=== PATIENT | male | born 1955 | race Caucasian/White ===

== ENCOUNTER 2024-06-20 20:24 | Inpatient (IN) | payer OTHER, SELFPAY ==
[2024-06-20 18:08] VITALS: BP 117/65
[2024-06-20 18:25] LABS: % Basophils 0.6 % (0-2); % Eosinophils 2.5 % (0-6); % Immature Granulocytes 0.1 % (0-0.5); % Lymphocytes 12.6 % (20.5-51.1); % Monocytes 8.1 % (1.7-9.3); % Neutrophils 76.1 % (42.2-75.2); Absolute Eosinophils 0.2 10^3/uL (0-0.7); Absolute Lymphocytes 0.9 10^3/uL (1.2-3.4); Absolute Monocytes 0.6 10^3/uL (0.1-0.6); Absolute Neutrophils 5.2 10^3/uL (1.4-6.5); Hematocrit 23.1 % (39.0-52.0); Hemoglobin 7.7 g/dL (13.0-18.0); Mean Corp Hgb Conc. 33.3 g/dL (33.0-37.0); Mean Corpuscular Hgb 30.9 pg (27.0-31.0); Mean Corpuscular Volume 92.8 fL (80.0-94.0); Mean Platelet Volume 9.5 fL (7.4-10.4); Nucleated Red Blood Cells % 0 % (-); Platelet Count 179 10^3/uL (130-400); Red Blood Cell Count 2.49 10^6/uL (4.70-6.10); Red Cell Dist. Width 15.6 % (11.5-14.5); White Blood Cell Count 6.9 10^3/uL (4.8-10.8)
[2024-06-20 18:33] LABS: ALT (SGPT) 28 U/L (0-50); AST (SGOT) 37 U/L (17-59); Albumin 3.3 g/dl (3.5-5.0); Alkaline Phosphatase 168 U/L (38-126); Blood Urea Nitrogen 41 mg/dl (9-20); Calcium 12.7 mg/dl (8.4-10.2); Carbon Dioxide 28 mmol/L (22-30); Chloride 93 mmol/L (98-107); Glucose 116 mg/dl (70-99); Potassium 3.9 mmol/L (3.5-5.1); Sodium 131 mmol/L (135-145); Total Bilirubin 0.6 mg/dl (0.2-1.3); Total Protein 6.1 g/dl (6.3-8.2); eGFR 24.89
[2024-06-20 18:47] LABS: NT-proBNP > 27000 pg/ml
--- NOTE | 2024-06-20 19:06 | ED.GENMED ---
History of Present Illness
<Mitra Spencer MD - Last Filed: 06/20/24 19:20>
General
Chief Complaint: Breathing Problem
Time Seen by Provider: 06/20/24 18:09
<Josemanuel Abel Jr., PA-C - Last Filed: 06/20/24 20:54>
General
Source: patient and ambulance crew
Exam Limitations: none
Nursing documentation reviewed up to this point in time: agreed with
History of Present Illness
History of Present Illness:
68-year-old male coming from nursing facility with concerns of worsening shortness of breath and cough over the past few days. Apparently does wear nasal cannula according to the nursing staff but he claims he does not typically use this on a daily
basis. Here he is requiring 4 L for pulse ox in the mid 90s. He claims has been coughing up green sputum denies any chest pain denies any specific symptoms other than shortness of breath and cough.
Review of Systems
<Josemanuel Abel Jr., PA-C - Last Filed: 06/20/24 20:54>
Review of Systems
Allergies reviewed?: Yes
All Other Systems: ROS reviewed and negative except as documented in HPI and ROS
Phy Exam
<Josemanuel Abel Jr., PA-C - Last Filed: 06/20/24 20:54>
Physical Exam
Physical Exam:
GENERAL: Alert
EYE: pupils equal and reactive
NECK: Supple, no significant adenopathy.
ENT: o/p clr, mmm.
CARDIAC: Regular rate and rhythm .
LUNGS: Diminished lung sounds to the left side. Scattered rales to the right side slightly to But able to use in full sentences.
ABDOMEN: Soft, without focal tenderness, no r/g, no cvat
NEUROLOGICAL: Alert and oriented, no focal neuro deficits
SKIN: Warm and dry, skin intact.
MUSCULOSKELETAL: No edema, well perfused.
PSYCH: Normal and appropriate interaction.
Scores
<Josemanuel Abel Jr., PA-C - Last Filed: 06/20/24 20:54>
Heart Failure Risk
Heart Failure Risk Score: Not Applicable
Course
<Mitra Spencer MD - Last Filed: 06/20/24 19:20>
Orders/Labs/Results
Orders:
Orders
06/20/24 18:11
Electrocardiogram (*1) Urgent
Reason for Study: Shortness of Breath
Cr Chest Portable [CR Chest Portable - 1 View] Urgent
Comment:
Reason For Exam: SOB
Reason Study Needs to be Portable: Patient Unstable
06/20/24 18:12
EKG- Treatment ONCE
06/20/24 18:13
Complete Blood Count/With Diff Urgent
Comprehensive Metabolic Panel Urgent
NT-proBNP Urgent
Troponin I Urgent
06/20/24 19:23
Cefepime HCl [Maxipime] 2,000 mg IV NOW STA
Vancomycin [Vancocin] 1,500 mg 0.9% Sodium Chloride 500 ml [Nss] 500 ml IV PRE PROCEDURE
06/20/24 19:[address] [CT Chest W/o Iv Contrast] Urgent
Comment:
Reason For Exam: left sided effusion
06/20/24 19:36
COVID-19 Antigen Urgent
Source: Nasal Swab
Influenza A+B Rapid Molecular Urgent
APRIL Source: Nasal Swab
Specimen Description:
06/20/24 19:44
Vancomycin [Vancocin] 2,000 mg 0.9% Sodium Chloride 500 ml [Nss] 500 ml IV NOW
06/20/24 20:02
Aspirin 325 mg PO NOW STA
Heparin 4,000 units IV NOW STA
Heparin Protocol- PTT Orders As Directed
PTT per Heparin protocol: -Obtain CBC and baseline PTT - if not already collected.
-Obtain PTT 6 hours from start of infusion. Then, every 6 hours until 2 consecutive
PTT's are therapeutic. Then, PTT Daily.
-With each rate change, obtain PTT every 6 hours until 2 consecutive PTT's are
therapeutic. Then, PTT Daily.
Nursing to Place Non Medication Order As Directed
Physician Order: PTT 6 hours after initial start of Heparin infusion
Above order entered?: Yes
06/20/24 20:14
Admit/Transfer Patient As Directed
Co-Sign Provider:
Level of Care: Inpatient admission
Assign to:: Telemetry
Physician / Group: htay
Diagnosis: Symptomatic Lt pleural effusion, NSTEMI, Acute CHF flare, Bradycardia, ESRD
Reason for Telemetry: Subacute Heart Failure
Date to Stop Telemetry: 06/22/24
Time to Stop Telemetry: 11:00
Reason for Hospitalization: Symptomatic Lt pleural effusion, NSTEMI, Acute CHF flare, Bradycardia, ESRD on HD
Expected length of stay greater than two midnights?: Yes
ELOS- Estimated Length of Stay in days: 5
I certify the patient meets the requirements for IP care: Yes
06/20/24 20:15
Heparin 79236 Units/250 ml 25,000 units in 250 ml IV PER PROTOCOL
Weight to be used for heparin protocol in kilograms (kg):: 78.8
Protocol:: Cardiac Tx/Acute Coronary
PTT Goal Range to be used:: PTT 73 to 111 seconds
Order type:: Initial
INITIAL Infusion Dose (UNITS/KG/hr) & then follow protocol:: 12 units/kg/hr
Infusion Dose in UNITS/hr & then follow protocol (UNITS/hr):: 950
INFUSION RATE in mL/hr & then follow protocol (mL/hr):: 9.5
PTT less than or equal to 64 seconds:: Increase rate by 200 units/hr (+ 2 mL/hr)
PTT 64.1 to 72.9 seconds:: Increase rate by 100 units/hr (+ 1 mL/hr)
PTT 73 to 111 seconds:: Target Range. No change in rate.
PTT 111.1 to 130.9 seconds:: Decrease rate by 100 units/hr (- 1 mL/hr)
PTT 131 to 199.9 seconds:: HOLD for 1 hr. Then decrease rate by 200 units/hr (- 2 mL/hr)
PTT greater than or equal to 200 seconds:: HOLD for 2 hrs & Notify Provider. Then decrease by 200 units/hr (-
2 mL/hr)
Lab follow-up:: Each change, PTT q6h until 2 consecutive are therapeutic. Then PTT
daily.
06/20/24 20:17
Lactic Acid Urgent
PTT Urgent
Comment: Obtain baseline before beginning heparin infusion if not already collected
Blood Culture Q30M
APRIL Source: Blood/Venous
Specimen Description:
Blood Culture Q30M
APRIL Source: Blood/Venous
Specimen Description:
06/22/24 06:00
Complete Blood Count/No Diff Q2D
Comment: notify provider: Platelet count < 130,000 or decrease by 50% from baseline
06/22/24 11:00
DC Protocol for Telemetry ONCE
06/24/24 06:00
Complete Blood Count/No Diff Q2D
Comment: notify provider: Platelet count < 130,000 or decrease by 50% from baseline
06/26/24 06:00
Complete Blood Count/No Diff Q2D
Comment: notify provider: Platelet count < 130,000 or decrease by 50% from baseline
06/28/24 06:00
Complete Blood Count/No Diff Q2D
Comment: notify provider: Platelet count < 130,000 or decrease by 50% from baseline
06/30/24 06:00
Complete Blood Count/No Diff Q2D
Comment: notify provider: Platelet count < 130,000 or decrease by 50% from baseline
07/02/24 06:00
Complete Blood Count/No Diff Q2D
Comment: notify provider: Platelet count < 130,000 or decrease by 50% from baseline
07/04/24 06:00
Complete Blood Count/No Diff Q2D
Comment: notify provider: Platelet count < 130,000 or decrease by 50% from baseline
07/06/24 06:00
Complete Blood Count/No Diff Q2D
Comment: notify provider: Platelet count < 130,000 or decrease by 50% from baseline
Abnormal Lab Results
06/20/24 06/20/24
18:13 20:17
RBC 2.49 L 10^6/uL
(4.70-6.10)
Hgb 7.7 L g/dL
(13.0-18.0)
Hct 23.1 L %
(39.0-52.0)
RDW 15.6 H %
(11.5-14.5)
Absolute Lymphs (auto) 0.9 L 10^3/uL
(1.2-3.4)
Neutrophils % 76.1 H %
(42.2-75.2)
Lymphocytes % 12.6 L %
(20.5-51.1)
APTT 36.5 H Sec
(23.4-35.0)
Sodium 131 L mmol/L
(135-145)
Chloride 93 L mmol/L
(98-107)
BUN 41 H mg/dl
(9-20)
Creatinine 2.7 H mg/dL
(0.7-1.3)
Glucose 116 H mg/dl
(70-99)
Calcium 12.7 H mg/dl
(8.4-10.2)
Alkaline Phosphatase 168 H U/L
(38-126)
Troponin I 9.830 H* ng/ml
Total Protein 6.1 L g/dl
(6.3-8.2)
Albumin 3.3 L g/dl
(3.5-5.0)
06/20/24 18:13
06/20/24 18:13
Vital Signs
Initial and Last Documented VS:
Initial Vital Signs
Temp Pulse Resp BP Pulse Ox
97.4 F 41 25 117/65 97
06/20/24 18:08 06/20/24 18:08 06/20/24 18:08 06/20/24 18:08 06/20/24 18:08
Last Documented Vital Signs
Temp Pulse Resp BP Pulse Ox
97.4 F 40 26 117/64 97
06/20/24 18:08 06/20/24 19:25 06/20/24 19:25 06/20/24 19:25 06/20/24 19:25
<Josemanuel Abel Jr., PA-C - Last Filed: 06/20/24 20:54>
Orders/Labs/Results
Orders:
Orders
06/20/24 18:11
Electrocardiogram (*1) Urgent
Reason for Study: Shortness of Breath
Cr Chest Portable [CR Chest Portable - 1 View] Urgent
Comment:
Reason For Exam: SOB
Reason Study Needs to be Portable: Patient Unstable
06/20/24 18:12
EKG- Treatment ONCE
06/20/24 18:13
Complete Blood Count/With Diff Urgent
Comprehensive Metabolic Panel Urgent
NT-proBNP Urgent
Troponin I Urgent
06/20/24 19:23
Cefepime HCl [Maxipime] 2,000 mg IV NOW STA
Vancomycin [Vancocin] 1,500 mg 0.9% Sodium Chloride 500 ml [Nss] 500 ml IV PRE PROCEDURE
06/20/24 19:[address] [CT Chest W/o Iv Contrast] Urgent
Comment:
Reason For Exam: left sided effusion
06/20/24 19:36
COVID-19 Antigen Urgent
Source: Nasal Swab
Influenza A+B Rapid Molecular Urgent
APRIL Source: Nasal Swab
Specimen Description:
06/20/24 19:44
Vancomycin [Vancocin] 2,000 mg 0.9% Sodium Chloride 500 ml [Nss] 500 ml IV NOW
06/20/24 20:02
Aspirin 325 mg PO NOW STA
Heparin 4,000 units IV NOW STA
Heparin Protocol- PTT Orders As Directed
PTT per Heparin protocol: -Obtain CBC and baseline PTT - if not already collected.
-Obtain PTT 6 hours from start of infusion. Then, every 6 hours until 2 consecutive
PTT's are therapeutic. Then, PTT Daily.
-With each rate change, obtain PTT every 6 hours until 2 consecutive PTT's are
therapeutic. Then, PTT Daily.
Nursing to Place Non Medication Order As Directed
Physician Order: PTT 6 hours after initial start of Heparin infusion
Above order entered?: Yes
06/20/24 20:14
Admit/Transfer Patient As Directed
Co-Sign Provider:
Level of Care: Inpatient admission
Assign to:: Telemetry
Physician / Group: htay
Diagnosis: Symptomatic Lt pleural effusion, NSTEMI, Acute CHF flare, Bradycardia, ESRD
Reason for Telemetry: Subacute Heart Failure
Date to Stop Telemetry: 06/22/24
Time to Stop Telemetry: 11:00
Reason for Hospitalization: Symptomatic Lt pleural effusion, NSTEMI, Acute CHF flare, Bradycardia, ESRD on HD
Expected length of stay greater than two midnights?: Yes
ELOS- Estimated Length of Stay in days: 5
I certify the patient meets the requirements for IP care: Yes
06/20/24 20:15
Heparin 95696 Units/250 ml 25,000 units in 250 ml IV PER PROTOCOL
Weight to be used for heparin protocol in kilograms (kg):: 78.8
Protocol:: Cardiac Tx/Acute Coronary
PTT Goal Range to be used:: PTT 73 to 111 seconds
Order type:: Initial
INITIAL Infusion Dose (UNITS/KG/hr) & then follow protocol:: 12 units/kg/hr
Infusion Dose in UNITS/hr & then follow protocol (UNITS/hr):: 950
INFUSION RATE in mL/hr & then follow protocol (mL/hr):: 9.5
PTT less than or equal to 64 seconds:: Increase rate by 200 units/hr (+ 2 mL/hr)
PTT 64.1 to 72.9 seconds:: Increase rate by 100 units/hr (+ 1 mL/hr)
PTT 73 to 111 seconds:: Target Range. No change in rate.
PTT 111.1 to 130.9 seconds:: Decrease rate by 100 units/hr (- 1 mL/hr)
PTT 131 to 199.9 seconds:: HOLD for 1 hr. Then decrease rate by 200 units/hr (- 2 mL/hr)
PTT greater than or equal to 200 seconds:: HOLD for 2 hrs & Notify Provider. Then decrease by 200 units/hr (-
2 mL/hr)
Lab follow-up:: Each change, PTT q6h until 2 consecutive are therapeutic. Then PTT
daily.
06/20/24 20:17
Lactic Acid Urgent
PTT Urgent
Comment: Obtain baseline before beginning heparin infusion if not already collected
Blood Culture Q30M
APRIL Source: Blood/Venous
Specimen Description:
Blood Culture Q30M
APRIL Source: Blood/Venous
Specimen Description:
06/22/24 06:00
Complete Blood Count/No Diff Q2D
Comment: notify provider: Platelet count < 130,000 or decrease by 50% from baseline
06/22/24 11:00
DC Protocol for Telemetry ONCE
06/24/24 06:00
Complete Blood Count/No Diff Q2D
Comment: notify provider: Platelet count < 130,000 or decrease by 50% from baseline
06/26/24 06:00
Complete Blood Count/No Diff Q2D
Comment: notify provider: Platelet count < 130,000 or decrease by 50% from baseline
06/28/24 06:00
Complete Blood Count/No Diff Q2D
Comment: notify provider: Platelet count < 130,000 or decrease by 50% from baseline
06/30/24 06:00
Complete Blood Count/No Diff Q2D
Comment: notify provider: Platelet count < 130,000 or decrease by 50% from baseline
07/02/24 06:00
Complete Blood Count/No Diff Q2D
Comment: notify provider: Platelet count < 130,000 or decrease by 50% from baseline
07/04/24 06:00
Complete Blood Count/No Diff Q2D
Comment: notify provider: Platelet count < 130,000 or decrease by 50% from baseline
07/06/24 06:00
Complete Blood Count/No Diff Q2D
Comment: notify provider: Platelet count < 130,000 or decrease by 50% from baseline
Abnormal Lab Results
06/20/24 06/20/24
18:13 20:17
RBC 2.49 L 10^6/uL
(4.70-6.10)
Hgb 7.7 L g/dL
(13.0-18.0)
Hct 23.1 L %
(39.0-52.0)
RDW 15.6 H %
(11.5-14.5)
Absolute Lymphs (auto) 0.9 L 10^3/uL
(1.2-3.4)
Neutrophils % 76.1 H %
(42.2-75.2)
Lymphocytes % 12.6 L %
(20.5-51.1)
APTT 36.5 H Sec
(23.4-35.0)
Sodium 131 L mmol/L
(135-145)
Chloride 93 L mmol/L
(98-107)
BUN 41 H mg/dl
(9-20)
Creatinine 2.7 H mg/dL
(0.7-1.3)
Glucose 116 H mg/dl
(70-99)
Calcium 12.7 H mg/dl
(8.4-10.2)
Alkaline Phosphatase 168 H U/L
(38-126)
Troponin I 9.830 H* ng/ml
Total Protein 6.1 L g/dl
(6.3-8.2)
Albumin 3.3 L g/dl
(3.5-5.0)
06/20/24 18:13
06/20/24 18:13
Vital Signs
Initial and Last Documented VS:
Initial Vital Signs
Temp Pulse Resp BP Pulse Ox
97.4 F 41 25 117/65 97
06/20/24 18:08 06/20/24 18:08 06/20/24 18:08 06/20/24 18:08 06/20/24 18:08
Last Documented Vital Signs
Temp Pulse Resp BP Pulse Ox
97.4 F 40 26 117/64 97
06/20/24 18:08 06/20/24 19:25 06/20/24 19:25 06/20/24 19:25 06/20/24 19:25
<Josemanuel Abel Jr., PA-C - Last Filed: 06/20/24 20:54>
MDM/Problems Addressed
MDM/Problems Addressed:
60-year-old male presenting to the emergency department from nursing facility with concerns of worsening shortness of breath and cough. Requiring 4 L nasal cannula to maintain pulse ox 90s. Tachypneic on arrival. Pulse ox in the low 40s sinus
bradycardia first-degree AV block. No known history of this. Does of a history of end-stage renal disease last dialysis was a full session which was yesterday, does not history of CHF hypertension hyperlipidemia and GERD. Labs showing hemoglobin
of 7.7. No old records of the patient's previous CBCs were with the patient. He claims that the history of anemia when questioned. He is unsure how low his typical. Initial Trope of 9.8. BNP greater than 27,000. Chest x-ray was performed
showing the left lung with a complete pleural effusion. Unclear the chronicity of this we have no old imaging of him. He is unsure if he has had this in the past. He started on antibiotics IR was contacted about this for drainage. Cardiology was
also contacted but the patient's elevated troponin level and BNP. He denies any recent chest pain. Cardiology saw the patient at bedside did bedside ultrasound seems less likely be specific cardiac in origin plan to trend troponins and monitor.
Patient was given dose of aspirin and started on heparin. Chest CT ordered for further assessment with complete lung consolidation as well as pleural effusion. Case discussed with pulmonary admitted to the ICU.
<Josemanuel Abel Jr., PA-C - Last Filed: 06/20/24 20:54>
*Critical Care Note
Total Time (30-74mins, 75-104mins- exclusive of procedures): Not Applicable (Critical care statement: A total of 40 minutes of critical care time was provided for this patient. This includes management of unstable vital signs, evaluation of the
patient at bedside, reviewing the patient's pertinent medical records, discussion with consultants, review of old EKGs and review of)
ED Attending Note
<Mitra Spencer MD - Last Filed: 06/20/24 19:20>
ED Attending Note
Patient seen and examined by attending physician: Yes
I performed the substantive portion of visit, reviewed & personally made and approve the management plan that is documented in note by myself or JIMMY.: Yes
ED Attending Note:
Patient appears tachypneic but able to speak in full sentences. He appears tired and pale. He appears chronically ill. Patient is actively coughing and has diminished breath sounds bilaterally, left greater than right. Patient's heart rate is in
the 30s to 40s. Patient reports he does have a history of a slow heart rate. Patient has no sign of ascites or abdominal tenderness. He has no lower extremity edema. Patient reports that he had a full dialysis treatment yesterday. Patient
admits to increase shortness of breath and cough productive of mucus.
-
Portions of this chart may have been created with voice recognition software.� Occasional wrong word or��sound alike� substitutions may have occurred due to the inherent limitations of voice recognition software.
Discharge Plan
Departure
Patient Disposition: Admit
Date of Disposition: 06/20/24
Time of Disposition: 20:52
Admit to: ICU
Admit to doctor: Sofia
Presentation/result/management discussed w/ accepting MD/DO: Hospitalist
Patient with high blood pressure during this ER visit?: No
Condition: Fair
Covid-19: Not Applicable
Discharge Problem:
Pleural effusion on left, Consolidation lung, Elevated troponin, Hypoxia, Acute pneumonia
Interventions
Interventions:
*General Assessment Last Done: 06/20/24 18:04
*ED- Fall Risk Assessment Last Done: 06/20/24 19:23
ED- Cardiac Assessment Last Done: 06/20/24 19:23
ED- Pulmonary Assessment Last Done: 06/20/24 19:23
[2024-06-20 19:25] VITALS: BP 117/64
[2024-06-20] MEDS: MAXIPIME 2000 MG IV (19:37)
--- NOTE | 2024-06-20 20:01 | HPS.HSE ---
Family Physician
-
Family Physician: NOT KNOW UNKNOWN - PT DOES
Chief Complaint
-
SoB, cough, green sputum
History of Present Illness
HPI
68M No prior DH admission , Res NH , PEG TF depedent, PRN Home O2 depedent , HX ESRD on HD on MWF, completed Full HD yesterday seen at ER:
- concerns of worsening shortness of breath and cough over the past few days.
- wear NC O2 PRN ay NH
- report SoB
- Upon arriva; requiring 4 L POx in mid 90s.
- coughing up green sputum
ROS:
denies any chest pain denies any specific symptoms other than shortness of breath and cough.
Tx @ ER
- Pending CTC wo contrast
- Empiric IV vanco and Cefepibne
- Pending Covid and Flu A & B
Medical History
Past Medical History
Past Medical History: Reports CHF, GERD, HTN, Hypercholesterolemia, Hypothyroidism and Renal Failure (ESRD on HD ( MWF) )
Additional Past Medical History:
PEG tube dependent nutrition and for medication
Past Surgical History: Reports Other (PEG placement )
Social History
Tobacco: Non-smoker
Alcohol: None
Living: Long Term
Family History
Family History: Not pertinent
Allergies / Home Medications
Allergies reflects when Allergies were last updated in [facility].
Home Medications with original date entered in [facility]
Allergy/Medication List:
Allergies
Allergy/AdvReac Type Severity Reaction Status Date / Time
No Known Allergies Allergy Unverified 06/20/24 18:04
Home Medications
Pantoprazole Oral Packet 2mg/1ml 10 mg feeding tube DAILY 06/20/24
acetaminophen 325 mg tablet (Tylenol) 650 mg feeding tube Q6HPRN PRN MILD PAIN 06/20/24
albuterol sulfate 2.5 mg/3 mL (0.083 %) solution for nebulization 2.5 mg inhalation R Q4HPRN PRN SOB 06/20/24
amlodipine 10 mg tablet (Norvasc) 10 mg feeding tube DAILY 06/20/24
aspirin 81 mg tablet,delayed release 81 mg feeding tube DAILY 06/20/24
bisacodyl 10 mg rectal suppository (Dulcolax (bisacodyl)) 10 mg VT DAILYPRN PRN IF NO BM AFTR SUROLOSE 06/20/24
bumetanide 1 mg tablet 1 mg feeding tube MOWEFR 06/20/24
bumetanide 1 mg tablet 4 mg feeding tube LORENZO@0800 06/20/24
bupropion HCl 100 mg tablet 150 mg PO BID VIA PEG-TUBE 06/20/24
carboxymethylcellulose 0.5 %-glycerin 0.9 % eye drops (Refresh Optive) 1 drp BOTH EYES Q2HPRN PRN DRYNESS 06/20/24
carvedilol 6.25 mg tablet (Coreg) 6.25 mg feeding tube BID 06/20/24
cinacalcet 60 mg tablet 120 mg PO MOWE@1300 VIA PEG-TUBE 06/20/24
folic acid 1 mg tablet 2 mg feeding tube HS 06/20/24
hydralazine 25 mg tablet 25 mg feeding tube QID 06/20/24
losartan 25 mg tablet 25 mg feeding tube SuTuThSa@1900 06/20/24
melatonin 5 mg tablet 5 mg feeding tube HS 06/20/24
oseltamivir 30 mg capsule (Tamiflu) 30 mg feeding tube MOWEFR AFTER HD 06/20/24
rosuvastatin 5 mg tablet (Crestor) 5 mg feeding tube HS 06/20/24
sevelamer carbonate 0.8 gram oral powder packet (Renvela) 0.8 g feeding tube AC 06/20/24
tamsulosin 0.4 mg capsule (Flomax) 0.4 mg PO MOWEFR VIA PEG-TUBE 06/20/24
Review of Systems
-
Constitutional: Reports No Symptoms
EENT: Reports No Symptoms
Respiratory: Reports See HPI
Cardiac: Reports No Symptoms
Abdomen/GI: Reports No Symptoms
: Reports No Symptoms
Musculoskeletal: Reports No Symptoms
Skin: Reports No Symptoms
Neurological: Reports No Symptoms
Endocrine: Reports No Symptoms
Hematologic/Lymphatic: Reports No Symptoms
Psych: Reports No Symptoms
Physical Exam
Vital Signs
Vital Signs
Temp Pulse Resp BP Pulse Ox
97.4 F 40 26 117/64 97
06/20/24 18:08 06/20/24 19:25 06/20/24 19:25 06/20/24 19:25 06/20/24 19:25
Physical Exam
General: Well Developed, Well Nourished, No Apparent Distress and Other (Lt chest HD cath )
HEENT: NormoCephalic, Moist mucous membranes, Atraumatic and Other (slurred speech - chronic )
Respiratory: Clear
Cardiac: S1/S2 and Regular Rhythm; No Murmur or Rub
GI: Soft, Non Tender, Non Distended, Normal Bowel Sounds and Other (PEG in epigastrium ); No Organomegaly
Rectal: Deferred by Provider
Musculoskeletal: No Clubbing, No Cyanosis and No Edema
Skin: No Rash
Neuro: AO x 3 and Nonfocal/grossly intact
Psych: Calm and Intact Judgment/Insight
Laboratory Results
-
06/20/24 18:13
06/20/24 18:13
Laboratory Results
Total Bilirubin 0.6 mg/dl (0.2-1.3) 06/20/24 18:13
AST 37 U/L (17-59) 06/20/24 18:13
ALT 28 U/L (0-50) 06/20/24 18:13
Alkaline Phosphatase 168 U/L (38-126) H 06/20/24 18:13
Troponin I 9.830 ng/ml H* 06/20/24 18:13
Data Reviewed
-
CT Scan: Other (pending )
Medical Tests (Nuc Med, Echo, EKG etc): Other (pending EKG )
Lab Data: Labs Reviewed by me
Impression/Plan
-
Vital Signs
Temp Pulse Resp BP Pulse Ox
97.4 F 40 26 117/64 97
06/20/24 18:08 06/20/24 19:25 06/20/24 19:25 06/20/24 19:25 06/20/24 19:25
Lab
06/20/24
18:13
WBC 6.9
Hgb 7.7 L
MCV 92.8
Plt Count 179
Sodium 131 L
Potassium 3.9
Chloride 93 L
Carbon Dioxide 28
BUN 41 H
Creatinine 2.7 H
Alkaline Phosphatase 168 H
Troponin I 9.830 H*
Qxo-K-Pojmaofjzhe Pept > 58770
Albumin 3.3 L
EKG pending
CXR : report pending, noted complete white out of Lt Lung
CT Chest W/o Iv Contrast
1. Complete endobronchial obstruction of the left mainstem bronchus containing layering secretions. SEVERE NEAR COMPLETE AIRSPACE CONSOLIDATION of the LEFT UPPER and LOWER LOBES (either atelectasis or pneumonia).
2. LARGE LEFT PLEURAL EFFUSION.
3. Moderate to large right pleural effusion.
4. Moderate to severe cardiomegaly.
5. Severe calcific atherosclerotic plaque in the coronary arteries.
6. Right IJ hemodialysis catheter in place.
7. Chronic impacted fracture of the right proximal humerus.
No prior hospitalist admission:
ASSESSMENT & PLAN
Acute on chronic hypoxic RF
- multifactorial origin ( Lt sided pleural efusion, CHF flare , PNA etc)
- Management as below
- O2 supplement to keep POx > 93%
Severe near complete airspace consolidation of BRAD and LLL - Atx vs PNA per CTC
Complete endobronchial obstruction of the left mainstem bronchus containing layering secretions.
Productive Cough with greenish colored sputum
Afebrile and Nl WCC
- agree with CTC to eval tumor, PNA etc
- IV Vanco and Zosyn
- Pul consulted
Symptomatic Lt sided complete pleural effusion
DDX: para pneumonic vs CHF vs Malignant
- IR consulted for Rxtic and Dxtic Lt sided thoracentesis including cytology
Significant POS TPNI - NSTEMI vs NIMI
- agree with Heparin gtt
- CBC Card consulted
Significant elevated proBNP > 27K
Acute HF vs subacute CHF
HX CHF but unknown type
- ECHO
- volume management by HD
- c/w PNEUMATIC SYSTEMS OPERATOR PO Bumex
- Hold Carvedilol due to severe bradycardia
- daily Wt
- CBC card evaluation
Chr bradycardia 40s
- Hold Carvedilol
- Observe HR on TLM
- check TSH
HX ESRD on HD ( MWF )
Anemia of chr dz
- had full HD on yesterday
- c/w Cinacalcet, Renvela
- Obtain prior report of Hgb
- Renal consult
Recent Flu
On Tamiflu 30mg MWF after HD
Benign HTN
- c/w Amlodipine, Losartan, Hydralazine
- Hold carvedilol
HLD
- c/w Rosuvastatin
BPH
- c/w Flomax
Depression
- on PNEUMATIC SYSTEMS OPERATOR Bupropion
PEG TF dependent
- Solderer Assembler consult for for TF
DVT Px: SCD
DNR per patient in the presence of FEED MILL OPERATOR
IMU
[2024-06-20 20:05] LABS: COVID-19 Antigen Negative (Negative)
--- NOTE | 2024-06-20 20:12 | CON.CAR ---
Consultation
Consultation Request
Date/Time Consultation Requested: June 20, 2024 7:00
Date/Time Consultation Performed: June 20, 2024 8:15 pm
Requesting Provider: ER
Performing Provider: Harish Wolf
Reason for Consultation: Elevated trop
Medical History
-
Chief Complaint: SOB
History of Present Illness:
68-year-old male with past medical history of carotid artery disease status post right CEA at [facility], end-stage renal disease, hypertension, dyslipidemia, heart failure reduced ejection fraction EF reportedly 40 to 45%,
and CVA who is here for shortness of breath. He is a poor historian and is unable to give much detail. However, he tells me that he started feeling short of breath about a week ago. This has progressed till he has darted to have conversational
dyspnea. Thus, he is at a rehab center but they brought him in because of this.
In the emergency room he is bradycardic with heart rate around 40 and lab work has revealed an elevated troponin to [address] CT showing significant findings outlined below.
CT Chest: IMPRESSION:
1. Complete endobronchial obstruction of the left mainstem bronchus containing layering secretions. SEVERE NEAR COMPLETE AIRSPACE CONSOLIDATION of the LEFT UPPER and LOWER LOBES (either atelectasis or pneumonia).
2. LARGE LEFT PLEURAL EFFUSION.
3. Moderate to large right pleural effusion.
4. Moderate to severe cardiomegaly.
5. Severe calcific atherosclerotic plaque in the coronary arteries.
6. Right IJ hemodialysis catheter in place.
7. Chronic impacted fracture of the right proximal humerus.
Past Medical History
Past Medical History: Other (ESRD, CVA, PAD s/p R CEA Dr Miller [facility], HTN Dyslipidemia )
Past Surgical History: Other (CEA R DR Miller [facility] )
Social History
Tobacco: Non-Smoker
Alcohol: None
Drug: None
Employment: Not Employed
Family History
Family History: Unable to Obtain
Allergies / Home Medications
Allergy/AdvReac Type Severity Reaction Status Date / Time
No Known Allergies Allergy Unverified 06/20/24 18:04
�Medication �Instructions �Recorded �Confirmed �Type
Pantoprazole Oral Packet 2mg/1ml 10 mg feeding tube DAILY 06/20/24 06/20/24 History
acetaminophen 325 mg tablet 650 mg feeding tube Q6HPRN PRN 06/20/24 06/20/24 History
(Tylenol) MILD PAIN
albuterol sulfate 2.5 mg/3 mL 2.5 mg inhalation R Q4HPRN PRN SOB 06/20/24 06/20/24 History
(0.083 %) solution for nebulization
amlodipine 10 mg tablet (Norvasc) 10 mg feeding tube DAILY 06/20/24 06/20/24 History
aspirin 81 mg tablet,delayed 81 mg feeding tube DAILY 06/20/24 06/20/24 History
release
bisacodyl 10 mg rectal suppository 10 mg PA DAILYPRN PRN IF NO BM 06/20/24 06/20/24 History
(Dulcolax (bisacodyl)) AFTR SUROLOSE
bumetanide 1 mg tablet 1 mg feeding tube MOWEFR 06/20/24 06/20/24 History
bumetanide 1 mg tablet 4 mg feeding tube LORENZO@0800 06/20/24 06/20/24 History
bupropion HCl 100 mg tablet 150 mg PO BID VIA PEG-TUBE 06/20/24 06/20/24 History
carboxymethylcellulose 0.5 1 drp BOTH EYES Q2HPRN PRN DRYNESS 06/20/24 06/20/24 History
%-glycerin 0.9 % eye drops
(Refresh Optive)
carvedilol 6.25 mg tablet (Coreg) 6.25 mg feeding tube BID 06/20/24 06/20/24 History
cinacalcet 60 mg tablet 120 mg PO MOWE@1300 VIA PEG-TUBE 06/20/24 06/20/24 History
folic acid 1 mg tablet 2 mg feeding tube HS 06/20/24 06/20/24 History
hydralazine 25 mg tablet 25 mg feeding tube QID 06/20/24 06/20/24 History
losartan 25 mg tablet 25 mg feeding tube Ricardo@1900 06/20/24 06/20/24 History
melatonin 5 mg tablet 5 mg feeding tube HS 06/20/24 06/20/24 History
oseltamivir 30 mg capsule (Tamiflu) 30 mg feeding tube MOWEFR AFTER HD 06/20/24 06/20/24 History
rosuvastatin 5 mg tablet (Crestor) 5 mg feeding tube HS 06/20/24 06/20/24 History
sevelamer carbonate 0.8 gram oral 0.8 g feeding tube AC 06/20/24 06/20/24 History
powder packet (Renvela)
tamsulosin 0.4 mg capsule (Flomax) 0.4 mg PO MOWEFR VIA PEG-TUBE 06/20/24 06/20/24 History
Review of Systems
-
All other systems: Negative unless noted
Physical Exam
Vital Signs
Temp Pulse Resp BP Pulse Ox
97.4 F 40 26 117/64 97
06/20/24 18:08 06/20/24 19:25 06/20/24 19:25 06/20/24 19:25 06/20/24 19:25
Lab Results
06/20/24 18:13
06/20/24 18:13
Troponin I 9.830 ng/ml H* 06/20/24 18:13
Wem-N-Ahljvrcgdve Pept > 34861 pg/ml 06/20/24 18:13
Physical Exam
General: Respiratory Distress and Other (chronically ill appearing )
HEENT: Normocephalic and Anicteric
Respiratory: Other (crackles and coarse b/s; absent breath sounds over right side )
Cardiac: Regular Rhythm and Other (bradycardic distant lung sounds)
GI: Soft and Other (PEG tube )
Musculoskeletal: No Edema
Skin: Warm and Dry
Neuro: AO x 3
Psych: Calm
Impression / Plan
-
A/P: 68-year-old male with past medical history of carotid artery disease status post right CEA at [facility], end-stage renal disease, hypertension, dyslipidemia, heart failure reduced ejection fraction EF reportedly 40 to
45%, and CVA who is here for shortness of breath. He has a significantly elevated troponin however, he has no symptoms of ischemia at the moment. He does have significant shortness of breath, however, he has a large left pleural effusion as well
as significant airway secretions that are almost compromising his airway likely contributing to this feeling. Additionally, I obtained a [id number]-bt-akxi ultrasound that showed no obvious wall motion abnormality with an ejection fraction approximately
35%.
Shortness of breath large pleural effusion lung consolidation
- Will need likely therapeutic and diagnostic thoracocentesis
- Blood cultures antibiotics per primary
Secretions in the left mainstem bronchus
- Would consider pulmonary consult
Elevated troponin
- trend trop
- NSTEMI versus nonischemic myocardial injury although this would be elevated for this.
- Presumed NSTEMI with treatment of aspirin and heparin for 48 hours
- Echocardiogram on Saturday with likely coronary angiography pending clinical status
- EKG tomorrow morning
- Aspirin daily low-dose
Heart failure reduced ejection fraction EF approximately 35% on my exam
- Obtain full echo on Saturday
Carotid artery disease s/p R CEA
- cont statin and aspirin will make this high dose
ESRD
- nephro consult
HTN
- would hold anti-HTN for now
Anemia
- likely of chronic disease per primary
Hyponatremia
Given significant lung findings on CT of Chest condition is extremely guarded
Data Reviewed
-
EKG: Tracing Personally Visualized and interpreted (sinus jay )
Radiology: Image Personally Visualized and interpreted and Report Reviewed by me
Labs: Labs Reviewed by me
[2024-06-20] MEDS: ASPIRIN 325 MG PO (20:30)
[2024-06-20] MEDS: VANCOCIN 540 MG IV (20:30)
[2024-06-20] MEDS: HEPARIN 25000 UNITS/250 ML IV (20:31)
[2024-06-20] MEDS: HEPARIN 4000 UNITS IV (20:31)
[2024-06-20 20:39] LABS: APTT 36.5 Sec (23.4-35.0)
[2024-06-20 20:43] LABS: Lactic Acid 0.8 mmol/L (0.7-2.0)
--- NOTE | 2024-06-20 23:30 | EDRN ---
Report received, checked on patient, rolled him to get him off of linen and sheets, placed pillow under his left hand side for comfort, rechecked vital signs and released orders, call pérez in reach at this time as well
[2024-06-20 23:31] VITALS: BP 116/83
[2024-06-21] VITALS (31 sets, daily range): BP systolic 36–149; BP diastolic 54–76; BMI 23.0
[2024-06-21] MEDS: FOLVITE 2 MG TUBE ×2 (00:01→19:59)
[2024-06-21] MEDS: MELATONIN 5 MG TUBE ×2 (00:01→19:59)
[2024-06-21] MEDS: APRESOLINE 25 MG TUBE ×2 (00:02→09:42)
[2024-06-21] MEDS: VENTOLIN NEBULES 2.5 MG INH ×3 (03:01→19:22)
[2024-06-21 03:03] LABS: APTT 82.8 Sec (23.4-35.0)
--- NOTE | 2024-06-21 03:11 | EDRN ---
Patient rolled and pillow placed under right side, patient coughing up a lot of phlegm, gave breathing treatment as ordered, patients repeat PTT is in the target range, drip will remain the same, repeat PTT in 6 hours.
[2024-06-21 03:41] LABS: TSH 4.03 uIU/ml (0.47-4.68)
--- NOTE | 2024-06-21 03:43 | EDRN ---
Patients repeat troponin level back, informed AXEL Johnson who is covering IMU, no new orders at this time, patient reports the breathing treatment helped him.
--- NOTE | 2024-06-21 03:48 | W.PN.UPDATE ---
Update Note
Progress Note Update
Discussed code status with the patient as requested by the nursing staff.
Reviewed the code status with the patient. Patient request to be limited DNR, ok for CPR, pressors and defibrillation and (No intubation/vent).
[2024-06-21] MEDS: MAXIPIME 1000 MG IV (04:01)
[2024-06-21] MEDS: STERILE WATER FOR INJECTION 10 ML IV (04:01)
--- NOTE | 2024-06-21 07:14 | PHA.VAN.IN ---
Assessment
- Assessment
Renal Function: Patient has ESRD, on chronic Hemodialysis
Hemodialysis Schedule: MWF (Last HD 06/19)
Maximum Temperature: 98.2
Minimum Temperature: 97.4
Concomitant Antimicrobials: Cefepime, Oseltamivir
Plan
- Plan
Initial / Loading Dose: Vanc 2000mg given 06/20 at 2030
Maintenance Regimen: Dose by level post HD
Monitoring: Random levels. R ordered for 06/22 AM
Pharmacokinetics Vancomycin I
- -
Patient Age: 68
Patient Sex: Male
Vancomycin Day #: 1
Indication: Pulmonary/Respiratory
Requesting Provider: Sofia
Height / Weight:
Height 6 ft
Actual Weight 78.8 kg
IBW in k.6
Adjusted BW in k.1
Pertinent Past Medical History: ESRD, HD MWF
- Vital Signs / Lab Results
Temp Pulse Resp BP Pulse Ox
98.2 F 39 16 124/65 99
06/21/24 03:00 06/21/24 06:00 06/21/24 06:00 06/21/24 06:00 06/21/24 05:45
Lab Results - Hematology
06/20/24
18:13
WBC 6.9
Lab Results - Chemistry
06/20/24
18:13
BUN 41 H
Creatinine 2.7 H
Albumin 3.3 L
06/20/24
20:17
Lactic Acid 0.8
Microbiology Results
06/20/24 19:36 Influenza Types A & B (JOVON) - Final
Nasal Swab Negative for Influenza A & B, NAAT
Negative results must be combined with clinical observations
and patient history.
Nucleic Acid Amplification test (NAAT)performed on the
[employer] platform.
--- NOTE | 2024-06-21 08:04 | W.PN.HOSP.TC ---
Today's Communication/Plan
-
Continue IV Diuresis with Bumex
Right-Sided Thoracentesis tomorrow (Left-Sided took place today)
Pulmonary Toilet
No antibiotics or antiviral needed at this time
Holding antihypertensives and AV-Manfred blocking agents
Dialysis tomorrow
Continue to monitor in IMU
Assessment / Plan
Assessment / Plan
Physical Exam
General: Not in acute distress
HEENT: Normocephalic, Moist mucous membranes, Atraumatic and Other (Slurred speech - chronic )
Respiratory: Rhonchi
Cardiac: S1/S2 and Regular Rhythm
GI: Soft, Non Tender, Non Distended, Normal Bowel Sounds and Other (PEG tube in epigastrium)
Musculoskeletal: No Cyanosis and No Edema
Skin: Warm. Dry.
Neuro: AAO x 3 and Nonfocal/grossly intact
Psych: Calm and Intact Judgment/Insight
Assessment/Plan
68 y/o M No prior DH admission, Res NH, PEG TF dependent, PRN Home O2 dependent, HX ESRD on HD on MWF, completed Full HD 06/19/24 presented with worsening shortness of breath and hypoxia needing nasal cannula oxygen round the clock (use PRN oxygen
supplementation outpatient). Productive cough.
Complete endobronchial obstruction of the left mainstem bronchus containing layering secretions -- suspected aspiration (history of stroke)
Severe Near Complete Airspace Consolidation of the Left Upper AND Lower Lobes/Near Complete Collapse of Left Lung
Left Lung Compressive Atelectasis with associated Large Left Pleural Effusion
Acute Hypoxic Respiratory Failure Secondary to the Above and Bilateral Pleural Effusions
- Strict n.p.o., head end to be raised, aspiration precautions
- Hold tube feeding for now
- Albuterol and hypertonic saline 3 times daily for airway clearance
- Pulmonary consulted appreciated
- No antibiotics or Tamiflu needed right now -- afebrile with normal WBC count -- follow pleural studies
- Thoracentesis and hypertonic saline should help, but if not, patient will bronchoscopy
- Monitor in IMU
Large Left Pleural Effusion
Moderate to Large Right Pleural Effusion
-LT Thoracentesis on 06/21/24: 1450 cc straw-colored pleural fluid
-RT Thoracentesis is expected to be done on 06/22/24
-Follow fluid studies
Possible NSTEMI versus Non-Ischemic Myocardial Injury
-Continue Heparin Drip
-Daily Aspirin
-Possible cardiac cath this week
-CBC Card consulted
Acute on chronic heart failure with reduced ejection fraction
- proBNP>[id number]
- Echo for 06/22/24
- volume management by HD
- IV Bumex
- Hold Carvedilol due to severe bradycardia
- daily Wt
- I's and O's
- CBC card evaluation
History of CVA with left hemiparesis, dysarthria and dysphagia
PEG TF dependent
History of Stroke
- NPO at baseline
- Furnace Attendant consult for for TF recommendations -- but hold tube feeding for now given concern for aspiration even from tube feeding
Severe calcific atherosclerotic plaque in the coronary arteries on CT Chest
Sinus bradycardia with first degree heart block.
- Hold Carvedilol
- Cardiology will discuss with EP for possible PPM
- Continue cardiac monitoring in IMU
ESRD on HD ( MWF )
Right IJ Hemodialysis Catheter
Anemia of Chronic Disease
- had full HD on 06/19/24
- c/w Cinacalcet for secondary hyperparathyroidism
- Continue Renvela for hyperphosphatemia
- Nephrology consulted, dialysis tomorrow
- PAPITO to be provided for anemia
Hyponatremia
-Suspected hypervolemic
-Continue IV Bumex
-Dialysis tomorrow
Recent Flu
Benign Hypertension
- Hold antihypertensives for now
Hyperlipidemia
- c/w Rosuvastatin
Carotid artery disease s/p R CEA
- cont statin and aspirin will make this high dose
Chronic impacted fracture of the right proximal humerus on CT Chest
BPH
- c/w Flomax
Depression
- on CYBER OPERATOR Bupropion
DVT Prophylaxis: SCD. Heparin Drip.
Code Status: Limited DNR (See Update Note from Filiberto Stanford on 06/21/24)
QUARTER DOPER: Daughter, Tawnya Kauffman [phone]
Anticipated Discharge: > 48 hours
Subjective/Interval History
-
Date of Service: June 21, 2024
Patient was seen and examined. No new complaints.
Objective Data
-
Labs:
Laboratory Results
06/20/24 06/21/24 06/21/24
20:17 02:39 08:30
Hct
APTT 36.5 H 82.8 H Pending
Glucose
06/21/24
11:00
Hct Pending
APTT
Glucose Pending
Vital Signs:
Vital Signs
Temp Pulse Resp BP Pulse Ox
98.2 F 39 18 134/63 99
06/21/24 03:00 06/21/24 07:59 06/21/24 07:59 06/21/24 07:59 06/21/24 07:59
[2024-06-21] MEDS: ASPIR LOW (ENTERIC COATED) 81 MG PO (09:41)
[2024-06-21] MEDS: WELLBUTRIN REGULAR RELEASE 150 MG PO ×2 (09:41→19:59)
[2024-06-21] MEDS: NORVASC 10 MG TUBE (09:42)
[2024-06-21 10:24] LABS: APTT 69.3 Sec (23.4-35.0)
--- NOTE | 2024-06-21 10:28 | CON.INTV ---
Consultation
Consultation Request
Date/Time Consultation Requested: 06/20/2024
Date/Time Consultation Performed: 06/21/2024
Requesting Provider: Eric Black
Performing Provider: Rubina Garcia
Reason for Consultation: Shortness of breath
Medical History
-
Chief Complaint: Shortness of breath
History of Present Illness:
Patient is a 60-year-old gentleman with known history of carotid artery disease status post right CEA in the past, end-stage renal disease on hemodialysis, hypertension, hyperlipidemia, congestive heart failure with reduced ejection fraction of 40
to 45% as well as history of stroke in the past, who was brought from the shelter facility for worsening shortness of breath. Patient reportedly has been feeling short of breath over the last couple of weeks which has been progressively
getting worse. Reported diagnosis of low enzymes patient has been on Tamiflu. In view of worsening respiratory status he was transferred to the emergency room for further workup. Imaging in the emergency room showing showed near complete collapse
of the left lung with large pleural effusion as well as moderate pleural effusion on the right side. Patient also was noted to have significantly elevated troponin along with sinus bradycardia. Patient was started on broad-spectrum antibiotics,
aspirin as well as heparin drip for suspected NSTEMI and was admitted to hospitalist service.
In view of large effusion, interventional radiology and pulmonary service were requested for further input.
Past Medical History: Reports CHF, GERD, HTN, Hypercholesterolemia, Hypothyroidism and Renal Failure (ESRD on HD ( MWF) )
Additional Past Medical History:
PEG tube dependent nutrition and for medication
Past Surgical History: Reports Other (PEG placement )
Social History
Tobacco: Patient reports that he is smoking very rarely and minimally over his lifetime. No known history of COPD, asthma or emphysema.
Alcohol: None
Living: Jail
Family History
Family History: Not pertinent
Allergies / Home Medications
Allergies / Home Medications
Allergies
Allergy/AdvReac Type Severity Reaction Status Date / Time
No Known Allergies Allergy Unverified 06/20/24 18:04
Home Medications
�Medication �Instructions �Recorded �Confirmed �Last Taken �Type
Pantoprazole Oral Packet 2mg/1ml 10 mg feeding tube DAILY 06/20/24 06/20/24 06/20/24 History
acetaminophen 325 mg tablet 650 mg feeding tube Q6HPRN PRN 06/20/24 06/20/24 06/05/24 History
(Tylenol) MILD PAIN
albuterol sulfate 2.5 mg/3 mL 2.5 mg inhalation R Q4HPRN PRN SOB 06/20/24 06/20/24 06/20/24 History
(0.083 %) solution for nebulization
amlodipine 10 mg tablet (Norvasc) 10 mg feeding tube DAILY 06/20/24 06/20/24 06/20/24 History
aspirin 81 mg tablet,delayed 81 mg feeding tube DAILY 06/20/24 06/20/24 06/20/24 History
release
bisacodyl 10 mg rectal suppository 10 mg DE DAILYPRN PRN IF NO BM 06/20/24 06/20/24 06/19/24 History
(Dulcolax (bisacodyl)) AFTR SUROLOSE
bumetanide 1 mg tablet 1 mg feeding tube MOWEFR 06/20/24 06/20/24 06/14/24 History
bumetanide 1 mg tablet 4 mg feeding tube LORENZO@0800 06/20/24 06/20/24 06/19/24 History
bupropion HCl 100 mg tablet 150 mg PO BID VIA PEG-TUBE 06/20/24 06/20/24 06/20/24 History
carboxymethylcellulose 0.5 1 drp BOTH EYES Q2HPRN PRN DRYNESS 06/20/24 06/20/24 Unknown History
%-glycerin 0.9 % eye drops
(Refresh Optive)
carvedilol 6.25 mg tablet (Coreg) 6.25 mg feeding tube BID 06/20/24 06/20/24 06/20/24 History
cinacalcet 60 mg tablet 120 mg PO MOWE@1300 VIA PEG-TUBE 06/20/24 06/20/2406/19/25 History
folic acid 1 mg tablet 2 mg feeding tube HS 06/20/24 06/20/24 06/19/24 History
hydralazine 25 mg tablet 25 mg feeding tube QID 06/20/24 06/20/24 06/20/24 History
losartan 25 mg tablet 25 mg feeding tube SuTuThSa@1900 06/20/24 06/20/24 06/18/24 History
melatonin 5 mg tablet 5 mg feeding tube HS 06/20/24 06/20/24 06/19/24 History
oseltamivir 30 mg capsule (Tamiflu) 30 mg feeding tube MOWEFR AFTER HD 06/20/24 06/20/24 06/19/24 History
rosuvastatin 5 mg tablet (Crestor) 5 mg feeding tube HS 06/20/24 06/20/24 06/19/24 History
sevelamer carbonate 0.8 gram oral 0.8 g feeding tube AC 06/20/24 06/20/24 06/20/24 History
powder packet (Renvela)
tamsulosin 0.4 mg capsule (Flomax) 0.4 mg PO MOWEFR VIA PEG-TUBE 06/20/24 06/20/24 06/19/24 History
Review of Systems
-
Hematologic/Lymphatic: Other (All 14 systems reviewed and negative except as stated above in the history of present illness.)
Vitals / Labs / Diagnostic Testing
Vital Signs
Temp Pulse Resp BP Pulse Ox
97.5 F 39 19 147/74 97
06/21/24 08:41 06/21/24 10:15 06/21/24 10:15 06/21/24 09:42 06/21/24 10:15
Laboratory Results
06/20/24 06/21/24 06/21/24
20:17 02:39 09:56
APTT 36.5 H 82.8 H 69.3 H
Microbiology
06/20/24 19:36 Nasal Swab Influenza Types A & B (JOVON) - Final
Negative for Influenza A & B, NAAT
Negative results must be combined with clinical observations
and patient history.
Nucleic Acid Amplification test (NAAT)performed on the
[employer] platform.
Diagnostic Testing:
Physical Exam
-
HEENT: Normocephalic
Cardiovascular: S1/S2 and Other (Left arm edema, previously affected by stroke)
Respiratory: Rhonchi and Other (Decreased air entry on the left side.)
GI: Soft and Non Distended
Neurology: Awake and Alert
Skin: Warm
General: Other (Mildly increased work of breathing)
Assessment
-
#1. Shortness of breath, suspect primarily related to bilateral pleural effusions with near complete collapse of left lung.
-? Etiology of effusion, suspect related to volume overload with history of congestive heart failure as well as end-stage renal disease, BNP significantly elevated at 27,000
- Patient needs thoracentesis starting with the left side considering symptomatic large pleural effusion. Send fluid for cell count, LDH, protein, cytology, Gram stain and cultures, triglycerides.
- Hold antibiotics for now, further recommendations after review of pleural fluid studies
- Patient reports prior history of thoracentesis at [facility], currently currently details are not available
- Reported recent influenza, and repeat testing here has been negative, discontinue Tamiflu
#2. Left lung atelectasis versus pneumonia. Patient has large pleural effusion with suspected compressive atelectasis. I do not appreciate any air bronchogram on the CT scan. Patient is afebrile, has normal WBC count. He does have cough but has
fairly clear expectoration.
- Clinically more suggestive of compressive atelectasis due to large effusions rather than pneumonia. Influenza AB screen is negative. MRSA screen pending, blood cultures pending. COVID-19 screen negative. DC Tamiflu
- Hold antibiotics, (was started on vancomycin and cefepime), and follow-up on pleural fluid studies
- Will review follow-up imaging after thoracentesis
- Minimal smoking history, no history of COPD, asthma or emphysema.
#3. Left mainstem layering secretions, suspect aspiration. Patient has history of stroke and is n.p.o. at baseline and is currently on tube feeding.
- Strict n.p.o., head end to be raised, aspiration precautions
- Hold tube feeding for now
- Start albuterol and hypertonic saline 3 times daily for airway clearance
- Monitor response to hypertonic saline as well as thoracentesis, if persistent might need bronchoscopy for airway clearance
#4. Acute on chronic heart failure with reduced ejection fraction. Reported history of systolic dysfunction in the past. LVEF, 40-45%.
- Continue HD for volume removal
- Patient still makes some urine, will switch Bumex to IV and BID
Other medical issues:
- NSTEMI. No chest pain. on ASA/Heparin. Cardiology service on case
- History of CVA with left hemiparesis, dysarthria and dysphagia. Patient is not n.p.o. at baseline and is on PEG tube feeding
- Sinus bradycardia with first degree heart block. Cardiology service in place. Coreg on hold.
- End-stage renal disease, on hemodialysis. Patient has a right upper chest permacath in place.
Total time spent on this consultation/encounter __81__ minutes which includes review of history, physical exam, medications, laboratory data, personal review of imaging, extensive review of outpatient records, discussion with care team and
respiratory therapy.
Discussed with primary team, [employer] [facility] consultant. Updated patient's daughter.
Data:
CXR 05/2024: 1. Near complete opacification of the left hemithorax which is likely secondary to a large left pleural effusion and airspace consolidation (compressive atelectasis or pneumonia).
2. Moderate ground-glass opacity in the infrahilar right lower lung which could be subsegmental atelectasis or pneumonia.
3. Right IJ hemodialysis catheter in place.
4. Chronic impacted fracture of the right humeral neck.
CT Chest 05/2024: 1. Complete endobronchial obstruction of the left mainstem bronchus containing layering secretions. SEVERE NEAR COMPLETE AIRSPACE CONSOLIDATION of the LEFT UPPER and LOWER LOBES (either atelectasis or pneumonia).
2. LARGE LEFT PLEURAL EFFUSION.
3. Moderate to large right pleural effusion.
4. Moderate to severe cardiomegaly.
5. Severe calcific atherosclerotic plaque in the coronary arteries.
6. Right IJ hemodialysis catheter in place.
7. Chronic impacted fracture of the right proximal humerus.
[2024-06-21] MEDS: PREVACID 15 MG TUBE (10:59)
--- NOTE | 2024-06-21 11:40 | W.CON.NEPH ---
Consultation
-
Date/Time Consultation Requested: 06/21/2024 11:00 AM
Date/Time Consultation Performed: 06/21/2024 1148
Requesting Provider: Dr. Yin
Performing Provider: Dr. Sen
Reason for Consultation: End-stage renal disease
Medical History
-
Chief Complaint: End-stage renal disease
History of Present Illness:
68-year-old male with past medical history of carotid artery disease status post right CEA at [facility], end-stage renal disease (MWF dialysis), hypertension (maintained on losartan amlodipine and hydralazine), secondary
hyperparathyroidism maintained on Cinacalcet, dyslipidemia, heart failure reduced ejection fraction EF reportedly 40 to 45%, and CVA who presented for shortness of breath over the past week. This has progressed till he has darted to have
conversational dyspnea. Thus, he is at a rehab center but they brought him in because of this.
In the emergency room he is bradycardic with heart rate around 40 and lab work has revealed an elevated troponin to [address] CT showing bilateral effusion with near complete collapse of left lung field. Patient has suspected non-ST
elevation OK as evidenced by a troponin elevation of 10.7. Nephrology was consulted for end-stage renal disease manage.
Past Medical History
Congestive heart failure GERD hypertension dyslipidemia hypothyroidism end-stage renal disease on Saturday PEG tube
Social History
Tobacco: Smoker
Alcohol: None
Living: Shelter
Family History
no ckd
Allergies / Home Medications
Allergy/AdvReac Type Severity Reaction Status Date / Time
No Known Allergies Allergy Unverified 06/20/24 18:04
�Medication �Instructions �Recorded �Confirmed �Type
Pantoprazole Oral Packet 2mg/1ml 10 mg feeding tube DAILY 06/20/24 06/20/24 History
acetaminophen 325 mg tablet 650 mg feeding tube Q6HPRN PRN 06/20/24 06/20/24 History
(Tylenol) MILD PAIN
albuterol sulfate 2.5 mg/3 mL 2.5 mg inhalation R Q4HPRN PRN SOB 06/20/24 06/20/24 History
(0.083 %) solution for nebulization
amlodipine 10 mg tablet (Norvasc) 10 mg feeding tube DAILY 06/20/24 06/20/24 History
aspirin 81 mg tablet,delayed 81 mg feeding tube DAILY 06/20/24 06/20/24 History
release
bisacodyl 10 mg rectal suppository 10 mg [place] DAILYPRN PRN IF NO BM 06/20/24 06/20/24 History
(Dulcolax (bisacodyl)) AFTR SUROLOSE
bumetanide 1 mg tablet 1 mg feeding tube MOWEFR 06/20/24 06/20/24 History
bumetanide 1 mg tablet 4 mg feeding tube LORENZO@0800 06/20/24 06/20/24 History
bupropion HCl 100 mg tablet 150 mg PO BID VIA PEG-TUBE 06/20/24 06/20/24 History
carboxymethylcellulose 0.5 1 drp BOTH EYES Q2HPRN PRN DRYNESS 06/20/24 06/20/24 History
%-glycerin 0.9 % eye drops
(Refresh Optive)
carvedilol 6.25 mg tablet (Coreg) 6.25 mg feeding tube BID 06/20/24 06/20/24 History
cinacalcet 60 mg tablet 120 mg PO MOWE@1300 VIA PEG-TUBE 06/20/24 06/20/24 History
folic acid 1 mg tablet 2 mg feeding tube HS 06/20/24 06/20/24 History
hydralazine 25 mg tablet 25 mg feeding tube QID 06/20/24 06/20/24 History
losartan 25 mg tablet 25 mg feeding tube SuTuThSa@1900 06/20/24 06/20/24 History
melatonin 5 mg tablet 5 mg feeding tube HS 06/20/24 06/20/24 History
oseltamivir 30 mg capsule (Tamiflu) 30 mg feeding tube MOWEFR AFTER HD 06/20/24 06/20/24 History
rosuvastatin 5 mg tablet (Crestor) 5 mg feeding tube HS 06/20/24 06/20/24 History
sevelamer carbonate 0.8 gram oral 0.8 g feeding tube AC 06/20/24 06/20/24 History
powder packet (Renvela)
tamsulosin 0.4 mg capsule (Flomax) 0.4 mg PO MOWEFR VIA PEG-TUBE 06/20/24 06/20/24 History
Review of Systems
-
History Source: Patient
All other systems: Negative unless noted
Respiratory: Cough and Trouble Breathing
Abdomen/GI: Other (PEG)
: Other (Some urine production)
Musculoskeletal: Other (Left hemiparesis)
Neurological: Other (Chronic left hemiparesis)
Physical Exam
Vital Signs
Vital Signs
Temp Pulse Resp BP Pulse Ox
97.5 F 39 19 147/74 98
06/21/24 11:00 06/21/24 10:15 06/21/24 10:15 06/21/24 09:42 06/21/24 11:13
Lab Results
WBC 6.9 10^3/uL (4.8-10.8) 06/20/24 18:13
RBC 2.49 10^6/uL (4.70-6.10) L 06/20/24 18:13
Hgb 7.7 g/dL (13.0-18.0) L 06/20/24 18:13
Plt Count 179 10^3/uL (130-400) 06/20/24 18:13
Sodium 131 mmol/L (135-145) L 06/20/24 18:13
Potassium 3.9 mmol/L (3.5-5.1) 06/20/24 18:13
Chloride 93 mmol/L (98-107) L 06/20/24 18:13
Carbon Dioxide 28 mmol/L (22-30) 06/20/24 18:13
BUN 41 mg/dl (9-20) H 06/20/24 18:13
Creatinine 2.7 mg/dL (0.7-1.3) H 06/20/24 18:13
eGFR 24.89 06/20/24 18:13
Calcium 12.7 mg/dl (8.4-10.2) H 06/20/24 18:13
Mnm-R-Lipjcxzubfj Pept > 97096 pg/ml 06/20/24 18:13
Albumin 3.3 g/dl (3.5-5.0) L 06/20/24 18:13
Physical Exam
General: AOx3, Nontoxic , NAD, chronically ill-appearing cachectic
HEENT: PERRL, EOMI, Anicteric, Conjunctivae pale, Ear/Nose Intact, Hearing Normal, Oropharynx Clear/Moist, Dentition Intact, Facial Symmetry, Neck Supple, Neck: Trachea Midline, No JVD and No Thyromegaly, no Bruits
Respiratory: Coarse to auscultation , no breath sounds along left side lung field
Cardiac: S1/S2 and Regular Rate/Rhythm : jay
Breast: Deferred by me
Abdomen: Soft, Nontender, Nondistended, Normal Bowel Sounds and No Hepatosplenomegaly, PEG
Rectal: Deferred by Provider
Genito-urinary: No Costovertebral Tenderness
Extremities: No Clubbing, No Cyanosis and No Edema
Skin: No Rash or open lesions
Neuro: Left-sided hemiparesis
Hematologic/Lymphatic: No Cervical Lymphadenopathy, No Submandibular Lymphadenopathy and No Supraclavicular Lymphadenopathy
Psych: Mood/afflect pleasant, Insight/judgement good and Appropriate
Vascular: plus 1 pedal and radial pulses
Vascular Access: CVC (Right upper chest)
Data Reviewed
-
Radiology: Image Personally Visualized and interpreted (Chest x-ray personally reviewed shows complete left-sided lung whiteout, right tunneled IJ dialysis catheter)
CT Scan: Image Personally Visualized and interpreted (Chest CT report reviewed endobronchial obstruction of left mainstem bronchus, large left pleural effusion. Moderate right pleural effusion)
Medical Tests (Nuc Med, Echo etc): Other (EKG report reviewed sinus bradycardia with first-degree AV block at 41 bpm nonspecific intraventricular conduction delay nonspecific T wave abnormality)
Labs: Labs Reviewed by me (BMP CBC)
Assessment/Plan
-
Impression:
ESRD MWF
Hypoxia/left lung atelectasis versus pneumonia
Large left pleural effusion
Acute on chronic congestive heart
Anemia
Hypertension hx
Hyponatremia
Secondary hyperparathyroidism
Hyperphosphatemia
PEG
Non-ST elevation OK
History of stroke with subsequent left hemiparesis dysarthria and dysphagia
Tunneled right HD IJ catheter
Chronic impacted right proximal humerus fracture
Plan:
HD will be provided for tomorrow,orders given
PAPITO to be provided for anemia
Maintain Cinacalcet for secondary hyperparathyroidism
Maintain sevelamer for hyperphosphatemia
Patient for left-sided thoracentesis today
--- NOTE | 2024-06-21 12:27 | PTCARENOTE ---
Rec'd pt from the ED, Sinus Ismael with a 1st degree HB on tele, aware. HR 30s, asymptomatic. BP stable. heparin drip infusing for elevated trops. Pt currently at [facility] for thoracentesis.
--- NOTE | 2024-06-21 12:35 | W.PN.CD ---
Today's Communication / Plan
-
ABx
Thoracentesis?
cont tele
echo tomorrow
Impression / Plan
-
A/P: 68-year-old male with past medical history of carotid artery disease status post right CEA at [facility], end-stage renal disease, hypertension, dyslipidemia, heart failure reduced ejection fraction EF reportedly 40 to
45%, and CVA who is here for shortness of breath. He has a significantly elevated troponin however, he has no symptoms of ischemia at the moment. He does have significant shortness of breath, however, he has a large left pleural effusion as well
as significant airway secretions that are almost compromising his airway likely contributing to this feeling. Additionally, I obtained a ylduu-jv-fvkc ultrasound that showed no obvious wall motion abnormality with an ejection fraction approximately
35%.
Shortness of breath large pleural effusion lung consolidation
- Will need likely therapeutic and diagnostic thoracocentesis
- Blood cultures antibiotics per primary
Secretions in the left mainstem bronchus
- Pulmonary aware
Elevated troponin
- trend trop
- NSTEMI versus nonischemic myocardial injury although this would be elevated for this.
- Presumed NSTEMI with treatment of aspirin and heparin for 48 hours
- Echocardiogram on Saturday with likely coronary angiography pending clinical status
- EKG tomorrow morning
- Aspirin daily low-dose
Heart failure reduced ejection fraction EF approximately 35% on my exam
- Obtain full echo on Saturday
- ESRD
- GDMT when able
Significant bradycardia likley sinus node dysfunction
- will discuss with EP for possible PPM although would need to be clear of infection risk
Carotid artery disease s/p R CEA
- cont statin and aspirin will make this high dose
ESRD
- nephro consult
HTN
- would hold anti-HTN for now
Anemia
- likely of chronic disease per primary
Hyponatremia
Subjective: Feeling slightly better today
Physical Exam
Vital Signs/Labs
Vital Signs
Temp Pulse Resp BP Pulse Ox
97.5 F 36 21 125/67 98
06/21/24 11:00 06/21/24 12:20 06/21/24 12:20 06/21/24 12:20 06/21/24 12:20
06/20/24 06/21/24 06/22/24
06:59 06:59 06:59
Actual Weight 173 lb 11.588 oz 164 lb 14.492 oz
APTT 69.3 Sec (23.4-35.0) H 06/21/24 09:56
TSH 4.03 uIU/ml (0.47-4.68) 06/21/24 02:39
06/20/24
18:13
Qxu-S-Mjzburypejd Pept > 64848
LAB Results
06/20/24 06/21/24 06/21/24
18:13 02:39 09:56
Troponin I 9.830 H* 10.400 H* 10.700 H*
Physical Exam
Constitutional: No acute distress
EENT: Anicteric
Cardiovascular: Rhythm & rate is regular
Respiratory: Other (coarse b/s with no appreciation on left side )
GI: Soft
Neuro/Psych: AO x 3
Data Reviewed
-
Date of Service: June 21, 2024
Medical Decision Making: Reviewed Test Results
EKG: Tracing Personally Visualized and interpreted (jay)
Labs: Labs Reviewed by me
[2024-06-21] MEDS: APRESOLINE TUBE (13:16)
[2024-06-21] MEDS: BUMEX IV ×3 (13:17→14:25)
[2024-06-21 13:23] LABS: Body Fluid Mononuclear 63.2 %; Body Fluid Polymorphonuclear 36.8 %; Body Fluid WBC 277 /CUMM
[2024-06-21 13:25] LABS: Body Fluid Second Tech HB
[2024-06-21 13:28] LABS: Body Fluid pH 7.43
[2024-06-21 13:43] LABS: Body Fluid Amylase < 30 U/L; Body Fluid Glucose 73 mg/dl; Body Fluid LDH 95 U/L; Body Fluid Protein 2.5 g/dl; Body Fluid Triglycerides < 30 mg/dl
[2024-06-21] MEDS: SODIUM CHLORIDE 3% FOR INHALATION 1 VIAL INH ×2 (14:30→19:22)
--- NOTE | 2024-06-21 18:10 | PTCARENOTE ---
Pt returned from [facility] after 1450 removed during thoracentesis. respiratory status improved. Reports feeling better. resting comfortably.remains bradycardic HR 36-41
[2024-06-21 18:12] LABS: APTT 64.8 Sec (23.4-35.0)
--- NOTE | 2024-06-21 18:18 | PTCARENOTE ---
Pt reports he is oliguric. No urine output this shift. bladder scan for 32ml. HD tomorrow.
[2024-06-21 18:24] LABS: LDH 184 U/L (120-246)
[2024-06-21] MEDS: HEPARIN 25000 UNITS/250 ML IV (20:24)
[2024-06-22] VITALS (16 sets, daily range): BP systolic 46–164; BP diastolic 45–93; PULSE 47–51; BMI 22.5
[2024-06-22 01:07] LABS: APTT 81.3 Sec (23.4-35.0)
--- NOTE | 2024-06-22 03:52 | PTCARENOTE ---
Received pt at change of shift. AAOx3; slurred speech from previous CVA. Left side flaccid but still has sensation. No c/o pain. Lungs are coarse with productive cough; using suction PRN. Trops peaked. Heparin gtt running at 1150 units/hr
right right upper arm. HD scheduled for 699. Pt on 4L NC through most of shift. Became increasingly dyspneic; increased O2 to 6L; more comfortable now. Resting in bed with call pérez in reach.
[2024-06-22] MEDS: DEXTROSE 50% SYRINGE 25 GRAMS IV ×3 (04:40→12:55)
[2024-06-22] MEDS: VENTOLIN NEBULES 2.5 MG INH ×4 (04:40→20:07)
[2024-06-22 04:45] LABS: Hemoglobin 7.9 g/dL (13.0-18.0); Mean Corp Hgb Conc. 34.3 g/dL (33.0-37.0); Mean Corpuscular Volume 90.2 fL (80.0-94.0); Mean Platelet Volume 8.9 fL (7.4-10.4); Platelet Count 165 10^3/uL (130-400); Red Blood Cell Count 2.55 10^6/uL (4.70-6.10); Red Cell Dist. Width 15.6 % (11.5-14.5); White Blood Cell Count 5.4 10^3/uL (4.8-10.8)
[2024-06-22 05:03] LABS: B.E. 0 mmol/L; HCO3 24.8 mmol/L (21-28); O2 Saturation % 94.3 % (94-98); PCO2 40 mmHg (35-48); PO2 64 mmHg (83-108)
[2024-06-22 05:05] LABS: Glucose - Point of Care 26 mg/dl (70-99)
--- NOTE | 2024-06-22 05:12 | W.PN.UPDATE ---
Update Note
Progress Note Update
~ 4:30 am Patient c/o chest pain, EKG showed sinus bradycardia w/1st degree AV block, non specific intra-ventricular conduction block, nonspecific T wave abnormality. Troponin slightly elevated 9.130, previous 9.060. Repeat troponin pending.
Patient with increased work of breathing, increased secretions, required increase of supplemental O2 from 4L to 6L NC. Sat 93%. ABG: pH 7.4, pCO2 40, pO2 64, HCO3 24.8, ABG 02 sat 94.3. Portable CXR - report pending.
Breathing treatment given by respiratory. No improvement. Attempted to clear secretions w/cough, unable. Attempted to suction secretions, obtained small amount, still sounds coarse throughout.
Patient noted by RN to be more lethargic, unable to answer questions. Accucheck 29, gave full amp D50, at 15 minute check glucose level 124. Mentation improved, appears to be back to baseline.
VS: BP 147/60, HR 36, Resp 26, temp 94.1. Ordered dov benavides.
Critical lab received: Calcium 13.1. TT Nephrology. HD scheduled for today.
Patient's breathing improved w/correction of hypoglycemia.
[2024-06-22 05:13] LABS: Glucose - Point of Care 124 mg/dl (70-99)
[2024-06-22 05:26] LABS: Blood Urea Nitrogen 57 mg/dl (9-20); Calcium 13.1 mg/dl (8.4-10.2); Carbon Dioxide 23 mmol/L (22-30); Chloride 96 mmol/L (98-107); Estimated Creatinine Clearance 19 ml/min; Glucose < 30 mg/dl (70-99); Potassium 3.7 mmol/L (3.5-5.1); Sodium 132 mmol/L (135-145); eGFR 16.01
--- NOTE | 2024-06-22 05:31 | RR ---
A Rapid Response was called on this patient, please see Rapid Response form.
Pt c/o increased SOB and chest pain on left side of chest. Increased dyspnea during conversation. Notified INSIDE SALES ACCOUNT MANAGER; at bedside to assess. EKG performed. Pt disoriented; oriented at start of shift. RR called. Breathing tx administered by RT. BG
26. Dextrose IV administered. Recheck BG was 124 after 15 mins. Pt more oriented after dextrose dose. Pt temp 94.5 rectally. Lonny benavides ordered and placed on pt with rectal probe for monitoring.
[2024-06-22 07:14] LABS: Glucose - Point of Care 68 mg/dl (70-99)
[2024-06-22] MEDS: SODIUM CHLORIDE 3% FOR INHALATION 1 VIAL INH ×3 (07:32→20:11)
--- NOTE | 2024-06-22 07:32 | W.PN.INTV ---
Today's Communication / Plan
Recommendations
Continue dopamine-attempt to wean
Hemodialysis
Improved after thoracentesis-monitor for fluid reaccumulation
Right thoracentesis
Echocardiogram pending
Begin tube feeds for hypoglycemia
Assessment
-
Patient is a 60-year-old gentleman with known history of carotid artery disease status post right CEA in the past, end-stage renal disease on hemodialysis, hypertension, hyperlipidemia, congestive heart failure with reduced ejection fraction of 40
to 45% as well as history of stroke in the past, who was [facility] for worsening shortness of breath. Patient reportedly has been feeling short of breath over the last couple of weeks which has been progressively
getting worse. Reported diagnosis of low enzymes patient has been on Tamiflu. In view of worsening respiratory status he was transferred to the emergency room for further workup. Imaging in the emergency room showing showed near complete collapse
of the left lung with large pleural effusion as well as moderate pleural effusion on the right side. Patient also was noted to have significantly elevated troponin along with sinus bradycardia. Patient was started on broad-spectrum antibiotics,
aspirin as well as heparin drip for suspected NSTEMI and was admitted to hospitalist service.
In view of large effusion, interventional radiology and pulmonary service were requested for further input.
Past Medical History: Reports CHF, GERD, HTN, Hypercholesterolemia, Hypothyroidism and Renal Failure (ESRD on HD ( MWF) )
Additional Past Medical History:
PEG tube dependent nutrition and for medication
Past Surgical History: Reports Other (PEG placement )
#1. Shortness of breath, suspect primarily related to bilateral pleural effusions with near complete collapse of left lung.
-? Etiology of effusion, suspect related to volume overload with history of congestive heart failure as well as end-stage renal disease, BNP significantly elevated at 27,000
- Patient needs thoracentesis starting with the left side considering symptomatic large pleural effusion. Send fluid for cell count, LDH, protein, cytology, Gram stain and cultures, triglycerides.
- Hold antibiotics for now, further recommendations after review of pleural fluid studies
- Patient reports prior history of thoracentesis at [facility], currently currently details are not available
- Reported recent influenza, and repeat testing here has been negative, discontinue Tamiflu
#2. Left lung atelectasis versus pneumonia. Patient has large pleural effusion with suspected compressive atelectasis. I do not appreciate any air bronchogram on the CT scan. Patient is afebrile, has normal WBC count. He does have cough but has
fairly clear expectoration.
Thoracentesis left side 06/21/24--1450 mL straw-colored fluid-transudate
Thoracentesis on the right side if enough fluid 06/22/24
- Clinically more suggestive of compressive atelectasis due to large effusions rather than pneumonia. Influenza AB screen is negative. MRSA screen pending, blood cultures pending. COVID-19 screen negative. DC Tamiflu
- Hold antibiotics, (was started on vancomycin and cefepime), and follow-up on pleural fluid studies
- Minimal smoking history, no history of COPD, asthma or emphysema.
#3. Left mainstem layering secretions, suspect aspiration. Patient has history of stroke and is n.p.o. at baseline and is currently on tube feeding.
- Strict n.p.o., head end to be raised, aspiration precautionsInitially
- Begin tube feeding especially in light of significant hypoglycemia
-Monitor for aspiration
-Continue with albuterol and hypertonic saline 3 times daily for airway clearance-
#4. Acute on chronic heart failure with reduced ejection fraction. Reported history of systolic dysfunction in the past. LVEF, 40-45%.
- Continue HD for volume removal- Scheduled 06/22/2024
- Patient still makes some urine, Switched to Bumex to IV and BID
#5 Bradycardia
- dopamine as needed
Other medical issues:
- NSTEMI. No chest pain. on ASA/Heparin. Cardiology service on case
- History of CVA with left hemiparesis, dysarthria and dysphagia. Patient is not n.p.o. at baseline and is on PEG tube feeding
- Sinus bradycardia with first degree heart block. Cardiology service in place. Coreg on hold.
- End-stage renal disease, on hemodialysis. Patient has a right upper chest permacath in place.
Critical care statement: A total of 45 minutes of critical care time was provided for this patient today. This includes management of unstable vital signs, evaluation of the patient at bedside, reviewing the patient's pertinent medical records
including radiographs, microbiology, laboratory evaluations, and discussion with primary team, consultants, pharmacy, nutrition, physical therapy, case management, charge nurse, critical care nursing, and respiratory therapy.
Data:
CXR 05/2024: 1. Near complete opacification of the left hemithorax which is likely secondary to a large left pleural effusion and airspace consolidation (compressive atelectasis or pneumonia).
2. Moderate ground-glass opacity in the infrahilar right lower lung which could be subsegmental atelectasis or pneumonia.
3. Right IJ hemodialysis catheter in place.
4. Chronic impacted fracture of the right humeral neck.
CT Chest 05/2024: 1. Complete endobronchial obstruction of the left mainstem bronchus containing layering secretions. SEVERE NEAR COMPLETE AIRSPACE CONSOLIDATION of the LEFT UPPER and LOWER LOBES (either atelectasis or pneumonia).
2. LARGE LEFT PLEURAL EFFUSION.
3. Moderate to large right pleural effusion.
4. Moderate to severe cardiomegaly.
5. Severe calcific atherosclerotic plaque in the coronary arteries.
6. Right IJ hemodialysis catheter in place.
7. Chronic impacted fracture of the right proximal humerus.
Subjective Dataa
Subjective Data
Date of Service:
Date of Service: June 22, 2024
Chief Complaint: Detective Chief Follow Up and Pulmonary Follow Up
Subjective:
Somewhat lethargic, review of systems not obtainable, no respiratory distress, bradycardic, hypoglycemic
Review of Systems
General: Other (Per HPI)
Objective Data
Data Reviewed
Vital Signs / I&O / Oxygen:
Vital Signs
Temp Pulse Resp BP Pulse Ox
94.8 F L 34 9 147/60 99
06/22/24 07:00 06/22/24 06:17 06/22/24 06:17 06/22/24 06:00 06/22/24 06:17
SaO2 99
Nasal Cannula flow liters per 5
minute
Physical Exam
General: Respiratory Distress (n) and Comfortable
HEENT: Normocephalic and Anicteric
Cardiovascular: Regular Rhythm
Respiratory: Crackles, Rhonchi (n), Non-Labored Respirations, Accessory Resp Muscle Use (n) and Stridor
GI: Soft, Non Distended and Non Tender
Neurology: Lethargic
Skin: Warm, Good Color and Cyanosis (n)
Labs/Micro/Reports
Lab Data
06/22/24 04:37
06/22/24 04:37
Laboratory Results
06/21/24 06/21/24 06/22/24
09:56 17:45 00:35
APTT 69.3 H 64.8 H 81.3 H
pH
pCO2
pO2
HCO3
O2 Delivery Level
06/22/24
04:57
APTT
pH 7.40
pCO2 40
pO2 64 L
HCO3 24.8
O2 Delivery Level
Microbiology
06/20/24 20:17 Blood/Venous Blood Culture - Preliminary
No Growth in 24 hours- Final report to follow
06/20/24 20:17 Blood/Venous Blood Culture - Preliminary
No Growth in 24 hours- Final report to follow
06/21/24 12:51 Pleural Fluid Gram Stain - Preliminary
06/20/24 19:36 Nasal Swab Influenza Types A & B (JOVON) - Final
Negative for Influenza A & B, NAAT
Negative results must be combined with clinical observations
and patient history.
Nucleic Acid Amplification test (NAAT)performed on the
[employer] platform.
[2024-06-22 07:44] LABS: Glucose - Point of Care 161 mg/dl (70-99)
--- NOTE | 2024-06-22 07:53 | PTCARENOTE ---
Addendum entered by Concepción Monique RN 06/22/24 08:22:
Dopamine gtt started. HD nurse at bedside initiating dialysis.
Original Note:
Pt received from IMU. Pt drowsy and confused. Sinus jay 30s. BP stable. Temp 95.7 rectally with dov hugger on. 85% on 100% NRB. Currently DNI status. PTT sent for Heparin gtt protocol.
[2024-06-22 08:08] LABS: APTT 111.4 Sec (23.4-35.0)
--- NOTE | 2024-06-22 08:15 | W.PN.HOSP.TC ---
Today's Communication/Plan
-
for right thora today
maintain on dopamine to support HR
pending TTE
re-imitate abx if concern of new infection
trickle TF to help hypoglycemia if pulm status
Assessment / Plan
Assessment / Plan
CT chest
1. Complete endobronchial obstruction of the left mainstem bronchus containing layering secretions. SEVERE NEAR COMPLETE AIRSPACE CONSOLIDATION of the LEFT UPPER and LOWER LOBES (either atelectasis or pneumonia).
2. LARGE LEFT PLEURAL EFFUSION.
3. Moderate to large right pleural effusion.
4. Moderate to severe cardiomegaly.
5. Severe calcific atherosclerotic plaque in the coronary arteries.
6. Right IJ hemodialysis catheter in place.
7. Chronic impacted fracture of the right proximal humerus.

1. Left mainstem bronchus obstruction from secretions
Bilateral pleural effusion
Compression atelectasis
- Patient with history of CVA/PEG tube and on tube feeding
- Maintain n.p.o. and currently tube feedings and held due to concern of aspiration
- Patient was on cefepime, has been discontinued on pulmonology recommendation as there is no supporting evidence of ongoing pneumonia
- Patient underwent left-sided thoracentesis of 1.45 L of transudative fluid. Fluid analysis reports reviewed. Fluid culture has been negative for any growth
- Patient hypoxic again in the morning today and needed to be placed on nonrebreather, transferred to ICU
- Repeat chest x-ray in the morning showed relatively clear lung with known right-sided effusion which is planned to be tapped today by IRAD as well
2. Acute hypoxic respiratory failure
- Secondary to above reason
- Getting right-sided thoracentesis and should help with oxygenation as well
3. Elevated troponin
Rule out NSTEMI
- Cardiology is following
-Troponin max of 10.7
- On asa/heparin drip
-Routine echocardiogram pending
4. Acute on chronic heart failure with reduced ejection fraction
- proBNP>[id number]
- Echo for 06/22/24
- volume management by HD
- Patient makes some urine and currently on IV Bumex as well
- Hold Carvedilol due to severe bradycardia
5. Sinus bradycardia with first-degree block
- Patient heart rate was in 30s and patient was encephalopathic today in morning
- Although Hypoglycemia might be causing encephalopathy, patient started on IV dopamine infusion as well to support heart rate
- Cardiology considering PPM
6. Hypercalcemia
- Difficult to explain, currently 13.7 today, suspecting tertiary hyperparathyroidism
- Patient on Cinacalcet 120mg MOWE
- Discussed with nephro
7. History of CVA with left hemiparesis, dysarthria and dysphagia
PEG TF dependent
- NPO at baseline
- TF on hold due to aspiration risk
8. ESRD on HD ( [facility] )
Right IJ Hemodialysis Catheter
Anemia of Chronic Disease
- had full HD on 06/19/24
- Continue Renvela for hyperphosphatemia
- PAPITO to be provided for anemia
Severe calcific atherosclerotic plaque in the coronary arteries on CT Chest
Right chronically impacted humeral neck fracture -imaging finding on CT chest, needs to be verified with previous records
Hyponatremia
Recent Flu
Benign Hypertension
Hyperlipidemia
Carotid artery disease s/p R CEA
BPH
Depression
DVT Prophylaxis: Heparin Drip.
Code Status: Limited DNR (See Update Note from Filiberto Stanford on 06/21/24)
PROFESSOR OF COMMUNICATION ARTS: Daughter, Tawnya Kauffman [phone]
Total critical care time 43 mins . Total critical care time documented does not include time spent on separately billed procedures or the services of residents, students, nurses or physician assistants. I personally saw and examined the patient. I
have reviewed all diagnostic interpretations and treatment plans as written. I was present for the paulino portions of any procedures performed and the inclusive time noted in any critical care statement. Critical care time includes patient management
by me, time spent at the patients bedside, time to review lab and imaging results, discussing patient care, documentation in the medical record, and time spent with the family or caregiver.
Anticipated Discharge: > 48 hours
Subjective/Interval History
-
Date of Service: June 22, 2024
Patient lethargic and not communicating
Currently on nonrebreather with oxygen saturation 88-90%
Patient was also hypoglycemic and required D5 injection, started on D5 NS at this point
Getting hemodialysis
Patient is persistently bradycardic for last few days and felt to be lower in 30s
Objective Data
-
Labs:
Laboratory Results
06/22/24 06/22/24 06/22/24
00:35 04:37 04:57
WBC 5.4
Hgb 7.9 L
Hct 23.0 L
Plt Count 165
APTT 81.3 H
HCO3 24.8
Sodium 132 L
Potassium 3.7
Chloride 96 L
Carbon Dioxide 23
BUN 57 H
Creatinine 3.9 H
Glucose < 30 L*
Calcium 13.1 H*
06/22/24
07:43
WBC
Hgb
Hct
Plt Count
APTT 111.4 H
HCO3
Sodium
Potassium
Chloride
Carbon Dioxide
BUN
Creatinine
Glucose
Calcium
Vital Signs:
Vital Signs
Temp Pulse Resp BP Pulse Ox
95.8 F L 36 23 147/60 85
06/22/24 08:00 06/22/24 07:32 06/22/24 07:32 06/22/24 06:00 06/22/24 07:32
Review of Systems
-
Unable to obtain full review of systems at this time due to: Acuity
Physical Exam
-
General: No Apparent Distress and Comfortable
HEENT: Oxygen (NRB 88%)
Respiratory: Rhonchi
Cardiac: Regular Rhythm and S1/S2; Negative Murmur or Rub
Musculoskeletal: No Edema
Neuro: Negative Awake or Alert
Psych: Calm
--- NOTE | 2024-06-22 08:41 | W.PN.NEPH.HD ---
Assessment
-
Seen on HD. HR 40s. BP high. Access ok
unresponsive
limit IVF, will try to UF more
Progress Note - Hemodialysis
-
Date of Service: June 22, 2024
Duration: 30 minutes and 3 hours
Potassium Bath: 3
Calcium Bath: 2.5
Opti-Dialyzer: 160
Ultrafiltration: Other (2.5kg)
Blood Flow: 400
Dialysate Flow: 600
Heparin: 0
EPO: 92175 units
--- NOTE | 2024-06-22 08:42 | W.PN.NEPH.PH ---
Today's Communication / Plan
-
HD
Assessment/Plan
-
Impression:
ESRD MWF
Hypoxia/left lung atelectasis versus pneumonia
Large left pleural effusion s/p thoracentesis 06/21
CHF
Anemia
Hypertension hx
Hyponatremia
Secondary hyperparathyroidism
Hyperphosphatemia
PEG
Non-ST elevation IA
History of stroke with subsequent left hemiparesis dysarthria and dysphagia
Tunneled right HD IJ catheter
Chronic impacted right proximal humerus fracture
hypercalcemia
Plan:
HD today
change sensipar to 90mg MWF, unsure why it's only given 2x/week at dialysis
check hypercalcemic workup given severity of hypercalcemia
dopamine gtt
cardiology eval in progress
challenge weight
critical care time 40 minutes
-
-
Date of Service: June 22, 2024
CC / HPI / ROS
-
Chief Complaint:
ESRD
History of Present Illness:
BP high
transferred to ICU with extreme bradycardia in the 30s
Calcium rising, 13.1
BS low, requiring D50 amps
troponin remains stable but elevated ~9
hgb low stable 7.9
critically ill in ICU
Review of Systems:
unresponsive
Labs
-
Labs:
WBC 5.4 10^3/uL (4.8-10.8) 06/22/24 04:37
RBC 2.55 10^6/uL (4.70-6.10) L 06/22/24 04:37
Hgb 7.9 g/dL (13.0-18.0) L 06/22/24 04:37
Hct 23.0 % (39.0-52.0) L 06/22/24 04:37
Plt Count 165 10^3/uL (130-400) 06/22/24 04:37
Sodium 132 mmol/L (135-145) L 06/22/24 04:37
Potassium 3.7 mmol/L (3.5-5.1) 06/22/24 04:37
Chloride 96 mmol/L (98-107) L 06/22/24 04:37
Carbon Dioxide 23 mmol/L (22-30) 06/22/24 04:37
BUN 57 mg/dl (9-20) H 06/22/24 04:37
Creatinine 3.9 mg/dL (0.7-1.3) H 06/22/24 04:37
eGFR 16.01 06/22/24 04:37
Glucose < 30 mg/dl (70-99) L* 06/22/24 04:37
Calcium 13.1 mg/dl (8.4-10.2) H* 06/22/24 04:37
Siy-W-Ezeplewuaxh Pept > 17202 pg/ml 06/20/24 18:13
Albumin 3.3 g/dl (3.5-5.0) L 06/20/24 18:13
Physical Exam
-
Vital Signs:
Vital Signs
Temp Pulse Resp BP Pulse Ox
95.8 F L 36 23 147/60 85
06/22/24 08:00 06/22/24 07:32 06/22/24 07:32 06/22/24 06:00 06/22/24 07:32
Cardiovascular:: Regular rate and rhythm (rady)
Respiratory:: Bilateral: Coarse
Lung Excursion:: Normal
Abdomen:: Nontender and Soft
Bowel Sounds:: Normal
Extremity Edema:: None: Bilateral:
[2024-06-22 09:43] LABS: Glucose - Point of Care 85 mg/dl (70-99)
[2024-06-22] MEDS: RETACRIT 10000 UNITS IV (10:14)
--- NOTE | 2024-06-22 10:17 | CM ---
Addendum entered by Elba Blankenship 06/22/24 16:27:
Patient was at [facility] as a Short term care patient, per nursing at , [facility] it sales representative here to assess concern of patient from SNF. Patient daughter indicated in VM that they did not want go back to SNF. Patient daughter indicated that
plan was to get stable and have therapies at SNF level. CM provided information about SNF options. Patient family indicated they wanted quality care. CM will continue to follow for discharge planning needs.
Plan; SNF
Original Note:
Patient seen at bedside, on HD. Patient from [facility] per address in chart, no transfer form. CM called to liaison at [facility] and await call back with information. CM will continue to follow for discharge planning needs.
Plan; pending confirmation of prior information; return to [facility]
[2024-06-22] MEDS: HEPARIN 3600 UNITS INTRACATH (11:41)
[2024-06-22] MEDS: PREVACID 15 MG TUBE (12:07)
[2024-06-22] MEDS: ASPIR LOW (ENTERIC COATED) 81 MG PO (12:08)
[2024-06-22] MEDS: BUMEX 1 MG IV ×2 (12:08→17:00)
[2024-06-22] MEDS: WELLBUTRIN REGULAR RELEASE 150 MG PO ×2 (12:08→22:11)
[2024-06-22 12:21] LABS: Glucose - Point of Care 60 mg/dl (70-99)
--- NOTE | 2024-06-22 12:37 | PTCARENOTE ---
Pt more alert but remain s confused. Lonny hugger off. Temp 98.8F. Dopamine off. HR 51. BG 60. 4oz apple juice given via tube. Spoke with RD and requested tube feeds recs. SpO2 92% on 6L NC. All other assessments unchanged. Daughter updated.
Unable to send some of labs ordered d/t lab does not have appropriate tube needed for send out.
[2024-06-22 12:38] LABS: Glucose - Point of Care 60 mg/dl (70-99)
[2024-06-22 12:45] LABS: Calcium 10.6 mg/dl (8.4-10.2); Phosphorus 2.5 mg/dl (2.5-4.5)
[2024-06-22 13:07] LABS: Glucose - Point of Care 122 mg/dl (70-99)
[2024-06-22] MEDS: SENSIPAR 90 MG PO (14:18)
[2024-06-22 14:24] LABS: Body Fluid Mononuclear 65.9 %; Body Fluid Polymorphonuclear 34.1 %; Body Fluid WBC 423 /CUMM
[2024-06-22 14:26] LABS: Body Fluid Glucose 78 mg/dl; Body Fluid LDH 79 U/L; Body Fluid Protein 2.3 g/dl
[2024-06-22 14:32] LABS: Body Fluid Second Tech HB
[2024-06-22 15:36] LABS: APTT 71.3 Sec (23.4-35.0)
[2024-06-22 16:36] LABS: Glucose - Point of Care 60 mg/dl (70-99)
--- NOTE | 2024-06-22 17:00 | PTCARENOTE ---
O2 weaned to 2L NC s/p thoracentesis.
BS 60 at 1630. 4oz apple juice given via PEG. Recheck 77. Pt on tube feeds but not yet at goal.
All other assessments unchanged.
[2024-06-22 17:10] LABS: Glucose - Point of Care 77 mg/dl (70-99)
[2024-06-22] MEDS: HEPARIN 25000 UNITS/250 ML IV (17:54)
[2024-06-22 18:51] LABS: Glucose - Point of Care 81 mg/dl (70-99)
--- NOTE | 2024-06-22 22:00 | PTCARENOTE ---
Resumed care of pt this evening. Received pt on heparin gtt infusing at 1150 units/hr per protocol via right peripheral IV site. Pt is A&Ox3, has left sided paralysis, and can make needs known.
[2024-06-22] MEDS: FOLVITE 2 MG TUBE (22:11)
[2024-06-22] MEDS: MELATONIN 5 MG TUBE (22:11)
[2024-06-22 23:54] LABS: Glucose - Point of Care 75 mg/dl (70-99)
[2024-06-23] VITALS (42 sets, daily range): BP systolic 131–232; BP diastolic 46–82; BMI 21.4
--- NOTE | 2024-06-23 | PTCARENOTE ---
Upon reassessment pt is resting comfortablly. PTT at 0000 is therapeutic.
[2024-06-23 00:11] LABS: APTT 77.6 Sec (23.4-35.0)
--- NOTE | 2024-06-23 04:30 | PTCARENOTE ---
Pt appears to be more lucid from what lucia WALLACE described. Pt is able to voice concerns and make needs known.
--- NOTE | 2024-06-23 06:00 | PTCARENOTE ---
2nd therapeutic PTT achieved.
[2024-06-23 06:06] LABS: APTT 97.1 Sec (23.4-35.0)
[2024-06-23 06:44] LABS: ALT (SGPT) 30 U/L (0-50); AST (SGOT) 29 U/L (17-59); Albumin 2.9 g/dl (3.5-5.0); Alkaline Phosphatase 145 U/L (38-126); Blood Urea Nitrogen 31 mg/dl (9-20); Carbon Dioxide 28 mmol/L (22-30); Chloride 98 mmol/L (98-107); Estimated Creatinine Clearance 26 ml/min; Glucose 97 mg/dl (70-99); Potassium 3.7 mmol/L (3.5-5.1); Sodium 136 mmol/L (135-145); Total Bilirubin 0.5 mg/dl (0.2-1.3); Total Protein 5.5 g/dl (6.3-8.2); eGFR 24.89
[2024-06-23 06:58] LABS: Hematocrit 20.6 % (39.0-52.0); Hemoglobin 6.9 g/dL (13.0-18.0); Mean Corp Hgb Conc. 33.5 g/dL (33.0-37.0); Mean Corpuscular Hgb 30.9 pg (27.0-31.0); Mean Corpuscular Volume 92.4 fL (80.0-94.0); Mean Platelet Volume 8.7 fL (7.4-10.4); Platelet Count 156 10^3/uL (130-400); Red Blood Cell Count 2.23 10^6/uL (4.70-6.10); Red Cell Dist. Width 15.3 % (11.5-14.5); White Blood Cell Count 5.9 10^3/uL (4.8-10.8)
--- NOTE | 2024-06-23 07:15 | W.PN.INTV ---
Today's Communication / Plan
Recommendations
follow hemoglobin
Transfuse as needed
Hemodialysis tomorrow
Mucus clearing devices
Aspiration precautions
Advance tube feeds
Antibiotics
Transfer to IMU-pulmonary will continue to follow briefly
Assessment
-
Patient is a 60-year-old gentleman with known history of carotid artery disease status post right CEA in the past, end-stage renal disease on hemodialysis, hypertension, hyperlipidemia, congestive heart failure with reduced ejection fraction of 40
to 45% as well as history of stroke in the past, who was brought from the long-term facility for worsening shortness of breath. Patient reportedly has been feeling short of breath over the last couple of weeks which has been progressively
getting worse. Reported diagnosis of low enzymes patient has been on Tamiflu. In view of worsening respiratory status he was transferred to the emergency room for further workup. Imaging in the emergency room showing showed near complete collapse
of the left lung with large pleural effusion as well as moderate pleural effusion on the right side. Patient also was noted to have significantly elevated troponin along with sinus bradycardia. Patient was started on broad-spectrum antibiotics,
aspirin as well as heparin drip for suspected NSTEMI and was admitted to hospitalist service.
In view of large effusion, interventional radiology and pulmonary service were requested for further input.
Mucous plug obstructing left bronchus
Acute on top of chronic heart failure with reduced EF
Bilateral pleural effusions
Elevated troponin
Sinus bradycardia
Hypotension
Hypercalcemia
End-stage renal disease on hemodialysis Saturday
Past Medical History: Reports CHF, GERD, HTN, Hypercholesterolemia, Hypothyroidism and Renal Failure (ESRD on HD ( MWF) )
Additional Past Medical History:
PEG tube dependent nutrition and for medication
Past Surgical History: Reports Other (PEG placement )
Other medical issues:
- NSTEMI. No chest pain. on ASA/Heparin. Cardiology service on case
- History of CVA with left hemiparesis, dysarthria and dysphagia. Patient is not n.p.o. at baseline and is on PEG tube feeding
- Sinus bradycardia with first degree heart block. Cardiology service in place. Coreg on hold.
- End-stage renal disease, on hemodialysis. Patient has a right upper chest permacath in place.
Plan
Respiratory status improved after bilateral thoracenteses
Supplemental oxygen as needed
Aspiration precautions
Mucus clearing devices if able
Nebulizers at as needed
Improved after bilateral thoracenteses-left - 06/21/2024-1450 mL, right 1100 mL-transudate
Monitor for fluid reaccumulation
Nephrology following-correspondence reviewed
Hemodialysis
Follow hemoglobin
Transfuse as needed
Monitor for acute blood loss-no obvious source for blood loss
Begin tube feeds
Aspiration precautions
Head of bed elevation
Monitor bradycardia arrhythmia
Dopamine discontinued
Pressors as needed
DVT prophylaxis
Nutrition-tube feeds with aspiration precautions
Bedside range of motion
If remains he medically stable without obvious bleeding then could be transferred out of ICU to telemetry-pulmonary will follow briefly
Critical care statement: A total of 40 minutes of critical care time was provided for this patient today. This includes management of unstable vital signs, evaluation of the patient at bedside, reviewing the patient's pertinent medical records
including radiographs, microbiology, laboratory evaluations, and discussion with primary team, consultants, pharmacy, nutrition, physical therapy, case management, charge nurse, critical care nursing, and respiratory therapy.
Data:
CXR 05/2024: 1. Near complete opacification of the left hemithorax which is likely secondary to a large left pleural effusion and airspace consolidation (compressive atelectasis or pneumonia).
2. Moderate ground-glass opacity in the infrahilar right lower lung which could be subsegmental atelectasis or pneumonia.
3. Right IJ hemodialysis catheter in place.
4. Chronic impacted fracture of the right humeral neck.
CT Chest 05/2024: 1. Complete endobronchial obstruction of the left mainstem bronchus containing layering secretions. SEVERE NEAR COMPLETE AIRSPACE CONSOLIDATION of the LEFT UPPER and LOWER LOBES (either atelectasis or pneumonia).
2. LARGE LEFT PLEURAL EFFUSION.
3. Moderate to large right pleural effusion.
4. Moderate to severe cardiomegaly.
5. Severe calcific atherosclerotic plaque in the coronary arteries.
6. Right IJ hemodialysis catheter in place.
7. Chronic impacted fracture of the right proximal humerus.
Subjective Dataa
Subjective Data
Date of Service:
Date of Service: June 23, 2024
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
Subjective:
much improved, alert, no complaints of shortness of breath, pain
Review of Systems
General: Other ( per HPI)
Objective Data
Data Reviewed
Vital Signs / I&O / Oxygen:
Vital Signs
Temp Pulse Resp BP Pulse Ox
99.9 F 48 23 149/58 98
06/23/24 03:36 06/23/24 06:11 06/23/24 06:11 06/23/24 06:00 06/23/24 06:11
Intake and Output
06/22/24 06/23/24 06/24/24
06:59 06:59 06:59
Intake Total 1127.7 / 1127.7
Output Total 0 / 0
Balance 1127.7 / 1127.7
SaO2 98
Nasal Cannula flow liters per 4
minute
Physical Exam
General: Respiratory Distress (n) and Comfortable
HEENT: Normocephalic and Anicteric
Cardiovascular: Regular Rhythm
Respiratory: Crackles, Rhonchi (n), Non-Labored Respirations, Accessory Resp Muscle Use (n) and Stridor
GI: Soft, Non Distended and Non Tender
Neurology: Alert and Lethargic
Skin: Warm, Good Color and Cyanosis (n)
Labs/Micro/Reports
Lab Data
06/23/24 05:35
06/23/24 05:35
Laboratory Results
06/22/24 06/22/24 06/22/24
07:43 14:58 23:45
APTT 111.4 H 71.3 H 77.6 H
06/23/24
05:35
APTT 97.1 H
Microbiology
06/20/24 20:17 Blood/Venous Blood Culture - Preliminary
No Growth in 48 hours- Final report to follow
06/20/24 20:17 Blood/Venous Blood Culture - Preliminary
No Growth in 48 hours- Final report to follow
06/22/24 13:54 Pleural Fluid Gram Stain - Preliminary
06/21/24 09:56 Nose MRSA Screen - Final
No Methicillin Resistant Staphylococcus aureus isolated.
06/21/24 12:51 Pleural Fluid Body Fluid Culture - Preliminary
No Growth After 18-24 Hours
06/21/24 12:51 Pleural Fluid Gram Stain - Preliminary
06/20/24 19:36 Nasal Swab Influenza Types A & B (JOVON) - Final
Negative for Influenza A & B, NAAT
Negative results must be combined with clinical observations
and patient history.
Nucleic Acid Amplification test (NAAT)performed on the
[employer] platform.
[2024-06-23] MEDS: SODIUM CHLORIDE 3% FOR INHALATION 1 VIAL INH ×3 (07:41→21:17)
[2024-06-23] MEDS: VENTOLIN NEBULES 2.5 MG INH ×3 (07:41→21:17)
[2024-06-23 07:58] LABS: Glucose - Point of Care 95 mg/dl (70-99)
--- NOTE | 2024-06-23 08:13 | PTCARENOTE ---
Received pt with eyes open.Oriented x 3.Speech slow but appropriate.Left hemiparesis noted.Pt does assist with repositioning with right upper and lower extremity.SB with 1st degree AVB noted.Right HD cath intact.Heparin infusing as ordered.O2 4l
NC.POX 96%+ tachypnea,orthopnea and LUCAS noted.Frequent wet cough.Occasionally expectorating white thick secretions.Peg tube intact with tube feeds at goal rate.Incontinent of brown stool,heme -.Anuric.Skin integrity as documented.Plan of care
discussed with pt.Pt fro transfer to IMU as per MD order.
--- NOTE | 2024-06-23 08:13 | W.PN.CD ---
Today's Communication / Plan
-
Continue medical management of NSTEMI with heparin, aspirin, and statin.
Beta-dany held due to bradycardia. No PPM for now.
If he has ongoing transfusion requirements, we will stop heparin and medically manage NSTEMI
Plan for LHC once respiratory status has improved.
Volume management with HD and IV Bumex.
Impression / Plan
-
A/P: 68-year-old male with past medical history of carotid artery disease status post right CEA at [facility], end-stage renal disease, hypertension, dyslipidemia, heart failure reduced ejection fraction EF reportedly 40 to
45%, and CVA who is here for shortness of breath. Cardiology is consulted for significantly elevated troponin.
NSTEMI
- Diagnosis is a threat to life.
- Troponin peaked at 10.7 and is now downtrending. He has no chest pain. TTE 06/22 with normal EF and no RWMAs
- Continue medical management with IV heparin, ASA and statin. BB on hold due to bradycardia.
- If he has ongoing anemia requiring transfusion, we can stop heparin (it has been >48h) and just do medical management
- For now, we will plan for LHC this admission once his respiratory status has improved
Acute hypoxic respiratory failure
- Likely multifactorial in the setting of pleural effusion, left mainstem bronchial secretions, aspiration, and acute on chronic HF. Status post thoracentesis.
- Pulmonary following. Currently holding antibiotics and following up thoracentesis studies
- Volume management with HD and IV Bumex
- NPO with tube feeds and aspiration precuations
Sinus bradycardia
- Previously was requiring IV dopamine. Suspect due to electrolyte derangements and hypoglycemia.
- Continue to monitor on telemetry
- No indication for PPM at this time
Heart failure with recovered ejection fraction
- TTE 06/22/2024: LVEF 50-55%, normal RWM, reduced RV function, aortic sclerosis, trace TR
- Volume management with HD and Bumex
- GDMT limited by ESRD
Anemia, acute on chronic
- Likely due to chronic illness with ESRD and now on heparin
- As above, continue heparin for now. If he continues to require transfusions, we will stop heparin and medically manage his NSTEMI
Carotid artery disease s/p R CEA
- cont statin and aspirin
ESRD
- nephro following
HTN
- would hold anti-HTN for now
Hyponatremia
Subjective: Says breathing feels 'dry.' He denies chest pain. Telemetry with sinus bradycardia.
Physical Exam
Vital Signs/Labs
Vital Signs
Temp Pulse Resp BP Pulse Ox
99.9 F 49 20 141/64 92
06/23/24 03:36 06/23/24 07:43 06/23/24 07:43 06/23/24 07:00 06/23/24 07:43
06/22/24 06/23/24 06/24/24
06:59 06:59 06:59
Actual Weight 161 lb 6.054 oz 153 lb 3.54 oz
06/23/24 05:35
06/23/24 05:35
APTT 97.1 Sec (23.4-35.0) H 06/23/24 05:35
TSH 4.03 uIU/ml (0.47-4.68) 06/21/24 02:39
06/20/24
18:13
Bjt-K-Gwookodiudv Pept > 10342
LAB Results
06/20/24 06/21/24 06/21/24
18:13 02:39 09:56
Troponin I 9.830 H* 10.400 H* 10.700 H*
06/21/24 06/22/24 06/22/24
17:45 00:35 04:37
Troponin I 9.480 H* 9.060 H* 9.130 H*
06/22/24
12:03
Troponin I 8.010 H*
Physical Exam
Constitutional: No acute distress and Comfortable
Cardiovascular: Rhythm & rate is regular, Pedal edema present (Mild, L>R), S1S2 is normal and Murmur/rub/gallop absent
Respiratory: Other (Lots of coughing, crackles and rhonchi bilaterally)
Neuro/Psych: AO x 3
Data Reviewed
-
Date of Service: June 23, 2024
Medical Decision Making: Reviewed Test Results, Independent Historian Assessment, Test Interpretation and Review of Case with other Provider
EKG: Tracing Personally Visualized and interpreted
Echo: Report Reviewed by me
X-Ray/CT/US/MRI/NUC/PET: Report Reviewed by me
Labs: Labs Reviewed by me
[2024-06-23] MEDS: ASPIR LOW (ENTERIC COATED) 81 MG PO (08:41)
[2024-06-23] MEDS: PREVACID 15 MG TUBE (08:41)
[2024-06-23] MEDS: WELLBUTRIN REGULAR RELEASE 150 MG PO (08:41)
[2024-06-23] MEDS: BUMEX 1 MG IV (08:42)
--- NOTE | 2024-06-23 09:49 | W.PN.HOSP.TC ---
Addendum entered and electronically signed by Benedict Villarreal MD 06/24/24 07:58:
Add to diagnosis list:
Stage 1 pressure injury sacrum, POA
Original Note:
Today's Communication/Plan
-
see note
Assessment / Plan
Assessment / Plan
CT chest
1. Complete endobronchial obstruction of the left mainstem bronchus containing layering secretions. SEVERE NEAR COMPLETE AIRSPACE CONSOLIDATION of the LEFT UPPER and LOWER LOBES (either atelectasis or pneumonia).
2. LARGE LEFT PLEURAL EFFUSION.
3. Moderate to large right pleural effusion.
4. Moderate to severe cardiomegaly.
5. Severe calcific atherosclerotic plaque in the coronary arteries.
6. Right IJ hemodialysis catheter in place.
7. Chronic impacted fracture of the right proximal humerus.

1. Left mainstem bronchus obstruction from secretions
Bilateral pleural effusion
Compression atelectasis
- Patient with history of CVA/PEG tube and on tube feeding
- Patient was on cefepime, has been discontinued on pulmonology recommendation as there is no supporting evidence of ongoing pneumonia
- Patient underwent left-sided thoracentesis of 1.45 L of transudative fluid. Fluid analysis reports reviewed. Fluid culture has been negative for any growth
- Patient underwent right-sided thoracentesis of 1.1 L of transudative fluid.
- Patient was transferred to ICU yesterday for increased oxygen requirement/encephalopathy which is better now.
- Repeat repeat chest x-ray showing nicely expanded lung parenchyma.
- Continues to have significant secretion, on 3% saline nebulizer therapy. CPT being avoided with potential problem with PEG tube.
2. Acute hypoxic respiratory failure - Improved
- Secondary to above reason
- improved at this point, continue oxygen weaning as tolerated .
3. Elevated troponin
Rule out NSTEMI
- Cardiology is following
-Troponin max of 10.7
- On asa/heparin drip
-TTE showing EF 50-55%
4. Acute on chronic heart failure with reduced ejection fraction
- proBNP>[id number]
- Echo for 06/22/24
- volume management by HD
- Patient makes some urine and currently on IV Bumex as well
- Hold Carvedilol due to severe bradycardia
5. Sinus bradycardia with first-degree block
- Patient heart rate was in 30s and patient was encephalopathic on morning of 06/22. started dopamine empirically despite hypoxia/hypoglycemia was likely reason for encephalopathy.
- HR in 40-50 range today, can discontinue dopamine drip.
- Cardiology considering PPM
6. Hypercalcemia
- Difficult to explain, max of 13.7, suspecting tertiary hyperparathyroidism
- Patient on Cinacalcet 120mg MOWE before admission, adjusted to 90mg MWF by nephro
- Further test vitd/pth/spep sent by nephro - f/u results
7. History of CVA with left hemiparesis, dysarthria and dysphagia
PEG TF dependent
- NPO at baseline
- TF resumed back yesterday
8. ESRD on HD ( MWF )
Right IJ Hemodialysis Catheter
Anemia of Chronic Disease
- had full HD on 06/19/24
- Continue Renvela for hyperphosphatemia
- PAPITO to be provided for anemia
- Hemoglobin had a quick decline to 6.9 today from 7.5 yesterday. As patient evaluated troponin/questionable NSTEMI will provide 1 unit of blood transfusion. Blood consent obtained from daughter over the phone
- No reported luminal blood loss. Check stool for occult blood
- Discussed with cardiology and continue to plan heparin drip for now
- Repeat CBC check ordered
Severe calcific atherosclerotic plaque in the coronary arteries on CT Chest
Right chronically impacted humeral neck fracture -imaging finding on CT chest, needs to be verified with previous records
Hyponatremia
Recent Flu
Benign Hypertension
Hyperlipidemia
Carotid artery disease s/p R CEA
BPH
Depression
DVT Prophylaxis: Heparin Drip.
Code Status: Limited DNR (See Update Note from Filiberto Stanford on 06/21/24)
GREETING CARD WRITER: Daughter, Tawnya Kauffman [phone]
Daughter Tawnya updated on 06/22 and 06/23
Total time spent : 55 mins
Case discussed with senior designer/art director
Downgrade to IMU level
Anticipated Discharge: > 48 hours
Subjective/Interval History
-
Date of Service: June 23, 2024
Patient subjectively feeling better
Continues to have significant phlegm production
Oxygen requirement is came down
No reported melena/blood in stool
Remains afebrile
Objective Data
-
Labs:
Laboratory Results
06/22/24 06/23/24 06/23/24
23:45 05:35 16:00
WBC 5.9 Pending
Hgb 6.9 L* Pending
Hct 20.6 L* Pending
Plt Count 156 Pending
APTT 77.6 H 97.1 H
Sodium 136
Potassium 3.7
Chloride 98
Carbon Dioxide 28
BUN 31 H
Creatinine 2.7 H
Glucose 97
Calcium 12.0 H
Total Bilirubin 0.5
AST 29
ALT 30
Alkaline Phosphatase 145 H
06/23/24
18:00
WBC
Hgb Pending
Hct
Plt Count
APTT
Sodium
Potassium
Chloride
Carbon Dioxide
BUN
Creatinine
Glucose
Calcium
Total Bilirubin
AST
ALT
Alkaline Phosphatase
Vital Signs:
Vital Signs
Temp Pulse Resp BP Pulse Ox
97.2 F 49 20 141/64 92
06/23/24 08:19 06/23/24 07:43 06/23/24 07:43 06/23/24 07:00 06/23/24 07:43
I&O
06/22/24 06/23/24 06/24/24
06:59 06:59 06:59
Intake Total 1127.7 / 1127.7
Output Total 0 / 0
Balance 1127.7 / 1127.7
Review of Systems
-
Respiratory: Reports Cough; Denies Trouble Breathing
Cardiac: Reports No Symptoms
Abdomen/GI: Reports No Symptoms
Physical Exam
-
General: No Apparent Distress and Comfortable
HEENT: Oxygen (NRB 88%)
Respiratory: Rhonchi
Cardiac: Regular Rhythm and S1/S2; Negative Murmur or Rub
Musculoskeletal: No Edema
Neuro: Negative Awake or Alert
Psych: Calm
--- NOTE | 2024-06-23 10:59 | W.PN.NEPH.PH ---
Today's Communication / Plan
-
HD tomorrow
Assessment/Plan
-
Impression:
ESRD MWF
Hypoxia/left lung atelectasis versus pneumonia
Large left pleural effusion s/p thoracentesis 06/21
CHF
Anemia
Hypertension hx
Hyponatremia
Secondary hyperparathyroidism
Hyperphosphatemia
PEG
Non-ST elevation WI
History of stroke with subsequent left hemiparesis dysarthria and dysphagia
Tunneled right HD IJ catheter
Chronic impacted right proximal humerus fracture
hypercalcemia
Plan:
HD tomorrow
sensipar to 90mg MWF, unsure why it was only given 2x/week at dialysis
Discontinue Bumex, outpatient dosing was also atypical with dosing on dialysis days and a higher dose on Sundays
Await hypercalcemic workup. Will give pamidronate today
Transfuse packed red blood cells
critical care time 40 minutes
-
-
Date of Service: June 23, 2024
CC / HPI / ROS
-
Chief Complaint:
ESRD
History of Present Illness:
BP stable
remains bradycardic in the 40s
critically ill in ICU
Calcium remains elevated 12.0
BS low, requiring D50 amps
troponin slowly decreasing 8.0
hgb low 6.9
Review of Systems:
Awake
No chest pain, no fever
Hard of hearing
Labs
-
Labs:
Sodium 136 mmol/L (135-145) 06/23/24 05:35
Potassium 3.7 mmol/L (3.5-5.1) 06/23/24 05:35
Chloride 98 mmol/L (98-107) 06/23/24 05:35
Carbon Dioxide 28 mmol/L (22-30) 06/23/24 05:35
BUN 31 mg/dl (9-20) H 06/23/24 05:35
Creatinine 2.7 mg/dL (0.7-1.3) H 06/23/24 05:35
eGFR 24.89 06/23/24 05:35
Glucose 97 mg/dl (70-99) 06/23/24 05:35
Calcium 12.0 mg/dl (8.4-10.2) H 06/23/24 05:35
Phosphorus 2.5 mg/dl (2.5-4.5) 06/22/24 12:03
Fqa-T-Hulptblnabb Pept > 26273 pg/ml 06/20/24 18:13
Albumin 2.9 g/dl (3.5-5.0) L 06/23/24 05:35
Physical Exam
-
Vital Signs:
Vital Signs
Temp Pulse Resp BP Pulse Ox
97.2 F 49 20 141/64 92
06/23/24 08:19 06/23/24 07:43 06/23/24 07:43 06/23/24 07:00 06/23/24 07:43
Cardiovascular:: Regular rate and rhythm (Bradycardic)
Respiratory:: Bilateral: Coarse
Lung Excursion:: Normal
Abdomen:: Nontender and Soft
Bowel Sounds:: Normal
Extremity Edema:: None: Bilateral:
--- NOTE | 2024-06-23 12:00 | PTCARENOTE ---
Pt assessed.No change in assessment noted.Right Midline IV placed by VAT RN for additional IV access.
[2024-06-23 12:17] LABS: Glucose - Point of Care 114 mg/dl (70-99)
--- NOTE | 2024-06-23 13:49 | CM ---
Patient seen at bedside in ICU. Patient daughter indicated that she would call CM back around 4 to discuss options for rehab/hd. Christina does not have contract with [facility] at this time. CM will continue to follow for discharge Planning needs.
Plan; SNF
[2024-06-23] MEDS: AREDIA 260 MG IV (13:53)
--- NOTE | 2024-06-23 14:15 | WOUNDNOTE ---
PEG TUBE SITE
--- NOTE | 2024-06-23 14:15 | WOUNDNOTE ---
[facility] RN NOTE: Reviewed chart and met with patient. Patient noted on HAP report with stage 1 PI. At time of assessment sacrum was covered with 5 layer silicone sacral foam and patient was positioned off of sacrum. Bony prominence noted on
sacral/coccyx region but all skin was blanchable and intact. Consult received for PEG tube issue. Per Physician, family was concerned that there was a rash around PEG. RODRIGO Briseno recently cleaned around PEG and removed some dried drainage. No drainage,
rash or other irritation noted at time of assessment. TT with Dr. Villarreal and plan is to add Peg tube care to discharge instructions. Will sign off.
--- NOTE | 2024-06-23 14:36 | CM ---
Addendum entered by Elba Blankenship 06/23/24 15:10:
referral sent to [facility]- connected to [facility] [place], [facility], and [place] [facility], [facility]. Call placed to [facility] about [facility] facility.
Original Note:
Patient ex and patient daughter on phone with CM. Patient was at [facility] then admitted to [facility]. At some point he was again in the hospital and transferred to [facility] in an effort to come closer to
the daughter's home in [place], there patient had HD. Patient daughter indicated that patient community center previously was in a [facility] but that he was unable to be transferred from a SNF to a HD center and that is why they chose
[facility]. Patient daughter requested the following referrals; [facility] for rehab in [place], the [facility] [place] [facility] in [place]. and [facility], Radha at [facility] in [place] and
[facility] in [place]. CM will place referrals in all script. Per Aaron Villanueva the local centers do have contracts with / [employer]. Family also is looking into changing to traditional medicare. CM will continue to follow for
discharge planning needs.
Plan; SNF; with HD.
--- NOTE | 2024-06-23 15:03 | PN.CDI ---
CDI
- -
CDI:
Physician Documentation Request
Admit Date: 06/20/24 20:24
Dear Doctor Phil,
Please review the following and provide your response in the progress notes.
Clinical Indicators:
Selected Entries
06/22/24
10:24
Pressure injury stage [Sacrum] Stage 1
06/23/24 14:15 - Wound Note
#...Patient noted on HAP report with stage 1 PI.
#...At time of assessment sacrum was covered with 5 layer silicone sacral foam
#...and patient was positioned off of sacrum.
#...Bony prominence noted on sacral/coccyx region but all skin was blanchable and intact.
Physician documentation of the type and location of wounds is required for compliant documentation. Based on the above clinical findings and your assessment, please provide the following in your progress note:
Stage 1 pressure injury sacrum, POA
Stage 1 pressure injury sacrum evolved during admission(admitted 06/20)
Other (please specify)
Location of the ulcer/wound, including laterality.
Type (etiology) of ulcer/wound:
- Pressure (decubitus) ulcer
- Other
- Unable to determine
For a pressure ulcer, please also include the stage* of the ulcer:
- Stage 1 - Skin intact, non-blanchable redness
- Stage 2 - Partial thickness loss of dermis, includes intact or open blister
- Stage 3 - Full thickness tissue not including bone, tendon or muscle
- Stage 4 - Full thickness tissue loss, including exposed bone, tendon or muscle
- Unstageable - Full thickness loss in which the base of the ulcer is covered by slough (yellow, norris, quesada, green or brown) and/or eschar (norris, brown or black) in the wound bed.
Use of terms such as suspected, likely, concern for, or probable (associated with a specific diagnosis that is being evaluated, monitored, or treated as if it exists) are acceptable and can be coded in the inpatient setting, when documented at the
time of discharge.
Thank you,
Isabella Cochran RN BSN CCDS
CDI Specialist
Please contact via tiger text
Please use your independent medical judgment in providing your response.
*Source: National Pressure Ulcer Advisory Panel (NPUAP)
--- NOTE | 2024-06-23 16:06 | PTCARENOTE ---
Pt assessed.No change in assessment noted.PRBC transfusing as ordered.
[2024-06-23] MEDS: HEPARIN 25000 UNITS/250 ML IV (17:13)
[2024-06-23] MEDS: CRESTOR 20 MG TUBE (17:15)
--- NOTE | 2024-06-23 17:31 | W.PN.UPDATE ---
Update Note
Progress Note Update
Evaluate the patient as he was short of breath after receiving blood
Patient has a coarse breath sounds bilaterally
Chest x-ray reviewed by me shows bilateral pulmonary edema
Patient does not make any urine
Continue oxygen
1 mg Morphine
decrease tube feeds to 20 ml and flush to 10 ml
Nephrology alerted for earlier slot for HD tomorrow
[2024-06-23 17:47] LABS: Glucose - Point of Care 118 mg/dl (70-99)
[2024-06-23] MEDS: MORPHINE SULFATE 1 MG IV (18:16)
[2024-06-23] MEDS: D10W 1000 IV (19:00)
[2024-06-23] MEDS: D10W 500 IV (19:10)
--- NOTE | 2024-06-23 19:14 | PTCARENOTE ---
1700-Desaturation to 82% noted.Increased tachypnea.Increase in crackles throughout noted.Frequent wet cough noted.Pt continues to expectorate moderate amount thick white secretions.Xi Villarreal and Autumn made aware.Orders followed.Dr Galvan made
aware.Orders followed.
[2024-06-23 19:54] LABS: Hemoglobin 8.4 g/dL (13.0-18.0); Mean Corp Hgb Conc. 33.6 g/dL (33.0-37.0); Mean Corpuscular Hgb 31.5 pg (27.0-31.0); Mean Corpuscular Volume 93.6 fL (80.0-94.0); Mean Platelet Volume 8.6 fL (7.4-10.4); Platelet Count 160 10^3/uL (130-400); Red Blood Cell Count 2.67 10^6/uL (4.70-6.10); Red Cell Dist. Width 15.6 % (11.5-14.5); White Blood Cell Count 7.4 10^3/uL (4.8-10.8)
--- NOTE | 2024-06-23 20:08 | W.PN.UPDATE ---
Update Note
Progress Note Update
RTSP. became more hypoxic and tachypneic following PRBC transfusion. repeat CXR with slight increase in pulmonary edema pattern. No fever, no leukocytosis. Remains on heparin gtt.
no LE edema, but lung exam reveals rales diffusely and patient is clearly in respiratory distress with tachypnea 42 bpm. Pt is DNI. Overall I/O do not appear to be excessive.
stop TF
use D10 at 20ml/hr for hypoglycemia to limit volume. if hypoglycemia, use Dextrose amps
will UF tonight for 2L
HD tomorrow morning for more volume if needed.
CXR in am
will try bumex 4mg IV to check response
critical care time 40 minutes
--- NOTE | 2024-06-23 20:12 | PTCARENOTE ---
pt receiving HD tx, continues to have wet voice quality, desat to mid-high 60s on 15LMF NC, NRB added. RT and STrivinoNP paged to bedside.
--- NOTE | 2024-06-23 20:13 | W.PN.NEPH.HD ---
Assessment
-
Seen on HD. UF treatment. hypertense, likely from respiratory distress. 15L NC with 91%SO2. HR 53. access ok
Progress Note - Hemodialysis
-
Date of Service: June 23, 2024
Duration: 2 hours
Opti-Dialyzer: 160
Ultrafiltration: Other (2kg)
Blood Flow: 250
Heparin: no
EPO: no
--- NOTE | 2024-06-23 20:30 | PTCARENOTE ---
pt continued to desat, not recovering, briefly switched to HFNC by RT, no improvement, pt decreased responsiveness then briefly lost pulse- see code 9 sheet for event.
--- NOTE | 2024-06-23 20:44 | W.PN.ANESINT ---
Anesthesia Intubation Note
- Intubation Note
Intubation Note:
Diagnosis: Cardiac arrest
Blade: videoscope 4
Tube Size: 8
Depth: 22 cm
Side Taped: right
Drugs Used: None
Grade View: 1
EtCO2 Present: yes
Atraumatic: yes
Attempts: 1
Insertion Start and Stop Time: start: 8:40
stop: 8:42
SaO2 Pre: N/A
SaO2 Post: N/A
Glidescope Used: yes
Other Airway Adjustments: none
Pre-Oxygenated: no
Portable Chest X-Ray:
RSI: N/A
Suctioned: no
Bilateral Breath Sounds Confirmed: yes
Vent Settings:
Settings per ___Attending Physician
--- NOTE | 2024-06-23 20:51 | W.PN.UPDATE ---
Update Note
Progress Note Update
I had tried calling daughter from my office, but went to voicemail and it was full. At the same time pt had become more hypoxic and more bradycardic and went into asystole. Code was called. SEATING CAPTAIN in ICU was talking to patient's daughter at that time.
They were reportedly aware of the patient's own decided code status DNR, but reversed the decision to make the patient full code. Pt received 1mg epinephrine and 3 minutes of CPR with return of rhythm and pulse. He was intubated with improvement of
saturations. Dialysis was discontinued due to the code.
Currently patient is still hypertense. BP may improve with sedation. If he becomes bradycardic again may need dopamine but will need to watch BP. No further dialysis tonight given overall instability.
prognosis is poor.
critical care time 30 minutes
[2024-06-23] MEDS: SUBLIMAZE 50 MCG IV ×4 (21:00→22:48)
[2024-06-23] MEDS: SUBLIMAZE 100 IV (21:01)
[2024-06-23 21:12] LABS: Glucose - Point of Care 136 mg/dl (70-99)
[2024-06-23] MEDS: COZAAR TUBE (21:47)
[2024-06-23] MEDS: MELATONIN TUBE (21:47)
[2024-06-23] MEDS: WELLBUTRIN REGULAR RELEASE PO (21:47)
[2024-06-23] MEDS: FOLVITE TUBE (21:47)
--- NOTE | 2024-06-23 21:55 | W.PN.UPDATE ---
Update Note
Progress Note Update
~ 20:10 TT received from RN that patient was severely hypoxic, O2 sat 60's% on 15L Mid flow w/NRB added. Patient receiving HD.
Respiratory notified, attempted to change to hi flow, patient unable to maintain sat's, down to 40's. Called patient's daughter, Tawnya Kauffman, to speak with her about severity of patient's current condition.
While speaking with patient's daughter, at approx 20:30, patient went asystole for approx 3 minutes, CRP was initiated and ACLS protocols were followed. Bag/mast ventilation provided. ICU FUSION ANALYST also talked with patient's daughter.
Decision was made by patient's daughter to change code status from limited DNR (Patient requested to get CRP, Pressors, Defibrillation, No intubation/Vent) to Full code. Patient was intubated, Oxygen sats improved. Patient transferred to ICU.
--- NOTE | 2024-06-23 22:03 | W.PN.UPDATE ---
Update Note
Progress Note Update
2029 Call to bedside for patient being in respiratory distress while receiving HD treatment. Respiratory therapist trialing high flow nasal cannula, (O2 sats in the 60s). Patient agonal breathing, not ventilating appropriated. Instructed respiratory
therapist to bag patient. Patient currently is a do not intubate. Family called to discuss tamara arrest situation. Instructed family that patient needs to be intubated or let him pass. �Daughter Tawnya struggling with not�intubating him despite his
wish of not to be intubated. �During phone call, patient went into asystole. Daughter decided to change code status to full code. � 2033 ACLS provided, patient received one round of CPR and one dose of epi provided. Regain ROSC within 3 minutes.
�Family updated and all question answered.�
[2024-06-23 23:46] LABS: B.E. 2.9 mmol/L; HCO3 28.4 mmol/L (21-28); O2 Saturation % 98.3 % (94-98); PCO2 48 mmHg (35-48); PO2 82 mmHg (83-108); Potassium 3.9 mMOL/L (3.5-5.1); Sodium 131 mMOL/L (136-145); pH 7.38 (7.35-7.45)
[2024-06-23 23:50] LABS: Glucose - Point of Care 88 mg/dl (70-99)
[2024-06-23 23:51] LABS: Ionized Calcium 1.91 mMOL/L (1.15-1.33)
[2024-06-24] VITALS (11 sets, daily range): BP systolic 125–165; BP diastolic 5–58; BMI 21.4
--- NOTE | 2024-06-24 00:13 | W.PN.UPDATE ---
Update Note
Progress Note Update
Procedure Note: Arterial Line�
� Left Wrist Arrow 20 (04/28)�
Diagnosis:��Acute respiratory failure
IV Line Comments: Uneventful Procedure�
Randell's test completed pre-procedure: Yes�
A-Line Comments: Sterile technique as per standard protocol, Ultrasound guided insertion�
Functioning A-line in situ: Yes�
A-line Insertion Start Time:��2245
A-line in at:��2300
[2024-06-24] MEDS: SUBLIMAZE 50 MCG IV (03:48)
--- NOTE | 2024-06-24 04:00 | PTCARENOTE ---
pt opens eyes and makes eye contact, agitated with care, no commands at this time. tolerating ventilator. turned, repositioned. no further changes.
[2024-06-24 04:10] LABS: Hematocrit 22.5 % (39.0-52.0); Hemoglobin 7.5 g/dL (13.0-18.0); Mean Corp Hgb Conc. 33.3 g/dL (33.0-37.0); Mean Corpuscular Hgb 30.6 pg (27.0-31.0); Mean Corpuscular Volume 91.8 fL (80.0-94.0); Mean Platelet Volume 8.8 fL (7.4-10.4); Platelet Count 152 10^3/uL (130-400); Red Blood Cell Count 2.45 10^6/uL (4.70-6.10); Red Cell Dist. Width 15.2 % (11.5-14.5)
[2024-06-24 04:58] LABS: ALT (SGPT) 53 U/L (0-50); AST (SGOT) 62 U/L (17-59); Albumin 2.8 g/dl (3.5-5.0); Alkaline Phosphatase 154 U/L (38-126); Blood Urea Nitrogen 45 mg/dl (9-20); Calcium 13.1 mg/dl (8.4-10.2); Carbon Dioxide 26 mmol/L (22-30); Chloride 97 mmol/L (98-107); Estimated Creatinine Clearance 20 ml/min; Glucose 87 mg/dl (70-99); Sodium 135 mmol/L (135-145); Total Bilirubin 0.6 mg/dl (0.2-1.3); Total Protein 5.4 g/dl (6.3-8.2); eGFR 18.23
[2024-06-24] MEDS: SUBLIMAZE 100 IV ×2 (06:36→17:48)
--- NOTE | 2024-06-24 07:19 | W.PN.INTV ---
Today's Communication / Plan
Recommendations
ventilator settings reviewed
Ventilator adjusted
Follow chest x-ray
Empiric antibiotics
Check cultures
Hemodialysis
Pressors as needed
CT chest and abdomen
Assessment
-
Patient is a 60-year-old gentleman with known history of carotid artery disease status post right CEA in the past, end-stage renal disease on hemodialysis, hypertension, hyperlipidemia, congestive heart failure with reduced ejection fraction of 40
to 45% as well as history of stroke in the past, who was brought from the longterm facility for worsening shortness of breath. Patient reportedly has been feeling short of breath over the last couple of weeks which has been progressively
getting worse. Reported diagnosis of low enzymes patient has been on Tamiflu. In view of worsening respiratory status he was transferred to the emergency room for further workup. Imaging in the emergency room showing showed near complete collapse
of the left lung with large pleural effusion as well as moderate pleural effusion on the right side. Patient also was noted to have significantly elevated troponin along with sinus bradycardia. Patient was started on broad-spectrum antibiotics,
aspirin as well as heparin drip for suspected NSTEMI and was admitted to hospitalist service.
In view of large effusion, interventional radiology and pulmonary service were requested for further input.
Mucous plug obstructing left bronchus
Acute on top of chronic heart failure with reduced EF
Cardiopulmonary arrest-asystole requiring CPR/epinephrine 06/23/24-family reversed DNR status
Intubated 06/23/24
extubated
Bilateral pleural effusions
Elevated troponin
Sinus bradycardia
Hypotension
Hypercalcemia
End-stage renal disease on hemodialysis Saturday
Past Medical History: Reports CHF, GERD, HTN, Hypercholesterolemia, Hypothyroidism and Renal Failure (ESRD on HD ( MWF) )
Additional Past Medical History:
PEG tube dependent nutrition and for medication
Past Surgical History: Reports Other (PEG placement )
Other medical issues:
- NSTEMI. No chest pain. on ASA/Heparin. Cardiology service on case
- History of CVA with left hemiparesis, dysarthria and dysphagia. Patient is not n.p.o. at baseline and is on PEG tube feeding
- Sinus bradycardia with first degree heart block. Cardiology service in place. Coreg on hold.
- End-stage renal disease, on hemodialysis. Patient has a right upper chest permacath in place.
Plan
Events noted-primarily respiratory-suspect mucous plug-asystole requiring intubation-significant secretions status post epinephrine/CPR
Ventilator settings reviewed
Reviewed ABG--7.38
Ventilator adjusted
Spontaneous breathing trial once stabilized
Bronchoscopy if additional mucous plugs
Chest x-ray/-ET tube 5 cm above serina, nasogastric tube in place, slight improved aeration mid lung zones bilaterally, left lower lobe opacification persistent infiltrate right infrahilar region
Aspiration precautions
Mucus clearing devices if able
Nebulizers at as needed
Improved after bilateral thoracenteses-left - 06/21/2024-1450 mL, right 1100 mL-transudate
Monitor for fluid reaccumulation
Nephrology following-correspondence reviewed
Hemodialysis per nephrology
CT chest and abdomen-rule out underlying malignancy
If endobronchial obstruction then will consider bedside bronchoscopy
Follow hemoglobin-now 7.5
Transfuse as needed
Monitor for acute blood loss-no obvious source for blood loss
Check sputum culture
Leukocytosis-WBCs now 19
Empiric antibiotics
Tube feeds on hold-slowly resume-consider trickle feeding
Aspiration precautions
Head of bed elevation
Monitor bradycardia arrhythmia
Dopamine discontinued
Pressors as needed
DVT prophylaxis-on heparin
GI prophylaxis-on Prevacid
Nutrition-tube feeds with aspiration precautions
Bedside range of motion
Critical care statement: A total of 45 minutes of critical care time was provided for this patient today. This includes management of unstable vital signs, evaluation of the patient at bedside, reviewing the patient's pertinent medical records
including radiographs, management of ventilator, pressor management, microbiology, laboratory evaluations, and discussion with primary team, consultants, pharmacy, nutrition, physical therapy, case management, charge nurse, critical care nursing,
and respiratory therapy.
Data:
CXR 05/2024: 1. Near complete opacification of the left hemithorax which is likely secondary to a large left pleural effusion and airspace consolidation (compressive atelectasis or pneumonia).
2. Moderate ground-glass opacity in the infrahilar right lower lung which could be subsegmental atelectasis or pneumonia.
3. Right IJ hemodialysis catheter in place.
4. Chronic impacted fracture of the right humeral neck.
CT Chest 05/2024: 1. Complete endobronchial obstruction of the left mainstem bronchus containing layering secretions. SEVERE NEAR COMPLETE AIRSPACE CONSOLIDATION of the LEFT UPPER and LOWER LOBES (either atelectasis or pneumonia).
2. LARGE LEFT PLEURAL EFFUSION.
3. Moderate to large right pleural effusion.
4. Moderate to severe cardiomegaly.
5. Severe calcific atherosclerotic plaque in the coronary arteries.
6. Right IJ hemodialysis catheter in place.
7. Chronic impacted fracture of the right proximal humerus.
Subjective Dataa
Subjective Data
Date of Service:
Date of Service: June 24, 2024
Chief Complaint: Environmental Health And Safety Leader Follow Up and Pulmonary Follow Up
Subjective:
events noted, now intubated, sedated, review of systems unobtainable
Review of Systems
General: Other ( per HPI)
Objective Data
Data Reviewed
Vital Signs / I&O / Oxygen:
Vital Signs
Temp Pulse Resp BP Pulse Ox
97.8 F 46 13 156/54 100
06/24/24 03:56 06/24/24 06:30 06/24/24 06:30 06/23/24 22:30 06/24/24 06:30
Intake and Output
06/23/24 06/24/24 06/25/24
06:59 06:59 06:59
Intake Total 1127.7 / 1204.2 1933.0 / 1932.0
Output Total 0 / 0
Balance 1127.7 / 1204.2 1932.0 / 1932.0
SaO2 [A/C] 98
SaO2 100
Nasal Cannula flow liters per 15
minute
Physical Exam
General: Respiratory Distress (n) and Comfortable
HEENT: Normocephalic, Anicteric and Moist Mucous Membranes
Cardiovascular: Regular Rhythm ( bradycardia)
Respiratory: Crackles, Rhonchi (n), Non-Labored Respirations, Accessory Resp Muscle Use (n), Stridor and ET Tube
GI: Soft, Non Distended and Non Tender
Neurology: Lethargic ( sedated on the ventilator)
Skin: Warm, Good Color, Cyanosis (n) and Jaundice (n)
Labs/Micro/Reports
Lab Data
06/24/24 03:32
06/24/24 03:32
Laboratory Results
06/23/24 06/24/24
23:38 03:32
APTT 74.0 H
pH 7.38
pCO2 48
pO2 82 L
HCO3 28.4 H
O2 Delivery Level
Microbiology
06/20/24 20:17 Blood/Venous Blood Culture - Preliminary
No Growth in 72 hours- Final report to follow
06/20/24 20:17 Blood/Venous Blood Culture - Preliminary
No Growth in 72 hours- Final report to follow
06/21/24 12:51 Pleural Fluid Body Fluid Culture - Preliminary
No Growth After 48 Hours
06/21/24 12:51 Pleural Fluid Gram Stain - Preliminary
06/22/24 13:54 Pleural Fluid Body Fluid Culture - Preliminary
No Growth After 18-24 Hours
06/22/24 13:54 Pleural Fluid Gram Stain - Preliminary
06/21/24 09:56 Nose MRSA Screen - Final
No Methicillin Resistant Staphylococcus aureus isolated.
[2024-06-24] MEDS: VENTOLIN NEBULES 2.5 MG INH ×3 (07:46→20:09)
[2024-06-24] MEDS: SODIUM CHLORIDE 3% FOR INHALATION 1 VIAL INH ×3 (07:46→20:09)
--- NOTE | 2024-06-24 08:00 | PTCARENOTE ---
pt sedated on vent , fentanyl gtt for pain effective for pain , he opens eyes to vocal stimulation and responds to commands, sinus jay on quality assurance monitor chassis , pt receiving HD currently , suctioning for thick yellow secretions , labs noted
--- NOTE | 2024-06-24 08:05 | W.PN.NEPH.PH ---
Today's Communication / Plan
-
Dialysis today
2 calcium bath provided
Hypercalcemia workup in process
Assessment/Plan
-
Impression:
ESRD MWF
Hypoxia/left lung atelectasis versus pneumonia
Large left pleural effusion s/p thoracentesis 06/21
CHF
Anemia
Hypertension hx
Hyponatremia
Secondary hyperparathyroidism
Hyperphosphatemia
PEG
Non-ST elevation PR
History of stroke with subsequent left hemiparesis dysarthria and dysphagia
Tunneled right HD IJ catheter
Chronic impacted right proximal humerus fracture
hypercalcemia
Plan:
HD today
sensipar to 90mg MWF, unsure why it was only given 2x/week at dialysis
Calcium remains elevated at 13, pamidronate provided yesterday and will perform dialysis on 2 calcium bath today
Hypercalcemia workup in process, including PTH RP
now off Bumex, outpatient dosing was also atypical with dosing on dialysis days and a higher dose on Sundays
Transfused packed red blood cells yesterday but hgb continues to fall
Patient transferred to intensive care unit last evening with agonal breathing and now intubated (This was noted with isolated U/F treatment yesterday)
Was transiently on pressor support
Chest x-ray reviewed this morning and appears clear
We will limit ultrafiltration to 2 kg as hemodynamically tolerated
Patient critically ill and now intubated and sedated
critical care time 35 minutes
-
-
Date of Service: June 24, 2024
CC / HPI / ROS
-
Chief Complaint:
ESRD
History of Present Illness:
BP stable after transient pressor support last evening
remains bradycardic in the 50s
critically ill in ICU
Calcium remains elevated 13.0
BS low, requiring D50 amps
troponin slowly decreasing 8.0
hgb low 7.5 despite blood transfusion provided yesterday
Review of Systems:
Intubated and sedated
No fever
Hard of hearing
Labs
-
Labs:
WBC 19.0 10^3/uL (4.8-10.8) H 06/24/24 03:32
RBC 2.45 10^6/uL (4.70-6.10) L 06/24/24 03:32
Hgb 7.5 g/dL (13.0-18.0) L 06/24/24 03:32
Hct 22.5 % (39.0-52.0) L 06/24/24 03:32
Plt Count 152 10^3/uL (130-400) 06/24/24 03:32
Sodium 135 mmol/L (135-145) 06/24/24 03:32
Potassium 4.0 mmol/L (3.5-5.1) 06/24/24 03:32
Chloride 97 mmol/L (98-107) L 06/24/24 03:32
Carbon Dioxide 26 mmol/L (22-30) 06/24/24 03:32
BUN 45 mg/dl (9-20) H 06/24/24 03:32
Creatinine 3.5 mg/dL (0.7-1.3) H 06/24/24 03:32
eGFR 18.23 06/24/24 03:32
Glucose 87 mg/dl (70-99) 06/24/24 03:32
Calcium 13.1 mg/dl (8.4-10.2) H* 06/24/24 03:32
Phosphorus 2.5 mg/dl (2.5-4.5) 06/22/24 12:03
Apj-T-Vfsvleapzdk Pept > 09609 pg/ml 06/20/24 18:13
Albumin 2.8 g/dl (3.5-5.0) L 06/24/24 03:32
Physical Exam
-
Vital Signs:
Vital Signs
Temp Pulse Resp BP Pulse Ox
97.6 F 50 16 156/54 97
06/24/24 07:34 06/24/24 07:46 06/24/24 07:46 06/23/24 22:30 06/24/24 07:47
Cardiovascular:: Regular rate and rhythm (Bradycardia)
Respiratory:: Bilateral: Coarse
Lung Excursion:: Normal
Abdomen:: Nontender and Soft
Bowel Sounds:: Decreased
Extremity Edema:: None: Bilateral:
Bender Catheter: No
--- NOTE | 2024-06-24 08:12 | W.PN.NEPH.HD ---
Assessment
-
Patient seen on dialysis
Systolic blood pressure stable in the 130s
Patient remains intubated and sedated
Progress Note - Hemodialysis
-
Date of Service: June 24, 2024
Duration: 30 minutes and 3 hours
Potassium Bath: 2
Calcium Bath: 2
Opti-Dialyzer: 160
Ultrafiltration: Other (2 kg as hemodynamically tolerated)
Blood Flow: 400
Dialysate Flow: 600
Heparin: On heparin drip
EPO: 10,000
--- NOTE | 2024-06-24 08:29 | W.PN.HOSP.TC ---
Today's Communication/Plan
-
see note
Assessment / Plan
Assessment / Plan
CT chest
1. Complete endobronchial obstruction of the left mainstem bronchus containing layering secretions. SEVERE NEAR COMPLETE AIRSPACE CONSOLIDATION of the LEFT UPPER and LOWER LOBES (either atelectasis or pneumonia).
2. LARGE LEFT PLEURAL EFFUSION.
3. Moderate to large right pleural effusion.
4. Moderate to severe cardiomegaly.
5. Severe calcific atherosclerotic plaque in the coronary arteries.
6. Right IJ hemodialysis catheter in place.
7. Chronic impacted fracture of the right proximal humerus.

1. Left mainstem bronchus obstruction from secretions
Bilateral pleural effusion
Compression atelectasis
- Patient with history of CVA/PEG tube and on tube feeding
- Patient was on cefepime, has been discontinued on pulmonology recommendation as there is no supporting evidence of ongoing pneumonia
- Patient underwent left-sided thoracentesis of 1.45 L of transudative fluid. Fluid analysis reports reviewed. Fluid culture has been negative for any growth
- Patient underwent right-sided thoracentesis of 1.1 L of transudative fluid.
2. Cardiac arrest - Asystole
Vent dependent respiratory failure
- possible multifactorial with hypoxia from pulm congestion with bradycardia/hypercalcemia
- required 1 epi and 1 round CPR with ROSC achieved in 3min
- Intubated during the code
- Post intubation CXR reviewed persistent homogeneous retrocardiac left lower lobe opacity.
3. Elevated troponin
Rule out NSTEMI
- Cardiology is following
-Troponin max of 10.7
- On asa/heparin drip
-TTE showing EF 50-55%
4. Acute on chronic heart failure with reduced ejection fraction
- proBNP>92097
- Echo for 06/22/24
- volume management by HD
- Patient makes some urine and currently on IV Bumex as well
- Hold Carvedilol due to severe bradycardia
5. Sinus bradycardia with first-degree block
- Patient heart rate was in 30s and patient was encephalopathic on morning of 06/22. started dopamine empirically despite hypoxia/hypoglycemia was likely reason for encephalopathy.
- Hypercalcemia possibly playing role
- Cardiology considering PPM
6. Hypercalcemia
- Difficult to explain, max of 13.7, suspecting tertiary hyperparathyroidism
- Patient on Cinacalcet 120mg MOWE before admission, adjusted to 90mg MWF by nephro
- Further test vitd/pth/spep sent by nephro - f/u results
- will need CT a/p with contrast to r/o malignancy. CT chest at admission did not show any overt malignancy
7. History of CVA with left hemiparesis, dysarthria and dysphagia
PEG TF dependent
- TF resumption per vascular nurse
8. ESRD on HD ( MWF )
Right IJ Hemodialysis Catheter
Anemia of Chronic Disease
- had full HD on 06/19/24
- Continue Renvela for hyperphosphatemia
- PAPITO to be provided for anemia
- Got 1 unit PRBC for hemoglobin of 6.9. Patient developed pulmonary congestion after finishing three fourths of blood transfusion yesterday.
- No reported luminal blood loss. Occult stool test neg
- Heparin drip remains on for now
- will need to get CT a/p
Severe calcific atherosclerotic plaque in the coronary arteries on CT Chest
Right chronically impacted humeral neck fracture -imaging finding on CT chest, needs to be verified with previous records
Hyponatremia
Recent Flu
Benign Hypertension
Hyperlipidemia
Carotid artery disease s/p R CEA
BPH
Depression
DVT Prophylaxis: Heparin Drip.
Code Status: Limited DNR (See Update Note from Filiberto Stanford on 06/21/24)
REPULPING SUPERVISOR: Daughter, Tawnya Kauffman [phone]
Daughter Tawnya updated on 06/22 and 06/23
Total critical care time 43 mins . Total critical care time documented does not include time spent on separately billed procedures or the services of residents, students, nurses or physician assistants. I personally saw and examined the patient. I
have reviewed all diagnostic interpretations and treatment plans as written. I was present for the paulino portions of any procedures performed and the inclusive time noted in any critical care statement. Critical care time includes patient management
by me, time spent at the patients bedside, time to review lab and imaging results, discussing patient care, documentation in the medical record, and time spent with the family or caregiver.
Anticipated Discharge: > 48 hours
Subjective/Interval History
-
Date of Service: June 24, 2024
patient had brief asystole cardiac arrest in night required brief ACLS support
Patient was intubated during the cardiac arrest
Patient getting hemodialysis today
Remains afebrile overnight, vitally stable except remains bradycardic close to low 50s
Objective Data
-
Labs:
Laboratory Results
06/23/24 06/24/24
23:38 03:32
WBC 19.0 H
Hgb 7.5 L
Hct 22.5 L
Plt Count 152
APTT 74.0 H
HCO3 28.4 H
Sodium 135
Potassium 4.0
Chloride 97 L
Carbon Dioxide 26
BUN 45 H
Creatinine 3.5 H
Glucose 87
Calcium 13.1 H*
Total Bilirubin 0.6
AST 62 H
ALT 53 H
Alkaline Phosphatase 154 H
Vital Signs:
Vital Signs
Temp Pulse Resp BP Pulse Ox
97.6 F 50 16 156/54 97
06/24/24 07:34 06/24/24 07:46 06/24/24 07:46 06/23/24 22:30 06/24/24 07:47
I&O
06/23/24 06/24/24 06/25/24
06:59 06:59 06:59
Intake Total 1127.7 / 1204.2 1933.0 / 1933.0
Output Total 0 / 0
Balance 1127.7 / 1204.2 1933.0 / 1933.0
Review of Systems
-
Unable to obtain full review of systems at this time due to: Acuity and Patient Intubation
Physical Exam
-
General: Comfortable
HEENT: Other (Intubated)
Respiratory: Rhonchi
Cardiac: Regular Rhythm and S1/S2; Negative Murmur or Rub
Musculoskeletal: No Edema
Neuro: Sedated
Psych: Calm
[2024-06-24] MEDS: RETACRIT 10000 UNITS IV (08:43)
--- NOTE | 2024-06-24 09:11 | W.PN.CD ---
Today's Communication / Plan
-
Stop heparin (has received at least 48 hours for medical management of NSTEMI)
Continue aspirin and statin
Hold beta-dany for ongoing bradycardia
Hypercalcemia workup
Impression / Plan
-
A/P: 68-year-old male with past medical history of carotid artery disease status post right CEA at [facility], end-stage renal disease, hypertension, dyslipidemia, heart failure reduced ejection fraction EF reportedly 40 to
45%, and CVA who is here for shortness of breath. Cardiology is consulted for NSTEMI and bradycardia.
Acute hypoxic respiratory failure
- Likely multifactorial in the setting of pleural effusion, left mainstem bronchial secretions, aspiration, and acute on chronic HF. Status post thoracentesis.
- Pulmonary following. Currently on antibiotics and following up thoracentesis studies
- Volume management with HD and IV Bumex
- NPO with tube feeds and aspiration precautions
- Possible bronch today
Sinus bradycardia
- Previously was requiring IV dopamine. Suspect due to electrolyte derangements with hypercalcemia.
- Continue to monitor on telemetry
- No indication for PPM at this time
- Panscan today to look for malignancy as cause of hyperCa
NSTEMI
- Diagnosis is a threat to life.
- Troponin peaked at 10.7 and downtrended. He never had chest pain. TTE 06/22 with normal EF and no RWMAs
- He is s/p IV heparin for ~72h. Stopped due to anemia requiring pRBCs
- Initial plan was for [facility] this admission but given his critically ill status and normal TTE, we will plan for medical mgmt of NSTEMI
- Continue medical management with ASA and statin. BB on hold due to bradycardia.
Heart failure with recovered ejection fraction
- TTE 06/22/2024: LVEF 50-55%, normal RWM, reduced RV function, aortic sclerosis, trace TR
- Volume management with HD and Bumex
- GDMT limited by ESRD
Anemia, acute on chronic
- Likely due to chronic illness with ESRD and heparin in the setting of NSTEMI
Carotid artery disease s/p R CEA
- cont statin and aspirin
ESRD
- nephro following
HTN
- would hold anti-HTN for now
Hypercalcemia
- Panscan
CCT: 37 minutes
Subjective: Last night around 8 PM he had a bradycardic arrest, likely in the setting of respiratory distress and possible mucous plugging. Telemetry shows slowing sinus bradycardia with eventual heart rate 10 bpm. This morning he is intubated but
arousable to voice. On dialysis.
Physical Exam
Vital Signs/Labs
Vital Signs
Temp Pulse Resp BP Pulse Ox
97.6 F 50 16 156/54 97
06/24/24 07:34 06/24/24 07:46 06/24/24 07:46 06/23/24 22:30 06/24/24 07:47
06/23/24 06/24/24 06/25/24
06:59 06:59 06:59
Actual Weight 153 lb 3.54 oz 153 lb 3.54 oz
06/24/24 03:32
06/24/24 03:32
APTT 74.0 Sec (23.4-35.0) H 06/24/24 03:32
TSH 4.03 uIU/ml (0.47-4.68) 06/21/24 02:39
06/20/24
18:13
Ivy-D-Ytrnsqhsxzm Pept > 78015
LAB Results
06/21/24 06/21/24 06/22/24
09:56 17:45 00:35
Troponin I 10.700 H* 9.480 H* 9.060 H*
06/22/24 06/22/24
04:37 12:03
Troponin I 9.130 H* 8.010 H*
Physical Exam
Constitutional: No acute distress and Comfortable
Cardiovascular: Rhythm & rate is regular, Pedal edema is absent, S1S2 is normal and Murmur/rub/gallop absent
Respiratory: Other (Breathing comfortably on the vent, bilateral crackles and rhonchi anteriorly)
Data Reviewed
-
Date of Service: June 24, 2024
Medical Decision Making: Reviewed Test Results, Independent Historian Assessment, Test Interpretation and Review of Case with other Provider
EKG: Tracing Personally Visualized and interpreted
Echo: Report Reviewed by me
X-Ray/CT/US/MRI/NUC/PET: Image Personally Visualized and interpreted
Labs: Labs Reviewed by me
--- NOTE | 2024-06-24 11:02 | CM ---
Patient seen at bedside in ICU. Patient daughter and also present. Patient now intubated. Per chart review patient now Full code. CM will continue to follow for discharge planning needs. CM will continue to follow for discharge planning
needs.
Plan; SNF
[2024-06-24 12:29] LABS: Intact PTH 1022 pg/ml (13.6-85.8)
[2024-06-24 12:36] LABS: Glucose - Point of Care 72 mg/dl (70-99)
[2024-06-24] MEDS: MIRALAX 17 GRAMS TUBE (12:46)
[2024-06-24] MEDS: WELLBUTRIN REGULAR RELEASE PO ×3 (12:46→19:45)
[2024-06-24] MEDS: PREVACID 15 MG TUBE (12:46)
[2024-06-24] MEDS: ASPIR LOW (ENTERIC COATED) 81 MG PO (12:46)
[2024-06-24] MEDS: ZOSYN 50 IV ×2 (12:49→17:27)
[2024-06-24] MEDS: OMNIPAQUE 50 ML PO (12:49)
[2024-06-24] MEDS: SENSIPAR 90 MG PO (13:38)
[2024-06-24 13:40] LABS: Angiotensin-1-converting Enzym 26 U/L (16-85)
--- NOTE | 2024-06-24 14:06 | PTCARENOTE ---
pt daughter here updates given by Dr Villarreal , he is now off of IV heparin gtt , plans for CT scan of abdomen , chest and pelvis , currently receiving Oral CT dye , plan to restart tube feeds , pt oral gastric tube DC
[2024-06-24] MEDS: HEPARIN 4100 UNITS INTRACATH (14:53)
[2024-06-24 15:33] LABS: Vitamin D 1,25 Dihydroxy 20.3 pg/mL (19.9-79.3)
[2024-06-24] MEDS: CRESTOR 20 MG TUBE (17:27)
--- NOTE | 2024-06-24 18:41 | PTCARENOTE ---
CT scan completed Dr Villarreal aware of results , tube feedings started as ordered
[2024-06-24] MEDS: DEXTROSE 50% SYRINGE 12.5 GRAMS IV (19:37)
[2024-06-24 19:44] LABS: Glucose - Point of Care 66 mg/dl (70-99)
--- NOTE | 2024-06-24 20:00 | PTCARENOTE ---
software engineer web services, pt intub/sedated, SB HR 40s. RAC/R midline WNL- D10/Fent infusing per work list. Sat 99% on MV Fi02 40%, tolerating. TF infusing per order through PEG. repositioned, mouth care. will monitor.
[2024-06-24 20:04] LABS: Glucose - Point of Care 98 mg/dl (70-99)
[2024-06-24] MEDS: MELATONIN TUBE (21:01)
[2024-06-24] MEDS: FOLVITE 2 MG TUBE (21:04)
[2024-06-24] MEDS: HEPARIN 5000 UNITS SC (21:04)
[2024-06-24] MEDS: D10W 1000 IV (21:06)
[2024-06-24 23:48] LABS: Glucose - Point of Care 85 mg/dl (70-99)
--- NOTE | 2024-06-25 00:15 | PTCARENOTE ---
Reassessed- no changes in assessment. turned, skin care, CHG cloths, repositioned. pt with eyes open with care, nods appropriately. mouth care done. restful with eyes closed between care. will monitor.
[2024-06-25] MEDS: ZOSYN 50 IV ×3 (03:00→18:05)
[2024-06-25 03:09] VITALS: BMI 21.7
--- NOTE | 2024-06-25 04:00 | PTCARENOTE ---
no change in pt assessment.
[2024-06-25] MEDS: SUBLIMAZE 100 IV (04:01)
[2024-06-25 04:28] LABS: Hematocrit 21.5 % (39.0-52.0); Hemoglobin 7.2 g/dL (13.0-18.0); Mean Corp Hgb Conc. 33.5 g/dL (33.0-37.0); Mean Corpuscular Hgb 30.8 pg (27.0-31.0); Mean Corpuscular Volume 91.9 fL (80.0-94.0); Mean Platelet Volume 8.6 fL (7.4-10.4); Platelet Count 135 10^3/uL (130-400); Red Blood Cell Count 2.34 10^6/uL (4.70-6.10); Red Cell Dist. Width 15.3 % (11.5-14.5)
[2024-06-25 04:52] LABS: ALT (SGPT) 43 U/L (0-50); AST (SGOT) 38 U/L (17-59); Albumin 2.3 g/dl (3.5-5.0); Alkaline Phosphatase 126 U/L (38-126); Blood Urea Nitrogen 28 mg/dl (9-20); Calcium 12.4 mg/dl (8.4-10.2); Carbon Dioxide 30 mmol/L (22-30); Chloride 97 mmol/L (98-107); Estimated Creatinine Clearance 29 ml/min; Glucose 104 mg/dl (70-99); Potassium 3.6 mmol/L (3.5-5.1); Sodium 134 mmol/L (135-145); Total Bilirubin 0.5 mg/dl (0.2-1.3); Total Protein 4.8 g/dl (6.3-8.2); eGFR 28.67
[2024-06-25 05:31] LABS: Glucose - Point of Care 103 mg/dl (70-99)
[2024-06-25] MEDS: SUBLIMAZE 50 MCG IV (05:47)
[2024-06-25] MEDS: VENTOLIN NEBULES 2.5 MG INH ×3 (07:35→20:20)
[2024-06-25] MEDS: SODIUM CHLORIDE 3% FOR INHALATION 1 VIAL INH ×3 (07:35→20:24)
[2024-06-25] MEDS: HEPARIN 5000 UNITS SC ×2 (07:46→21:04)
[2024-06-25] MEDS: ASPIR LOW (ENTERIC COATED) 81 MG PO (07:46)
[2024-06-25] MEDS: WELLBUTRIN REGULAR RELEASE 150 MG PO (07:47)
[2024-06-25] MEDS: MIRALAX 17 GRAMS TUBE (07:47)
[2024-06-25] MEDS: PREVACID 15 MG TUBE (07:47)
--- NOTE | 2024-06-25 07:49 | W.PN.INTV ---
Today's Communication / Plan
Recommendations
Spontaneous breathing trial
If does well consider extubation now that secretions better handled-need clear directive in regards to reintubation/no reintubation if further respiratory compromise
Antibiotics
Hemodialysis
Hyperparathyroidism noted
Consideration towards eventual cardiac catheterization/pacemaker
Assessment
-
Patient is a 60-year-old gentleman with known history of carotid artery disease status post right CEA in the past, end-stage renal disease on hemodialysis, hypertension, hyperlipidemia, congestive heart failure with reduced ejection fraction of 40
to 45% as well as history of stroke in the past, who was brought from the [facility] for worsening shortness of breath. Patient reportedly has been feeling short of breath over the last couple of weeks which has been progressively
getting worse. Reported diagnosis of low enzymes patient has been on Tamiflu. In view of worsening respiratory status he was transferred to the emergency room for further workup. Imaging in the emergency room showing showed near complete collapse
of the left lung with large pleural effusion as well as moderate pleural effusion on the right side. Patient also was noted to have significantly elevated troponin along with sinus bradycardia. Patient was started on broad-spectrum antibiotics,
aspirin as well as heparin drip for suspected NSTEMI and was admitted to hospitalist service.
In view of large effusion, interventional radiology and pulmonary service were requested for further input.
Mucous plug obstructing left bronchus
Acute on top of chronic heart failure with reduced EF
Cardiopulmonary arrest-asystole requiring CPR/epinephrine 06/23/24-family reversed DNR status
Intubated 06/23/24
extubated
Bilateral pleural effusions
Elevated troponin
Sinus bradycardia
Hypotension
Hypercalcemia
End-stage renal disease on hemodialysis Saturday
Past Medical History: Reports CHF, GERD, HTN, Hypercholesterolemia, Hypothyroidism and Renal Failure (ESRD on HD ( MWF) )
Additional Past Medical History:
PEG tube dependent nutrition and for medication
Past Surgical History: Reports Other (PEG placement )
Other medical issues:
- NSTEMI. No chest pain. on ASA/Heparin. Cardiology service on case
- History of CVA with left hemiparesis, dysarthria and dysphagia. Patient is not n.p.o. at baseline and is on PEG tube feeding
- Sinus bradycardia with first degree heart block. Cardiology service in place. Coreg on hold.
- End-stage renal disease, on hemodialysis. Patient has a right upper chest permacath in place.
Plan
Events noted-primarily respiratory-suspect mucous plug-asystole requiring intubation-significant secretions status post epinephrine/CPR on 06/24/24
Ventilator settings reviewed
Attempt spontaneous breathing trial
Check ABG
Consider extubation with definitive plan/orders towards do not reintubate or reintubate
Bronchoscopy if additional mucous plugs
Chest x-ray 06/23/24-ET tube 5 cm above serina, nasogastric tube in place, slight improved aeration mid lung zones bilaterally, left lower lobe opacification persistent infiltrate right infrahilar region
Aspiration precautions
Mucus clearing devices if able
Nebulizers at as needed
CT chest abdomen and pelvis 06/24/24-2.8 cm soft tissue mass left lower neck, moderate bilateral pleural effusions right greater than left, no abnormal pleural-parenchymal pulmonary masses, mild right lower lobe consolidation as well as left lower
lobe consolidation concerning for pneumonia, bilateral adrenal hyperplasia, mild prostate hypertrophy, T7 and T11 compression fractures
No indication for bronchoscopy-respiratory therapy not reporting any plugs and CT chest without endobronchial mucus/lesions
Improved after bilateral thoracenteses-left - 06/21/2024-1450 mL, right 1100 mL-transudate
Monitor for fluid reaccumulation
CT chest with moderate right pleural effusion-consider repeat thoracentesis if does not improve with hemodialysis
Nephrology following-correspondence reviewed
Hemodialysis per nephrology
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
CT chest and abdomen-rule out underlying malignancy
If endobronchial obstruction then will consider bedside bronchoscopy
Follow hemoglobin-now 7.5
Transfuse as needed
Monitor for acute blood loss-no obvious source for blood loss
Cardiology following-correspondence reviewed-reviewed with Dr. Jensen
Monitor bradycardia
NSTEMI noted
Consideration towards cardiac catheterization and pacer
Echocardiogram reviewed
Sputum culture/87-ihpp-rymdsybe bacilli
Leukocytosis-WBCs now 19
Empiric antibiotics-Zosyn initiated-finish finite course-5-7 days
Tube feeds on hold-slowly resume-consider trickle feeding
Aspiration precautions
Head of bed elevation
Monitor bradycardia arrhythmia
Dopamine discontinued
Pressors as needed
DVT prophylaxis-on heparin
GI prophylaxis-on Prevacid
Nutrition-tube feeds with aspiration precautions
Bedside range of motion
Critical care statement: A total of 43 minutes of critical care time was provided for this patient today. This includes management of unstable vital signs, evaluation of the patient at bedside, reviewing the patient's pertinent medical records
including radiographs, management of ventilator, pressor management, microbiology, laboratory evaluations, and discussion with primary team, consultants, pharmacy, nutrition, physical therapy, case management, charge nurse, critical care nursing,
and respiratory therapy.
Data:
CXR 05/2024: 1. Near complete opacification of the left hemithorax which is likely secondary to a large left pleural effusion and airspace consolidation (compressive atelectasis or pneumonia).
2. Moderate ground-glass opacity in the infrahilar right lower lung which could be subsegmental atelectasis or pneumonia.
3. Right IJ hemodialysis catheter in place.
4. Chronic impacted fracture of the right humeral neck.
CT Chest 05/2024: 1. Complete endobronchial obstruction of the left mainstem bronchus containing layering secretions. SEVERE NEAR COMPLETE AIRSPACE CONSOLIDATION of the LEFT UPPER and LOWER LOBES (either atelectasis or pneumonia).
2. LARGE LEFT PLEURAL EFFUSION.
3. Moderate to large right pleural effusion.
4. Moderate to severe cardiomegaly.
5. Severe calcific atherosclerotic plaque in the coronary arteries.
6. Right IJ hemodialysis catheter in place.
7. Chronic impacted fracture of the right proximal humerus.
Subjective Dataa
Subjective Data
Date of Service:
Date of Service: June 25, 2024
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
Subjective:
sedated on the ventilator, opens eyes, secretions much improved, review of systems unobtainable
Review of Systems
General: Unobtainable - Sedation
Objective Data
Data Reviewed
Vital Signs / I&O / Oxygen:
Vital Signs
Temp Pulse Resp BP Pulse Ox
97.9 F 46 16 146/58 100
06/25/24 07:46 06/25/24 07:38 06/25/24 07:38 06/24/24 13:00 06/25/24 07:38
Intake and Output
06/24/24 06/25/24 06/26/24
06:59 06:59 06:59
Intake Total 3.0 / 1973.5 1525.5 / 1525.5
Balance 1933.0 / 1974.5 1525.5 / 1525.5
SaO2 [A/C] 99
SaO2 100
Nasal Cannula flow liters per 15
minute
Physical Exam
General: Respiratory Distress (n) and Comfortable
HEENT: Normocephalic, Anicteric and Moist Mucous Membranes
Cardiovascular: Regular Rhythm ( bradycardia)
Respiratory: Crackles, Rhonchi (n), Non-Labored Respirations, Accessory Resp Muscle Use (n), Stridor and ET Tube
GI: Soft, Non Distended and Non Tender
Neurology: Lethargic ( sedated on the ventilator)
Skin: Warm, Good Color, Cyanosis (n) and Jaundice (n)
Labs/Micro/Reports
Lab Data
06/25/24 04:13
06/25/24 04:13
Microbiology
06/20/24 20:17 Blood/Venous Blood Culture - Preliminary
No Growth in 4 days- Final report to follow
06/20/24 20:17 Blood/Venous Blood Culture - Preliminary
No Growth in 4 days- Final report to follow
06/22/24 13:54 Pleural Fluid Body Fluid Culture - Preliminary
No Growth After 48 Hours
06/22/24 13:54 Pleural Fluid Gram Stain - Preliminary
06/21/24 12:51 Pleural Fluid Body Fluid Culture - Final
No Growth After 72 Hours
06/21/24 12:51 Pleural Fluid Gram Stain - Final
06/23/24 21:53 Sputum Gram Stain - Preliminary
06/21/24 09:56 Nose MRSA Screen - Final
No Methicillin Resistant Staphylococcus aureus isolated.
[2024-06-25 08:05] VITALS: BP 99/52
--- NOTE | 2024-06-25 08:15 | PTCARENOTE ---
pawn broker as noted, pt intub/sedated, SB HR 40s. RAC/R midline WNL- D10/Fent infusing per work list. Sat 99% on AC16/450/5/40%, tolerating. TF infusing per order through PEG. repositioned, mouth care. SAT began at 0800, following commands, nods,
L sided weakness. will monitor.
--- NOTE | 2024-06-25 08:28 | W.PN.CD ---
Today's Communication / Plan
-
Cont medical management of NSTEMI
Monitoring bradycardia
Treatment of underlying conditions
Impression / Plan
-
A/P: 68-year-old male with past medical history of carotid artery disease status post right CEA at [facility], end-stage renal disease, hypertension, dyslipidemia, heart failure reduced ejection fraction EF reportedly 40 to
45%, and CVA who is here for shortness of breath. Cardiology is consulted for NSTEMI and bradycardia.
Acute hypoxic respiratory failure now ventilated
- Likely multifactorial in the setting of pleural effusion, left mainstem bronchial secretions, aspiration, and acute on chronic HF. Status post thoracentesis.
- Pulmonary following. Currently on antibiotics and following up thoracentesis studies
- Volume management with HD and IV Bumex --> although nearly anuric over last day or two
- NPO with tube feeds and aspiration precautions
Sinus bradycardia
- remains sinus jay inappropriate?
- consideration for PPM once clinical status improved
- no need for TVP at this time
NSTEMI
- Diagnosis is a threat to life.
- Troponin peaked at 10.7 and downtrended. He never had chest pain. TTE 06/22 with normal EF and no RWMAs
- Stopped heparin
- Medical managment of NSTEMI ischemic eval at some point? likely outpatient unless CP
- Continue medical management with ASA and statin. BB on hold due to bradycardia.
- echo below
Heart failure with recovered ejection fraction
- TTE 06/22/2024: LVEF 50-55%, normal RWM, reduced RV function, aortic sclerosis, trace TR
- Volume management with HD and Bumex
- GDMT limited by ESRD
Anemia, acute on chronic
- Likely due to chronic illness with ESRD and heparin in the setting of NSTEMI
Carotid artery disease s/p R CEA
- cont statin and aspirin
ESRD
- nephro following
HTN
- would hold anti-HTN for now
Hypercalcemia
- Enhancing mass posterior to the left thyroid gland. Differential includes exophytic thyroid nodule, parathyroid mass and lymphadenopathy. Thyroid ultrasound recommended.
CCT: 37 minutes
Subjective: Remains intubated possible SBT today
Physical Exam
Vital Signs/Labs
Vital Signs
Temp Pulse Resp BP Pulse Ox
97.9 F 46 16 146/58 100
06/25/24 07:46 06/25/24 07:38 06/25/24 07:38 06/24/24 13:00 06/25/24 07:38
06/24/24 06/25/24 06/26/24
06:59 06:59 06:59
Actual Weight 153 lb 3.54 oz 155 lb 13.869 oz
06/25/24 04:13
06/25/24 04:13
APTT 74.0 Sec (23.4-35.0) H 06/24/24 03:32
TSH 4.03 uIU/ml (0.47-4.68) 06/21/24 02:39
06/20/24
18:13
Mqj-T-Wpttynnogrq Pept > 92678
LAB Results
06/22/24
12:03
Troponin I 8.010 H*
Physical Exam
Constitutional: No acute distress
EENT: Anicteric
Cardiovascular: Rhythm & rate is regular
Respiratory: Other (coarse b/s )
GI: Soft
Neuro/Psych: Other (intubated )
Data Reviewed
-
Date of Service: June 25, 2024
Medical Decision Making: Reviewed Test Results
EKG: Tracing Personally Visualized and interpreted (sinus jay )
Echo: Report Reviewed by me
Labs: Labs Reviewed by me
--- NOTE | 2024-06-25 09:47 | W.PN.NEPH.PH ---
Today's Communication / Plan
-
Hypercalcemia likely due to primary hyperparathyroidism as PTH level is greater than 1000 even on high-dose Cinacalcet
Bradycardia persist
Patient remains intubated
Dialysis will be planned for tomorrow
Hemodynamically stable
Assessment/Plan
-
Impression:
ESRD MWF
Hypoxia/left lung atelectasis versus pneumonia
Large left pleural effusion s/p thoracentesis 06/21
CHF
Anemia
Hypertension hx
Hyponatremia
Secondary hyperparathyroidism
Hyperphosphatemia
PEG
Non-ST elevation [place]
History of stroke with subsequent left hemiparesis dysarthria and dysphagia
Tunneled right HD IJ catheter
Chronic impacted right proximal humerus fracture
hypercalcemia
Plan:
HD tomorrow, orders provided
sensipar to 90mg MWF, unsure why it was only given 2x/week at dialysis
Calcium remains elevated at 12.4, pamidronate provided 06/23 and using dialysis on 2 calcium bath
Hypercalcemia workup in process, including PTH RP: pth 1022: likely some component of primary hyperparathyroidism in play (soft tissue mass posterior to upper left thyroid gland noted on CT)
CT reviewed;: Large left pleural effusion moderate to right pleural effusion severe cardiomyopathy
now off Bumex, outpatient dosing was also atypical with dosing on dialysis days and a higher dose on Sundays
Transfused packed red blood cells 06/23 but hgb continues to fall
Patient transferred to intensive care unit with agonal breathing and now intubated (This was noted with isolated U/F treatment yesterday)
Was transiently on pressor support
Patient critically ill and now intubated and sedated
critical care time 31 minutes
Total Time Spent with Patient (in minutes): 31
-
-
Date of Service: June 25, 2024
CC / HPI / ROS
-
Chief Complaint:
ESRD
History of Present Illness:
hemodynamically stable
remains bradycardic in the 40s
critically ill in ICU
Calcium remains elevated 12.4
now on tubed feeds
troponin slowly decreasing 8.0
hgb low 7.2 despite blood transfusion provided
Review of Systems:
Intubated and sedated
tube feeds
No fever
Labs
-
Labs:
WBC 9.0 10^3/uL (4.8-10.8) 06/25/24 04:13
RBC 2.34 10^6/uL (4.70-6.10) L 06/25/24 04:13
Hgb 7.2 g/dL (13.0-18.0) L 06/25/24 04:13
Hct 21.5 % (39.0-52.0) L 06/25/24 04:13
Plt Count 135 10^3/uL (130-400) 06/25/24 04:13
Sodium 134 mmol/L (135-145) L 06/25/24 04:13
Potassium 3.6 mmol/L (3.5-5.1) 06/25/24 04:13
Chloride 97 mmol/L (98-107) L 06/25/24 04:13
Carbon Dioxide 30 mmol/L (22-30) 06/25/24 04:13
BUN 28 mg/dl (9-20) H 06/25/24 04:13
Creatinine 2.4 mg/dL (0.7-1.3) H 06/25/24 04:13
eGFR 28.67 06/25/24 04:13
Glucose 104 mg/dl (70-99) H 06/25/24 04:13
Calcium 12.4 mg/dl (8.4-10.2) H 06/25/24 04:13
Phosphorus 2.5 mg/dl (2.5-4.5) 06/22/24 12:03
Rxt-C-Rhjsczjptgd Pept > 41124 pg/ml 06/20/24 18:13
Albumin 2.3 g/dl (3.5-5.0) L 06/25/24 04:13
Physical Exam
-
Vital Signs:
Vital Signs
Temp Pulse Resp BP Pulse Ox
97.9 F 46 16 146/58 97
06/25/24 07:46 06/25/24 07:38 06/25/24 07:38 06/24/24 13:00 06/25/24 08:51
Cardiovascular:: Regular rate and rhythm (Bradycardia)
Respiratory:: Bilateral: Coarse
Lung Excursion:: Normal
Abdomen:: Nontender and Soft
Bowel Sounds:: Decreased
Extremity Edema:: None: Bilateral:
Bender Catheter: No
Other Findings::
intubated and sedated
--- NOTE | 2024-06-25 10:25 | PTCARENOTE ---
Attempting SBT but RR decreasing to 5-8 and Vt 200s. See RT note. Fentanyl remains off.
--- NOTE | 2024-06-25 11:24 | W.PN.HOSP.TC ---
Today's Communication/Plan
-
see note
Assessment / Plan
Assessment / Plan
CT chest
1. Complete endobronchial obstruction of the left mainstem bronchus containing layering secretions. SEVERE NEAR COMPLETE AIRSPACE CONSOLIDATION of the LEFT UPPER and LOWER LOBES (either atelectasis or pneumonia).
2. LARGE LEFT PLEURAL EFFUSION.
3. Moderate to large right pleural effusion.
4. Moderate to severe cardiomegaly.
5. Severe calcific atherosclerotic plaque in the coronary arteries.
6. Right IJ hemodialysis catheter in place.
7. Chronic impacted fracture of the right proximal humerus.
CT c/a/p
Moderate bilateral pleural effusions, right larger than left. Both improved.
Mild right lower lobe consolidation. Stable. Moderate left lower lobe consolidation. Improved. Both concerning for pneumonia.
Mild cardiomegaly. Improved.
Enhancing mass posterior to the left thyroid gland. Differential includes exophytic thyroid nodule, parathyroid mass and lymphadenopathy. Thyroid ultrasound recommended.
Bilateral adrenal hyperplasia. Stable
Mild bilateral renal atrophy.
Mild abdominopelvic ascites.
Moderate diffuse bladder wall thickening. This can be seen with cystitis or bladder outlet obstruction.
Mild prostate hypertrophy.
Findings suggestion moderate volume overload or third spacing.
T7 and T11 compression fractures. Stable. L1 area not imaged previously for comparison

1. Left mainstem bronchus obstruction from secretions
Bilateral pleural effusion
Compression atelectasis
- Patient with history of CVA/PEG tube and on tube feeding
- Patient was on cefepime, has been discontinued on pulmonology recommendation as there is no supporting evidence of ongoing pneumonia
- Patient underwent left-sided thoracentesis of 1.45 L of transudative fluid. Fluid analysis reports reviewed. Fluid culture has been negative for any growth
- Patient underwent right-sided thoracentesis of 1.1 L of transudative fluid.
- Repat CXR did not show any reaccumulation today
2. Cardiac arrest - Asystole
Vent dependent respiratory failure
- possible multifactorial with hypoxia from pulm congestion with bradycardia/hypercalcemia
- required 1 epi and 1 round CPR with ROSC achieved in 3min
- Intubated during the code
- Post intubation CXR reviewed persistent homogeneous retrocardiac left lower lobe opacity.
3. Elevated troponin
Rule out NSTEMI
- Cardiology is following
-Troponin max of 10.7
- On asa/heparin drip
-TTE showing EF 50-55%
4. Acute on chronic heart failure with reduced ejection fraction
- proBNP>45977
- Echo for 06/22/24
- volume management by HD
- Patient makes some urine and currently on IV Bumex as well
- Hold Carvedilol due to severe bradycardia
5. Sinus bradycardia with first-degree block
- Patient heart rate was in 30s and patient was encephalopathic on morning of 06/22. started dopamine empirically despite hypoxia/hypoglycemia was likely reason for encephalopathy.
- Hypercalcemia possibly playing role
- Cardiology considering PPM
6. Hypercalcemia
suspected Parathyroid adenoma
- Difficult to explain, max of 13.7, suspecting tertiary hyperparathyroidism
- Patient on Cinacalcet 120mg MOWE before admission, adjusted to 90mg MWF by nephro
- PTH significantly elevated - 1022, Ca 12.4 today
- CT c/a/p showing enlarged parathryoid gland
- F/u Thyroid US ordered.
7. History of CVA with left hemiparesis, dysarthria and dysphagia
PEG TF dependent
- TF resumption per welfare eligibility interviewer
8. ESRD on HD ( MWF )
Right IJ Hemodialysis Catheter
Anemia of Chronic Disease
- had full HD on 06/19/24
- Continue Renvela for hyperphosphatemia
- PAPITO to be provided for anemia
- Got 1 unit PRBC for hemoglobin of 6.9. Patient developed pulmonary congestion after finishing three fourths of blood transfusion yesterday.
- No reported luminal blood loss. Occult stool test neg
- Heparin drip has stopped at this point
- Discussed hbg 7.2 today with nephro and 1 U prbc tomorrow with HD will be provided.
Severe calcific atherosclerotic plaque in the coronary arteries on CT Chest
Right chronically impacted humeral neck fracture -imaging finding on CT chest, needs to be verified with previous records
Hyponatremia
Recent Flu
Benign Hypertension
Hyperlipidemia
Carotid artery disease s/p R CEA
BPH
Depression
DVT Prophylaxis: Heparin Drip.
Code Status: Limited DNR (See Update Note from Filiberto Stanford on 06/21/24)
STATION ATTENDANT: Daughter, Tawnya Kauffman [phone]
Daughter Tawnya updated on 06/22 and 06/23
06/24 extensive discussion with daughter at bedside. All questions answered regarding event leading up to cardiac arrest and further prognosis moving forward. After lengthy discussion family agreed for patient to be switched to DNI once extubated.
I have clarified to patient family that patient have permanent risk of repeated aspiration/mucous plugging in light of history of stroke/altered physiology at this point. If patient continues to have recurrent issues with pulmonary
aspiration/hypoxia patient would be appropriate for hospice eventually.
Total critical care time 38 mins . Total critical care time documented does not include time spent on separately billed procedures or the services of residents, students, nurses or physician assistants. I personally saw and examined the patient. I
have reviewed all diagnostic interpretations and treatment plans as written. I was present for the paulino portions of any procedures performed and the inclusive time noted in any critical care statement. Critical care time includes patient management
by me, time spent at the patients bedside, time to review lab and imaging results, discussing patient care, documentation in the medical record, and time spent with the family or caregiver.
Anticipated Discharge: > 48 hours
Subjective/Interval History
-
Date of Service: June 25, 2024
Remains intubated
Vitally stable not on vasopressors
Remains afebrile overnight
no acute events reported
Objective Data
-
Labs:
Laboratory Results
06/25/24
04:13
WBC 9.0
Hgb 7.2 L
Hct 21.5 L
Plt Count 135
Sodium 134 L
Potassium 3.6
Chloride 97 L
Carbon Dioxide 30
BUN 28 H
Creatinine 2.4 H
Glucose 104 H
Calcium 12.4 H
Total Bilirubin 0.5
AST 38
ALT 43
Alkaline Phosphatase 126
Vital Signs:
Vital Signs
Temp Pulse Resp BP Pulse Ox
97.9 F 47 17 99/52 100
06/25/24 07:46 06/25/24 10:00 06/25/24 10:00 06/25/24 08:05 06/25/24 10:00
I&O
06/24/24 06/25/24 06/26/24
06:59 06:59 06:59
Intake Total 1932.0 / 1973.5 1525.5 / 1615.5 455 / 455
Balance 3.0 / 1973.5 1525.5 / 1615.5 455 / 455
Review of Systems
-
Unable to obtain full review of systems at this time due to: Acuity
Physical Exam
-
General: Comfortable
HEENT: Other (Intubated)
Respiratory: Clear to Auscultation
Cardiac: Regular Rhythm and S1/S2; Negative Murmur or Rub
Musculoskeletal: No Edema
Neuro: Sedated
Psych: Calm
[2024-06-25 12:03] LABS: Glucose - Point of Care 132 mg/dl (70-99)
--- NOTE | 2024-06-25 12:31 | PTCARENOTE ---
Assessment unchanged. Currently on SAT/SBT
[2024-06-25 12:35] VITALS: BP_SYST 124; BP_SYST 128
[2024-06-25 13:18] LABS: B.E. 7.4 mmol/L; HCO3 32.5 mmol/L (21-28); O2 Saturation % 99.4 % (94-98); PCO2 49 mmHg (35-48); PO2 141 mmHg (83-108); pH 7.43 (7.35-7.45)
--- NOTE | 2024-06-25 14:21 | W.PN.UPDATE ---
Update Note
Progress Note Update
Updated Tawnya -GORAN and the patient's fx-hajc-cdrkac of Tawnya-at length-reevaluated the patient at the bedside, tolerating spontaneous breathing trial
Arterial blood gas reviewed-patient normally ready for extubation-secretions manageable, sedation weaned, hemodynamically stable with good ABG
Clear plan in regards to reintubation/CPR if the patient deteriorates after extubation which I told them was a distinct possibility with his mucus
Multiple questions were answered including long-term prognosis, etc.
Tawnya as well as patient's ex- are all in firm agreement-extubate, do not reintubate, no CPR, shocking or advanced cardiac life support processes
We will respect their wishes
I will communicate this with primary team, respiratory therapy and critical care nursing
--- NOTE | 2024-06-25 14:37 | CM ---
Patient seen at bedside in ICU. Patient now DNR per chart review. CM anticipates daughter Tawnya to send FMLA paperwork but have not yet received to email. CM will continue to follow for discharge planning needs.
Plan; SNF pending acceptance and will need auth.
--- NOTE | 2024-06-25 15:11 | PTCARENOTE ---
After discussion by Waiver Analyst with daughter about plan of care and code status, pt extubated to nasal canula. SpO2 98% but rhonchi audible. Encouraged cough and able to expectorate small amount of sputum. Does not appear SOB, RR 18. DNR bracelet
applied.
[2024-06-25 17:42] LABS: Glucose - Point of Care 102 mg/dl (70-99)
[2024-06-25] MEDS: COZAAR 25 MG TUBE (18:04)
[2024-06-25] MEDS: CRESTOR 20 MG TUBE (18:04)
[2024-06-25 19:09] LABS: Hepatitis B Surface Antigen Negative (Negative)
--- NOTE | 2024-06-25 20:00 | PTCARENOTE ---
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 SB HR 40s. RUE IV/RUE midline WNL- D10 infusing per order. Sat 100% on 2LNC- pt has wet voice quality, encouraged to cough/clear secretions- able to clear small amt, spoke with
BDoughertyNP for prn NT suction order- RT to admin neb. will monitor.
[2024-06-25 20:07] LABS: Albumin 2.65 g/dL (3.75-5.01); Alpha 1 Globulin 0.49 g/dL (0.19-0.46); Alpha 2 Globulin 0.86 g/dL (0.48-1.05); SPEP IFE Reflex Not Done; Total Protein-Electrophoresis 5.5 g/dL (6.3-8.2)
[2024-06-25] MEDS: ROBITUSSIN DM 10 ML PO (21:04)
[2024-06-25] MEDS: D10W 1000 IV (21:04)
[2024-06-25] MEDS: WELLBUTRIN REGULAR RELEASE 150 MG TUBE (21:05)
[2024-06-25] MEDS: FOLVITE 2 MG TUBE (21:05)
[2024-06-25] MEDS: MELATONIN 5 MG TUBE (21:05)
[2024-06-26] VITALS (28 sets, daily range): BP systolic 99–129; BP diastolic 52–82; BMI 22.0
--- NOTE | 2024-06-26 | PTCARENOTE ---
Reassessed, pt more alert/responsive to convo. CHG cloths, inc +lg amt formed and liquid BM, skin care, turned/repositioned. pt required NT suction to assist in clearing lg amt secretions. mouth care done. no further changes in assessment.
[2024-06-26 00:19] LABS: Glucose - Point of Care 127 mg/dl (70-99)
[2024-06-26] MEDS: ZOSYN 50 IV ×3 (03:00→18:20)
[2024-06-26 03:20] LABS: Hematocrit 21.3 % (39.0-52.0); Hemoglobin 7.1 g/dL (13.0-18.0); Mean Corp Hgb Conc. 33.3 g/dL (33.0-37.0); Mean Corpuscular Hgb 30.7 pg (27.0-31.0); Mean Corpuscular Volume 92.2 fL (80.0-94.0); Mean Platelet Volume 8.7 fL (7.4-10.4); Platelet Count 140 10^3/uL (130-400); Red Blood Cell Count 2.31 10^6/uL (4.70-6.10); Red Cell Dist. Width 15.3 % (11.5-14.5); White Blood Cell Count 7.4 10^3/uL (4.8-10.8)
[2024-06-26 03:40] LABS: Blood Urea Nitrogen 43 mg/dl (9-20); Calcium 12.1 mg/dl (8.4-10.2); Carbon Dioxide 29 mmol/L (22-30); Chloride 96 mmol/L (98-107); Estimated Creatinine Clearance 22 ml/min; Glucose 119 mg/dl (70-99); Potassium 3.6 mmol/L (3.5-5.1); Sodium 134 mmol/L (135-145); eGFR 19.57
--- NOTE | 2024-06-26 06:00 | PTCARENOTE ---
pt w/copious amt secretions- NT suctioned for thick yellow, also coughing up some on own. +inc BM- appears like pt was impacted-large amt formed hard stool out surrounded by large amt liquid. skin care. repositioned. no further changes.
[2024-06-26 06:44] LABS: Glucose - Point of Care 124 mg/dl (70-99)
[2024-06-26] MEDS: VENTOLIN NEBULES 2.5 MG INH ×3 (07:24→20:05)
[2024-06-26] MEDS: SODIUM CHLORIDE 3% FOR INHALATION 1 VIAL INH ×3 (07:24→20:05)
--- NOTE | 2024-06-26 07:30 | PTCARENOTE ---
Pt w/ coarse rhonchi throughout. Sating 99% on 2L NC, trialed on RA desated to 84%, placed back on RA, recovered quickly.
[2024-06-26] MEDS: HEPARIN 5000 UNITS SC ×2 (07:47→20:34)
[2024-06-26] MEDS: LOW STRENGTH ASPIRIN 81 MG TUBE (07:47)
[2024-06-26] MEDS: WELLBUTRIN REGULAR RELEASE 150 MG TUBE ×2 (07:47→20:34)
[2024-06-26] MEDS: PREVACID 15 MG TUBE (07:47)
[2024-06-26] MEDS: MIRALAX 17 GRAMS TUBE (07:48)
--- NOTE | 2024-06-26 08:14 | W.PN.CD ---
Today's Communication / Plan
-
Medical management of NSTEMI
monitor bradycardia
treat underlying causes
Impression / Plan
-
A/P: 68-year-old male with past medical history of carotid artery disease status post right CEA at [facility], end-stage renal disease, hypertension, dyslipidemia, heart failure reduced ejection fraction EF reportedly 40 to
45%, and CVA who is here for shortness of breath. Cardiology is consulted for NSTEMI and bradycardia.
Acute hypoxic respiratory failure now ventilated
- Likely multifactorial in the setting of pleural effusion, left mainstem bronchial secretions, aspiration, and acute on chronic HF. Status post thoracentesis.
- Pulmonary following. Currently on antibiotics and following up thoracentesis studies
- Volume management with HD and IV Bumex --> although nearly anuric over last day or two
- NPO with tube feeds and aspiration precautions
Sinus bradycardia
- remains sinus jay inappropriate --> possibly 2/2 hypercalcemia and parathyroid tumor causing this
- consideration for PPM once clinical status improved
- no need for TVP at this time
NSTEMI
- Diagnosis is a threat to life.
- Troponin peaked at 10.7 and downtrended. He never had chest pain. TTE 06/22 with normal EF and no RWMAs
- Stopped heparin
- Medical managment of NSTEMI ischemic eval at some point? likely outpatient unless CP
- Continue medical management with ASA and statin. BB on hold due to bradycardia.
- echo below
Heart failure with recovered ejection fraction
- TTE 06/22/2024: LVEF 50-55%, normal RWM, reduced RV function, aortic sclerosis, trace TR
- Volume management with HD and Bumex
- GDMT limited by ESRD
Anemia, acute on chronic
- Likely due to chronic illness with ESRD and heparin in the setting of NSTEMI
Carotid artery disease s/p R CEA
- cont statin and aspirin
ESRD
- nephro following
HTN
- would hold anti-HTN for now
Hypercalcemia
- Enhancing mass posterior to the left thyroid gland. Differential includes exophytic thyroid nodule, parathyroid mass and lymphadenopathy. Thyroid ultrasound recommended.
Subjective: extubated on oxygen confused
echo CONCLUSIONS
-Left ventricular ejection fraction is approximately 50-55%. Normal regional
wall motion.
-Borderline enlarged right ventricular size. Likely low normal right
ventricular systolic function.
-Severely dilated left atrium. Moderately dilated right atrium.
-Aortic sclerosis without stenosis.
-Trace tricuspid regurgitation. Right heart pressures could not be determined.
-Ascending aorta diameter 4.0 cm.
-The IVC is is dilated and does not collapse.
-Large pleural effusion present.
No prior study available for comparison.
Physical Exam
Vital Signs/Labs
Vital Signs
Temp Pulse Resp BP Pulse Ox
98 F 51 22 124/61 94
06/26/24 07:30 06/26/24 07:30 06/26/24 07:30 06/26/24 07:30 06/26/24 07:58
06/25/24 06/26/24 06/27/24
06:59 06:59 06:59
Actual Weight 155 lb 13.869 oz 157 lb 13.616 oz
06/26/24 03:06
06/26/24 03:06
APTT 74.0 Sec (23.4-35.0) H 06/24/24 03:32
TSH 4.03 uIU/ml (0.47-4.68) 06/21/24 02:39
06/20/24
18:13
Sxv-T-Rwbrtcxflhi Pept > 06523
Physical Exam
Constitutional: No acute distress and Confusion
EENT: Anicteric
Cardiovascular: Rhythm & rate is regular and Pedal edema is absent
Respiratory: Respiratory effort normal, Wheeze Present, Crackles Present and Rhonchi Present
GI: Soft
Neuro/Psych: Other (oriented to person and place (hospital) otherwise details are hazy )
Data Reviewed
-
Date of Service: June 26, 2024
EKG: Tracing Personally Visualized and interpreted (sinus jay )
Echo: Report Reviewed by me
Labs: Labs Reviewed by me
--- NOTE | 2024-06-26 08:48 | PTCARENOTE ---
Received pt sleeping, easily arousable. Oriented to self and 'hospital', appears very BLACKFEET. Denies pain. Q2hr turns, appears to be in pain w/ repositioning. SB 40's on monitor. BP wnl. A line dc'd at this time, pressure held, dressing intact. Plan to
downgrade pt per discussion w/ Dr Portillo, awaiting rounds. Anuric. Incontinent of loose brown stool. PEG in place, feedings at goal. Full assessment as documented.
--- NOTE | 2024-06-26 08:54 | W.PN.INTV ---
Today's Communication / Plan
Recommendations
Wean oxygen
Aspiration precautions
Antibiotics
Mucus clearing maneuvers
Consider palliative care/hospice
Assessment
-
Patient is a 60-year-old gentleman with known history of carotid artery disease status post right CEA in the past, end-stage renal disease on hemodialysis, hypertension, hyperlipidemia, congestive heart failure with reduced ejection fraction of 40
to 45% as well as history of stroke in the past, who was brought from the [facility] facility for worsening shortness of breath. Patient reportedly has been feeling short of breath over the last couple of weeks which has been progressively
getting worse. Reported diagnosis of low enzymes patient has been on Tamiflu. In view of worsening respiratory status he was transferred to the emergency room for further workup. Imaging in the emergency room showing showed near complete collapse
of the left lung with large pleural effusion as well as moderate pleural effusion on the right side. Patient also was noted to have significantly elevated troponin along with sinus bradycardia. Patient was started on broad-spectrum antibiotics,
aspirin as well as heparin drip for suspected NSTEMI and was admitted to hospitalist service.
In view of large effusion, interventional radiology and pulmonary service were requested for further input.
Mucous plug obstructing left bronchus
Acute on top of chronic heart failure with reduced EF
Cardiopulmonary arrest-asystole requiring CPR/epinephrine 06/23/24-family reversed DNR status
Intubated 06/23/24
Extubated 06/25/2024
Bilateral pleural effusions
Elevated troponin
Sinus bradycardia
Hypotension
Hypercalcemia
End-stage renal disease on hemodialysis Saturday
Past Medical History: Reports CHF, GERD, HTN, Hypercholesterolemia, Hypothyroidism and Renal Failure (ESRD on HD ( MWF) )
Additional Past Medical History:
PEG tube dependent nutrition and for medication
Past Surgical History: Reports Other (PEG placement )
Other medical issues:
- NSTEMI. No chest pain. on ASA/Heparin. Cardiology service on case
- History of CVA with left hemiparesis, dysarthria and dysphagia. Patient is not n.p.o. at baseline and is on PEG tube feeding
- Sinus bradycardia with first degree heart block. Cardiology service in place. Coreg on hold.
- End-stage renal disease, on hemodialysis. Patient has a right upper chest permacath in place.
Plan
Tolerated extubation 06/25/2024
Supplemental oxygen as needed-currently on 2 L
Difficulties mobilizing secretions-try vest therapy, nasal trumpet, deep suctioning, mucolytic's
Aspiration precautions
Nebulizers at as needed
CT chest abdomen and pelvis 06/24/24-2.8 cm soft tissue mass left lower neck, moderate bilateral pleural effusions right greater than left, no abnormal pleural-parenchymal pulmonary masses, mild right lower lobe consolidation as well as left lower
lobe consolidation concerning for pneumonia, bilateral adrenal hyperplasia, mild prostate hypertrophy, T7 and T11 compression fractures
No indication for bronchoscopy-respiratory therapy not reporting any plugs and CT chest without endobronchial mucus/lesions
Improved after bilateral thoracenteses-left - 06/21/2024-1450 mL, right 1100 mL-transudate
Monitor for fluid reaccumulation
CT chest with moderate right pleural effusion-consider repeat thoracentesis if does not improve with hemodialysis
Nephrology following-correspondence reviewed
Hemodialysis per nephrology
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
CT chest and abdomen-rule out underlying malignancy
If endobronchial obstruction then will consider bedside bronchoscopy
Follow hemoglobin-now 7.1
Transfuse as needed-on dialysis
Monitor for acute blood loss-no obvious source for blood loss
Cardiology following-correspondence reviewed-reviewed with Dr. Jensen
Monitor bradycardia
NSTEMI noted
Consideration towards cardiac catheterization and pacer
Echocardiogram reviewed
Sputum culture/47-ponv-ylpjqvie bacilli
Leukocytosis-WBCs now 19
Empiric antibiotics-Zosyn initiated-finish finite course--will time out after 7 days
Tube feeds as tolerated
Aspiration precautions
Head of bed elevation
Monitor bradycardia arrhythmia
Dopamine discontinued
Pressors as needed
DVT prophylaxis-on heparin
GI prophylaxis-on Prevacid
Nutrition-tube feeds with aspiration precautions
Bedside range of motion,
Reviewed with Dr. Villarreal
Consider palliative care/hospice
Critical care statement: A total of 45 minutes of critical care time was provided for this patient today. This includes management of unstable vital signs, evaluation of the patient at bedside, reviewing the patient's pertinent medical records
including radiographs, management of respiratory failuremicrobiology, laboratory evaluations, and discussion with primary team, consultants, pharmacy, nutrition, physical therapy, case management, charge nurse, critical care nursing, and
respiratory therapy.
Family meeting
Dr. Joseph 06/25/2024-Updated Tawnya CURRAN and the patient's rv-rmeh-jfmmod of Tawnya-at length-reevaluated the patient at the bedside, tolerating spontaneous breathing trial
Arterial blood gas reviewed-patient normally ready for extubation-secretions manageable, sedation weaned, hemodynamically stable with good ABG
Clear plan in regards to reintubation/CPR if the patient deteriorates after extubation which I told them was a distinct possibility with his mucus
Multiple questions were answered including long-term prognosis, etc.
Tawnya as well as patient's ex- are all in firm agreement-extubate, do not reintubate, no CPR, shocking or advanced cardiac life support processes
We will respect their wishes
I will communicate this with primary team, respiratory therapy and critical care nursing
Data:
CXR 05/2024: 1. Near complete opacification of the left hemithorax which is likely secondary to a large left pleural effusion and airspace consolidation (compressive atelectasis or pneumonia).
2. Moderate ground-glass opacity in the infrahilar right lower lung which could be subsegmental atelectasis or pneumonia.
3. Right IJ hemodialysis catheter in place.
4. Chronic impacted fracture of the right humeral neck.
CT Chest 05/2024: 1. Complete endobronchial obstruction of the left mainstem bronchus containing layering secretions. SEVERE NEAR COMPLETE AIRSPACE CONSOLIDATION of the LEFT UPPER and LOWER LOBES (either atelectasis or pneumonia).
2. LARGE LEFT PLEURAL EFFUSION.
3. Moderate to large right pleural effusion.
4. Moderate to severe cardiomegaly.
5. Severe calcific atherosclerotic plaque in the coronary arteries.
6. Right IJ hemodialysis catheter in place.
7. Chronic impacted fracture of the right proximal humerus.
Subjective Dataa
Subjective Data
Date of Service:
Date of Service: June 26, 2024
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
Subjective:
tolerated extubation, still requires oxygen, has difficulties mobilizing secretions, no distress
Review of Systems
General: Other ( per HPI)
Objective Data
Data Reviewed
Vital Signs / I&O / Oxygen:
Vital Signs
Temp Pulse Resp BP Pulse Ox
98 F 51 22 124/61 94
06/26/24 07:30 06/26/24 07:30 06/26/24 07:30 06/26/24 07:30 06/26/24 07:58
Intake and Output
06/25/24 06/26/24 06/27/24
06:59 06:59 06:59
Intake Total 1525.5 / 1615.5 2054 220 / 220
Balance 1525.5 / 1615.5 2054 220 / 220
SaO2 [CPAP] 99
SaO2 [A/C] 99
SaO2 94
Nasal Cannula flow liters per 2
minute
Physical Exam
General: Respiratory Distress (n) and Comfortable
HEENT: Normocephalic, Anicteric and Moist Mucous Membranes
Cardiovascular: Regular Rhythm ( bradycardia)
Respiratory: Crackles, Rhonchi (n), Non-Labored Respirations, Accessory Resp Muscle Use (n) and Stridor
GI: Soft, Non Distended and Non Tender
Neurology: Awake, Alert and Lethargic ( sedated on the ventilator)
Skin: Warm, Good Color, Cyanosis (n) and Jaundice (n)
Labs/Micro/Reports
Lab Data
06/26/24 03:06
06/26/24 03:06
Laboratory Results
06/25/24
13:10
pH 7.43
pCO2 49 H
pO2 141 H
HCO3 32.5 H
O2 Delivery Level
Microbiology
06/23/24 21:53 Sputum Respiratory Culture - Preliminary
Gram negative bacilli
06/23/24 21:53 Sputum Gram Stain - Preliminary
06/20/24 20:17 Blood/Venous Blood Culture - Final
No Growth - Final Report
06/20/24 20:17 Blood/Venous Blood Culture - Final
No Growth - Final Report
06/22/24 13:54 Pleural Fluid Body Fluid Culture - Final
No Growth After 72 Hours
06/22/24 13:54 Pleural Fluid Gram Stain - Final
06/21/24 12:51 Pleural Fluid Body Fluid Culture - Final
No Growth After 72 Hours
06/21/24 12:51 Pleural Fluid Gram Stain - Final
--- NOTE | 2024-06-26 10:40 | W.PN.NEPH.PH ---
Today's Communication / Plan
-
Dialysis
Assessment/Plan
-
Impression:
ESRD MWF
Hypoxia/left lung atelectasis versus pneumonia
Large left pleural effusion s/p thoracentesis 06/21
CHF
Anemia
Hypertension hx
Hyponatremia
Secondary hyperparathyroidism
Hyperphosphatemia
PEG
Non-ST elevation MS
History of stroke with subsequent left hemiparesis dysarthria and dysphagia
Tunneled right HD IJ catheter
Chronic impacted right proximal humerus fracture
hypercalcemia
Plan:
HD tomorrow, orders provided
sensipar to 90mg MWF, unsure why it was only given 2x/week at dialysis
Calcium remains elevated at 12.4, pamidronate provided 06/23 and using dialysis on 2 calcium bath
Hypercalcemia workup in process, including PTH RP: pth 1022: likely some component of primary hyperparathyroidism in play (soft tissue mass posterior to upper left thyroid gland noted on CT)
CT reviewed;: Large left pleural effusion moderate to right pleural effusion severe cardiomyopathy
now off Bumex,
Transfused packed red blood cells 06/23
Extubated
Pending dialysis/see orders
critical care time 31 minutes
-
-
Date of Service: June 26, 2024
CC / HPI / ROS
-
Chief Complaint:
ESRD
History of Present Illness:
hemodynamically stable
pulse remains bradycardic
critically ill in ICU
Calcium remains elevated 12.4
hgb stable
Review of Systems:
Extubated
No chest pain or shortness of breath
No fever
Labs
-
Labs:
WBC 7.4 10^3/uL (4.8-10.8) 06/26/24 03:06
RBC 2.31 10^6/uL (4.70-6.10) L 05/02/25 03:06
Hgb 7.1 g/dL (13.0-18.0) L 06/26/24 03:06
Hct 21.3 % (39.0-52.0) L 06/26/24 03:06
Plt Count 140 10^3/uL (130-400) 06/26/24 03:06
Sodium 134 mmol/L (135-145) L 06/26/24 03:06
Potassium 3.6 mmol/L (3.5-5.1) 06/26/24 03:06
Chloride 96 mmol/L (98-107) L 06/26/24 03:06
Carbon Dioxide 29 mmol/L (22-30) 06/26/24 03:06
BUN 43 mg/dl (9-20) H 06/26/24 03:06
Creatinine 3.3 mg/dL (0.7-1.3) H 06/26/24 03:06
eGFR 19.57 06/26/24 03:06
Glucose 119 mg/dl (70-99) H 06/26/24 03:06
Calcium 12.1 mg/dl (8.4-10.2) H 06/26/24 03:06
Phosphorus 2.5 mg/dl (2.5-4.5) 06/22/24 12:03
Roh-P-Nboanpzmnvr Pept > 48695 pg/ml 06/20/24 18:13
Albumin 2.3 g/dl (3.5-5.0) L 06/25/24 04:13
Physical Exam
-
Vital Signs:
Vital Signs
Temp Pulse Resp BP Pulse Ox
98 F 49 19 124/60 93
06/26/24 07:30 06/26/24 09:00 06/26/24 09:00 06/26/24 08:39 06/26/24 09:00
Cardiovascular:: Regular rate and rhythm (Bradycardia)
Respiratory:: Bilateral: Coarse
Lung Excursion:: Normal
Abdomen:: Nontender and Soft
Bowel Sounds:: Decreased
Extremity Edema:: None: Bilateral:
Bender Catheter: No
--- NOTE | 2024-06-26 11:00 | PTCARENOTE ---
Received pt in bed position. He has his eyes open and gurgling with expirations. Pulse ox 90% on 2 liters nasal cannula. He is not clearing or protecting his airway. He is not aware that he even has secretion or coughs with them. He was
oropharyngeally suctioned for a large amount of norris secretions. He then coughed while removing 14fr suction catheter. Was again suctioned for a large amount of thin norris secretions. He was informed of my concern that with him unaware of the
secretions he is gurgling on that he will decline and PNA will worsen, that this may not ever improve. He allowed me to suction orally as he attempted to cough on demand. Cough is extremely weak and ineffective. Right ACW IJ tunnelled HD catheter
capped w/dressing CDI. Right midline w/D10@20ml/hr. Right upper arm #20g protective catheter flushed and patent. Weak peripheral pulses. + L/E edema with L>R. Left upper extremity. Left hemiparesis. Fingers to his left hand contracted slightly.
Lungs dim on left throughout posteriorly, right with late expiratory wheeze. Anteriorly coarse rhonchi throughout. Hyperactive BSX4. Incontinent loose brown stool MASD on sacrum with dry sloughed area. Skin barrier applied along with moisture
barrier cream. C/O pain in his backside. No stool appreciated in anal vault. He was placed in a side lying position. Carlos pérez within reach. Aspiration precautions maintained. Will continue to monitor.
[2024-06-26 12:03] LABS: Glucose - Point of Care 136 mg/dl (70-99)
--- NOTE | 2024-06-26 14:27 | W.PN.HOSP.TC ---
Today's Communication/Plan
-
Transfer to IMU
see note
remains at high risk for pulm complication
Assessment / Plan
Assessment / Plan
CT chest
1. Complete endobronchial obstruction of the left mainstem bronchus containing layering secretions. SEVERE NEAR COMPLETE AIRSPACE CONSOLIDATION of the LEFT UPPER and LOWER LOBES (either atelectasis or pneumonia).
2. LARGE LEFT PLEURAL EFFUSION.
3. Moderate to large right pleural effusion.
4. Moderate to severe cardiomegaly.
5. Severe calcific atherosclerotic plaque in the coronary arteries.
6. Right IJ hemodialysis catheter in place.
7. Chronic impacted fracture of the right proximal humerus.
CT c/a/p
Moderate bilateral pleural effusions, right larger than left. Both improved.
Mild right lower lobe consolidation. Stable. Moderate left lower lobe consolidation. Improved. Both concerning for pneumonia.
Mild cardiomegaly. Improved.
Enhancing mass posterior to the left thyroid gland. Differential includes exophytic thyroid nodule, parathyroid mass and lymphadenopathy. Thyroid ultrasound recommended.
Bilateral adrenal hyperplasia. Stable
Mild bilateral renal atrophy.
Mild abdominopelvic ascites.
Moderate diffuse bladder wall thickening. This can be seen with cystitis or bladder outlet obstruction.
Mild prostate hypertrophy.
Findings suggestion moderate volume overload or third spacing.
T7 and T11 compression fractures. Stable. L1 area not imaged previously for comparison

1. Left mainstem bronchus obstruction from secretions
Bilateral pleural effusion
Compression atelectasis
- Patient with history of CVA/PEG tube and on tube feeding
- Patient was on cefepime, has been discontinued on pulmonology recommendation as there is no supporting evidence of ongoing pneumonia
- Patient underwent left-sided thoracentesis of 1.45 L of transudative fluid. Fluid analysis reports reviewed. Fluid culture has been negative for any growth
- Patient underwent right-sided thoracentesis of 1.1 L of transudative fluid.
- Repeat chest x-ray showing left-sided pleural effusion reaccumulating with concern effusion loculated
- May required repeat evaluation for one or both sided thoracentesis
- Continues to have poor cough reflex and excessive secretion. Deep suction been done periodically overnight with significant secretion
- CPT added to treatment regimen to help pulm toileting
2. Cardiac arrest - Asystole
Vent dependent respiratory failure - resolved
Acute hypoxic resp failure
- possible multifactorial with hypoxia from pulmonary congestion with bradycardia/hypercalcemia
- required 1 epi and 1 round CPR with ROSC achieved in 3min
- Intubated during the code
- Post intubation CXR reviewed persistent homogeneous retrocardiac left lower lobe opacity.
3. Elevated troponin
Rule out NSTEMI
- Cardiology is following
-Troponin max of 10.7
- On asa/heparin drip
-TTE showing EF 50-55%
4. Acute on chronic heart failure with reduced ejection fraction
- proBNP>[id number]
- Echo for 06/22/24
- volume management by HD
- Patient makes some urine and currently on IV Bumex as well
- Hold Carvedilol due to severe bradycardia
5. Sinus bradycardia with first-degree block
- Patient heart rate was in 30s and patient was encephalopathic on morning of 06/22. started dopamine empirically despite hypoxia/hypoglycemia was likely reason for encephalopathy.
- Hypercalcemia possibly playing role
- Cardiology considering PPM
6. Hypercalcemia
Parathyroid adenoma
Vit D deficiency
- Difficult to explain, max of 13.7, suspecting tertiary hyperparathyroidism
- Patient on Cinacalcet 120mg MOWE before admission, adjusted to 90mg MWF by nephro
- PTH significantly elevated - 1022, Ca 12.4 today
- CT c/a/p showing enlarged parathryoid gland
- Got pamidronate 30mg x1 inj/ f/u response
- Thyroid US showing parathyroid adenoma -will benefit with eventual parathyroidectomy if family preferred and clinically appropriate
- Vit d 25 OH - 20 , discussed with site coordinator replacement would be beneficial
7. History of CVA with left hemiparesis, dysarthria and dysphagia
PEG TF dependent
- TF resumption per assortment planner
8. ESRD on HD ( MWF )
Right IJ Hemodialysis Catheter
Anemia of Chronic Disease
- had full HD on 06/19/24
- Continue Renvela for hyperphosphatemia
- PAPITO to be provided for anemia
- Got 1 unit PRBC for hemoglobin of 6.9. Patient developed pulmonary congestion after finishing three fourths of blood transfusion yesterday.
- No reported luminal blood loss. Occult stool test neg
- Heparin drip has stopped at this point
-Patient to get second unit of PRBC today with dialysis for hemoglobin of 7.1 in the
9. Pseudomonal pneumonia
- Respiratory culture growing Pseudomonas aeruginosa, pansensitive to abx
- Pulmonology recommended 7-day course of Zosyn
Severe calcific atherosclerotic plaque in the coronary arteries on CT Chest
Right chronically impacted humeral neck fracture -imaging finding on CT chest, needs to be verified with previous records
Hyponatremia
Recent Flu
Benign Hypertension
Hyperlipidemia
Carotid artery disease s/p R CEA
BPH
Depression
DVT Prophylaxis: Heparin Drip.
Code Status: DNR/DNI -assortment planner discussed with family on 06/25
Daughter Tawnya updated on 06/22 and 06/23
06/24 extensive discussion with daughter at bedside. All questions answered regarding event leading up to cardiac arrest and further prognosis moving forward. After lengthy discussion family agreed for patient to be switched to DNI once extubated.
I have clarified to patient family that patient have permanent risk of repeated aspiration/mucous plugging in light of history of stroke/altered physiology at this point. If patient continues to have recurrent issues with pulmonary
aspiration/hypoxia patient would be appropriate for hospice eventually.
Anticipated Discharge: > 48 hours
Subjective/Interval History
-
Date of Service: June 26, 2024
Patient has been extubated yesterday
Remains on oxygen through nasal cannula
remains afebrile
remains bradycardic
poor cough reflex with increased secretion
Objective Data
-
Labs:
Laboratory Results
06/26/24
03:06
WBC 7.4
Hgb 7.1 L
Hct 21.3 L
Plt Count 140
Sodium 134 L
Potassium 3.6
Chloride 96 L
Carbon Dioxide 29
BUN 43 H
Creatinine 3.3 H
Glucose 119 H
Calcium 12.1 H
Vital Signs:
Vital Signs
Temp Pulse Resp BP Pulse Ox
97.6 F 49 18 124/60 95
06/26/24 11:45 06/26/24 12:51 06/26/24 12:51 06/26/24 08:39 06/26/24 12:51
I&O
06/25/24 06/26/24 06/27/24
06:59 06:59 06:59
Intake Total 1525.5 / 1615.5 2054 670 / 670
Balance 1525.5 / 1615.5 2054 670 / 670
Review of Systems
-
Respiratory: Reports Cough and Trouble Breathing
Cardiac: Reports No Symptoms
Abdomen/GI: Reports No Symptoms
Physical Exam
-
General: Comfortable
HEENT: Other (o2 through NC)
Respiratory: Rhonchi (increased secretion)
Cardiac: Regular Rhythm and S1/S2; Negative Murmur or Rub
GI: Soft, Nontender and Peg Tube
Musculoskeletal: No Edema
Neuro: Awake, Alert and No Motor Deficits
Psych: Calm
--- NOTE | 2024-06-26 14:53 | PTCARENOTE ---
Tawnya Kauffman [phone], the pt's daughter & her mother, the pt's ex- Nadya, were updated on the phone. Her father has not been able to manage his secretions or know that they are in his airway. He does not have a protective cough, he
coughs when I ask him to cough and it is weak if he coughs at all. He was suctioned for copious amounts of thin norris secretions while suction catheter was in his oropharynx. I verbalized that information on hospice would be helpful in guiding their
decision and provide them time to think about it over the weekend. Should he decline over the weekend it was advised to transition to comfort at that time and not escalate oxygen modalities until they come to see him Saturday. It was explained that
hospice and/or comfort measure pivots the focus of care to treating symptoms of discomfort rather than focusing on a cure and recovery from disease condition. Supportive care provided. I do not feel that he is not fully aware of the events of his
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 He did not know that his daughter was aware he has PNA, he did not remember her visiting. Safe environment maintained. Will continue to monitor.
[2024-06-26] MEDS: SENSIPAR 90 MG TUBE (15:00)
[2024-06-26] MEDS: RETACRIT 10000 UNITS IV (15:22)
--- NOTE | 2024-06-26 15:45 | PTCARENOTE ---
Spoke with Dr. Villarreal on the phone regarding my conversation with Tawnya, the pt's daughter regarding Hospice and transition to comfort should he decline and require additional oxygen modalities over the weekend. They plan of visiting on Saturday and
speaking with him regarding stopping HD, & transition to hospice. I informed him that pt is not really aware of the entirety of his hospitalization and just how sick he really is, and unaware of secretions in his pharynx that should elicit a cough
to clear. He is not coughing when he should be and when he does it is ineffective. Hospice consult to provide them/family information regarding if he would remain in the hospital or be able to go back to [facility] and what it entails. Will D/C
D10 as ordered.
[2024-06-26] MEDS: SENSIPAR PO (17:26)
[2024-06-26] MEDS: HEPARIN 3600 UNITS INTRACATH (18:14)
[2024-06-26] MEDS: CRESTOR 20 MG TUBE (18:20)
--- NOTE | 2024-06-26 18:25 | W.PN.NEPH.HD ---
Progress Note - Hemodialysis
-
Date of Service: June 26, 2024
Duration: 30 minutes and 3 hours
Potassium Bath: 2
Calcium Bath: 2
Opti-Dialyzer: 160
Ultrafiltration: Other (2 kg as hemodynamically tolerated)
Blood Flow: 400
Dialysate Flow: 600
Heparin: On heparin drip
EPO: 10,000
--- NOTE | 2024-06-26 18:32 | PTCARENOTE ---
Repositioned. Placed on his left side. Absent breath sounds on the left, diminished on the right. Orthopneic.
[2024-06-26 20:27] LABS: Glucose - Point of Care 68 mg/dl (70-99)
[2024-06-26] MEDS: MELATONIN 5 MG TUBE (20:34)
[2024-06-26] MEDS: FOLVITE 2 MG TUBE (20:34)
[2024-06-26 20:59] LABS: Glucose - Point of Care 87 mg/dl (70-99)
[2024-06-26 23:20] LABS: Glucose - Point of Care 117 mg/dl (70-99)
[2024-06-27] VITALS (22 sets, daily range): BP systolic 119–165; BP diastolic 53–80; BMI 21.3
[2024-06-27 01:10] LABS: Glucose - Point of Care 115 mg/dl (70-99)
[2024-06-27] MEDS: ZOSYN 50 IV ×3 (02:27→17:16)
[2024-06-27 03:03] LABS: Glucose - Point of Care 121 mg/dl (70-99)
[2024-06-27 04:01] LABS: Hematocrit 28.2 % (39.0-52.0); Hemoglobin 9.3 g/dL (13.0-18.0); Mean Corpuscular Hgb 30.2 pg (27.0-31.0); Mean Corpuscular Volume 91.6 fL (80.0-94.0); Mean Platelet Volume 8.5 fL (7.4-10.4); Platelet Count 164 10^3/uL (130-400); Red Blood Cell Count 3.08 10^6/uL (4.70-6.10); Red Cell Dist. Width 15.5 % (11.5-14.5); White Blood Cell Count 8.3 10^3/uL (4.8-10.8)
[2024-06-27 04:15] LABS: Blood Urea Nitrogen 30 mg/dl (9-20); Calcium 11.2 mg/dl (8.4-10.2); Carbon Dioxide 27 mmol/L (22-30); Chloride 97 mmol/L (98-107); Estimated Creatinine Clearance 30 ml/min; Glucose 101 mg/dl (70-99); Potassium 3.5 mmol/L (3.5-5.1); Sodium 136 mmol/L (135-145); eGFR 30.17
--- NOTE | 2024-06-27 07:30 | PTCARENOTE ---
report received. aaox2. nsr on monitor. 2lnc. pulse ox >93%. rhonchus and coarse rajani. deep suction provided. +1 generalized anasarca. nephro tf @ 55cc/hr. daughter updated on plan of care. will monitor.
[2024-06-27] MEDS: VENTOLIN NEBULES 2.5 MG INH ×3 (07:38→20:28)
[2024-06-27] MEDS: SODIUM CHLORIDE 3% FOR INHALATION 1 VIAL INH ×3 (07:38→20:28)
--- NOTE | 2024-06-27 08:20 | W.PN.INTV ---
Today's Communication / Plan
Recommendations
Wean oxygen as tolerated
Aspiration precautions
Antibiotics
Mucus clearing maneuvers
Check left-sided chest ultrasound and if adequate fluid then consult IR for thoracentesis
Strict I/O
Consider palliative care/hospice
Assessment
-
Patient is a 60-year-old gentleman with known history of carotid artery disease status post right CEA in the past, end-stage renal disease on hemodialysis, hypertension, hyperlipidemia, congestive heart failure with reduced ejection fraction of 40
to 45% as well as history of stroke in the past, who [facility] for worsening shortness of breath. Patient reportedly has been feeling short of breath over the last couple of weeks which has been progressively
getting worse. Reported diagnosis of low enzymes patient has been on Tamiflu. In view of worsening respiratory status he was transferred to the emergency room for further workup. Imaging in the emergency room showing showed near complete collapse
of the left lung with large pleural effusion as well as moderate pleural effusion on the right side. Patient also was noted to have significantly elevated troponin along with sinus bradycardia. Patient was started on broad-spectrum antibiotics,
aspirin as well as heparin drip for suspected NSTEMI and was admitted to hospitalist service.
In view of large effusion, interventional radiology and pulmonary service were requested for further input.
Mucous plug obstructing left bronchus
Acute on chronic HFpEF
Cardiopulmonary arrest-asystole requiring CPR/epinephrine 06/23/24-family reversed DNR status
Intubated 06/23/24
Extubated 06/25/2024
Bilateral pleural effusions due to acute decompensated heart failure
Elevated troponin
Sinus bradycardia
Hypotension
Hypercalcemia
End-stage renal disease on hemodialysis Saturday
Past Medical History: Reports CHF, GERD, HTN, Hypercholesterolemia, Hypothyroidism and Renal Failure (ESRD on HD ( MWF) )
Additional Past Medical History:
PEG tube dependent nutrition and for medication
Past Surgical History: Reports Other (PEG placement )
Other medical issues:
- NSTEMI. No chest pain. on ASA/Heparin. Cardiology service on case
- History of CVA with left hemiparesis, dysarthria and dysphagia. Patient is not n.p.o. at baseline and is on PEG tube feeding
- Sinus bradycardia with first degree heart block. Cardiology service in place. Coreg on hold.
- End-stage renal disease, on hemodialysis. Patient has a right upper chest permacath in place.
Plan
Tolerated extubation 06/25/2024
His CXR checked today (06/27) shows improvement in terms of aeration of left lung
Continue with supplemental oxygen to maintain SpO2 >90-94%
Continue aspiration precaution
Difficulties mobilizing secretions- continue vest therapy, nasal trumpet, deep suctioning, mucolytics with nebulized 3% TID
Nebulizers at as needed
CT chest abdomen and pelvis 06/24/24-2.8 cm soft tissue mass left lower neck, moderate bilateral pleural effusions right greater than left, no abnormal pleural-parenchymal pulmonary masses, mild right lower lobe consolidation as well as left lower
lobe consolidation concerning for pneumonia, bilateral adrenal hyperplasia, mild prostate hypertrophy, T7 and T11 compression fractures
No indication for bronchoscopy-respiratory therapy not reporting any plugs and CT chest without endobronchial mucus/lesions
Improved after bilateral thoracenteses-left - 06/21/2024-1450 mL, right 1100 mL-transudative on both thoracenteses procedures
Monitor for fluid reaccumulation
CT chest with moderate right pleural effusion-consider repeat thoracentesis if does not improve with hemodialysis
Check left-sided chest ultrasound as CXR today shows that the right-sided effusion has not recurred -if enough fluid is available for thoracentesis, then we will consult IR
Nephrology following-correspondence reviewed
Hemodialysis per nephrology
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
Trend Hb
Transfuse as needed to keep Hb>7g/dL-on dialysis
Monitor for acute blood loss-no obvious source for blood loss
He was transfused 2 units packed red blood cells thus far: 1 unit on 06/23/2024 and last unit on 06/26/2024
Cardiology following-correspondence reviewed-reviewed with Dr. Wolf
Monitor HR - keep >50
NSTEMI noted
Consideration towards cardiac catheterization and pacer - defer to cardiology depending on GOC
Echocardiogram reviewed
Sputum culture 06/23/24-grew Pseudomonas aeruginosa which was pansensitive
Trend WBC and monitor for fevers
Empiric antibiotics-Zosyn initiated on 06/24-finish finite course--will time out after 7 days
Tube feeds as tolerated
Aspiration precautions
Head of bed elevation
Monitor bradyarrhythmia
Dopamine discontinued
Pressors as needed
DVT prophylaxis-on heparin
GI prophylaxis-on Prevacid
Nutrition-tube feeds with aspiration precautions
Bedside range of motion
Reviewed with Dr. Villarreal
Consider palliative care/hospice
Pulmonary service will continue to follow him. Continue IMU level care.
Family meeting
Dr. Joseph 06/25/2024-Updated Tawnya MIRNAEula and the patient's [id number] of Tawnya-at length-reevaluated the patient at the bedside, tolerating spontaneous breathing trial
Arterial blood gas reviewed-patient normally ready for extubation-secretions manageable, sedation weaned, hemodynamically stable with good ABG
Clear plan in regards to reintubation/CPR if the patient deteriorates after extubation which I told them was a distinct possibility with his mucus
Multiple questions were answered including long-term prognosis, etc.
Tawnya as well as patient's ex- are all in firm agreement-extubate, do not reintubate, no CPR, shocking or advanced cardiac life support processes
We will respect their wishes
I will communicate this with primary team, respiratory therapy and critical care nursing
Data:
CXR 05/2024: 1. Near complete opacification of the left hemithorax which is likely secondary to a large left pleural effusion and airspace consolidation (compressive atelectasis or pneumonia).
2. Moderate ground-glass opacity in the infrahilar right lower lung which could be subsegmental atelectasis or pneumonia.
3. Right IJ hemodialysis catheter in place.
4. Chronic impacted fracture of the right humeral neck.
CT Chest 05/2024: 1. Complete endobronchial obstruction of the left mainstem bronchus containing layering secretions. SEVERE NEAR COMPLETE AIRSPACE CONSOLIDATION of the LEFT UPPER and LOWER LOBES (either atelectasis or pneumonia).
2. LARGE LEFT PLEURAL EFFUSION.
3. Moderate to large right pleural effusion.
4. Moderate to severe cardiomegaly.
5. Severe calcific atherosclerotic plaque in the coronary arteries.
6. Right IJ hemodialysis catheter in place.
7. Chronic impacted fracture of the right proximal humerus.
Total time spent today was 76 minutes for this encounter. Time includes reviewing laboratory test/imaging results, reviewing pertinent medical records, obtaining and reviewing medical history, performing an appropriate exam, ordering medications,
tests and procedures. Time also includes documentation of this encounter, coordinating patient care and communicating with other healthcare professionals. Total time does not include separately billed tests performed on this date of service.
Subjective Dataa
Subjective Data
Date of Service:
Date of Service: June 27, 2024
Chief Complaint: Gold Stamper Follow Up and Pulmonary Follow Up
Subjective:
Patient was seen and evaluated today at bedside. Currently on tube feeds at 50 cc an hour. He is being NT suction this morning but not much output. Heart rate 59, saturating 94% on 2 L/min nasal cannula, and BP 134/65. He is awake, following
commands and in no acute distress.
Review of Systems
General: Other (Unable to obtain given patient's acute clinical status)
Objective Data
Data Reviewed
Vital Signs / I&O / Oxygen:
Vital Signs
Temp Pulse Resp BP Pulse Ox
97.9 F 59 16 125/62 93
06/27/24 07:19 06/27/24 07:41 06/27/24 07:41 06/27/24 04:23 06/27/24 07:41
Intake and Output
06/26/24 06/27/2425
06:59 06:59 06:59
Intake Total 2054
Balance 2054
SaO2 [CPAP] 99
SaO2 [A/C] 99
SaO2 93
Nasal Cannula flow liters per 2
minute
Physical Exam
General: Respiratory Distress (n), Comfortable, Chills (negative) and Sweats (negative)
HEENT: Normocephalic and Anicteric
Cardiovascular: S1-S2 and Peripheral Edema (negative)
Respiratory: Wheeze (negative), Crackles (Bilateral), Rhonchi (Bilateral), Non-Labored Respirations, Accessory Resp Muscle Use (n) and Stridor (negative)
GI: Soft, Non Distended, Non Tender and Normal Bowel Sounds
Neurology: Awake, Alert, Tremors (negative) and Lethargic
Skin: Warm, Dry, Cyanosis (n) and Jaundice (n)
Labs/Micro/Reports
Lab Data
06/27/24 03:30
06/27/24 03:30
Microbiology
06/23/24 21:53 Sputum Respiratory Culture - Final
Pseudomonas aeruginosa
06/23/24 21:53 Sputum Gram Stain - Final
06/20/24 20:17 Blood/Venous Blood Culture - Final
No Growth - Final Report
06/20/24 20:17 Blood/Venous Blood Culture - Final
No Growth - Final Report
06/22/24 13:54 Pleural Fluid Body Fluid Culture - Final
No Growth After 72 Hours
06/22/24 13:54 Pleural Fluid Gram Stain - Final
06/21/24 12:51 Pleural Fluid Body Fluid Culture - Final
No Growth After 72 Hours
06/21/24 12:51 Pleural Fluid Gram Stain - Final
[2024-06-27] MEDS: MIRALAX TUBE (08:58)
[2024-06-27] MEDS: HEPARIN 5000 UNITS SC ×2 (08:58→20:34)
[2024-06-27] MEDS: PREVACID 15 MG TUBE (08:58)
[2024-06-27] MEDS: LOW STRENGTH ASPIRIN 81 MG TUBE (08:58)
[2024-06-27] MEDS: SENSIPAR 90 MG TUBE (09:01)
[2024-06-27] MEDS: WELLBUTRIN REGULAR RELEASE 150 MG TUBE ×2 (09:02→20:34)
[2024-06-27] MEDS: TYLENOL 650 MG TUBE ×2 (09:28→17:22)
--- NOTE | 2024-06-27 09:37 | W.PN.CD ---
Today's Communication / Plan
-
Cardiology will sign off
Impression / Plan
-
A/P: 68-year-old male with past medical history of carotid artery disease status post right CEA at [facility], end-stage renal disease, hypertension, dyslipidemia, heart failure reduced ejection fraction EF reportedly 40 to
45%, and CVA who is here for shortness of breath. Cardiology is consulted for NSTEMI and bradycardia.
Acute hypoxic respiratory failure now ventilated, multifactorial in the setting of pleural effusion, left mainstem bronchial secretions, aspiration, and acute on chronic HF. Status post thoracentesis.
Sinus bradycardia
- remains sinus jay inappropriate --> possibly 2/2 hypercalcemia and parathyroid tumor causing this
- No indication for pacemaker at this time
NSTEMI, peak troponin peaked at 10.7, echo 06/22 with normal EF and no RWMAs
- Med rx with ASA/statin. No BB b/c bradycardia
Heart failure with recovered ejection fraction
- TTE 06/22/2024: LVEF 50-55%, normal RWM, reduced RV function, aortic sclerosis, trace TR
- Volume management with HD and Bumex
- GDMT limited by ESRD
Anemia, acute on chronic
- Likely due to chronic illness with ESRD and heparin in the setting of NSTEMI
Carotid artery disease s/p R CEA
ESRD => dialysis
Hx HTN
Hypercalcemia
- Enhancing mass posterior to the left thyroid gland. Differential includes exophytic thyroid nodule, parathyroid mass and lymphadenopathy. Thyroid ultrasound recommended.
Subjective: No CP.
Echo 06/22/2024: LVEF 50-55%. Borderline enlarged right ventricular size. Likely low normal RV systolic function. Severely left and moderate right atrial enlargement, Moderately dilated right atrium. Right heart pressures could not be determined,
Asc Ao 4.0 cm. IVC is is dilated and does not collapse. Large pleural effusion present. No prior study available for comparison.
Physical Exam
Vital Signs/Labs
Vital Signs
Temp Pulse Resp BP Pulse Ox
97.9 F 59 16 125/62 93
06/27/24 07:19 06/27/24 07:41 06/27/24 07:41 06/27/24 04:23 06/27/24 07:41
06/26/24 06/27/24 06/28/24
06:59 06:59 06:59
Actual Weight 71.6 kg 69.2 kg
06/27/24 03:30
06/27/24 03:30
APTT 74.0 Sec (23.4-35.0) H 06/24/24 03:32
TSH 4.03 uIU/ml (0.47-4.68) 06/21/24 02:39
06/20/24
18:13
[id number] Pept > 40253
Physical Exam
Constitutional: No acute distress
EENT: Anicteric
Cardiovascular: Rhythm & rate is regular and Pedal edema is absent
Respiratory: Rhonchi Present
GI: Soft and Distention absent
Data Reviewed
-
Date of Service: June 27, 2024
[2024-06-27 10:53] LABS: Glucose - Point of Care 139 mg/dl (70-99)
--- NOTE | 2024-06-27 14:35 | W.PN.HOSP.TC ---
Today's Communication/Plan
-
see note
Assessment / Plan
Assessment / Plan
CT chest
1. Complete endobronchial obstruction of the left mainstem bronchus containing layering secretions. SEVERE NEAR COMPLETE AIRSPACE CONSOLIDATION of the LEFT UPPER and LOWER LOBES (either atelectasis or pneumonia).
2. LARGE LEFT PLEURAL EFFUSION.
3. Moderate to large right pleural effusion.
4. Moderate to severe cardiomegaly.
5. Severe calcific atherosclerotic plaque in the coronary arteries.
6. Right IJ hemodialysis catheter in place.
7. Chronic impacted fracture of the right proximal humerus.
CT c/a/p
Moderate bilateral pleural effusions, right larger than left. Both improved.
Mild right lower lobe consolidation. Stable. Moderate left lower lobe consolidation. Improved. Both concerning for pneumonia.
Mild cardiomegaly. Improved.
Enhancing mass posterior to the left thyroid gland. Differential includes exophytic thyroid nodule, parathyroid mass and lymphadenopathy. Thyroid ultrasound recommended.
Bilateral adrenal hyperplasia. Stable
Mild bilateral renal atrophy.
Mild abdominopelvic ascites.
Moderate diffuse bladder wall thickening. This can be seen with cystitis or bladder outlet obstruction.
Mild prostate hypertrophy.
Findings suggestion moderate volume overload or third spacing.
T7 and T11 compression fractures. Stable. L1 area not imaged previously for comparison

1. Left mainstem bronchus obstruction from secretions
Bilateral pleural effusion
Compression atelectasis
Pseudomonal aspiration pneumonia
- Patient with history of CVA/PEG tube and on tube feeding
- Patient was on cefepime, has been discontinued on pulmonology recommendation as there is no supporting evidence of ongoing pneumonia
- Patient underwent left-sided thoracentesis of 1.45 L of transudative fluid. Fluid analysis reports reviewed. Fluid culture has been negative for any growth
- Patient underwent right-sided thoracentesis of 1.1 L of transudative fluid.
- Repeat chest x-ray showing left-sided pleural effusion reaccumulating with concern effusion loculated
- May required repeat evaluation for one or both sided thoracentesis
- Continues to have poor cough reflex and excessive secretion. Deep suction been done periodically overnight with significant secretion
- CPT added to treatment regimen to help pulm toileting
- Respiratory culture growing pansensitive Pseudomonas, maintain on Zosyn
- Chest x-ray continue to show residual left-sided effusion with some loculation will discuss with pulmonology
2. Cardiac arrest - Asystole
Vent dependent respiratory failure - resolved
Acute hypoxic resp failure
- possible multifactorial with hypoxia from pulmonary congestion with bradycardia/hypercalcemia
- required 1 epi and 1 round CPR with ROSC achieved in 3min
- Intubated during the code
- Post intubation CXR reviewed persistent homogeneous retrocardiac left lower lobe opacity.
3. Elevated troponin
Rule out NSTEMI
- Cardiology is following
-Troponin max of 10.7
- On asa/heparin drip
-TTE showing EF 50-55%
4. Acute on chronic heart failure with reduced ejection fraction
- proBNP>[id number]
- Echo for 06/22/24
- volume management by HD
- Patient makes some urine and currently on IV Bumex as well
- Continue hold Carvedilol due to severe bradycardia
5. Sinus bradycardia with first-degree block
- Patient heart rate was in 30s and patient was encephalopathic on morning of 06/22. started dopamine empirically despite hypoxia/hypoglycemia was likely reason for encephalopathy.
- Hypercalcemia possibly playing role
- Heart rate improved with improvement of hypercalcemia, pacemaker may not be warranted at this stage, continue monitoring
6. Hypercalcemia - Improving
Parathyroid adenoma
Vit D deficiency
- Difficult to explain, max of 13.7, suspecting tertiary hyperparathyroidism
- Patient on Cinacalcet 120mg MOWE before admission, dose increased to Cinacalcet 90 mg daily yesterday - good response with Ca down trended today
- PTH significantly elevated - 1022, Ca 12.4 today
- CT c/a/p showing enlarged parathryoid gland
- Got pamidronate 30mg x1 inj/ f/u response
- Thyroid US showing parathyroid adenoma -will benefit with eventual parathyroidectomy if family preferred and clinically appropriate
- Vit d 25 OH - 20 , discussed with oncology rep specialist replacement would be beneficial
7. History of CVA with left hemiparesis, dysarthria and dysphagia
PEG TF dependent
- TF resumption per hat conditioner
8. ESRD on HD ( MWF )
Right IJ Hemodialysis Catheter
Anemia of Chronic Disease
- had full HD on 06/19/24
- Continue Renvela for hyperphosphatemia
- PAPITO to be provided for anemia
- Got 1 unit PRBC for hemoglobin of 6.9. Patient developed pulmonary congestion after finishing three fourths of blood transfusion yesterday.
- No reported luminal blood loss. Occult stool test neg
- Heparin drip has stopped at this point
- S/p 2 units of PRBC this admission. Continue providing PRBC as needed for hemoglobin less than 7
Severe calcific atherosclerotic plaque in the coronary arteries on CT Chest
Right chronically impacted humeral neck fracture -imaging finding on CT chest, needs to be verified with previous records
Hyponatremia
Recent Flu
Benign Hypertension
Hyperlipidemia
Carotid artery disease s/p R CEA
BPH
Depression
DVT Prophylaxis: Heparin Drip.
Code Status: DNR/DNI -hat conditioner discussed with family on 06/25
Daughter Tawnya updated on 06/22 and 06/23 06/27
06/24 extensive discussion with daughter at bedside. All questions answered regarding event leading up to cardiac arrest and further prognosis moving forward. After lengthy discussion family agreed for patient to be switched to DNI once extubated.
I have clarified to patient family that patient have permanent risk of repeated aspiration/mucous plugging in light of history of stroke/altered physiology at this point. If patient continues to have recurrent issues with pulmonary
aspiration/hypoxia patient would be appropriate for hospice eventually.
Patient continues to remain high risk of aspiration as have significant secretions which patient not able to clear.
With improvement Hyperglycemia patient bradycardia is improved.
Will continue monitoring 24-48 hrs of IMU monitoring before downgrading further.
Anticipated Discharge: > 48 hours
Subjective/Interval History
-
Date of Service: June 27, 2024
Patient mentation better
Continues to have significant heavy secretions
Remains on oxygen through nasal cannula
Afebrile overnight
Heart rate slowly improving
Objective Data
-
Labs:
Laboratory Results
06/27/24
03:30
WBC 8.3
Hgb 9.3 L D
Hct 28.2 L
Plt Count 164
Sodium 136
Potassium 3.5
Chloride 97 L
Carbon Dioxide 27
BUN 30 H
Creatinine 2.3 H
Glucose 101 H
Calcium 11.2 H
Vital Signs:
Vital Signs
Temp Pulse Resp BP Pulse Ox
97.5 F 59 20 140/61 92
06/27/24 11:14 06/27/24 11:00 06/27/24 11:00 06/27/24 11:00 06/27/24 11:00
I&O
06/26/24 06/27/24 06/28/24
06:59 06:59 06:59
Intake Total 2054 [id number]
Balance [id number]
Review of Systems
-
Respiratory: Reports Cough
Cardiac: Reports No Symptoms
Abdomen/GI: Reports No Symptoms
Physical Exam
-
General: Comfortable
HEENT: Other (o2 through NC)
Respiratory: Rhonchi (increased secretion)
Cardiac: Regular Rhythm and S1/S2; Negative Murmur or Rub
GI: Soft, Nontender and Peg Tube
Musculoskeletal: No Edema
Neuro: Awake, Alert and No Motor Deficits
Psych: Calm
--- NOTE | 2024-06-27 15:14 | CM ---
Received consult to discuss hospice with family. Placed a call to patient's daughter and provided overview of hospice philosophy however advised that once an agency is chosen, there will be greater detail of information. Patient's daughter stated
that patient was at [facility] and receiving dialysis. Family was not happy with his care there and does not want him to return. Patient's daughter stated that she can not have him return home as no one would be able to stay with him and no
family can accommodate him at their homes. As this is the case, they would like for a facility where he could go specifically for hospice care. Explanation provided that room and board would be a private pay expense. Patient's daughter expressed
appreciation for call and stated that she will talk to patient and the rest of family to determine next steps. She stated that she will f/u with CM on Saturday after determination has been made regarding whether they would like for patient to receive
hospice services and where.
Plan: Case management will continue to follow and assist with discharge planning. If stable to transfer, Hospice in a SNF. Family will provide their choices.
[2024-06-27] MEDS: CRESTOR 20 MG TUBE (17:16)
[2024-06-27] MEDS: COZAAR 25 MG TUBE (18:36)
[2024-06-27 19:01] LABS: Glucose - Point of Care 105 mg/dl (70-99)
--- NOTE | 2024-06-27 20:05 | PTCARENOTE ---
Assessed patient. Noted that he vomited. Tube feeding turned off. Oropharyngeal suctioned for large amount of thick norris white secretions, oral care. Complete cares given, CHG cloth bath, complete linen change. Right lung coarse with crackles and
rhonchi t/o, left lung with coarse crackles, difficult to auscultate heart sounds due to breath sounds. Abdomen soft, PEG site cleansed, clamped after TF held. Rectal trumpet in place for loose liquid brown stools. Anuric. Patient with mild
generalized anasarca, left arm 2+ edema, Bilateral ankle edema trace, right arm edema 1+. Sacral dressing CDI. Noted that sats dropped to 79% on 2L/nc. Increased oxygen to 6L/nc. Respiratory therapist notified. Respiratory treatment given and CPT
via bed. Sats improved to 97%. Fani Aguiar APN notified of concern for aspiration. On IV ABx. No new orders but agrees with interventions provided. Turned every 2 hours. Bed in low and locked position, call pérez within reach.
[2024-06-27] MEDS: MELATONIN 5 MG TUBE (21:24)
[2024-06-27] MEDS: FOLVITE 2 MG TUBE (21:24)
[2024-06-28] VITALS (21 sets, daily range): BP systolic 104–146; BP diastolic 67–87; BMI 21.8
[2024-06-28] MEDS: ZOSYN 50 IV ×3 (01:50→17:13)
[2024-06-28 03:00] LABS: Glucose - Point of Care 102 mg/dl (70-99)
[2024-06-28] MEDS: VENTOLIN NEBULES 2.5 MG INH ×4 (03:09→19:47)
[2024-06-28] MEDS: ROBITUSSIN DM 10 ML PO (03:37)
[2024-06-28 04:19] LABS: Hematocrit 25.5 % (39.0-52.0); Hemoglobin 8.5 g/dL (13.0-18.0); Mean Corp Hgb Conc. 33.3 g/dL (33.0-37.0); Mean Corpuscular Hgb 30.5 pg (27.0-31.0); Mean Corpuscular Volume 91.4 fL (80.0-94.0); Mean Platelet Volume 8.6 fL (7.4-10.4); Platelet Count 173 10^3/uL (130-400); Red Blood Cell Count 2.79 10^6/uL (4.70-6.10); Red Cell Dist. Width 15.1 % (11.5-14.5); White Blood Cell Count 12.6 10^3/uL (4.8-10.8)
[2024-06-28 04:41] LABS: Blood Urea Nitrogen 42 mg/dl (9-20); Carbon Dioxide 28 mmol/L (22-30); Chloride 97 mmol/L (98-107); Estimated Creatinine Clearance 21 ml/min; Glucose 84 mg/dl (70-99); Potassium 3.6 mmol/L (3.5-5.1); Sodium 136 mmol/L (135-145); eGFR 19.57
--- NOTE | 2024-06-28 07:08 | PTCARENOTE ---
Report given to Deepak pena RN. Questions answered.
[2024-06-28] MEDS: SODIUM CHLORIDE 3% FOR INHALATION 1 VIAL INH ×3 (07:26→19:47)
--- NOTE | 2024-06-28 07:30 | PTCARENOTE ---
report received. aaox2. nsr w/bb. pulse ox 96% 4lnc. lungs coarse and crackles rajani L side. rectal trumpet functioning properly. pt turned and assessed. call pérez in reach. daughter updated via phone. will monitor.
[2024-06-28] MEDS: PREVACID 15 MG TUBE (07:50)
[2024-06-28] MEDS: SENSIPAR 90 MG TUBE (07:50)
[2024-06-28] MEDS: WELLBUTRIN REGULAR RELEASE 150 MG TUBE ×2 (07:50→21:00)
[2024-06-28] MEDS: LOW STRENGTH ASPIRIN 81 MG TUBE (07:51)
[2024-06-28] MEDS: HEPARIN 5000 UNITS SC ×2 (07:52→21:00)
[2024-06-28] MEDS: MIRALAX TUBE (07:52)
[2024-06-28 09:39] LABS: PTH Related Peptide LC-MS/MS 5.4 pmol/L (0.0-2.3)
--- NOTE | 2024-06-28 10:10 | W.PN.PUL3 ---
Today's Communication / Plan
-
Wean oxygen as tolerated
Aspiration precautions
Antibiotics
Mucus clearing maneuvers
Large L-sided pleural effusion --> IR consulted for repeat thoracentesis (first on 11/21/2024)
Strict I/O
Consider palliative care/hospice
Pulmonary services will continue to follow
Assessment
-
Patient is a 60-year-old gentleman with known history of carotid artery disease status post right CEA in the past, end-stage renal disease on hemodialysis, hypertension, hyperlipidemia, congestive heart failure with reduced ejection fraction of 40
to 45% as well as history of stroke in the past, who was [facility] for worsening shortness of breath. Patient reportedly has been feeling short of breath over the last couple of weeks which has been progressively
getting worse. Reported diagnosis of low enzymes patient has been on Tamiflu. In view of worsening respiratory status he was transferred to the emergency room for further workup. Imaging in the emergency room showing showed near complete collapse
of the left lung with large pleural effusion as well as moderate pleural effusion on the right side. Patient also was noted to have significantly elevated troponin along with sinus bradycardia. Patient was started on broad-spectrum antibiotics,
aspirin as well as heparin drip for suspected NSTEMI and was admitted to hospitalist service.
In view of large effusion, interventional radiology and pulmonary service were requested for further input.
Mucous plug obstructing left bronchus
Acute on chronic HFpEF
Cardiopulmonary arrest-asystole requiring CPR/epinephrine 06/23/24-family reversed DNR status
Intubated 06/23/24
Extubated 06/25/2024
Bilateral pleural effusions due to acute decompensated heart failure
Elevated troponin
Sinus bradycardia
Hypotension
Hypercalcemia
End-stage renal disease on hemodialysis Saturday
Past Medical History: Reports CHF, GERD, HTN, Hypercholesterolemia, Hypothyroidism and Renal Failure (ESRD on HD ( MWF) )
Additional Past Medical History:
PEG tube dependent nutrition and for medication
Past Surgical History: Reports Other (PEG placement )
Other medical issues:
- NSTEMI. No chest pain. on ASA/Heparin. Cardiology service on case
- History of CVA with left hemiparesis, dysarthria and dysphagia. Patient is not n.p.o. at baseline and is on PEG tube feeding
- Sinus bradycardia with first degree heart block. Cardiology service in place. Coreg on hold.
- End-stage renal disease, on hemodialysis. Patient has a right upper chest permacath in place.
Plan
Tolerated extubation 06/25/2024
His CXR checked on 06/27 shows improvement in terms of aeration of left lung, however he has an enlarging left-sided pleural effusion seen on chest ultrasound from today (06/28)
IR consulted for left-sided thoracentesis
Continue with supplemental oxygen to maintain SpO2 >90-94%, and wean down as tolerated
Continue aspiration precautions
Difficulties mobilizing secretions- continue vest therapy, nasal trumpet, deep suctioning, mucolytics with nebulized 3% TID
Nebulizers at as needed
CT chest abdomen and pelvis 06/24/24-2.8 cm soft tissue mass left lower neck, moderate bilateral pleural effusions right greater than left, no abnormal pleural-parenchymal pulmonary masses, mild right lower lobe consolidation as well as left lower
lobe consolidation concerning for pneumonia, bilateral adrenal hyperplasia, mild prostate hypertrophy, T7 and T11 compression fractures
No indication for bronchoscopy-respiratory therapy not reporting any plugs and recent CT chest on 06/24 without endobronchial mucus/lesions
Improved after bilateral thoracenteses-left - 06/21/2024-1450 mL, right 1100 mL-transudative on both thoracenteses procedures
Monitor for fluid reaccumulation
CT chest with moderate right pleural effusion-consider repeat thoracentesis if does not improve with hemodialysis
Left-sided chest ultrasound today (06/28) shows a large left-sided pleural effusion to IR consulted as stated above
Nephrology following-correspondence reviewed
Hemodialysis per nephrology
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
Check ionized calcium tomorrow
Trend Hb
Transfuse as needed to keep Hb>7g/dL-on dialysis
Monitor for acute blood loss-no obvious source for blood loss
He was transfused 2 units packed red blood cells thus far: 1 unit on 06/23/2024 and last unit on 06/26/2024
Cardiology correspondence reviewed-signed off on 06/27
Monitor HR - keep >50
NSTEMI noted
Per cardiology, no indication for pacemaker at this time.
Echocardiogram reviewed
Sputum culture 06/23/24-grew Pseudomonas aeruginosa which was pansensitive
Trend WBC and monitor for fevers
Empiric antibiotics-Zosyn initiated on 06/24-finish finite course--will time out after 7 days
Tube feeds as tolerated
Aspiration precautions
Head of bed elevation
Monitor bradyarrhythmia
Dopamine discontinued
Pressors as needed
DVT prophylaxis-on heparin SQ
GI prophylaxis-on Prevacid
Nutrition-tube feeds with aspiration precautions
Bedside range of motion
Reviewed with Dr. Benedict Villarreal
Consider palliative care/hospice
Pulmonary service will continue to follow along. Continue IMU level care.
Family meeting
Dr. Joseph 06/25/2024-Updated Tawnya MIRNAEula and the patient's [id number] of Tawnya-at length-reevaluated the patient at the bedside, tolerating spontaneous breathing trial
Arterial blood gas reviewed-patient normally ready for extubation-secretions manageable, sedation weaned, hemodynamically stable with good ABG
Clear plan in regards to reintubation/CPR if the patient deteriorates after extubation which I told them was a distinct possibility with his mucus
Multiple questions were answered including long-term prognosis, etc.
Tawnya as well as patient's ex- are all in firm agreement-extubate, do not reintubate, no CPR, shocking or advanced cardiac life support processes
We will respect their wishes
I will communicate this with primary team, respiratory therapy and critical care nursing
Data:
CXR 05/2024: 1. Near complete opacification of the left hemithorax which is likely secondary to a large left pleural effusion and airspace consolidation (compressive atelectasis or pneumonia).
2. Moderate ground-glass opacity in the infrahilar right lower lung which could be subsegmental atelectasis or pneumonia.
3. Right IJ hemodialysis catheter in place.
4. Chronic impacted fracture of the right humeral neck.
CT Chest 05/2024: 1. Complete endobronchial obstruction of the left mainstem bronchus containing layering secretions. SEVERE NEAR COMPLETE AIRSPACE CONSOLIDATION of the LEFT UPPER and LOWER LOBES (either atelectasis or pneumonia).
2. LARGE LEFT PLEURAL EFFUSION.
3. Moderate to large right pleural effusion.
4. Moderate to severe cardiomegaly.
5. Severe calcific atherosclerotic plaque in the coronary arteries.
6. Right IJ hemodialysis catheter in place.
7. Chronic impacted fracture of the right proximal humerus.
Total time spent today was 37 minutes for this encounter. Time includes reviewing laboratory test/imaging results, reviewing pertinent medical records, obtaining and reviewing medical history, performing an appropriate exam, ordering medications,
tests and procedures. Time also includes documentation of this encounter, coordinating patient care and communicating with other healthcare professionals. Total time does not include separately billed tests performed on this date of service.
Subjective Data
-
Date of Service:
Date of Service: June 28, 2024
Chief Complaint: Pulmonary Follow Up
Subjective:
Patient seen this morning. Easily awakened, but still appears fatigued. Heart rate 48, saturating 100% on 4 L/min, and BP 131/70. He is in no acute distress.
Review of Systems
General: Other (Unable to obtain given patient's acute clinical status)
Objective Data
Data Reviewed
Vital Signs / I&O / Oxygen:
Vital Signs
Temp Pulse Resp BP Pulse Ox
98.0 F 58 26 142/77 97
06/28/24 07:18 06/28/24 07:27 06/28/24 07:27 06/28/24 06:00 06/28/24 07:27
Intake and Output
06/27/24 06/28/24 06/29/24
06:59 06:59 06:59
Intake Total 1805 / 1805 1240 / 1240
Output Total 150 / 150
Balance 1805 / 1805 1090 / 1090
SaO2 [CPAP] 99
SaO2 [A/C] 99
SaO2 97
Nasal Cannula flow liters per 4
minute
Physical Exam
General: Respiratory Distress (negative), Comfortable, Chills (negative) and Sweats (negative)
HEENT: Normocephalic, Anicteric and Moist Mucous Membranes
Cardiovascular: S1-S2 and Peripheral Edema (Trace lower extremity edema bilaterally)
Respiratory: Wheeze (negative), Crackles (Bilaterally), Rhonchi (Bilaterally) and Non-Labored Respirations
GI: Soft, Non Distended, Non Tender and Normal Bowel Sounds
Neurology: Tremors (negative) and Lethargic (Easily arousable to voice and following commands)
Skin: Warm, Dry, Cyanosis (negative) and Jaundice (negative)
Labs/Micro/Reports
Lab Data
06/28/24 03:57
06/28/24 03:57
Microbiology
06/27/24 09:38 Feces/Stool C. difficile GDH Antigen & Toxins - Final
C. difficile antigen positive, toxin negative.
Clostridium difficile present, but toxin not detected.
Patient may be a carrier, colonized with nontoxinogenic
strain or the level of toxin in sample is below detection
limits. This information should be used in conjunction with
the patient's clinical history.
06/23/24 21:53 Sputum Respiratory Culture - Final
Pseudomonas aeruginosa
06/23/24 21:53 Sputum Gram Stain - Final
06/20/24 20:17 Blood/Venous Blood Culture - Final
No Growth - Final Report
06/20/24 20:17 Blood/Venous Blood Culture - Final
No Growth - Final Report
06/22/24 13:54 Pleural Fluid Body Fluid Culture - Final
No Growth After 72 Hours
06/22/24 13:54 Pleural Fluid Gram Stain - Final
--- NOTE | 2024-06-28 10:14 | W.PN.NEPH.PH ---
Today's Communication / Plan
-
Dialysis Saturday
Continue Sensipar
Assessment/Plan
-
Impression:
ESRD MWF
Hypoxia/left lung atelectasis versus pneumonia
Large left pleural effusion s/p thoracentesis 06/21
CHF
Anemia
Hypertension hx
Hyponatremia
Secondary hyperparathyroidism
Hyperphosphatemia
PEG
Non-ST elevation NH
History of stroke with subsequent left hemiparesis dysarthria and dysphagia
Tunneled right HD IJ catheter
Chronic impacted right proximal humerus fracture
hypercalcemia
Plan:
\\
sensipar to 90mg increased to daily 06/27... Was getting twice a week outpatient
Calcium remains elevated at 12.4, pamidronate provided 06/23 and using dialysis on 2 calcium bath= improving
Hypercalcemia workup in process, including PTH RP: pth 1022: likely some component of primary hyperparathyroidism in play (soft tissue mass posterior to upper left thyroid gland noted on CT)
CT reviewed;: Large left pleural effusion moderate to right pleural effusion severe cardiomyopathy
now off Bumex,
Transfused packed red blood cells 06/23
Extubated
Tube feeds on hold with nausea and vomiting overnight= from increased dose of Sensipar??
Dialysis Saturday/see order
critical care time 31 minutes
-
-
Date of Service: June 28, 2024
CC / HPI / ROS
-
Chief Complaint:
ESRD
History of Present Illness:
hemodynamically stable
pulse remains bradycardic
critically ill in ICU
Calcium remains elevated 12.4
hgb stable
Review of Systems:
Extubated
No chest pain or shortness of breath
No fever
Nausea vomiting overnight x 2= tube feeds held
Labs
-
Labs:
WBC 12.6 10^3/uL (4.8-10.8) H 06/28/24 03:57
RBC 2.79 10^6/uL (4.70-6.10) L 06/28/24 03:57
Hgb 8.5 g/dL (13.0-18.0) L 06/28/24 03:57
Hct 25.5 % (39.0-52.0) L 06/28/24 03:57
Plt Count 173 10^3/uL (130-400) 06/28/24 03:57
Sodium 136 mmol/L (135-145) 06/28/24 03:57
Potassium 3.6 mmol/L (3.5-5.1) 06/28/24 03:57
Chloride 97 mmol/L (98-107) L 06/28/24 03:57
Carbon Dioxide 28 mmol/L (22-30) 06/28/24 03:57
BUN 42 mg/dl (9-20) H 06/28/24 03:57
Creatinine 3.3 mg/dL (0.7-1.3) H 06/28/24 03:57
eGFR 19.57 06/28/24 03:57
Glucose 84 mg/dl (70-99) 06/28/24 03:57
Calcium 11.0 mg/dl (8.4-10.2) H 06/28/24 03:57
Phosphorus 2.5 mg/dl (2.5-4.5) 06/22/24 12:03
Dwy-W-Tiqbtmbyrox Pept > 29974 pg/ml 06/20/24 18:13
Albumin 2.3 g/dl (3.5-5.0) L 06/25/24 04:13
Physical Exam
-
Vital Signs:
Vital Signs
Temp Pulse Resp BP Pulse Ox
98.0 F 58 26 142/77 97
06/28/24 07:18 06/28/24 07:27 06/28/24 07:27 06/28/24 06:00 06/28/24 07:27
Cardiovascular:: Regular rate and rhythm (Bradycardia)
Respiratory:: Bilateral: Coarse
Lung Excursion:: Normal
Abdomen:: Nontender and Soft
Bowel Sounds:: Decreased
Extremity Edema:: None: Bilateral:
Bender Catheter: No
--- NOTE | 2024-06-28 10:18 | W.PN.HOSP.TC ---
Today's Communication/Plan
-
see note
Assessment / Plan
Assessment / Plan
CT chest
1. Complete endobronchial obstruction of the left mainstem bronchus containing layering secretions. SEVERE NEAR COMPLETE AIRSPACE CONSOLIDATION of the LEFT UPPER and LOWER LOBES (either atelectasis or pneumonia).
2. LARGE LEFT PLEURAL EFFUSION.
3. Moderate to large right pleural effusion.
4. Moderate to severe cardiomegaly.
5. Severe calcific atherosclerotic plaque in the coronary arteries.
6. Right IJ hemodialysis catheter in place.
7. Chronic impacted fracture of the right proximal humerus.
CT c/a/p
Moderate bilateral pleural effusions, right larger than left. Both improved.
Mild right lower lobe consolidation. Stable. Moderate left lower lobe consolidation. Improved. Both concerning for pneumonia.
Mild cardiomegaly. Improved.
Enhancing mass posterior to the left thyroid gland. Differential includes exophytic thyroid nodule, parathyroid mass and lymphadenopathy. Thyroid ultrasound recommended.
Bilateral adrenal hyperplasia. Stable
Mild bilateral renal atrophy.
Mild abdominopelvic ascites.
Moderate diffuse bladder wall thickening. This can be seen with cystitis or bladder outlet obstruction.
Mild prostate hypertrophy.
Findings suggestion moderate volume overload or third spacing.
T7 and T11 compression fractures. Stable. L1 area not imaged previously for comparison

1. Left mainstem bronchus obstruction from secretions
Bilateral pleural effusion
Compression atelectasis
Pseudomonal aspiration pneumonia
- Patient with history of CVA/PEG tube and on tube feeding
- Patient was on cefepime, has been discontinued on pulmonology recommendation as there is no supporting evidence of ongoing pneumonia
- Patient underwent left-sided thoracentesis of 1.45 L of transudative fluid. Fluid analysis reports reviewed. Fluid culture has been negative for any growth
- Patient underwent right-sided thoracentesis of 1.1 L of transudative fluid.
- CPT added to treatment regimen to help pulm toileting
- Respiratory culture growing pansensitive Pseudomonas, maintain on Zosyn
- Chest x-ray continue to show residual left-sided effusion with some loculation
- Patient had episode of nausea/vomiting overnight with concern of repeat aspiration. Patient oxygen requirement is increased to 4 L of nasal cannula. Repeat chest x-ray has been ordered today.
- Continues to have poor cough reflex and excessive secretion. Deep suction been done periodically overnight with significant secretion
- Discussed with pulmonology and left chest ultrasound has been ordered to check for reaccumulated possible complex pleural effusion
2. Cardiac arrest - Asystole
Vent dependent respiratory failure - resolved
Acute hypoxic resp failure
- possible multifactorial with hypoxia from pulmonary congestion with bradycardia/hypercalcemia
- required 1 epi and 1 round CPR with ROSC achieved in 3min
- Intubated during the code
- Post intubation CXR reviewed persistent homogeneous retrocardiac left lower lobe opacity.
3. Elevated troponin
Rule out NSTEMI
-Troponin max of 10.7
-Heparin drip discontinued at this point.
-TTE showing EF 50-55%
-No plan for any cath at this point
4. Acute on chronic heart failure with reduced ejection fraction
- proBNP>[id number]
- Echo for 06/22/24
- volume management by HD
- Patient makes some urine and currently on IV Bumex as well
- Continue hold Carvedilol due to severe bradycardia
5. Sinus bradycardia with first-degree block - improving
- Patient heart rate was in 30s and patient was encephalopathic on morning of 06/22. started dopamine empirically despite hypoxia/hypoglycemia was likely reason for encephalopathy.
- Hypercalcemia possibly playing role
- Heart rate improved with improvement of hypercalcemia, pacemaker may not be warranted at this stage, continue monitoring
6. Hypercalcemia - Improving
Parathyroid adenoma
Vit D deficiency
- Difficult to explain, max of 13.7, suspecting tertiary hyperparathyroidism
- Patient on Cinacalcet 120mg MOWE before admission, dose increased to Cinacalcet 90 mg daily on 06/27
- PTH significantly elevated - 1022, Ca 12.4 today
- CT c/a/p showing enlarged parathryoid gland
- Got pamidronate 30mg x1 inj/ f/u response
- Thyroid US showing parathyroid adenoma -will benefit with eventual parathyroidectomy if family preferred and clinically appropriate
- Vit d 25 OH - 20 , discussed with rn care manager replacement would be beneficial
7. History of CVA with left hemiparesis, dysarthria and dysphagia
PEG TF dependent
- Episode of nausea/vomiting today, tube feed put on hold again
- As needed Zofran, repeat EKG ordered and if patient symptoms improve will need to be started TF slow rate, monitor blood glucose while off tube feed
8. ESRD on HD ( MW )
Right IJ Hemodialysis Catheter
Anemia of Chronic Disease
- had full HD on 06/19/24
- Continue Renvela for hyperphosphatemia
- PAPITO to be provided for anemia
- Got 1 unit PRBC for hemoglobin of 6.9. Patient developed pulmonary congestion after finishing three fourths of blood transfusion yesterday.
- No reported luminal blood loss. Occult stool test neg
- Heparin drip has stopped at this point
- S/p 2 units of PRBC this admission. Continue providing PRBC as needed for hemoglobin less than 7
Severe calcific atherosclerotic plaque in the coronary arteries on CT Chest
Right chronically impacted humeral neck fracture -imaging finding on CT chest, needs to be verified with previous records
Hyponatremia
Recent Flu
Benign Hypertension
Hyperlipidemia
Carotid artery disease s/p R CEA
BPH
Depression
DVT Prophylaxis: Heparin Drip.
Code Status: DNR/DNI -project management consultant discussed with family on 06/25
Daughter Tawnya updated on 06/22 and 06/23 06/27
06/24 extensive discussion with daughter at bedside. All questions answered regarding event leading up to cardiac arrest and further prognosis moving forward. After lengthy discussion family agreed for patient to be switched to DNI once extubated.
I have clarified to patient family that patient have permanent risk of repeated aspiration/mucous plugging in light of history of stroke/altered physiology at this point. If patient continues to have recurrent issues with pulmonary
aspiration/hypoxia patient would be appropriate for hospice eventually.
Patient continues to remain high risk of aspiration as have significant secretions which patient not able to clear.
Total time spent L 54 mins
Anticipated Discharge: > 48 hours
Subjective/Interval History
-
Date of Service: June 28, 2024
Patient had episode of vomiting overnight, suspicion of some aspiration
Patient oxygen requirement is increased to 4 L through nasal cannula today
Complains of feeling nauseous in the morning again
Remains afebrile
Remains bradycardic with heart rate in 50s 60s
Objective Data
-
Labs:
Laboratory Results
06/28/24
03:57
WBC 12.6 H
Hgb 8.5 L
Hct 25.5 L
Plt Count 173
Sodium 136
Potassium 3.6
Chloride 97 L
Carbon Dioxide 28
BUN 42 H
Creatinine 3.3 H
Glucose 84
Calcium 11.0 H
Vital Signs:
Vital Signs
Temp Pulse Resp BP Pulse Ox
98.0 F 58 26 142/77 97
06/28/24 07:18 06/28/24 07:27 06/28/24 07:27 06/28/24 06:00 06/28/24 07:27
I&O
06/27/24 06/28/24 06/29/24
06:59 06:59 06:59
Intake Total 1805 / 1805 1240 / 1240
Output Total 150 / 150
Balance 1805 / 1805 1090 / 1090
Review of Systems
-
Respiratory: Reports Cough and Trouble Breathing
Cardiac: Reports No Symptoms
Abdomen/GI: Reports Nausea and Vomiting
Physical Exam
-
General: Comfortable
HEENT: Oxygen (4L NC)
Respiratory: Rhonchi (increased secretion)
Cardiac: Regular Rhythm and S1/S2; Negative Murmur or Rub
GI: Soft, Nontender and Peg Tube
Musculoskeletal: No Edema
Neuro: Awake, Alert and No Motor Deficits
Psych: Calm
[2024-06-28 12:13] LABS: Glucose - Point of Care 85 mg/dl (70-99)
[2024-06-28 14:01] LABS: Glucose - Point of Care 84 mg/dl (70-99)
--- NOTE | 2024-06-28 15:11 | PTCARENOTE ---
tf restarted at 20cc/hr.
[2024-06-28] MEDS: ZOFRAN 4 MG IV (17:13)
[2024-06-28] MEDS: COZAAR 25 MG TUBE (17:13)
[2024-06-28] MEDS: CRESTOR 20 MG TUBE (17:13)
--- NOTE | 2024-06-28 21:00 | PTCARENOTE ---
card clothier, pt aaox3, denies pain. SB HR 50s, 1st degree HB, PVCs. R midline WNL. Sat 96% on 2LNC. RT intact. POC discussed, call pérez with pt.
[2024-06-28] MEDS: FOLVITE 2 MG TUBE (21:14)
[2024-06-28] MEDS: MELATONIN 5 MG TUBE (21:14)
[2024-06-29] VITALS (51 sets, daily range): BP systolic 56–153; BP diastolic 62–83; BMI 22.2
[2024-06-29] MEDS: ZOSYN 50 IV ×2 (02:41→09:26)
[2024-06-29 03:17] LABS: Hematocrit 24.7 % (39.0-52.0); Hemoglobin 8.2 g/dL (13.0-18.0); Mean Corp Hgb Conc. 33.2 g/dL (33.0-37.0); Mean Corpuscular Volume 90.5 fL (80.0-94.0); Mean Platelet Volume 8.6 fL (7.4-10.4); Platelet Count 173 10^3/uL (130-400); Red Blood Cell Count 2.73 10^6/uL (4.70-6.10); Red Cell Dist. Width 15.1 % (11.5-14.5); White Blood Cell Count 9.4 10^3/uL (4.8-10.8)
[2024-06-29 03:21] LABS: Ionized Calcium 1.63 mMOL/L (1.15-1.33)
[2024-06-29 03:41] LABS: Blood Urea Nitrogen 50 mg/dl (9-20); Calcium 11.3 mg/dl (8.4-10.2); Carbon Dioxide 27 mmol/L (22-30); Chloride 97 mmol/L (98-107); Estimated Creatinine Clearance 18 ml/min; Glucose 89 mg/dl (70-99); LDH 112 U/L (120-246); Potassium 3.9 mmol/L (3.5-5.1); Sodium 134 mmol/L (135-145); Total Protein 5.2 g/dl (6.3-8.2); eGFR 16.01
[2024-06-29 06:31] LABS: Glucose - Point of Care 89 mg/dl (70-99)
[2024-06-29] MEDS: VENTOLIN NEBULES 2.5 MG INH ×3 (07:08→21:10)
[2024-06-29] MEDS: SODIUM CHLORIDE 3% FOR INHALATION 1 VIAL INH ×3 (07:08→21:10)
--- NOTE | 2024-06-29 07:30 | PTCARENOTE ---
Assumed care of patient. Pt rec'd A&Ox3...occasionally forgetful. [place]. TAM's but left sided weakness noted from prior CVA. S1 S2 reg and distant w/ sinus jay on monitor. PVC's noted. 1st degree AVB w/ BBC. Weak PP. +2 generalized edema.
Heels elevated on pillows. Rec'd on 2L N/C..sats 94%. Lungs diminished and coarse throughout. Suctioned orally for scant thick norris secretions. Pt able to use yankauer. Peg tube w/ nepro infusing. Anuric. Intact sacral foam. Right midline.
[facility] HD cath...for HD @ 1700 today. Q8H accucheck order. VS documented. Call pérez within reach. Will continue to monitor.
--- NOTE | 2024-06-29 07:55 | PTCARENOTE ---
Pt taken to IR for thoracentesis.
--- NOTE | 2024-06-29 08:24 | W.PN.HOSP.TC ---
Today's Communication/Plan
-
See plan
Assessment / Plan
Assessment / Plan
Physical Exam
General: Comfortable
HEENT: Oxygen (2L NC)
Respiratory: Rhonchi (increased secretion)
Cardiac: Regular Rhythm and S1/S2; Negative Murmur or Rub
GI: Soft, Nontender and Peg Tube
Musculoskeletal: No Edema
Neuro: Awake, Alert and No Motor Deficits
Psych: Calm

CT chest
1. Complete endobronchial obstruction of the left mainstem bronchus containing layering secretions. SEVERE NEAR COMPLETE AIRSPACE CONSOLIDATION of the LEFT UPPER and LOWER LOBES (either atelectasis or pneumonia).
2. LARGE LEFT PLEURAL EFFUSION.
3. Moderate to large right pleural effusion.
4. Moderate to severe cardiomegaly.
5. Severe calcific atherosclerotic plaque in the coronary arteries.
6. Right IJ hemodialysis catheter in place.
7. Chronic impacted fracture of the right proximal humerus.
CT c/a/p
Moderate bilateral pleural effusions, right larger than left. Both improved.
Mild right lower lobe consolidation. Stable. Moderate left lower lobe consolidation. Improved. Both concerning for pneumonia.
Mild cardiomegaly. Improved.
Enhancing mass posterior to the left thyroid gland. Differential includes exophytic thyroid nodule, parathyroid mass and lymphadenopathy. Thyroid ultrasound recommended.
Bilateral adrenal hyperplasia. Stable
Mild bilateral renal atrophy.
Mild abdominopelvic ascites.
Moderate diffuse bladder wall thickening. This can be seen with cystitis or bladder outlet obstruction.
Mild prostate hypertrophy.
Findings suggestion moderate volume overload or third spacing.
T7 and T11 compression fractures. Stable. L1 area not imaged previously for comparison

1. Left mainstem bronchus obstruction from secretions
Bilateral pleural effusion
Compression atelectasis
Pseudomonal aspiration pneumonia
- Patient with history of CVA/PEG tube and on tube feeding
- Patient was on cefepime, has been discontinued on pulmonology recommendation as there is no supporting evidence of ongoing pneumonia
- Patient underwent left-sided thoracentesis of 1.45 L of transudative fluid. Fluid analysis reports reviewed. Fluid culture has been negative for any growth
- Patient underwent right-sided thoracentesis of 1.1 L of transudative fluid.
- Patient underwent left-sided thoracentesis of 1.75 L on 06/29/24.
- CPT added to treatment regimen to help pulm toileting
- Respiratory culture growing pansensitive Pseudomonas, maintain on Zosyn
- Chest x-ray continue to show residual left-sided effusion with some loculation
- Patient had episode of nausea/vomiting recently with concern of repeat aspiration and oxygen requirement increased
- Continues to have poor cough reflex and excessive secretion. Deep suction been done periodically overnight with significant secretion
- Discussed with pulmonology and left chest ultrasound on 06/28/24 showed reaccumulated large left pleural effusion
2. Cardiac arrest - Asystole
Vent dependent respiratory failure - resolved
Acute hypoxic resp failure
- possible multifactorial with hypoxia from pulmonary congestion with bradycardia/hypercalcemia
- part of hypoxia that triggered cardiac arrest was also likely from volume overload when getting first PRBC.
- required 1 epi and 1 round CPR with ROSC achieved in 3min
- Intubated during the code
- Post intubation CXR reviewed persistent homogeneous retrocardiac left lower lobe opacity.
3. Elevated troponin
Rule out NSTEMI
-Troponin max of 10.7
-Heparin drip discontinued at this point.
-TTE showing EF 50-55%
-No plan for any cath at this point
4. Acute on chronic heart failure with reduced ejection fraction
- proBNP>[id number]
- Echo for 06/22/24
- volume management by HD
- Patient makes some urine and currently on IV Bumex as well
- Continue hold Carvedilol due to severe bradycardia
5. Sinus bradycardia with first-degree block - improving
- Patient heart rate was in 30s and patient was encephalopathic on morning of 06/22. started dopamine empirically despite hypoxia/hypoglycemia was likely reason for encephalopathy.
- Hypercalcemia possibly playing role
- Heart rate improved with improvement of hypercalcemia, pacemaker may not be warranted at this stage, continue monitoring
6. Hypercalcemia - Improving
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
Parathyroid adenoma
Vit D deficiency
- Difficult to explain, max of 13.7, suspecting tertiary hyperparathyroidism
- Patient on Cinacalcet 120mg MOWE before admission, dose increased to Cinacalcet 90 mg daily on 06/27
- PTH significantly elevated - 1022, Ca 12.4 today
- CT c/a/p showing enlarged parathryoid gland
- Got pamidronate 30mg x1 inj/ f/u response
- Thyroid US showing parathyroid adenoma -will benefit with eventual parathyroidectomy if family preferred and clinically appropriate
- Vit d 25 OH - 20 , discussed with clam bed worker replacement would be beneficial
7. History of CVA with left hemiparesis, dysarthria and dysphagia
PEG TF dependent
- Episode of nausea/vomiting today, tube feed put on hold again
- As needed Zofran, repeat EKG ordered and if patient symptoms improve will need to be started TF slow rate, monitor blood glucose while off tube feed
8. ESRD on HD ( MWF )
Right IJ Hemodialysis Catheter
Anemia of Chronic Disease
- had full HD on 06/19/24
- Continue Renvela for hyperphosphatemia
- PAPITO to be provided for anemia
- Got 1 unit PRBC for hemoglobin of 6.9. Patient developed pulmonary congestion after finishing three fourths of blood transfusion yesterday.
- No reported luminal blood loss. Occult stool test neg
- Heparin drip has stopped at this point
- S/p 2 units of PRBC this admission. Continue providing PRBC as needed for hemoglobin less than 7
Anemia
-likely renal failure related
-If needed give blood transfusion only with dialysis moving forward
Severe calcific atherosclerotic plaque in the coronary arteries on CT Chest
Right chronically impacted humeral neck fracture -imaging finding on CT chest, needs to be verified with previous records
Hyponatremia
Recent Flu
Benign Hypertension
Hyperlipidemia
Carotid artery disease s/p R CEA
BPH
Depression
DVT Prophylaxis: Heparin SUBQ
Code Status: DNR/DNI -promotor group ticket sales discussed with family on 06/25
Daughter Tawnya updated by Dr. Benedict Villarreal on 06/22 and 06/23 06/27
06/24/[address] Benedict Villarreal and patient's daughter at bedside. All questions answered regarding event leading up to cardiac arrest and further prognosis moving forward. After lengthy discussion family agreed for patient to
be switched to DNI once extubated. Dr. Soraya Villarreal clarified to patient family that patient have permanent risk of repeated aspiration/mucous plugging in light of history of stroke/altered physiology at this point. If patient continues to have
recurrent issues with pulmonary aspiration/hypoxia patient would be appropriate for hospice eventually.
Overall prognosis poor and family wants to discuss care plan with hospice (as information session) but is appropriate for hospice care at this stage.
Patient continues to remain high risk of aspiration as have significant secretions which patient not able to clear.
Anticipated Discharge: > 48 hours
Subjective/Interval History
-
Date of Service: June 29, 2024
Patient was seen and examined. No new significant symptoms or complaints.
Objective Data
-
Labs:
Laboratory Results
06/29/24
03:05
WBC 9.4
Hgb 8.2 L
Hct 24.7 L
Plt Count 173
Sodium 134 L
Potassium 3.9
Chloride 97 L
Carbon Dioxide 27
BUN 50 H
Creatinine 3.9 H
Glucose 89
Calcium 11.3 H
Vital Signs:
Vital Signs
Temp Pulse Resp BP Pulse Ox
97.4 F 56 23 142/65 96
06/29/24 07:30 06/29/24 07:55 06/29/24 07:55 06/29/24 07:55 06/29/24 07:55
I&O
06/28/24 06/29/24 06/30/24
06:59 06:59 06:59
Intake Total 1240 / 1240 280 / 280
Output Total 150 / 150
Balance 1090 / 1090 280 / 280
[2024-06-29 08:50] LABS: Body Fluid pH 7.44
[2024-06-29 09:12] LABS: Body Fluid Glucose 82 mg/dl; Body Fluid LDH 108 U/L; Body Fluid Protein 2.9 g/dl
[2024-06-29] MEDS: SENSIPAR 90 MG TUBE (09:19)
[2024-06-29] MEDS: PREVACID 15 MG TUBE (09:20)
[2024-06-29] MEDS: LOW STRENGTH ASPIRIN 81 MG TUBE (09:20)
[2024-06-29] MEDS: MIRALAX 17 GRAMS TUBE (09:20)
[2024-06-29] MEDS: WELLBUTRIN REGULAR RELEASE 150 MG TUBE ×2 (09:22→20:59)
[2024-06-29] MEDS: HEPARIN 5000 UNITS SC ×2 (09:26→20:59)
[2024-06-29 09:38] LABS: Body Fluid Mononuclear 76.7 %; Body Fluid Polymorphonuclear 23.3 %; Body Fluid WBC 451 /CUMM
--- NOTE | 2024-06-29 09:46 | W.PN.NEPH.PH ---
Today's Communication / Plan
-
HD
Assessment/Plan
-
Impression:
ESRD MWF
Hypoxia/left lung atelectasis versus pneumonia
Large left pleural effusion s/p thoracentesis 06/21
CHF
Anemia
Hypertension hx
Hyponatremia
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
Hyperphosphatemia
PEG
Non-ST elevation [place]
History of stroke with subsequent left hemiparesis dysarthria and dysphagia
Tunneled right HD IJ catheter
Chronic impacted right proximal humerus fracture
hypercalcemia
Plan:
Sensipar 90mg daily
pamidronate 60mg today
calcitonin course
follow BMP
HD today
d/w daughter. she understands his very tenuous situation at this time. She tried to discuss with him goals of care.
I also discussed with the patient goal of care. He is willing still and wishes to try to still get to rehab.
They do not want to return to [place] [facility] and so all arrangements will need to be made. While dialysis onsite would be helpful, it is not absolutely necessary so long as they can transport him. This would allow more options.
Daughter lives closer to [place] and facility there may be more helpful to his overall convalescence
He likely has tertiary hyperparathyroidism and will require surgery though he is clearly not a candidate at this time
35 minutes of critical care time were spent on this patient
-
-
Date of Service: June 29, 2024
CC / HPI / ROS
-
Chief Complaint:
ESRD
History of Present Illness:
hemodynamically stable
pulse remains bradycardic
critically ill in ICU
Calcium remains elevated 11.3
hgb stable low 8.2
Review of Systems:
No chest pain or shortness of breath
No fever
Labs
-
Labs:
WBC 9.4 10^3/uL (4.8-10.8) 06/29/24 03:05
RBC 2.73 10^6/uL (4.70-6.10) L 06/29/24 03:05
Hgb 8.2 g/dL (13.0-18.0) L 06/29/24 03:05
Hct 24.7 % (39.0-52.0) L 06/29/24 03:05
Plt Count 173 10^3/uL (130-400) 06/29/24 03:05
Sodium 134 mmol/L (135-145) L 06/29/24 03:05
Potassium 3.9 mmol/L (3.5-5.1) 06/29/24 03:05
Chloride 97 mmol/L (98-107) L 06/29/24 03:05
Carbon Dioxide 27 mmol/L (22-30) 06/29/24 03:05
BUN 50 mg/dl (9-20) H 06/29/24 03:05
Creatinine 3.9 mg/dL (0.7-1.3) H 06/29/24 03:05
eGFR 16.01 06/29/24 03:05
Glucose 89 mg/dl (70-99) 06/29/24 03:05
Calcium 11.3 mg/dl (8.4-10.2) H 06/29/24 03:05
Phosphorus 2.5 mg/dl (2.5-4.5) 06/22/24 12:03
Dux-N-Rnrmdwhwnuv Pept > 16374 pg/ml 06/20/24 18:13
Albumin 2.3 g/dl (3.5-5.0) L 06/25/24 04:13
Physical Exam
-
Vital Signs:
Vital Signs
Temp Pulse Resp BP Pulse Ox
97.4 F 53 21 139/76 96
06/29/24 07:30 06/29/24 08:29 06/29/24 08:29 06/29/24 08:29 06/29/24 07:55
Cardiovascular:: Regular rate and rhythm
Respiratory:: Bilateral: Coarse
Lung Excursion:: Normal
Abdomen:: Nontender and Soft
Bowel Sounds:: Normal
Extremity Edema:: None: Bilateral:
[2024-06-29 09:48] LABS: Body Fluid Second Tech CF
--- NOTE | 2024-06-29 11:30 | HOSPNOTE ---
Addendum entered by Brunilda Tillman RN 06/29/24 13:41:
Met with daughter and discussed hospice and the philosophy. At this time the patient's code status remains the same DNR/DNI. The patient and daughter are in agreement to continue treatments and was notified to start seeking placement closer to
[place] for a SNF that does dialysis on site. Will continue to be available if needed.
Original Note:
Daughter had to leave but will be back at 1pm to discuss hospice and the philosophy. More information to follow.
--- NOTE | 2024-06-29 12:00 | PTCARENOTE ---
Family updated...all questions answered. Intermittently at bedside.
[2024-06-29] MEDS: CALCIMAR/CALCITONIN 400 UNITS/ 2 ML 300 UNITS SC ×2 (12:29→21:06)
[2024-06-29] MEDS: AREDIA 270 MG IV (12:32)
[2024-06-29 12:43] LABS: Glucose - Point of Care 71 mg/dl (70-99)
--- NOTE | 2024-06-29 13:30 | PTCARENOTE ---
Family met w/ and needle leader.
--- NOTE | 2024-06-29 15:22 | CHAP ---
Fr. Reese of [facility] provided [facility] (Last Rites) as requested.
--- NOTE | 2024-06-29 15:23 | CM ---
Addendum entered by Moshe Hollis 06/30/24 08:14:
CM received a call back from pt's daughter Tawnya late afternoon yesterday and she is requested to provide a list of SNFs with HD onsite in [facility], preferable closer to [facility] where daughter lives.
Original Note:
CM following re: discharge planning.
Reviewed pt's chart, met with pt and left a message to pt's daughter Tawnya.
Per service liaison representative, pt's family declined hospice care and they preferred to place the pt to a SNF with HD onsite in [facility].
CM tried to call pt's daughter numerous times, left messages and finally got pt's daughter on the phone and she stated she will call me back when she in available.
D/C plan: preferred SNF [facility] with HD treatment onsite.
CM will follow with discharge plan updates as hospitalization progresses
--- NOTE | 2024-06-29 15:31 | W.PN.PUL3 ---
Today's Communication / Plan
-
- Add flutter valve
- Continue hypertonic saline and albuterol for airway clearance
- Continue Zosyn for a total of 7 days
- Follow-up chest x-ray in 48 to 72 hours
- Palliative care consult
Assessment
-
Patient is a 60-year-old gentleman with known history of carotid artery disease status post right CEA in the past, end-stage renal disease on hemodialysis, hypertension, hyperlipidemia, congestive heart failure with reduced ejection fraction of 40
to 45% as well as history of stroke in the past, who was brought from the shelter facility for worsening shortness of breath. Patient reportedly has been feeling short of breath over the last couple of weeks which has been progressively
getting worse. Reported diagnosis of low enzymes patient has been on Tamiflu. In view of worsening respiratory status he was transferred to the emergency room for further workup. Imaging in the emergency room showing showed near complete collapse
of the left lung with large pleural effusion as well as moderate pleural effusion on the right side. Patient also was noted to have significantly elevated troponin along with sinus bradycardia. Patient was started on broad-spectrum antibiotics,
aspirin as well as heparin drip for suspected NSTEMI and was admitted to hospitalist service.
In view of large effusion, interventional radiology and pulmonary service were requested for further input. Patient had thoracentesis performed with gradual improvement. Patient subsequently had a cardiopulmonary arrest and required CPR on 06/23
and CODE STATUS was reversed from DNR to full code. Patient was intubated for 2 days and it was felt to be related to mucous plug obstructing left main bronchus. Patient was successfully extubated on 06/25.
#1. Bilateral pleural effusion, left greater than right. S/p bilateral thoracentesis. Repeat left-sided thoracentesis 06/29, 1750 ml removed
- Effusions are felt to be related to underlying congestive heart failure, and ESRD with volume overload.
- Transudate on 06/22. Suspect pseudo exudate on 06/29.
- Continue volume control with hemodialysis as tolerated
- Chest x-ray in 48 to 72 hours to monitor if patient developing any re-accumulation
#2. Aspiration risk with poor cough and mucous plug obstructing left mainstem bronchus leading to cardiopulmonary arrest.
-Patient intubated 06/23, extubated 06/25
- Continue nebulized 3% saline 3 times daily as well as albuterol 3 times daily to help with airway clearance
- Add flutter valve
- Patient's cough appears to be stronger now and is able to clear her airway
- Increase activity as tolerated
- Continue n.p.o. status, patient currently fed via PEG tube
- Pseudomonas noted on sputum, complete 7 days of antibiotics, suspect colonization rather than pneumonia. CT scan reviewed, more suggestive of compression atelectasis due to pleural fluid rather than rai consolidation.
#3. Acute on chronic heart failure with preserved ejection fraction. EF 50 to 55% with severely dilated left atrium and moderately dilated right atrium.
- Continue HD support to help with volume removal
#4. End-stage renal disease on hemodialysis Saturday
- Nephrology service on case
- Hypercalcemia noted, likely will need parathyroidectomy once he is more stable
Other medical issues:
- NSTEMI. No chest pain. on ASA/Statins. medical management
- History of CVA with left hemiparesis, dysarthria and dysphagia. Patient is not n.p.o. at baseline and is on PEG tube feeding
- Sinus bradycardia with first degree heart block. Cardiology service in place. Coreg on hold.
- End-stage renal disease, on hemodialysis. Patient has a right upper chest permacath in place.
Improved after bilateral thoracenteses-left - 06/21/2024-1450 mL, right 1100 mL-transudative on both thoracenteses procedures
Monitor for fluid reaccumulation
CT chest with moderate right pleural effusion-consider repeat thoracentesis if does not improve with hemodialysis
Left-sided chest ultrasound today (06/28) shows a large left-sided pleural effusion to IR consulted as stated above
Pulmonary service will continue to follow along. Continue IMU level care.
Family meeting
I met with patient's daughter as well as ex-. Goals of care discussions took place in the presence of palliative care nurse. Patient's family requesting medical team to discuss again with the patient regarding his CODE STATUS and wishes in
future as he had been DNR/DNI in the past but was temporarily intubated in the setting of mucous plug.
Data:
CXR 05/2024: 1. Near complete opacification of the left hemithorax which is likely secondary to a large left pleural effusion and airspace consolidation (compressive atelectasis or pneumonia).
2. Moderate ground-glass opacity in the infrahilar right lower lung which could be subsegmental atelectasis or pneumonia.
3. Right IJ hemodialysis catheter in place.
4. Chronic impacted fracture of the right humeral neck.
CT Chest 05/2024: 1. Complete endobronchial obstruction of the left mainstem bronchus containing layering secretions. SEVERE NEAR COMPLETE AIRSPACE CONSOLIDATION of the LEFT UPPER and LOWER LOBES (either atelectasis or pneumonia).
2. LARGE LEFT PLEURAL EFFUSION.
3. Moderate to large right pleural effusion.
4. Moderate to severe cardiomegaly.
5. Severe calcific atherosclerotic plaque in the coronary arteries.
6. Right IJ hemodialysis catheter in place.
7. Chronic impacted fracture of the right proximal humerus.
Total time spent today was 37 minutes for this encounter. Time includes reviewing laboratory test/imaging results, reviewing pertinent medical records, obtaining and reviewing medical history, performing an appropriate exam, ordering medications,
tests and procedures. Time also includes documentation of this encounter, coordinating patient care and communicating with other healthcare professionals. Total time does not include separately billed tests performed on this date of service.
Subjective Data
-
Date of Service:
Date of Service: June 29, 2024
Chief Complaint: Pulmonary Follow Up
Objective Data
Data Reviewed
Vital Signs / I&O / Oxygen:
Vital Signs
Temp Pulse Resp BP Pulse Ox
97.4 F 56 23 153/81 94
06/29/24 15:31 06/29/24 15:00 06/29/24 15:00 06/29/24 15:00 06/29/24 15:00
Intake and Output
06/28/24 06/29/24 06/30/24
06:59 06:59 06:59
Intake Total 1240 / 1240 280 / 280 425 / 425
Output Total 150 / 150
Balance 1090 / 1090 280 / 280 425 / 425
SaO2 [CPAP] 99
SaO2 [A/C] 99
SaO2 94
Nasal Cannula flow liters per 4
minute
Physical Exam
General: Respiratory Distress (negative), Comfortable, Chills (negative) and Sweats (negative)
HEENT: Normocephalic, Anicteric and Moist Mucous Membranes
Cardiovascular: S1-S2 and Peripheral Edema (Trace lower extremity edema bilaterally)
Respiratory: Wheeze (negative), Crackles (Bilaterally), Rhonchi (Bilaterally) and Non-Labored Respirations
GI: Soft, Non Distended, Non Tender and Normal Bowel Sounds
Neurology: Tremors (negative) and Lethargic (Easily arousable to voice and following commands)
Skin: Warm, Dry, Cyanosis (negative) and Jaundice (negative)
Labs/Micro/Reports
Lab Data
06/29/24 03:05
06/29/24 03:05
Microbiology
06/29/24 08:24 Pleural Fluid Gram Stain - Preliminary
06/29/24 08:24 Pleural Fluid Fungal Culture - Preliminary
Culture in progress.
Positive cultures are reported as soon as detected.
Final report to follow in four to five weeks.
06/27/24 09:38 Feces/Stool C. difficile GDH Antigen & Toxins - Final
C. difficile antigen positive, toxin negative.
Clostridium difficile present, but toxin not detected.
Patient may be a carrier, colonized with nontoxinogenic
strain or the level of toxin in sample is below detection
limits. This information should be used in conjunction with
the patient's clinical history.
--- NOTE | 2024-06-29 16:45 | PTCARENOTE ---
HD RN at bedside to provide ordered HD
--- NOTE | 2024-06-29 17:04 | W.PN.NEPH.HD ---
Assessment
-
Seen on HD. no issues. VSS, access ok
Progress Note - Hemodialysis
-
Date of Service: June 29, 2024
Duration: 30 minutes and 3 hours
Potassium Bath: 2
Calcium Bath: 2.5
Opti-Dialyzer: 160
Ultrafiltration: Other (2)
Blood Flow: 400
Dialysate Flow: 600
Heparin: 0
EPO: 72154 units
[2024-06-29] MEDS: ZOSYN IV (17:14)
[2024-06-29] MEDS: RETACRIT 10000 UNITS IV (17:18)
[2024-06-29] MEDS: CRESTOR 20 MG TUBE (17:22)
--- NOTE | 2024-06-29 20:45 | PTCARENOTE ---
HD tx complete- 2L off. 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 RAC/R midline WNL/RSC HD cath WNL. Sat 98% on 2LNC, pt using yankeur to suction mouth. Peg with TF at goal per order. POC discussed, call pérez with pt.
[2024-06-29] MEDS: FOLVITE 2 MG TUBE (20:59)
[2024-06-29] MEDS: MELATONIN 5 MG TUBE (20:59)
[2024-06-30] VITALS (20 sets, daily range): BP systolic 136–164; BP diastolic 74–100; BMI 20.6; BMI 21.0
[2024-06-30 00:25] LABS: Glucose - Point of Care 61 mg/dl (70-99)
[2024-06-30] MEDS: DEXTROSE 50% SYRINGE 12.5 GRAMS IV (00:28)
[2024-06-30 00:48] LABS: Glucose - Point of Care 101 mg/dl (70-99)
[2024-06-30] MEDS: ZOSYN 50 IV ×3 (02:00→17:05)
[2024-06-30 05:31] LABS: Glucose - Point of Care 81 mg/dl (70-99)
[2024-06-30 05:32] LABS: Hematocrit 25.9 % (39.0-52.0); Hemoglobin 8.8 g/dL (13.0-18.0); Mean Corpuscular Hgb 30.7 pg (27.0-31.0); Mean Corpuscular Volume 90.2 fL (80.0-94.0); Mean Platelet Volume 8.5 fL (7.4-10.4); Platelet Count 201 10^3/uL (130-400); Red Blood Cell Count 2.87 10^6/uL (4.70-6.10); Red Cell Dist. Width 15.3 % (11.5-14.5); White Blood Cell Count 9.1 10^3/uL (4.8-10.8)
[2024-06-30 05:56] LABS: Blood Urea Nitrogen 25 mg/dl (9-20); Carbon Dioxide 30 mmol/L (22-30); Chloride 100 mmol/L (98-107); Estimated Creatinine Clearance 27 ml/min; Glucose 78 mg/dl (70-99); Magnesium 2.2 mg/dl (1.6-2.3); Potassium 3.4 mmol/L (3.5-5.1)
[2024-06-30 06:02] LABS: Sodium 136 mmol/L (135-145)
[2024-06-30] MEDS: SODIUM CHLORIDE 3% FOR INHALATION 1 VIAL INH ×3 (07:22→19:37)
[2024-06-30] MEDS: VENTOLIN NEBULES 2.5 MG INH ×3 (07:23→19:38)
--- NOTE | 2024-06-30 08:00 | PTCARENOTE ---
Patient received lying in bed, he appears to be sleeping comfortably with eyes closed, respirations nonlabored. He rouses easily to name called. See assessment charted in worklist. Patient seems very down, flat affect, slightly anxious, minimally
conversational, fair eye contact. He is refusing basic cares such as oral care. Emotional support and encouragement given. He denies pain. BBS very coarse, rhonchi, crackles and wheezes t/o. Sats 98% on RA. SR on CM with 1st degree AVB, BBB. Nepro
via PEG per order, tolerating well. Patient coughing, suctioning self with yankauer. Bed in low and locked position, HOB up 30 degrees, call pérez in reach.
[2024-06-30] MEDS: WELLBUTRIN REGULAR RELEASE 150 MG TUBE ×2 (08:33→21:21)
[2024-06-30] MEDS: SENSIPAR 90 MG TUBE (08:34)
[2024-06-30] MEDS: HEPARIN 5000 UNITS SC ×2 (08:34→21:21)
[2024-06-30] MEDS: PREVACID 15 MG TUBE (08:34)
[2024-06-30] MEDS: LOW STRENGTH ASPIRIN 81 MG TUBE (08:34)
[2024-06-30] MEDS: MIRALAX TUBE (08:35)
[2024-06-30] MEDS: CALCIMAR/CALCITONIN 400 UNITS/ 2 ML 300 UNITS SC ×2 (08:38→22:15)
--- NOTE | 2024-06-30 09:16 | W.PN.NEPH.PH ---
Today's Communication / Plan
-
HD tomorrow
Assessment/Plan
-
Impression:
ESRD MWF
Hypoxia/left lung atelectasis versus pneumonia
Large left pleural effusion s/p thoracentesis 06/21
CHF
Anemia
Hypertension hx
Hyponatremia
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
Hyperphosphatemia
PEG
Non-ST elevation MS
History of stroke with subsequent left hemiparesis dysarthria and dysphagia
Tunneled right HD IJ catheter
Chronic impacted right proximal humerus fracture
hypercalcemia
Plan:
Sensipar 90mg daily
dc calcitonin course
follow BMP
HD tomorrow
will need to look for rehab places
-
-
Date of Service: June 30, 2024
CC / HPI / ROS
-
Chief Complaint:
ESRD
History of Present Illness:
hemodynamically stable
pulse remains bradycardic
critically ill in ICU
Calcium down to 10 with 60mg aredia and calcitonin 5/5
hgb stable low 8.8
Review of Systems:
No chest pain or shortness of breath
No fever
Labs
-
Labs:
WBC 9.1 10^3/uL (4.8-10.8) 06/30/24 05:25
RBC 2.87 10^6/uL (4.70-6.10) L 06/30/24 05:25
Hgb 8.8 g/dL (13.0-18.0) L 06/30/24 05:25
Hct 25.9 % (39.0-52.0) L 06/30/24 05:25
Plt Count 201 10^3/uL (130-400) 06/30/24 05:25
Sodium 136 mmol/L (135-145) 06/30/24 05:25
Potassium 3.4 mmol/L (3.5-5.1) L 06/30/24 05:25
Chloride 100 mmol/L (98-107) 06/30/24 05:25
Carbon Dioxide 30 mmol/L (22-30) 06/30/24 05:25
BUN 25 mg/dl (9-20) H 06/30/24 05:25
Creatinine 2.5 mg/dL (0.7-1.3) H 06/30/24 05:25
eGFR 27.30 06/30/24 05:25
Glucose 78 mg/dl (70-99) 06/30/24 05:25
Calcium 10.0 mg/dl (8.4-10.2) 06/30/24 05:25
Phosphorus 2.5 mg/dl (2.5-4.5) 06/22/24 12:03
Rwp-C-Apabxdxrvgj Pept > 40918 pg/ml 06/20/24 18:13
Albumin 2.3 g/dl (3.5-5.0) L 06/25/24 04:13
Physical Exam
-
Vital Signs:
Vital Signs
Temp Pulse Resp BP Pulse Ox
97.9 F 63 24 146/85 97
06/30/24 08:00 06/30/24 06:00 06/30/24 06:00 06/30/24 06:00 06/30/24 06:00
Cardiovascular:: Regular rate and rhythm
Respiratory:: Bilateral: Coarse
Lung Excursion:: Normal
Abdomen:: Nontender and Soft
Bowel Sounds:: Normal
Extremity Edema:: None: Bilateral:
--- NOTE | 2024-06-30 11:00 | PTCARENOTE ---
Patient incontinent of large loose BM. Complete cares given with CHG cloth bath, complete linen change. Essentially no other change in patient physical assessment.
[2024-06-30 15:00] LABS: Glucose - Point of Care 81 mg/dl (70-99)
--- NOTE | 2024-06-30 16:06 | W.PN.HOSP.TC ---
Today's Communication/Plan
-
See plan
Replace potassium
Appreciate nephrology and pulmonary
Assessment / Plan
Assessment / Plan
Physical Exam
General: Comfortable
HEENT: Normocephalic
Respiratory: Rhonchi (increased secretion)
Cardiac: Regular Rhythm and S1/S2; Negative Murmur or Rub
GI: Soft, Nontender and Peg Tube
Musculoskeletal: No Edema
Neuro: Awake, Alert and No Motor Deficits
Psych: Calm

CT chest
1. Complete endobronchial obstruction of the left mainstem bronchus containing layering secretions. SEVERE NEAR COMPLETE AIRSPACE CONSOLIDATION of the LEFT UPPER and LOWER LOBES (either atelectasis or pneumonia).
2. LARGE LEFT PLEURAL EFFUSION.
3. Moderate to large right pleural effusion.
4. Moderate to severe cardiomegaly.
5. Severe calcific atherosclerotic plaque in the coronary arteries.
6. Right IJ hemodialysis catheter in place.
7. Chronic impacted fracture of the right proximal humerus.
CT c/a/p
Moderate bilateral pleural effusions, right larger than left. Both improved.
Mild right lower lobe consolidation. Stable. Moderate left lower lobe consolidation. Improved. Both concerning for pneumonia.
Mild cardiomegaly. Improved.
Enhancing mass posterior to the left thyroid gland. Differential includes exophytic thyroid nodule, parathyroid mass and lymphadenopathy. Thyroid ultrasound recommended.
Bilateral adrenal hyperplasia. Stable
Mild bilateral renal atrophy.
Mild abdominopelvic ascites.
Moderate diffuse bladder wall thickening. This can be seen with cystitis or bladder outlet obstruction.
Mild prostate hypertrophy.
Findings suggestion moderate volume overload or third spacing.
T7 and T11 compression fractures. Stable. L1 area not imaged previously for comparison

1. Left mainstem bronchus obstruction from secretions
Bilateral pleural effusion
Compression atelectasis
Pseudomonal aspiration pneumonia
- Patient with history of CVA/PEG tube and on tube feeding
- Patient was on cefepime, has been discontinued on pulmonology recommendation as there is no supporting evidence of ongoing pneumonia
- Patient underwent left-sided thoracentesis of 1.45 L of transudative fluid. Fluid analysis reports reviewed. Fluid culture has been negative for any growth
- Patient underwent right-sided thoracentesis of 1.1 L of transudative fluid.
- Patient underwent left-sided thoracentesis of 1.75 L on 06/29/24.
- CPT added to treatment regimen to help pulm toileting
- Respiratory culture growing pansensitive Pseudomonas, maintain on Zosyn
- Chest x-ray continue to show residual left-sided effusion with some loculation
- Patient had episode of nausea/vomiting recently with concern of repeat aspiration and oxygen requirement increased
- Continues to have poor cough reflex and excessive secretion. Deep suction been done periodically overnight with significant secretion
- Discussed with pulmonology and left chest ultrasound on 06/28/24 showed reaccumulated large left pleural effusion
2. Cardiac arrest - Asystole
Vent dependent respiratory failure - resolved
Acute hypoxic resp failure
- possible multifactorial with hypoxia from pulmonary congestion with bradycardia/hypercalcemia
- part of hypoxia that triggered cardiac arrest was also likely from volume overload when getting first PRBC.
- required 1 epi and 1 round CPR with ROSC achieved in 3min
- Intubated during the code
- Post intubation CXR reviewed persistent homogeneous retrocardiac left lower lobe opacity.
3. Elevated troponin
Rule out NSTEMI
-Troponin max of 10.7
-Heparin drip discontinued previously this hospitalization
-TTE showing EF 50-55%
-No plan for any cath at this point
4. Acute on chronic heart failure with reduced ejection fraction
- proBNP>[id number]
- Echo for 06/22/24
- volume management by HD
- Patient makes some urine and currently on IV Bumex as well
- Continue hold Carvedilol due to severe bradycardia
5. Sinus bradycardia with first-degree block - improving
- Patient heart rate was in 30s and patient was encephalopathic on morning of 06/22. started dopamine empirically despite hypoxia/hypoglycemia was likely reason for encephalopathy.
- Hypercalcemia possibly playing role
- Heart rate improved with improvement of hypercalcemia, pacemaker may not be warranted at this stage, continue monitoring
6. Hypercalcemia - Improving
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
Parathyroid adenoma
Vit D deficiency
- Difficult to explain, max of 13.7, suspecting tertiary hyperparathyroidism
- Patient on Cinacalcet 120mg MOWE before admission, dose increased to Cinacalcet 90 mg daily on 06/27
- PTH significantly elevated - 1022, Ca 12.4 today
- CT c/a/p showing enlarged parathryoid gland
- Got pamidronate 30mg x1 inj/ f/u response
- Thyroid US showing parathyroid adenoma -will benefit with eventual parathyroidectomy if family preferred and clinically appropriate
- Vit d 25 OH - 20 , discussed with plastic surgery nurse replacement would be beneficial
7. History of CVA with left hemiparesis, dysarthria and dysphagia
PEG TF dependent
- Continue tube feed as tolerated
8. ESRD on HD ( MWF )
Right IJ Hemodialysis Catheter
Anemia of Chronic Disease
- had full HD on 06/19/24
- Continue Renvela for hyperphosphatemia
- PAPITO to be provided for anemia
- Got 1 unit PRBC for hemoglobin of 6.9. Patient developed pulmonary congestion after finishing three fourths of blood transfusion yesterday.
- No reported luminal blood loss. Occult stool test neg
- Heparin drip has stopped at this point
- S/p 2 units of PRBC this admission. Continue providing PRBC as needed for hemoglobin less than 7
Anemia
-likely renal failure related
-If needed give blood transfusion only with dialysis moving forward
Severe calcific atherosclerotic plaque in the coronary arteries on CT Chest
Right chronically impacted humeral neck fracture -imaging finding on CT chest, needs to be verified with previous records
Hyponatremia
Recent Flu
Benign Hypertension
Hyperlipidemia
Carotid artery disease s/p R CEA
BPH
Depression
DVT Prophylaxis: Heparin SUBQ
Code Status: DNR/DNI -foster winder discussed with family on 06/25
Daughter Tawnya updated by Dr. Benedict Villarreal on 06/22 and 06/23 06/27
06/24/[address] Benedict Villarreal and patient's daughter at bedside. All questions answered regarding event leading up to cardiac arrest and further prognosis moving forward. After lengthy discussion family agreed for patient to
be switched to DNI once extubated. Dr. Soraya Villarreal clarified to patient family that patient have permanent risk of repeated aspiration/mucous plugging in light of history of stroke/altered physiology at this point. If patient continues to have
recurrent issues with pulmonary aspiration/hypoxia patient would be appropriate for hospice eventually.
Overall prognosis poor and family wants to discuss care plan with hospice (as information session) but is appropriate for hospice care at this stage.
Patient continues to remain high risk of aspiration as have significant secretions which patient not able to clear.
Anticipated Discharge: > 48 hours
Subjective/Interval History
-
Date of Service: June 30, 2024
Patient was seen and examined. No new significant symptoms or complaints.
Objective Data
-
Labs:
Laboratory Results
06/30/24
05:25
WBC 9.1
Hgb 8.8 L
Hct 25.9 L
Plt Count 201
Sodium 136
Potassium 3.4 L
Chloride 100
Carbon Dioxide 30
BUN 25 H
Creatinine 2.5 H
Glucose 78
Calcium 10.0
Vital Signs:
Vital Signs
Temp Pulse Resp BP Pulse Ox
98.2 F 64 23 152/81 98
06/30/24 15:54 06/30/24 14:00 06/30/24 14:00 06/30/24 14:00 06/30/24 14:00
I&O
06/29/24 06/30/24 07/01/24
06:59 06:59 06:59
Intake Total 280 / 280 425 / 425 840 / 840
Output Total 400 / 400
Balance 280 / 280 840 / 840
--- NOTE | 2024-06-30 16:20 | W.PN.PUL3 ---
Today's Communication / Plan
-
- Continue airway clearance with hypertonic saline, albuterol and flutter valve
- Patient at high risk of aspiration and mucous plugging
Assessment
-
Patient is a 60-year-old gentleman with known history of carotid artery disease status post right CEA in the past, end-stage renal disease on hemodialysis, hypertension, hyperlipidemia, congestive heart failure with reduced ejection fraction of 40
to 45% as well as history of stroke in the past, who [facility] for worsening shortness of breath. Patient reportedly has been feeling short of breath over the last couple of weeks which has been progressively
getting worse. Reported diagnosis of low enzymes patient has been on Tamiflu. In view of worsening respiratory status he was transferred to the emergency room for further workup. Imaging in the emergency room showing showed near complete collapse
of the left lung with large pleural effusion as well as moderate pleural effusion on the right side. Patient also was noted to have significantly elevated troponin along with sinus bradycardia. Patient was started on broad-spectrum antibiotics,
aspirin as well as heparin drip for suspected NSTEMI and was admitted to hospitalist service.
In view of large effusion, interventional radiology and pulmonary service were requested for further input. Patient had thoracentesis performed with gradual improvement. Patient subsequently had a cardiopulmonary arrest and required CPR on 06/23
and CODE STATUS was reversed from DNR to full code. Patient was intubated for 2 days and it was felt to be related to mucous plug obstructing left main bronchus. Patient was successfully extubated on 06/25.
#1. Bilateral pleural effusion, left greater than right. S/p bilateral thoracentesis. Repeat left-sided thoracentesis 06/29, 1750 ml removed
- Effusions are felt to be related to underlying congestive heart failure, and ESRD with volume overload.
- Transudate on 06/22. Suspect pseudo exudate on 06/29.
- Continue volume control with hemodialysis as tolerated
- Chest x-ray in 48 hours to monitor if patient developing any re-accumulation
#2. Aspiration risk with poor cough and mucous plug obstructing left mainstem bronchus leading to cardiopulmonary arrest.
- Patient intubated 06/23, extubated 06/25
- Continue nebulized 3% saline 3 times daily as well as albuterol 3 times daily to help with airway clearance
- Added flutter valve
- Patient's cough appears to be stronger now and is able to clear his airway
- Increase activity as tolerated
- Continue n.p.o. status, patient currently fed via PEG tube
- Pseudomonas noted on sputum, complete 7 days of antibiotics, suspect colonization rather than pneumonia. CT scan reviewed, more suggestive of compression atelectasis due to pleural fluid rather than rai consolidation.
#3. Acute on chronic heart failure with preserved ejection fraction. EF 50 to 55% with severely dilated left atrium and moderately dilated right atrium.
- Continue HD support to help with volume removal
#4. End-stage renal disease on hemodialysis Saturday
- Nephrology service on case
- Hypercalcemia noted, likely will need parathyroidectomy once he is more stable
Other medical issues:
- NSTEMI. No chest pain. on ASA/Statins. medical management
- History of CVA with left hemiparesis, dysarthria and dysphagia. Patient is not n.p.o. at baseline and is on PEG tube feeding
- Sinus bradycardia with first degree heart block. Cardiology service in place. Coreg on hold.
- End-stage renal disease, on hemodialysis. Patient has a right upper chest permacath in place.
Improved after bilateral thoracenteses-left - 06/21/2024-1450 mL, right 1100 mL-transudative on both thoracenteses procedures
Monitor for fluid reaccumulation
CT chest with moderate right pleural effusion-consider repeat thoracentesis if does not improve with hemodialysis
Left-sided chest ultrasound today (06/28) shows a large left-sided pleural effusion to IR consulted as stated above
Pulmonary service will continue to follow along. Continue IMU level care.
Family meeting
I met with patient's daughter as well as ex-. Goals of care discussions took place in the presence of palliative care nurse. Patient's family requesting medical team to discuss again with the patient regarding his CODE STATUS and wishes in
future as he had been DNR/DNI in the past but was temporarily intubated in the setting of mucous plug.
Data:
CXR 05/2024: 1. Near complete opacification of the left hemithorax which is likely secondary to a large left pleural effusion and airspace consolidation (compressive atelectasis or pneumonia).
2. Moderate ground-glass opacity in the infrahilar right lower lung which could be subsegmental atelectasis or pneumonia.
3. Right IJ hemodialysis catheter in place.
4. Chronic impacted fracture of the right humeral neck.
CT Chest 05/2024: 1. Complete endobronchial obstruction of the left mainstem bronchus containing layering secretions. SEVERE NEAR COMPLETE AIRSPACE CONSOLIDATION of the LEFT UPPER and LOWER LOBES (either atelectasis or pneumonia).
2. LARGE LEFT PLEURAL EFFUSION.
3. Moderate to large right pleural effusion.
4. Moderate to severe cardiomegaly.
5. Severe calcific atherosclerotic plaque in the coronary arteries.
6. Right IJ hemodialysis catheter in place.
7. Chronic impacted fracture of the right proximal humerus.
Total time spent today was 37 minutes for this encounter. Time includes reviewing laboratory test/imaging results, reviewing pertinent medical records, obtaining and reviewing medical history, performing an appropriate exam, ordering medications,
tests and procedures. Time also includes documentation of this encounter, coordinating patient care and communicating with other healthcare professionals. Total time does not include separately billed tests performed on this date of service.
Subjective Data
-
Date of Service:
Date of Service: June 30, 2024
Chief Complaint: Pulmonary Follow Up
Subjective:
Patient comfortably lying in bed, no acute distress.
Review of Systems
Genitourinary: Other (No new symptoms reported.)
Objective Data
Data Reviewed
Vital Signs / I&O / Oxygen:
Vital Signs
Temp Pulse Resp BP Pulse Ox
98.2 F 64 23 152/81 98
06/30/24 15:54 06/30/24 14:00 06/30/24 14:00 06/30/24 14:00 06/30/24 16:00
Intake and Output
06/29/24 06/30/24 07/01/24
06:59 06:59 06:59
Intake Total 280 / 280 425 / 425 840 / 840
Output Total 400 / 400
Balance 280 / 280 840 / 840
SaO2 [CPAP] 99
SaO2 [A/C] 99
SaO2 98
Nasal Cannula flow liters per 2
minute
Physical Exam
General: Comfortable and T Max
HEENT: Normocephalic, Anicteric and Moist Mucous Membranes
Cardiovascular: S1-S2 and Peripheral Edema (Trace lower extremity edema bilaterally)
Respiratory: Rhonchi (Bilaterally, mild, unchanged ) and Non-Labored Respirations
GI: Soft, Non Distended, Non Tender and Normal Bowel Sounds
Skin: Warm and Dry
Labs/Micro/Reports
Lab Data
06/30/24 05:25
06/30/24 05:25
Microbiology
06/29/24 08:24 Pleural Fluid Body Fluid Culture - Preliminary
No Growth After 18-24 Hours
06/29/24 08:24 Pleural Fluid Gram Stain - Preliminary
06/29/24 08:24 Pleural Fluid Fungal Culture - Preliminary
Culture in progress.
Positive cultures are reported as soon as detected.
Final report to follow in four to five weeks.
[2024-06-30] MEDS: KCL ELIXIR 20 MEQ TUBE (17:05)
[2024-06-30] MEDS: CRESTOR 20 MG TUBE (17:05)
--- NOTE | 2024-06-30 19:07 | PTCARENOTE ---
Report given verbally to oncoming Karolina herring RN. Questions answered.
--- NOTE | 2024-06-30 20:50 | PTCARENOTE ---
Patient transferred from ICU, aaox3, LOWER BRULE b/l. NSR on the monitor with BBB. Weak pp bl. 2L o2 via n/c with pox 95%. TF running at 30ml/hr, goal of 50ml/hr. Denies pain upon transfer. Call pérez within reach, will continue to monitor.
[2024-06-30] MEDS: FOLVITE 2 MG TUBE (21:21)
[2024-06-30] MEDS: MELATONIN 5 MG TUBE (21:21)
[2024-06-30] MEDS: COZAAR 25 MG TUBE (21:25)
[2024-06-30] MEDS: DILAUDID 0.25 MG IV (23:33)
[2024-07-01] VITALS (37 sets, daily range): BP systolic 128–174; BP diastolic 72–108; PULSE 67–68; O2SAT 95; BMI 21.6
[2024-07-01 01:55] LABS: Glucose - Point of Care 82 mg/dl (70-99)
[2024-07-01] MEDS: ZOSYN 50 IV (03:20)
[2024-07-01 03:45] LABS: Hematocrit 25.2 % (39.0-52.0); Hemoglobin 8.7 g/dL (13.0-18.0); Mean Corp Hgb Conc. 34.5 g/dL (33.0-37.0); Mean Corpuscular Hgb 30.3 pg (27.0-31.0); Mean Corpuscular Volume 87.8 fL (80.0-94.0); Mean Platelet Volume 8.2 fL (7.4-10.4); Platelet Count 217 10^3/uL (130-400); Red Blood Cell Count 2.87 10^6/uL (4.70-6.10); Red Cell Dist. Width 15.3 % (11.5-14.5); White Blood Cell Count 8.7 10^3/uL (4.8-10.8)
[2024-07-01 04:02] LABS: Blood Urea Nitrogen 36 mg/dl (9-20); Calcium 10.1 mg/dl (8.4-10.2); Carbon Dioxide 27 mmol/L (22-30); Chloride 101 mmol/L (98-107); Estimated Creatinine Clearance 21 ml/min; Glucose 82 mg/dl (70-99); Potassium 3.9 mmol/L (3.5-5.1); Sodium 137 mmol/L (135-145); eGFR 19.57
[2024-07-01] MEDS: SODIUM CHLORIDE 3% FOR INHALATION 1 VIAL INH ×3 (07:29→20:50)
[2024-07-01] MEDS: VENTOLIN NEBULES 2.5 MG INH ×3 (07:29→20:50)
[2024-07-01 07:56] LABS: Glucose - Point of Care 93 mg/dl (70-99)
[2024-07-01] MEDS: HEPARIN 5000 UNITS SC ×2 (09:47→20:49)
--- NOTE | 2024-07-01 09:52 | W.PN.NEPH.HD ---
Assessment
-
Seen on dialysis treatment being tolerated
Progress Note - Hemodialysis
-
Date of Service: July 01, 2024
Duration: 30 minutes and 3 hours
Potassium Bath: 2
Calcium Bath: 2.5
Opti-Dialyzer: 160
Ultrafiltration: Other (2)
Blood Flow: 400
Dialysate Flow: 600
Heparin: 0
EPO: 21205 units
--- NOTE | 2024-07-01 10:41 | CM ---
Patient from [facility] with Hx ESRD on HD, CVA w left hemiparesis, PEG tube feedings with Dx suspected NSTEMI, cardiopulmonary arrest 06/23, HF. O2 2L.
Spoke with daughter GORAN Bowling; daughter is hoping patient can go to a SNF for short term rehab followed by [facility], near where she lives in [place]. Tawnya will not allow her mother to return to [facility] due to poor care. She is
aware that we need to find a SNF that does in-house dialysis. Daughter thought that insurance would pay for patient for 100 days while she is in [facility]- informed her that typically insurance pays 7-20 days for rehab then patient would be
required to pay privately for [facility]iary care vs applying for Medicaid, and SNFs will ask how patient will be paying for LTC. Reviewed SNF referrals with daughter already in place in [facility] near [place] (referrals not sent, daughter aware
referrals will be sent once PT/OT Evals are available.
Message to Dr Yin requesting PT/OT Evals.
Plan follow up after seen by PT/OT.
--- NOTE | 2024-07-01 10:52 | W.PN.PUL3 ---
Today's Communication / Plan
-
Continue secretion clearance interventions
Wean down FiO2 as able currently at 2 L
Monitor off antibiotics.
Continue with aspiration precautions
Monitor clinically for reaccumulation of pleural fluid-continue dialysis
Nutritional support
Dialysis as able to maintain negative fluid balance
Assessment
-
Patient is a 60-year-old gentleman with known history of carotid artery disease status post right CEA in the past, end-stage renal disease on hemodialysis, hypertension, hyperlipidemia, congestive heart failure with reduced ejection fraction of 40
to 45% as well as history of stroke in the past, who was brought from the senior living facility for worsening shortness of breath. Patient reportedly has been feeling short of breath over the last couple of weeks which has been progressively
getting worse. Reported diagnosis of low enzymes patient has been on Tamiflu. In view of worsening respiratory status he was transferred to the emergency room for further workup. Imaging in the emergency room showing showed near complete collapse
of the left lung with large pleural effusion as well as moderate pleural effusion on the right side. Patient also was noted to have significantly elevated troponin along with sinus bradycardia. Patient was started on broad-spectrum antibiotics,
aspirin as well as heparin drip for suspected NSTEMI and was admitted to hospitalist service.
In view of large effusion, interventional radiology and pulmonary service were requested for further input. Patient had thoracentesis performed with gradual improvement. Patient subsequently had a cardiopulmonary arrest and required CPR on 06/23
and CODE STATUS was reversed from DNR to full code. Patient was intubated for 2 days and it was felt to be related to mucous plug obstructing left main bronchus. Patient was successfully extubated on 06/25.
#1. Bilateral pleural effusion, left greater than right. Improved after bilateral thoracenteses-left - 06/21/2024-1450 mL, right 1100 mL-transudative on both thoracenteses procedures.
Repeat left-sided thoracentesis 06/29, 1750 ml removed
- Effusions are felt to be related to underlying congestive heart failure, and ESRD with volume overload.
- Transudate on 06/22. Suspect pseudo exudate on 06/29.
- Continue volume control with hemodialysis as tolerated
- Repeat chest x-ray 06/29/2024: Showed no reaccumulation. Bilateral increased interstitial markings suggestive of pulmonary edema.
- Continue to monitor clinically
#2. Aspiration risk with poor cough and mucous plug obstructing left mainstem bronchus leading to cardiopulmonary arrest.
- Patient intubated 06/23, extubated 06/25
Continues to have a wet cough. Rhonchi on exam. Not bronchospastic
- Continue nebulized 3% saline 3 times daily as well as albuterol 3 times daily to help with airway clearance- while in the hospital.
- Continue flutter valve-this was encouraged.
- Patient's cough appears to be stronger now and is able to clear his airway
- Increase activity as tolerated
- Continue n.p.o. status, patient currently fed via PEG tube post CVA- risk of aspiration.
- Pseudomonas noted on sputum, completed 7 days of antibiotics, suspect colonization rather than pneumonia. CT scan reviewed, more suggestive of compression atelectasis due to pleural fluid rather than rai consolidation.
#3. Acute on chronic heart failure with preserved ejection fraction. EF 50 to 55% with severely dilated left atrium and moderately dilated right atrium.
- Continue HD support to help with volume removal
#4. End-stage renal disease on hemodialysis Saturday
- Nephrology service on case
- Hypercalcemia noted, likely will need parathyroidectomy once he is more stable
- Cachectic: Continue Tube feedings as able to
Other medical issues:
- NSTEMI. No chest pain. on ASA/Statins. medical management
- History of CVA with left hemiparesis, dysarthria and dysphagia. Patient is not n.p.o. at baseline and is on PEG tube feeding
- Sinus bradycardia with first degree heart block. Cardiology service in place. Coreg on hold.
- End-stage renal disease, on hemodialysis. Patient has a right upper chest permacath in place.
Pulmonary service will continue to follow along. Continue IMU level care.
Family meeting
Dr. Garcia met with patient's daughter as well as ex-. Goals of care discussions took place in the presence of palliative care nurse. Patient's family requesting medical team to discuss again with the patient regarding his CODE STATUS and
wishes in future as he had been DNR/DNI in the past but was temporarily intubated in the setting of mucous plug.
Data:
CXR 05/2024: 1. Near complete opacification of the left hemithorax which is likely secondary to a large left pleural effusion and airspace consolidation (compressive atelectasis or pneumonia).
2. Moderate ground-glass opacity in the infrahilar right lower lung which could be subsegmental atelectasis or pneumonia.
3. Right IJ hemodialysis catheter in place.
4. Chronic impacted fracture of the right humeral neck.
CT Chest 05/2024: 1. Complete endobronchial obstruction of the left mainstem bronchus containing layering secretions. SEVERE NEAR COMPLETE AIRSPACE CONSOLIDATION of the LEFT UPPER and LOWER LOBES (either atelectasis or pneumonia).
2. LARGE LEFT PLEURAL EFFUSION.
3. Moderate to large right pleural effusion.
4. Moderate to severe cardiomegaly.
5. Severe calcific atherosclerotic plaque in the coronary arteries.
6. Right IJ hemodialysis catheter in place.
7. Chronic impacted fracture of the right proximal humerus.
Total time spent today was 38 minutes for this encounter. Time includes reviewing laboratory test/imaging results, reviewing pertinent medical records, obtaining and reviewing medical history, performing an appropriate exam, ordering medications,
tests and procedures. Time also includes documentation of this encounter, coordinating patient care and communicating with other healthcare professionals. Total time does not include separately billed tests performed on this date of service.
Subjective Data
-
Date of Service:
Date of Service: July 01, 2024
Chief Complaint: Pulmonary Follow Up (Hypoxemic respiratory failure-bilateral pleural effusion)
Subjective:
Continues to have some white cough. He is able to clear secretions
Currently on 2 L supplemental oxygen
Denies shortness of breath at rest
Review of Systems
Cardiopulmonary: Dyspnea (none at rest)
Objective Data
Data Reviewed
Vital Signs / I&O / Oxygen:
Vital Signs
Temp Pulse Resp BP Pulse Ox
97.4 F 68 24 163/74 94
07/01/24 07:20 07/01/24 09:30 07/01/24 09:30 07/01/24 09:30 07/01/24 07:50
Intake and Output
06/30/24 07/01/24 07/02/24
06:59 06:59 06:59
Intake Total 425 / 425 1180 / 1180
Output Total 400 / 400
Balance 1180 / 1180
SaO2 [CPAP] 99
SaO2 [A/C] 99
SaO2 94
Nasal Cannula flow liters per 2
minute
Physical Exam
General: Comfortable and T Max
HEENT: Normocephalic, Anicteric and Moist Mucous Membranes
Cardiovascular: S1-S2 and Peripheral Edema (Trace lower extremity edema bilaterally)
Respiratory: Rhonchi (Bilaterally, mild, unchanged ) and Non-Labored Respirations
GI: Soft, Non Distended, Non Tender and Normal Bowel Sounds
Neurology: Tremors (negative) and Lethargic (Easily arousable to voice and following commands)
Skin: Warm and Dry
Labs/Micro/Reports
Lab Data
07/01/24 03:31
07/01/24 03:31
Microbiology
06/29/24 08:24 Pleural Fluid Body Fluid Culture - Preliminary
No Growth After 18-24 Hours
06/29/24 08:24 Pleural Fluid Gram Stain - Preliminary
06/29/24 08:24 Pleural Fluid Fungal Culture - Preliminary
Culture in progress.
Positive cultures are reported as soon as detected.
Final report to follow in four to five weeks.
[2024-07-01] MEDS: WELLBUTRIN REGULAR RELEASE 150 MG TUBE ×2 (11:33→20:49)
[2024-07-01] MEDS: LOW STRENGTH ASPIRIN 81 MG TUBE (11:33)
[2024-07-01] MEDS: PREVACID 15 MG TUBE (11:34)
[2024-07-01] MEDS: SENSIPAR 90 MG TUBE (11:34)
[2024-07-01] MEDS: MIRALAX TUBE (11:35)
[2024-07-01] MEDS: ROBITUSSIN DM 10 ML PO (11:39)
[2024-07-01] MEDS: CALCIMAR/CALCITONIN 400 UNITS/ 2 ML 300 UNITS SC (11:41)
--- NOTE | 2024-07-01 15:19 | W.PN.HOSP.TC ---
Today's Communication/Plan
-
PT, placement
Improving
See plan
Assessment / Plan
Assessment / Plan
Physical Exam
General: Comfortable
HEENT: Normocephalic
Respiratory: Rhonchi (increased secretion)
Cardiac: Regular Rhythm and S1/S2; Negative Murmur or Rub
GI: Soft, Nontender and Peg Tube
Musculoskeletal: No Edema
Neuro: Awake, Alert and No Motor Deficits
Psych: Calm

CT chest
1. Complete endobronchial obstruction of the left mainstem bronchus containing layering secretions. SEVERE NEAR COMPLETE AIRSPACE CONSOLIDATION of the LEFT UPPER and LOWER LOBES (either atelectasis or pneumonia).
2. LARGE LEFT PLEURAL EFFUSION.
3. Moderate to large right pleural effusion.
4. Moderate to severe cardiomegaly.
5. Severe calcific atherosclerotic plaque in the coronary arteries.
6. Right IJ hemodialysis catheter in place.
7. Chronic impacted fracture of the right proximal humerus.
CT c/a/p
Moderate bilateral pleural effusions, right larger than left. Both improved.
Mild right lower lobe consolidation. Stable. Moderate left lower lobe consolidation. Improved. Both concerning for pneumonia.
Mild cardiomegaly. Improved.
Enhancing mass posterior to the left thyroid gland. Differential includes exophytic thyroid nodule, parathyroid mass and lymphadenopathy. Thyroid ultrasound recommended.
Bilateral adrenal hyperplasia. Stable
Mild bilateral renal atrophy.
Mild abdominopelvic ascites.
Moderate diffuse bladder wall thickening. This can be seen with cystitis or bladder outlet obstruction.
Mild prostate hypertrophy.
Findings suggestion moderate volume overload or third spacing.
T7 and T11 compression fractures. Stable. L1 area not imaged previously for comparison

1. Left mainstem bronchus obstruction from secretions
Aspiration risk with poor cough and mucous plug obstructing left mainstem bronchus
Bilateral pleural effusion - felt to be related to underlying congestive heart failure, and ESRD with volume overload
Compression atelectasis
Pseudomonal aspiration pneumonia
Mild Pulmonary Edema
- Patient with history of CVA/PEG tube and on tube feeding
- Patient was on cefepime, has been discontinued on pulmonology recommendation as there is no supporting evidence of ongoing pneumonia
- Patient underwent left-sided thoracentesis of 1.45 L of transudative fluid. Fluid analysis reports reviewed. Fluid culture has been negative for any growth
- Patient underwent right-sided thoracentesis of 1.1 L of transudative fluid.
- Patient underwent left-sided thoracentesis of 1.75 L on 06/29/24 --> suspected pseudoexudate
- CPT added to treatment regimen to help pulm toileting
- Respiratory culture growing pansensitive Pseudomonas, Zosyn -- completed 7 days of antibiotics
- Chest x-ray continue to show residual left-sided effusion with some loculation
- Patient had episode of nausea/vomiting recently with concern of repeat aspiration (in setting of poor cough reflex and excessive secretion) and oxygen requirement increased --> but now down to 1 to 2 L NC
- Discussed with pulmonology
- While hospitalized, continue nebulized 3% saline 3 times daily as well as albuterol 3 times daily to help with airway clearance
- Cough is stronger now
2. Cardiac arrest - Asystole
Vent dependent respiratory failure - resolved
Acute hypoxic resp failure
- possible multifactorial with hypoxia from pulmonary congestion with bradycardia/hypercalcemia
- part of hypoxia that triggered cardiac arrest was also likely from volume overload when getting first PRBC.
- required 1 epi and 1 round CPR with ROSC achieved in 3min
- Intubated during the code
- Post intubation CXR reviewed persistent homogeneous retrocardiac left lower lobe opacity.
3. Elevated troponin
NSTEMI
-Troponin max of 10.7
-Heparin drip discontinued previously this hospitalization
-TTE showing EF 50-55%
-No plan for any cath at this point
-Medical management with Aspirin and Statin
-No beta dany due to bradycardia
4. Acute on chronic heart failure with reduced ejection fraction
- proBNP>[id number]
- Echo for 06/22/24
- volume management by HD
- Patient makes some urine and currently on IV Bumex as well
- Continue hold Carvedilol due to severe bradycardia
5. Sinus bradycardia with first-degree block - improving
- Patient heart rate was in 30s and patient was encephalopathic on morning of 06/22. started dopamine empirically despite hypoxia/hypoglycemia was likely reason for encephalopathy.
- Hypercalcemia possibly playing role
- Heart rate improved with improvement of hypercalcemia, pacemaker may not be warranted at this stage, continue monitoring
6. Hypercalcemia - Improving
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
Parathyroid adenoma
Vit D deficiency
- Difficult to explain, max of 13.7, suspecting tertiary hyperparathyroidism
- Patient on Cinacalcet 120mg MOWE before admission, dose increased to Cinacalcet 90 mg daily on 06/27
- PTH significantly elevated - 1022
- CT c/a/p showing enlarged parathryoid gland
- Got pamidronate 30mg x1 inj/ f/u response
- Thyroid US showing parathyroid adenoma -will benefit with eventual parathyroidectomy if family preferred and clinically appropriate
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
7. History of CVA with left hemiparesis, dysarthria and dysphagia
PEG TF dependent
- Continue tube feed as tolerated
8. ESRD on HD ( MWF )
Right IJ Hemodialysis Catheter
Anemia of Chronic Disease
- had full HD on 06/19/24
- Continue Renvela for hyperphosphatemia
- PAPITO to be provided for anemia
- Got 1 unit PRBC for hemoglobin of 6.9. Patient developed pulmonary congestion after finishing three fourths of blood transfusion yesterday.
- No reported luminal blood loss. Occult stool test neg
- Heparin drip has stopped at this point
- S/p 2 units of PRBC this admission. Continue providing PRBC as needed for hemoglobin less than 7
9. Anemia
-likely renal failure related
-If needed give blood transfusion only with dialysis moving forward
10. History of CVA with left hemiparesis, dysarthria and dysphagia
-Patient is not n.p.o. at baseline and is on PEG tube feeding
Severe calcific atherosclerotic plaque in the coronary arteries on CT Chest
Right chronically impacted humeral neck fracture -imaging finding on CT chest, needs to be verified with previous records
Hyponatremia
Recent Flu
Benign Hypertension
Hyperlipidemia
Carotid artery disease s/p R CEA
BPH
Depression
DVT Prophylaxis: Heparin SUBQ
Code Status: DNR/DNI -weigh and charge worker discussed with family on 06/25 -- patient also confirmed (on 07/01/24) to me that he is to continued on DNR/DNI status (he clearly stated on 07/01/24: no mechanical ventilation and no CPR)
Daughter Tawnya updated by Dr. Benedict Villarreal on 06/22 and 06/23 06/27
06/24/[address] Benedict Villarreal and patient's daughter at bedside. All questions answered regarding event leading up to cardiac arrest and further prognosis moving forward. After lengthy discussion family agreed for patient to
be switched to DNI once extubated. Dr. Soraya Villarreal clarified to patient family that patient have permanent risk of repeated aspiration/mucous plugging in light of history of stroke/altered physiology at this point. If patient continues to have
recurrent issues with pulmonary aspiration/hypoxia patient would be appropriate for hospice eventually.
Overall prognosis poor and family wants to discuss care plan with hospice (as information session) but is appropriate for hospice care at this stage.
Patient continues to remain high risk of aspiration as have significant secretions which patient not able to clear.
Anticipated Discharge: 24 - 48 hours
Subjective/Interval History
-
Date of Service: July 01, 2024
Patient was seen and examined. He was getting dialysis and denied any new symptoms or complaints.
Objective Data
-
Labs:
Laboratory Results
07/01/24
03:31
WBC 8.7
Hgb 8.7 L
Hct 25.2 L
Plt Count 217
Sodium 137
Potassium 3.9
Chloride 101
Carbon Dioxide 27
BUN 36 H
Creatinine 3.3 H
Glucose 82
Calcium 10.1
Vital Signs:
Vital Signs
Temp Pulse Resp BP Pulse Ox
97.5 F 78 18 128/79 96
07/01/24 11:50 07/01/24 12:49 07/01/24 12:49 07/01/24 11:30 07/01/24 12:49
I&O
06/30/24 07/01/24 07/02/24
06:59 06:59 06:59
Intake Total 425 / 425 1180 / 1180
Output Total 400 / 400
Balance 1180 / 1180
--- NOTE | 2024-07-01 16:20 | PN.CDI ---
CDI
- -
CDI:
Physician Documentation Request
Admit Date: 06/20/24 20:24
Dear Doctor,
Please review the following and provide your response in the progress notes.
Clinical Indicators:
06/27 Cardiology: 'Heart failure with recovered ejection fraction
- TTE 06/22/2024: LVEF 50-55%, normal RWM, reduced RV function, aortic sclerosis, trace TR'
06/30 Progress Note: 'Acute on chronic heart failure with reduced ejection fraction'
Due to conflicting documentation, Please provide further specificity regarding the most likely type of CHF you are evaluating, treating or monitoring.
Type
Systolic
Diastolic
Combined Systolic/Diastolic
Other
Use of terms such as suspected, likely, concern for, or probable (associated with a specific diagnosis that is being evaluated, monitored, or treated as if it exists) are acceptable and can be coded in the inpatient setting, when documented at the
time of discharge.
Thank you,
Jia Ya RN, BSN
CDI Specialist
[employer] [employer]
Please use your independent medical judgment in providing your response.
[2024-07-01 16:39] LABS: Glucose - Point of Care 109 mg/dl (70-99)
--- NOTE | 2024-07-01 16:41 | PTCARENOTE ---
AAO 2-3, drowsy at times. HD completed this am. PT / OT consult done- Did not get to chair. Freq weak moist cough- able to suction him self once he can get to back of his mouth. 95% on 2L- dropped once to 88% today when asleep. Recover on
arousal. Using acupella few times today- very weak force. Robitussin given x1. SR with freq. bigeminy, trigeminy, random freq PVCs/ BBC. BP 130-170/70-90s - cardiac meds on hold at this time.- monitoring. Peg with tube feeds at goal min
residuals. Site intact with few sutures. Incontinent loose stools x3 so far this shift. Miralax held this am. He says its from tube feeds. Anuric. Sacral decub foams unable to keep stool from entering- trial duoderm this pm. Turning q 2
[2024-07-01] MEDS: CRESTOR 20 MG TUBE (18:12)
[2024-07-01] MEDS: MELATONIN 5 MG TUBE (20:48)
[2024-07-01] MEDS: FOLVITE 2 MG TUBE (20:49)
[2024-07-01] MEDS: CALCIMAR/CALCITONIN 400 UNITS/ 2 ML SC (21:15)
--- NOTE | 2024-07-01 21:25 | PTCARENOTE ---
Patient aaox3 at start of shift, able to make needs known and using call pérez appropriately. Patient is KETCHIKAN b/l, affect appropriate. NSR on the monitor with PVCs in bigeminy and trigeminy. Positive pulses to b/l radial and pedal pulses. Lung sounds
with coarse rhonchi throughout, patient producing large amounts of thin sputum, using suction to clear secretions. Nepro running at goal of 50ml/hr with 25ml flush. TFR 20ml at this time. Patient remains anuric. Repositioned for comfort and pressure
relief with use of pillow. Right midline intact. Will continue to monitor patient closely.
[2024-07-02] VITALS (29 sets, daily range): BP systolic 149–172; BP diastolic 69–103; BMI 21.6
[2024-07-02 00:24] LABS: Glucose - Point of Care 98 mg/dl (70-99)
[2024-07-02 05:13] LABS: Hematocrit 28.9 % (39.0-52.0); Hemoglobin 9.5 g/dL (13.0-18.0); Mean Corp Hgb Conc. 32.9 g/dL (33.0-37.0); Mean Corpuscular Hgb 29.9 pg (27.0-31.0); Mean Corpuscular Volume 90.9 fL (80.0-94.0); Mean Platelet Volume 8.3 fL (7.4-10.4); Platelet Count 264 10^3/uL (130-400); Red Blood Cell Count 3.18 10^6/uL (4.70-6.10); Red Cell Dist. Width 15.3 % (11.5-14.5); White Blood Cell Count 9.2 10^3/uL (4.8-10.8)
[2024-07-02 05:32] LABS: Blood Urea Nitrogen 25 mg/dl (9-20); Calcium 10.4 mg/dl (8.4-10.2); Carbon Dioxide 27 mmol/L (22-30); Chloride 101 mmol/L (98-107); Estimated Creatinine Clearance 28 ml/min; Glucose 112 mg/dl (70-99); Magnesium 2.2 mg/dl (1.6-2.3); Potassium 3.5 mmol/L (3.5-5.1); Sodium 138 mmol/L (135-145)
[2024-07-02] MEDS: VENTOLIN NEBULES 2.5 MG INH ×3 (07:48→20:09)
[2024-07-02] MEDS: SODIUM CHLORIDE 3% FOR INHALATION 1 VIAL INH ×3 (07:48→20:09)
[2024-07-02] MEDS: SENSIPAR 90 MG TUBE (08:18)
[2024-07-02] MEDS: HEPARIN 5000 UNITS SC ×2 (08:18→20:00)
[2024-07-02] MEDS: PREVACID 15 MG TUBE (08:19)
[2024-07-02] MEDS: WELLBUTRIN REGULAR RELEASE 150 MG TUBE ×2 (08:19→20:01)
[2024-07-02] MEDS: LOW STRENGTH ASPIRIN 81 MG TUBE (08:19)
[2024-07-02] MEDS: MIRALAX TUBE ×2 (08:20→08:23)
[2024-07-02] MEDS: TYLENOL 650 MG TUBE (08:20)
[2024-07-02 08:27] LABS: Glucose - Point of Care 118 mg/dl (70-99)
--- NOTE | 2024-07-02 10:58 | W.PN.PUL3 ---
Today's Communication / Plan
-
From the pulmonary perspective continue with current care 3% saline, albuterol nebulizers
Acapella device as able
Chest x-ray if there is decompensation to follow-up on pleural effusions
Upon discharge: May discharge on albuterol nebulizer to aid with secretion clearance.
Aspiration precautions
Agree with discharge planning
Sign off
Assessment
-
Patient is a 60-year-old gentleman with known history of carotid artery disease status post right CEA in the past, end-stage renal disease on hemodialysis, hypertension, hyperlipidemia, congestive heart failure with reduced ejection fraction of 40
to 45% as well as history of stroke in the past, who was brought from the custodial facility for worsening shortness of breath. Patient reportedly has been feeling short of breath over the last couple of weeks which has been progressively
getting worse. Reported diagnosis of low enzymes patient has been on Tamiflu. In view of worsening respiratory status he was transferred to the emergency room for further workup. Imaging in the emergency room showing showed near complete collapse
of the left lung with large pleural effusion as well as moderate pleural effusion on the right side. Patient also was noted to have significantly elevated troponin along with sinus bradycardia. Patient was started on broad-spectrum antibiotics,
aspirin as well as heparin drip for suspected NSTEMI and was admitted to hospitalist service.
In view of large effusion, interventional radiology and pulmonary service were requested for further input. Patient had thoracentesis performed with gradual improvement. Patient subsequently had a cardiopulmonary arrest and required CPR on 06/23
and CODE STATUS was reversed from DNR to full code. Patient was intubated for 2 days and it was felt to be related to mucous plug obstructing left main bronchus. Patient was successfully extubated on 06/25.
#1. Bilateral pleural effusion, left greater than right. Improved after bilateral thoracenteses-left - 06/21/2024-1450 mL, right 1100 mL-transudative on both thoracenteses procedures.
Repeat left-sided thoracentesis 06/29, 1750 ml removed
- Effusions are felt to be related to underlying congestive heart failure, and ESRD with volume overload.
- Transudate on 06/22. Suspect pseudo exudate on 06/29.
- Continue volume control with hemodialysis as tolerated
- Repeat chest x-ray 06/29/2024: Showed no reaccumulation. Bilateral increased interstitial markings suggestive of pulmonary edema.
- Continue to monitor clinically-as needed chest x-ray depending on clinical situation.
#2. Aspiration risk with poor cough and mucous plug obstructing left mainstem bronchus leading to cardiopulmonary arrest.
- Patient intubated 06/23, extubated 06/25
Continues to have a wet cough. Rhonchi on exam. Not bronchospastic
- Continue nebulized 3% saline 3 times daily as well as albuterol 3 times daily to help with airway clearance- while in the hospital.
-Upon discharge can transition to albuterol nebulizers as needed.
- Continue flutter valve-this was encouraged.
- Patient's cough appears to be stronger now and is able to clear his airway
- Increase activity as tolerated
- Continue n.p.o. status, patient currently fed via PEG tube post CVA- risk of aspiration.
- Pseudomonas noted on sputum, completed 7 days of antibiotics, suspect colonization rather than pneumonia. CT scan reviewed, more suggestive of compression atelectasis due to pleural fluid rather than rai consolidation.
#3. Acute on chronic heart failure with preserved ejection fraction. EF 50 to 55% with severely dilated left atrium and moderately dilated right atrium.
- Continue HD support to help with volume removal
#4. End-stage renal disease on hemodialysis Saturday
- Nephrology service on case
- Hypercalcemia noted, likely will need parathyroidectomy once he is more stable
- Cachectic: Continue Tube feedings as able to
Other medical issues:
- NSTEMI. No chest pain. on ASA/Statins. medical management
- History of CVA with left hemiparesis, dysarthria and dysphagia. Patient is not n.p.o. at baseline and is on PEG tube feeding
- Sinus bradycardia with first degree heart block. Cardiology service in place. Coreg on hold.
- End-stage renal disease, on hemodialysis. Patient has a right upper chest permacath in place.
Agree with discharge planning.
No additional recommendation from the pulmonary perspective.
Please call if there is a change on respiratory status.
Family meeting
Dr. Garcia met with patient's daughter as well as ex-. Goals of care discussions took place in the presence of palliative care nurse. Patient's family requesting medical team to discuss again with the patient regarding his CODE STATUS and
wishes in future as he had been DNR/DNI in the past but was temporarily intubated in the setting of mucous plug.
Data:
CXR 05/2024: 1. Near complete opacification of the left hemithorax which is likely secondary to a large left pleural effusion and airspace consolidation (compressive atelectasis or pneumonia).
2. Moderate ground-glass opacity in the infrahilar right lower lung which could be subsegmental atelectasis or pneumonia.
3. Right IJ hemodialysis catheter in place.
4. Chronic impacted fracture of the right humeral neck.
CT Chest 05/2024: 1. Complete endobronchial obstruction of the left mainstem bronchus containing layering secretions. SEVERE NEAR COMPLETE AIRSPACE CONSOLIDATION of the LEFT UPPER and LOWER LOBES (either atelectasis or pneumonia).
2. LARGE LEFT PLEURAL EFFUSION.
3. Moderate to large right pleural effusion.
4. Moderate to severe cardiomegaly.
5. Severe calcific atherosclerotic plaque in the coronary arteries.
6. Right IJ hemodialysis catheter in place.
7. Chronic impacted fracture of the right proximal humerus.
Subjective Data
-
Date of Service:
Date of Service: July 02, 2024
Chief Complaint: Pulmonary Follow Up (Hypoxemic respiratory failure-bilateral pleural effusion)
Subjective:
Continues to have a wet cough.
No significant phlegm production
Remains on 2 L supplemental oxygen
Review of Systems
Cardiopulmonary: Dyspnea (None at rest)
Objective Data
Data Reviewed
Vital Signs / I&O / Oxygen:
Vital Signs
Temp Pulse Resp BP Pulse Ox
98.0 F 77 18 149/71 95
07/02/24 07:23 07/02/24 07:54 07/02/24 07:54 07/02/24 07:00 07/02/24 07:54
Intake and Output
07/01/24 07/02/24 07/03/24
06:59 06:59 06:59
Intake Total 1180 / 1180 1040 / 1040
Balance 1180 / 1180 1040 / 1040
SaO2 [CPAP] 99
SaO2 [A/C] 99
SaO2 95
Nasal Cannula flow liters per 2
minute
Physical Exam
General: Comfortable and T Max
HEENT: Normocephalic, Anicteric and Moist Mucous Membranes
Cardiovascular: S1-S2 and Peripheral Edema (Trace lower extremity edema bilaterally)
Respiratory: Rhonchi (Bilaterally, mild, unchanged ) and Non-Labored Respirations
GI: Soft, Non Distended, Non Tender and Normal Bowel Sounds
Neurology: Tremors (negative) and Lethargic (Easily arousable to voice and following commands)
Skin: Warm and Dry
Labs/Micro/Reports
Lab Data
07/02/24 04:58
07/02/24 04:58
Microbiology
06/29/24 08:24 Pleural Fluid Body Fluid Culture - Final
No Growth After 72 Hours
06/29/24 08:24 Pleural Fluid Gram Stain - Final
06/29/24 08:24 Pleural Fluid Fungal Culture - Preliminary
Culture in progress.
Positive cultures are reported as soon as detected.
Final report to follow in four to five weeks.
--- NOTE | 2024-07-02 11:01 | WOUNDNOTE ---
[facility] RN NOTE: Patient visited for new stage 2 PI of sacral coccyx. Upon assessment patient has new stage 2 PI to coccyx. See worklist for measurements and details. Wound bed is pink and surrounding skin is blanchable. Bony prominence of sacrum was
intact. Will recommend keeping open area and bony prominence covered with 5 layer silicone foam. Patient positioned on right semi-side lying position, with heels off-loaded with pillows under calves. Z Foam cushion provided for increased off-loading
of sacrum. Instruction on Z-foam use was given to patient and RNKathy. Right heel with dried skin still attached to heel. Vaseline and silicone foam applied to right heel. Left heel slightly boggy, no-sting barrier and adhesive foam applied.
Patient continues with Peg tube feeds and turning schedule. Patient has several comorbidities including ESRD. Wounds may worsen and new wounds may develop even with optimal care. Will continue to follow during in-patient stay.
--- NOTE | 2024-07-02 11:44 | W.PN.NEPH.PH ---
Today's Communication / Plan
-
Dialysis tomorrow
Assessment/Plan
-
Impression:
ESRD MWF
Hypoxia/left lung atelectasis versus pneumonia
Large left pleural effusion s/p thoracentesis 06/21
CHF
Anemia
Hypertension hx
Hyponatremia
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
Hyperphosphatemia
PEG
Non-ST elevation ID
History of stroke with subsequent left hemiparesis dysarthria and dysphagia
Tunneled right HD IJ catheter
Chronic impacted right proximal humerus fracture
hypercalcemia
Plan:
Sensipar 90mg daily= calcium improvement
dc calcitonin course
follow BMP
HD tomorrow
-
-
Date of Service: July 02, 2024
CC / HPI / ROS
-
Chief Complaint:
ESRD
History of Present Illness:
hemodynamically stable
Calcium improving
Review of Systems:
No chest pain or shortness of breath
No fever
Labs
-
Labs:
WBC 9.2 10^3/uL (4.8-10.8) 07/02/24 04:58
RBC 3.18 10^6/uL (4.70-6.10) L 07/02/24 04:58
Hgb 9.5 g/dL (13.0-18.0) L 07/02/24 04:58
Hct 28.9 % (39.0-52.0) L 07/02/24 04:58
Plt Count 264 10^3/uL (130-400) D 07/02/24 04:58
Sodium 138 mmol/L (135-145) 07/02/24 04:58
Potassium 3.5 mmol/L (3.5-5.1) 07/02/24 04:58
Chloride 101 mmol/L (98-107) 07/02/24 04:58
Carbon Dioxide 27 mmol/L (22-30) 07/02/24 04:58
BUN 25 mg/dl (9-20) H 07/02/24 04:58
Creatinine 2.5 mg/dL (0.7-1.3) H 07/02/24 04:58
eGFR 27.30 07/02/24 04:58
Glucose 112 mg/dl (70-99) H 07/02/24 04:58
Calcium 10.4 mg/dl (8.4-10.2) H 07/02/24 04:58
Phosphorus 2.5 mg/dl (2.5-4.5) 06/22/24 12:03
Zzb-M-Wfrocptfztx Pept > 81309 pg/ml 06/20/24 18:13
Albumin 2.3 g/dl (3.5-5.0) L 06/25/24 04:13
Physical Exam
-
Vital Signs:
Vital Signs
Temp Pulse Resp BP Pulse Ox
98.2 F 77 18 149/71 95
07/02/24 11:18 07/02/24 07:54 07/02/24 07:54 07/02/24 07:00 07/02/24 07:54
Cardiovascular:: Regular rate and rhythm
Respiratory:: Bilateral: Coarse
Lung Excursion:: Normal
Abdomen:: Nontender and Soft
Bowel Sounds:: Normal
Extremity Edema:: None: Bilateral:
--- NOTE | 2024-07-02 12:33 | W.PN.HOSP.TC ---
Today's Communication/Plan
-
Continue Pulmonary Toilet
Monitor in IMU
Assessment / Plan
Assessment / Plan
Physical Exam
General: Comfortable
HEENT: Normocephalic
Respiratory: Rhonchi (increased secretion)
Cardiac: Regular Rhythm and S1/S2; Negative Murmur or Rub
GI: Soft, Nontender and Peg Tube
Musculoskeletal: No Edema
Neuro: Awake, Alert and No Motor Deficits
Psych: Calm

CT chest
1. Complete endobronchial obstruction of the left mainstem bronchus containing layering secretions. SEVERE NEAR COMPLETE AIRSPACE CONSOLIDATION of the LEFT UPPER and LOWER LOBES (either atelectasis or pneumonia).
2. LARGE LEFT PLEURAL EFFUSION.
3. Moderate to large right pleural effusion.
4. Moderate to severe cardiomegaly.
5. Severe calcific atherosclerotic plaque in the coronary arteries.
6. Right IJ hemodialysis catheter in place.
7. Chronic impacted fracture of the right proximal humerus.
CT c/a/p
Moderate bilateral pleural effusions, right larger than left. Both improved.
Mild right lower lobe consolidation. Stable. Moderate left lower lobe consolidation. Improved. Both concerning for pneumonia.
Mild cardiomegaly. Improved.
Enhancing mass posterior to the left thyroid gland. Differential includes exophytic thyroid nodule, parathyroid mass and lymphadenopathy. Thyroid ultrasound recommended.
Bilateral adrenal hyperplasia. Stable
Mild bilateral renal atrophy.
Mild abdominopelvic ascites.
Moderate diffuse bladder wall thickening. This can be seen with cystitis or bladder outlet obstruction.
Mild prostate hypertrophy.
Findings suggestion moderate volume overload or third spacing.
T7 and T11 compression fractures. Stable. L1 area not imaged previously for comparison

1. Left mainstem bronchus obstruction from secretions
Aspiration risk with poor cough and mucous plug obstructing left mainstem bronchus
Bilateral pleural effusion - felt to be related to underlying congestive heart failure, and ESRD with volume overload
Compression atelectasis
Pseudomonal aspiration pneumonia
Mild Pulmonary Edema
- Patient with history of CVA/PEG tube and on tube feeding
- Patient was on cefepime, has been discontinued on pulmonology recommendation as there is no supporting evidence of ongoing pneumonia
- Patient underwent left-sided thoracentesis of 1.45 L of transudative fluid. Fluid analysis reports reviewed. Fluid culture has been negative for any growth
- Patient underwent right-sided thoracentesis of 1.1 L of transudative fluid.
- Patient underwent left-sided thoracentesis of 1.75 L on 06/29/24 --> suspected pseudoexudate
- CPT added to treatment regimen to help pulm toileting
- Respiratory culture growing pansensitive Pseudomonas (suspected colonization rather than infection), Zosyn -- completed 7 days of antibiotics
- Chest x-ray continue to show residual left-sided effusion with some loculation
- Patient had episode of nausea/vomiting recently with concern of repeat aspiration (in setting of poor cough reflex and excessive secretion) and oxygen requirement increased --> but now down to 1 to 2
L NC
- Continue flutter valve
- While hospitalized, continue nebulized 3% saline 3 times daily as well as albuterol 3 times daily to help with airway clearance
- On discharge, can send patient on Albuterol nebulizer to aid with secretion clearance
- Cough is stronger now
2. Cardiac arrest - Asystole
Vent dependent respiratory failure - resolved
Acute hypoxic resp failure
- possible multifactorial with hypoxia from pulmonary congestion with bradycardia/hypercalcemia
- part of hypoxia that triggered cardiac arrest was also likely from volume overload when getting first PRBC.
- required 1 epi and 1 round CPR with ROSC achieved in 3min
- Intubated during the code
- Post intubation CXR reviewed persistent homogeneous retrocardiac left lower lobe opacity.
3. Elevated troponin
NSTEMI
-Troponin max of 10.7
-Heparin drip discontinued previously this hospitalization
-TTE showing EF 50-55%
-No plan for any cath at this point
-Medical management with Aspirin and Statin
-No beta dany due to bradycardia
4. Acute on chronic heart failure with recovered and diastolic ejection fraction
- proBNP>[id number]
- Echo for 06/22/24
- volume management by HD
- Patient makes some urine
- Continue hold Carvedilol due to severe bradycardia
5. Sinus bradycardia with first-degree block - improving
- Patient heart rate was in 30s and patient was encephalopathic on morning of 06/22. started dopamine empirically despite hypoxia/hypoglycemia was likely reason for encephalopathy.
- Hypercalcemia possibly playing role
- Heart rate improved with improvement of hypercalcemia, pacemaker may not be warranted at this stage, continue monitoring
6. Hypercalcemia - Improving
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
Parathyroid adenoma
Vit D deficiency
- Difficult to explain, max of 13.7, suspecting tertiary hyperparathyroidism
- Patient on Cinacalcet 120mg MOWE before admission, dose increased to Cinacalcet 90 mg daily on 06/27
- Stop Calcitonin
- PTH significantly elevated - 1022
- CT c/a/p showing enlarged parathryoid gland
- Got pamidronate 30mg x1 inj/ f/u response
- Thyroid US showing parathyroid adenoma -will benefit with eventual parathyroidectomy if family preferred and clinically appropriate
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
7. History of CVA with left hemiparesis, dysarthria and dysphagia
PEG TF dependent
- Continue tube feed as tolerated
8. ESRD on HD ( MWF )
Right IJ Hemodialysis Catheter
Anemia of Chronic Disease
- had full HD on 06/19/24
- Continue Renvela for hyperphosphatemia
- PAPITO to be provided for anemia
- Got 1 unit PRBC for hemoglobin of 6.9. Patient developed pulmonary congestion after finishing three fourths of blood transfusion yesterday.
- No reported luminal blood loss. Occult stool test neg
- Heparin drip has stopped at this point
- S/p 2 units of PRBC this admission. Continue providing PRBC as needed for hemoglobin less than 7
9. Anemia
-likely renal failure related
-If needed give blood transfusion only with dialysis moving forward
10. History of CVA with left hemiparesis, dysarthria and dysphagia
-Patient is not n.p.o. at baseline and is on PEG tube feeding
Severe calcific atherosclerotic plaque in the coronary arteries on CT Chest
Right chronically impacted humeral neck fracture -imaging finding on CT chest, needs to be verified with previous records
Hyponatremia
Recent Flu
Benign Hypertension
Hyperlipidemia
Carotid artery disease s/p R CEA
BPH
Depression
DVT Prophylaxis: Heparin SUBQ
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
Daughter Tawnya updated by Dr. Benedict Villarreal on 06/22 and 06/23 06/27
06/24/[address] Benedict Villarreal and patient's daughter at bedside. All questions answered regarding event leading up to cardiac arrest and further prognosis moving forward. After lengthy discussion family agreed for patient to
be switched to DNI once extubated. Dr. Soraya Villarreal clarified to patient family that patient have permanent risk of repeated aspiration/mucous plugging in light of history of stroke/altered physiology at this point. If patient continues to have
recurrent issues with pulmonary aspiration/hypoxia patient would be appropriate for hospice eventually.
Overall prognosis poor and family wants to discuss care plan with hospice (as information session) but is appropriate for hospice care at this stage.
Patient continues to remain high risk of aspiration as have significant secretions which patient not able to clear.
Anticipated Discharge: > 48 hours
Subjective/Interval History
-
Date of Service: July 02, 2024
Patient was seen and examined. He denied any chest pain, shortness of breath or any other complaints.
Objective Data
-
Labs:
Laboratory Results
07/02/24
04:58
WBC 9.2
Hgb 9.5 L
Hct 28.9 L
Plt Count 264 D
Sodium 138
Potassium 3.5
Chloride 101
Carbon Dioxide 27
BUN 25 H
Creatinine 2.5 H
Glucose 112 H
Calcium 10.4 H
Vital Signs:
Vital Signs
Temp Pulse Resp BP Pulse Ox
98.2 F 77 18 149/71 95
07/02/24 11:18 07/02/24 07:54 07/02/24 07:54 07/02/24 07:00 07/02/24 07:54
I&O
07/01/24 07/02/24 07/03/24
06:59 06:59 06:59
Intake Total 1180 / 1180 1040 / 1040
Balance 1180 / 1180 1040 / 1040
--- NOTE | 2024-07-02 16:06 | CM ---
Patient from [facility] with Hx ESRD on HD, CVA w left hemiparesis, PEG tube feedings with Dx suspected NSTEMI, cardiopulmonary arrest 06/23, HF. O2 2L. Seen by wound care nurse. PT/OT; requires assist of 2, recommend skilled rehab.
SNF referrals placed for 5 SNFs in the [place] area with therapy notes added.
Spoke with [facility]; both [facility] and [facility] has in-house dialysis.
Phone call to [facility]; left message requesting review/response to referral.
Spoke with Janay Shah at [facility], [place] (cell ph [phone]); they will review/respond to referral. She is unsure if they have a truck terminal manager HD chair available- if a patient discharges tomorrow as scheduled she will have 1
open HD chair.
Plan follow up with [facility].
[2024-07-02 16:23] LABS: Glucose - Point of Care 119 mg/dl (70-99)
[2024-07-02] MEDS: CRESTOR 20 MG TUBE (18:04)
[2024-07-02] MEDS: COZAAR 25 MG TUBE (18:04)
[2024-07-02] MEDS: MELATONIN 5 MG TUBE (20:01)
[2024-07-02] MEDS: FOLVITE 2 MG TUBE (20:01)
--- NOTE | 2024-07-02 22:38 | PTCARENOTE ---
Patient aaox3, denies pain when at rest, discomfort noted with repositioning at times. NSR on the monitor with PVC; bigeminy and trigeminy, no edema noted. Lung sounds remain coarse rhonchi throughout, pox 99% on 2L. Nepro remains at goal of 50ml
with 25ml flush, 10ml TFR. Patient continues to use yankauer to suction secretions ad minerva. Sacral dressing c/d/i at this time. Patient using call pérez appropriately, will continue to monitor patient closely.
[2024-07-02] MEDS: ZOFRAN 4 MG IV (23:50)
[2024-07-03] VITALS (63 sets, daily range): BP systolic 130–162; BP diastolic 62–98; PULSE 67–70; O2SAT 100; BMI 20.9
[2024-07-03 00:12] LABS: Glucose - Point of Care 105 mg/dl (70-99)
--- NOTE | 2024-07-03 00:58 | PTCARENOTE ---
Patient has medium, soft brown bm, care provided. Patients pox 88% sustained on 2L o2. Patient with no s/s of respiratory distress, denies sob or dyspnea. RN contacted Shar, RT and increased o2 to 4L. Patient pox increased to 95% on 4L o2. Will
continue to monitor pt closely.
--- NOTE | 2024-07-03 03:03 | PTCARENOTE ---
Patient sustaining 100% pox on 4L o2 n/c. Weaned down to 2L 02 and pox 98%. Will monitor and adjust accordingly.
[2024-07-03 04:22] LABS: Hematocrit 26.9 % (39.0-52.0); Hemoglobin 8.9 g/dL (13.0-18.0); Mean Corp Hgb Conc. 33.1 g/dL (33.0-37.0); Mean Corpuscular Hgb 30.3 pg (27.0-31.0); Mean Corpuscular Volume 91.5 fL (80.0-94.0); Mean Platelet Volume 8.2 fL (7.4-10.4); Platelet Count 257 10^3/uL (130-400); Red Blood Cell Count 2.94 10^6/uL (4.70-6.10); Red Cell Dist. Width 15.7 % (11.5-14.5); White Blood Cell Count 8.9 10^3/uL (4.8-10.8)
[2024-07-03 04:49] LABS: Blood Urea Nitrogen 41 mg/dl (9-20); Calcium 10.6 mg/dl (8.4-10.2); Carbon Dioxide 29 mmol/L (22-30); Chloride 100 mmol/L (98-107); Estimated Creatinine Clearance 20 ml/min; Glucose 107 mg/dl (70-99); Potassium 3.5 mmol/L (3.5-5.1); Sodium 139 mmol/L (135-145); eGFR 18.23
[2024-07-03] MEDS: SODIUM CHLORIDE 3% FOR INHALATION 1 VIAL INH ×3 (07:20→19:46)
[2024-07-03] MEDS: VENTOLIN NEBULES 2.5 MG INH ×3 (07:20→19:45)
--- NOTE | 2024-07-03 07:25 | PN.CDI ---
CDI
- -
CDI:
Physician Documentation Request
Admit Date: 06/20/24 20:24
Dear Doctor,
Please review the following and provide your response in the progress notes.
Clinical Indicators:
07/02 WO RN: 'Patient visited for new stage 2 PI of sacral coccyx.'
Physician documentation of the type and location of wounds is required for compliant documentation. Based on the above clinical findings and your assessment, please provide the following in your progress note:
1. Location of the ulcer/wound, including laterality.
2. Type (etiology) of ulcer/wound:
Sacral coccyx pressure injury
Sacral coccyx non-pressure injury
Other
Use of terms such as suspected, likely, concern for, or probable (associated with a specific diagnosis that is being evaluated, monitored, or treated as if it exists) are acceptable and can be coded in the inpatient setting, when documented at the
time of discharge.
Thank you,
Jia Ya RN, BSN
CDI Specialist
[place] [employer]
Please use your independent medical judgment in providing your response.
*Source: National Pressure Ulcer Advisory Panel (NPUAP)
[2024-07-03] MEDS: MIRALAX TUBE (08:06)
[2024-07-03] MEDS: SENSIPAR 90 MG TUBE (08:07)
[2024-07-03] MEDS: PREVACID 15 MG TUBE (08:07)
[2024-07-03] MEDS: WELLBUTRIN REGULAR RELEASE 150 MG TUBE ×2 (08:07→21:33)
[2024-07-03] MEDS: HEPARIN 5000 UNITS SC ×2 (08:07→21:33)
[2024-07-03] MEDS: LOW STRENGTH ASPIRIN 81 MG TUBE (08:08)
[2024-07-03] MEDS: RETACRIT 10000 UNITS IV (10:14)
--- NOTE | 2024-07-03 11:03 | W.PN.NEPH.HD ---
Assessment
-
Seen on dialysis tolerating
Progress Note - Hemodialysis
-
Date of Service: July 03, 2024
Duration: 30 minutes and 3 hours
Potassium Bath: 2
Calcium Bath: 2.5
Opti-Dialyzer: 160
Ultrafiltration: Other (2)
Blood Flow: 400
Dialysate Flow: 600
Heparin: 0
EPO: [id number] units
--- NOTE | 2024-07-03 13:29 | CM ---
Patient from [facility] with Hx ESRD on HD, CVA w left hemiparesis, PEG tube feedings with Dx NSTEMI, cardiac arrest, HF. O2 2L. Seen by wound care nurse. PT/OT 07/01; requires assist of 2, recommend skilled rehab.
[facility]oke with [facility] (ph [phone]); they could only accept for STR but not for LTC. As LTC is needed they have to decline.
Spoke with [facility] (ph [phone], x [phone]); she needs to check to see if they have a rehab bed, a LTC bed and an available HD chair.
Spoke with [facility] (ph [phone]); [facility] may have an available bed & HD chair. She needs to speak with daughter about LTC application- provided daughter's #. [facility] does not has STR & LTC bed with in-house
HD chair available.
Plan follow up with [place] and [facility].
Plan continued CM efforts for SNF with in-house HD in the [place] area.
--- NOTE | 2024-07-03 16:01 | W.PN.HOSP.TC ---
Today's Communication/Plan
-
Placement pending
Assessment / Plan
Assessment / Plan
Physical Exam
General: Comfortable
HEENT: Normocephalic
Respiratory: Rhonchi (increased secretion)
Cardiac: Regular Rhythm and S1/S2; Negative Murmur or Rub
GI: Soft, Nontender and Peg Tube
Musculoskeletal: No Edema
Neuro: Awake, Alert and No Motor Deficits
Psych: Calm

CT chest
1. Complete endobronchial obstruction of the left mainstem bronchus containing layering secretions. SEVERE NEAR COMPLETE AIRSPACE CONSOLIDATION of the LEFT UPPER and LOWER LOBES (either atelectasis or pneumonia).
2. LARGE LEFT PLEURAL EFFUSION.
3. Moderate to large right pleural effusion.
4. Moderate to severe cardiomegaly.
5. Severe calcific atherosclerotic plaque in the coronary arteries.
6. Right IJ hemodialysis catheter in place.
7. Chronic impacted fracture of the right proximal humerus.
CT c/a/p
Moderate bilateral pleural effusions, right larger than left. Both improved.
Mild right lower lobe consolidation. Stable. Moderate left lower lobe consolidation. Improved. Both concerning for pneumonia.
Mild cardiomegaly. Improved.
Enhancing mass posterior to the left thyroid gland. Differential includes exophytic thyroid nodule, parathyroid mass and lymphadenopathy. Thyroid ultrasound recommended.
Bilateral adrenal hyperplasia. Stable
Mild bilateral renal atrophy.
Mild abdominopelvic ascites.
Moderate diffuse bladder wall thickening. This can be seen with cystitis or bladder outlet obstruction.
Mild prostate hypertrophy.
Findings suggestion moderate volume overload or third spacing.
T7 and T11 compression fractures. Stable. L1 area not imaged previously for comparison

1. Left mainstem bronchus obstruction from secretions
Aspiration risk with poor cough and mucous plug obstructing left mainstem bronchus
Bilateral pleural effusion - felt to be related to underlying congestive heart failure, and ESRD with volume overload
Compression atelectasis
Pseudomonal aspiration pneumonia
Mild Pulmonary Edema
- Patient with history of CVA/PEG tube and on tube feeding
- Patient was on cefepime, has been discontinued on pulmonology recommendation as there is no supporting evidence of ongoing pneumonia
- Patient underwent left-sided thoracentesis of 1.45 L of transudative fluid. Fluid analysis reports reviewed. Fluid culture has been negative for any growth
- Patient underwent right-sided thoracentesis of 1.1 L of transudative fluid.
- Patient underwent left-sided thoracentesis of 1.75 L on 06/29/24 --> suspected pseudoexudate
- CPT added to treatment regimen to help pulm toileting
- Respiratory culture growing pansensitive Pseudomonas (suspected colonization rather than infection), Zosyn -- completed 7 days of antibiotics
- Chest x-ray continue to show residual left-sided effusion with some loculation
- Patient had episode of nausea/vomiting recently with concern of repeat aspiration (in setting of poor cough reflex and excessive secretion) and oxygen requirement increased --> but now down to 1 to 2
L NC
- Continue flutter valve
- While hospitalized, continue nebulized 3% saline 3 times daily as well as albuterol 3 times daily to help with airway clearance
- On discharge, can send patient on Albuterol nebulizer to aid with secretion clearance
- Cough is stronger now
2. Cardiac arrest - Asystole
Vent dependent respiratory failure - resolved
Acute hypoxic resp failure
- possible multifactorial with hypoxia from pulmonary congestion with bradycardia/hypercalcemia
- part of hypoxia that triggered cardiac arrest was also likely from volume overload when getting first PRBC.
- required 1 epi and 1 round CPR with ROSC achieved in 3min
- Intubated during the code
- Post intubation CXR reviewed persistent homogeneous retrocardiac left lower lobe opacity.
3. Elevated troponin
NSTEMI
-Troponin max of 10.7
-Heparin drip discontinued previously this hospitalization
-TTE showing EF 50-55%
-No plan for any cath at this point
-Medical management with Aspirin and Statin
-No beta dany due to bradycardia
4. Acute on chronic heart failure with recovered and diastolic ejection fraction
- proBNP>51866
- Echo for 06/22/24
- volume management by HD
- Patient makes some urine
- Continue hold Carvedilol due to severe bradycardia
5. Sinus bradycardia with first-degree block - improving
- Patient heart rate was in 30s and patient was encephalopathic on morning of 06/22. started dopamine empirically despite hypoxia/hypoglycemia was likely reason for encephalopathy.
- Hypercalcemia possibly playing role
- Heart rate improved with improvement of hypercalcemia, pacemaker may not be warranted at this stage, continue monitoring
6. Hypercalcemia - Improving
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
Parathyroid adenoma
Vit D deficiency
- Difficult to explain, max of 13.7, suspecting tertiary hyperparathyroidism
- Patient on Cinacalcet 120mg MOWE before admission, dose increased to Cinacalcet 90 mg daily on 06/27
- Stop Calcitonin
- PTH significantly elevated - 1022
- CT c/a/p showing enlarged parathryoid gland
- Got pamidronate 30mg x1 inj/ f/u response
- Thyroid US showing parathyroid adenoma -will benefit with eventual parathyroidectomy if family preferred and clinically appropriate
- Vit d 25 OH - 20 , discussed with assessment clinician replacement would be beneficial
7. History of CVA with left hemiparesis, dysarthria and dysphagia
PEG TF dependent
- Continue tube feed as tolerated
8. ESRD on HD ( MWF )
Right IJ Hemodialysis Catheter
Anemia of Chronic Disease
- had full HD on 06/19/24
- Continue Renvela for hyperphosphatemia
- PAPITO to be provided for anemia
- Got 1 unit PRBC for hemoglobin of 6.9. Patient developed pulmonary congestion after finishing three fourths of blood transfusion yesterday.
- No reported luminal blood loss. Occult stool test neg
- Heparin drip has stopped at this point
- S/p 2 units of PRBC this admission. Continue providing PRBC as needed for hemoglobin less than 7
9. Anemia
-likely renal failure related
-If needed give blood transfusion only with dialysis moving forward
10. History of CVA with left hemiparesis, dysarthria and dysphagia
-Patient is not n.p.o. at baseline and is on PEG tube feeding
Severe calcific atherosclerotic plaque in the coronary arteries on CT Chest
Right chronically impacted humeral neck fracture -imaging finding on CT chest, needs to be verified with previous records
Hyponatremia
Recent Flu
Benign Hypertension
Hyperlipidemia
Carotid artery disease s/p R CEA
BPH
Depression
DVT Prophylaxis: Heparin SUBQ
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
Daughter Tawnya updated by Dr. Benedict Villarreal on 06/22 and 06/23 06/27
06/24/[address] Benedict Villarreal and patient's daughter at bedside. All questions answered regarding event leading up to cardiac arrest and further prognosis moving forward. After lengthy discussion family agreed for patient to
be switched to DNI once extubated. Dr. Soraya Villarreal clarified to patient family that patient have permanent risk of repeated aspiration/mucous plugging in light of history of stroke/altered physiology at this point. If patient continues to have
recurrent issues with pulmonary aspiration/hypoxia patient would be appropriate for hospice eventually.
Overall prognosis poor and family wants to discuss care plan with hospice (as information session) but is appropriate for hospice care at this stage.
Patient continues to remain high risk of aspiration as have significant secretions which patient not able to clear.
Anticipated Discharge: > 48 hours
Subjective/Interval History
-
Date of Service: July 03, 2024
Patient was seen and examined. He was getting dialysis and denied any new symptoms or complaints.
Objective Data
-
Labs:
Laboratory Results
07/03/24
04:16
WBC 8.9
Hgb 8.9 L
Hct 26.9 L
Plt Count 257
Sodium 139
Potassium 3.5
Chloride 100
Carbon Dioxide 29
BUN 41 H
Creatinine 3.5 H
Glucose 107 H
Calcium 10.6 H
Vital Signs:
Vital Signs
Temp Pulse Resp BP Pulse Ox
97 F 66 18 141/83 99
07/03/24 11:10 07/03/24 13:52 07/03/24 13:52 07/03/24 11:30 07/03/24 13:52
I&O
07/02/24 07/03/24 07/04/24
06:59 06:59 06:59
Intake Total 1040 / 1040 1000 / 1000
Balance 1040 / 1040 1000 / 1000
[2024-07-03 16:33] LABS: Glucose - Point of Care 105 mg/dl (70-99)
[2024-07-03] MEDS: CRESTOR 20 MG TUBE (17:50)
[2024-07-03] MEDS: FOLVITE 2 MG TUBE (21:33)
[2024-07-03] MEDS: MELATONIN 5 MG TUBE (21:33)
[2024-07-03 23:50] LABS: Glucose - Point of Care 95 mg/dl (70-99)
[2024-07-04] VITALS (27 sets, daily range): BP systolic 144–167; BP diastolic 73–104; BMI 19.9
--- NOTE | 2024-07-04 00:28 | PTCARENOTE ---
Assumed care of pt from lucia RN. Pt aaox3 and [place]. NSR on monitor with BBB and PVCs. 95% on 2L. TF infusing through PEG tube, Nepro with carb steady @ 50 mL/hr and 25 mL/hr flush. Pt had small loose brown BM. Hygiene completed including CHG
wipes. Pt resting in bed with call pérez in reach.
[2024-07-04 03:27] LABS: Hematocrit 28.7 % (39.0-52.0); Hemoglobin 9.3 g/dL (13.0-18.0); Mean Corp Hgb Conc. 32.4 g/dL (33.0-37.0); Mean Corpuscular Volume 92.6 fL (80.0-94.0); Mean Platelet Volume 8.4 fL (7.4-10.4); Platelet Count 294 10^3/uL (130-400); Red Cell Dist. Width 15.8 % (11.5-14.5); White Blood Cell Count 9.2 10^3/uL (4.8-10.8)
[2024-07-04 03:52] LABS: Blood Urea Nitrogen 30 mg/dl (9-20); Calcium 10.3 mg/dl (8.4-10.2); Carbon Dioxide 32 mmol/L (22-30); Chloride 100 mmol/L (98-107); Estimated Creatinine Clearance 27 ml/min; Glucose 94 mg/dl (70-99); Potassium 3.5 mmol/L (3.5-5.1); Sodium 138 mmol/L (135-145)
[2024-07-04] MEDS: VENTOLIN NEBULES 2.5 MG INH ×3 (07:18→18:00)
[2024-07-04] MEDS: SODIUM CHLORIDE 3% FOR INHALATION 1 VIAL INH ×3 (07:18→18:00)
[2024-07-04] MEDS: MIRALAX TUBE (08:42)
[2024-07-04] MEDS: PREVACID 15 MG TUBE (08:43)
[2024-07-04] MEDS: WELLBUTRIN REGULAR RELEASE 150 MG TUBE ×2 (08:43→21:52)
[2024-07-04] MEDS: LOW STRENGTH ASPIRIN 81 MG TUBE (08:43)
[2024-07-04] MEDS: SENSIPAR 90 MG TUBE (08:43)
[2024-07-04] MEDS: HEPARIN 5000 UNITS SC ×2 (08:43→21:52)
--- NOTE | 2024-07-04 12:18 | W.PN.NEPH.PH ---
Today's Communication / Plan
-
HD Saturday
Assessment/Plan
-
Impression:
ESRD MWF
Hypoxia/left lung atelectasis versus pneumonia
Large left pleural effusion s/p thoracentesis 06/21
CHF
Anemia
Hypertension hx
Hyponatremia
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
Hyperphosphatemia
PEG
Non-ST elevation [place]
History of stroke with subsequent left hemiparesis dysarthria and dysphagia
Tunneled right HD IJ catheter
Chronic impacted right proximal humerus fracture
hypercalcemia
Plan:
Sensipar 90mg daily
follow BMP
HD Saturday
Await placement
-
-
Date of Service: July 04, 2024
CC / HPI / ROS
-
Chief Complaint:
ESRD
History of Present Illness:
hemodynamically stable
Calcium high 10.3
Tolerated dialysis yesterday
Review of Systems:
No chest pain or shortness of breath
No fever
Labs
-
Labs:
WBC 9.2 10^3/uL (4.8-10.8) 07/04/24 03:19
RBC 3.10 10^6/uL (4.70-6.10) L 07/04/24 03:19
Hgb 9.3 g/dL (13.0-18.0) L 07/04/24 03:19
Hct 28.7 % (39.0-52.0) L 07/04/24 03:19
Plt Count 294 10^3/uL (130-400) 07/04/24 03:19
Sodium 138 mmol/L (135-145) 07/04/24 03:19
Potassium 3.5 mmol/L (3.5-5.1) 07/04/24 03:19
Chloride 100 mmol/L (98-107) 07/04/24 03:19
Carbon Dioxide 32 mmol/L (22-30) H 07/04/24 03:19
BUN 30 mg/dl (9-20) H 07/04/24 03:19
Creatinine 2.5 mg/dL (0.7-1.3) H 07/04/24 03:19
eGFR 27.30 07/04/24 03:19
Glucose 94 mg/dl (70-99) 07/04/24 03:19
Calcium 10.3 mg/dl (8.4-10.2) H 07/04/24 03:19
Phosphorus 2.5 mg/dl (2.5-4.5) 06/22/24 12:03
Ahj-Z-Jrjhtfcamaz Pept > 68666 pg/ml 06/20/24 18:13
Albumin 2.3 g/dl (3.5-5.0) L 06/25/24 04:13
Physical Exam
-
Vital Signs:
Vital Signs
Temp Pulse Resp BP Pulse Ox
97.6 F 70 18 159/90 97
07/04/24 07:59 07/04/24 07:21 07/04/24 07:21 07/04/24 05:00 07/04/24 07:21
Cardiovascular:: Regular rate and rhythm
Respiratory:: Bilateral: CTA
Lung Excursion:: Normal
Abdomen:: Nontender and Soft
Bowel Sounds:: Normal
Extremity Edema:: None: Bilateral:
[2024-07-04] MEDS: ROXICODONE 2.5 MG PO (13:11)
[2024-07-04 13:21] LABS: Glucose - Point of Care 84 mg/dl (70-99)
--- NOTE | 2024-07-04 13:27 | PTCARENOTE ---
Addendum entered by Davida Del Rio RN 07/04/24 13:29:
Cannot verify accuracy of vital signs prior to 0700.
Original Note:
Assumed care of patient at beginning of this shift from previous RN with TF infusing at goal rate: jevity 1.5 at 50ml/hr and 25ml flush; patient tolerating. Patient incontinent of loose/liquid brown bm x2; Dr Yin made aware. See worklist for
full assessment and vital signs.
--- NOTE | 2024-07-04 16:13 | CHAP ---
Mr. Barnes requested a prayer, even though it was an effort for him to talk. Emotional and spiritual support provided.
[2024-07-04] MEDS: CRESTOR 20 MG TUBE (18:26)
[2024-07-04] MEDS: COZAAR 25 MG TUBE (18:27)
--- NOTE | 2024-07-04 19:26 | W.PN.HOSP.TC ---
Today's Communication/Plan
-
SNF placement pending
Continue to monitor in IMU given significant risk of respiratory decompensation
Assessment / Plan
Assessment / Plan
Physical Exam
General: Comfortable
HEENT: Normocephalic
Respiratory: Rhonchi (increased secretion)
Cardiac: Regular Rhythm and S1/S2; Negative Murmur or Rub
GI: Soft, Nontender and Peg Tube
Musculoskeletal: No Edema
Neuro: Awake, Alert and No Motor Deficits
Psych: Calm

CT chest
1. Complete endobronchial obstruction of the left mainstem bronchus containing layering secretions. SEVERE NEAR COMPLETE AIRSPACE CONSOLIDATION of the LEFT UPPER and LOWER LOBES (either atelectasis or pneumonia).
2. LARGE LEFT PLEURAL EFFUSION.
3. Moderate to large right pleural effusion.
4. Moderate to severe cardiomegaly.
5. Severe calcific atherosclerotic plaque in the coronary arteries.
6. Right IJ hemodialysis catheter in place.
7. Chronic impacted fracture of the right proximal humerus.
CT c/a/p
Moderate bilateral pleural effusions, right larger than left. Both improved.
Mild right lower lobe consolidation. Stable. Moderate left lower lobe consolidation. Improved. Both concerning for pneumonia.
Mild cardiomegaly. Improved.
Enhancing mass posterior to the left thyroid gland. Differential includes exophytic thyroid nodule, parathyroid mass and lymphadenopathy. Thyroid ultrasound recommended.
Bilateral adrenal hyperplasia. Stable
Mild bilateral renal atrophy.
Mild abdominopelvic ascites.
Moderate diffuse bladder wall thickening. This can be seen with cystitis or bladder outlet obstruction.
Mild prostate hypertrophy.
Findings suggestion moderate volume overload or third spacing.
T7 and T11 compression fractures. Stable. L1 area not imaged previously for comparison

1. Left mainstem bronchus obstruction from secretions
Aspiration risk with poor cough and mucous plug obstructing left mainstem bronchus
Bilateral pleural effusion - felt to be related to underlying congestive heart failure, and ESRD with volume overload
Compression atelectasis
Pseudomonal aspiration pneumonia
Mild Pulmonary Edema
- Patient with history of CVA/PEG tube and on tube feeding
- Patient was on cefepime, has been discontinued on pulmonology recommendation as there is no supporting evidence of ongoing pneumonia
- Patient underwent left-sided thoracentesis of 1.45 L of transudative fluid. Fluid analysis reports reviewed. Fluid culture has been negative for any growth
- Patient underwent right-sided thoracentesis of 1.1 L of transudative fluid.
- Patient underwent left-sided thoracentesis of 1.75 L on 06/29/24 --> suspected pseudoexudate
- CPT added to treatment regimen to help pulm toileting
- Respiratory culture growing pansensitive Pseudomonas (suspected colonization rather than infection), Zosyn -- completed 7 days of antibiotics
- Chest x-ray continue to show residual left-sided effusion with some loculation
- Patient had episode of nausea/vomiting recently with concern of repeat aspiration (in setting of poor cough reflex and excessive secretion) and oxygen requirement increased --> but now down to 1 to 2
L NC
- Continue flutter valve
- While hospitalized, continue nebulized 3% saline 3 times daily as well as albuterol 3 times daily to help with airway clearance
- On discharge, can send patient on Albuterol nebulizer to aid with secretion clearance
- Cough is stronger now
2. Cardiac arrest - Asystole
Vent dependent respiratory failure - resolved
Acute hypoxic resp failure
- possible multifactorial with hypoxia from pulmonary congestion with bradycardia/hypercalcemia
- part of hypoxia that triggered cardiac arrest was also likely from volume overload when getting first PRBC.
- required 1 epi and 1 round CPR with ROSC achieved in 3min
- Intubated during the code
- Post intubation CXR reviewed persistent homogeneous retrocardiac left lower lobe opacity.
3. Elevated troponin
NSTEMI
-Troponin max of 10.7
-Heparin drip discontinued previously this hospitalization
-TTE showing EF 50-55%
-No plan for any cath at this point
-Medical management with Aspirin and Statin
-No beta dany due to bradycardia
4. Acute on chronic heart failure with recovered and diastolic ejection fraction
- proBNP>[id number]
- Echo for 06/22/24
- volume management by HD
- Patient makes some urine
- Continue hold Carvedilol due to severe bradycardia
5. Sinus bradycardia with first-degree block - improving
- Patient heart rate was in 30s and patient was encephalopathic on morning of 06/22. started dopamine empirically despite hypoxia/hypoglycemia was likely reason for encephalopathy.
- Hypercalcemia possibly playing role
- Heart rate improved with improvement of hypercalcemia, pacemaker may not be warranted at this stage, continue monitoring
6. Hypercalcemia - Improving
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
Parathyroid adenoma
Vit D deficiency
- Difficult to explain, max of 13.7, suspecting tertiary hyperparathyroidism
- Patient on Cinacalcet 120mg MOWE before admission, dose increased to Cinacalcet 90 mg daily on 06/27
- Stop Calcitonin
- PTH significantly elevated - 1022
- CT c/a/p showing enlarged parathryoid gland
- Got pamidronate 30mg x1 inj/ f/u response
- Thyroid US showing parathyroid adenoma -will benefit with eventual parathyroidectomy if family preferred and clinically appropriate
- Vit d 25 OH - 20 , discussed with clinical specialist replacement would be beneficial
7. History of CVA with left hemiparesis, dysarthria and dysphagia
PEG TF dependent
- Continue tube feed as tolerated
8. ESRD on HD ( MWF )
Right IJ Hemodialysis Catheter
Anemia of Chronic Disease
- had full HD on 06/19/24
- Next HD on 07/06/24
- Continue Renvela for hyperphosphatemia
- PAPITO to be provided for anemia
- Got 1 unit PRBC for hemoglobin of 6.9. Patient developed pulmonary congestion after finishing three fourths of blood transfusion yesterday.
- No reported luminal blood loss. Occult stool test neg
- Heparin drip has stopped at this point
- S/p 2 units of PRBC this admission. Continue providing PRBC as needed for hemoglobin less than 7
9. Anemia
-likely renal failure related
-If needed give blood transfusion only with dialysis moving forward
10. History of CVA with left hemiparesis, dysarthria and dysphagia
-Patient is not n.p.o. at baseline and is on PEG tube feeding
Severe calcific atherosclerotic plaque in the coronary arteries on CT Chest
Right chronically impacted humeral neck fracture -imaging finding on CT chest, needs to be verified with previous records
Hyponatremia
Recent Flu
Benign Hypertension
Hyperlipidemia
Carotid artery disease s/p R CEA
BPH
Depression
DVT Prophylaxis: Heparin SUBQ
Code Status: DNR/DNI -drum stock clerk discussed with family on 06/25 -- patient also confirmed (on 07/01/24) to me that he is to continued on DNR/DNI status (he clearly stated on 07/01/24: no mechanical ventilation and no CPR)
Daughter Tawnya updated by Dr. Benedict Villarreal on 06/22 and 06/23 06/27
06/24/[address] Benedict Villarreal and patient's daughter at bedside. All questions answered regarding event leading up to cardiac arrest and further prognosis moving forward. After lengthy discussion family agreed for patient to
be switched to DNI once extubated. Dr. Soraya Villarreal clarified to patient family that patient have permanent risk of repeated aspiration/mucous plugging in light of history of stroke/altered physiology at this point. If patient continues to have
recurrent issues with pulmonary aspiration/hypoxia patient would be appropriate for hospice eventually.
Overall prognosis poor and family wants to discuss care plan with hospice (as information session) but is appropriate for hospice care at this stage.
Patient continues to remain high risk of aspiration as have significant secretions which patient not able to clear.
Anticipated Discharge: > 48 hours
Subjective/Interval History
-
Date of Service: July 04, 2024
Patient was seen and examined. He denied any symptoms or complaints.
Objective Data
-
Vital Signs:
Vital Signs
Temp Pulse Resp BP Pulse Ox
97.5 F 74 18 157/77 94
07/04/24 15:34 07/04/24 18:27 07/04/24 18:02 07/04/24 18:27 07/04/24 18:00
I&O
07/03/24 07/04/24 07/05/24
06:59 06:59 06:59
Intake Total 1000 / 1000 900 / 900
Output Total 0 / 0
Balance 1000 / 1000 900 / 900
[2024-07-04] MEDS: FOLVITE 2 MG TUBE (21:52)
[2024-07-04] MEDS: MELATONIN 5 MG TUBE (21:53)
[2024-07-05] VITALS (25 sets, daily range): BP systolic 147–169; BP diastolic 77–98
--- NOTE | 2024-07-05 01:38 | PTCARENOTE ---
Assumed care of pt from lucia RN. Pt aaox3 and GAMBELL. NSR on monitor with BBB and PVCs. 95% on 2L NC. TF infusing at goal @ 50 mL/hr with 25 mL/hr flush. Hygiene completed including completed bed change and CHG wipes. Pt now resting in bed with
call pérez in reach.
[2024-07-05 04:25] LABS: Hematocrit 27.5 % (39.0-52.0); Mean Corp Hgb Conc. 32.7 g/dL (33.0-37.0); Mean Corpuscular Hgb 29.6 pg (27.0-31.0); Mean Corpuscular Volume 90.5 fL (80.0-94.0); Mean Platelet Volume 8.4 fL (7.4-10.4); Platelet Count 308 10^3/uL (130-400); Red Blood Cell Count 3.04 10^6/uL (4.70-6.10); Red Cell Dist. Width 15.8 % (11.5-14.5); White Blood Cell Count 9.2 10^3/uL (4.8-10.8)
[2024-07-05 04:50] LABS: Blood Urea Nitrogen 46 mg/dl (9-20); Calcium 11.1 mg/dl (8.4-10.2); Carbon Dioxide 30 mmol/L (22-30); Chloride 99 mmol/L (98-107); Estimated Creatinine Clearance 19 ml/min; Glucose 100 mg/dl (70-99); Potassium 3.7 mmol/L (3.5-5.1); Sodium 137 mmol/L (135-145); eGFR 18.88
[2024-07-05] MEDS: VENTOLIN NEBULES 2.5 MG INH ×3 (07:26→19:28)
[2024-07-05] MEDS: SODIUM CHLORIDE 3% FOR INHALATION 1 VIAL INH ×3 (07:26→19:28)
--- NOTE | 2024-07-05 08:42 | PTCARENOTE ---
Patient received from closing specialist. Patient resting comfortably in bed. AAO, VSS. No events noted overnight. No complaints of pain. No IV fluids. Tubefeed @ 50mL/hr with 25mL/hr water flush. No testing scheduled at this time. Call pérez in
reach.
[2024-07-05] MEDS: HEPARIN 5000 UNITS SC ×2 (08:46→22:03)
[2024-07-05] MEDS: MIRALAX 17 GRAMS TUBE (08:47)
[2024-07-05] MEDS: SENSIPAR 90 MG TUBE (08:47)
[2024-07-05] MEDS: WELLBUTRIN REGULAR RELEASE 150 MG TUBE ×2 (08:47→22:03)
[2024-07-05] MEDS: LOW STRENGTH ASPIRIN 81 MG TUBE (08:47)
[2024-07-05] MEDS: PREVACID 15 MG TUBE (08:47)
--- NOTE | 2024-07-05 09:42 | W.PN.NEPH.PH ---
Today's Communication / Plan
-
increase sensipar
Assessment/Plan
-
Impression:
ESRD MWF
Hypoxia/left lung atelectasis versus pneumonia
Large left pleural effusion s/p thoracentesis 06/21
CHF
Anemia
Hypertension hx
Hyponatremia
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
Hyperphosphatemia
PEG
Non-ST elevation [place]
History of stroke with subsequent left hemiparesis dysarthria and dysphagia
Tunneled right HD IJ catheter
Chronic impacted right proximal humerus fracture
hypercalcemia
Plan:
Sensipar 120mg daily
follow BMP
HD tomorrow
may need calcitonin again
Await placement
-
-
Date of Service: July 05, 2024
CC / HPI / ROS
-
Chief Complaint:
ESRD
History of Present Illness:
hemodynamically stable
Calcium high 11.1
Tolerated dialysis saturday
Review of Systems:
No chest pain or shortness of breath
No fever
Labs
-
Labs:
WBC 9.2 10^3/uL (4.8-10.8) 07/05/24 04:09
RBC 3.04 10^6/uL (4.70-6.10) L 07/05/24 04:09
Hgb 9.0 g/dL (13.0-18.0) L 07/05/24 04:09
Hct 27.5 % (39.0-52.0) L 07/05/24 04:09
Plt Count 308 10^3/uL (130-400) 07/05/24 04:09
Sodium 137 mmol/L (135-145) 07/05/24 04:09
Potassium 3.7 mmol/L (3.5-5.1) 07/05/24 04:09
Chloride 99 mmol/L (98-107) 07/05/24 04:09
Carbon Dioxide 30 mmol/L (22-30) 07/05/24 04:09
BUN 46 mg/dl (9-20) H 07/05/24 04:09
Creatinine 3.4 mg/dL (0.7-1.3) H 07/05/24 04:09
eGFR 18.88 07/05/24 04:09
Glucose 100 mg/dl (70-99) H 07/05/24 04:09
Calcium 11.1 mg/dl (8.4-10.2) H 07/05/24 04:09
Phosphorus 2.5 mg/dl (2.5-4.5) 06/22/24 12:03
Nyh-S-Andqhbwybux Pept > 41096 pg/ml 06/20/24 18:13
Albumin 2.3 g/dl (3.5-5.0) L 06/25/24 04:13
Physical Exam
-
Vital Signs:
Vital Signs
Temp Pulse Resp BP Pulse Ox
99.1 F 68 18 150/93 2
07/05/24 09:18 07/05/24 07:28 07/05/24 07:28 07/05/24 01:00 07/05/24 07:28
Cardiovascular:: Regular rate and rhythm
Respiratory:: Bilateral: Coarse
Lung Excursion:: Normal
Abdomen:: Nontender and Soft
Bowel Sounds:: Normal
Extremity Edema:: None: Bilateral:
--- NOTE | 2024-07-05 16:37 | W.PN.HOSP.TC ---
Today's Communication/Plan
-
SNF placement pending
HD tomorrow
See plan
Assessment / Plan
Assessment / Plan
Physical Exam
General: Comfortable
HEENT: Normocephalic
Respiratory: Rhonchi (increased secretion)
Cardiac: Regular Rhythm and S1/S2; Negative Murmur or Rub
GI: Soft, Nontender and Peg Tube
Musculoskeletal: No Edema
Neuro: Awake, Alert and No Motor Deficits
Psych: Calm

CT chest
1. Complete endobronchial obstruction of the left mainstem bronchus containing layering secretions. SEVERE NEAR COMPLETE AIRSPACE CONSOLIDATION of the LEFT UPPER and LOWER LOBES (either atelectasis or pneumonia).
2. LARGE LEFT PLEURAL EFFUSION.
3. Moderate to large right pleural effusion.
4. Moderate to severe cardiomegaly.
5. Severe calcific atherosclerotic plaque in the coronary arteries.
6. Right IJ hemodialysis catheter in place.
7. Chronic impacted fracture of the right proximal humerus.
CT c/a/p
Moderate bilateral pleural effusions, right larger than left. Both improved.
Mild right lower lobe consolidation. Stable. Moderate left lower lobe consolidation. Improved. Both concerning for pneumonia.
Mild cardiomegaly. Improved.
Enhancing mass posterior to the left thyroid gland. Differential includes exophytic thyroid nodule, parathyroid mass and lymphadenopathy. Thyroid ultrasound recommended.
Bilateral adrenal hyperplasia. Stable
Mild bilateral renal atrophy.
Mild abdominopelvic ascites.
Moderate diffuse bladder wall thickening. This can be seen with cystitis or bladder outlet obstruction.
Mild prostate hypertrophy.
Findings suggestion moderate volume overload or third spacing.
T7 and T11 compression fractures. Stable. L1 area not imaged previously for comparison

1. Left mainstem bronchus obstruction from secretions
Aspiration risk with poor cough and mucous plug obstructing left mainstem bronchus
Bilateral pleural effusion - felt to be related to underlying congestive heart failure, and ESRD with volume overload
Compression atelectasis
Pseudomonal aspiration pneumonia
Mild Pulmonary Edema
- Patient with history of CVA/PEG tube and on tube feeding
- Patient was on cefepime, has been discontinued on pulmonology recommendation as there is no supporting evidence of ongoing pneumonia
- Patient underwent left-sided thoracentesis of 1.45 L of transudative fluid. Fluid analysis reports reviewed. Fluid culture has been negative for any growth
- Patient underwent right-sided thoracentesis of 1.1 L of transudative fluid.
- Patient underwent left-sided thoracentesis of 1.75 L on 06/29/24 --> suspected pseudo-exudate
- CPT added to treatment regimen to help pulmonary toileting
- Respiratory culture growing pansensitive Pseudomonas (suspected colonization rather than infection), Zosyn -- completed 7 days of antibiotics
- Chest x-ray continue to show residual left-sided effusion with some loculation
- Patient had episode of nausea/vomiting recently with concern of repeat aspiration (in setting of poor cough reflex and excessive secretion) and oxygen requirement increased --> but now down to 1 to 2 L NC
- Continue flutter valve
- While hospitalized, continue nebulized 3% saline 3 times daily as well as albuterol 3 times daily to help with airway clearance
- On discharge, can send patient on Albuterol nebulizer to aid with secretion clearance
- Cough is stronger now
2. Cardiac arrest - Asystole
Vent dependent respiratory failure - resolved
Acute hypoxic resp failure
- possible multifactorial with hypoxia from pulmonary congestion with bradycardia/hypercalcemia
- part of hypoxia that triggered cardiac arrest was also likely from volume overload when getting first PRBC.
- required 1 epi and 1 round CPR with ROSC achieved in 3min
- Intubated during the code
- Post intubation CXR reviewed persistent homogeneous retrocardiac left lower lobe opacity.
3. Elevated troponin
NSTEMI
-Troponin max of 10.7
-Heparin drip discontinued previously this hospitalization
-TTE showing EF 50-55%
-No plan for any cath at this point
-Medical management with Aspirin and Statin
-No beta dany due to recent severe bradycardia
4. Acute on chronic heart failure with recovered and diastolic ejection fraction
- proBNP>[id number]
- Echo for 06/22/24
- volume management by HD
- Patient makes some urine
- Continue hold Carvedilol due to recent severe bradycardia
5. Sinus bradycardia with first-degree block - improving
- Patient heart rate was in 30s and patient was encephalopathic on morning of 06/22. started dopamine empirically despite hypoxia/hypoglycemia was likely reason for encephalopathy.
- Hypercalcemia possibly playing role
- Heart rate improved with improvement of hypercalcemia, pacemaker may not be warranted at this stage, continue monitoring
6. Hypercalcemia - Improving
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
Parathyroid adenoma
Vit D deficiency
- Difficult to explain, max of 13.7, suspecting tertiary hyperparathyroidism
- Patient on Cinacalcet 120mg MOWE before admission, dose increased to Cinacalcet 90 mg daily on 06/27
- Recently stopped Calcitonin but patient may need it again
- PTH significantly elevated - 1022
- CT c/a/p showing enlarged parathryoid gland
- Got pamidronate 30mg x1 inj/ f/u response
- Thyroid US showing parathyroid adenoma -will benefit with eventual parathyroidectomy if family preferred and clinically appropriate
- Vit d 25 OH - 20 , discussed with booking police officer replacement would be beneficial
7. History of CVA with left hemiparesis, dysarthria and dysphagia
PEG TF dependent
- Continue tube feed as tolerated
8. ESRD on HD ( MWF )
Right IJ Hemodialysis Catheter
Anemia of Chronic Disease
- had full HD on 06/19/24
- Next HD on 07/06/24
- Continue Renvela for hyperphosphatemia
- PAPITO to be provided for anemia
- Got 1 unit PRBC for hemoglobin of 6.9. Patient developed pulmonary congestion after finishing three fourths of blood transfusion yesterday.
- No reported luminal blood loss. Occult stool test neg
- Heparin drip has stopped at this point
- S/p 2 units of PRBC this admission. Continue providing PRBC as needed for hemoglobin less than 7
9. Anemia
-likely renal failure related
-If needed give blood transfusion only with dialysis moving forward
10. History of CVA with left hemiparesis, dysarthria and dysphagia
-Patient is not n.p.o. at baseline and is on PEG tube feeding
Severe calcific atherosclerotic plaque in the coronary arteries on CT Chest
Right chronically impacted humeral neck fracture -imaging finding on CT chest, needs to be verified with previous records
Hyponatremia
Recent Flu
Benign Hypertension
Hyperlipidemia
Carotid artery disease s/p R CEA
BPH
Depression
DVT Prophylaxis: Heparin SUBQ
Code Status: DNR/DNI -juice mixer discussed with family on 06/25 -- patient also confirmed (on 07/01/24) to me that he is to continued on DNR/DNI status (he clearly stated on 07/01/24: no mechanical ventilation and no CPR)
Daughter Tawnya updated by Dr. Benedict Villarreal on 06/22 and 06/23 06/27
06/24/[address] Benedict Villarreal and patient's daughter at bedside. All questions answered regarding event leading up to cardiac arrest and further prognosis moving forward. After lengthy discussion family agreed for patient to
be switched to DNI once extubated. Dr. Soraya Villarreal clarified to patient family that patient have permanent risk of repeated aspiration/mucous plugging in light of history of stroke/altered physiology at this point. If patient continues to have
recurrent issues with pulmonary aspiration/hypoxia patient would be appropriate for hospice eventually.
Overall prognosis poor and family wants to discuss care plan with hospice (as information session) but is appropriate for hospice care at this stage.
Patient continues to remain high risk of aspiration as have significant secretions which patient not able to clear.
Anticipated Discharge: 24 - 48 hours
Subjective/Interval History
-
Date of Service: July 05, 2024
Patient was seen and examined. He denied any symptoms or complaints.
Objective Data
-
Labs:
Laboratory Results
07/05/24
04:09
Sodium 137
Potassium 3.7
Chloride 99
Carbon Dioxide 30
BUN 46 H
Creatinine 3.4 H
Glucose 100 H
Calcium 11.1 H
Vital Signs:
Vital Signs
Temp Pulse Resp BP Pulse Ox
97.3 F 70 28 150/85 94
07/05/24 11:30 07/05/24 14:59 07/05/24 14:59 07/05/24 15:00 07/05/24 13:00
I&O
07/04/24 07/05/24 07/06/24
06:59 06:59 06:59
Intake Total 900 / 900
Output Total 0 / 0
Balance 900 / 900
[2024-07-05] MEDS: COZAAR 25 MG TUBE (18:22)
[2024-07-05] MEDS: CRESTOR 20 MG TUBE (18:23)
[2024-07-05] MEDS: MELATONIN 5 MG TUBE (22:03)
[2024-07-05] MEDS: FOLVITE 2 MG TUBE (22:03)
[2024-07-06] VITALS (62 sets, daily range): BP systolic 131–174; BP diastolic 82–119; PULSE 80–81; O2SAT 94–95
--- NOTE | 2024-07-06 01:06 | PTCARENOTE ---
Assumed care of pt from lucia WALLACE. Pt aaox3 and [place]. NSR with BBB on monitor. 95% on 2L NC. TF infusing at 50 mL/hr with 25 mL/hr flush. Hygiene completed. Pt now resting in bed with call pérez in reach.
[2024-07-06] MEDS: SODIUM CHLORIDE 3% FOR INHALATION 1 VIAL INH ×3 (07:17→19:23)
[2024-07-06] MEDS: VENTOLIN NEBULES 2.5 MG INH ×3 (07:17→19:23)
--- NOTE | 2024-07-06 07:32 | W.PN.HOSP.TC ---
Today's Communication/Plan
-
.
Assessment / Plan
Assessment / Plan
L mainstem bronchus obstruction secondary to secretions
B/l pleural effusions likely secondary to underlying CHF and ESRD
- aspiration risk
- hx CVA/peg tube on tube feeding
- CPT
- resp cx: Pseudomonas, completed 7 days abx
- cont flutter valve
Cardiac arrest secondary to asystole
Ventilator dependent respiratory failure - resolved
- required 1 epi and 1 round CPR, ROSC in 3min
- intubated during code
- Post intubation CXR reviewed persistent homogeneous retrocardiac left lower lobe opacity.
NSTEMI
CHF
- trop max 10.7
- was on a heparin drip
- Echo: LVEF 50-55%
- ASA, statin
- hold BB due to recent severe bradycardia
Acute on chronic HFpEF
- proBNP elevated
- echo: LVEF 50-55%
- volume overload managed by HD
Sinus bradycardia w 1st degree AV block - improving
- 06/22: HR 30s, encephalopathic. Dopamine started
- hypoxia, hyperglycemia, hypercalcemia may play a role
Hypercalcemia secondary to parathyroid adenoma and hyperparathyroidism secondary to renal dysfunction
- vit D deficiency
- on cinacalcit
- CT CAP: enlarged parathyroid
- thyroid us: parathyroid adenoma
- pamidronate x1
- surgery consulted
Hx CVA w L hemiparesis, dysarthria, dysphagia
- cont tube feeding
ESRD on MWF HD
anemia of chronic disease
- HD today, due 07/08
- transfused 2 unit pRBCs
Severe calcific atherosclerotic plaque in the coronary arteries on CT Chest
Right chronically impacted humeral neck fracture -imaging finding on CT chest, needs to be verified with previous records
Hyponatremia
Recent Flu
Benign Hypertension
Hyperlipidemia
Carotid artery disease s/p R CEA
BPH
Depression
Diet: tube feeding
DVT Prophylaxis: Heparin SUBQ
Code Status: DNR/DNI
Anticipated Discharge: > 48 hours
Subjective/Interval History
-
Date of Service: July 06, 2024
HD today, still pending SNF placement. No acute overnight events.
Objective Data
-
Labs:
Laboratory Results
07/06/24
06:59
WBC Pending
Hgb Pending
Hct Pending
Plt Count Pending
Sodium Pending
Potassium Pending
Chloride Pending
Carbon Dioxide Pending
BUN Pending
Creatinine Pending
Glucose Pending
Calcium Pending
Vital Signs:
Vital Signs
Temp Pulse Resp BP Pulse Ox
97.1 F 75 16 166/82 2
07/06/24 06:37 07/06/24 07:18 07/06/24 07:18 07/06/24 07:15 07/06/24 07:18
I&O
07/05/24 07/06/24 07/07/24
06:59 06:59 06:59
Intake Total 960 / 960
Balance 960 / 960
Review of Systems
-
History Source: Patient
Constitutional: Reports No Symptoms
Respiratory: Reports No Symptoms
Cardiac: Reports No Symptoms
Abdomen/GI: Reports No Symptoms
Musculoskeletal: Reports No Symptoms
Skin: Reports No Symptoms
Neuro: Reports No Symptoms
Physical Exam
-
General: Well Developed, Well Nourished and No Apparent Distress
HEENT: Normocephalic and Atraumatic
Respiratory: Wheezes
Cardiac: Regular Rhythm and S1/S2
GI: Soft, Nontender, Nondistended and Normal Bowel Sounds
Musculoskeletal: No Clubbing, No Cyanosis and No Edema
Skin: Warm and Dry
Neuro: Awake and AO x 3
[2024-07-06 07:40] LABS: Hematocrit 27.1 % (39.0-52.0); Hemoglobin 8.8 g/dL (13.0-18.0); Mean Corp Hgb Conc. 32.5 g/dL (33.0-37.0); Mean Corpuscular Volume 92.5 fL (80.0-94.0); Mean Platelet Volume 8.8 fL (7.4-10.4); Platelet Count 348 10^3/uL (130-400); Red Blood Cell Count 2.93 10^6/uL (4.70-6.10); Red Cell Dist. Width 15.9 % (11.5-14.5); White Blood Cell Count 9.7 10^3/uL (4.8-10.8)
[2024-07-06] MEDS: RETACRIT 10000 UNITS IV (08:11)
--- NOTE | 2024-07-06 08:13 | W.PN.NEPH.HD ---
Assessment
-
Patient seen on dialysis
Systolic blood pressure of 107 at current Cyn[facility]
Hypercalcemia remains problematic from underlying primary hyperparathyroidism and needs attention for surgical resection of parathyroid gland
Progress Note - Hemodialysis
-
Date of Service: July 06, 2024
Duration: 30 minutes and 3 hours
Potassium Bath: 3
Calcium Bath: 2.5 (will be changed to 2.0 once supply arrives)
Opti-Dialyzer: 160
Ultrafiltration: Other (2kg)
Blood Flow: 400
Dialysate Flow: 600
Heparin: none
EPO: 10,000
[2024-07-06] MEDS: MIRALAX TUBE (08:19)
[2024-07-06] MEDS: SENSIPAR 120 MG TUBE (08:27)
[2024-07-06] MEDS: WELLBUTRIN REGULAR RELEASE 150 MG TUBE ×2 (08:28→20:35)
[2024-07-06] MEDS: LOW STRENGTH ASPIRIN 81 MG TUBE (08:28)
[2024-07-06] MEDS: PREVACID 15 MG TUBE (08:28)
[2024-07-06] MEDS: HEPARIN 5000 UNITS SC ×2 (08:28→20:35)
[2024-07-06 08:42] LABS: Blood Urea Nitrogen 64 mg/dl (9-20); Calcium 11.4 mg/dl (8.4-10.2); Carbon Dioxide 31 mmol/L (22-30); Chloride 95 mmol/L (98-107); Estimated Creatinine Clearance 15 ml/min; Glucose 85 mg/dl (70-99); Potassium 4.1 mmol/L (3.5-5.1); Sodium 135 mmol/L (135-145); eGFR 14.24
[2024-07-06] MEDS: HEPARIN 3600 UNITS INTRACATH (10:16)
--- NOTE | 2024-07-06 10:42 | CM ---
Patient from [facility] with Hx ESRD on HD, CVA w left hemiparesis, PEG tube feedings with Dx NSTEMI, cardiac arrest, HF.
Spoke with [facility] (ph [phone]); [facility] in [place] has an available bed & HD chair. She needs to speak with daughter about LTC application - she reached out to daughter & her voicemail was full. Tahira is unsure if
[facility] has STR & LTC bed and they do not have in-house dialysis.
Phone call to [facility]; left message requesting callback re; STR/LTC bed they said yes to in [place]. Need to discuss closest Outpt HD facility so can make referral.
Spoke with daughter GORAN Bowling; daughter says her father would prefer to go to [facility] over [facility] due to location. Provided her phone #s and asked her to speak with admission coordinators re; LTC application. Dtr stating she also wants
to take a tour but cannot do so today - CM had provided update patient is medically ready for d/c. Dtr says patient told her he may need 'neck surgery'.
Plan follow up with [facility].
Plan continued CM efforts for SNF with in-house or outpatient HD in the [place] area.
--- NOTE | 2024-07-06 11:18 | WOUNDNOTE ---
WO RN NOTE: New consult received for back wounds. Wounds are not new were noted by this promotion writer at past assessment. The pink areas appear to be newly healed skin. These areas have been covered with silicone foam for protection. Sacral wound appears
cell cleaner today. Continue use of Honey Gel (more honey gel ordered to bedside by this promotion writer). Patient remains on Centrella Max Air with turning scheduled. RODRIGO Lee given update. Plan is for SNF. Will follow as needed.
--- NOTE | 2024-07-06 11:28 | WOUNDNOTE ---
MID BACK NEWLY HEALED SKIN [id number]
--- NOTE | 2024-07-06 11:30 | WOUNDNOTE ---
Addendum entered by Marysol Anaya RN 07/06/24 11:32:
1955 [id number]
Original Note:
SACRAL WOUND
--- NOTE | 2024-07-06 11:44 | WOUNDNOTE ---
WO RN NOTE: New consult received for possible new back wounds. Wounds are not new were noted by this physician underwriter at past assessment. The pink areas on back appear to be newly healed skin. These areas have been covered with silicone foam for protection.
Sacral wound appears with sloughy appearing base today. Will recommend Santyl and continued off-loading with turning schedule and Z-foam cushion. Patient remains on Centrella Max Air and tube feeds. RODRIGO Lee given update. Plan is for SNF. Will
continue to follow during in-patient stay.
--- NOTE | 2024-07-06 14:06 | RESPNOTE ---
Respiratory: Chest PT done on Left lobe via percussor. Tolerated TX well. Productive but weak cough, with norris secretions.
--- NOTE | 2024-07-06 15:51 | PTCARENOTE ---
Patient AOx3. Patient has flat affect. Chronic L sided weakness due to history of CVA. 2L NC with SpO2 greater than 92%. Patient does have LUCAS. NSR with BBB, PVC's, first degree, and occasional bigeminy on monitor. Incontinent soft brown BM. Anuric
at baseline. HD completed during shift. Nepro running through PEG tube at goal of 50 ml/hr with a flush of 25 ml/hr of water. Strict NPO. Patient utilizes suction. Oral care completed throughout shift. Aspiration precautions maintained. Q2 turns.
Call pérez within reach, bed in lowest position, and bed of wheels locked.
--- NOTE | 2024-07-06 16:35 | W.PN.UPDATE ---
Update Note
Progress Note Update
I saw and evaluated the patient. I reviewed the resident�s note and agree with findings and plan as documented in the resident�s note.
1. Left mainstem bronchus obstruction from secretions
Aspiration risk with poor cough and mucous plug obstructing left mainstem bronchus
Bilateral pleural effusion - felt to be related to underlying congestive heart failure, and ESRD with volume overload
Compression atelectasis
Pseudomonal aspiration pneumonia
Mild Pulmonary Edema
- Patient with history of CVA/PEG tube and on tube feeding
- Patient was on cefepime, has been discontinued on pulmonology recommendation as there is no supporting evidence of ongoing pneumonia
- Patient underwent left-sided thoracentesis of 1.45 L of transudative fluid. Fluid analysis reports reviewed. Fluid culture has been negative for any growth
- Patient underwent right-sided thoracentesis of 1.1 L of transudative fluid.
- Patient underwent left-sided thoracentesis of 1.75 L on 06/29/24 --> suspected pseudo-exudate
- CPT added to treatment regimen to help pulmonary toileting
- Respiratory culture growing pansensitive Pseudomonas (suspected colonization rather than infection), Zosyn -- completed 7 days of antibiotics
- Chest x-ray continue to show residual left-sided effusion with some loculation
- Patient had episode of nausea/vomiting recently with concern of repeat aspiration (in setting of poor cough reflex and excessive secretion) and oxygen requirement increased --> but now down to 1 to 2 L NC
- While hospitalized, continue nebulized 3% saline 3 times daily as well as albuterol 3 times daily to help with airway clearance
2. Cardiac arrest - Asystole
Vent dependent respiratory failure - resolved
Acute hypoxic resp failure
- possible multifactorial with hypoxia from pulmonary congestion with bradycardia/hypercalcemia
- part of hypoxia that triggered cardiac arrest was also likely from volume overload when getting first PRBC.
- required 1 epi and 1 round CPR with ROSC achieved in 3min
- Intubated during the code
3. Elevated troponin
NSTEMI
-Troponin max of 10.7
-Heparin drip discontinued previously this hospitalization
-TTE showing EF 50-55%
-No plan for any cath at this point
-Medical management with Aspirin and Statin
-No beta dany due to recent severe bradycardia
4. Acute on chronic heart failure with recovered and diastolic ejection fraction
- proBNP>[id number]
- Echo for 06/22/24
- volume management by HD
- Patient makes some urine
- Continue hold Carvedilol due to recent severe bradycardia
5. Sinus bradycardia with first-degree block - improving
- Patient heart rate was in 30s and patient was encephalopathic on morning of 06/22. started dopamine empirically despite hypoxia/hypoglycemia was likely reason for encephalopathy.
- Hypercalcemia possibly playing role
- Heart rate improved with improvement of hypercalcemia, pacemaker may not be warranted at this stage, continue monitoring
6. Hypercalcemia - Improving
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
Parathyroid adenoma
Vit D deficiency
- PTH significantly elevated - 1022
- CT c/a/p showing enlarged parathyroid gland
- Thyroid US showing parathyroid adenoma -will benefit with eventual parathyroidectomy if family preferred and clinically appropriate
- Vit d 25 OH - 20 , discussed with loan expeditor replacement would be beneficial
- Currently on high dose of Cinacalcet 120 mg daily. Also got pamidronate/calcitonin injection this visit
- Hypercalcemia persist despite maximal medical therapy, discussed with nephro and Dr. Rutherford has been consulted for evaluation for possible parathyroidectomy.
7. History of CVA with left hemiparesis, dysarthria and dysphagia
PEG TF dependent
- Continue tube feed as tolerated
8. ESRD on HD ( MWF )
Right IJ Hemodialysis Catheter
Anemia of Chronic Disease
- had full HD on 06/19/24
- Next HD on 07/06/24
- Continue Renvela for hyperphosphatemia
- PAPITO to be provided for anemia
- Got 1 unit PRBC for hemoglobin of 6.9. Patient developed pulmonary congestion after finishing three fourths of blood transfusion yesterday.
- No reported luminal blood loss. Occult stool test neg
- Heparin drip has stopped at this point
- S/p 2 units of PRBC this admission. Continue providing PRBC as needed for hemoglobin less than 7
9. Anemia
-likely renal failure related
-If needed give blood transfusion only with dialysis moving forward
10. History of CVA with left hemiparesis, dysarthria and dysphagia
Severe calcific atherosclerotic plaque in the coronary arteries on CT Chest
Right chronically impacted humeral neck fracture -imaging finding on CT chest, needs to be verified with previous records
Hyponatremia
Recent Flu
Benign Hypertension
Hyperlipidemia
Carotid artery disease s/p R CEA
BPH
Depression
DVT Prophylaxis: Heparin SUBQ
Code Status: DNR/DNI -sales service representative discussed with family on 06/25 -- patient also confirmed (on 07/01/24) to me that he is to continued on DNR/DNI status (he clearly stated on 07/01/24: no mechanical ventilation and no CPR)
[2024-07-06] MEDS: CRESTOR 20 MG TUBE (17:08)
[2024-07-06] MEDS: MELATONIN 5 MG TUBE (20:35)
[2024-07-06] MEDS: FOLVITE 2 MG TUBE (20:35)
--- NOTE | 2024-07-06 23:15 | PTCARENOTE ---
Caring for patient overnight. aaox3, flat affect, forgetful. Denies pain. Q2T. Tube feeds running at goal. Remains on 3LNC. orthopneic, & SOB at times. Productive sputum, suction when pt is able to cough it up. Incontinent & continues to have loose
stools. NO other issues at this time. Will monitor.
[2024-07-07] VITALS (14 sets, daily range): BP systolic 147–168; BP diastolic 91–118; BMI 19.8
[2024-07-07 05:59] LABS: Hematocrit 28.6 % (39.0-52.0); Hemoglobin 9.3 g/dL (13.0-18.0); Mean Corp Hgb Conc. 32.5 g/dL (33.0-37.0); Mean Corpuscular Hgb 29.8 pg (27.0-31.0); Mean Corpuscular Volume 91.7 fL (80.0-94.0); Mean Platelet Volume 8.7 fL (7.4-10.4); Platelet Count 366 10^3/uL (130-400); Red Blood Cell Count 3.12 10^6/uL (4.70-6.10); Red Cell Dist. Width 16.2 % (11.5-14.5)
[2024-07-07 06:20] LABS: Blood Urea Nitrogen 39 mg/dl (9-20); Calcium 10.5 mg/dl (8.4-10.2); Carbon Dioxide 31 mmol/L (22-30); Chloride 104 mmol/L (98-107); Estimated Creatinine Clearance 23 ml/min; Glucose 83 mg/dl (70-99); Potassium 4.1 mmol/L (3.5-5.1); Sodium 139 mmol/L (135-145); eGFR 23.83
--- NOTE | 2024-07-07 08:04 | W.PN.HOSP.TC ---
Today's Communication/Plan
-
thoracentesis
Assessment / Plan
Assessment / Plan
L mainstem bronchus obstruction secondary to secretions
B/l pleural effusions likely secondary to underlying CHF and ESRD
- aspiration risk
- hx CVA/peg tube on tube feeding
- CPT
- resp cx: Pseudomonas, completed 7 days abx
- cont flutter valve
- thoracentesis
Cardiac arrest secondary to asystole
Ventilator dependent respiratory failure - resolved
- required 1 epi and 1 round CPR, ROSC in 3min
- intubated during code
- Post intubation CXR reviewed persistent homogeneous retrocardiac left lower lobe opacity.
NSTEMI
CHF
- trop max 10.7
- was on a heparin drip
- Echo: LVEF 50-55%
- ASA, statin
- hold BB due to recent severe bradycardia
Acute on chronic HFpEF
- proBNP elevated
- echo: LVEF 50-55%
- volume overload managed by HD
Sinus bradycardia w 1st degree AV block - improving
- 06/22: HR 30s, encephalopathic. Dopamine started
- hypoxia, hyperglycemia, hypercalcemia may play a role
Hypercalcemia secondary to parathyroid adenoma and hyperparathyroidism secondary to renal dysfunction
- vit D deficiency
- on cinacalcit
- CT CAP: enlarged parathyroid
- thyroid us: parathyroid adenoma
- pamidronate x1
- surgery consulted
Hx CVA w L hemiparesis, dysarthria, dysphagia
- cont tube feeding
ESRD on MWF HD
anemia of chronic disease
- HD due 07/08
- transfused 2 unit pRBCs
Severe calcific atherosclerotic plaque in the coronary arteries on CT Chest
Right chronically impacted humeral neck fracture -imaging finding on CT chest, needs to be verified with previous records
Hyponatremia
Recent Flu
Benign Hypertension
Hyperlipidemia
Carotid artery disease s/p R CEA
BPH
Depression
Diet: tube feeding
DVT Prophylaxis: Heparin SUBQ
Code Status: DNR/DNI
Anticipated Discharge: > 48 hours
Subjective/Interval History
-
Date of Service: July 07, 2024
Still congested w increased WOB. Pt feels tired.
Objective Data
-
Labs:
Laboratory Results
07/07/24
05:38
WBC 8.0
Hgb 9.3 L
Hct 28.6 L
Plt Count 366
Sodium 139
Potassium 4.1
Chloride 104
Carbon Dioxide 31 H
BUN 39 H
Creatinine 2.8 H
Glucose 83
Calcium 10.5 H
Vital Signs:
Vital Signs
Temp Pulse Resp BP Pulse Ox
97.5 F 81 32 151/102 92
07/07/24 03:58 07/07/24 06:00 07/07/24 06:00 07/07/24 04:00 07/07/24 06:00
I&O
07/06/24 07/07/24 07/08/24
06:59 06:59 06:59
Intake Total 960 / 960 900 / 900
Balance 960 / 960 900 / 900
Review of Systems
-
History Source: Patient
Constitutional: Reports Sleep Disturbance
Respiratory: Reports Trouble Breathing
Cardiac: Reports Chest Pain
Abdomen/GI: Reports No Symptoms
Musculoskeletal: Reports No Symptoms
Skin: Reports No Symptoms
Neuro: Reports Weakness
Physical Exam
-
General: Well Developed, Well Nourished and Respiratory Distress
HEENT: Normocephalic, Atraumatic and Oxygen
Respiratory: Wheezes and Accessory Resp Muscle Use
Cardiac: Regular Rhythm and S1/S2
GI: Soft, Nontender, Nondistended and Normal Bowel Sounds
Musculoskeletal: No Clubbing, No Cyanosis and No Edema
Skin: Warm
Neuro: Awake and Alert
[2024-07-07] MEDS: WELLBUTRIN REGULAR RELEASE 150 MG TUBE ×2 (08:48→20:14)
[2024-07-07] MEDS: SENSIPAR 120 MG TUBE (08:48)
[2024-07-07] MEDS: MIRALAX TUBE (08:48)
[2024-07-07] MEDS: LOW STRENGTH ASPIRIN 81 MG TUBE (08:48)
[2024-07-07] MEDS: PREVACID 15 MG TUBE (08:48)
[2024-07-07] MEDS: HEPARIN 5000 UNITS SC ×2 (08:49→20:14)
--- NOTE | 2024-07-07 08:51 | W.PN.NEPH.PH ---
Today's Communication / Plan
-
Dialysis tomorrow, orders provide
Maintain 2 calcium bath daily Sensipar regards to hypercalcemia in setting of primary hyperparathyroidism
Assessment/Plan
-
Impression:
ESRD MWF
Hypoxia/left lung atelectasis versus pneumonia
Large left pleural effusion s/p thoracentesis 06/21
CHF
Anemia
Hypertension hx
Hyponatremia
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
Hyperphosphatemia
PEG
Non-ST elevation [place]
History of stroke with subsequent left hemiparesis dysarthria and dysphagia
Tunneled right HD IJ catheter
Chronic impacted right proximal humerus fracture
hypercalcemia
Plan:
Sensipar 120mg daily and calcium at 10.5, also using 2 Ca bath
HD tomorrow,orders provided
Await placement
-
-
Date of Service: July 07, 2024
CC / HPI / ROS
-
Chief Complaint:
ESRD
History of Present Illness:
hemodynamically stable
Calcium high 10.5
Hemodialysis on Saturday schedule
Review of Systems:
SOB this am
No fever
Labs
-
Labs:
WBC 8.0 10^3/uL (4.8-10.8) 07/07/24 05:38
RBC 3.12 10^6/uL (4.70-6.10) L 07/07/24 05:38
Hgb 9.3 g/dL (13.0-18.0) L 07/07/24 05:38
Hct 28.6 % (39.0-52.0) L 07/07/24 05:38
Plt Count 366 10^3/uL (130-400) 07/07/24 05:38
Sodium 139 mmol/L (135-145) 07/07/24 05:38
Potassium 4.1 mmol/L (3.5-5.1) 07/07/24 05:38
Chloride 104 mmol/L (98-107) 07/07/24 05:38
Carbon Dioxide 31 mmol/L (22-30) H 07/07/24 05:38
BUN 39 mg/dl (9-20) H 07/07/24 05:38
Creatinine 2.8 mg/dL (0.7-1.3) H 07/07/24 05:38
eGFR 23.83 07/07/24 05:38
Glucose 83 mg/dl (70-99) 07/07/24 05:38
Calcium 10.5 mg/dl (8.4-10.2) H 07/07/24 05:38
Phosphorus 2.5 mg/dl (2.5-4.5) 06/22/24 12:03
Cul-M-Xhkgjoehytd Pept > 67028 pg/ml 06/20/24 18:13
Albumin 2.3 g/dl (3.5-5.0) L 06/25/24 04:13
Physical Exam
-
Vital Signs:
Vital Signs
Temp Pulse Resp BP Pulse Ox
97.1 F 81 32 151/102 92
07/07/24 07:05 07/07/24 06:00 07/07/24 06:00 07/07/24 04:00 07/07/24 06:00
Cardiovascular:: Regular rate and rhythm
Respiratory:: Bilateral: Coarse
Lung Excursion:: Normal
Abdomen:: Nontender and Soft
Bowel Sounds:: Normal
Extremity Edema:: None: Bilateral:
--- NOTE | 2024-07-07 09:37 | W.PN.PUL.V3 ---
Today's Communication / Plan
-
Thoracentesis
ASEPT catheter evaluation
Mucus clearing devices
Aspiration precautions
Assessment
-
Patient is a 60-year-old gentleman with known history of carotid artery disease status post right CEA in the past, end-stage renal disease on hemodialysis, hypertension, hyperlipidemia, congestive heart failure with reduced ejection fraction of 40
to 45% as well as history of stroke in the past, who was [facility] from the [facility] facility for worsening shortness of breath. Patient reportedly has been feeling short of breath over the last couple of weeks which has been progressively
getting worse. Reported diagnosis of low enzymes patient has been on Tamiflu. In view of worsening respiratory status he was transferred to the emergency room for further workup. Imaging in the emergency room showing showed near complete collapse
of the left lung with large pleural effusion as well as moderate pleural effusion on the right side. Patient also was noted to have significantly elevated troponin along with sinus bradycardia. Patient was started on broad-spectrum antibiotics,
aspirin as well as heparin drip for suspected NSTEMI and was admitted to hospitalist service.
In view of large effusion, interventional radiology and pulmonary service were requested for further input. Patient had thoracentesis performed with gradual improvement. Patient subsequently had a cardiopulmonary arrest and required CPR on 06/23
and CODE STATUS was reversed from DNR to full code. Patient was intubated for 2 days and it was felt to be related to mucous plug obstructing left main bronchus. Patient was successfully extubated on 06/25/24.
Bilateral pleural effusions left greater than right status post thoracentesis x 3
Status post intubation and mechanical ventilation-06/23/2024 through 06/25/2024
Cardiac arrest status post asystole-epi, CPR ROSC in 3 minutes
Sinus bradycardia
Aspiration risk
Lung atelectasis due to mucous plugging and pleural effusion
CHF with preserved EF
End-stage renal disease on hemodialysis
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
Plan
Asked by hospitalist to reevaluate the patient as he has had increased respiratory distress and worsening chest x-ray
Supplemental oxygen as needed
Status post intubation/ and extubated 06/25/2024
Aspiration precautions
Mucus clearing devices-he has tried vest therapy in the past without much success according to patient
Mucolytic's
Nebulizers-3% saline as well as albuterol
Bronchoscopy would be considered if cannot mobilize mucous plug after thoracentesis
Chest ultrasound-if enough fluid and then repeat thoracentesis-recommend asept catheter with repeat thoracentesis requirements-interventional radiology contacted by Dr. Villarreal
Follow chest x-ray
Cultures reviewed
Sputum was zbvizsdf-Kryzytlesja-vxmqhnshc 7 days of antibiotics-suspected colonization rather than active pneumonia
Nephrology following
Hemodialysis Xjjdlf-Veqrfhomd-Wkdfyn
Parathyroidectomy will likely be needed for persistent hypercalcemia
DVT prophylaxis
Nutrition-on tube feeds
Bedside range of motion/physical therapy
Family meeting
Dr. Garcia met with patient's daughter as well as ex-. Goals of care discussions took place in the presence of palliative care nurse. Patient's family requesting medical team to discuss again with the patient regarding his CODE STATUS and
wishes in future as he had been DNR/DNI in the past but was temporarily intubated in the setting of mucous plug.
Data:
CXR 05/2024: 1. Near complete opacification of the left hemithorax which is likely secondary to a large left pleural effusion and airspace consolidation (compressive atelectasis or pneumonia).
2. Moderate ground-glass opacity in the infrahilar right lower lung which could be subsegmental atelectasis or pneumonia.
3. Right IJ hemodialysis catheter in place.
4. Chronic impacted fracture of the right humeral neck.
CT Chest 05/2024: 1. Complete endobronchial obstruction of the left mainstem bronchus containing layering secretions. SEVERE NEAR COMPLETE AIRSPACE CONSOLIDATION of the LEFT UPPER and LOWER LOBES (either atelectasis or pneumonia).
2. LARGE LEFT PLEURAL EFFUSION.
3. Moderate to large right pleural effusion.
4. Moderate to severe cardiomegaly.
5. Severe calcific atherosclerotic plaque in the coronary arteries.
6. Right IJ hemodialysis catheter in place.
7. Chronic impacted fracture of the right proximal humerus.
Subjective Data
-
Date of Service:
Date of Service: July 07, 2024
Chief Complaint: Pulmonary Follow Up (Hypoxemic respiratory failure-bilateral pleural effusion) and Dyspnea Follow Up
Subjective:
Increase shortness of breath, chest x-ray worsening, difficulties mobilizing secretions, no chest pain or abdominal pain, complains of significant insomnia
Review of Systems
General: Other (Per HPI)
Objective Data
Data Reviewed
Vital Signs / I&O:
Vital Signs
Temp Pulse Resp BP Pulse Ox
97.1 F 81 32 151/102 92
07/07/24 07:05 07/07/24 06:00 07/07/24 06:00 07/07/24 04:00 07/07/24 06:00
Intake and Output
07/06/24 07/07/24 07/08/24
06:59 06:59 06:59
Intake Total 960 / 960 900 / 900
Balance 960 / 960 900 / 900
SaO2: 92
Nasal Cannula flow liters per minute: 3
Physical Exam
General: Respiratory Distress (Mild), Comfortable and T Max
HEENT: Normocephalic, Anicteric and Moist Mucous Membranes
Cardiovascular: Regular Rhythm and Peripheral Edema (Trace lower extremity edema bilaterally)
Respiratory: Rhonchi (Bilateral expiratory), Accessory Resp Muscle Use (n), Stridor (n) and Other (Diminished breath sounds on the left)
GI: Soft, Non Distended, Non Tender and Normal Bowel Sounds
Neurology: Awake, Alert, Tremors (negative) and Lethargic (Easily arousable to voice and following commands)
Skin: Warm, Good Color and Cyanosis (n)
Labs/Micro/Reports
Lab Data
07/07/24 05:38
07/07/24 05:38
Microbiology
06/29/24 08:24 Pleural Fluid Fungal Culture - Preliminary
Culture in progress.
Positive cultures are reported as soon as detected.
Final report to follow in four to five weeks.
--- NOTE | 2024-07-07 11:26 | CON.SURG ---
Surgical Consultation
-
Date of consultation: 07/07/2024
Reason for consulation: Hyperparathyroidism
Mr. Josh Barnes (1955) is a 68-year-old man who was admitted on 06/20/24 with dyspnea due to bilateral effusions with near complete collapse of the left lung. During the workup, he was found to have hyperparathyroidism. His intact PTH and
concurrent calcium levels from 06/22/24 were 1022 pg/ml and 13.1 mg/dL, respectively. His GFR was 24.89. On 06/25/24, he had a neck ultrasound, demonstrating findings suggestive of a large left parathyroid adenoma. I reviewed the US films and the
official readings in my office.
His past medical history is significant for GERD, ESRD on hemodialysis, HTN, CVA, and CHF with an EF of 40%. He is allergic to no medications.
His head and neck examination revealed no lymphadenopathy or masses.
A/P: Hyperparathyroidism
His rough hospital course with worsening pulmonary status is noted. The medical team is currently discussing the goals of his care and the code status with the patient and family. He is medically unstable at this time to consider surgical
intervention. Once the patient is medically stable, we should consider parathyroidectomy. Moreover, given the positive ultrasound, he is a suitable candidate for a minimally invasive parathyroidectomy. I will be available, if his medical status
changes.
[2024-07-07] MEDS: SANTYL OINTMENT 1 APPLIC TOPICAL (11:43)
--- NOTE | 2024-07-07 14:21 | CM ---
Addendum entered by Elizabeth Barrera RN 07/07/24 15:08:
Spoke with Janay Hoffmann, [facility] (ph [phone]); [facility] in [place] cannot accept due to his insurance, his HD and pleural catheter needs.
Spoke with Tawnya, daughter; provided update that the 2 SNFs can no longer accept due to pleural catheter needs. Daughter is familiar with [facility] (her father had referral there when he was at [facility]) and she is okay with the
referral. She reiterated that she intends to switch him to straight Medicare after discharge.
Message to Dr Villarreal: Daughter cannot say she agrees with placement of pleural catheter. She wants to talk with you about risks of pleural catheter vs thoracentesis and also has questions when he will need a parathyroidectomy ( on this admission or
later).
Plan follow up re; daughter's agreement with pleural catheter.
Plan follow up with [facility].
Original Note:
Patient from [facility] with Hx ESRD on HD, CVA w left hemiparesis, PEG tube feedings with Dx L mainstem bronchus obstruction secondary to secretions. O2 3L.
Spoke with Dr Villarreal; patient will need Asept Catheter at discharge.
Message from John Decker [facility] IR; request to confirm discharge plans before pleural catheter can be placed. Also need to know who will be managing and ordering frequency.
Phone call to [facility] (ph [phone]); they only do short term rehab and they are not contracted with his insurance.
Spoke with Janay Cook; she checked with [facility] and they confirmed they can accept patients with pleural catheters. Referral placed.
Phone call to Adm Hakeems Director, [facility] [place] left message inquiring if they can accept for STR/LTC with HD and pleural catheter.
Plan follow up SNF & Subacute referrals.
[2024-07-07] MEDS: XANAX 0.25 MG TUBE (15:54)
--- NOTE | 2024-07-07 16:11 | PTCARENOTE ---
Assumed care of patient at beginning of this shift from previous RN. Tolerating peg tube feedings. Patient with weak, moist productive cough for which he self-suctions for white sputum. BP running high today; Dr Villarreal made aware via TT and ordered
prn hydralazine with parameters. Currently OOB in chair using lift device. Patient c/o anxiety; Dr Villarreal ordered xanax prn which was given. See worklist for full assessment and vital signs.
[2024-07-07] MEDS: APRESOLINE 10 MG IV (17:34)
[2024-07-07] MEDS: CRESTOR 20 MG TUBE (17:34)
[2024-07-07] MEDS: COZAAR 25 MG TUBE (18:09)
[2024-07-07] MEDS: FOLVITE 2 MG TUBE (20:14)
[2024-07-07] MEDS: MELATONIN 5 MG TUBE (20:14)
[2024-07-08] VITALS (67 sets, daily range): BP systolic 129–166; BP diastolic 80–99; BMI 19.6
[2024-07-08] MEDS: XANAX 0.25 MG TUBE ×2 (03:01→20:08)
[2024-07-08 03:54] LABS: Hematocrit 27.1 % (39.0-52.0); Hemoglobin 8.9 g/dL (13.0-18.0); Mean Corp Hgb Conc. 32.8 g/dL (33.0-37.0); Mean Corpuscular Volume 91.2 fL (80.0-94.0); Mean Platelet Volume 8.5 fL (7.4-10.4); Platelet Count 342 10^3/uL (130-400); Red Blood Cell Count 2.97 10^6/uL (4.70-6.10); White Blood Cell Count 7.4 10^3/uL (4.8-10.8)
[2024-07-08 04:22] LABS: Blood Urea Nitrogen 54 mg/dl (9-20); Carbon Dioxide 30 mmol/L (22-30); Chloride 102 mmol/L (98-107); Estimated Creatinine Clearance 18 ml/min; Glucose 100 mg/dl (70-99); Potassium 4.3 mmol/L (3.5-5.1); Sodium 137 mmol/L (135-145); eGFR 17.63
--- NOTE | 2024-07-08 05:58 | PTCARENOTE ---
Caring for pt overnight. NSR BBB PVC. Q2T. On 6LNC at start of shift. Pt sounding very junky at start of shift, audible rhonchi, encouraged coughing and suctioning RT at bedside to do interventions. Slightly improved but still coarse, rhonchi
throughout lungs. Tube feeds running at goal, HOB >30degrees. Denies pain. xanax given for anxiety. VSS, monitoring high BP & treating with prn hydralazine Will continue to monitor.
--- NOTE | 2024-07-08 07:33 | PTCARENOTE ---
Assumed care of patient at beginning of this shift from previous RN; cannot verify accuracy of vital signs prior to 0700. Patient with frequent weak moist cough but unable to bring up much sputum. Lungs are very coarse with rhonchi. Patient states
he is unable to sleep despite xanax. Resp treatments cancelled yesterday. Dr Villarreal and Dr Faria notified via TT. Dr Villarreal stated that [facility] is aware for thorocentesis vs pleurex and unless anything changes emergently nothing else to do. They will see
patient first when rounding. Patient updated. Currently being set up for HD.
--- NOTE | 2024-07-08 07:43 | W.PN.HOSP.TC ---
Today's Communication/Plan
-
.
Assessment / Plan
Assessment / Plan
L mainstem bronchus obstruction secondary to secretions
B/l pleural effusions likely secondary to underlying CHF and ESRD
- aspiration risk
- hx CVA/peg tube on tube feeding
- CPT
- resp cx: Pseudomonas, completed 7 days abx
- cont flutter valve
- L thoracentesis #1: 1450 cc straw-colored pleural fluid evacuated
- R thoracentesis #1: 1100 cc of clear yellow pleural fluid.
- L thoracentesis #2: 1750 cc of serosanguineous pleural fluid.
- L thoracentesis #3: pending
Cardiac arrest secondary to asystole
Ventilator dependent respiratory failure - resolved
- required 1 epi and 1 round CPR, ROSC in 3min
- intubated during code
- Post intubation CXR reviewed persistent homogeneous retrocardiac left lower lobe opacity.
NSTEMI
CHF
- trop max 10.7
- was on a heparin drip
- Echo: LVEF 50-55%
- ASA, statin
- hold BB due to recent severe bradycardia
Acute on chronic HFpEF
- proBNP elevated
- echo: LVEF 50-55%
- volume overload managed by HD
Sinus bradycardia w 1st degree AV block - improving
- 06/22: HR 30s, encephalopathic. Dopamine started
- hypoxia, hyperglycemia, hypercalcemia may play a role
Hypercalcemia secondary to parathyroid adenoma and hyperparathyroidism secondary to renal dysfunction
- vit D deficiency
- on cinacalcit
- CT CAP: enlarged parathyroid
- thyroid us: parathyroid adenoma
- pamidronate x1
- surgery consulted - agreeable to perform when medically stable
Hx CVA w L hemiparesis, dysarthria, dysphagia
- cont tube feeding
ESRD on MWF HD
anemia of chronic disease
- HD due 07/08
- transfused 2 unit pRBCs
Severe calcific atherosclerotic plaque in the coronary arteries on CT Chest
Right chronically impacted humeral neck fracture -imaging finding on CT chest, needs to be verified with previous records
Hyponatremia
Recent Flu
Benign Hypertension
Hyperlipidemia
Carotid artery disease s/p R CEA
BPH
Depression
Diet: tube feeding
DVT Prophylaxis: Heparin SUBQ
Code Status: DNR/DNI
Anticipated Discharge: > 48 hours
Subjective/Interval History
-
Date of Service: July 08, 2024
Pt still congested with increased WOB. Underwent HD today.
Objective Data
-
Labs:
Laboratory Results
07/08/24
03:36
WBC 7.4
Hgb 8.9 L
Hct 27.1 L
Plt Count 342
Sodium 137
Potassium 4.3
Chloride 102
Carbon Dioxide 30
BUN 54 H
Creatinine 3.6 H
Glucose 100 H
Calcium 11.0 H
Vital Signs:
Vital Signs
Temp Pulse Resp BP Pulse Ox
97 F 71 28 159/86 95
07/08/24 04:07 07/08/24 06:00 07/08/24 06:00 07/08/24 06:00 07/08/24 06:00
I&O
07/07/24 07/08/24 07/09/24
06:59 06:59 06:59
Intake Total 900 / 900
Balance 900 / 900
Review of Systems
-
History Source: Patient
Constitutional: Reports Sleep Disturbance
Respiratory: Reports Trouble Breathing
Cardiac: Reports No Symptoms
Abdomen/GI: Reports No Symptoms
Musculoskeletal: Reports No Symptoms
Skin: Reports No Symptoms
Neuro: Reports No Symptoms
Physical Exam
-
General: Well Developed, Well Nourished and Respiratory Distress
HEENT: Normocephalic and Atraumatic
Respiratory: Wheezes and Accessory Resp Muscle Use
Cardiac: Regular Rhythm and S1/S2
GI: Soft, Nontender, Nondistended and Normal Bowel Sounds
Musculoskeletal: No Clubbing, No Cyanosis and No Edema
Skin: Warm and Dry
Neuro: Awake and Alert
[2024-07-08] MEDS: PREVACID 15 MG TUBE (07:48)
[2024-07-08] MEDS: LOW STRENGTH ASPIRIN 81 MG TUBE (07:48)
[2024-07-08] MEDS: WELLBUTRIN REGULAR RELEASE 150 MG TUBE ×2 (07:48→19:54)
[2024-07-08] MEDS: SENSIPAR 120 MG TUBE (07:48)
[2024-07-08] MEDS: MIRALAX TUBE (07:49)
[2024-07-08] MEDS: HEPARIN 5000 UNITS SC ×2 (07:49→19:54)
[2024-07-08] MEDS: RETACRIT 10000 UNITS IV (08:54)
--- NOTE | 2024-07-08 09:21 | W.PN.PUL.V3 ---
Today's Communication / Plan
-
Pleural catheter if possible-significant shortness of breath and if Pleurx catheter cannot be placed today then recommend therapeutic thoracentesis
Hemodialysis with goal -3 L
Aspiration precautions
Supplemental oxygen
Assessment
-
Patient is a 60-year-old gentleman with known history of carotid artery disease status post right CEA in the past, end-stage renal disease on hemodialysis, hypertension, hyperlipidemia, congestive heart failure with reduced ejection fraction of 40
to 45% as well as history of stroke in the past, who was brought from the long-term facility for worsening shortness of breath. Patient reportedly has been feeling short of breath over the last couple of weeks which has been progressively
getting worse. Reported diagnosis of low enzymes patient has been on Tamiflu. In view of worsening respiratory status he was transferred to the emergency room for further workup. Imaging in the emergency room showing showed near complete collapse
of the left lung with large pleural effusion as well as moderate pleural effusion on the right side. Patient also was noted to have significantly elevated troponin along with sinus bradycardia. Patient was started on broad-spectrum antibiotics,
aspirin as well as heparin drip for suspected NSTEMI and was admitted to hospitalist service.
In view of large effusion, interventional radiology and pulmonary service were requested for further input. Patient had thoracentesis performed with gradual improvement. Patient subsequently had a cardiopulmonary arrest and required CPR on 06/23
and CODE STATUS was reversed from DNR to full code. Patient was intubated for 2 days and it was felt to be related to mucous plug obstructing left main bronchus. Patient was successfully extubated on 06/25/24.
Bilateral pleural effusions left greater than right status post thoracentesis x 3
Status post intubation and mechanical ventilation-06/23/2024 through 06/25/2024
Cardiac arrest status post asystole-epi, CPR ROSC in 3 minutes
Sinus bradycardia
Aspiration risk
Lung atelectasis due to mucous plugging and pleural effusion
CHF with preserved EF
End-stage renal disease on hemodialysis
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
Plan
Respiratory status remains quite tenuous-difficulties mobilizing secretions, significant pleural fluid
Supplemental oxygen as needed-currently on 6 L - 94% saturation
Status post intubation/ and extubated 06/25/2024
Aspiration precautions
Mucus clearing devices-he has tried vest therapy in the past without much success according to patient
Mucolytic's
Nebulizers-3% saline as well as albuterol
Bronchoscopy would be considered if cannot mobilize mucous plug after thoracentesis
Interventional radiology-thoracentesis for preferably ASEPT catheter on the left side if placement allows
Small to moderate pleural effusion on the right side as well
Follow chest x-ray
Cultures reviewed
Sputum was sxrccdxk-Jwysxosjlwe-onuekmtyy 7 days of antibiotics-suspected colonization rather than active pneumonia
Nephrology following
Hemodialysis Bgeogu-Mjihsmbnx-Rlmizn-goal -3.5 L
Parathyroidectomy will likely be needed for persistent hypercalcemia
DVT prophylaxis
Nutrition-on tube feeds
Bedside range of motion/physical therapy
Family meeting
Dr. Garcia met with patient's daughter as well as ex-. Goals of care discussions took place in the presence of palliative care nurse. Patient's family requesting medical team to discuss again with the patient regarding his CODE STATUS and
wishes in future as he had been DNR/DNI in the past but was temporarily intubated in the setting of mucous plug.
Data:
CXR 05/2024: 1. Near complete opacification of the left hemithorax which is likely secondary to a large left pleural effusion and airspace consolidation (compressive atelectasis or pneumonia).
2. Moderate ground-glass opacity in the infrahilar right lower lung which could be subsegmental atelectasis or pneumonia.
3. Right IJ hemodialysis catheter in place.
4. Chronic impacted fracture of the right humeral neck.
CT Chest 05/2024: 1. Complete endobronchial obstruction of the left mainstem bronchus containing layering secretions. SEVERE NEAR COMPLETE AIRSPACE CONSOLIDATION of the LEFT UPPER and LOWER LOBES (either atelectasis or pneumonia).
2. LARGE LEFT PLEURAL EFFUSION.
3. Moderate to large right pleural effusion.
4. Moderate to severe cardiomegaly.
5. Severe calcific atherosclerotic plaque in the coronary arteries.
6. Right IJ hemodialysis catheter in place.
7. Chronic impacted fracture of the right proximal humerus.
Subjective Data
-
Date of Service:
Date of Service: July 08, 2024
Chief Complaint: Pulmonary Follow Up (Hypoxemic respiratory failure-bilateral pleural effusion) and Dyspnea Follow Up
Subjective:
Still with significant difficulties breathing, has not had a thoracentesis yet, chest congestion, difficulties mobilizing secretions, no chest pain or abdominal pain, significant insomnia
Review of Systems
General: Other (Per HPI)
Objective Data
Data Reviewed
Vital Signs / I&O:
Vital Signs
Temp Pulse Resp BP Pulse Ox
96.1 F L 72 32 166/95 93
07/08/24 07:25 07/08/24 08:00 07/08/24 08:00 07/08/24 08:00 07/08/24 08:00
Intake and Output
07/07/24 07/08/24 07/09/24
06:59 06:59 06:59
Intake Total 900 / 900
Balance 900 / 900
SaO2: 93
Nasal Cannula flow liters per minute: 6
Physical Exam
General: Respiratory Distress (Mild), Comfortable and T Max
HEENT: Normocephalic, Anicteric and Moist Mucous Membranes
Cardiovascular: Regular Rhythm and Peripheral Edema (Trace lower extremity edema bilaterally)
Respiratory: Rhonchi (Bilateral expiratory), Accessory Resp Muscle Use (n), Stridor (n) and Other (Diminished breath sounds on the left)
GI: Soft, Non Distended, Non Tender and Normal Bowel Sounds
Neurology: Awake, Alert, Tremors (negative) and Lethargic (Easily arousable to voice and following commands)
Skin: Warm, Good Color and Cyanosis (n)
Labs/Micro/Reports
Lab Data
07/08/24 03:36
07/08/24 03:36
Microbiology
06/29/24 08:24 Pleural Fluid Fungal Culture - Preliminary
Culture in progress.
Positive cultures are reported as soon as detected.
Final report to follow in four to five weeks.
--- NOTE | 2024-07-08 09:28 | PTCARENOTE ---
This nurse spoke with [facility] ANTONIO who stated they are waiting for case management discharge planning for pleur-x catheter before placing. Dr Joseph made aware when on unit to see patient.
--- NOTE | 2024-07-08 10:25 | W.PN.NEPH.HD ---
Assessment
-
Seen on HD. no complaints. VSS, access ok
thoracentesis pending
Progress Note - Hemodialysis
-
Date of Service: July 08, 2024
Duration: 30 minutes and 3 hours
Potassium Bath: 3
Calcium Bath: 2.5
Opti-Dialyzer: 160
Ultrafiltration: Other (3kg)
Blood Flow: 400
Dialysate Flow: 600
Heparin: 0
EPO: 81858 units
[2024-07-08] MEDS: HEPARIN 3600 UNITS INTRACATH (11:38)
--- NOTE | 2024-07-08 12:19 | PTCARENOTE ---
Received call from daughter who stated she is concerned that patient is feeling down and sounds worse with breathing and sputum. She states that patient told her he 'feels like he is going to go south.' Daughter stated that she has been working
with telephonic nurse case manager Amairani and that she believes she found a facility for her father in [place] that will work with pleurx catheter. TT sent to Dr Villarreal and Dr Faria with this information.
[2024-07-08] MEDS: SANTYL OINTMENT 1 APPLIC TOPICAL (12:54)
--- NOTE | 2024-07-08 15:02 | PTCARENOTE ---
Patient sent to IR via stretcher with O2 6l midflow in use.
[2024-07-08 16:04] LABS: Body Fluid Mononuclear 76.7 %; Body Fluid Polymorphonuclear 23.3 %; Body Fluid WBC 292 /CUMM
[2024-07-08 16:10] LABS: Body Fluid Second Tech FB
[2024-07-08 16:16] LABS: Body Fluid Glucose 84 mg/dl; Body Fluid LDH 87 U/L; Body Fluid Protein 3.2 g/dl
--- NOTE | 2024-07-08 17:26 | CM ---
Patient from [facility] with Hx ESRD on HD, CVA w left hemiparesis, PEG tube feedings with Dx L mainstem bronchus obstruction secondary to secretions. Thoracentesis & CXR today. O2 6L. Last PT & OT 07/06 recommend skilled rehab.
Spoke with [facility]; she is hoping to accept the patient, asked additional questions about the LTC plan, contacted the daughter and is asking for updated clinical info for LTAC physician review and Hepatitis labs---> request for
hep labs to [facility].
Spoke with [facility]; re; referral.
Response in [facility]: their physician reviewed/declined due to concerns re; likelihood to benefit from LTACH with clear path to SNF. -recurring aspirations, history of needing thoracentesis, and feel he will not likely be able to be sent to SNF
given ongoing aspiration, pleural cath and likely needing bedside dialysis ongoing with his history. feel his return to acute given need for pleural cath is too high.
CM responded that pleural catheter is short term need until drainage lessens as per our peanut salter.
Plan follow up with [facility] for acceptance.
[2024-07-08] MEDS: CRESTOR 20 MG TUBE (18:36)
--- NOTE | 2024-07-08 19:26 | PTCARENOTE ---
Patient reports feeling much more comfortable since returning from [facility]. Currently asleep,
[2024-07-08] MEDS: MELATONIN 5 MG TUBE (19:54)
[2024-07-08] MEDS: FOLVITE 2 MG TUBE (19:54)
--- NOTE | 2024-07-08 23:26 | PTCARENOTE ---
Received pt from [facility]. Pt aaox3, able to make needs known. Flat affect, withdrawn. New tube feed hung, tubing replaced. Remains on Nepro @50ml/hr with 25ml/hr flush. All meds given through PEG tube. Pt requested something to help with anxiety
before bed, 0.25mg Xanax given through PEG tube @20:08. Pt resting comfortably in bed at this time, no further c/o anxiety. VSS. Care ongoing.
[2024-07-09] VITALS (23 sets, daily range): BP systolic 135–164; BP diastolic 86–102; PULSE 77; O2SAT 98; BMI 19.2; BMI 19.1
--- NOTE | 2024-07-09 04:49 | PTCARENOTE ---
weaned down to 3LNC, SaO2 98%
[2024-07-09 05:02] LABS: Hematocrit 30.6 % (39.0-52.0); Hemoglobin 9.8 g/dL (13.0-18.0); Mean Corpuscular Hgb 29.5 pg (27.0-31.0); Mean Corpuscular Volume 92.2 fL (80.0-94.0); Mean Platelet Volume 8.5 fL (7.4-10.4); Platelet Count 406 10^3/uL (130-400); Red Blood Cell Count 3.32 10^6/uL (4.70-6.10); Red Cell Dist. Width 16.2 % (11.5-14.5)
[2024-07-09 05:31] LABS: Blood Urea Nitrogen 35 mg/dl (9-20); Calcium 10.1 mg/dl (8.4-10.2); Carbon Dioxide 30 mmol/L (22-30); Chloride 100 mmol/L (98-107); Estimated Creatinine Clearance 25 ml/min; Glucose 90 mg/dl (70-99); Sodium 139 mmol/L (135-145); eGFR 26.05
[2024-07-09] MEDS: WELLBUTRIN REGULAR RELEASE 150 MG TUBE ×2 (07:34→19:37)
[2024-07-09] MEDS: SENSIPAR 120 MG TUBE (07:35)
[2024-07-09] MEDS: PREVACID 15 MG TUBE (07:35)
[2024-07-09] MEDS: HEPARIN 5000 UNITS SC ×2 (07:35→19:37)
[2024-07-09] MEDS: MIRALAX TUBE (07:35)
[2024-07-09] MEDS: LOW STRENGTH ASPIRIN 81 MG TUBE (07:35)
--- NOTE | 2024-07-09 08:03 | W.PN.PUL.V3 ---
Today's Communication / Plan
-
Continue to wean oxygen
Much improved after thoracentesis
Hemodialysis tomorrow
Pleurx catheter if fairly rapid pleural fluid reaccumulation
Assessment
-
Patient is a 60-year-old gentleman with known history of carotid artery disease status post right CEA in the past, end-stage renal disease on hemodialysis, hypertension, hyperlipidemia, congestive heart failure with reduced ejection fraction of 40
to 45% as well as history of stroke in the past, who was brought from the snf facility for worsening shortness of breath. Patient reportedly has been feeling short of breath over the last couple of weeks which has been progressively
getting worse. Reported diagnosis of low enzymes patient has been on Tamiflu. In view of worsening respiratory status he was transferred to the emergency room for further workup. Imaging in the emergency room showing showed near complete collapse
of the left lung with large pleural effusion as well as moderate pleural effusion on the right side. Patient also was noted to have significantly elevated troponin along with sinus bradycardia. Patient was started on broad-spectrum antibiotics,
aspirin as well as heparin drip for suspected NSTEMI and was admitted to hospitalist service.
In view of large effusion, interventional radiology and pulmonary service were requested for further input. Patient had thoracentesis performed with gradual improvement. Patient subsequently had a cardiopulmonary arrest and required CPR on 06/23
and CODE STATUS was reversed from DNR to full code. Patient was intubated for 2 days and it was felt to be related to mucous plug obstructing left main bronchus. Patient was successfully extubated on 06/25/24.
Bilateral pleural effusions left greater than right status post thoracentesis x 3
Status post intubation and mechanical ventilation-06/23/2024 through 06/25/2024
Cardiac arrest status post asystole-epi, CPR ROSC in 3 minutes
Sinus bradycardia
Aspiration risk
Lung atelectasis due to mucous plugging and pleural effusion
CHF with preserved EF
End-stage renal disease on hemodialysis
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
Plan
Respiratory status improved significantly after thoracentesis and hemodialysis yesterday
Supplemental oxygen as needed-currently on 3 L - 98% saturation
Status post intubation/ and extubated 06/25/2024
Aspiration precautions
Mucus clearing devices-he has tried vest therapy in the past without much success according to patient
Mucolytic's
Nebulizers-3% saline as well as albuterol
Bronchoscopy would be considered if cannot mobilize mucous plug after thoracentesis
Chest x-ray 07/09/2023-small right pleural effusion, improved aeration of the left lung with some left basilar consolidation
Interventional radiology-thoracentesis performed 07/08/2024 urgently due to significant shortness of breath and overweight definitive ASEPT catheter on the left side if insurance allows
Thoracentesis 07/08/24--750 mL of yellow pleural fluid
Cultures reviewed
Sputum was tbiotnfe-Uxxerrmrptr-evzqwlqks 7 days of antibiotics-suspected colonization rather than active pneumonia
Nephrology following-correspondence reviewed
Hemodialysis Yhwrsu-Ndukrfcbb-[facility]
Parathyroidectomy will likely be needed for persistent hypercalcemia-surgery evaluated-surgery once medically stable
DVT prophylaxis-on subcu heparin
Nutrition-on tube feeds
Bedside range of motion/physical therapy
Family meeting
Dr. Garcia met with patient's daughter as well as ex-. Goals of care discussions took place in the presence of palliative care nurse. Patient's family requesting medical team to discuss again with the patient regarding his CODE STATUS and
wishes in future as he had been DNR/DNI in the past but was temporarily intubated in the setting of mucous plug.
Data:
CXR 05/2024: 1. Near complete opacification of the left hemithorax which is likely secondary to a large left pleural effusion and airspace consolidation (compressive atelectasis or pneumonia).
2. Moderate ground-glass opacity in the infrahilar right lower lung which could be subsegmental atelectasis or pneumonia.
3. Right IJ hemodialysis catheter in place.
4. Chronic impacted fracture of the right humeral neck.
CT Chest 05/2024: 1. Complete endobronchial obstruction of the left mainstem bronchus containing layering secretions. SEVERE NEAR COMPLETE AIRSPACE CONSOLIDATION of the LEFT UPPER and LOWER LOBES (either atelectasis or pneumonia).
2. LARGE LEFT PLEURAL EFFUSION.
3. Moderate to large right pleural effusion.
4. Moderate to severe cardiomegaly.
5. Severe calcific atherosclerotic plaque in the coronary arteries.
6. Right IJ hemodialysis catheter in place.
7. Chronic impacted fracture of the right proximal humerus.
Subjective Data
-
Date of Service:
Date of Service: July 09, 2024
Chief Complaint: Pulmonary Follow Up (Hypoxemic respiratory failure-bilateral pleural effusion) and Dyspnea Follow Up
Subjective:
Feels better after thoracentesis, still has some chest congestion, difficulties mobilizing secretions, less short of breath, no chest pain or abdominal pain
Review of Systems
General: Other (Per HPI)
Objective Data
Data Reviewed
Vital Signs / I&O:
Vital Signs
Temp Pulse Resp BP Pulse Ox
96.6 F L 77 27 155/100 97
07/09/24 07:34 07/09/24 06:00 07/09/24 06:00 07/09/24 06:00 07/09/24 06:00
Intake and Output
07/08/24 07/09/24 07/10/24
06:59 06:59 06:59
Intake Total 900 / 900
Balance 900 / 900
SaO2: 97
Nasal Cannula flow liters per minute: 6
Physical Exam
General: Respiratory Distress (Mild), Comfortable and T Max
HEENT: Normocephalic, Anicteric and Moist Mucous Membranes
Cardiovascular: Regular Rhythm and Peripheral Edema (Trace lower extremity edema bilaterally)
Respiratory: Rhonchi (Bilateral expiratory), Accessory Resp Muscle Use (n), Stridor (n) and Other (Diminished breath sounds on the left)
GI: Soft, Non Distended, Non Tender and Normal Bowel Sounds
Neurology: Awake, Alert, Tremors (negative) and Lethargic (Easily arousable to voice and following commands)
Skin: Warm, Good Color and Cyanosis (n)
Labs/Micro/Reports
Lab Data
07/09/24 04:15
07/09/24 04:15
Microbiology
07/08/24 15:21 Pleural Fluid Gram Stain - Preliminary
06/29/24 08:24 Pleural Fluid Fungal Culture - Preliminary
Culture in progress.
Positive cultures are reported as soon as detected.
Final report to follow in four to five weeks.
--- NOTE | 2024-07-09 09:34 | W.PN.HOSP.TC ---
Addendum entered and electronically signed by Benedict Villarreal MD 07/09/24 16:34:
I saw and evaluated the patient. I reviewed the resident�s note and agree with findings and plan as documented in the resident�s note.
1. Left mainstem bronchus obstruction, recurrent aspiration -patient have increased secretion and potential for recurrent bronchus obstruction and related complication. Despite maximal pulmonary toileting effort patient pulmonary status remains
precarious
2. Recurrent pleural effusion -patient underwent right-sided thoracentesis of 1.1 L. And left-sided thoracentesis of 1.45 L followed by 1.75 L. A Pleurx catheter was planned although insurance approval did not come through. Instead of
therapeutic centesis was done with drainage of 750 cc of pleural fluid from left side. Patient's dyspnea symptom has much more improved after this.
3. Acute hypoxic respiratory failure, ventilator dependent respiratory failure, PEA/cardiac arrest -patient had episode of mucous plugging with respiratory arrest. Patient was bradycardic at that time and likely added to the problem. Patient
require ventilator support and was able to be extubated. Currently on oxygen through nasal cannula. Complaining some increased dyspnea in light of re-accumulating pleural effusion and likely diffuse mucous plugging happening on the left lung.
4. Hypercalcemia/parathyroid adenoma/secondary hyper-parathyroidism -patient has significant hypocalcemia and likely secondary to ESRD/secondary hyper-parathyroidism and parathyroid adenoma found on imaging. Parathyroid hormone close to 1000.
Patient has been maximized on Cinacalcet and also has been provided calcitonin/bisphosphonates. In light of refractory nature of hypercalcemia surgery has been consulted, patient is a candidate for minimally invasive parathyroidectomy once
pulmonary status stabilizes.
5. NSTEMI -patient was managed conservatively and has finished few days of heparin drip therapy. Echocardiogram showing ejection fraction of 50 to 55%.
6. Diastolic heart failure exacerbation -patient volume status being managed by hemodialysis, patient makes some urine.
Original Note:
Today's Communication/Plan
-
wean O2 as able
HD tw
Assessment / Plan
Assessment / Plan
L mainstem bronchus obstruction secondary to secretions
B/l pleural effusions likely secondary to underlying CHF and ESRD
- aspiration risk
- hx CVA/peg tube on tube feeding
- CPT
- resp cx: Pseudomonas, completed 7 days abx
- cont flutter valve
- L thoracentesis #1: 1450 cc straw-colored pleural fluid
- R thoracentesis #1: 1100 cc of clear yellow pleural fluid.
- L thoracentesis #2: 1750 cc of serosanguineous pleural fluid.
- L thoracentesis #3: 750 cc of clear yellow pleural fluid.
Cardiac arrest secondary to asystole
Ventilator dependent respiratory failure - resolved
- required 1 epi and 1 round CPR, ROSC in 3min
- intubated during code
- Post intubation CXR reviewed persistent homogeneous retrocardiac left lower lobe opacity.
NSTEMI
CHF
- trop max 10.7
- was on a heparin drip
- Echo: LVEF 50-55%
- ASA, statin
- hold BB due to recent severe bradycardia
Acute on chronic HFpEF
- proBNP elevated
- echo: LVEF 50-55%
- volume overload managed by HD
Sinus bradycardia w 1st degree AV block - improving
- 06/22: HR 30s, encephalopathic. Dopamine started
- hypoxia, hyperglycemia, hypercalcemia may play a role
Hypercalcemia secondary to parathyroid adenoma and hyperparathyroidism secondary to renal dysfunction
- vit D deficiency
- on cinacalcit
- CT CAP: enlarged parathyroid
- thyroid us: parathyroid adenoma
- pamidronate x1
- surgery consulted - agreeable to perform when medically stable
Hx CVA w L hemiparesis, dysarthria, dysphagia
- cont tube feeding
ESRD on MWF HD
anemia of chronic disease
- HD due 07/08
- transfused 2 unit pRBCs
Severe calcific atherosclerotic plaque in the coronary arteries on CT Chest
Right chronically impacted humeral neck fracture -imaging finding on CT chest, needs to be verified with previous records
Hyponatremia
Recent Flu
Benign Hypertension
Hyperlipidemia
Carotid artery disease s/p R CEA
BPH
Depression
Diet: tube feeding
DVT Prophylaxis: Heparin SUBQ
Code Status: DNR/DNI
Anticipated Discharge: > 48 hours
Subjective/Interval History
-
Date of Service: July 09, 2024
Thoracentesis yesterday, tolerated procedure well
Objective Data
-
Labs:
Laboratory Results
07/09/24
04:15
WBC 7.0
Hgb 9.8 L
Hct 30.6 L
Plt Count 406 H
Sodium 139
Potassium 4.0
Chloride 100
Carbon Dioxide 30
BUN 35 H
Creatinine 2.6 H
Glucose 90
Calcium 10.1
Vital Signs:
Vital Signs
Temp Pulse Resp BP Pulse Ox
96.6 F L 77 27 155/100 97
07/09/24 07:34 07/09/24 06:00 07/09/24 06:00 07/09/24 06:00 07/09/24 08:03
I&O
07/08/24 07/09/24 07/10/24
06:59 06:59 06:59
Intake Total 900 / 900
Balance 900 / 900
Review of Systems
-
History Source: Patient
Constitutional: Reports No Symptoms
EENT: Reports No Symptoms Reported
Respiratory: Reports Trouble Breathing
Cardiac: Reports No Symptoms
Abdomen/GI: Reports No Symptoms
Musculoskeletal: Reports No Symptoms
Skin: Reports No Symptoms
Neuro: Reports No Symptoms
Physical Exam
-
General: Well Developed, Well Nourished and Respiratory Distress
HEENT: Normocephalic and Atraumatic
Respiratory: Wheezes and Accessory Resp Muscle Use
Cardiac: Regular Rhythm and S1/S2
GI: Soft, Nontender, Nondistended and Normal Bowel Sounds
Musculoskeletal: No Clubbing, No Cyanosis and No Edema
Skin: Warm and Dry
Neuro: Awake and Alert
--- NOTE | 2024-07-09 10:55 | CM ---
Patient from [facility] with Hx ESRD on HD, CVA w left hemiparesis, PEG tube feedings with Dx L mainstem bronchus obstruction secondary to secretions, s/p thoracentesis x3. O2 3L. PT & OT 07/09 recommend skilled rehab.
Messages with Dr Villarreal who confirms plan is still for placement of pleural catheter if pleural fluid reaccumulates, which is has done 3x.
Spoke with Lida, [facility]; she is hoping to accept the patient and still needs full hepatitis labs, however CM can initiate auth today. Daughter did tour today of their facility.
Spoke with Tawnya, daughter; she toured [facility] today with [place], their communications consultant Assurance, and liked the facility. She agrees to CM going ahead placement at [facility].
Spoke with Renetta, [facility] Pre-Auth Dept (ph [phone]); [facility] auth initiated, pending auth # [id number]. Clinicals need to be sent to fax [phone]---> sent via [employer].
Plan [facility] once insurance approves and pleural catheter is inserted.
--- NOTE | 2024-07-09 11:35 | PTCARENOTE ---
Assumed care of patient at beginning of this shift from previous RN. Patient states he feels much better since having thoracentesis. This nurse spoke with Dr Faria regarding respiratory treatment orders that were cancelled; she stated she will
discuss with Dr Villarreal during rounds. This nurse also reviewed with Dr Joseph who stated he will review orders. Patient has current order for chest PT. Continues with coarse breath sounds and rhonchi t/o; occasional moist, weak productive cough of
thick white sputum that he self-suctions. Currently 94-96% on 3L midflow.
--- NOTE | 2024-07-09 11:40 | PTCARENOTE ---
Daughter at bedside requesting to speak with physician; she stated she will be here til approximately 12:30. TT sent to Dr Villarreal.
--- NOTE | 2024-07-09 12:46 | W.PN.NEPH.PH ---
Today's Communication / Plan
-
HD tomorrow
Assessment/Plan
-
Impression:
ESRD MWF
Hypoxia/left lung atelectasis versus pneumonia
Large left pleural effusion s/p thoracentesis 06/21
CHF
Anemia
Hypertension hx
Hyponatremia
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
Hyperphosphatemia
PEG
Non-ST elevation PR
History of stroke with subsequent left hemiparesis dysarthria and dysphagia
Tunneled right HD IJ catheter
Chronic impacted right proximal humerus fracture
hypercalcemia
Plan:
Sensipar 120mg daily also using 2 Ca bath
HD tomorrow
Check hepatitis
Await placement
-
-
Date of Service: July 09, 2024
CC / HPI / ROS
-
Chief Complaint:
ESRD
History of Present Illness:
hemodynamically stable
Calcium normal today
Hemodialysis on Saturday schedule
Tolerated dialysis yesterday
Review of Systems:
No chest pain or shortness of breath
No fever
Labs
-
Labs:
WBC 7.0 10^3/uL (4.8-10.8) 07/09/24 04:15
RBC 3.32 10^6/uL (4.70-6.10) L 07/09/24 04:15
Hgb 9.8 g/dL (13.0-18.0) L 07/09/24 04:15
Hct 30.6 % (39.0-52.0) L 07/09/24 04:15
Plt Count 406 10^3/uL (130-400) H 07/09/24 04:15
Sodium 139 mmol/L (135-145) 07/09/24 04:15
Potassium 4.0 mmol/L (3.5-5.1) 07/09/24 04:15
Chloride 100 mmol/L (98-107) 07/09/24 04:15
Carbon Dioxide 30 mmol/L (22-30) 07/09/24 04:15
BUN 35 mg/dl (9-20) H 07/09/24 04:15
Creatinine 2.6 mg/dL (0.7-1.3) H 07/09/24 04:15
eGFR 26.05 07/09/24 04:15
Glucose 90 mg/dl (70-99) 07/09/24 04:15
Calcium 10.1 mg/dl (8.4-10.2) 07/09/24 04:15
Phosphorus 2.5 mg/dl (2.5-4.5) 06/22/24 12:03
Yfe-B-Xtemtihhqej Pept > 89544 pg/ml 06/20/24 18:13
Albumin 2.3 g/dl (3.5-5.0) L 06/25/24 04:13
Physical Exam
-
Vital Signs:
Vital Signs
Temp Pulse Resp BP Pulse Ox
96.6 F L 77 28 164/99 97
07/09/24 11:00 07/09/24 12:14 07/09/24 12:14 07/09/24 12:00 07/09/24 12:14
Cardiovascular:: Regular rate and rhythm
Respiratory:: Bilateral: Coarse
Lung Excursion:: Normal
Abdomen:: Nontender and Soft
Bowel Sounds:: Normal
Extremity Edema:: None: Bilateral:
[2024-07-09] MEDS: SANTYL OINTMENT 1 APPLIC TOPICAL (16:12)
[2024-07-09] MEDS: CRESTOR 20 MG TUBE (17:32)
[2024-07-09] MEDS: COZAAR 25 MG TUBE (18:07)
[2024-07-09] MEDS: XANAX 0.25 MG TUBE (18:11)
[2024-07-09] MEDS: FOLVITE 2 MG TUBE (19:37)
[2024-07-09] MEDS: MELATONIN 5 MG TUBE (19:37)
--- NOTE | 2024-07-09 23:59 | PTCARENOTE ---
Pt aaox3, able to make needs known, rings appropriately. Remains on 3LNC SaO2 97%. Lungs course with loud scattered rhonchi. PEG tube site intact. New bottle of tube feed hung, Nepro with Carbsteady @50ml/hr with 25ml/hr flush. No c/o pain. VSS.
Care ongoing.
[2024-07-10] VITALS (27 sets, daily range): BP systolic 122–167; BP diastolic 79–102; BMI 19.5
[2024-07-10] MEDS: MIRALAX TUBE (07:21)
[2024-07-10] MEDS: HEPARIN 5000 UNITS SC ×2 (07:31→20:23)
[2024-07-10] MEDS: PREVACID 15 MG TUBE (07:31)
[2024-07-10] MEDS: WELLBUTRIN REGULAR RELEASE 150 MG TUBE ×2 (07:31→20:23)
[2024-07-10] MEDS: SENSIPAR 120 MG TUBE (07:31)
[2024-07-10] MEDS: LOW STRENGTH ASPIRIN 81 MG TUBE (07:31)
[2024-07-10] MEDS: SANTYL OINTMENT 1 APPLIC TOPICAL (07:31)
--- NOTE | 2024-07-10 07:55 | W.PN.HOSP.TC ---
Today's Communication/Plan
-
- HD today
Assessment / Plan
Assessment / Plan
L mainstem bronchus obstruction secondary to secretions
B/l pleural effusions likely secondary to underlying CHF and ESRD
- aspiration risk
- hx CVA/peg tube on tube feeding
- CPT
- resp cx: Pseudomonas, completed 7 days abx
- cont flutter valve
- L thoracentesis #1: 1450 cc straw-colored pleural fluid
- R thoracentesis #1: 1100 cc of clear yellow pleural fluid.
- L thoracentesis #2: 1750 cc of serosanguineous pleural fluid.
- L thoracentesis #3: 750 cc of clear yellow pleural fluid.
Cardiac arrest secondary to asystole
Ventilator dependent respiratory failure - resolved
- required 1 epi and 1 round CPR, ROSC in 3min
- intubated during code
- Post intubation CXR reviewed persistent homogeneous retrocardiac left lower lobe opacity.
NSTEMI
CHF
- trop max 10.7
- was on a heparin drip
- Echo: LVEF 50-55%
- ASA, statin
- hold BB due to recent severe bradycardia
Acute on chronic HFpEF
- proBNP elevated
- echo: LVEF 50-55%
- volume overload managed by HD
Sinus bradycardia w 1st degree AV block - improving
- 06/22: HR 30s, encephalopathic. Dopamine started
- hypoxia, hyperglycemia, hypercalcemia may play a role
Hypercalcemia secondary to parathyroid adenoma and hyperparathyroidism secondary to renal dysfunction
- vit D deficiency
- on cinacalcit
- CT CAP: enlarged parathyroid
- thyroid us: parathyroid adenoma
- pamidronate x1
- surgery consulted - agreeable to perform when medically stable
Hx CVA w L hemiparesis, dysarthria, dysphagia
- cont tube feeding
ESRD on MWF HD
anemia of chronic disease
- HD due 5/14
- transfused 2 unit pRBCs
Severe calcific atherosclerotic plaque in the coronary arteries on CT Chest
Right chronically impacted humeral neck fracture -imaging finding on CT chest, needs to be verified with previous records
Hyponatremia
Recent Flu
Benign Hypertension
Hyperlipidemia
Carotid artery disease s/p R CEA
BPH
Depression
Diet: tube feeding
DVT Prophylaxis: Heparin SUBQ
Code Status: DNR/DNI
Anticipated Discharge: > 48 hours
Subjective/Interval History
-
Date of Service: July 10, 2024
No acute overnight events. HD today
Objective Data
-
Labs:
Laboratory Results
07/10/24
06:00
WBC Pending
Hgb Pending
Hct Pending
Plt Count Pending
Sodium Pending
Potassium Pending
Chloride Pending
Carbon Dioxide Pending
BUN Pending
Creatinine Pending
Glucose Pending
Calcium Pending
Vital Signs:
Vital Signs
Temp Pulse Resp BP Pulse Ox
97.1 F 72 23 149/102 98
07/10/24 04:43 07/10/24 06:10 07/10/24 06:10 07/10/24 06:10 07/10/24 06:10
I&O
07/09/24 07/10/24 07/11/24
06:59 06:59 06:59
Intake Total 900 / 900 850 / 850
Balance 900 / 900 850 / 850
Review of Systems
-
History Source: Patient
Constitutional: Reports No Symptoms
Respiratory: Reports Trouble Breathing
Cardiac: Reports No Symptoms
Abdomen/GI: Reports No Symptoms
Musculoskeletal: Reports No Symptoms
Skin: Reports No Symptoms
Neuro: Reports No Symptoms
Physical Exam
-
General: Well Developed, Well Nourished and Respiratory Distress
HEENT: Normocephalic and Atraumatic
Respiratory: Wheezes and Accessory Resp Muscle Use
Cardiac: Regular Rhythm and S1/S2
GI: Soft, Nontender, Nondistended and Normal Bowel Sounds
Musculoskeletal: No Clubbing, No Cyanosis and No Edema
Skin: Warm and Dry
Neuro: Awake and Alert
--- NOTE | 2024-07-10 08:20 | W.PN.PUL.V3 ---
Today's Communication / Plan
-
Monitor for pleural fluid reaccumulation
Probable Pleurx catheter when pleural fluid reaccumulate's
Hemodialysis
Deep suction and mobilize secretions as tolerated
Assessment
-
Patient is a 60-year-old gentleman with known history of carotid artery disease status post right CEA in the past, end-stage renal disease on hemodialysis, hypertension, hyperlipidemia, congestive heart failure with reduced ejection fraction of 40
to 45% as well as history of stroke in the past, who was brought from the senior living facility for worsening shortness of breath. Patient reportedly has been feeling short of breath over the last couple of weeks which has been progressively
getting worse. Reported diagnosis of low enzymes patient has been on Tamiflu. In view of worsening respiratory status he was transferred to the emergency room for further workup. Imaging in the emergency room showing showed near complete collapse
of the left lung with large pleural effusion as well as moderate pleural effusion on the right side. Patient also was noted to have significantly elevated troponin along with sinus bradycardia. Patient was started on broad-spectrum antibiotics,
aspirin as well as heparin drip for suspected NSTEMI and was admitted to hospitalist service.
In view of large effusion, interventional radiology and pulmonary service were requested for further input. Patient had thoracentesis performed with gradual improvement. Patient subsequently had a cardiopulmonary arrest and required CPR on 06/23
and CODE STATUS was reversed from DNR to full code. Patient was intubated for 2 days and it was felt to be related to mucous plug obstructing left main bronchus. Patient was successfully extubated on 06/25/24.
Bilateral pleural effusions left greater than right status post thoracentesis x 3
Status post intubation and mechanical ventilation-06/23/2024 through 06/25/2024
Cardiac arrest status post asystole-epi, CPR ROSC in 3 minutes
Sinus bradycardia
Aspiration risk
Lung atelectasis due to mucous plugging and pleural effusion
CHF with preserved EF
End-stage renal disease on hemodialysis
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
Plan
Respiratory status improved significantly after thoracentesis and hemodialysis 07/08/2024
Supplemental oxygen as needed-currently on 3 L - 98% saturation
Status post intubation chest x-ray06/23/24 and extubated 06/25/2024
Aspiration precautions
Mucus clearing devices-he has tried vest therapy in the past without much success according to patient
Mucolytic's
Nebulizers-3% saline as well as duonebs
Bronchoscopy would be considered if cannot mobilize mucous plug after thoracentesis
Chest x-ray 07/09/2023-small right pleural effusion, improved aeration of the left lung with some left basilar consolidation
Follow occasional
Interventional radiology-thoracentesis performed 07/08/2024 urgently due to significant shortness of breath and eventual definitive ASEPT catheter on the left side if insurance allows
Thoracentesis 07/08/24--750 mL of yellow pleural fluid
Follow chest x-ray and likely with Pleurx catheter
Cultures reviewed
Sputum was lphotypq-Weaainohqxy-tituxjwtu 7 days of antibiotics-suspected colonization rather than active pneumonia
Nephrology following-correspondence reviewed
Hemodialysis Lwcbdy-Mmzsjozar-Jqgpsi
Parathyroidectomy will likely be needed for persistent hypercalcemia-surgery evaluated-surgery once medically stable
DVT prophylaxis-on subcu heparin
Nutrition-on tube feeds
Bedside range of motion/physical therapy
Reviewed with nursing
Family meeting
Dr. Garcia met with patient's daughter as well as ex-. Goals of care discussions took place in the presence of palliative care nurse. Patient's family requesting medical team to discuss again with the patient regarding his CODE STATUS and
wishes in future as he had been DNR/DNI in the past but was temporarily intubated in the setting of mucous plug.
Data:
CXR 05/2024: 1. Near complete opacification of the left hemithorax which is likely secondary to a large left pleural effusion and airspace consolidation (compressive atelectasis or pneumonia).
2. Moderate ground-glass opacity in the infrahilar right lower lung which could be subsegmental atelectasis or pneumonia.
3. Right IJ hemodialysis catheter in place.
4. Chronic impacted fracture of the right humeral neck.
CT Chest 05/2024: 1. Complete endobronchial obstruction of the left mainstem bronchus containing layering secretions. SEVERE NEAR COMPLETE AIRSPACE CONSOLIDATION of the LEFT UPPER and LOWER LOBES (either atelectasis or pneumonia).
2. LARGE LEFT PLEURAL EFFUSION.
3. Moderate to large right pleural effusion.
4. Moderate to severe cardiomegaly.
5. Severe calcific atherosclerotic plaque in the coronary arteries.
6. Right IJ hemodialysis catheter in place.
7. Chronic impacted fracture of the right proximal humerus.
Subjective Data
-
Date of Service:
Date of Service: July 10, 2024
Chief Complaint: Pulmonary Follow Up (Hypoxemic respiratory failure-bilateral pleural effusion) and Dyspnea Follow Up
Subjective:
Feels better no complaints of increased shortness of breath, still some chest congestion, on hemodialysis, no chest pain or abdominal pain
Review of Systems
General: Other
Objective Data
Data Reviewed
Vital Signs / I&O:
Vital Signs
Temp Pulse Resp BP Pulse Ox
97.8 F 72 23 149/102 98
07/10/24 07:59 07/10/24 06:10 07/10/24 06:10 07/10/24 06:10 07/10/24 06:10
Intake and Output
07/09/24 07/10/24 07/11/24
06:59 06:59 06:59
Intake Total 900 / 900 850 / 850
Balance 900 / 900 850 / 850
SaO2: 98
Nasal Cannula flow liters per minute: 3
Physical Exam
General: Respiratory Distress (Mild), Comfortable and T Max
HEENT: Normocephalic, Anicteric and Moist Mucous Membranes
Cardiovascular: Regular Rhythm and Peripheral Edema (Trace lower extremity edema bilaterally)
Respiratory: Rhonchi (Bilateral expiratory), Accessory Resp Muscle Use (n), Stridor (n) and Other (Diminished breath sounds on the left)
GI: Soft, Non Distended, Non Tender and Normal Bowel Sounds
Neurology: Awake, Alert, Tremors (negative) and Lethargic (Easily arousable to voice and following commands)
Skin: Warm, Good Color and Cyanosis (n)
Labs/Micro/Reports
Microbiology
07/08/24 15:21 Pleural Fluid Body Fluid Culture - Preliminary
No Growth After 18-24 Hours
07/08/24 15:21 Pleural Fluid Gram Stain - Preliminary
[2024-07-10 08:33] LABS: Hematocrit 28.5 % (39.0-52.0); Hemoglobin 9.3 g/dL (13.0-18.0); Mean Corp Hgb Conc. 32.6 g/dL (33.0-37.0); Mean Corpuscular Hgb 30.1 pg (27.0-31.0); Mean Corpuscular Volume 92.2 fL (80.0-94.0); Mean Platelet Volume 8.7 fL (7.4-10.4); Platelet Count 410 10^3/uL (130-400); Red Blood Cell Count 3.09 10^6/uL (4.70-6.10); Red Cell Dist. Width 16.5 % (11.5-14.5); White Blood Cell Count 8.6 10^3/uL (4.8-10.8)
--- NOTE | 2024-07-10 08:56 | W.PN.NEPH.HD ---
Assessment
-
Patient seen on dialysis
Systolic blood pressure 126 at current u/f
Progress Note - Hemodialysis
-
Date of Service: July 10, 2024
Duration: 3 hours
Potassium Bath: 3
Calcium Bath: 2
Opti-Dialyzer: 160
Ultrafiltration: Other (2.5 to 3 kg as hemodynamically tolerated)
Blood Flow: 400
Dialysate Flow: 600
Heparin: none
EPO: 10,000
[2024-07-10] MEDS: RETACRIT 10000 UNITS IV (09:13)
[2024-07-10 09:25] LABS: Hepatitis B Surface Antigen Negative (Negative)
[2024-07-10 09:36] LABS: Blood Urea Nitrogen 59 mg/dl (9-20); Calcium 10.9 mg/dl (8.4-10.2); Carbon Dioxide 31 mmol/L (22-30); Chloride 97 mmol/L (98-107); Estimated Creatinine Clearance 18 ml/min; Glucose 95 mg/dl (70-99); Potassium 4.3 mmol/L (3.5-5.1); Sodium 136 mmol/L (135-145); eGFR 17.63
[2024-07-10 09:42] LABS: Hepatitis B Core Ab, Total Negative (Negative); Hepatitis C Antibody Negative (Negative)
[2024-07-10] MEDS: DUONEB 3 ML INH ×2 (11:10→14:55)
[2024-07-10 11:53] LABS: Hepatitis B Surface Antibody Indeterminate
[2024-07-10] MEDS: ROBITUSSIN 200 MG PO ×3 (14:02→21:12)
--- NOTE | 2024-07-10 16:29 | CM ---
Patient from [facility] with Hx ESRD on HD, CVA w left hemiparesis, PEG tube feedings with Dx L mainstem bronchus obstruction secondary to secretions, s/p thoracentesis.
Received phone call from Dr Martha Ruiz, Dramatic Director; she asked to speak with Physician Advisor Dr Kaiser, provided her phone #. Per Dr Kaiser, she spoke with Dr Ruiz who denied the request for LTAC; he says pleurex catheter
doesn�t meet LTAC level of care. No appeal information was provided. No fax received with denial or appeal information.
Spoke with Tawnya, daughter; provided update that request for [facility] was denied by insurance. Offered that daughter could do family appeal [facility] Pre-Auth Dept (ph [phone]) or appeal # [id number], reference # [id number].
Daughter will do family appeal on Saturday.
Xi Villarreal & Jkae & Brianne, & [facility] IR notified of denial for [facility].
Plan follow up with daughter Sat; family appeal.
Plan TBD.
[2024-07-10] MEDS: CRESTOR 20 MG TUBE (17:32)
[2024-07-10] MEDS: DUONEB INH (20:09)
[2024-07-10] MEDS: MELATONIN 5 MG TUBE (21:11)
[2024-07-10] MEDS: FOLVITE 2 MG TUBE (21:11)
[2024-07-10] MEDS: XANAX 0.25 MG TUBE (23:41)
[2024-07-11] VITALS (12 sets, daily range): BP systolic 130–150; BP diastolic 83–97; BMI 18.8
--- NOTE | 2024-07-11 03:37 | PTCARENOTE ---
Pt having episode of spo2 dropping to 82% on 3L and maintaining during the night. Pt requiring 15L midflow for 10 minutes to bring spo2 up to 97%. RT to bed side for neb treatment and change humidification. Pt able to be tapered back to 3L spo2 98%.
Respiration even unlabored at this time. Assessment care and vitals as charted.
--- NOTE | 2024-07-11 05:36 | PTCARENOTE ---
Pt becoming very agitated and angry when asked about blood work being done this AM. Pt had agreed at first but when stuck Pt was not happy and moved arm. Pt continuing to make complaints about he 'needs sleep' 'why more blood, Im going to rehab
soon' Education and therapeutic communication attempted. Pt still presenting agitated. To diffuse situation RN agreed to pass on when PT wakes he maybe reproached.
[2024-07-11] MEDS: DUONEB 3 ML INH ×4 (07:42→19:37)
[2024-07-11] MEDS: HEPARIN 5000 UNITS SC ×2 (08:59→20:58)
[2024-07-11] MEDS: WELLBUTRIN REGULAR RELEASE 150 MG TUBE ×2 (08:59→20:37)
[2024-07-11] MEDS: SANTYL OINTMENT 1 APPLIC TOPICAL (09:00)
[2024-07-11] MEDS: LOW STRENGTH ASPIRIN 81 MG TUBE (09:00)
[2024-07-11] MEDS: ROBITUSSIN 200 MG PO ×4 (09:00→21:02)
[2024-07-11] MEDS: PREVACID 15 MG TUBE (09:00)
[2024-07-11] MEDS: MIRALAX TUBE (09:00)
[2024-07-11] MEDS: SENSIPAR 120 MG TUBE (09:00)
--- NOTE | 2024-07-11 10:06 | W.PN.HOSP.TC ---
Today's Communication/Plan
-
repeat cxr in morning
continue other pulm toileting measure
eventual placement
Assessment / Plan
Assessment / Plan
1. Left mainstem bronchus obstruction, recurrent aspiration -patient have increased secretion and potential for recurrent bronchus obstruction and related complication. Despite maximal pulmonary toileting effort patient pulmonary status remains
precarious.
2. Recurrent pleural effusion -patient underwent right-sided thoracentesis of 1.1 L. And left-sided thoracentesis of 1.45 L followed by 1.75 L. A Pleurx catheter was planned although insurance approval did not come through. Instead of
therapeutic thoracentesis was done with drainage of 750 cc of pleural fluid from left side. Patient's dyspnea symptom has much more improved after this. Planning to repeat chest x-ray on the weekend. Pleurx catheter somewhat of a limitation for
finding of placement, if not needed patient may get periodic thoracentesis as needed. Favorable scenario would be where patient does not reaccumulate effusion although patient clearly establishing himself as a recurrent left sided pleural effusion
pattern.
3. Acute hypoxic respiratory failure, ventilator dependent respiratory failure, PEA/cardiac arrest -patient had episode of mucous plugging with respiratory arrest. Patient was bradycardic at that time and likely added to the problem. Patient
require ventilator support and was able to be extubated. Currently on oxygen through nasal cannula. Dyspnea has improved with x3 time left-sided thoracentesis. Remains at high risk of decompensation and further respiratory problems.
4. Hypercalcemia/parathyroid adenoma/secondary hyper-parathyroidism -patient has significant hypocalcemia and likely secondary to ESRD/secondary hyper-parathyroidism and parathyroid adenoma found on imaging. Parathyroid hormone close to 1000.
Patient has been maximized on Cinacalcet and also has been provided calcitonin/bisphosphonates. In light of refractory nature of hypercalcemia surgery has been consulted, patient is a candidate for minimally invasive parathyroidectomy once
pulmonary status stabilizes.
5. NSTEMI -patient was managed conservatively and has finished few days of heparin drip therapy. Echocardiogram showing ejection fraction of 50 to 55%.
6. Diastolic heart failure exacerbation -patient volume status being managed by hemodialysis, patient makes some urine.
Anticipated Discharge: > 48 hours
Subjective/Interval History
-
Date of Service: July 11, 2024
Patient pulmonary status bit improved today, speech seemed cleared
Oxygen requirement is stable
Patient remains afebrile
Patient is more awake today
Objective Data
-
Labs:
Laboratory Results
07/11/24
06:00
WBC Pending
Hgb Pending
Hct Pending
Plt Count Pending
Sodium Pending
Potassium Pending
Chloride Pending
Carbon Dioxide Pending
BUN Pending
Creatinine Pending
Glucose Pending
Calcium Pending
Vital Signs:
Vital Signs
Temp Pulse Resp BP Pulse Ox
97.4 F 77 17 146/95 99
07/11/24 06:26 07/11/24 08:00 07/11/24 08:00 07/11/24 08:00 07/11/24 08:00
I&O
07/10/24 07/11/24 07/12/24
06:59 06:59 06:59
Intake Total 850 / 850 1740 / 1740
Output Total 0 / 0
Balance 850 / 850 1740 / 1740
Review of Systems
-
Respiratory: Reports Cough and Trouble Breathing
Cardiac: Reports No Symptoms
Abdomen/GI: Reports No Symptoms
Physical Exam
-
General: Comfortable and Cachectic
HEENT: Oxygen (3L NC)
Respiratory: Clear to Auscultation
Cardiac: Regular Rhythm and S1/S2; Negative Murmur or Rub
GI: Soft, Nontender and Nondistended
Musculoskeletal: No Edema
Neuro: Awake, Alert, Oriented, No Motor Deficits and Nonfocal/Grossly Intact
Psych: Calm
--- NOTE | 2024-07-11 10:19 | W.PN.NEPH.PH ---
Today's Communication / Plan
-
next HD Saturday
Assessment/Plan
-
Impression:
ESRD MWF
Hypoxia/left lung atelectasis versus pneumonia
Large left pleural effusion s/p thoracentesis 06/21
CHF
Anemia
Hypertension hx
Hyponatremia
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
Hyperphosphatemia
PEG
Non-ST elevation [place]
History of stroke with subsequent left hemiparesis dysarthria and dysphagia
Tunneled right HD IJ catheter
Chronic impacted right proximal humerus fracture
hypercalcemia
Plan:
Sensipar 120mg daily also using 2 Ca bath re: hypercalcemia
HD Saturday
Await placement
-
-
Date of Service: July 11, 2024
CC / HPI / ROS
-
Chief Complaint:
ESRD
History of Present Illness:
hemodynamically stable
Calcium normal today
Hemodialysis on Saturday schedule
Tolerated dialysis yesterday
Review of Systems:
No chest pain or shortness of breath
No fever
Labs
-
Labs:
eGFR 17.63 07/10/24 08:18
Phosphorus 2.5 mg/dl (2.5-4.5) 06/22/24 12:03
Ick-H-Pqynthzaorz Pept > 50303 pg/ml 06/20/24 18:13
Albumin 2.3 g/dl (3.5-5.0) L 06/25/24 04:13
Physical Exam
-
Vital Signs:
Vital Signs
Temp Pulse Resp BP Pulse Ox
97.4 F 77 17 146/95 99
07/11/24 06:26 07/11/24 08:00 07/11/24 08:00 07/11/24 08:00 07/11/24 08:00
Cardiovascular:: Regular rate and rhythm
Respiratory:: Bilateral: Coarse
Lung Excursion:: Normal
Abdomen:: Nontender and Soft
Bowel Sounds:: Normal
Extremity Edema:: None: Bilateral:
--- NOTE | 2024-07-11 11:56 | PTCARENOTE ---
pt refused AM labs for this RN and nightshift RN. updated.
--- NOTE | 2024-07-11 16:40 | W.PN.PUL3 ---
Today's Communication / Plan
-
Monitor for pleural fluid reaccumulation
Probable Pleurx catheter when pleural fluid reaccumulates
CXR tomorrow
Hemodialysis
Deep suction and mobilize secretions as tolerated
Assessment
-
Patient is a 60-year-old gentleman with known history of carotid artery disease status post right CEA in the past, end-stage renal disease on hemodialysis, hypertension, hyperlipidemia, congestive heart failure with reduced ejection fraction of 40
to 45% as well as history of stroke in the past, who was brought from the senior living facility for worsening shortness of breath. Patient reportedly has been feeling short of breath over the last couple of weeks which has been progressively
getting worse. Reported diagnosis of low enzymes patient has been on Tamiflu. In view of worsening respiratory status he was transferred to the emergency room for further workup. Imaging in the emergency room showing showed near complete collapse
of the left lung with large pleural effusion as well as moderate pleural effusion on the right side. Patient also was noted to have significantly elevated troponin along with sinus bradycardia. Patient was started on broad-spectrum antibiotics,
aspirin as well as heparin drip for suspected NSTEMI and was admitted to hospitalist service.
In view of large effusion, interventional radiology and pulmonary service were requested for further input. Patient had thoracentesis performed with gradual improvement. Patient subsequently had a cardiopulmonary arrest and required CPR on 06/23
and CODE STATUS was reversed from DNR to full code. Patient was intubated for 2 days and it was felt to be related to mucous plug obstructing left main bronchus. Patient was successfully extubated on 06/25/24.
Bilateral pleural effusions left greater than right status post thoracentesis x 3
Status post intubation and mechanical ventilation-06/23/2024 through 06/25/2024
Cardiac arrest status post asystole-epi, CPR ROSC in 3 minutes
Sinus bradycardia - now normal heart rate
Aspiration risk
Lung atelectasis due to mucous plugging and pleural effusion
CHF with preserved EF
End-stage renal disease on hemodialysis
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
Plan
Respiratory status improved significantly after thoracentesis and hemodialysis 07/08/2024
Supplemental oxygen as needed-currently on 3 L - 98% saturation
Status post intubation 06/23/24 and extubated 06/25/2024
Aspiration precautions
Mucus clearing devices-he has tried vest therapy in the past without much success according to patient
Mucolytics
Duonebs
Bronchoscopy would be considered if cannot mobilize mucous plug after thoracentesis
Chest x-ray 07/09/2023-small right pleural effusion, improved aeration of the left lung with some left basilar consolidation
Follow CXR occasional
Interventional radiology-thoracentesis performed 07/08/2024 urgently due to significant shortness of breath and eventual definitive ASEPT catheter on the left side if insurance allows
Thoracentesis 07/08/24--750 mL of yellow pleural fluid
Follow chest x-ray and likely with Pleurx catheter
Cultures reviewed
Sputum was cultured on 06/23/20242491-[id number] 7 days of antibiotics-suspected colonization rather than active pneumonia
Nephrology following-correspondence reviewed
Hemodialysis Ojkmth-[facility]aylv[facility]-Esrknn
Parathyroidectomy will likely be needed for persistent hypercalcemia-surgery evaluated-surgery once medically stable
DVT prophylaxis-on subcu heparin
Nutrition-on tube feeds
Bedside range of motion/physical therapy
Reviewed with nursing
Family meeting
Dr. Garcia met with patient's daughter as well as ex-. Goals of care discussions took place in the presence of palliative care nurse. Patient's family requesting medical team to discuss again with the patient regarding his CODE STATUS and
wishes in future as he had been DNR/DNI in the past but was temporarily intubated in the setting of mucous plug.
Data:
CXR 05/2024: 1. Near complete opacification of the left hemithorax which is likely secondary to a large left pleural effusion and airspace consolidation (compressive atelectasis or pneumonia).
2. Moderate ground-glass opacity in the infrahilar right lower lung which could be subsegmental atelectasis or pneumonia.
3. Right IJ hemodialysis catheter in place.
4. Chronic impacted fracture of the right humeral neck.
CT Chest 05/2024: 1. Complete endobronchial obstruction of the left mainstem bronchus containing layering secretions. SEVERE NEAR COMPLETE AIRSPACE CONSOLIDATION of the LEFT UPPER and LOWER LOBES (either atelectasis or pneumonia).
2. LARGE LEFT PLEURAL EFFUSION.
3. Moderate to large right pleural effusion.
4. Moderate to severe cardiomegaly.
5. Severe calcific atherosclerotic plaque in the coronary arteries.
6. Right IJ hemodialysis catheter in place.
7. Chronic impacted fracture of the right proximal humerus.
Total time spent today was 38 minutes for this encounter. Time includes reviewing laboratory test/imaging results, reviewing pertinent medical records, obtaining and reviewing medical history, performing an appropriate exam, ordering medications,
tests and procedures. Time also includes documentation of this encounter, coordinating patient care and communicating with other healthcare professionals. Total time does not include separately billed tests performed on this date of service.
Subjective Data
-
Date of Service:
Date of Service: July 11, 2024
Chief Complaint: Pulmonary Follow Up (Hypoxemic respiratory failure-bilateral pleural effusion) and Dyspnea Follow Up
Subjective:
Patient seen earlier this morning (late note entry). Resting in bed in no acute distress. Currently on tube feeds at 50 mL/hr. heart rate 79, BP 146/97 and saturating 99% on 2 L/min. He still endorses shortness of breath. Otherwise denies chest
pain, BILLY, nausea, fevers or chills.
Review of Systems
General: Other (Negative unless mentioned above)
Objective Data
Data Reviewed
Vital Signs / I&O / Oxygen:
Vital Signs
Temp Pulse Resp BP Pulse Ox
97.4 F 80 18 142/91 100
07/11/24 06:26 07/11/24 07:46 07/11/24 07:46 07/11/24 06:00 07/11/24 07:46
Intake and Output
07/10/24 07/11/24 07/12/24
06:59 06:59 06:59
Intake Total 850 / 850 1739
Output Total 0 / 0
Balance 850 / 850 1739
SaO2 [CPAP] 99
SaO2 [A/C] 99
SaO2 100
Nasal Cannula flow liters per 3
minute
Physical Exam
General: Respiratory Distress (Mild), Comfortable, Chills (negative) and Sweats (negative)
HEENT: Normocephalic, Anicteric and Moist Mucous Membranes
Cardiovascular: S1-S2 and Peripheral Edema (negative)
Respiratory: Wheeze (negative), Crackles (negative), Rhonchi (negative), Accessory Resp Muscle Use (n), Stridor (n) and Other (Diminished breath sounds on the left)
GI: Soft, Non Distended, Non Tender and Normal Bowel Sounds
Neurology: Awake, Alert and Tremors (negative)
Skin: Warm, Dry, Cyanosis (n) and Jaundice (negative)
Labs/Micro/Reports
Microbiology
07/08/24 15:21 Pleural Fluid Body Fluid Culture - Preliminary
No Growth After 48 Hours
07/08/24 15:21 Pleural Fluid Gram Stain - Preliminary
[2024-07-11] MEDS: CRESTOR 20 MG TUBE (20:39)
[2024-07-11] MEDS: COZAAR 25 MG TUBE (20:41)
[2024-07-11] MEDS: XANAX 0.25 MG TUBE (20:43)
[2024-07-11] MEDS: MELATONIN 5 MG TUBE (21:02)
[2024-07-11] MEDS: FOLVITE 2 MG TUBE (21:02)
[2024-07-12] VITALS (13 sets, daily range): BP systolic 127–144; BP diastolic 77–94; PULSE 75; O2SAT 100; BMI 19.4
--- NOTE | 2024-07-12 01:43 | PTCARENOTE ---
Pt appearing to be in a pleasant mood after speaking to daughter on phone. Pt making it clear he does not want to be woken up during night. Education given on safety and compromise of silently coming in room to check on him, will try to cluster
care. Pt continues on 2L nc spo2 94-99% dependent on his position. Assessment care and vitals as charted.
[2024-07-12] MEDS: DUONEB 3 ML INH ×3 (07:39→15:27)
[2024-07-12] MEDS: SENSIPAR 120 MG TUBE (09:00)
--- NOTE | 2024-07-12 09:00 | W.PN.NEPH.PH ---
Today's Communication / Plan
-
Dialysis tomorrow orders provided
Patiently hemodynamically tolerates higher UF
Assessment/Plan
-
Impression:
ESRD MWF
Hypoxia/left lung atelectasis versus pneumonia
Large left pleural effusion s/p thoracentesis 06/21
CHF
Anemia
Hypertension hx
Hyponatremia
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
Hyperphosphatemia
PEG
Non-ST elevation [place]
History of stroke with subsequent left hemiparesis dysarthria and dysphagia
Tunneled right HD IJ catheter
Chronic impacted right proximal humerus fracture
hypercalcemia
Plan:
Sensipar 120mg daily also using 2 Ca bath re: hypercalcemia
HD Saturday , orders provided
Chest x-ray today with small left effusion, pulmonary to decide timing or need for Pleurx cath
Await placement
-
-
Date of Service: July 12, 2024
CC / HPI / ROS
-
Chief Complaint:
ESRD
History of Present Illness:
hemodynamically stable
Hemodialysis on Saturday schedule
Review of Systems:
No chest pain or shortness of breath
No fever
Labs
-
Labs:
WBC Cancelled 07/11/24 06:00
RBC Cancelled 07/11/24 06:00
Hgb Cancelled 07/11/24 06:00
Hct Cancelled 07/11/24 06:00
Plt Count Cancelled 07/11/24 06:00
Sodium Cancelled 07/11/24 06:00
Potassium Cancelled 07/11/24 06:00
Chloride Cancelled 07/11/24 06:00
Carbon Dioxide Cancelled 07/11/24 06:00
BUN Cancelled 07/11/24 06:00
Creatinine Cancelled 07/11/24 06:00
eGFR Cancelled 07/11/24 06:00
Glucose Cancelled 07/11/24 06:00
Calcium Cancelled 07/11/24 06:00
Phosphorus 2.5 mg/dl (2.5-4.5) 06/22/24 12:03
Ofk-T-Jtrzbbondbh Pept > 53407 pg/ml 06/20/24 18:13
Albumin 2.3 g/dl (3.5-5.0) L 06/25/24 04:13
Physical Exam
-
Vital Signs:
Vital Signs
Temp Pulse Resp BP Pulse Ox
97.5 F 75 20 139/94 100
07/12/24 03:11 07/12/24 07:41 07/12/24 07:41 07/12/24 06:00 07/12/24 07:41
Cardiovascular:: Regular rate and rhythm
Respiratory:: Bilateral: Coarse
Lung Excursion:: Normal
Abdomen:: Nontender and Soft
Bowel Sounds:: Normal
Extremity Edema:: None: Bilateral:
[2024-07-12] MEDS: WELLBUTRIN REGULAR RELEASE 150 MG TUBE ×2 (09:01→21:07)
[2024-07-12] MEDS: PREVACID 15 MG TUBE (09:01)
[2024-07-12] MEDS: SANTYL OINTMENT 1 APPLIC TOPICAL (09:02)
[2024-07-12] MEDS: LOW STRENGTH ASPIRIN 81 MG TUBE (09:02)
[2024-07-12] MEDS: MIRALAX TUBE (09:02)
[2024-07-12] MEDS: ROBITUSSIN 200 MG PO ×3 (09:02→21:07)
[2024-07-12] MEDS: HEPARIN 5000 UNITS SC ×2 (09:03→21:07)
--- NOTE | 2024-07-12 12:50 | W.PN.HOSP.TC ---
Today's Communication/Plan
-
Repeat chest x-ray stable
SNF dispo plan appropriate as less likely will require pleurex
Assessment / Plan
Assessment / Plan
1. Left mainstem bronchus obstruction, recurrent aspiration -patient have increased secretion and potential for recurrent bronchus obstruction and related complication. Despite maximal pulmonary toileting effort patient pulmonary status remains
precarious.
2. Recurrent pleural effusion -patient underwent right-sided thoracentesis of 1.1 L. And left-sided thoracentesis of 1.45 L followed by 1.75 L. A Pleurx catheter was planned although insurance approval did not come through. Instead of
therapeutic thoracentesis was done with drainage of 750 cc of pleural fluid from left side. Patient's dyspnea symptom has much more improved after this. Planning to repeat chest x-ray on the weekend. Pleurx catheter somewhat of a limitation for
finding of placement, if not needed patient may get periodic thoracentesis as needed. Favorable scenario would be where patient does not reaccumulate effusion although patient clearly establishing himself as a recurrent left sided pleural effusion
pattern. Repeat chest x-ray fortunately today did not show any significant reaccumulation.
3. Acute hypoxic respiratory failure, ventilator dependent respiratory failure, PEA/cardiac arrest -patient had episode of mucous plugging with respiratory arrest. Patient was bradycardic at that time and likely added to the problem. Patient
require ventilator support and was able to be extubated. Currently on oxygen through nasal cannula. Dyspnea has improved with x3 time left-sided thoracentesis. Remains at high risk of decompensation and further respiratory problems.
4. Hypercalcemia/parathyroid adenoma/secondary hyper-parathyroidism -patient has significant hypocalcemia and likely secondary to ESRD/secondary hyper-parathyroidism and parathyroid adenoma found on imaging. Parathyroid hormone close to 1000.
Patient has been maximized on Cinacalcet and also has been provided calcitonin/bisphosphonates. In light of refractory nature of hypercalcemia surgery has been consulted, patient is a candidate for minimally invasive parathyroidectomy once
pulmonary status stabilizes.
5. NSTEMI -patient was managed conservatively and has finished few days of heparin drip therapy. Echocardiogram showing ejection fraction of 50 to 55%.
6. Diastolic heart failure exacerbation -patient volume status being managed by hemodialysis, patient makes some urine.
Anticipated Discharge: Within 24 hours
Subjective/Interval History
-
Date of Service: July 12, 2024
No complaints overnight
Pulmonary status remains not perfect but stable at this point
Oxygen requirement has not changed
Objective Data
-
Vital Signs:
Vital Signs
Temp Pulse Resp BP Pulse Ox
97.5 F 71 20 139/94 100
07/12/24 03:11 07/12/24 11:12 07/12/24 11:12 07/12/24 06:00 07/12/24 11:12
I&O
07/11/24 07/12/24 07/13/24
06:59 06:59 06:59
Intake Total 1740 / 1740 900 / 900
Output Total 0 / 0 0 / 0
Balance 1740 / 1740 900 / 900
Review of Systems
-
Respiratory: Reports No Symptoms
Cardiac: Reports No Symptoms
Abdomen/GI: Reports No Symptoms
Physical Exam
-
General: Comfortable and Cachectic
HEENT: Oxygen (3L NC)
Respiratory: Clear to Auscultation
Cardiac: Regular Rhythm and S1/S2; Negative Murmur or Rub
GI: Soft, Nontender and Nondistended
Musculoskeletal: No Edema
Neuro: Awake, Alert, Oriented, No Motor Deficits and Nonfocal/Grossly Intact
Psych: Calm
[2024-07-12] MEDS: ROBITUSSIN PO (14:53)
--- NOTE | 2024-07-12 15:43 | W.PN.PUL3 ---
Today's Communication / Plan
-
Monitor for pleural fluid reaccumulation
Probable Pleurx catheter when pleural fluid reaccumulates
Hemodialysis
Deep suction and mobilize secretions as tolerated
Assessment
-
Patient is a 60-year-old gentleman with known history of carotid artery disease status post right CEA in the past, end-stage renal disease on hemodialysis, hypertension, hyperlipidemia, congestive heart failure with reduced ejection fraction of 40
to 45% as well as history of stroke in the past, who was brought from the long term facility for worsening shortness of breath. Patient reportedly has been feeling short of breath over the last couple of weeks which has been progressively
getting worse. Reported diagnosis of low enzymes patient has been on Tamiflu. In view of worsening respiratory status he was transferred to the emergency room for further workup. Imaging in the emergency room showing showed near complete collapse
of the left lung with large pleural effusion as well as moderate pleural effusion on the right side. Patient also was noted to have significantly elevated troponin along with sinus bradycardia. Patient was started on broad-spectrum antibiotics,
aspirin as well as heparin drip for suspected NSTEMI and was admitted to hospitalist service.
In view of large effusion, interventional radiology and pulmonary service were requested for further input. Patient had thoracentesis performed with gradual improvement. Patient subsequently had a cardiopulmonary arrest and required CPR on 06/23
and CODE STATUS was reversed from DNR to full code. Patient was intubated for 2 days and it was felt to be related to mucous plug obstructing left main bronchus. Patient was successfully extubated on 06/25/24.
Bilateral pleural effusions left > right status post thoracentesis x 4 since 06/21/2024
Status post intubation and mechanical ventilation-06/23/2024 through 06/25/2024
Cardiac arrest status post asystole-epi, CPR ROSC in 3 minutes
Sinus bradycardia - now normal heart rate
Aspiration risk
Lung atelectasis due to mucous plugging and pleural effusion
CHF with preserved EF
End-stage renal disease on hemodialysis
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
Plan
Respiratory status improved significantly after thoracentesis and hemodialysis 07/08/2024
Supplemental oxygen as needed-currently on 2-3 L - 98% saturation
Status post intubation 06/23/24 and extubated 06/25/2024
Aspiration precautions
Mucus clearing devices-he has tried vest therapy in the past without much success according to patient
Mucolytics
Duonebs
Bronchoscopy would be considered if cannot mobilize mucous plug after thoracentesis
Chest x-ray 07/09/2023-small right pleural effusion, improved aeration of the left lung with some left basilar consolidation
Follow CXR occasional (CXR today on 07/13 shows worsening perihilar opacification, more predominant on the left hemithorax than the right)
Interventional radiology-thoracentesis performed 07/08/2024 urgently due to significant shortness of breath and eventual definitive ASEPT catheter on the left side if insurance allows
Thoracentesis 07/08/24--750 mL of yellow pleural fluid
Follow chest x-ray and likely with Pleurx catheter
Cultures reviewed
Sputum was cultured on 06/23/20241871-[id number]-[id number] 7 days of antibiotics-suspected colonization rather than active pneumonia
Nephrology following-correspondence reviewed
Hemodialysis [facility]
Parathyroidectomy will likely be needed for persistent hypercalcemia-surgery evaluated-surgery once medically stable
DVT prophylaxis-on subcu heparin
Nutrition-on tube feeds
Bedside range of motion/physical therapy
Reviewed with nursing
Family meeting
Dr. Garcia met with patient's daughter as well as ex-. Goals of care discussions took place in the presence of palliative care nurse. Patient's family requesting medical team to discuss again with the patient regarding his CODE STATUS and
wishes in future as he had been DNR/DNI in the past but was temporarily intubated in the setting of mucous plug.
Data:
CXR 05/2024: 1. Near complete opacification of the left hemithorax which is likely secondary to a large left pleural effusion and airspace consolidation (compressive atelectasis or pneumonia).
2. Moderate ground-glass opacity in the infrahilar right lower lung which could be subsegmental atelectasis or pneumonia.
3. Right IJ hemodialysis catheter in place.
4. Chronic impacted fracture of the right humeral neck.
CT Chest 05/2024: 1. Complete endobronchial obstruction of the left mainstem bronchus containing layering secretions. SEVERE NEAR COMPLETE AIRSPACE CONSOLIDATION of the LEFT UPPER and LOWER LOBES (either atelectasis or pneumonia).
2. LARGE LEFT PLEURAL EFFUSION.
3. Moderate to large right pleural effusion.
4. Moderate to severe cardiomegaly.
5. Severe calcific atherosclerotic plaque in the coronary arteries.
6. Right IJ hemodialysis catheter in place.
7. Chronic impacted fracture of the right proximal humerus.
Total time spent today was 36 minutes for this encounter. Time includes reviewing laboratory test/imaging results, reviewing pertinent medical records, obtaining and reviewing medical history, performing an appropriate exam, ordering medications,
tests and procedures. Time also includes documentation of this encounter, coordinating patient care and communicating with other healthcare professionals. Total time does not include separately billed tests performed on this date of service.
Subjective Data
-
Date of Service:
Date of Service: July 12, 2024
Chief Complaint: Pulmonary Follow Up (Hypoxemic respiratory failure-bilateral pleural effusion) and Dyspnea Follow Up
Subjective:
Patient seen today at bedside (late note entry). Heart rate 73, BP 135 or 86 and saturating 97% on 2 L/min. He feels well, feels tired overall. Denies chest pain, fevers or chills.
Review of Systems
General: Other (Negative unless mentioned above)
Objective Data
Data Reviewed
Vital Signs / I&O / Oxygen:
Vital Signs
Temp Pulse Resp BP Pulse Ox
97.5 F 75 20 139/94 100
07/12/24 03:11 07/12/24 07:41 07/12/24 07:41 07/12/24 06:00 07/12/24 07:41
Intake and Output
07/11/24 07/12/24 07/13/24
06:59 06:59 06:59
Intake Total 1740 / 1740 900 / 900
Output Total 0 / 0 0 / 0
Balance 1740 / 1740 900 / 900
SaO2 [CPAP] 99
SaO2 [A/C] 99
SaO2 100
Nasal Cannula flow liters per 2
minute
Physical Exam
General: Respiratory Distress (Mild), Comfortable, Chills (negative) and Sweats (negative)
HEENT: Normocephalic, Anicteric and Moist Mucous Membranes
Cardiovascular: S1-S2 and Peripheral Edema (negative)
Respiratory: Wheeze (negative), Crackles (negative), Rhonchi (negative), Accessory Resp Muscle Use (n), Stridor (n) and Other (Diminished breath sounds on the left)
GI: Soft, Non Distended, Non Tender and Normal Bowel Sounds
Neurology: Awake, Alert and Tremors (negative)
Skin: Warm, Dry, Cyanosis (n) and Jaundice (negative)
Labs/Micro/Reports
Lab Data
07/11/24 06:00
07/11/24 06:00
Microbiology
07/08/24 15:21 Pleural Fluid Body Fluid Culture - Final
No Growth After 72 Hours
07/08/24 15:21 Pleural Fluid Gram Stain - Final
[2024-07-12] MEDS: CRESTOR 20 MG TUBE (17:06)
[2024-07-12] MEDS: DUONEB INH (19:34)
[2024-07-12] MEDS: MELATONIN 5 MG TUBE (21:07)
[2024-07-12] MEDS: FOLVITE 2 MG TUBE (21:08)
[2024-07-12] MEDS: COZAAR 25 MG TUBE (21:08)
[2024-07-12 23:56] LABS: Glucose - Point of Care 103 mg/dl (70-99)
[2024-07-13] VITALS (25 sets, daily range): BP systolic 91–139; BP diastolic 60–91
--- NOTE | 2024-07-13 04:38 | PTCARENOTE ---
pt aaox3, able to make needs known. Loose liquid bmx2. Remains on 3LNC, SaO2 98%. Lungs coarse with scattered rhonchi. Moist productive cough, pt able to self suction throughout shift. Nepro with carbsteady @50ml/hr with 25ml/hr flush going through
PEG tube in LUQ. Dressing changed on pt sacral wound. Calazime applied to penile wound. CHG wipes done this shift. VSS. Call pérez and belongings within reach. Care ongoing.
--- NOTE | 2024-07-13 06:12 | W.PN.UPDATE ---
Update Note
Progress Note Update
0600 precedex, phenobarb amd tranfer to icu orders entered accidently under wrong pt. Immediately corrected and d/c'd.
--- NOTE | 2024-07-13 07:05 | W.PN.HOSP.TC ---
Addendum entered and electronically signed by Isabella Marques MD 07/13/24 19:03:
I saw and evaluated the patient independently. I reviewed the resident�s note and agree with findings and plan as documented by Dr. Faria.
GENERAL: chronically ill appearing male cachectic
HEENT: NC/AT--O2 NC
HEART: regular rate and rhythm, +S1, +S2, tachy
LUNGS : clear to auscultation bilaterally--decreased BS left base
ABDOM: soft, nontender, nondistended, + bowel sounds
EXT: no cyanosis, clubbing, or edema
NEUROLOGIC: nonfocal
Left mainstem bronchus obstruction, recurrent aspiration -patient have increased secretion and potential for recurrent bronchus obstruction and related complication-- Despite maximal pulmonary toileting effort patient pulmonary status remains
precarious--aspiration risk
Recurrent pleural effusion -patient underwent right-sided thoracentesis of 1.1 L. And left-sided thoracentesis of 1.45 L followed by 1.75 L. A Pleurx catheter was planned although insurance approval did not come through. Hopefully, volume can be
controlled with dialysis
Acute hypoxic respiratory failure, ventilator dependent respiratory failure, s/p PEA/cardiac arrest -patient had episode of mucous plugging with respiratory arrest. Patient was bradycardic at that time and likely added to the problem. Patient
require ventilator support and was able to be extubated. Currently on oxygen through nasal cannula. Dyspnea has improved with x3 time left-sided thoracentesis. Remains at high risk of decompensation and further respiratory problems.
Hypercalcemia/parathyroid adenoma/secondary hyperparathyroidism -patient has significant hypocalcemia and likely secondary to ESRD/secondary hyperparathyroidism and parathyroid adenoma found on imaging. Parathyroid hormone close to 1000. Patient
has been maximized on Cinacalcet and also has been provided calcitonin/bisphosphonates. In light of refractory nature of hypercalcemia surgery has been consulted, patient is a candidate for minimally invasive parathyroidectomy once pulmonary status
stabilizes.
NSTEMI -patient was managed conservatively and has finished few days of heparin drip therapy. Echocardiogram showing ejection fraction of 50 to 55%.
Diastolic heart failure exacerbation -patient volume status being managed by hemodialysis, patient makes some urine.
Hx CVA w L hemiparesis, dysarthria, dysphagia-- cont tube feeding
ESRD on MWF HD--apprec renal
anemia of chronic disease- transfused 2 unit pRBCs
Severe calcific atherosclerotic plaque in the coronary arteries on CT Chest
Right chronically impacted humeral neck fracture -imaging finding on CT chest, needs to be verified with previous records
Hyponatremia
Essential Hypertension
Hyperlipidemia
Carotid artery disease s/p R CEA
BPH
Depression
code status--DNI--wants chest compressions
Original Note:
Today's Communication/Plan
-
- code status updated to limited - DNI only
- dc planning
Assessment / Plan
Assessment / Plan
L mainstem bronchus obstruction secondary to secretions
B/l pleural effusions likely secondary to underlying CHF and ESRD
- aspiration risk
- hx CVA/peg tube on tube feeding
- CPT
- resp cx: Pseudomonas, completed 7 days abx
- cont flutter valve
- L thoracentesis #1: 1450 cc straw-colored pleural fluid
- R thoracentesis #1: 1100 cc of clear yellow pleural fluid.
- L thoracentesis #2: 1750 cc of serosanguineous pleural fluid.
- L thoracentesis #3: 750 cc of clear yellow pleural fluid.
Cardiac arrest secondary to asystole
Ventilator dependent respiratory failure - resolved
- required 1 epi and 1 round CPR, ROSC in 3min
- intubated during code
- Post intubation CXR reviewed persistent homogeneous retrocardiac left lower lobe opacity.
NSTEMI
CHF
- trop max 10.7
- was on a heparin drip
- Echo: LVEF 50-55%
- ASA, statin
- hold BB due to recent severe bradycardia
Acute on chronic HFpEF
- proBNP elevated
- echo: LVEF 50-55%
- volume overload managed by HD
Sinus bradycardia w 1st degree AV block - improving
- 06/22: HR 30s, encephalopathic. Dopamine started
- hypoxia, hyperglycemia, hypercalcemia may play a role
Hypercalcemia secondary to parathyroid adenoma and hyperparathyroidism secondary to renal dysfunction
- vit D deficiency
- on cinacalcit
- CT CAP: enlarged parathyroid
- thyroid us: parathyroid adenoma
- pamidronate x1
- surgery consulted - agreeable to perform when medically stable
Hx CVA w L hemiparesis, dysarthria, dysphagia
- cont tube feeding
ESRD on MWF HD
anemia of chronic disease
- HD due 07/08
- transfused 2 unit pRBCs
Severe calcific atherosclerotic plaque in the coronary arteries on CT Chest
Right chronically impacted humeral neck fracture -imaging finding on CT chest, needs to be verified with previous records
Hyponatremia
Recent Flu
Benign Hypertension
Hyperlipidemia
Carotid artery disease s/p R CEA
BPH
Depression
Diet: tube feeding
DVT Prophylaxis: Heparin SUBQ
Code Status: limited - DNI only
Anticipated Discharge: Within 24 hours
Subjective/Interval History
-
Date of Service: July 13, 2024
Pt had a BM overnight. HD today. Pt wishes for a limited DNR - he wishes for chest compressions but is DNI. Pt agreeable to pleurx catheter
Objective Data
-
Labs:
Laboratory Results
07/13/24
07:00
Hgb Pending
Hct Pending
Sodium Pending
Potassium Pending
Chloride Pending
Carbon Dioxide Pending
Vital Signs:
Vital Signs
Temp Pulse Resp BP Pulse Ox
97.9 F 73 24 139/91 99
07/12/24 23:13 07/13/24 04:00 07/13/24 04:00 07/13/24 04:00 07/13/24 04:00
I&O
07/12/24 07/13/24 07/14/24
06:59 06:59 06:59
Intake Total 900 / 900 900 / 900
Output Total 0 / 0
Balance 900 / 900 900 / 900
Review of Systems
-
History Source: Patient
Constitutional: Reports No Symptoms
Respiratory: Reports No Symptoms
Cardiac: Reports No Symptoms
Abdomen/GI: Reports No Symptoms
Musculoskeletal: Reports No Symptoms
Skin: Reports No Symptoms
Neuro: Reports No Symptoms
Physical Exam
-
General: Comfortable and Cachectic
Respiratory: Clear to Auscultation
Cardiac: Regular Rhythm and S1/S2
GI: Soft, Nontender, Nondistended and Normal Bowel Sounds
Musculoskeletal: No Clubbing, No Cyanosis and No Edema
Neuro: Nonfocal/Grossly Intact and No Sensory Deficits
Psych: Calm
[2024-07-13] MEDS: DUONEB 3 ML INH ×4 (07:27→19:19)
[2024-07-13] MEDS: MIRALAX TUBE (08:04)
[2024-07-13 08:21] LABS: Hematocrit 27.9 % (39.0-52.0); Hemoglobin 9.1 g/dL (13.0-18.0)
[2024-07-13 08:36] LABS: Carbon Dioxide 30 mmol/L (22-30); Chloride 94 mmol/L (98-107); Sodium 133 mmol/L (135-145)
[2024-07-13] MEDS: RETACRIT 10000 UNITS IV (08:40)
--- NOTE | 2024-07-13 09:11 | W.PN.PUL3 ---
Today's Communication / Plan
-
Remains on 2L, but likely could be weaned to off
No further plans for thora, CXR this AM with slight recurrence but not significant to tap
Volume removal preferred via HD if able
Off abx, observe off
PT/OT, OOB encouraged
Can transfer out of IMU
Discharge planning otherwise per team
Assessment
-
Patient is a 60-year-old gentleman with known history of carotid artery disease status post right CEA in the past, end-stage renal disease on hemodialysis, hypertension, hyperlipidemia, HFrEF 40-45%, CVA, who was brought from the snf
facility for worsening shortness of breath. Patient reportedly has been feeling short of breath over the last couple of weeks which has been progressively getting worse. Reported diagnosis of Flu-has been on Tamiflu. In view of worsening
respiratory status he was transferred to the emergency room for further workup. Imaging in the emergency room showing showed near complete collapse of the left lung with large pleural effusion as well as moderate pleural effusion on the right side.
Patient also was noted to have significantly elevated troponin along with sinus bradycardia. Patient was started on broad-spectrum antibiotics, aspirin as well as heparin drip for suspected NSTEMI and was admitted to hospitalist service. In view
of large effusion, interventional radiology and pulmonary service were requested for further input. Patient had thoracentesis performed with gradual improvement. Patient subsequently had a cardiopulmonary arrest and required CPR on 06/23 and CODE
STATUS was reversed from DNR to full code. Patient was intubated for 2 days and it was felt to be related to mucous plug obstructing left main bronchus. Patient was successfully extubated on 06/25/24.
Bilateral pleural effusions left > right status post thoracentesis x 4 since 06/21/2024
Status post intubation and mechanical ventilation-06/23/2024 through 06/25/2024
Cardiac arrest status post asystole-epi, CPR ROSC in 3 minutes
Sinus bradycardia - now normal heart rate
Lung atelectasis due to mucous plugging and pleural effusion
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
CHF with preserved EF
End-stage renal disease on hemodialysis
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
PEG placement
GERD
HTN
HLD
Hypothyroidism
Plan
Respiratory status improved significantly after thoracentesis and hemodialysis 07/08/2024
Now on 2L NC satting 100%, can likely wean to off
Status post intubation 06/23/24 and extubated 06/25/2024
Aspiration precautions
Mucus clearing devices-he has tried vest therapy in the past without much success according to patient
Duonebs PRN
Chest x-ray 07/09/2023-small right pleural effusion, improved aeration of the left lung with some left basilar consolidation
Follow CXR occasional
CXR today on 07/13 shows slight return off effusion but not significant for further therapeutic thora
Interventional radiology-thoracentesis performed 07/08/2024 urgently due to significant shortness of breath -- transudative pleural effusion
Thoracentesis L 07/08/24--750 mL of yellow pleural fluid- Tot P 3.2 - [facility] 87, culture neg
s/p L thora 06/29/24 1750: Tot P 2.9 - [facility] 108, culture/cyto neg
s/p R thora 06/22/24 1100, culture/cyto neg
s/p L thora 06/21/24 1450, culture/cyto neg
Follow chest x-ray PRN
Can hold off further taps if patient has mild fluid and no symptoms
Prefer to remove fluid via HD if able
Cultures reviewed
Sputum was cultured on 06/23/20248301-[id number] 7 days of antibiotics-suspected colonization rather than active pneumonia
Monitor off abx if no further fever/WBC count
Nephrology following-correspondence reviewed
Hemodialysis [facility]cj[facility]-Aepc[facility]
Parathyroidectomy will likely be needed for persistent hypercalcemia-surgery evaluated-surgery once medically stable
HD planning continued with volume removal
Follow daily weights
DVT prophylaxis-on subcu heparin
Nutrition-on tube feeds
Bedside range of motion/physical therapy
PT/OT OOB later today post HD
Discharge planning per team
Reviewed with nursing
Family meeting
Dr. Garcia met with patient's daughter as well as ex-. Goals of care discussions took place in the presence of palliative care nurse. Patient's family requesting medical team to discuss again with the patient regarding his CODE STATUS and
wishes in future as he had been DNR/DNI in the past but was temporarily intubated in the setting of mucous plug.
Data:
CXR 05/2024: 1. Near complete opacification of the left hemithorax which is likely secondary to a large left pleural effusion and airspace consolidation (compressive atelectasis or pneumonia).
2. Moderate ground-glass opacity in the infrahilar right lower lung which could be subsegmental atelectasis or pneumonia.
3. Right IJ hemodialysis catheter in place.
4. Chronic impacted fracture of the right humeral neck.
CT Chest 05/2024: 1. Complete endobronchial obstruction of the left mainstem bronchus containing layering secretions. SEVERE NEAR COMPLETE AIRSPACE CONSOLIDATION of the LEFT UPPER and LOWER LOBES (either atelectasis or pneumonia).
2. LARGE LEFT PLEURAL EFFUSION.
3. Moderate to large right pleural effusion.
4. Moderate to severe cardiomegaly.
5. Severe calcific atherosclerotic plaque in the coronary arteries.
6. Right IJ hemodialysis catheter in place.
7. Chronic impacted fracture of the right proximal humerus.
Total time spent today was 50 minutes for this encounter. Time includes reviewing laboratory test/imaging results, reviewing pertinent medical records, obtaining and reviewing medical history, performing an appropriate exam, ordering medications,
tests and procedures. Time also includes documentation of this encounter, coordinating patient care and communicating with other healthcare professionals. Total time does not include separately billed tests performed on this date of service.
Subjective Data
-
Date of Service:
Date of Service: July 13, 2024
Chief Complaint: Pulmonary Follow Up (Hypoxemic respiratory failure-bilateral pleural effusion) and Dyspnea Follow Up
Subjective:
Remains on 2L NC, 100%
HD ongoing at this time
No new complaints, feels no current SOB
Objective Data
Data Reviewed
Vital Signs / I&O / Oxygen:
Vital Signs
Temp Pulse Resp BP Pulse Ox
97.9 F 74 20 139/91 100
07/12/24 23:13 07/13/24 07:30 07/13/24 07:30 07/13/24 04:00 07/13/24 07:30
Intake and Output
07/12/24 07/13/24 07/14/24
06:59 06:59 06:59
Intake Total 900 / 900 900 / 900
Output Total 0 / 0
Balance 900 / 900 900 / 900
SaO2 [CPAP] 99
SaO2 [A/C] 99
SaO2 100
Nasal Cannula flow liters per 2
minute
Physical Exam
General: Respiratory Distress (Mild), Comfortable, Chills (negative), Sweats (negative) and Good Appetite
HEENT: Normocephalic, Anicteric, Moist Mucous Membranes and Other (poor dentition/oral hygiene)
Cardiovascular: S1-S2 and Peripheral Edema (negative)
Respiratory: Clear, Wheeze (negative), Crackles (negative), Rhonchi (negative), Accessory Resp Muscle Use (n), Stridor (n) and Other (Diminished breath sounds on the left)
GI: Soft, Non Distended, Non Tender and Normal Bowel Sounds
Neurology: Awake, Alert, Oriented, No Motor Deficits and Tremors (negative)
Skin: Warm, Dry, Cyanosis (n) and Jaundice (negative)
Labs/Micro/Reports
Lab Data
07/13/24 08:05
07/13/24 08:05
Microbiology
07/08/24 15:21 Pleural Fluid Body Fluid Culture - Final
No Growth After 72 Hours
07/08/24 15:21 Pleural Fluid Gram Stain - Final
[2024-07-13] MEDS: SANTYL OINTMENT 1 APPLIC TOPICAL (09:17)
[2024-07-13] MEDS: HEPARIN 5000 UNITS SC ×2 (09:17→20:49)
[2024-07-13] MEDS: SENSIPAR 120 MG TUBE (09:17)
[2024-07-13] MEDS: ROBITUSSIN 200 MG PO ×4 (09:18→20:49)
[2024-07-13] MEDS: LOW STRENGTH ASPIRIN 81 MG TUBE (09:18)
[2024-07-13] MEDS: PREVACID 15 MG TUBE (09:18)
[2024-07-13] MEDS: WELLBUTRIN REGULAR RELEASE 150 MG TUBE ×2 (09:18→20:49)
[2024-07-13] MEDS: MANNITOL 25% 12.5 GRAMS IV (10:07)
--- NOTE | 2024-07-13 10:27 | W.PN.NEPH.HD ---
Assessment
-
pt seen during HD
vitals stable , SBP at 90-lowered UF
UF as tolerates , O2 requirement seem to improve
high dose PAPITO
CVC functions fine
Progress Note - Hemodialysis
-
Date of Service: July 13, 2024
Duration: 30 minutes and 3 hours
Potassium Bath: 2
Calcium Bath: 2.5
Opti-Dialyzer: 160
Ultrafiltration: Other (2-2.5kg)
Blood Flow: 400
Dialysate Flow: 600
Heparin: no
EPO: [id number]
[2024-07-13 11:02] LABS: Glucose - Point of Care 90 mg/dl (70-99)
[2024-07-13] MEDS: HEPARIN 3600 UNITS INTRACATH (11:19)
--- NOTE | 2024-07-13 14:00 | CM ---
Patient seen at bedside. Patient daughter spoke with CM, she asked for direct number, no number given other than phone number on back of card. Patient daughter stated she would call to start family auth. CM spoke with [facility] and updated clinicals
sent to them for further review. CM reviewed process and per daughter if Auth was not overturned she would like for CM to continue SNF referrals. CM will continue to follow for discharge planning needs.
Plan; LTACH pending auth vs SNF
[2024-07-13] MEDS: CRESTOR 20 MG TUBE (17:44)
[2024-07-13 18:00] LABS: Glucose - Point of Care 84 mg/dl (70-99)
[2024-07-13] MEDS: MELATONIN 5 MG TUBE (20:49)
[2024-07-13] MEDS: FOLVITE 2 MG TUBE (20:49)
--- NOTE | 2024-07-13 22:55 | PTCARENOTE ---
report called to 4 Sami RN and transferred to Rm [id number].
--- NOTE | 2024-07-13 23:02 | PTCARENOTE ---
rec'd pt from IMU. transferred over to the bed. Tube feed infusing as ordered. Pt denies pain. Oral suction set up per pt's request. Call pérez in reach on right side as he has left side residual weakness. oriented to unit.
[2024-07-13 23:49] LABS: Glucose - Point of Care 109 mg/dl (70-99)
[2024-07-14] VITALS (7 sets, daily range): BP systolic 106–148; BP diastolic 66–97; BMI 19.2
[2024-07-14 07:11] LABS: Hematocrit 29.2 % (39.0-52.0); Hemoglobin 9.7 g/dL (13.0-18.0); Mean Corp Hgb Conc. 33.2 g/dL (33.0-37.0); Mean Corpuscular Hgb 29.8 pg (27.0-31.0); Mean Corpuscular Volume 89.8 fL (80.0-94.0); Mean Platelet Volume 8.4 fL (7.4-10.4); Platelet Count 352 10^3/uL (130-400); Red Blood Cell Count 3.25 10^6/uL (4.70-6.10); White Blood Cell Count 10.1 10^3/uL (4.8-10.8)
[2024-07-14 07:48] LABS: Blood Urea Nitrogen 48 mg/dl (9-20); Calcium 10.3 mg/dl (8.4-10.2); Carbon Dioxide 30 mmol/L (22-30); Chloride 97 mmol/L (98-107); Estimated Creatinine Clearance 20 ml/min; Glucose 99 mg/dl (70-99); Magnesium 2.5 mg/dl (1.6-2.3); Potassium 4.3 mmol/L (3.5-5.1); Sodium 136 mmol/L (135-145); eGFR 21.09
[2024-07-14] MEDS: DUONEB 3 ML INH ×4 (08:00→19:15)
--- NOTE | 2024-07-14 08:36 | W.PN.HOSP.TC ---
Addendum entered and electronically signed by Isabella Marques MD 07/14/24 17:14:
I saw and evaluated the patient independently. I reviewed the resident�s note and agree with findings and plan as documented by Dr. Faria.
GENERAL: chronically ill appearing male cachectic
HEENT: NC/AT--O2 NC off
HEART: regular rate and rhythm, +S1, +S2, tachy
LUNGS : clear to auscultation bilaterally--decreased BS left base
ABDOM: soft, nontender, nondistended, + bowel sounds
EXT: no cyanosis, clubbing, or edema
NEUROLOGIC: nonfocal
Left mainstem bronchus obstruction, recurrent aspiration -patient have increased secretion and potential for recurrent bronchus obstruction and related complication-- pulmonary toileting--aspiration risk
Recurrent pleural effusion -patient underwent right-sided thoracentesis of 1.1 L. And left-sided thoracentesis of 1.45 L followed by 1.75 L and 750ml. A Pleurx catheter was planned although insurance approval did not come through. Hopefully,
volume can be controlled with dialysis --will check CXR in AM
Acute hypoxic respiratory failure, ventilator dependent respiratory failure, s/p PEA/cardiac arrest -patient had episode of mucous plugging with respiratory arrest. Patient was bradycardic at that time and likely added to the problem. Patient
require ventilator support and was able to be extubated--off O2-- Dyspnea has improved with x3 time left-sided thoracentesis. Remains at high risk of decompensation and further respiratory problems.
Hypercalcemia/parathyroid adenoma/secondary hyperparathyroidism -patient has significant hypocalcemia and likely secondary to ESRD/secondary hyperparathyroidism and parathyroid adenoma found on imaging. Parathyroid hormone close to 1000. Patient
has been maximized on Cinacalcet and also has been provided calcitonin/bisphosphonates. In light of refractory nature of hypercalcemia surgery has been consulted, patient is a candidate for minimally invasive parathyroidectomy once pulmonary status
stabilizes.
NSTEMI -patient was managed conservatively and has finished few days of heparin drip therapy. Echocardiogram showing ejection fraction of 50 to 55%.
Diastolic heart failure exacerbation -patient volume status being managed by hemodialysis, patient makes some urine.
Hx CVA w L hemiparesis, dysarthria, dysphagia-- cont tube feeding
ESRD on MWF HD--apprec renal
anemia of chronic disease- transfused 2 unit pRBCs
Severe calcific atherosclerotic plaque in the coronary arteries on CT Chest
Right chronically impacted humeral neck fracture -imaging finding on CT chest, needs to be verified with previous records
Hyponatremia
Essential Hypertension
Hyperlipidemia
Carotid artery disease s/p R CEA
BPH
Depression
code status--DNI--wants chest compressions
disposition planning
Original Note:
Today's Communication/Plan
-
- PMR consult
- CXR tw
Assessment / Plan
Assessment / Plan
L mainstem bronchus obstruction secondary to secretions
B/l pleural effusions likely secondary to underlying CHF and ESRD
- aspiration risk
- hx CVA/peg tube on tube feeding
- CPT
- resp cx: Pseudomonas, completed 7 days abx
- cont flutter valve
- L thoracentesis #1: 1450 cc straw-colored pleural fluid
- R thoracentesis #1: 1100 cc of clear yellow pleural fluid.
- L thoracentesis #2: 1750 cc of serosanguineous pleural fluid.
- L thoracentesis #3: 750 cc of clear yellow pleural fluid.
- CXR tw
Cardiac arrest secondary to asystole
Ventilator dependent respiratory failure - resolved
- required 1 epi and 1 round CPR, ROSC in 3min
- intubated during code
- Post intubation CXR reviewed persistent homogeneous retrocardiac left lower lobe opacity.
NSTEMI
CHF
- trop max 10.7
- was on a heparin drip
- Echo: LVEF 50-55%
- ASA, statin
- hold BB due to recent severe bradycardia
Acute on chronic HFpEF
- proBNP elevated
- echo: LVEF 50-55%
- volume overload managed by HD
Sinus bradycardia w 1st degree AV block - improving
- 06/22: HR 30s, encephalopathic. Dopamine started
- hypoxia, hyperglycemia, hypercalcemia may play a role
Hypercalcemia secondary to parathyroid adenoma and hyperparathyroidism secondary to renal dysfunction
- vit D deficiency
- on cinacalcit
- CT CAP: enlarged parathyroid
- thyroid us: parathyroid adenoma
- pamidronate x1
- surgery consulted - agreeable to perform when medically stable
Hx CVA w L hemiparesis, dysarthria, dysphagia
- cont tube feeding
- PT/OT
- PMR consult
ESRD on MWF HD
anemia of chronic disease
- HD due 07/08
- transfused 2 unit pRBCs
Severe calcific atherosclerotic plaque in the coronary arteries on CT Chest
Right chronically impacted humeral neck fracture -imaging finding on CT chest, needs to be verified with previous records
Hyponatremia
Recent Flu
Benign Hypertension
Hyperlipidemia
Carotid artery disease s/p R CEA
BPH
Depression
Diet: tube feeding
DVT Prophylaxis: Heparin SUBQ
Code Status: limited - DNI only
Anticipated Discharge: 24 - 48 hours
Subjective/Interval History
-
Date of Service: July 14, 2024
Transferred out of IMU. No further acute overnight events. Dyspneic today.
Objective Data
-
Labs:
Laboratory Results
07/14/24
06:26
WBC 10.1
Hgb 9.7 L
Hct 29.2 L
Plt Count 352
Sodium 136
Potassium 4.3
Chloride 97 L
Carbon Dioxide 30
BUN 48 H
Creatinine 3.1 H
Glucose 99
Calcium 10.3 H
Vital Signs:
Vital Signs
Temp Pulse Resp BP Pulse Ox
98.1 F 88 17 148/91 92
07/14/24 07:05 07/14/24 07:05 07/14/24 07:05 07/14/24 07:05 07/14/24 07:05
I&O
07/13/24 07/14/24 07/15/24
06:59 06:59 06:59
Intake Total 900 / 900 1774
Output Total 0 / 0
Balance 900 / 900 1774
Review of Systems
-
History Source: Patient
Constitutional: Reports No Symptoms
Respiratory: Reports Trouble Breathing
Cardiac: Reports No Symptoms
Abdomen/GI: Reports No Symptoms
Neuro: Reports No Symptoms
Physical Exam
-
General: Well Developed and Well Nourished
HEENT: Normocephalic and Atraumatic
Respiratory: Clear to Auscultation
Cardiac: Regular Rhythm and S1/S2
GI: Soft, Nontender, Nondistended and Normal Bowel Sounds
Musculoskeletal: No Clubbing, No Cyanosis and No Edema
Skin: Warm and Dry
Neuro: Awake and Alert
Psych: Calm
[2024-07-14] MEDS: HEPARIN 5000 UNITS SC ×2 (08:41→19:53)
[2024-07-14] MEDS: LOW STRENGTH ASPIRIN 81 MG TUBE (08:42)
[2024-07-14] MEDS: ROBITUSSIN 200 MG PO ×3 (08:42→18:01)
[2024-07-14] MEDS: PREVACID 15 MG TUBE (08:42)
[2024-07-14] MEDS: MIRALAX 17 GRAMS TUBE (08:42)
[2024-07-14] MEDS: SANTYL OINTMENT 1 APPLIC TOPICAL (08:42)
[2024-07-14] MEDS: WELLBUTRIN REGULAR RELEASE 150 MG TUBE ×2 (08:44→19:54)
[2024-07-14] MEDS: SENSIPAR 120 MG TUBE (08:48)
[2024-07-14] MEDS: XANAX 0.25 MG TUBE ×2 (08:55→20:06)
--- NOTE | 2024-07-14 09:40 | W.PN.PUL3 ---
Addendum entered and electronically signed by Oliva Parker DO 07/15/24 11:53:
Patient is able to undergo parathyroid procedure from our perspective
No contraindications
Original Note:
Today's Communication / Plan
-
Now weaned to RA and stable sats
Obtain repeat chest imaging PRN for SOB
Prefer continued HD for volume removal, follow daily weights
PT/OT, OOB encouraged--recommend skilled rehab
Discharge planning otherwise per team
No further recs from our perspective, we will sign off at this time-pls call with questions
Assessment
-
Patient is a 60-year-old gentleman with known history of carotid artery disease status post right CEA in the past, end-stage renal disease on hemodialysis, hypertension, hyperlipidemia, HFrEF 40-45%, CVA, who was brought from the halfway
facility for worsening shortness of breath. Patient reportedly has been feeling short of breath over the last couple of weeks which has been progressively getting worse. Reported diagnosis of Flu-has been on Tamiflu. In view of worsening
respiratory status he was transferred to the emergency room for further workup. Imaging in the emergency room showing showed near complete collapse of the left lung with large pleural effusion as well as moderate pleural effusion on the right side.
Patient also was noted to have significantly elevated troponin along with sinus bradycardia. Patient was started on broad-spectrum antibiotics, aspirin as well as heparin drip for suspected NSTEMI and was admitted to hospitalist service. In view
of large effusion, interventional radiology and pulmonary service were requested for further input. Patient had thoracentesis performed with gradual improvement. Patient subsequently had a cardiopulmonary arrest and required CPR on 06/23 and CODE
STATUS was reversed from DNR to full code. Patient was intubated for 2 days and it was felt to be related to mucous plug obstructing left main bronchus. Patient was successfully extubated on 06/25/24.
Bilateral pleural effusions left > right status post thoracentesis x 4 since 06/21/2024
Status post intubation and mechanical ventilation-06/23/2024 through 06/25/2024
Cardiac arrest status post asystole-epi, CPR ROSC in 3 minutes
Sinus bradycardia - now normal heart rate
Lung atelectasis due to mucous plugging and pleural effusion
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
CHF with preserved EF
End-stage renal disease on hemodialysis
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
PEG placement
GERD
HTN
HLD
Hypothyroidism
Plan
Respiratory status improved significantly after thoracentesis and hemodialysis 07/08/2024
Now on RA, stable
Status post intubation 06/23/24 and extubated 06/25/2024
Aspiration precautions
Mucus clearing devices-he has tried vest therapy in the past without much success according to patient
Duonebs PRN
Chest x-ray 07/09/2023-small right pleural effusion, improved aeration of the left lung with some left basilar consolidation
Follow CXR occasional
CXR today on 07/13 shows slight return off effusion but not significant for further therapeutic thora
Interventional radiology-thoracentesis performed 07/08/2024 urgently due to significant shortness of breath -- transudative pleural effusion
Thoracentesis L 07/08/24--750 mL of yellow pleural fluid- Tot P 3.2 - [facility] 87, culture neg
s/p L thora 06/29/24 1750: Tot P 2.9 - [facility] 108, culture/cyto neg
s/p R thora 06/22/24 1100, culture/cyto neg
s/p L thora 06/21/24 1450, culture/cyto neg
Follow chest x-ray PRN
Can hold off further taps if patient has mild fluid and no symptoms
Prefer to remove fluid via HD if able
Cultures reviewed
Sputum was cultured on 06/23/20241278-[id number] 7 days of antibiotics-suspected colonization rather than active pneumonia
Monitor off abx if no further fever/WBC count
Nephrology following-correspondence reviewed
Hemodialysis [id number]-Eldkkixjb-Trstlc
Parathyroidectomy will likely be needed for persistent hypercalcemia-surgery evaluated-surgery once medically stable
HD planning continued with volume removal
Follow daily weights
DVT prophylaxis-on subcu heparin
Nutrition-on tube feeds
Bedside range of motion/physical therapy
PT/OT OOB later today post HD
Discharge planning per team
Reviewed with nursing
Family meeting
Dr. Garcia met with patient's daughter as well as ex-. Goals of care discussions took place in the presence of palliative care nurse. Patient's family requesting medical team to discuss again with the patient regarding his CODE STATUS and
wishes in future as he had been DNR/DNI in the past but was temporarily intubated in the setting of mucous plug.
Data:
CXR 05/2024: 1. Near complete opacification of the left hemithorax which is likely secondary to a large left pleural effusion and airspace consolidation (compressive atelectasis or pneumonia).
2. Moderate ground-glass opacity in the infrahilar right lower lung which could be subsegmental atelectasis or pneumonia.
3. Right IJ hemodialysis catheter in place.
4. Chronic impacted fracture of the right humeral neck.
CT Chest 05/2024: 1. Complete endobronchial obstruction of the left mainstem bronchus containing layering secretions. SEVERE NEAR COMPLETE AIRSPACE CONSOLIDATION of the LEFT UPPER and LOWER LOBES (either atelectasis or pneumonia).
2. LARGE LEFT PLEURAL EFFUSION.
3. Moderate to large right pleural effusion.
4. Moderate to severe cardiomegaly.
5. Severe calcific atherosclerotic plaque in the coronary arteries.
6. Right IJ hemodialysis catheter in place.
7. Chronic impacted fracture of the right proximal humerus.
Total time spent today was 45 minutes for this encounter. Time includes reviewing laboratory test/imaging results, reviewing pertinent medical records, obtaining and reviewing medical history, performing an appropriate exam, ordering medications,
tests and procedures. Time also includes documentation of this encounter, coordinating patient care and communicating with other healthcare professionals. Total time does not include separately billed tests performed on this date of service.
Subjective Data
-
Date of Service:
Date of Service: July 14, 2024
Chief Complaint: Pulmonary Follow Up (Hypoxemic respiratory failure-bilateral pleural effusion) and Dyspnea Follow Up
Subjective:
No active complaints, remains stable on RA
No new issues
Objective Data
Data Reviewed
Vital Signs / I&O / Oxygen:
Vital Signs
Temp Pulse Resp BP Pulse Ox
98.1 F 88 17 148/91 92
07/14/24 07:05 07/14/24 07:05 07/14/24 07:05 07/14/24 07:05 07/14/24 07:05
Intake and Output
07/13/24 07/14/24 07/15/24
06:59 06:59 06:59
Intake Total 900 / 900 1775 / 1775
Output Total 0 / 0
Balance 900 / 900 1775 / 1775
SaO2 [CPAP] 99
SaO2 [A/C] 99
SaO2 92
Nasal Cannula flow liters per 2
minute
Physical Exam
General: Respiratory Distress (Mild), Comfortable, Chills (negative), Sweats (negative) and Good Appetite
HEENT: Normocephalic, Anicteric, Moist Mucous Membranes and Other (poor dentition/oral hygiene)
Cardiovascular: S1-S2 and Peripheral Edema (negative)
Respiratory: Clear, Wheeze (negative), Crackles (negative), Rhonchi (negative), Accessory Resp Muscle Use (n), Stridor (n) and Other (Diminished breath sounds on the left)
GI: Soft, Non Distended, Non Tender and Normal Bowel Sounds
Neurology: Awake, Alert, Oriented, No Motor Deficits and Tremors (negative)
Skin: Warm, Dry, Cyanosis (n) and Jaundice (negative)
Labs/Micro/Reports
Lab Data
07/14/24 06:26
07/14/24 06:26
Microbiology
06/29/24 08:24 Pleural Fluid Fungal Culture - Preliminary
Culture in progress.
Positive cultures are reported as soon as detected.
Final report to follow in four to five weeks.
07/08/24 15:21 Pleural Fluid Body Fluid Culture - Final
No Growth After 72 Hours
07/08/24 15:21 Pleural Fluid Gram Stain - Final
--- NOTE | 2024-07-14 12:02 | CM ---
Updated clinicals faxed to Meryl at [facility], fax # [phone]. (Confirmation receipt received)
--- NOTE | 2024-07-14 12:19 | W.PN.NEPH.PH ---
Today's Communication / Plan
-
HD tomorrow
Assessment/Plan
-
Impression:
ESRD MWF
Hypoxia/left lung atelectasis versus pneumonia
Large left pleural effusion s/p thoracentesis 06/21
CHF
Anemia
Hypertension hx
Hyponatremia
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
Hyperphosphatemia
PEG
Non-ST elevation ID
History of stroke with subsequent left hemiparesis dysarthria and dysphagia
Tunneled right HD IJ catheter
Chronic impacted right proximal humerus fracture
hypercalcemia
Plan:
Sensipar 120mg daily also using 2 Ca bath re: hypercalcemia
HD tomorrow
he is off O2 and no plan of intervention per pulm
cont TF, wts relatively stable
Await placement
-
-
Date of Service: July 14, 2024
CC / HPI / ROS
-
Chief Complaint:
ESRD
History of Present Illness:
hemodynamically stable
Hemodialysis on Saturday schedule
hb 9.7 stable
Review of Systems:
No chest pain or shortness of breath
No fever
Labs
-
Labs:
WBC 10.1 10^3/uL (4.8-10.8) 07/14/24 06:26
RBC 3.25 10^6/uL (4.70-6.10) L 07/14/24 06:26
Hgb 9.7 g/dL (13.0-18.0) L 07/14/24 06:26
Hct 29.2 % (39.0-52.0) L 07/14/24 06:26
Plt Count 352 10^3/uL (130-400) 07/14/24 06:26
Sodium 136 mmol/L (135-145) 07/14/24 06:26
Potassium 4.3 mmol/L (3.5-5.1) 07/14/24 06:26
Chloride 97 mmol/L (98-107) L 07/14/24 06:26
Carbon Dioxide 30 mmol/L (22-30) 07/14/24 06:26
BUN 48 mg/dl (9-20) H 07/14/24 06:26
Creatinine 3.1 mg/dL (0.7-1.3) H 07/14/24 06:26
eGFR 21.09 07/14/24 06:26
Glucose 99 mg/dl (70-99) 07/14/24 06:26
Calcium 10.3 mg/dl (8.4-10.2) H 07/14/24 06:26
Phosphorus 2.5 mg/dl (2.5-4.5) 06/22/24 12:03
Tjj-F-Oqksgsbhkvf Pept > 30965 pg/ml 06/20/24 18:13
Albumin 2.3 g/dl (3.5-5.0) L 06/25/24 04:13
Physical Exam
-
Vital Signs:
Vital Signs
Temp Pulse Resp BP Pulse Ox
97.7 F 80 18 147/84 95
07/14/24 11:05 07/14/24 11:25 07/14/24 11:25 07/14/24 11:05 07/14/24 11:25
Cardiovascular:: Regular rate and rhythm
Respiratory:: Bilateral: CTA (decreased)
Lung Excursion:: Normal
Abdomen:: Nontender and Soft
Extremity Edema:: None: Bilateral:
Bender Catheter: No
[2024-07-14 12:26] LABS: Glucose - Point of Care 119 mg/dl (70-99)
--- NOTE | 2024-07-14 16:13 | CM ---
Patient seen at bedside with physicians on . Patient pending appeal for LTACH and clinicals faxed to insurance Meryl; [phone] cell phone. await response. CM called to review with Acute rehab per Meryl possible for patient, Per liaison at
[facility] they would recommend SNF. CM will send additional referrals; updated as per daughter request.
Plan; SNF pending LTACH appeal
[2024-07-14] MEDS: CRESTOR 20 MG TUBE (18:01)
[2024-07-14] MEDS: COZAAR 25 MG TUBE (18:10)
[2024-07-14 18:39] LABS: Glucose - Point of Care 117 mg/dl (70-99)
[2024-07-14] MEDS: ZOFRAN 4 MG IV (21:44)
[2024-07-14] MEDS: FLUSH (NSS) 2 FLUSH IV (21:45)
[2024-07-14] MEDS: FOLVITE 2 MG TUBE (22:21)
[2024-07-14] MEDS: ROBITUSSIN PO (22:22)
[2024-07-14] MEDS: ROBITUSSIN DM 10 ML PO (22:22)
[2024-07-14] MEDS: MELATONIN 5 MG TUBE (22:23)
[2024-07-14 23:48] LABS: Glucose - Point of Care 111 mg/dl (70-99)
[2024-07-15 03:00] VITALS: BP 117/73
[2024-07-15 03:41] VITALS: BMI 19.4
[2024-07-15 07:01] LABS: Glucose - Point of Care 127 mg/dl (70-99)
[2024-07-15 07:30] VITALS: BP 130/81
[2024-07-15] MEDS: DUONEB 3 ML INH ×3 (07:58→15:37)
[2024-07-15 08:02] LABS: Hematocrit 27.5 % (39.0-52.0); Hemoglobin 8.8 g/dL (13.0-18.0); Mean Corpuscular Hgb 29.1 pg (27.0-31.0); Mean Corpuscular Volume 91.1 fL (80.0-94.0); Mean Platelet Volume 8.7 fL (7.4-10.4); Platelet Count 340 10^3/uL (130-400); Red Blood Cell Count 3.02 10^6/uL (4.70-6.10); Red Cell Dist. Width 15.9 % (11.5-14.5); White Blood Cell Count 9.4 10^3/uL (4.8-10.8)
--- NOTE | 2024-07-15 08:08 | W.PN.HOSP.TC ---
Addendum entered and electronically signed by Isabella Marques MD 07/15/24 14:49:
I saw and evaluated the patient independently. I reviewed the resident�s note and agree with findings and plan as documented by Dr. Faria.
GENERAL: chronically ill appearing male cachectic
HEENT: NC/AT--O2 NC off
HEART: regular rate and rhythm, +S1, +S2, tachy
LUNGS : clear to auscultation bilaterally--decreased BS left base
ABDOM: soft, nontender, nondistended, + bowel sounds
EXT: no cyanosis, clubbing, or edema
NEUROLOGIC: nonfocal
Left mainstem bronchus obstruction, recurrent aspiration -patient have increased secretion and potential for recurrent bronchus obstruction and related complication-- pulmonary toileting--aspiration risk
Recurrent pleural effusion -patient underwent right-sided thoracentesis of 1.1 L. And left-sided thoracentesis of 1.45 L followed by 1.75 L and 750ml. A Pleurx catheter was planned although insurance approval did not come through. Hopefully,
volume can be controlled with dialysis - CXR post HD reviewed--pleural effusion present by my review--await formal read--may need another tap
Acute hypoxic respiratory failure, ventilator dependent respiratory failure, s/p PEA/cardiac arrest -patient had episode of mucous plugging with respiratory arrest. Patient was bradycardic at that time and likely added to the problem. Patient
require ventilator support and was able to be extubated--off O2-- Dyspnea has improved with x3 time left-sided thoracentesis. Remains at high risk of decompensation and further respiratory problems.
Hypercalcemia/parathyroid adenoma/secondary hyperparathyroidism -patient has significant hypercalcemia and likely secondary to ESRD/secondary hyperparathyroidism and parathyroid adenoma found on imaging. Parathyroid hormone close to 1000. Patient
has been maximized on Cinacalcet and also has been provided calcitonin/bisphosphonates. In light of refractory nature of hypercalcemia surgery has been consulted, patient is a candidate for minimally invasive parathyroidectomy once pulmonary status
stabilizes.
NSTEMI -patient was managed conservatively and has finished few days of heparin drip therapy. Echocardiogram showing ejection fraction of 50 to 55%.
Diastolic heart failure exacerbation -patient volume status being managed by hemodialysis, patient makes some urine.
Hx CVA w L hemiparesis, dysarthria, dysphagia-- cont tube feeding
ESRD on MWF HD--apprec renal
anemia of chronic disease- transfused 2 unit pRBCs
Severe calcific atherosclerotic plaque in the coronary arteries on CT Chest
Right chronically impacted humeral neck fracture -imaging finding on CT chest, needs to be verified with previous records
Hyponatremia
Essential Hypertension
Hyperlipidemia
Carotid artery disease s/p R CEA
BPH
Depression
code status--DNI--wants chest compressions
disposition planning--await PM&R eval
Original Note:
Today's Communication/Plan
-
- CXR after HD today
Assessment / Plan
Assessment / Plan
L mainstem bronchus obstruction secondary to secretions
B/l pleural effusions likely secondary to underlying CHF and ESRD
- aspiration risk
- hx CVA/peg tube on tube feeding
- CPT
- resp cx: Pseudomonas, completed 7 days abx
- cont flutter valve
- L thoracentesis #1: 1450 cc straw-colored pleural fluid
- R thoracentesis #1: 1100 cc of clear yellow pleural fluid.
- L thoracentesis #2: 1750 cc of serosanguineous pleural fluid.
- L thoracentesis #3: 750 cc of clear yellow pleural fluid.
- CXR today
Cardiac arrest secondary to asystole
Ventilator dependent respiratory failure - resolved
- required 1 epi and 1 round CPR, ROSC in 3min
- intubated during code
- Post intubation CXR reviewed persistent homogeneous retrocardiac left lower lobe opacity.
NSTEMI
CHF
- trop max 10.7
- was on a heparin drip
- Echo: LVEF 50-55%
- ASA, statin
- hold BB due to recent severe bradycardia
Acute on chronic HFpEF
- proBNP elevated
- echo: LVEF 50-55%
- volume overload managed by HD
Sinus bradycardia w 1st degree AV block - improving
- 06/22: HR 30s, encephalopathic. Dopamine started
- hypoxia, hyperglycemia, hypercalcemia may play a role
Hypercalcemia secondary to parathyroid adenoma and hyperparathyroidism secondary to renal dysfunction
- vit D deficiency
- on cinacalcit
- CT CAP: enlarged parathyroid
- thyroid us: parathyroid adenoma
- pamidronate x1
- surgery consulted - agreeable to perform when medically stable
Hx CVA w L hemiparesis, dysarthria, dysphagia
- cont tube feeding
- PT/OT
- PMR consult
ESRD on MWF HD
anemia of chronic disease
- HD due 07/08
- transfused 2 unit pRBCs
Severe calcific atherosclerotic plaque in the coronary arteries on CT Chest
Right chronically impacted humeral neck fracture -imaging finding on CT chest, needs to be verified with previous records
Hyponatremia
Recent Flu
Benign Hypertension
Hyperlipidemia
Carotid artery disease s/p R CEA
BPH
Depression
Diet: tube feeding
DVT Prophylaxis: Heparin SUBQ
Code Status: limited - DNI only
Anticipated Discharge: > 48 hours
Subjective/Interval History
-
Date of Service: July 15, 2024
No acute overnight events. HD today
Objective Data
-
Labs:
Laboratory Results
07/15/24
06:51
WBC 9.4
Hgb 8.8 L
Hct 27.5 L
Plt Count 340
Sodium Pending
Potassium Pending
Chloride Pending
Carbon Dioxide Pending
BUN Pending
Creatinine Pending
Glucose Pending
Calcium Pending
Vital Signs:
Vital Signs
Temp Pulse Resp BP Pulse Ox
97.5 F 65 16 117/73 95
07/15/24 03:00 07/15/24 08:00 07/15/24 08:00 07/15/24 03:00 07/15/24 08:00
I&O
07/14/24 07/15/24 07/16/24
06:59 06:59 06:59
Intake Total 1774 1000 / 1000
Output Total 0 / 0
Balance 1774 / 1774 1000 / 1000
Review of Systems
-
History Source: Patient
Constitutional: Reports No Symptoms
Respiratory: Reports Trouble Breathing
Cardiac: Reports No Symptoms
Abdomen/GI: Reports No Symptoms
Neuro: Reports No Symptoms
Physical Exam
-
General: Cachectic
HEENT: Normocephalic and Atraumatic
Respiratory: Clear to Auscultation and Accessory Resp Muscle Use
Cardiac: Regular Rhythm and S1/S2
GI: Soft, Nontender, Nondistended and Normal Bowel Sounds
Musculoskeletal: No Clubbing, No Cyanosis and No Edema
Skin: Warm and Dry
Neuro: Awake and Alert
[2024-07-15] MEDS: HEPARIN 5000 UNITS SC ×2 (08:36→21:28)
[2024-07-15] MEDS: ROBITUSSIN 200 MG PO ×4 (08:36→21:36)
[2024-07-15 08:38] LABS: Blood Urea Nitrogen 69 mg/dl (9-20); Calcium 10.6 mg/dl (8.4-10.2); Carbon Dioxide 28 mmol/L (22-30); Chloride 96 mmol/L (98-107); Estimated Creatinine Clearance 16 ml/min; Glucose 116 mg/dl (70-99); Magnesium 2.7 mg/dl (1.6-2.3); Potassium 4.5 mmol/L (3.5-5.1); Sodium 135 mmol/L (135-145); eGFR 15.53
[2024-07-15] MEDS: RETACRIT 6000 UNITS IV (08:50)
[2024-07-15] MEDS: MIRALAX TUBE (08:58)
[2024-07-15] MEDS: FLEXBUMIN 25% FOR HEMODIALYSIS 12.5 GRAMS IV (09:37)
[2024-07-15] MEDS: MANNITOL 25% 12.5 GRAMS IV (09:37)
[2024-07-15 11:06] VITALS: BP 102/70
--- NOTE | 2024-07-15 11:16 | W.PN.NEPH.HD ---
Assessment
-
Seen on HD. no complaints. VSS< access ok
Progress Note - Hemodialysis
-
Date of Service: July 15, 2024
Duration: 30 minutes and 3 hours
Potassium Bath: 2
Calcium Bath: 2
Opti-Dialyzer: 160
Ultrafiltration: Other (2kg)
Blood Flow: 400
Dialysate Flow: 600
Heparin: 0
EPO: 6000 units
[2024-07-15] MEDS: FLUSH (NSS) 1 FLUSH INTRACATH (11:37)
[2024-07-15] MEDS: SENSIPAR 120 MG TUBE (12:20)
[2024-07-15] MEDS: LOW STRENGTH ASPIRIN 81 MG TUBE (12:20)
[2024-07-15] MEDS: SANTYL OINTMENT 1 APPLIC TOPICAL (12:20)
[2024-07-15] MEDS: WELLBUTRIN REGULAR RELEASE 150 MG TUBE ×2 (12:20→21:28)
[2024-07-15] MEDS: PREVACID 15 MG TUBE (12:20)
--- NOTE | 2024-07-15 14:54 | CM ---
Patient seen at bedside on with physicians. Patient daughter updated about family appeal being denied by Alyson at [employer] and pending assessment by PM&R. CM reviewed case with liaison from [facility] and await response. CM discussed
options of Acute Rehab and continued referrals to SNF options. CM will continue to follow for discharge planning needs.
Plan; SNF vs Acute Rehab pending assessment.
[2024-07-15 15:18] VITALS: BP 127/82
[2024-07-15] MEDS: CRESTOR 20 MG TUBE (18:05)
[2024-07-15 19:37] VITALS: BP 137/65
[2024-07-15] MEDS: DUONEB INH (19:41)
[2024-07-15] MEDS: MELATONIN 5 MG TUBE (21:29)
[2024-07-15] MEDS: FOLVITE 2 MG TUBE (21:29)
[2024-07-15 23:18] VITALS: BP 141/82
[2024-07-16 06:00] VITALS: BMI 18.8
[2024-07-16] MEDS: DUONEB 3 ML INH ×3 (07:34→15:40)
--- NOTE | 2024-07-16 07:42 | W.PN.HOSP.TC ---
Addendum entered and electronically signed by Isabella Marques MD 07/16/24 13:16:
I saw and evaluated the patient independently. I reviewed the resident�s note and agree with findings and plan as documented by Dr. Faria.
GENERAL: chronically ill appearing male cachectic
HEENT: NC/AT--O2 NC off
HEART: regular rate and rhythm, +S1, +S2, tachy
LUNGS : clear to auscultation bilaterally--decreased BS left base
ABDOM: soft, nontender, nondistended, + bowel sounds
EXT: no cyanosis, clubbing, or edema
NEUROLOGIC: nonfocal
Left mainstem bronchus obstruction, recurrent aspiration -patient have increased secretion and potential for recurrent bronchus obstruction and related complication-- pulmonary toileting--aspiration risk
Recurrent pleural effusion -patient underwent right-sided thoracentesis of 1.1 L. And left-sided thoracentesis of 1.45 L followed by 1.75 L and 750ml. A Pleurx catheter was planned although insurance approval did not come through. Hopefully,
volume can be controlled with dialysis - CXR post HD reviewed--pleural effusion present by my review--await formal read--may need another tap
Acute hypoxic respiratory failure, ventilator dependent respiratory failure, s/p PEA/cardiac arrest -patient had episode of mucous plugging with respiratory arrest. Patient was bradycardic at that time and likely added to the problem. Patient
require ventilator support and was able to be extubated--off O2-- Dyspnea has improved with x3 time left-sided thoracentesis. Remains at high risk of decompensation and further respiratory problems.
Hypercalcemia/parathyroid adenoma/secondary hyperparathyroidism -patient has significant hypercalcemia and likely secondary to ESRD/secondary hyperparathyroidism and parathyroid adenoma found on imaging. Parathyroid hormone close to 1000. Patient
has been maximized on Cinacalcet and also has been provided calcitonin/bisphosphonates. In light of refractory nature of hypercalcemia surgery has been consulted, patient is a candidate for minimally invasive parathyroidectomy once pulmonary status
stabilizes--informed by renal that Dr. Umer Stroud can do surgery for parathyroid this coming Friday 07/21 as long as pt/family agreeable
NSTEMI -patient was managed conservatively and has finished few days of heparin drip therapy. Echocardiogram showing ejection fraction of 50 to 55%.
Diastolic heart failure exacerbation -patient volume status being managed by hemodialysis, patient makes some urine.
Hx CVA w L hemiparesis, dysarthria, dysphagia-- cont tube feeding
ESRD on MWF HD--apprec renal
anemia of chronic disease- transfused 2 unit pRBCs
Severe calcific atherosclerotic plaque in the coronary arteries on CT Chest
Right chronically impacted humeral neck fracture -imaging finding on CT chest, needs to be verified with previous records
protein calorie malnutrition--cachectic, stage 2 pressure wound--on tube feeds--feels at least moderate if not severe
sacrum stage 2 pressure injury--cont local wound care---unclear to me if POA
Hyponatremia
Essential Hypertension
Hyperlipidemia
Carotid artery disease s/p R CEA
BPH
Depression
code status--DNI--wants chest compressions
disposition planning--await PM&R eval
Original Note:
Today's Communication/Plan
-
.
Assessment / Plan
Assessment / Plan
L mainstem bronchus obstruction secondary to secretions
B/l pleural effusions likely secondary to underlying CHF and ESRD
- aspiration risk
- hx CVA/peg tube on tube feeding
- CPT
- resp cx: Pseudomonas, completed 7 days abx
- cont flutter valve
- L thoracentesis #1: 1450 cc straw-colored pleural fluid
- R thoracentesis #1: 1100 cc of clear yellow pleural fluid.
- L thoracentesis #2: 1750 cc of serosanguineous pleural fluid.
- L thoracentesis #3: 750 cc of clear yellow pleural fluid.
- CXR today
Cardiac arrest secondary to asystole
Ventilator dependent respiratory failure - resolved
- required 1 epi and 1 round CPR, ROSC in 3min
- intubated during code
- Post intubation CXR reviewed persistent homogeneous retrocardiac left lower lobe opacity.
NSTEMI
CHF
- trop max 10.7
- was on a heparin drip
- Echo: LVEF 50-55%
- ASA, statin
- hold BB due to recent severe bradycardia
Acute on chronic HFpEF
- proBNP elevated
- echo: LVEF 50-55%
- volume overload managed by HD
Sinus bradycardia w 1st degree AV block - improving
- 06/22: HR 30s, encephalopathic. Dopamine started
- hypoxia, hyperglycemia, hypercalcemia may play a role
Hypercalcemia secondary to parathyroid adenoma and hyperparathyroidism secondary to renal dysfunction
- vit D deficiency
- on cinacalcit
- CT CAP: enlarged parathyroid
- thyroid us: parathyroid adenoma
- pamidronate x1
- surgery consulted - agreeable to perform when medically stable
Hx CVA w L hemiparesis, dysarthria, dysphagia
- cont tube feeding
- PT/OT
- PMR consult
ESRD on MWF HD
anemia of chronic disease
- HD due 07/08
- transfused 2 unit pRBCs
Severe calcific atherosclerotic plaque in the coronary arteries on CT Chest
Right chronically impacted humeral neck fracture -imaging finding on CT chest, needs to be verified with previous records
Hyponatremia
Recent Flu
Benign Hypertension
Hyperlipidemia
Carotid artery disease s/p R CEA
BPH
Depression
Diet: tube feeding
DVT Prophylaxis: Heparin SUBQ
Code Status: limited - DNI only
Anticipated Discharge: > 48 hours
Subjective/Interval History
-
Date of Service: July 16, 2024
No acute overnight events
Objective Data
-
Labs:
Laboratory Results
07/16/24
06:00
WBC Pending
Hgb Pending
Hct Pending
Plt Count Pending
Sodium Pending
Potassium Pending
Chloride Pending
Carbon Dioxide Pending
BUN Pending
Creatinine Pending
Glucose Pending
Calcium Pending
Vital Signs:
Vital Signs
Temp Pulse Resp BP Pulse Ox
98.4 F 75 16 141/82 96
07/15/24 23:18 07/16/24 07:34 07/16/24 07:34 07/15/24 23:18 07/16/24 07:34
I&O
07/15/24 07/16/24 07/17/24
06:59 06:59 06:59
Intake Total 1000 / 1000 1000 / 1000
Balance 1000 / 1000 1000 / 1000
Review of Systems
-
History Source: Patient
Constitutional: Reports No Symptoms
Respiratory: Reports Trouble Breathing
Cardiac: Reports No Symptoms
Abdomen/GI: Reports No Symptoms
Musculoskeletal: Reports No Symptoms
Skin: Reports No Symptoms
Neuro: Reports No Symptoms
Physical Exam
-
General: Well Developed and Well Nourished
HEENT: Normocephalic and Atraumatic
Respiratory: Clear to Auscultation and Accessory Resp Muscle Use
Cardiac: Regular Rhythm and S1/S2
GI: Soft, Nontender, Nondistended and Normal Bowel Sounds
Musculoskeletal: No Clubbing, No Cyanosis and No Edema
Skin: Warm and Dry
Neuro: Awake, Alert and Oriented
[2024-07-16 08:37] VITALS: BP 155/94
--- NOTE | 2024-07-16 09:00 | CON.MD ---
Documented by User: Marisabel Apple PA-C 07/16/24 16:02
Consultation - Medical
-
Referring Provider:�Isabella Metzger
Chief Complaint:�Debility
�
History of Present Illness:�Patient is a 60-year-old male with PMH of CAD, s/p right CEA , at [facility], end-stage renal disease on hemodialysis, hypertension, hyperlipidemia, hypothyroidism, CHF with reduced ejection
fracture of 40 to 45%, history of stroke, PEG tube dependent for nutrition and medications.) brought from correction facility for worsening shortness of breath. Patient reportedly has been feeling short of breath over the last couple weeks
which has progressively gotten worse. Imaging in the ED showed near complete collapse of the left lung with large pleural effusion as well as moderate pleural effusion on the right side. Also noted to have significantly elevated troponin along
with sinus bradycardia. He was started on broad-spectrum antibiotics, aspirin as well as heparin drip for suspected NSTEMI. Patient subsequently had a cardio pulmonary arrest and required CPR on 06/23 and code status was reversed from DNR to full
code. Patient was intubated for 2 days and it was felt to be related to mucous plug obstructing left main bronchus. Patient was successfully extubated on 06/25/24.
Bilateral pleural effusions left > right status post thoracentesis x 4 since 06/21/2024
Status post intubation and mechanical ventilation-06/23/2024 through 06/25/2024
Cardiac arrest status post asystole-epi, CPR ROSC in 3 minutes
Sinus bradycardia - now normal heart rate
Lung atelectasis due to mucous plugging and pleural effusion
Interventional radiology-thoracentesis performed 07/08/2024 urgently due to significant shortness of breath -- transudative pleural effusion
Thoracentesis L 07/08/24--750 mL of yellow pleural fluid- Tot P 3.2 - LDH 87, culture neg. Respiratory status improved significantly after thoracentesis and hemodialysis 07/08/2024.�Now on RA, stable. He is off O2 and no plan of intervention per
pulmonary.
Per hospitalist notes- Patient with hypercalcemia/parathyroid adenoma/secondary hyperparathyroidism -patient has significant hypercalcemia and likely secondary to ESRD/secondary hyperparathyroidism and parathyroid adenoma found on imaging.
Parathyroid hormone close to 1000. Patient has been maximized on Cinacalcet and also has been provided calcitonin/bisphosphonates. In light of refractory nature of hypercalcemia surgery has been consulted, patient is a candidate for minimally
invasive parathyroidectomy once pulmonary status stabilizes--informed by renal that Dr. Umer Stroud can do surgery for parathyroid this coming Friday 07/21 as long as pt/family agreeable
Past Medical History:�CAD, s/p right CEA in the past, end-stage renal disease on hemodialysis, hypertension, hyperlipidemia, hypothyroidism, CHF with reduced ejection fracture of 40 to 45%, Cardiomegaly, history of stroke with left hemiparesis,
dysphagia on PEG tube, dysarthria
Procedure History:�Right CEA-[facility], PEG placement
Family History:�non contributory
�
Social History:�
Functional Level Premorbidly:�Assisted, non ambulatory, uses wheelchair
Functional Level Currently:�Bed mobility�max assist, x 2 for trunk, lower extremity management due to profound weakness, transfer-max assist, ambulation not assessed. Patient sat edge of bed x 10 minutes during ADL task in seated LAQ, intermittent
min assist required. Eating, toileting, upper extremity care, lower extremity care�dependent, (07/16) ambulated 3 sidesteps along edge of bed with rolling walker, max visual cues for technique, max assist x 2 for maintaining balance.
�
Tobacco:�Denies�
Alcohol:�Denies�
Drug use:�Denies�
�
Lives with:�[facility]
24-hour assistance available:�
Number of floors:�1
# steps to enter:�
# steps to second floor: 0
Potential First floor set up:�yes
Driving:�no
Occupation:�Retired
�
�
Allergies:�
Allergy/AdvReac Type Severity Reaction Status Date / Time
No Known Allergies Allergy Unverified 06/20/24 18:04
�
Review of Systems:�
Constitutional: (x) Normal _
Eye: (x) Normal _
Ear/Nose/Throat: (x) Normal _
Respiratory: (x) abNormal _dyspnea, secretion plugs
Cardiovascular: (x) abNormal _chf, bradycardia
Gastrointestinal: (x) abNormal _peg tube dependent,, dysarthria, dysphagia
Genitourinary: (x) Normal _
Musculoskeletal: (x) abNormal _weakness
Integumentary: (x) Normal _
Neurologic: (x) Normal _
Psychiatric: (x) Normal _
Endocrine: (x) Normal _
Hematologic/Lymphatic: (x) Normal _
Allergic/Immunologic: (x) Normal _
�
Medications:�
Active Current Visit Medication List
Category Date Time Status
Acetaminophen [Tylenol] Med 06/20/24 23:07 Active
650 mg TUBE Q6HPRN PRN
Albumin Human 25% 50 ml [Flexbumin 25% For Hemodialysis Med 07/15/24 08:00 Active
]
12.5 grams IV HD-Q1HPRN PRN
Alprazolam [Xanax] Med 07/07/24 15:40 Active
0.25 mg TUBE Q8HPRN PRN
Artificial Tears (Pf) [Refresh Eye Drops (Pf)] Med 06/20/24 23:07 Active
1 drops BOTH EYES Q2HPRN PRN
Aspirin Chewable [Low Strength Aspirin] Med 06/26/24 08:00 Active
81 mg TUBE DAILY
Bisacodyl [Dulcolax] Med 06/20/24 23:07 Active
10 mg RECTAL DAILYPRN PRN
Bupropion Regular Release [Wellbutrin Regular Release] Med 06/25/24 20:00 Active
150 mg TUBE BID
Cinacalcet HCl [Sensipar] Med 07/05/24 09:44 Active
120 mg TUBE DAILY
Collagenase [Santyl Ointment] Med 07/07/24 08:00 Active
See Dose Instructions TOPICAL DAILY
Dextrose 50%-Water [Dextrose 50% Syringe] Med 06/22/24 17:00 Active
12.5 grams IV [id number] PRN
FOLic ACID [Folvite] Med 06/20/24 23:07 Active
2 mg TUBE HS
Flush (0.9% Sodium Chloride) [Flush (Nss)] Med 06/20/24 22:00 Active
See Dose Instructions IV PER PROTOCOL
Glucagon [GlucaGen] Med 06/22/24 17:00 Active
1 mg IM PRN PRN
Guaifenesin Solution [Robitussin] Med 07/10/24 13:00 Active
200 mg PO QID
Guaifenesin/Dextromethorphan [Robitussin Dm] Med 06/22/24 04:32 Active
10 ml PO Q4HPRN PRN
Heparin Med 06/24/24 20:00 Active
5,000 units SC Q12
HydrALAZINE [Apresoline] Med 07/07/24 15:40 Active
10 mg IV Q4HPRN PRN
Ipratropium/Albuterol Sulfate [Duoneb] Med 07/10/24 10:33 Active
3 ml INH R Q4HPRN PRN
Ipratropium/Albuterol Sulfate [Duoneb] Med 07/10/24 12:00 Active
3 ml INH R QID
Lansoprazole [Prevacid] Med 06/21/24 08:00 Active
15 mg TUBE DAILY
Losartan [Cozaar] Med 06/21/24 19:00 Active
25 mg TUBE SuTuThSa@1900
Mannitol 25% Med 07/15/24 08:00 Active
12.5 grams IV HD-Q1HPRN PRN
Melatonin Med 06/20/24 23:07 Active
5 mg TUBE HS
Ondansetron Injectable [Zofran] Med 06/28/24 10:20 Active
4 mg IV Q6HPRN PRN
Polyethylene Glycol Powder [Miralax] Med 06/24/24 08:00 Active
17 grams TUBE DAILY
Rosuvastatin Calcium [Crestor] Med 06/23/24 18:00 Active
20 mg TUBE QPM
�
Vitals:�
Temp Pulse Resp BP Pulse Ox
97.5 F 76 18 155/94 95
07/16/24 08:37 07/16/24 08:37 07/16/24 08:37 07/16/24 08:37 07/16/24 08:37
Height 5 ft 11 in
Actual Weight 61.235 kg
Body Mass Index (BMI) 18.8
�
Physical Exam:�
General Appearance/Observation: Thin individual in no apparent distress lying in bed.�
Pain/Comfort Assessment: buttocks
Mood/Affect: Appropriate�
�
Integumentary/Operative Site:�
�� Pressure Ulcer Evaluation: absent over heels.�
��
�� Other Type of Wound: scabs on toes
��
�
Eyes: Conjunctiva/Lids: normal���� Pupils: pupils equal round
Ears/Nose/Throat: oral mucosa moist,� throat clear.������������ Lips/Teeth/Gums: normal�
Neck: No muscle spasm or tenderness�
Cardiovascular: Heart: regular, murmur�
Pulses: dorsalis pedis 2+ bilaterally�
Respiratory: Respiratory Effort/Chest Expansion: normal������� Auscultation: Coarse sounds bilaterally
Gastrointestinal: abdomen not tender, no distension, normal abdominal bowel sounds
Genitourinary: No Bender�
Extremities:�Edema: None�Cyanosis: None�Trophic�changes: legs, arms
�
Neurology Exam:
Orientation: Alert, Oriented to self, Time-knew year and month, Place-said hospital�
Memory: Intact for basic questions.
Comprehension: impaired. Needs repeating
Two step command: impaired. Needs repetition
Naming: Intact
Cranial Nerves:
�� CNII:�Pupillary light reflex: Intact����Visual Field: NT
�� CN III, IV, : Extraocular muscles: Intact�
�� CN V:�Facial Sensation�at�Forehead: Intact,�Maxilla: Intact,�Mandible: Intact
�� CN VII:�Facial movement: Symmetric
�� CN VIII:�Hearing: Normal
�� CN IX/X:�Speech & swallow: dysarthric, low volume�Position of Uvula: Midline
�� CN XI:�Shoulder shrug: weakness left
�� CN XII:�Tongue protrusion: Midline
Sensory:
�� Light touch: Intact in bilateral upper and lower extremities
��
�
Reflexes:
�� Biceps: 1+ bilaterally
�� Brachioradialis: absent bilaterally
�� Triceps: 1+ bilaterally
�� Patellar: 1+ bilaterally
�� Achilles: absent bilaterally
�� Babinski: no response
�� Clonus: None
�� Terrie: Negative bilaterally�
Cerebellar: Dysmetria/Ataxia: unable to test on left
Musculoskeletal:
Motor: (Manual muscle scale 0-5)�
Muscle SA EF WE EE FF FA HF KE DF EHL PF
Right� 4 4 4 4 4 4 4 4
Left 2 2 2 3 1+ 1+ 1+ 1+
�
Tone: Normal in all extremities. Muscle atrophy noted
Range of Motion: Passively within normal limits in all extremities�
�
Lab Results
Labs
WBC 9.4 10^3/uL (4.8-10.8) 07/15/24 06:51
RBC 3.02 10^6/uL (4.70-6.10) L 07/15/24 06:51
Hgb 8.8 g/dL (13.0-18.0) L 07/15/24 06:51
Hct 27.5 % (39.0-52.0) L 07/15/24 06:51
MCV 91.1 fL (80.0-94.0) 07/15/24 06:51
MCH 29.1 pg (27.0-31.0) 07/15/24 06:51
MCHC 32.0 g/dL (33.0-37.0) L 07/15/24 06:51
RDW 15.9 % (11.5-14.5) H 07/15/24 06:51
Plt Count 340 10^3/uL (130-400) 07/15/24 06:51
MPV 8.7 fL (7.4-10.4) 07/15/24 06:51
Abs Immat Gran (auto) 0.0 10^3/uL (0-0.05) 06/20/24 18:13
Absolute Neuts (auto) 5.2 10^3/uL (1.4-6.5) 06/20/24 18:13
Absolute Lymphs (auto) 0.9 10^3/uL (1.2-3.4) L 06/20/24 18:13
Absolute Monos (auto) 0.6 10^3/uL (0.1-0.6) 06/20/24 18:13
Absolute Eos (auto) 0.2 10^3/uL (0-0.7) 06/20/24 18:13
Absolute Basos (auto) 0.0 10^3/uL (0-0.2) 06/20/24 18:13
CBC Comment Cancelled 07/11/24 06:00
Immature Gran % 0.1 % (0-0.5) 06/20/24 18:13
Neutrophils % 76.1 % (42.2-75.2) H 06/20/24 18:13
Lymphocytes % 12.6 % (20.5-51.1) L 06/20/24 18:13
Monocytes % 8.1 % (1.7-9.3) 06/20/24 18:13
Eosinophils % 2.5 % (0-6) 06/20/24 18:13
Basophils % 0.6 % (0-2) 06/20/24 18:13
Nucleated RBC % 0 % (-) 06/20/24 18:13
APTT 74.0 Sec (23.4-35.0) H 06/24/24 03:32
pH 7.43 (7.35-7.45) 06/25/24 13:10
pCO2 49 mmHg (35-48) H 06/25/24 13:10
pO2 141 mmHg (83-108) H 06/25/24 13:10
HCO3 32.5 mmol/L (21-28) H 06/25/24 13:10
Base Excess 7.4 mmol/L 06/25/24 13:10
ABG O2 Sat (Measured) 99.4 % (94-98) H 06/25/24 13:10
Sodium 131 mMOL/L (136-145) L 06/23/24 23:38
Potassium 3.9 mMOL/L (3.5-5.1) 06/23/24 23:38
O2 Delivery Level 06/25/24 13:10
Sodium 135 mmol/L (135-145) 07/15/24 06:51
Potassium 4.5 mmol/L (3.5-5.1) 07/15/24 06:51
Chloride 96 mmol/L (98-107) L 07/15/24 06:51
Carbon Dioxide 28 mmol/L (22-30) 07/15/24 06:51
BUN 69 mg/dl (9-20) H 07/15/24 06:51
Creatinine 4.0 mg/dL (0.7-1.3) H 07/15/24 06:51
Estimated Creat Clear 16 ml/min 07/15/24 06:51
eGFR 15.53 07/15/24 06:51
Glucose 116 mg/dl (70-99) H 07/15/24 06:51
Lactic Acid 0.8 mmol/L (0.7-2.0) 06/20/24 20:17
Calcium 10.6 mg/dl (8.4-10.2) H 07/15/24 06:51
Ionized Calcium 1.63 mMOL/L (1.15-1.33) H* 06/29/24 03:05
Phosphorus 2.5 mg/dl (2.5-4.5) 06/22/24 12:03
Magnesium 2.7 mg/dl (1.6-2.3) H 07/15/24 06:51
Total Bilirubin 0.5 mg/dl (0.2-1.3) 06/25/24 04:13
AST 38 U/L (17-59) 06/25/24 04:13
ALT 43 U/L (0-50) 06/25/24 04:13
Alkaline Phosphatase 126 U/L (38-126) 06/25/24 04:13
Lactate Dehydrogenase 112 U/L (120-246) L 06/29/24 03:05
Troponin I 8.010 ng/ml H* 06/22/24 12:03
Igl-T-Khhwmujkbjy Pept > 88523 pg/ml 06/20/24 18:13
Total Protein 5.2 g/dl (6.3-8.2) L 06/29/24 03:05
Tot Protein (send out) 5.5 g/dL (6.3-8.2) L 06/22/24 23:45
Albumin 2.3 g/dl (3.5-5.0) L 06/25/24 04:13
Albumin (PEP) 2.65 g/dL (3.75-5.01) L 06/22/24 23:45
Yirxn-4-Pkrfsurou 0.49 g/dL (0.19-0.46) H 06/22/24 23:45
Ssmju-6-Qlefjcddk 0.86 g/dL (0.48-1.05) 06/22/24 23:45
Beta Globulins 0.66 g/dL (0.48-1.10) 06/22/24 23:45
Gamma Globulins 0.95 g/dL (0.62-1.51) 06/22/24 23:45
Ser Monoclonl Protein Not applicable g/dL (<=0.00) 06/22/24 23:45
Serum PEP EER See note 06/22/24 23:45
Angiotensin Convert Enz 26 U/L (16-85) 06/22/24 23:45
Vitamin D 25-Hydroxy 48.0 ng/mL (30-80) 06/22/24 12:03
Vit D 1,25-Dihydroxy 20.3 pg/mL (19.9-79.3) 06/22/24 23:45
TSH 4.03 uIU/ml (0.47-4.68) 06/21/24 02:39
PTH Intact 1022 pg/ml (13.6-85.8) H 06/22/24 14:58
PTH Related Peptide 5.4 pmol/L (0.0-2.3) H 06/24/24 03:32
Serum Immunofix Reflex Not done 06/22/24 23:45
Fluid pH 7.44 06/29/24 08:24
Fluid WBC 292 /CUMM 07/08/24 15:21
Fluid Mononuclear Cell 76.7 % 07/08/24 15:21
Fl Polymorphonucl Cell 23.3 % 07/08/24 15:21
Fluid Other Cells Not Reportable 07/08/24 15:21
Fluid Diff Path Review Not Reportable 07/08/24 15:21
Fluid Glucose 84 mg/dl 07/08/24 15:21
Fluid Total Protein 3.2 g/dl 07/08/24 15:21
Fluid LDH 87 U/L 07/08/24 15:21
Fluid Amylase < 30 U/L 06/21/24 12:51
Fluid Triglycerides < 30 mg/dl 06/21/24 12:51
MISAEL & SPEP Interp See note 06/22/24 23:45
Hep Bs Antigen Negative (Negative) 07/10/24 08:18
Hep Bs Antibody Indeterminate 07/10/24 08:18
Hep B Core Total Ab Negative (Negative) 07/10/24 08:18
Hepatitis C Antibody Negative (Negative) 07/10/24 08:18
SARS-CoV-2 Antigen Negative (Negative) 06/20/24 19:36
POC Glucose 127 mg/dl (70-99) H 07/15/24 06:59
Blood Type A POS 06/23/24 10:59
Blood Type Confirm A POS 06/23/24 11:32
Antibody Screen Negative (Negative) 06/23/24 10:59
Crossmatch IS Only See Detail 06/23/24 10:59
�
Diagnostic Results:�as per HPI�
Chest x-ray 07/15/24
Right internal jugular central venous catheter with tip overlying right atrium is unchanged. There is right upper extremity midline catheter with tip overlying the arm, also unchanged. There is small to moderate left pleural effusion with adjacent
atelectasis. Posterior right costophrenic sulcus is obscured and there is probably minimal right effusion. There is vascular congestion. There is some bilateral increased interstitial opacity probably related to interstitial edema. Small amount of
airspace opacity over the right lower lung and left upper lung which may be related to alveolar edema. No pneumothorax. Marked cardiomegaly is unchanged. Mediastinal silhouette within normal limits. No acute osseous abnormality is seen. Chronic
posttraumatic deformity proximal right humerus. There are some degenerative changes of the thoracic spine, not well seen on this examination.
Chest ultrasound- 07/13/2024
Limited targeted ultrasound evaluation of the left chest was performed. Images show a small/moderate left-sided pleural effusion.
Thyroid Ultrasound- 06/25/24
1. No discrete thyroid nodules.
2. A hypoechoic mass posterior to left thyroid lobe measuring up to 3.8 cm may reflect parathyroid adenoma or enlarged lymph nodes.
�
Assessment: 68-year-old male with ADL ,ambulatory dysfunction associated with complex medical history of cva, PEG tub dependence, CHF, ESRD on HD, admitted for shortness of breath found to have recurrent pleural effusions requiring multiple
thoracentesis and acute on chronic CHF
�
Plan�
PT/OT to increase independence with ADLs, improve balance, coordination, endurance, strength, mobility, community reintegration, decreased burden of care on others and family education.�
Debility: Would benefit from continued PT/OT of 1-2 hours at a correction facility
Recurrent pleural effusions� likely secondary to underlying CHF and ESRD. S/P right-sided and left thoracentesis.
H/O CVA/Left/hemiparesis: High risk for falls and sliding out of chair/bed. Safety reinforced.�
- Avoid using affected arm to help lift or pull patient as this will cause trauma to the shoulder.
Dysphagia�tube feeding
Acute hypoxic respiratory failure�was ventilator dependent: Episode of mucous plugging with respiratory arrest. Improved after thoracentesis-
HTN: continue medication, monitor closely�
HLD: Rosuvastatin 20 mg 2 every afternoon
Coronary artery disease: s/p R CEA. Aspirin, statin, beta-dany�
NSTEMI: managed conservatively. Competed heparin drip. Echocardiogram- EF 50 to 55%.� Aspirin, statin, BP control.�
Acute on chronic CHF: Echo: LVEF 50-55% %. volume overload managed by HD
Hypercalcemia secondary to parathyroid adenoma and hyperparathyroidism: secondary to renal dysfunction
- vit D deficiency
- on cinacalcit
- CT CAP: enlarged parathyroid
- thyroid us: parathyroid adenoma
- pamidronate x1
- surgery consulted - agreeable to perform when medically stable
Anemia of chronic disease- transfused 2 unit pRBCs. Hgb 9.7 as of 07/16
ESRD: on MWF HD-.Nephrology follows.
Psych/depression: Psychology consult.� Alprazolam 0.25 mg to Q8 as needed
Skin: monitor for pressure sores/rashes/lesions.�
Pain: acetaminophen or oxycodone as needed.�
Bowel: MiraLAX grams tube daily.� Bisacodyl 10 mg rectal as needed
Bladder: Time void, PVRs, PRN straight cath.�
GI Prophylaxis: Lansoprazole 15 mg tube daily
DVT Prophylaxis: Heparin 5000 unit SC every 12
Pulmonary: Incentive spirometry�
Safety: Continue to reinforce assistance with all transfers.�
Code Status:�Limited DNR�
�
Discharge Destination:� SNF
�
�
Thank you for allowing me to care for your patient. Please contact me with any questions or concerns.

Documented by User: Oscar [email or web address] MD 07/16/24 16:37
Consultation - Medical
-
Referring Provider:�Isabella Metzger
Chief Complaint:�Debility
�
History of Present Illness:�Patient is a 60-year-old male with PMH of CAD, s/p right CEA , at [facility], end-stage renal disease on hemodialysis, hypertension, hyperlipidemia, hypothyroidism, CHF with reduced ejection
fracture of 40 to 45%, history of stroke, PEG tube dependent for nutrition and medications.) brought from correction facility for worsening shortness of breath. Patient reportedly has been feeling short of breath over the last couple weeks
which has progressively gotten worse. Imaging in the ED showed near complete collapse of the left lung with large pleural effusion as well as moderate pleural effusion on the right side. Also noted to have significantly elevated troponin along
with sinus bradycardia. He was started on broad-spectrum antibiotics, aspirin as well as heparin drip for suspected NSTEMI. Patient subsequently had a cardio pulmonary arrest and required CPR on 06/23 and code status was reversed from DNR to full
code. Patient was intubated for 2 days and it was felt to be related to mucous plug obstructing left main bronchus. Patient was successfully extubated on 06/25/24.
Bilateral pleural effusions left > right status post thoracentesis x 4 since 06/21/2024
Status post intubation and mechanical ventilation-06/23/2024 through 06/25/2024
Cardiac arrest status post asystole-epi, CPR ROSC in 3 minutes
Sinus bradycardia - now normal heart rate
Lung atelectasis due to mucous plugging and pleural effusion
Interventional radiology-thoracentesis performed 07/08/2024 urgently due to significant shortness of breath -- transudative pleural effusion
Thoracentesis L 07/08/24--750 mL of yellow pleural fluid- Tot P 3.2 - LDH 87, culture neg. Respiratory status improved significantly after thoracentesis and hemodialysis 07/08/2024.�Now on RA, stable. He is off O2 and no plan of intervention per
pulmonary.
Per hospitalist notes- Patient with hypercalcemia/parathyroid adenoma/secondary hyperparathyroidism -patient has significant hypercalcemia and likely secondary to ESRD/secondary hyperparathyroidism and parathyroid adenoma found on imaging.
Parathyroid hormone close to 1000. Patient has been maximized on Cinacalcet and also has been provided calcitonin/bisphosphonates. In light of refractory nature of hypercalcemia surgery has been consulted, patient is a candidate for minimally
invasive parathyroidectomy once pulmonary status stabilizes--informed by renal that Dr. Umer Stroud can do surgery for parathyroid this coming Friday 07/21 as long as pt/family agreeable
Past Medical History:�CAD, s/p right CEA in the past, end-stage renal disease on hemodialysis, hypertension, hyperlipidemia, hypothyroidism, CHF with reduced ejection fracture of 40 to 45%, Cardiomegaly, history of stroke with left hemiparesis,
dysphagia on PEG tube, dysarthria
Procedure History:�Right CEA-[facility], PEG placement
Family History:�non contributory
�
Social History:�
Functional Level Premorbidly:�Assisted, non ambulatory, uses wheelchair
Functional Level Currently:�Bed mobility�max assist, x 2 for trunk, lower extremity management due to profound weakness, transfer-max assist, ambulation not assessed. Patient sat edge of bed x 10 minutes during ADL task in seated LAQ, intermittent
min assist required. Eating, toileting, upper extremity care, lower extremity care�dependent, (07/16) ambulated 3 sidesteps along edge of bed with rolling walker, max visual cues for technique, max assist x 2 for maintaining balance.
�
Tobacco:�Denies�
Alcohol:�Denies�
Drug use:�Denies�
�
Lives with:�[facility]
24-hour assistance available:�
Number of floors:�1
# steps to enter:�
# steps to second floor: 0
Potential First floor set up:�yes
Driving:�no
Occupation:�Retired
�
�
Allergies:�
Allergy/AdvReac Type Severity Reaction Status Date / Time
No Known Allergies Allergy Unverified 06/20/24 18:04
�
Review of Systems:�
Constitutional: (x) Normal _
Eye: (x) Normal _
Ear/Nose/Throat: (x) Normal _
Respiratory: (x) abNormal _dyspnea, secretion plugs
Cardiovascular: (x) abNormal _chf, bradycardia
Gastrointestinal: (x) abNormal _peg tube dependent,, dysarthria, dysphagia
Genitourinary: (x) Normal _
Musculoskeletal: (x) abNormal _weakness
Integumentary: (x) Normal _
Neurologic: (x) Normal _
Psychiatric: (x) Normal _
Endocrine: (x) Normal _
Hematologic/Lymphatic: (x) Normal _
Allergic/Immunologic: (x) Normal _
�
Medications:�
Active Current Visit Medication List
Category Date Time Status
Acetaminophen [Tylenol] Med 06/20/24 23:07 Active
650 mg TUBE Q6HPRN PRN
Albumin Human 25% 50 ml [Flexbumin 25% For Hemodialysis Med 07/15/24 08:00 Active
]
12.5 grams IV HD-Q1HPRN PRN
Alprazolam [Xanax] Med 07/07/24 15:40 Active
0.25 mg TUBE Q8HPRN PRN
Artificial Tears (Pf) [Refresh Eye Drops (Pf)] Med 06/20/24 23:07 Active
1 drops BOTH EYES Q2HPRN PRN
Aspirin Chewable [Low Strength Aspirin] Med 06/26/24 08:00 Active
81 mg TUBE DAILY
Bisacodyl [Dulcolax] Med 06/20/24 23:07 Active
10 mg RECTAL DAILYPRN PRN
Bupropion Regular Release [Wellbutrin Regular Release] Med 06/25/24 20:00 Active
150 mg TUBE BID
Cinacalcet HCl [Sensipar] Med 07/05/24 09:44 Active
120 mg TUBE DAILY
Collagenase [Santyl Ointment] Med 07/07/24 08:00 Active
See Dose Instructions TOPICAL DAILY
Dextrose 50%-Water [Dextrose 50% Syringe] Med 06/22/24 17:00 Active
12.5 grams IV [id number] PRN
FOLic ACID [Folvite] Med 06/20/24 23:07 Active
2 mg TUBE HS
Flush (0.9% Sodium Chloride) [Flush (Nss)] Med 06/20/24 22:00 Active
See Dose Instructions IV PER PROTOCOL
Glucagon [GlucaGen] Med 06/22/24 17:00 Active
1 mg IM PRN PRN
Guaifenesin Solution [Robitussin] Med 07/10/24 13:00 Active
200 mg PO QID
Guaifenesin/Dextromethorphan [Robitussin Dm] Med 06/22/24 04:32 Active
10 ml PO Q4HPRN PRN
Heparin Med 06/24/24 20:00 Active
5,000 units SC Q12
HydrALAZINE [Apresoline] Med 07/07/24 15:40 Active
10 mg IV Q4HPRN PRN
Ipratropium/Albuterol Sulfate [Duoneb] Med 07/10/24 10:33 Active
3 ml INH R Q4HPRN PRN
Ipratropium/Albuterol Sulfate [Duoneb] Med 07/10/24 12:00 Active
3 ml INH R QID
Lansoprazole [Prevacid] Med 06/21/24 08:00 Active
15 mg TUBE DAILY
Losartan [Cozaar] Med 06/21/24 19:00 Active
25 mg TUBE SuTuThSa@1900
Mannitol 25% Med 07/15/24 08:00 Active
12.5 grams IV HD-Q1HPRN PRN
Melatonin Med 06/20/24 23:07 Active
5 mg TUBE HS
Ondansetron Injectable [Zofran] Med 06/28/24 10:20 Active
4 mg IV Q6HPRN PRN
Polyethylene Glycol Powder [Miralax] Med 06/24/24 08:00 Active
17 grams TUBE DAILY
Rosuvastatin Calcium [Crestor] Med 06/23/24 18:00 Active
20 mg TUBE QPM
�
Vitals:�
Temp Pulse Resp BP Pulse Ox
97.5 F 76 18 155/94 95
07/16/24 08:37 07/16/24 08:37 07/16/24 08:37 07/16/24 08:37 07/16/24 08:37
Height 5 ft 11 in
Actual Weight 61.235 kg
Body Mass Index (BMI) 18.8
�
Physical Exam:�
General Appearance/Observation: Thin individual in no apparent distress lying in bed.�
Pain/Comfort Assessment: buttocks
Mood/Affect: Appropriate�
�
Integumentary/Operative Site:�
�� Pressure Ulcer Evaluation: absent over heels.�
��
�� Other Type of Wound: scabs on toes
��
�
Eyes: Conjunctiva/Lids: normal���� Pupils: pupils equal round
Ears/Nose/Throat: oral mucosa moist,� throat clear.������������ Lips/Teeth/Gums: normal�
Neck: No muscle spasm or tenderness�
Cardiovascular: Heart: regular, murmur�
Pulses: dorsalis pedis 2+ bilaterally�
Respiratory: Respiratory Effort/Chest Expansion: normal������� Auscultation: Coarse sounds bilaterally
Gastrointestinal: abdomen not tender, no distension, normal abdominal bowel sounds
Genitourinary: No Bender�
Extremities:�Edema: None�Cyanosis: None�Trophic�changes: legs, arms
�
Neurology Exam:
Orientation: Alert, Oriented to self, Time-knew year and month, Place-said hospital�
Memory: Intact for basic questions.
Comprehension: impaired. Needs repeating
Two step command: impaired. Needs repetition
Naming: Intact
Cranial Nerves:
�� CNII:�Pupillary light reflex: Intact����Visual Field: NT
�� CN III, IV, : Extraocular muscles: Intact�
�� CN V:�Facial Sensation�at�Forehead: Intact,�Maxilla: Intact,�Mandible: Intact
�� CN VII:�Facial movement: Symmetric
�� CN VIII:�Hearing: Normal
�� CN IX/X:�Speech & swallow: dysarthric, low volume�Position of Uvula: Midline
�� CN XI:�Shoulder shrug: weakness left
�� CN XII:�Tongue protrusion: Midline
Sensory:
�� Light touch: Intact in bilateral upper and lower extremities
��
�
Reflexes:
�� Biceps: 1+ bilaterally
�� Brachioradialis: absent bilaterally
�� Triceps: 1+ bilaterally
�� Patellar: 1+ bilaterally
�� Achilles: absent bilaterally
�� Babinski: no response
�� Clonus: None
�� Terrie: Negative bilaterally�
Cerebellar: Dysmetria/Ataxia: unable to test on left
Musculoskeletal:
Motor: (Manual muscle scale 0-5)�
Muscle SA EF WE EE FF FA HF KE DF EHL PF
Right� 4 4 4 4 4 4 4 4
Left 2 2 2 3 1+ 1+ 1+ 1+
�
Tone: Normal in all extremities. Muscle atrophy noted
Range of Motion: Passively within normal limits in all extremities�
�
Lab Results
Labs
WBC 9.4 10^3/uL (4.8-10.8) 07/15/24 06:51
RBC 3.02 10^6/uL (4.70-6.10) L 07/15/24 06:51
Hgb 8.8 g/dL (13.0-18.0) L 07/15/24 06:51
Hct 27.5 % (39.0-52.0) L 07/15/24 06:51
MCV 91.1 fL (80.0-94.0) 07/15/24 06:51
MCH 29.1 pg (27.0-31.0) 07/15/24 06:51
MCHC 32.0 g/dL (33.0-37.0) L 07/15/24 06:51
RDW 15.9 % (11.5-14.5) H 07/15/24 06:51
Plt Count 340 10^3/uL (130-400) 07/15/24 06:51
MPV 8.7 fL (7.4-10.4) 07/15/24 06:51
Abs Immat Gran (auto) 0.0 10^3/uL (0-0.05) 06/20/24 18:13
Absolute Neuts (auto) 5.2 10^3/uL (1.4-6.5) 06/20/24 18:13
Absolute Lymphs (auto) 0.9 10^3/uL (1.2-3.4) L 06/20/24 18:13
Absolute Monos (auto) 0.6 10^3/uL (0.1-0.6) 06/20/24 18:13
Absolute Eos (auto) 0.2 10^3/uL (0-0.7) 06/20/24 18:13
Absolute Basos (auto) 0.0 10^3/uL (0-0.2) 06/20/24 18:13
CBC Comment Cancelled 07/11/24 06:00
Immature Gran % 0.1 % (0-0.5) 06/20/24 18:13
Neutrophils % 76.1 % (42.2-75.2) H 06/20/24 18:13
Lymphocytes % 12.6 % (20.5-51.1) L 06/20/24 18:13
Monocytes % 8.1 % (1.7-9.3) 06/20/24 18:13
Eosinophils % 2.5 % (0-6) 06/20/24 18:13
Basophils % 0.6 % (0-2) 06/20/24 18:13
Nucleated RBC % 0 % (-) 06/20/24 18:13
APTT 74.0 Sec (23.4-35.0) H 06/24/24 03:32
pH 7.43 (7.35-7.45) 06/25/24 13:10
pCO2 49 mmHg (35-48) H 06/25/24 13:10
pO2 141 mmHg (83-108) H 06/25/24 13:10
HCO3 32.5 mmol/L (21-28) H 06/25/24 13:10
Base Excess 7.4 mmol/L 06/25/24 13:10
ABG O2 Sat (Measured) 99.4 % (94-98) H 06/25/24 13:10
Sodium 131 mMOL/L (136-145) L 06/23/24 23:38
Potassium 3.9 mMOL/L (3.5-5.1) 06/23/24 23:38
O2 Delivery Level 06/25/24 13:10
Sodium 135 mmol/L (135-145) 07/15/24 06:51
Potassium 4.5 mmol/L (3.5-5.1) 07/15/24 06:51
Chloride 96 mmol/L (98-107) L 07/15/24 06:51
Carbon Dioxide 28 mmol/L (22-30) 07/15/24 06:51
BUN 69 mg/dl (9-20) H 07/15/24 06:51
Creatinine 4.0 mg/dL (0.7-1.3) H 07/15/24 06:51
Estimated Creat Clear 16 ml/min 07/15/24 06:51
eGFR 15.53 07/15/24 06:51
Glucose 116 mg/dl (70-99) H 07/15/24 06:51
Lactic Acid 0.8 mmol/L (0.7-2.0) 06/20/24 20:17
Calcium 10.6 mg/dl (8.4-10.2) H 07/15/24 06:51
Ionized Calcium 1.63 mMOL/L (1.15-1.33) H* 06/29/24 03:05
Phosphorus 2.5 mg/dl (2.5-4.5) 06/22/24 12:03
Magnesium 2.7 mg/dl (1.6-2.3) H 07/15/24 06:51
Total Bilirubin 0.5 mg/dl (0.2-1.3) 06/25/24 04:13
AST 38 U/L (17-59) 06/25/24 04:13
ALT 43 U/L (0-50) 06/25/24 04:13
Alkaline Phosphatase 126 U/L (38-126) 06/25/24 04:13
Lactate Dehydrogenase 112 U/L (120-246) L 06/29/24 03:05
Troponin I 8.010 ng/ml H* 06/22/24 12:03
Awb-I-Oqvquxgpofp Pept > 01384 pg/ml 06/20/24 18:13
Total Protein 5.2 g/dl (6.3-8.2) L 06/29/24 03:05
Tot Protein (send out) 5.5 g/dL (6.3-8.2) L 06/22/24 23:45
Albumin 2.3 g/dl (3.5-5.0) L 06/25/24 04:13
Albumin (PEP) 2.65 g/dL (3.75-5.01) L 06/22/24 23:45
Geeki-3-Zcfllzcgx 0.49 g/dL (0.19-0.46) H 06/22/24 23:45
Kgutc-3-Lpjpyqmzt 0.86 g/dL (0.48-1.05) 06/22/24 23:45
Beta Globulins 0.66 g/dL (0.48-1.10) 06/22/24 23:45
Gamma Globulins 0.95 g/dL (0.62-1.51) 06/22/24 23:45
Ser Monoclonl Protein Not applicable g/dL (<=0.00) 06/22/24 23:45
Serum PEP EER See note 06/22/24 23:45
Angiotensin Convert Enz 26 U/L (16-85) 06/22/24 23:45
Vitamin D 25-Hydroxy 48.0 ng/mL (30-80) 06/22/24 12:03
Vit D 1,25-Dihydroxy 20.3 pg/mL (19.9-79.3) 06/22/24 23:45
TSH 4.03 uIU/ml (0.47-4.68) 06/21/24 02:39
PTH Intact 1022 pg/ml (13.6-85.8) H 06/22/24 14:58
PTH Related Peptide 5.4 pmol/L (0.0-2.3) H 06/24/24 03:32
Serum Immunofix Reflex Not done 06/22/24 23:45
Fluid pH 7.44 06/29/24 08:24
Fluid WBC 292 /CUMM 07/08/24 15:21
Fluid Mononuclear Cell 76.7 % 07/08/24 15:21
Fl Polymorphonucl Cell 23.3 % 07/08/24 15:21
Fluid Other Cells Not Reportable 07/08/24 15:21
Fluid Diff Path Review Not Reportable 07/08/24 15:21
Fluid Glucose 84 mg/dl 07/08/24 15:21
Fluid Total Protein 3.2 g/dl 07/08/24 15:21
Fluid LDH 87 U/L 07/08/24 15:21
Fluid Amylase < 30 U/L 06/21/24 12:51
Fluid Triglycerides < 30 mg/dl 06/21/24 12:51
MISAEL & SPEP Interp See note 06/22/24 23:45
Hep Bs Antigen Negative (Negative) 07/10/24 08:18
Hep Bs Antibody Indeterminate 07/10/24 08:18
Hep B Core Total Ab Negative (Negative) 07/10/24 08:18
Hepatitis C Antibody Negative (Negative) 07/10/24 08:18
SARS-CoV-2 Antigen Negative (Negative) 06/20/24 19:36
POC Glucose 127 mg/dl (70-99) H 07/15/24 06:59
Blood Type A POS 06/23/24 10:59
Blood Type Confirm A POS 06/23/24 11:32
Antibody Screen Negative (Negative) 06/23/24 10:59
Crossmatch IS Only See Detail 06/23/24 10:59
�
Diagnostic Results:�as per HPI�
Chest x-ray 07/15/24
Right internal jugular central venous catheter with tip overlying right atrium is unchanged. There is right upper extremity midline catheter with tip overlying the arm, also unchanged. There is small to moderate left pleural effusion with adjacent
atelectasis. Posterior right costophrenic sulcus is obscured and there is probably minimal right effusion. There is vascular congestion. There is some bilateral increased interstitial opacity probably related to interstitial edema. Small amount of
airspace opacity over the right lower lung and left upper lung which may be related to alveolar edema. No pneumothorax. Marked cardiomegaly is unchanged. Mediastinal silhouette within normal limits. No acute osseous abnormality is seen. Chronic
posttraumatic deformity proximal right humerus. There are some degenerative changes of the thoracic spine, not well seen on this examination.
Chest ultrasound- 07/13/2024
Limited targeted ultrasound evaluation of the left chest was performed. Images show a small/moderate left-sided pleural effusion.
Thyroid Ultrasound- 06/25/24
1. No discrete thyroid nodules.
2. A hypoechoic mass posterior to left thyroid lobe measuring up to 3.8 cm may reflect parathyroid adenoma or enlarged lymph nodes.
�
Assessment: 68-year-old male with ADL ,ambulatory dysfunction associated with complex medical history of cva, PEG tub dependence, CHF, ESRD on HD, admitted for shortness of breath found to have recurrent pleural effusions requiring multiple
thoracentesis and acute on chronic CHF
�
Plan�
PT/OT to increase independence with ADLs, improve balance, coordination, endurance, strength, mobility, community reintegration, decreased burden of care on others and family education.�
Debility: Would benefit from continued PT/OT of 1-2 hours at a correction facility
Recurrent pleural effusions� likely secondary to underlying CHF and ESRD. S/P right-sided and left thoracentesis.
H/O CVA/Left/hemiparesis: High risk for falls and sliding out of chair/bed. Safety reinforced.�
- Avoid using affected arm to help lift or pull patient as this will cause trauma to the shoulder.
Dysphagia�tube feeding
Acute hypoxic respiratory failure�was ventilator dependent: Episode of mucous plugging with respiratory arrest. Improved after thoracentesis-
HTN: continue medication, monitor closely�
HLD: Rosuvastatin 20 mg 2 every afternoon
Coronary artery disease: s/p R CEA. Aspirin, statin, beta-dany�
NSTEMI: managed conservatively. Competed heparin drip. Echocardiogram- EF 50 to 55%.� Aspirin, statin, BP control.�
Acute on chronic CHF: Echo: LVEF 50-55% %. volume overload managed by HD
Hypercalcemia secondary to parathyroid adenoma and hyperparathyroidism: secondary to renal dysfunction
- vit D deficiency
- on cinacalcit
- CT CAP: enlarged parathyroid
- thyroid us: parathyroid adenoma
- pamidronate x1
- surgery consulted - agreeable to perform when medically stable
Anemia of chronic disease- transfused 2 unit pRBCs. Hgb 9.7 as of 07/16
ESRD: on MWF HD-.Nephrology follows.
Psych/depression: Psychology consult.� Alprazolam 0.25 mg to Q8 as needed
Skin: monitor for pressure sores/rashes/lesions.�
Pain: acetaminophen or oxycodone as needed.�
Bowel: MiraLAX grams tube daily.� Bisacodyl 10 mg rectal as needed
Bladder: Time void, PVRs, PRN straight cath.�
GI Prophylaxis: Lansoprazole 15 mg tube daily
DVT Prophylaxis: Heparin 5000 unit SC every 12
Pulmonary: Incentive spirometry�
Safety: Continue to reinforce assistance with all transfers.�
Code Status:�Limited DNR�
�
Discharge Destination:� SNF
�
�
Attending note:
Patient seen by me this afternoon in his room. I discussed with Marisabel Apple PA-C and agree with above note, examination and plan and I participated in the medical decision making process. Patient with significant cardiopulmonary dysfunction with
pleural effusions/CHF, and severe deconditioning. He cannot tolerate much activity currently and even very limited tolerance of bedside therapy with attempts at standing or mobility with PT/OT. He would not be an acute rehabilitation candidate at
this time with being unable to participate in 3 hours of therapy daily given his current cardiac/pulmonary state. Would likely do better with jail or SNF level care where he could potentially trial 1 hour or even 2 hours a day to build
strength and endurance. If able to participate more while in SNF level care, then could consider upgrade to acute rehab at that time. Continue current bedside therapies for now.
Thank you for allowing me to care for your patient. Please contact me with any questions or concerns.
[2024-07-16] MEDS: HEPARIN 5000 UNITS SC ×2 (09:11→19:55)
[2024-07-16] MEDS: ROBITUSSIN 200 MG PO ×2 (09:12→18:18)
[2024-07-16] MEDS: LOW STRENGTH ASPIRIN 81 MG TUBE (09:12)
[2024-07-16] MEDS: MIRALAX TUBE (09:12)
[2024-07-16] MEDS: SENSIPAR 120 MG TUBE (09:12)
[2024-07-16 09:15] LABS: Hematocrit 29.6 % (39.0-52.0); Hemoglobin 9.7 g/dL (13.0-18.0); Mean Corp Hgb Conc. 32.8 g/dL (33.0-37.0); Mean Corpuscular Hgb 29.8 pg (27.0-31.0); Mean Corpuscular Volume 90.8 fL (80.0-94.0); Mean Platelet Volume 8.3 fL (7.4-10.4); Platelet Count 340 10^3/uL (130-400); Red Blood Cell Count 3.26 10^6/uL (4.70-6.10); Red Cell Dist. Width 15.9 % (11.5-14.5); White Blood Cell Count 8.7 10^3/uL (4.8-10.8)
[2024-07-16 09:18] LABS: Blood Urea Nitrogen 47 mg/dl (9-20); Calcium 10.4 mg/dl (8.4-10.2); Carbon Dioxide 29 mmol/L (22-30); Chloride 98 mmol/L (98-107); Estimated Creatinine Clearance 23 ml/min; Glucose 96 mg/dl (70-99); Magnesium 2.5 mg/dl (1.6-2.3); Potassium 4.2 mmol/L (3.5-5.1); Sodium 136 mmol/L (135-145); eGFR 24.89
[2024-07-16] MEDS: WELLBUTRIN REGULAR RELEASE 150 MG TUBE ×2 (09:23→19:55)
[2024-07-16] MEDS: PREVACID 15 MG TUBE (09:23)
[2024-07-16] MEDS: SANTYL OINTMENT 1 APPLIC TOPICAL (09:23)
[2024-07-16 11:26] VITALS: BP 162/93
--- NOTE | 2024-07-16 12:41 | PTCARENOTE ---
Pt vomitted while cooughing. He reports that he cough to clear his throat and that sometimes he coughs so hard that he vomits. He was continuing to cough and appears to have aspirated some of the vomit. Education was done explaining the risk of
pneumonia from that. Checked tube feed residual and got only 5ml residual.
[2024-07-16 13:06] VITALS: BP 130/71; PULSE 78; O2SAT 94
--- NOTE | 2024-07-16 13:15 | WOUNDNOTE ---
PENIS TIP (UNDERSIDE)
[2024-07-16] MEDS: ROBITUSSIN PO ×2 (13:17→21:33)
--- NOTE | 2024-07-16 13:24 | WOUNDNOTE ---
[facility] RN Note: Patient's coccyx ulcer looks smaller that the last photo. He has a dermal ulcer with local redness in the underside of his penis could be r/t stool incontinence. Patient is on a [employer] air bed. Air chair cushion given. R heel with 2
small scabbed abrasions. Protective heel foams applied. Coccyx dressing changed. A+D ointment applied to penis ulcer. Heels off bed with pillow. Updated Dr. Faria who approved updating wound care and order Bactroban ointment bid for penis ulcer.
Discussed with RN Will.
--- NOTE | 2024-07-16 13:49 | CM ---
Patient seen at bedside with physician today on . Patient seen by Shane MCDUFFIE and CM discussed options for patient regarding level of care. Patient for possible further procedure per physician. CM will update patient daughter and continue to send
referrals to SNF vs Acute rehab. CM will continue to follow for discharge planning needs.
Plan; SNF vs Acute Rehab; continue to send referrals
--- NOTE | 2024-07-16 13:54 | W.PN.NEPH.PH ---
Today's Communication / Plan
-
HD tomorrow
Assessment/Plan
-
Impression:
ESRD MWF
Hypoxia/left lung atelectasis versus pneumonia
Large left pleural effusion s/p thoracentesis 06/21
CHF
Anemia
Hypertension hx
Hyponatremia
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
Hyperphosphatemia
PEG
Non-ST elevation [place]
History of stroke with subsequent left hemiparesis dysarthria and dysphagia
Tunneled right HD IJ catheter
Chronic impacted right proximal humerus fracture
hypercalcemia
Plan:
Sensipar 120mg daily also using 2 Ca bath re: hypercalcemia
HD tomorrow
he is off O2 and no plan of intervention per pulm
cont TF, wts relatively stable
potential PTX next saturday
-
-
Date of Service: July 16, 2024
CC / HPI / ROS
-
Chief Complaint:
ESRD
History of Present Illness:
hemodynamically stable
Hemodialysis on Saturday schedule
tolerated HD yesterday
vomited this am TF
calcium slightly high despite sensipar
Review of Systems:
No chest pain or shortness of breath
No fever
Labs
-
Labs:
WBC 8.7 10^3/uL (4.8-10.8) 07/16/24 08:43
RBC 3.26 10^6/uL (4.70-6.10) L 07/16/24 08:43
Hgb 9.7 g/dL (13.0-18.0) L 07/16/24 08:43
Hct 29.6 % (39.0-52.0) L 07/16/24 08:43
Plt Count 340 10^3/uL (130-400) 07/16/24 08:43
Sodium 136 mmol/L (135-145) 07/16/24 08:43
Potassium 4.2 mmol/L (3.5-5.1) 07/16/24 08:43
Chloride 98 mmol/L (98-107) 07/16/24 08:43
Carbon Dioxide 29 mmol/L (22-30) 07/16/24 08:43
BUN 47 mg/dl (9-20) H 07/16/24 08:43
Creatinine 2.7 mg/dL (0.7-1.3) H 07/16/24 08:43
eGFR 24.89 07/16/24 08:43
Glucose 96 mg/dl (70-99) 07/16/24 08:43
Calcium 10.4 mg/dl (8.4-10.2) H 07/16/24 08:43
Phosphorus 2.5 mg/dl (2.5-4.5) 06/22/24 12:03
Hud-V-Ssktwdalddv Pept > 06757 pg/ml 06/20/24 18:13
Albumin 2.3 g/dl (3.5-5.0) L 06/25/24 04:13
Physical Exam
-
Vital Signs:
Vital Signs
Temp Pulse Resp BP Pulse Ox
98.5 F 76 18 162/93 96
07/16/24 11:26 07/16/24 11:26 07/16/24 11:26 07/16/24 11:26 07/16/24 11:26
Cardiovascular:: Regular rate and rhythm
Respiratory:: Bilateral: Coarse
Lung Excursion:: Normal
Abdomen:: Nontender and Soft
Bowel Sounds:: Normal
Extremity Edema:: None: Bilateral:
[2024-07-16 15:06] VITALS: BP 166/94
[2024-07-16] MEDS: COZAAR 25 MG TUBE (18:17)
[2024-07-16] MEDS: CRESTOR 20 MG TUBE (18:19)
[2024-07-16 19:19] VITALS: BP 174/105
[2024-07-16] MEDS: DUONEB INH (19:51)
[2024-07-16] MEDS: BACTROBAN 2% OINTMENT 1 APPLIC TOPICAL (19:55)
[2024-07-16] MEDS: FOLVITE 2 MG TUBE (21:20)
[2024-07-16] MEDS: MELATONIN 5 MG TUBE (21:21)
[2024-07-16 23:30] VITALS: BP 176/94
[2024-07-17] VITALS (8 sets, daily range): BP systolic 104–176; BP diastolic 44–94; PULSE 75; O2SAT 98; BMI 18.8
[2024-07-17] MEDS: DUONEB INH (06:18)
--- NOTE | 2024-07-17 07:07 | W.PN.HOSP.TC ---
Addendum entered and electronically signed by Isabella Marques MD 07/17/24 12:17:
I saw and evaluated the patient independently. I reviewed the resident�s note and agree with findings and plan as documented by Dr. Faria.
GENERAL: chronically ill appearing male cachectic
HEENT: NC/AT--O2 NC off
HEART: regular rate and rhythm, +S1, +S2, tachy
LUNGS : clear to auscultation bilaterally--decreased BS left base
ABDOM: soft, nontender, nondistended, + bowel sounds
EXT: no cyanosis, clubbing, or edema
NEUROLOGIC: nonfocal
Left mainstem bronchus obstruction, recurrent aspiration -patient have increased secretion and potential for recurrent bronchus obstruction and related complication-- pulmonary toileting--aspiration risk
Leukocytosis--WBC increased to 16K but pt was noted to have been vomiting tube feeds yesterday 07/16--no fevers, no cough--likely aspiration pneumonitis--hold ABX for now
Recurrent pleural effusion -patient underwent right-sided thoracentesis of 1.1 L. And left-sided thoracentesis of 1.45 L followed by 1.75 L and 750ml. A Pleurx catheter was planned although insurance approval did not come through. Hopefully,
volume can be controlled with dialysis - CXR post HD reviewed--pleural effusion present by my review--await formal read--may need another tap
Acute hypoxic respiratory failure, ventilator dependent respiratory failure, s/p PEA/cardiac arrest -patient had episode of mucous plugging with respiratory arrest. Patient was bradycardic at that time and likely added to the problem. Patient
require ventilator support and was able to be extubated--off O2-- Dyspnea has improved with x3 time left-sided thoracentesis. Remains at high risk of decompensation and further respiratory problems.
Hypercalcemia/parathyroid adenoma/secondary hyperparathyroidism -patient has significant hypercalcemia and likely secondary to ESRD/secondary hyperparathyroidism and parathyroid adenoma found on imaging. Parathyroid hormone close to 1000. Patient
has been maximized on Cinacalcet and also has been provided calcitonin/bisphosphonates. In light of refractory nature of hypercalcemia surgery has been consulted, patient is a candidate for minimally invasive parathyroidectomy once pulmonary status
stabilizes--informed by renal that Dr. Umer Stroud can do surgery for parathyroid this coming Friday 07/21 as long as pt/family agreeable--pt agreeable
NSTEMI -patient was managed conservatively and has finished few days of heparin drip therapy. Echocardiogram showing ejection fraction of 50 to 55%.
Diastolic heart failure exacerbation -patient volume status being managed by hemodialysis, patient makes some urine.
Hx CVA w L hemiparesis, dysarthria, dysphagia-- cont tube feeding
ESRD on MWF HD--apprec renal
anemia of chronic disease- transfused 2 unit pRBCs
Severe calcific atherosclerotic plaque in the coronary arteries on CT Chest
Right chronically impacted humeral neck fracture -imaging finding on CT chest, needs to be verified with previous records
protein calorie malnutrition--cachectic, stage 2 pressure wound--on tube feeds--feels at least moderate if not severe
sacrum stage 2 pressure injury--cont local wound care---unclear to me if POA
Hyponatremia
Essential Hypertension
Hyperlipidemia
Carotid artery disease s/p R CEA
BPH
Depression
code status--DNI--wants chest compressions
disposition planning--apprec PM&R--candidate for SNF
Original Note:
Today's Communication/Plan
-
.
Assessment / Plan
Assessment / Plan
L mainstem bronchus obstruction secondary to secretions
B/l pleural effusions likely secondary to underlying CHF and ESRD
- aspiration risk
- hx CVA/peg tube on tube feeding
- CPT
- resp cx: Pseudomonas, completed 7 days abx
- cont flutter valve
- L thoracentesis #1: 1450 cc straw-colored pleural fluid
- R thoracentesis #1: 1100 cc of clear yellow pleural fluid.
- L thoracentesis #2: 1750 cc of serosanguineous pleural fluid.
- L thoracentesis #3: 750 cc of clear yellow pleural fluid.
- L pleural effusion stable in size - mild/moderate
Leukocytosis
- likely secondary to aspiration pneumonitis vs pneumonia
- monitor
- monitor for fevers
- hold abx for now
NSTEMI
CHF
- trop max 10.7
- was on a heparin drip
- Echo: LVEF 50-55%
- ASA, statin
- hold BB due to recent severe bradycardia
Acute on chronic HFpEF
- proBNP elevated
- echo: LVEF 50-55%
- volume overload managed by HD
Hypercalcemia secondary to parathyroid adenoma and hyperparathyroidism secondary to renal dysfunction
- vit D deficiency
- on cinacalcit
- CT CAP: enlarged parathyroid
- thyroid us: parathyroid adenoma
- pamidronate x1
- surgery consulted - agreeable to perform when medically stable - possibly Saturday
Hx CVA w L hemiparesis, dysarthria, dysphagia
- cont tube feeding
- PT/OT
- PMR consult
ESRD on MWF HD
anemia of chronic disease
- HD due 07/08
- transfused 2 unit pRBCs
Severe calcific atherosclerotic plaque in the coronary arteries on CT Chest
Right chronically impacted humeral neck fracture -imaging finding on CT chest, needs to be verified with previous records
Hyponatremia
Recent Flu
Benign Hypertension
Hyperlipidemia
Carotid artery disease s/p R CEA
BPH
Depression
Diet: tube feeding
DVT Prophylaxis: Heparin SUBQ
Code Status: limited - DNI only
Anticipated Discharge: > 48 hours
Subjective/Interval History
-
Date of Service: July 17, 2024
Yesterday, coughed so hard he vomited and appeared to have aspirated some of his vomit. Denies dyspnea, cough, CP, fever. HD today.
Objective Data
-
Labs:
Laboratory Results
07/17/24
06:00
WBC Pending
Hgb Pending
Hct Pending
Plt Count Pending
Sodium Pending
Potassium Pending
Chloride Pending
Carbon Dioxide Pending
BUN Pending
Creatinine Pending
Glucose Pending
Calcium Pending
Vital Signs:
Vital Signs
Temp Pulse Resp BP Pulse Ox
98.4 F 81 14 138/81 95
07/16/24 23:30 07/17/24 06:15 07/16/24 23:30 07/17/24 06:15 07/17/24 06:15
I&O
07/16/24 07/17/24 07/18/24
06:59 06:59 06:59
Intake Total 1000 / 1000
Balance 1000 / 1000
Review of Systems
-
History Source: Patient
Constitutional: Reports No Symptoms
Respiratory: Reports No Symptoms
Cardiac: Reports No Symptoms
Abdomen/GI: Reports No Symptoms
Musculoskeletal: Reports No Symptoms
Skin: Reports No Symptoms
Neuro: Reports No Symptoms
Physical Exam
-
General: Well Developed and Well Nourished
HEENT: Normocephalic and Atraumatic
Respiratory: Clear to Auscultation
Cardiac: Regular Rhythm and S1/S2
GI: Soft, Nontender, Nondistended and Normal Bowel Sounds
Musculoskeletal: No Clubbing, No Cyanosis and No Edema
Skin: Warm and Dry
Neuro: Awake and Alert
Psych: Calm
[2024-07-17] MEDS: BACTROBAN 2% OINTMENT 1 APPLIC TOPICAL ×2 (08:05→19:34)
[2024-07-17] MEDS: HEPARIN 5000 UNITS SC ×2 (08:08→19:34)
[2024-07-17 08:34] LABS: Hematocrit 28.7 % (39.0-52.0); Hemoglobin 9.4 g/dL (13.0-18.0); Mean Corp Hgb Conc. 32.8 g/dL (33.0-37.0); Mean Corpuscular Hgb 29.6 pg (27.0-31.0); Mean Corpuscular Volume 90.3 fL (80.0-94.0); Mean Platelet Volume 8.4 fL (7.4-10.4); Platelet Count 322 10^3/uL (130-400); Red Blood Cell Count 3.18 10^6/uL (4.70-6.10); Red Cell Dist. Width 15.9 % (11.5-14.5); White Blood Cell Count 16.4 10^3/uL (4.8-10.8)
[2024-07-17] MEDS: FLEXBUMIN 25% FOR HEMODIALYSIS 12.5 GRAMS IV (09:00)
[2024-07-17] MEDS: MANNITOL 25% 12.5 GRAMS IV (09:06)
[2024-07-17] MEDS: RETACRIT 6000 UNITS IV (09:07)
[2024-07-17 09:09] LABS: Blood Urea Nitrogen 70 mg/dl (9-20); Calcium 10.5 mg/dl (8.4-10.2); Carbon Dioxide 27 mmol/L (22-30); Chloride 95 mmol/L (98-107); Estimated Creatinine Clearance 17 ml/min; Glucose 121 mg/dl (70-99); Magnesium 2.6 mg/dl (1.6-2.3); Potassium 4.4 mmol/L (3.5-5.1); Sodium 133 mmol/L (135-145); eGFR 17.63
--- NOTE | 2024-07-17 10:28 | W.PN.NEPH.HD ---
Assessment
-
pt seen during HD
vitals stable
hypercalcemia: suri still at mid 10 range on low suri bath and on high dose of sensipar, PTH 1022, possible adenoma noted on US
highly suggest tertiary hyperparathyroidism -tentative plan of surg on Saturday next
CVC functions well
Progress Note - Hemodialysis
-
Date of Service: July 17, 2024
Duration: 30 minutes and 3 hours
Potassium Bath: 3
Calcium Bath: 2.5
Opti-Dialyzer: 160
Ultrafiltration: Other (2kg)
Blood Flow: 350
Dialysate Flow: 600
Heparin: no
EPO: 6000
[2024-07-17] MEDS: DUONEB 3 ML INH ×3 (10:53→19:51)
[2024-07-17] MEDS: HEPARIN 3600 UNITS INTRACATH (11:05)
[2024-07-17] MEDS: MIRALAX TUBE (13:06)
[2024-07-17] MEDS: ROBITUSSIN TUBE (13:07)
[2024-07-17] MEDS: SENSIPAR 120 MG TUBE (13:08)
[2024-07-17] MEDS: LOW STRENGTH ASPIRIN 81 MG TUBE (13:13)
[2024-07-17] MEDS: ROBITUSSIN 200 MG TUBE ×3 (13:14→21:39)
[2024-07-17] MEDS: PREVACID 15 MG TUBE (13:19)
[2024-07-17] MEDS: WELLBUTRIN REGULAR RELEASE 150 MG TUBE ×2 (13:20→19:34)
[2024-07-17] MEDS: SANTYL OINTMENT 1 APPLIC TOPICAL (13:24)
--- NOTE | 2024-07-17 14:11 | W.PN.SURGUPD ---
Surgical Update
Surgical Update
I had a long discussion with him regarding hyperparathyroidism and his treatment options. Given the positive preoperative localizing studies, I informed him that he is a good candidate for a minimally invasive parathyroidectomy. The nature and
purpose of the operation, the risks involved, and the potential complications and side effects were fully explained. He would like to proceed with parathyroidectomy. We will proceed with surgery on . We will preop and consent.
[2024-07-17] MEDS: CRESTOR 20 MG TUBE (18:44)
[2024-07-17] MEDS: ROBITUSSIN PO (20:35)
[2024-07-17] MEDS: MELATONIN 5 MG TUBE (21:39)
[2024-07-17] MEDS: FOLVITE 2 MG TUBE (21:39)
[2024-07-18] VITALS (8 sets, daily range): BP systolic 132–154; BP diastolic 85–98; BMI 19.0
[2024-07-18 07:11] LABS: Hematocrit 28.8 % (39.0-52.0); Hemoglobin 9.4 g/dL (13.0-18.0); Mean Corp Hgb Conc. 32.6 g/dL (33.0-37.0); Mean Corpuscular Hgb 29.3 pg (27.0-31.0); Mean Corpuscular Volume 89.7 fL (80.0-94.0); Mean Platelet Volume 8.6 fL (7.4-10.4); Platelet Count 323 10^3/uL (130-400); Red Blood Cell Count 3.21 10^6/uL (4.70-6.10); Red Cell Dist. Width 15.7 % (11.5-14.5); White Blood Cell Count 10.6 10^3/uL (4.8-10.8)
--- NOTE | 2024-07-18 07:36 | W.PN.HOSP.TC ---
Addendum entered and electronically signed by Isabella Marques MD 07/18/24 14:33:
I saw and evaluated the patient independently. I reviewed the resident�s note and agree with findings and plan as documented by Dr. Faria.
GENERAL: chronically ill appearing male cachectic
HEENT: NC/AT--O2 NC off
HEART: regular rate and rhythm, +S1, +S2, tachy
LUNGS : clear to auscultation bilaterally--decreased BS left base
ABDOM: soft, nontender, nondistended, + bowel sounds
EXT: no cyanosis, clubbing, or edema
NEUROLOGIC: nonfocal
Left mainstem bronchus obstruction, recurrent aspiration -patient have increased secretion and potential for recurrent bronchus obstruction and related complication-- pulmonary toileting--aspiration risk
Leukocytosis--WBC increased to 16K but pt was noted to have been vomiting tube feeds yesterday 07/16--no fevers, no cough--likely aspiration pneumonitis--hold ABX for now--WBC returned to normal limits
Recurrent pleural effusion -patient underwent right-sided thoracentesis of 1.1 L. And left-sided thoracentesis of 1.45 L followed by 1.75 L and 750ml. A Pleurx catheter was planned although insurance approval did not come through. Hopefully,
volume can be controlled with dialysis - CXR post HD reviewed--small to mod effusion--has not needed further thoracentesis
Acute hypoxic respiratory failure, ventilator dependent respiratory failure, s/p PEA/cardiac arrest -patient had episode of mucous plugging with respiratory arrest. Patient was bradycardic at that time and likely added to the problem. Patient
require ventilator support and was able to be extubated--off O2-- Dyspnea has improved with x3 time left-sided thoracentesis. Remains at high risk of decompensation and further respiratory problems.
Hypercalcemia/parathyroid adenoma/secondary hyperparathyroidism -patient has significant hypercalcemia and likely secondary to ESRD/secondary hyperparathyroidism and parathyroid adenoma found on imaging. Parathyroid hormone close to 1000. Patient
has been maximized on Cinacalcet and also has been provided calcitonin/bisphosphonates. In light of refractory nature of hypercalcemia surgery has been consulted, patient is a candidate for minimally invasive parathyroidectomy once pulmonary status
stabilizes-- Dr. Umer Stroud can do surgery for parathyroid this coming Friday 07/21--pt agreeable
NSTEMI -patient was managed conservatively and has finished few days of heparin drip therapy. Echocardiogram showing ejection fraction of 50 to 55%.
Diastolic heart failure exacerbation -patient volume status being managed by hemodialysis, patient makes some urine.
Hx CVA w L hemiparesis, dysarthria, dysphagia-- cont tube feeding
ESRD on MWF HD--apprec renal
anemia of chronic disease- transfused 2 unit pRBCs
Severe calcific atherosclerotic plaque in the coronary arteries on CT Chest
Right chronically impacted humeral neck fracture -imaging finding on CT chest, needs to be verified with previous records
protein calorie malnutrition--cachectic, stage 2 pressure wound--on tube feeds--feels at least moderate if not severe
sacrum stage 2 pressure injury--cont local wound care---unclear to me if POA
Hyponatremia
Essential Hypertension
Hyperlipidemia
Carotid artery disease s/p R CEA
BPH
Depression
code status--DNI--wants chest compressions
disposition planning--apprec PM&R--candidate for SNF
Original Note:
Today's Communication/Plan
-
- parathyroidectomy tentatively Saturday
Assessment / Plan
Assessment / Plan
L mainstem bronchus obstruction secondary to secretions
B/l pleural effusions likely secondary to underlying CHF and ESRD
- aspiration risk
- hx CVA/peg tube on tube feeding
- CPT
- resp cx: Pseudomonas, completed 7 days abx
- cont flutter valve
- L thoracentesis #1: 1450 cc straw-colored pleural fluid
- R thoracentesis #1: 1100 cc of clear yellow pleural fluid.
- L thoracentesis #2: 1750 cc of serosanguineous pleural fluid.
- L thoracentesis #3: 750 cc of clear yellow pleural fluid.
- L pleural effusion stable in size - mild/moderate
Leukocytosis
- likely secondary to aspiration pneumonitis vs pneumonia
- monitor
- monitor for fevers
- hold abx for now
NSTEMI
CHF
- trop max 10.7
- was on a heparin drip
- Echo: LVEF 50-55%
- ASA, statin
- hold BB due to recent severe bradycardia
Acute on chronic HFpEF
- proBNP elevated
- echo: LVEF 50-55%
- volume overload managed by HD
Hypercalcemia secondary to parathyroid adenoma and hyperparathyroidism secondary to renal dysfunction
- vit D deficiency
- on cinacalcit
- CT CAP: enlarged parathyroid
- thyroid us: parathyroid adenoma
- pamidronate x1
- surgery consulted - agreeable to perform when medically stable - possibly Saturday
Hx CVA w L hemiparesis, dysarthria, dysphagia
- cont tube feeding
- PT/OT
- PMR consult
ESRD on MWF HD
anemia of chronic disease
- HD due 07/08
- transfused 2 unit pRBCs
Severe calcific atherosclerotic plaque in the coronary arteries on CT Chest
Right chronically impacted humeral neck fracture -imaging finding on CT chest, needs to be verified with previous records
Hyponatremia
Recent Flu
Benign Hypertension
Hyperlipidemia
Carotid artery disease s/p R CEA
BPH
Depression
Diet: tube feeding
DVT Prophylaxis: Heparin SUBQ
Code Status: limited - DNI only
Anticipated Discharge: > 48 hours
Subjective/Interval History
-
Date of Service: July 18, 2024
No acute overnight events
Objective Data
-
Labs:
Laboratory Results
07/18/24
06:14
WBC 10.6
Hgb 9.4 L
Hct 28.8 L
Plt Count 323
Sodium Pending
Potassium Pending
Chloride Pending
Carbon Dioxide Pending
BUN Pending
Creatinine Pending
Glucose Pending
Calcium Pending
Vital Signs:
Vital Signs
Temp Pulse Resp BP Pulse Ox
97.9 F 93 20 138/87 95
07/18/24 03:07 07/18/24 03:07 07/18/24 03:07 07/18/24 03:07 07/18/24 03:07
Review of Systems
-
History Source: Patient
Constitutional: Reports No Symptoms
Respiratory: Reports No Symptoms
Cardiac: Reports No Symptoms
Abdomen/GI: Reports Nausea
Musculoskeletal: Reports No Symptoms
Physical Exam
-
General: Cachectic
HEENT: Normocephalic and Atraumatic
Respiratory: Clear to Auscultation
Cardiac: Regular Rhythm and S1/S2
GI: Soft, Nontender, Nondistended and Normal Bowel Sounds
Musculoskeletal: No Clubbing, No Cyanosis and No Edema
Skin: Warm and Dry
Neuro: Awake, Alert and Oriented
Psych: Calm
[2024-07-18 07:45] LABS: Blood Urea Nitrogen 42 mg/dl (9-20); Calcium 11.1 mg/dl (8.4-10.2); Carbon Dioxide 29 mmol/L (22-30); Chloride 95 mmol/L (98-107); Estimated Creatinine Clearance 25 ml/min; Glucose 111 mg/dl (70-99); Magnesium 2.4 mg/dl (1.6-2.3); Potassium 3.8 mmol/L (3.5-5.1); Sodium 134 mmol/L (135-145)
[2024-07-18] MEDS: DUONEB 3 ML INH (08:27)
[2024-07-18] MEDS: WELLBUTRIN REGULAR RELEASE 150 MG TUBE ×2 (08:53→20:36)
[2024-07-18] MEDS: HEPARIN 5000 UNITS SC ×2 (08:54→20:37)
[2024-07-18] MEDS: LOW STRENGTH ASPIRIN 81 MG TUBE (08:54)
[2024-07-18] MEDS: PREVACID 15 MG TUBE (08:54)
[2024-07-18] MEDS: MIRALAX TUBE (08:54)
[2024-07-18] MEDS: ROBITUSSIN 200 MG TUBE ×4 (09:01→20:36)
[2024-07-18] MEDS: SENSIPAR 120 MG TUBE (09:02)
[2024-07-18] MEDS: BACTROBAN 2% OINTMENT 1 APPLIC TOPICAL ×2 (10:37→20:36)
[2024-07-18] MEDS: KCL ELIXIR 40 MEQ TUBE (10:45)
--- NOTE | 2024-07-18 10:56 | W.PN.NEPH.PH ---
Today's Communication / Plan
-
HD Saturday
Assessment/Plan
-
Impression:
ESRD MWF
Hypoxia/left lung atelectasis versus pneumonia
Large left pleural effusion s/p thoracentesis 06/21
CHF
Anemia
Hypertension hx
Hyponatremia
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
Hyperphosphatemia
PEG
Non-ST elevation [place]
History of stroke with subsequent left hemiparesis dysarthria and dysphagia
Tunneled right HD IJ catheter
Chronic impacted right proximal humerus fracture
hypercalcemia
Plan:
hypercalcemia: suri still at mid 10 range on low suri bath and on high dose of sensipar 120mg, PTH 1022, possible adenoma noted on US
highly suggest tertiary hyperparathyroidism -tentative plan of surg on Saturday next
cont TF, wts relatively stable
stable hemodynamics
d/w pt
-
-
Date of Service: July 18, 2024
CC / HPI / ROS
-
Chief Complaint:
ESRD
History of Present Illness:
hemodynamically stable
Hemodialysis on Saturday schedule
calcium slightly high despite sensipar at 11.1
Review of Systems:
No chest pain or shortness of breath
No fever
Labs
-
Labs:
WBC 10.6 10^3/uL (4.8-10.8) 07/18/24 06:14
RBC 3.21 10^6/uL (4.70-6.10) L 07/18/24 06:14
Hgb 9.4 g/dL (13.0-18.0) L 07/18/24 06:14
Hct 28.8 % (39.0-52.0) L 07/18/24 06:14
Plt Count 323 10^3/uL (130-400) 07/18/24 06:14
Sodium 134 mmol/L (135-145) L 07/18/24 06:14
Potassium 3.8 mmol/L (3.5-5.1) 07/18/24 06:14
Chloride 95 mmol/L (98-107) L 07/18/24 06:14
Carbon Dioxide 29 mmol/L (22-30) 07/18/24 06:14
BUN 42 mg/dl (9-20) H 07/18/24 06:14
Creatinine 2.5 mg/dL (0.7-1.3) H 07/18/24 06:14
eGFR 27.30 07/18/24 06:14
Glucose 111 mg/dl (70-99) H 07/18/24 06:14
Calcium 11.1 mg/dl (8.4-10.2) H 07/18/24 06:14
Phosphorus 2.5 mg/dl (2.5-4.5) 06/22/24 12:03
Trp-E-Vlaepoluehm Pept > 31865 pg/ml 06/20/24 18:13
Albumin 2.3 g/dl (3.5-5.0) L 06/25/24 04:13
Physical Exam
-
Vital Signs:
Vital Signs
Temp Pulse Resp BP Pulse Ox
97.6 F 96 18 148/91 96
07/18/24 09:05 07/18/24 09:05 07/18/24 09:05 07/18/24 09:05 07/18/24 09:05
Cardiovascular:: Regular rate and rhythm
Respiratory:: Bilateral: Coarse
Lung Excursion:: Normal
Abdomen:: Nontender and Soft
Bowel Sounds:: Normal
Extremity Edema:: None: Bilateral:
Bender Catheter: No
[2024-07-18] MEDS: XANAX 0.25 MG TUBE ×2 (11:00→20:42)
[2024-07-18] MEDS: CRESTOR 20 MG TUBE (18:33)
[2024-07-18] MEDS: COZAAR 25 MG TUBE (18:34)
[2024-07-18] MEDS: MELATONIN 5 MG TUBE (20:36)
[2024-07-18] MEDS: FOLVITE 2 MG TUBE (20:36)
[2024-07-18] MEDS: TYLENOL 650 MG TUBE (20:42)
[2024-07-19] VITALS (8 sets, daily range): BP systolic 71–167; BP diastolic 81–96; BMI 19.0
--- NOTE | 2024-07-19 03:35 | PTCARENOTE ---
House provider, Marisabel Holley, notified that pt's rectal temp is 95.6. Warm blankets applied, heat in the room turned up, and fan turned off. Will reassess temperature.
--- NOTE | 2024-07-19 04:42 | PTCARENOTE ---
Pt's temp continued to drop, now 95.4 rectally. House provider notified and dov hugger ordered. Asked nursing drapery supervisor for a dov hugger, but all have been issued. More warm blankets applied, temp in the room increased to max. Pt complaining of
feeling uncomfortable with the blankets. Educated on the dangers of hypothermia. Emotional support provided.
--- NOTE | 2024-07-19 05:30 | PTCARENOTE ---
Pt requested to see RN. Upon walking into the room, found pt yelling into the TV remote to 'call my daughter' because he wants to get out of here and leave AMA. Pt taking blankets off and had turned on bedside fan. When asked what was wrong, pt
stated that he felt as if he was 'suffocating' under all the blankets. Pt insisted that the thermometers weren't working and that he wasn't hypothermic. Pt stated 'I know my body and my body isn't cold.' We attempted oral and axillary temperatures
with three different machines, none of them picking up a temp. Pt stated 'just do a rectal.' Rectal temp revealed 95.5 F. Recommended to pt to turn off the fan and keep the blankets on. House provider notified.
[2024-07-19 06:01] LABS: Hematocrit 29.5 % (39.0-52.0); Hemoglobin 9.5 g/dL (13.0-18.0); Mean Corp Hgb Conc. 32.2 g/dL (33.0-37.0); Mean Corpuscular Hgb 29.1 pg (27.0-31.0); Mean Corpuscular Volume 90.2 fL (80.0-94.0); Mean Platelet Volume 8.6 fL (7.4-10.4); Platelet Count 330 10^3/uL (130-400); Red Blood Cell Count 3.27 10^6/uL (4.70-6.10); Red Cell Dist. Width 15.9 % (11.5-14.5)
[2024-07-19 06:24] LABS: Blood Urea Nitrogen 62 mg/dl (9-20); Calcium 11.6 mg/dl (8.4-10.2); Carbon Dioxide 29 mmol/L (22-30); Chloride 93 mmol/L (98-107); Estimated Creatinine Clearance 18 ml/min; Glucose 107 mg/dl (70-99); Magnesium 2.7 mg/dl (1.6-2.3); Potassium 4.3 mmol/L (3.5-5.1); Sodium 134 mmol/L (135-145); eGFR 18.88
--- NOTE | 2024-07-19 07:05 | W.PN.HOSP.TC ---
Addendum entered and electronically signed by Isabella Marques MD 07/19/24 14:33:
I saw and evaluated the patient independently. I reviewed the resident�s note and agree with findings and plan as documented by Dr. Faria.
GENERAL: chronically ill appearing male cachectic
HEENT: NC/AT--O2 back on
HEART: regular rate and rhythm, +S1, +S2, tachy
LUNGS : clear to auscultation bilaterally--decreased BS left base--more tachypneic
ABDOM: soft, nontender, nondistended, + bowel sounds
EXT: no cyanosis, clubbing, or edema
NEUROLOGIC: nonfocal
hypothermia--patient's rectal temperature is 95--with nausea and vomiting tube feeds a few days ago, concern for developing pneumonia despite improved white blood cell count--chest x-ray shows large pleural effusion recurred, check blood
cultures--start Unasyn
Left mainstem bronchus obstruction, recurrent aspiration -patient have increased secretion and potential for recurrent bronchus obstruction and related complication-- pulmonary toileting--aspiration risk
Leukocytosis--WBC increased to 16K but pt was noted to have been vomiting tube feeds yesterday 07/16--no fevers, no cough--likely aspiration pneumonitis--WBC returned to normal limits
Recurrent pleural effusion -patient underwent right-sided thoracentesis of 1.1 L. And left-sided thoracentesis of 1.45 L followed by 1.75 L, 750ml, 1600ml. A Pleurx catheter was planned although insurance approval did not come through. Hopefully,
volume can be controlled with dialysis, if not will likely need weekly thoracentesis set up
Acute hypoxic respiratory failure, ventilator dependent respiratory failure, s/p PEA/cardiac arrest -patient had episode of mucous plugging with respiratory arrest. Patient was bradycardic at that time and likely added to the problem. Patient
require ventilator support and was able to be extubated--off O2-- Dyspnea has improved with x3 time left-sided thoracentesis. Remains at high risk of decompensation and further respiratory problems.
Hypercalcemia/parathyroid adenoma/secondary hyperparathyroidism -patient has significant hypercalcemia and likely secondary to ESRD/secondary hyperparathyroidism and parathyroid adenoma found on imaging. Parathyroid hormone close to 1000. Patient
has been maximized on Cinacalcet and also has been provided calcitonin/bisphosphonates. In light of refractory nature of hypercalcemia surgery has been consulted, patient is a candidate for minimally invasive parathyroidectomy once pulmonary status
stabilizes-- Dr. Umer Stroud can do surgery for parathyroid this coming Friday 07/21--pt agreeable
NSTEMI -patient was managed conservatively and has finished few days of heparin drip therapy. Echocardiogram showing ejection fraction of 50 to 55%.
Diastolic heart failure exacerbation -patient volume status being managed by hemodialysis, patient makes some urine.
Hx CVA w L hemiparesis, dysarthria, dysphagia-- cont tube feeding
ESRD on MWF HD--apprec renal
anemia of chronic disease- transfused 2 unit pRBCs
Severe calcific atherosclerotic plaque in the coronary arteries on CT Chest
Right chronically impacted humeral neck fracture -imaging finding on CT chest, needs to be verified with previous records
protein calorie malnutrition--cachectic, stage 2 pressure wound--on tube feeds--feels at least moderate if not severe
sacrum stage 2 pressure injury--cont local wound care---unclear to me if POA
Hyponatremia
Essential Hypertension
Hyperlipidemia
Carotid artery disease s/p R CEA
BPH
Depression
code status--DNI--wants chest compressions--patient very frustrated with the fact that his fluid has reaccumulated and needs another tap--seems frustrated by the entire medical condition--started conversation about Pleurx catheter, weekly
thoracentesis, 3 times per week dialysis, tube feedings, severe debilitation and needing rehab, upcoming surgery for parathyroidectomy and explained to patient that if he feels he cannot go on any further or does not want to keep moving forward that
hospice is a viable option. Also explained that there would be no need to make that decision immediately but that he should think about it and talk with his family. Only he can decide what he is willing to put up with and for how long regarding
his debilitation.
disposition planning--apprec PM&R--candidate for SNF
Original Note:
Today's Communication/Plan
-
- cxr
- bcx x2
- unasyn
Assessment / Plan
Assessment / Plan
L mainstem bronchus obstruction secondary to secretions
B/l pleural effusions likely secondary to underlying CHF and ESRD
- aspiration risk
- hx CVA/peg tube on tube feeding
- CPT
- resp cx: Pseudomonas, completed 7 days abx
- cont flutter valve
- L thoracentesis #1: 1450 cc straw-colored pleural fluid
- R thoracentesis #1: 1100 cc of clear yellow pleural fluid.
- L thoracentesis #2: 1750 cc of serosanguineous pleural fluid.
- L thoracentesis #3: 750 cc of clear yellow pleural fluid.
- L pleural effusion stable in size - mild/moderate
- repeat CXR + bcx x2 +unasyn for hypothermia, dyspnea, reduced breath sounds on L, in setting of witnessed aspiration
NSTEMI
CHF
- trop max 10.7
- was on a heparin drip
- Echo: LVEF 50-55%
- ASA, statin
- hold BB due to recent severe bradycardia
Acute on chronic HFpEF
- proBNP elevated
- echo: LVEF 50-55%
- volume overload managed by HD
Hypercalcemia secondary to parathyroid adenoma and hyperparathyroidism secondary to renal dysfunction
- vit D deficiency
- on cinacalcit
- CT CAP: enlarged parathyroid
- thyroid us: parathyroid adenoma
- pamidronate x1
- surgery consulted - agreeable to perform when medically stable - possibly Saturday
Hx CVA w L hemiparesis, dysarthria, dysphagia
- cont tube feeding
- PT/OT
- PMR consult
ESRD on MWF HD
anemia of chronic disease
- HD due 07/08
- transfused 2 unit pRBCs
Severe calcific atherosclerotic plaque in the coronary arteries on CT Chest
Right chronically impacted humeral neck fracture -imaging finding on CT chest, needs to be verified with previous records
Hyponatremia
Recent Flu
Benign Hypertension
Hyperlipidemia
Carotid artery disease s/p R CEA
BPH
Depression
Diet: tube feeding
DVT Prophylaxis: Heparin SUBQ
Code Status: limited - DNI only
Anticipated Discharge: > 48 hours
Subjective/Interval History
-
Date of Service: July 19, 2024
Hypothermic for several hours. Pt agitated, refusing to believe he is hypothermic and feeling as if he is suffocating under blankets. Dyspneic on RA, placed on 4L O2 via NC. Coughing up phlegm.
Objective Data
-
Labs:
Laboratory Results
07/19/24
04:29
WBC 10.0
Hgb 9.5 L
Hct 29.5 L
Plt Count 330
Sodium 134 L
Potassium 4.3
Chloride 93 L
Carbon Dioxide 29
BUN 62 H
Creatinine 3.4 H
Glucose 107 H
Calcium 11.6 H
Vital Signs:
Vital Signs
Temp Pulse Resp BP Pulse Ox
95.5 F L 68 20 154/95 94
07/19/24 05:30 07/19/24 03:48 07/19/24 03:48 07/19/24 03:48 07/19/24 04:31
I&O
07/18/24 07/19/24 07/20/24
06:59 06:59 06:59
Intake Total 2199
Output Total 0 / 0
Balance 2199
Review of Systems
-
History Source: Patient
Constitutional: Reports No Symptoms
Respiratory: Reports Cough and Trouble Breathing
Cardiac: Reports No Symptoms
Abdomen/GI: Reports No Symptoms
Musculoskeletal: Reports No Symptoms
Neuro: Reports No Symptoms
Physical Exam
-
General: Appears Chronically Ill
HEENT: Normocephalic, Atraumatic and Oxygen (4L O2 via NC)
Respiratory: Accessory Resp Muscle Use and Decreased Breath Sounds (L base)
Cardiac: Regular Rhythm and S1/S2
GI: Soft, Nontender, Nondistended and Normal Bowel Sounds
Musculoskeletal: No Clubbing, No Cyanosis and No Edema
Neuro: Awake, Alert and Oriented
[2024-07-19] MEDS: LOW STRENGTH ASPIRIN 81 MG TUBE (10:02)
[2024-07-19] MEDS: WELLBUTRIN REGULAR RELEASE 150 MG TUBE ×2 (10:03→21:00)
[2024-07-19] MEDS: PREVACID 15 MG TUBE (10:03)
[2024-07-19] MEDS: HEPARIN 5000 UNITS SC ×2 (10:04→21:00)
[2024-07-19] MEDS: ROBITUSSIN 200 MG TUBE ×4 (10:04→21:01)
[2024-07-19] MEDS: BACTROBAN 2% OINTMENT 1 APPLIC TOPICAL ×2 (10:04→21:01)
[2024-07-19] MEDS: MIRALAX TUBE (10:04)
[2024-07-19] MEDS: UNASYN IV (10:05)
[2024-07-19] MEDS: SENSIPAR 120 MG TUBE (10:07)
[2024-07-19 10:51] LABS: LDH 114 U/L (120-246); Total Protein 6.7 g/dl (6.3-8.2)
--- NOTE | 2024-07-19 12:38 | W.PN.NEPH.PH ---
Today's Communication / Plan
-
HD tomorrow
Assessment/Plan
-
Impression:
ESRD MWF
Hypoxia/left lung atelectasis versus pneumonia
Large left pleural effusion s/p thoracentesis 06/21
CHF
Anemia
Hypertension hx
Hyponatremia
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
Hyperphosphatemia
PEG
Non-ST elevation [place]
History of stroke with subsequent left hemiparesis dysarthria and dysphagia
Tunneled right HD IJ catheter
Chronic impacted right proximal humerus fracture
hypercalcemia
Plan:
hypercalcemia: suri still at 11 range on low suri bath and on high dose of sensipar 120mg, PTH 1022, possible adenoma noted on US
highly suggest tertiary hyperparathyroidism -tentative plan of surg on Saturday next week as long as resp status stable and pt agrees
recurrent plerual effusion for thoracentesis
cont TF with asp risk
stable hemodynamics
d/w pt
-
-
Date of Service: July 19, 2024
CC / HPI / ROS
-
Chief Complaint:
ESRD
History of Present Illness:
hemodynamically stable
Hemodialysis on Saturday schedule
calcium slightly high despite sensipar at 11..6
Review of Systems:
No chest pain , c.o sob today on 4lit of O2
No fever
cXR shows pleural effusion
Labs
-
Labs:
WBC 10.0 10^3/uL (4.8-10.8) 07/19/24 04:29
RBC 3.27 10^6/uL (4.70-6.10) L 07/19/24 04:29
Hgb 9.5 g/dL (13.0-18.0) L 07/19/24 04:29
Hct 29.5 % (39.0-52.0) L 07/19/24 04:29
Plt Count 330 10^3/uL (130-400) 07/19/24 04:29
Sodium 134 mmol/L (135-145) L 07/19/24 04:29
Potassium 4.3 mmol/L (3.5-5.1) 07/19/24 04:
Chloride 93 mmol/L (98-107) L 07/19/24 04:29
Carbon Dioxide 29 mmol/L (22-30) 07/19/24 04:29
BUN 62 mg/dl (9-20) H 07/19/24 04:29
Creatinine 3.4 mg/dL (0.7-1.3) H 07/19/24 04:29
eGFR 18.88 07/19/24 04:29
Glucose 107 mg/dl (70-99) H 07/19/24 04:
Calcium 11.6 mg/dl (8.4-10.2) H 07/19/24 04:29
Phosphorus 2.5 mg/dl (2.5-4.5) 06/22/24 12:03
Ane-K-Saabdgljlyu Pept > 62360 pg/ml 06/20/24 18:13
Albumin 2.3 g/dl (3.5-5.0) L 06/25/24 04:13
Physical Exam
-
Vital Signs:
Vital Signs
Temp Pulse Resp BP Pulse Ox
98 F 74 18 154/91 98
07/19/24 12:50 07/19/24 13:30 07/19/24 13:30 07/19/24 13:30 07/19/24 13:30
Cardiovascular:: Regular rate and rhythm
Respiratory:: Bilateral: Coarse
Lung Excursion:: Normal
Abdomen:: Nontender and Soft
Bowel Sounds:: Normal
Extremity Edema:: None: Bilateral:
Bender Catheter: No
[2024-07-19 14:10] LABS: Body Fluid pH 7.48
[2024-07-19 14:31] LABS: Body Fluid Amylase 48 U/L; Body Fluid Glucose 104 mg/dl; Body Fluid LDH 103 U/L; Body Fluid Protein 4.6 g/dl; Body Fluid Triglycerides < 30 mg/dl
[2024-07-19 14:41] LABS: Body Fluid Polymorphonuclear 49.9 %; Body Fluid WBC 429 /CUMM
[2024-07-19 14:42] LABS: Body Fluid Mononuclear 50.1 %
[2024-07-19 14:46] LABS: Body Fluid Second Tech CS
[2024-07-19] MEDS: CRESTOR 20 MG TUBE (18:08)
[2024-07-19] MEDS: COZAAR 25 MG TUBE (18:10)
[2024-07-19] MEDS: FOLVITE 2 MG TUBE (21:00)
[2024-07-19] MEDS: MELATONIN 5 MG TUBE (21:01)
[2024-07-20 03:19] VITALS: BP 160/94
[2024-07-20 06:00] VITALS: BMI 19.1
--- NOTE | 2024-07-20 07:08 | W.PN.HOSP.TC ---
Addendum entered and electronically signed by Isabella Marques MD 07/20/24 15:37:
I saw and evaluated the patient independently. I reviewed the resident�s note and agree with findings and plan as documented by Dr. Faria.
GENERAL: chronically ill appearing male cachectic
HEENT: NC/AT--O2 back on
HEART: regular rate and rhythm, +S1, +S2, tachy
LUNGS : clear to auscultation bilaterally--decreased BS left base--more tachypneic
ABDOM: soft, nontender, nondistended, + bowel sounds
EXT: no cyanosis, clubbing, or edema
NEUROLOGIC: nonfocal
hypothermia--patient's rectal temperature is 95--with nausea and vomiting tube feeds a few days ago, concern for developing pneumonia despite improved white blood cell count--chest x-ray shows large pleural effusion recurred s/p 1600ml removed
(exudative), cultures negative to date--cont Unasyn
Left mainstem bronchus obstruction, recurrent aspiration -patient have increased secretion and potential for recurrent bronchus obstruction and related complication-- pulmonary toileting--aspiration risk
Leukocytosis--WBC increased to 16K but pt was noted to have been vomiting tube feeds 07/16--no fevers, no cough--likely aspiration pneumonitis--WBC returned to normal limits
Recurrent pleural effusion -patient underwent right-sided thoracentesis of 1.1 L. And left-sided thoracentesis of 1.45 L followed by 1.75 L, 750ml, 1600ml. A Pleurx catheter was planned although insurance approval did not come through. Hopefully,
volume can be controlled with dialysis, if not will likely need weekly thoracentesis set up
Acute hypoxic respiratory failure, ventilator dependent respiratory failure, s/p PEA/cardiac arrest -patient had episode of mucous plugging with respiratory arrest. Patient was bradycardic at that time and likely added to the problem. Patient
require ventilator support and was able to be extubated--off O2-- Dyspnea has improved with x3 time left-sided thoracentesis. Remains at high risk of decompensation and further respiratory problems.
Hypercalcemia/parathyroid adenoma/secondary hyperparathyroidism -patient has significant hypercalcemia and likely secondary to ESRD/secondary hyperparathyroidism and parathyroid adenoma found on imaging. Parathyroid hormone close to 1000. Patient
has been maximized on Cinacalcet and also has been provided calcitonin/bisphosphonates. In light of refractory nature of hypercalcemia surgery has been consulted, patient is a candidate for minimally invasive parathyroidectomy once pulmonary status
stabilizes--notified Dr. Umer Stroud that surgery for parathyroid to be postponed--needed thoracentesis--family wants more information about the surgery....
NSTEMI -patient was managed conservatively and has finished few days of heparin drip therapy. Echocardiogram showing ejection fraction of 50 to 55%.
Diastolic heart failure exacerbation -patient volume status being managed by hemodialysis, patient makes some urine.
Hx CVA w L hemiparesis, dysarthria, dysphagia-- cont tube feeding
ESRD on MWF HD--apprec renal
anemia of chronic disease- transfused 2 unit pRBCs
Severe calcific atherosclerotic plaque in the coronary arteries on CT Chest
Right chronically impacted humeral neck fracture -imaging finding on CT chest, needs to be verified with previous records
protein calorie malnutrition--cachectic, stage 2 pressure wound--on tube feeds--feels at least moderate if not severe
sacrum stage 2 pressure injury--cont local wound care---unclear to me if POA
Hyponatremia
Essential Hypertension
Hyperlipidemia
Carotid artery disease s/p R CEA
BPH
Depression
code status--DNI--wants chest compressions--patient very frustrated with the fact that his fluid has reaccumulated and needs another tap--seems frustrated by the entire medical condition--started conversation about Pleurx catheter, weekly
thoracentesis, 3 times per week dialysis, tube feedings, severe debilitation and needing rehab, upcoming surgery for parathyroidectomy and explained to patient that if he feels he cannot go on any further or does not want to keep moving forward that
hospice is a viable option. Also explained that there would be no need to make that decision immediately but that he should think about it and talk with his family. Only he can decide what he is willing to put up with and for how long regarding
his debilitation.
Had approximately 45-minute conversation by phone on July 20, 2024 with patient's daughter and patient's ex---explained conversation that I started with the patient yesterday regarding hospice and what he is willing to put up with, medical
conditions currently, upcoming surgery, general debilitation and the fact that he has been hospitalized here for approximately 1 month. They explained that he was at [facility] from February to April of this year, then went to rehab, and
now here. Explained that in my medical opinion, I do not believe that he will be here next year at this time and that he is hospice appropriate. They then questioned the utility of the parathyroid surgery scheduled for tomorrow. At this time, we
will postpone surgery and have notified Dr. Stroud. They are in full agreement with having a rai conversation with the patient but do not wish to do so until July 30 when they are available to be here bedside and speak in person.
disposition planning--apprec PM&R--candidate for SNF
Original Note:
Today's Communication/Plan
-
- HD today
- parathyroidectomy tomorrow
Assessment / Plan
Assessment / Plan
L mainstem bronchus obstruction secondary to secretions
B/l pleural effusions likely secondary to underlying CHF and ESRD
- aspiration risk
- hx CVA/peg tube on tube feeding
- CPT
- resp cx: Pseudomonas, completed 7 days abx
- cont flutter valve
- L thoracentesis 06/21 #1: 1450 cc straw-colored pleural fluid
- R thoracentesis 06/22 #1: 1100 cc of clear yellow pleural fluid.
- L thoracentesis 06/29 #2: 1750 cc of serosanguineous pleural fluid.
- L thoracentesis 07/08 #3: 750 cc of clear yellow pleural fluid.
- L thoracentesis 07/19 #4: 1600 cc of straw colored pleural fluid -- exudative effusion -- concern for empyema vs malignancy
- bcx: pending
- unasyn day 2
- appreciate pulm input
NSTEMI
CHF
- trop max 10.7
- was on a heparin drip
- Echo: LVEF 50-55%
- ASA, statin
- hold BB due to recent severe bradycardia
Acute on chronic HFpEF
- proBNP elevated
- echo: LVEF 50-55%
- volume overload managed by HD
Hypercalcemia secondary to parathyroid adenoma and hyperparathyroidism secondary to renal dysfunction
- vit D deficiency
- on cinacalcit
- CT CAP: enlarged parathyroid
- thyroid us: parathyroid adenoma
- pamidronate x1
- surgery consulted - agreeable to perform when medically stable - possibly Saturday
Hx CVA w L hemiparesis, dysarthria, dysphagia
- cont tube feeding
- PT/OT
- PMR consult
ESRD on MWF HD
anemia of chronic disease
- HD due 07/08
- transfused 2 unit pRBCs
Severe calcific atherosclerotic plaque in the coronary arteries on CT Chest
Right chronically impacted humeral neck fracture -imaging finding on CT chest, needs to be verified with previous records
Hyponatremia
Recent Flu
Benign Hypertension
Hyperlipidemia
Carotid artery disease s/p R CEA
BPH
Depression
Diet: tube feeding
DVT Prophylaxis: Heparin SUBQ
Code Status: limited - DNI only
Anticipated Discharge: > 48 hours
Subjective/Interval History
-
Date of Service: July 20, 2024
HD today. Pt wishes to proceed with procedure tomorrow.
Objective Data
-
Labs:
Laboratory Results
07/20/24
07:04
WBC Pending
Hgb Pending
Hct Pending
Plt Count Pending
Sodium Pending
Potassium Pending
Chloride Pending
Carbon Dioxide Pending
BUN Pending
Creatinine Pending
Glucose Pending
Calcium Pending
Vital Signs:
Vital Signs
Temp Pulse Resp BP Pulse Ox
97 F 70 18 160/94 97
07/20/24 03:19 07/20/24 03:19 07/20/24 03:19 07/20/24 03:19 07/20/24 03:19
I&O
07/19/24 07/20/24 07/21/24
06:59 06:59 06:59
Intake Total 0 / 0
Output Total 0 / 0 0 / 0
Balance 0 / 0 0 / 0
Review of Systems
-
History Source: Patient
Constitutional: Reports No Symptoms
Respiratory: Reports Trouble Breathing
Cardiac: Reports No Symptoms
Abdomen/GI: Reports No Symptoms
Musculoskeletal: Reports No Symptoms
Neuro: Reports No Symptoms
Physical Exam
-
General: Appears Chronically Ill and Cachectic
HEENT: Normocephalic and Atraumatic
Respiratory: Clear to Auscultation and Accessory Resp Muscle Use
Cardiac: Regular Rhythm and S1/S2
GI: Soft, Nontender, Nondistended and Normal Bowel Sounds
Musculoskeletal: No Clubbing, No Cyanosis and No Edema
Skin: Warm and Dry
Neuro: Awake, Alert and Oriented
Psych: Calm
[2024-07-20 07:18] LABS: Hematocrit 28.4 % (39.0-52.0); Hemoglobin 9.4 g/dL (13.0-18.0); Mean Corp Hgb Conc. 33.1 g/dL (33.0-37.0); Mean Corpuscular Volume 87.7 fL (80.0-94.0); Mean Platelet Volume 8.4 fL (7.4-10.4); Platelet Count 319 10^3/uL (130-400); Red Blood Cell Count 3.24 10^6/uL (4.70-6.10); Red Cell Dist. Width 15.4 % (11.5-14.5); White Blood Cell Count 10.2 10^3/uL (4.8-10.8)
[2024-07-20 07:30] VITALS: BP 160/91
[2024-07-20] MEDS: RETACRIT 6000 UNITS IV (09:22)
--- NOTE | 2024-07-20 09:26 | W.PN.NEPH.HD ---
Assessment
-
pt seen during HD
vitals stable
UF as tolerates
improving O2 requirement
decrease water flushes to 10cc/hr
pt willing to proceed for parathyroid surg tomorrow
CVC functions well
Progress Note - Hemodialysis
-
Date of Service: July 20, 2024
Duration: 30 minutes and 3 hours
Potassium Bath: 3
Calcium Bath: 2.5
Opti-Dialyzer: 160
Ultrafiltration: Other (3-3.5kg)
Blood Flow: 400
Dialysate Flow: 600
Heparin: no
EPO: 6000
[2024-07-20 10:04] LABS: Blood Urea Nitrogen 89 mg/dl (9-20); Calcium 11.4 mg/dl (8.4-10.2); Carbon Dioxide 27 mmol/L (22-30); Chloride 93 mmol/L (98-107); Estimated Creatinine Clearance 16 ml/min; Glucose 92 mg/dl (70-99); Magnesium 2.7 mg/dl (1.6-2.3); Potassium 4.8 mmol/L (3.5-5.1); Sodium 131 mmol/L (135-145); eGFR 15.53
[2024-07-20 11:54] VITALS: BP 108/75
[2024-07-20] MEDS: LOW STRENGTH ASPIRIN 81 MG TUBE (12:14)
[2024-07-20] MEDS: PREVACID 15 MG TUBE (12:15)
[2024-07-20] MEDS: WELLBUTRIN REGULAR RELEASE 150 MG TUBE ×2 (12:15→20:34)
[2024-07-20] MEDS: HEPARIN 5000 UNITS SC ×2 (12:16→20:35)
[2024-07-20] MEDS: BACTROBAN 2% OINTMENT 1 APPLIC TOPICAL ×2 (12:16→20:36)
[2024-07-20] MEDS: MIRALAX TUBE (12:22)
[2024-07-20] MEDS: ROBITUSSIN TUBE (12:22)
[2024-07-20] MEDS: SENSIPAR 120 MG TUBE (12:23)
[2024-07-20] MEDS: ROBITUSSIN 200 MG TUBE ×3 (12:28→20:36)
[2024-07-20 16:35] VITALS: BP 145/83
--- NOTE | 2024-07-20 17:14 | W.PN.UPDATE ---
Update Note
Progress Note Update
Contacted by primary team for evaluation of pleural fluid studies
- Fluid protein 4.6 and LDH 103. Exudate by lights criteria. Glucose 104, pH 7.48.
- Overall however LDH is only minimally elevated and this could be pseudo exudate considering patient is on dialysis
- Patient is afebrile with normal WBC count. Chest x-ray improved post-thoracentesis
- Follow-up on pleural fluid cultures to evaluate for any underlying infection. Pulmonary team will follow along.
[2024-07-20] MEDS: UNASYN IV (18:15)
[2024-07-20] MEDS: CRESTOR 20 MG TUBE (18:17)
[2024-07-20 19:41] VITALS: BP 146/90
[2024-07-20] MEDS: XANAX 0.25 MG TUBE (20:34)
[2024-07-20] MEDS: MELATONIN 5 MG TUBE (20:34)
[2024-07-20] MEDS: FOLVITE 2 MG TUBE (20:34)
[2024-07-20] MEDS: TYLENOL 650 MG TUBE (20:35)
[2024-07-20 23:55] VITALS: BP 154/92
[2024-07-21] VITALS (9 sets, daily range): BP systolic 129–165; BP diastolic 80–101; PULSE 72–81; O2SAT 96–97; BMI 18.6
--- NOTE | 2024-07-21 | PTCARENOTE ---
Unable to get oral or axillary temp, pt refusing rectal temp.
[2024-07-21] MEDS: APRESOLINE 10 MG IV (04:06)
[2024-07-21] MEDS: XANAX 0.25 MG TUBE (06:17)
[2024-07-21 06:44] LABS: Hematocrit 32.9 % (39.0-52.0); Hemoglobin 10.7 g/dL (13.0-18.0); Mean Corp Hgb Conc. 32.5 g/dL (33.0-37.0); Mean Corpuscular Volume 89.2 fL (80.0-94.0); Mean Platelet Volume 8.4 fL (7.4-10.4); Platelet Count 350 10^3/uL (130-400); Red Blood Cell Count 3.69 10^6/uL (4.70-6.10); Red Cell Dist. Width 15.9 % (11.5-14.5); White Blood Cell Count 8.5 10^3/uL (4.8-10.8)
[2024-07-21 07:19] LABS: Blood Urea Nitrogen 54 mg/dl (9-20); Calcium 11.5 mg/dl (8.4-10.2); Carbon Dioxide 27 mmol/L (22-30); Chloride 98 mmol/L (98-107); Estimated Creatinine Clearance 22 ml/min; Glucose 84 mg/dl (70-99); Magnesium 2.6 mg/dl (1.6-2.3); Potassium 3.9 mmol/L (3.5-5.1); Sodium 136 mmol/L (135-145); eGFR 23.83
--- NOTE | 2024-07-21 07:52 | W.PN.HOSP.TC ---
Addendum entered and electronically signed by Isabella Marques MD 07/21/24 15:59:
I saw and evaluated the patient independently. I reviewed the resident�s note and agree with findings and plan as documented by Dr. Faria.
GENERAL: chronically ill appearing male cachectic
HEENT: NC/AT--O2 back on
HEART: regular rate and rhythm, +S1, +S2, tachy
LUNGS : clear to auscultation bilaterally--decreased BS left base--more tachypneic
ABDOM: soft, nontender, nondistended, + bowel sounds
EXT: no cyanosis, clubbing, or edema
NEUROLOGIC: nonfocal
hypothermia--patient's rectal temperature is 95--with nausea and vomiting tube feeds a few days ago, concern for developing pneumonia despite improved white blood cell count--chest x-ray shows large pleural effusion recurred s/p 1600ml removed
(exudative), cultures negative to date--cont Unasyn (day 3)
Left mainstem bronchus obstruction, recurrent aspiration -patient have increased secretion and potential for recurrent bronchus obstruction and related complication-- pulmonary toileting--aspiration risk
Leukocytosis--WBC increased to 16K but pt was noted to have been vomiting tube feeds 07/16--no fevers, no cough--likely aspiration pneumonitis--WBC returned to normal limits
Recurrent pleural effusion -patient underwent right-sided thoracentesis of 1.1 L. And left-sided thoracentesis of 1.45 L followed by 1.75 L, 750ml, 1600ml. A Pleurx catheter was planned although insurance approval did not come through. Hopefully,
volume can be controlled with dialysis, if not will likely need weekly thoracentesis set up
Acute hypoxic respiratory failure, ventilator dependent respiratory failure, s/p PEA/cardiac arrest -patient had episode of mucous plugging with respiratory arrest. Patient was bradycardic at that time and likely added to the problem. Patient
require ventilator support and was able to be extubated--off O2-- Dyspnea has improved with x3 time left-sided thoracentesis. Remains at high risk of decompensation and further respiratory problems.
Hypercalcemia/parathyroid adenoma/secondary hyperparathyroidism -patient has significant hypercalcemia and likely secondary to ESRD/secondary hyperparathyroidism and parathyroid adenoma found on imaging. Parathyroid hormone close to 1000. Patient
has been maximized on Cinacalcet and also has been provided calcitonin/bisphosphonates. In light of refractory nature of hypercalcemia surgery has been consulted, patient is a candidate for minimally invasive parathyroidectomy once pulmonary status
stabilizes--notified Dr. Umer Stroud that surgery for parathyroid to be postponed--needed thoracentesis--family wants more information about the surgery....
NSTEMI -patient was managed conservatively and has finished few days of heparin drip therapy. Echocardiogram showing ejection fraction of 50 to 55%.
Diastolic heart failure exacerbation -patient volume status being managed by hemodialysis, patient makes some urine.
Hx CVA w L hemiparesis, dysarthria, dysphagia-- cont tube feeding
ESRD on MWF HD--apprec renal
anemia of chronic disease- transfused 2 unit pRBCs
Severe calcific atherosclerotic plaque in the coronary arteries on CT Chest
Right chronically impacted humeral neck fracture -imaging finding on CT chest, needs to be verified with previous records
protein calorie malnutrition--cachectic, stage 2 pressure wound--on tube feeds--feel at least moderate if not severe
sacrum stage 2 pressure injury--cont local wound care---unclear to me if POA
Hyponatremia
Essential Hypertension
Hyperlipidemia
Carotid artery disease s/p R CEA
BPH
Depression
code status--DNI--wants chest compressions--patient very frustrated with the fact that his fluid has reaccumulated and needs another tap--seems frustrated by the entire medical condition--started conversation about Pleurx catheter, weekly
thoracentesis, 3 times per week dialysis, tube feedings, severe debilitation and needing rehab, upcoming surgery for parathyroidectomy and explained to patient that if he feels he cannot go on any further or does not want to keep moving forward that
hospice is a viable option. Also explained that there would be no need to make that decision immediately but that he should think about it and talk with his family. Only he can decide what he is willing to put up with and for how long regarding
his debilitation.
Had approximately 45-minute conversation by phone on July 20, 2024 with patient's daughter and patient's ex---explained conversation that I started with the patient Wednesday 07/19 regarding hospice and what he is willing to put up with, medical
conditions currently, upcoming surgery, general debilitation and the fact that he has been hospitalized here for approximately 1 month. They explained that he was at [facility] from February to April of this year, then went to rehab, and
now here. Explained that in my medical opinion, I do not believe that he will be here next year at this time and that he is hospice appropriate. They then questioned the utility of the parathyroid surgery scheduled for tomorrow. At this time, we
will postpone surgery and have notified Dr. Stroud. They are in full agreement with having a rai conversation with the patient but do not wish to do so until July 30 when they are available to be here bedside and speak in person. I did ask if they
were able to come in sooner than July 30 to which the reply was no.
Came to see patient on rounds on 07/21 and he was on the phone with his daughter Tawnya. I started the conversation with the patient that I had with Tawnya and her mom on Thursday 07/20. I explained that I do not think that the patient will be here next
year at this time. I also told him that I do not think that he is rehab-able and that he will likely not get home and he will be in a residential long-term. Told the patient that I think meeting with hospice and having a rai discussion will be
another piece of the POLST for him to make an informed decision about what he wants moving forward. I did explain that hospice is comfort focused. Patient was going to think about it and continue discussions with his family. They are still
anticipating coming in July 30 2 to have a discussion about options he may have.
disposition planning--apprec PM&R--candidate for SNF not acute--not LTAC candidate--no Asept cath per insurance
Original Note:
Today's Communication/Plan
-
- HD tw
- Goals of care discussion continued
Assessment / Plan
Assessment / Plan
L mainstem bronchus obstruction secondary to secretions
B/l pleural effusions likely secondary to underlying CHF and ESRD
- aspiration risk
- hx CVA/peg tube on tube feeding
- CPT
- resp cx: Pseudomonas, completed 7 days abx
- cont flutter valve
- L thoracentesis 06/21 #1: 1450 cc straw-colored pleural fluid
- R thoracentesis 06/22 #1: 1100 cc of clear yellow pleural fluid.
- L thoracentesis 06/29 #2: 1750 cc of serosanguineous pleural fluid.
- L thoracentesis 07/08 #3: 750 cc of clear yellow pleural fluid.
- L thoracentesis 07/19 #4: 1600 cc of straw colored pleural fluid -- exudative effusion -- concern for empyema vs malignancy
- bcx: no growth 24h
- unasyn day 3
- appreciate pulm input
NSTEMI
CHF
- trop max 10.7
- was on a heparin drip
- Echo: LVEF 50-55%
- ASA, statin
- hold BB due to recent severe bradycardia
Acute on chronic HFpEF
- proBNP elevated
- echo: LVEF 50-55%
- volume overload managed by HD
Hypercalcemia secondary to parathyroid adenoma and hyperparathyroidism secondary to renal dysfunction
- vit D deficiency
- on cinacalcit
- CT CAP: enlarged parathyroid
- thyroid us: parathyroid adenoma
- pamidronate x1
- surgery consulted - agreeable to perform when medically stable - possibly Saturday
Hx CVA w L hemiparesis, dysarthria, dysphagia
- cont tube feeding
- PT/OT
- PMR consult
ESRD on MWF HD
anemia of chronic disease
- HD due 07/08
- transfused 2 unit pRBCs
Severe calcific atherosclerotic plaque in the coronary arteries on CT Chest
Right chronically impacted humeral neck fracture -imaging finding on CT chest, needs to be verified with previous records
Hyponatremia
Recent Flu
Benign Hypertension
Hyperlipidemia
Carotid artery disease s/p R CEA
BPH
Depression
Diet: tube feeding
DVT Prophylaxis: Heparin SUBQ
Code Status: limited - DNI only
Anticipated Discharge: > 48 hours
Subjective/Interval History
-
Date of Service: July 21, 2024
No acute overnight events.
Objective Data
-
Labs:
Laboratory Results
07/21/24
06:00
WBC 8.5
Hgb 10.7 L
Hct 32.9 L
Plt Count 350
Sodium 136
Potassium 3.9
Chloride 98
Carbon Dioxide 27
BUN 54 H
Creatinine 2.8 H
Glucose 84
Calcium 11.5 H
Vital Signs:
Vital Signs
Temp Pulse Resp BP Pulse Ox
98.5 F 76 16 161/101 100
07/21/24 03:48 07/21/24 03:48 07/21/24 03:48 07/21/24 03:48 07/21/24 03:48
I&O
07/20/24 07/21/24 07/22/24
06:59 06:59 06:59
Intake Total 1120 / 1120 220 / 220
Output Total 0 / 0
Balance 0 / 0 1095 / 1095 220 / 220
Review of Systems
-
History Source: Patient
Constitutional: Reports No Symptoms
Respiratory: Reports Trouble Breathing
Cardiac: Reports No Symptoms
Abdomen/GI: Reports No Symptoms
Neuro: Reports No Symptoms
Physical Exam
-
General: Appears Chronically Ill and Cachectic
HEENT: Normocephalic, Atraumatic and Oxygen
Respiratory: Clear to Auscultation and Accessory Resp Muscle Use
Cardiac: Regular Rhythm and S1/S2
GI: Soft, Nontender, Nondistended and Normal Bowel Sounds
Musculoskeletal: No Clubbing, No Cyanosis and No Edema
Skin: Warm and Dry
Neuro: Awake, Alert and Oriented
Psych: Calm
[2024-07-21] MEDS: MIRALAX TUBE (08:39)
[2024-07-21] MEDS: SENSIPAR 120 MG TUBE (08:39)
[2024-07-21] MEDS: BACTROBAN 2% OINTMENT 1 APPLIC TOPICAL ×2 (08:39→20:02)
[2024-07-21] MEDS: ROBITUSSIN 200 MG TUBE ×4 (08:39→21:22)
[2024-07-21] MEDS: WELLBUTRIN REGULAR RELEASE 150 MG TUBE ×2 (08:40→19:59)
[2024-07-21] MEDS: LOW STRENGTH ASPIRIN 81 MG TUBE (08:40)
[2024-07-21] MEDS: HEPARIN 5000 UNITS SC ×2 (08:40→19:59)
[2024-07-21] MEDS: PREVACID 15 MG TUBE (08:40)
--- NOTE | 2024-07-21 11:04 | CM ---
Patient seen at bedside on with daughter on phone. Patient is considering options, possible surgery, consideration of comfort care but family will not be able to come to discuss with physicians in person and patient until next week. Patient
stated that he wanted to talk to his family. CM will continue to search for available placement. CM will continue to follow for discharge planning needs.
Plan; SNF pending acceptance
--- NOTE | 2024-07-21 13:20 | W.PN.NEPH.PH ---
Today's Communication / Plan
-
Dialysis tomorrow ordered
Assessment/Plan
-
Impression:
ESRD MWF
Hypoxia/left lung atelectasis versus pneumonia
Large left pleural effusion s/p thoracentesis 06/21
CHF
Anemia
Hypertension hx
Hyponatremia
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
Hyperphosphatemia
PEG
Non-ST elevation [place]
History of stroke with subsequent left hemiparesis dysarthria and dysphagia
Tunneled right HD IJ catheter
Chronic impacted right proximal humerus fracture
hypercalcemia
Plan:
hypercalcemia: suri still at 11 range on low suri bath and on high dose of sensipar 120mg, PTH 1022, possible adenoma noted on US
highly suggest tertiary hyperparathyroidism -tentative plan of surg postponed as per surgery conversation with family as to the necessity and possible hospice
recurrent plerual effusion status post
cont TF with asp risk
stable hemodynamics
d/w pt
Dialysis tomorrow
-
-
Date of Service: July 21, 2024
CC / HPI / ROS
-
Chief Complaint:
ESRD
History of Present Illness:
hemodynamically stable
Hemodialysis on Saturday schedule
calcium slightly high despite sensipar at 11..6
Review of Systems:
No chest pain , oxygen
No fever
cXR shows pleural effusion
Labs
-
Labs:
WBC 8.5 10^3/uL (4.8-10.8) 07/21/24 06:00
RBC 3.69 10^6/uL (4.70-6.10) L 07/21/24 06:00
Hgb 10.7 g/dL (13.0-18.0) L 07/21/24 06:00
Hct 32.9 % (39.0-52.0) L 07/21/24 06:00
Plt Count 350 10^3/uL (130-400) 07/21/24 06:00
Sodium 136 mmol/L (135-145) 07/21/24 06:00
Potassium 3.9 mmol/L (3.5-5.1) 07/21/24 06:00
Chloride 98 mmol/L (98-107) 07/21/24 06:00
Carbon Dioxide 27 mmol/L (22-30) 07/21/24 06:00
BUN 54 mg/dl (9-20) H 07/21/24 06:00
Creatinine 2.8 mg/dL (0.7-1.3) H 07/21/24 06:00
eGFR 23.83 07/21/24 06:00
Glucose 84 mg/dl (70-99) 07/21/24 06:00
Calcium 11.5 mg/dl (8.4-10.2) H 07/21/24 06:00
Phosphorus 2.5 mg/dl (2.5-4.5) 06/22/24 12:03
Cpm-W-Emniogryqld Pept > 01326 pg/ml 06/20/24 18:13
Albumin 2.3 g/dl (3.5-5.0) L 06/25/24 04:13
Physical Exam
-
Vital Signs:
Vital Signs
Temp Pulse Resp BP Pulse Ox
97.0 F 70 18 144/82 97
07/21/24 11:31 07/21/24 11:31 07/21/24 11:31 07/21/24 11:31 07/21/24 11:31
Cardiovascular:: Regular rate and rhythm
Respiratory:: Bilateral: Coarse
Lung Excursion:: Normal
Abdomen:: Nontender and Soft
Bowel Sounds:: Normal
Extremity Edema:: None: Bilateral:
Bender Catheter: No
[2024-07-21] MEDS: TYLENOL 650 MG TUBE (14:49)
[2024-07-21] MEDS: ROXICODONE 5 MG TUBE (16:56)
--- NOTE | 2024-07-21 17:12 | PTCARENOTE ---
Pt with rectal temp of 96.6 after oral temp would not read and auxiliary temp reading 96.4. pt refusing dov benavides at this time. MD Marques made aware. no new orders at this time. plan of care continues to be followed.
[2024-07-21] MEDS: CRESTOR 20 MG TUBE (17:50)
[2024-07-21] MEDS: UNASYN IV (17:53)
[2024-07-21] MEDS: COZAAR 25 MG TUBE (19:59)
[2024-07-21] MEDS: FOLVITE 2 MG TUBE (21:22)
[2024-07-21] MEDS: MELATONIN 5 MG TUBE (21:22)
[2024-07-22 03:00] VITALS: BP 138/85
[2024-07-22 03:43] VITALS: BP 148/55
--- NOTE | 2024-07-22 04:45 | PTCARENOTE ---
Pt. c/o groin/lower abd pain and pressure overnight and again had his CBI irrigated per protocol. Multiple small blood clots observed after catheter was irrigated. Patient stated that he felt relief after the catheter was irrigated and clots
drained. CBI irrigation rate increased and catheter is currently draining blood tinged output. Patient is resting comfortably at this time, plan of care continues.
[2024-07-22 06:00] VITALS: BMI 18.8
[2024-07-22 07:17] LABS: Hematocrit 31.5 % (39.0-52.0); Hemoglobin 10.2 g/dL (13.0-18.0); Mean Corp Hgb Conc. 32.4 g/dL (33.0-37.0); Mean Corpuscular Hgb 29.1 pg (27.0-31.0); Mean Corpuscular Volume 89.7 fL (80.0-94.0); Mean Platelet Volume 8.3 fL (7.4-10.4); Platelet Count 349 10^3/uL (130-400); Red Blood Cell Count 3.51 10^6/uL (4.70-6.10); Red Cell Dist. Width 15.9 % (11.5-14.5); White Blood Cell Count 9.7 10^3/uL (4.8-10.8)
[2024-07-22] MEDS: MIRALAX TUBE (07:50)
[2024-07-22 07:56] LABS: Blood Urea Nitrogen 75 mg/dl (9-20); Calcium 12.1 mg/dl (8.4-10.2); Carbon Dioxide 26 mmol/L (22-30); Chloride 97 mmol/L (98-107); Estimated Creatinine Clearance 16 ml/min; Glucose 105 mg/dl (70-99); Magnesium 2.9 mg/dl (1.6-2.3); Potassium 4.3 mmol/L (3.5-5.1); Sodium 136 mmol/L (135-145); eGFR 16.01
--- NOTE | 2024-07-22 08:03 | W.PN.HOSP.TC ---
Addendum entered and electronically signed by Isabella Marques MD 07/22/24 17:45:
I saw and evaluated the patient independently. I reviewed the resident�s note and agree with findings and plan as documented by Dr. Faria.
GENERAL: chronically ill appearing male cachectic
HEENT: NC/AT--O2 back on
HEART: regular rate and rhythm, +S1, +S2, tachy
LUNGS : clear to auscultation bilaterally--decreased BS left base
ABDOM: soft, nontender, nondistended, + bowel sounds
EXT: no cyanosis, clubbing, or edema
NEUROLOGIC: nonfocal
hypothermia--patient's rectal temperature is 95--with nausea and vomiting tube feeds a few days ago, concern for developing pneumonia despite improved white blood cell count--chest x-ray shows large pleural effusion recurred s/p 1600ml removed
(exudative), cultures negative to date--cont Unasyn (day 4)
Left mainstem bronchus obstruction, recurrent aspiration -patient have increased secretion and potential for recurrent bronchus obstruction and related complication-- pulmonary toileting--aspiration risk
Leukocytosis--WBC increased to 16K but pt was noted to have been vomiting tube feeds 07/16--no fevers, no cough--likely aspiration pneumonitis--WBC returned to normal limits
Recurrent pleural effusion -patient underwent right-sided thoracentesis of 1.1 L. And left-sided thoracentesis of 1450ml, 1750 ml, 750ml, 1600ml. A Pleurx catheter was planned although insurance approval did not come through. will likely need
weekly thoracentesis set up
Acute hypoxic respiratory failure, ventilator dependent respiratory failure, s/p PEA/cardiac arrest -patient had episode of mucous plugging with respiratory arrest. Patient was bradycardic at that time and likely added to the problem. Patient
require ventilator support and was able to be extubated--back on O2-- Dyspnea has improved with x4 with thoracentesis. Remains at high risk of decompensation and further respiratory problems.
Hypercalcemia/parathyroid adenoma/secondary hyperparathyroidism -patient has significant hypercalcemia and likely secondary to ESRD/secondary hyperparathyroidism and parathyroid adenoma found on imaging. Parathyroid hormone close to 1000. Patient
has been maximized on Cinacalcet and also has been provided calcitonin/bisphosphonates. In light of refractory nature of hypercalcemia surgery has been consulted, patient is a candidate for minimally invasive parathyroidectomy once pulmonary status
stabilizes--notified Dr. Umer Stroud that surgery for parathyroid to be postponed--needed thoracentesis--family wants more information about the surgery....
NSTEMI -patient was managed conservatively and has finished few days of heparin drip therapy. Echocardiogram showing ejection fraction of 50 to 55%.
Diastolic heart failure exacerbation -patient volume status being managed by hemodialysis, patient makes some urine.
Hx CVA w L hemiparesis, dysarthria, dysphagia-- cont tube feeding
ESRD on MWF HD--apprec renal
anemia of chronic disease- transfused 2 unit pRBCs
Severe calcific atherosclerotic plaque in the coronary arteries on CT Chest
Right chronically impacted humeral neck fracture -imaging finding on CT chest, needs to be verified with previous records
protein calorie malnutrition--cachectic, stage 2 pressure wound--on tube feeds--feel at least moderate if not severe
sacrum stage 2 pressure injury--cont local wound care---unclear to me if POA
Hyponatremia
Essential Hypertension
Hyperlipidemia
Carotid artery disease s/p R CEA
BPH
Depression
code status--DNI--wants chest compressions--patient very frustrated with the fact that his fluid has reaccumulated and needs another tap--seems frustrated by the entire medical condition--started conversation about Pleurx catheter, weekly
thoracentesis, 3 times per week dialysis, tube feedings, severe debilitation and needing rehab, upcoming surgery for parathyroidectomy and explained to patient that if he feels he cannot go on any further or does not want to keep moving forward that
hospice is a viable option. Also explained that there would be no need to make that decision immediately but that he should think about it and talk with his family. Only he can decide what he is willing to put up with and for how long regarding
his debilitation.
Had approximately 45-minute conversation by phone on July 20, 2024 with patient's daughter and patient's ex---explained conversation that I started with the patient Wednesday 07/19 regarding hospice and what he is willing to put up with, medical
conditions currently, upcoming surgery, general debilitation and the fact that he has been hospitalized here for approximately 1 month. They explained that he was at [facility] from February to April of this year, then went to rehab, and
now here. Explained that in my medical opinion, I do not believe that he will be here next year at this time and that he is hospice appropriate. They then questioned the utility of the parathyroid surgery scheduled for tomorrow. At this time, we
will postpone surgery and have notified Dr. Stroud. They are in full agreement with having a rai conversation with the patient but do not wish to do so until July 30 when they are available to be here bedside and speak in person. I did ask if they
were able to come in sooner than July 30 to which the reply was no.
Came to see patient on rounds on 07/21 and he was on the phone with his daughter Tawnya. I started the conversation with the patient that I had with Tawnya and her mom on Thursday 07/20. I explained that I do not think that the patient will be here next
year at this time. I also told him that I do not think that he is rehab-able and that he will likely not get home and he will be in a [facility]. Told the patient that I think meeting with hospice and having a rai discussion will be
another piece of the POLST for him to make an informed decision about what he wants moving forward. I did explain that hospice is comfort focused. Patient was going to think about it and continue discussions with his family. They are still
anticipating coming in July 30 to have a discussion about options he may have.
07/22 asked patient again regarding what he thought about hospice, goals of care that we do spoke about. He stated that his daughter and are coming tomorrow , July 23, 2024. He told me that he feels by choosing hospice that that is
being 'selfish'. He wants to be true to his Taoist teaching. He asked to speak to a concrete float maker. We did contact communications operator's office at his request.
disposition planning--not LTAC candidate, not acute rehab candidate--no Asept cath per insurance--SNF....
Original Note:
Today's Communication/Plan
-
- HD today
- goals of care discussion
- family in tomorrow
Assessment / Plan
Assessment / Plan
L mainstem bronchus obstruction secondary to secretions
B/l pleural effusions likely secondary to underlying CHF and ESRD
- aspiration risk
- hx CVA/peg tube on tube feeding
- CPT
- resp cx: Pseudomonas, completed 7 days abx
- cont flutter valve
- L thoracentesis 06/21 #1: 1450 cc straw-colored pleural fluid
- R thoracentesis 06/22 #1: 1100 cc of clear yellow pleural fluid.
- L thoracentesis 06/29 #2: 1750 cc of serosanguineous pleural fluid.
- L thoracentesis 07/08 #3: 750 cc of clear yellow pleural fluid.
- L thoracentesis 07/19 #4: 1600 cc of straw colored pleural fluid -- exudative effusion -- concern for empyema vs malignancy vs from HD
- bcx: no growth 48h
- unasyn day 4
- appreciate pulm input
NSTEMI
CHF
- trop max 10.7
- was on a heparin drip
- Echo: LVEF 50-55%
- ASA, statin
- hold BB due to recent severe bradycardia
Acute on chronic HFpEF
- proBNP elevated
- echo: LVEF 50-55%
- volume overload managed by HD
Hypercalcemia secondary to parathyroid adenoma and hyperparathyroidism secondary to renal dysfunction
- vit D deficiency
- on cinacalcit
- CT CAP: enlarged parathyroid
- thyroid us: parathyroid adenoma
- pamidronate x1
- surgery consulted - agreeable to perform when medically stable - possibly Saturday
Hx CVA w L hemiparesis, dysarthria, dysphagia
- cont tube feeding
- PT/OT
- PMR consult
ESRD on MWF HD
anemia of chronic disease
- HD due 07/08
- transfused 2 unit pRBCs
Severe calcific atherosclerotic plaque in the coronary arteries on CT Chest
Right chronically impacted humeral neck fracture -imaging finding on CT chest, needs to be verified with previous records
Hyponatremia
Recent Flu
Benign Hypertension
Hyperlipidemia
Carotid artery disease s/p R CEA
BPH
Depression
Diet: tube feeding
DVT Prophylaxis: Heparin SUBQ
Code Status: limited - DNI only
Anticipated Discharge: > 48 hours
Subjective/Interval History
-
Date of Service: July 22, 2024
HD today. Last night, pt endorsed groin/lower abd pain. Bender irrigated, blood clots removed. Pain improved.
Objective Data
-
Labs:
Laboratory Results
07/22/24
06:17
WBC 9.7
Hgb 10.2 L
Hct 31.5 L
Plt Count 349
Sodium 136
Potassium 4.3
Chloride 97 L
Carbon Dioxide 26
BUN 75 H
Creatinine 3.9 H
Glucose 105 H
Calcium 12.1 H
Vital Signs:
Vital Signs
Temp Pulse Resp BP Pulse Ox
98.5 F 74 18 148/55 97
07/22/24 03:43 07/22/24 03:43 07/22/24 03:43 07/22/24 03:43 07/22/24 03:43
I&O
07/21/24 07/22/24 07/23/24
06:59 06:59 06:59
Intake Total 1120 / 1120 1040 / 1040
Output Total
Balance 1095 / 1095 1040 / 1040
Review of Systems
-
History Source: Patient
Constitutional: Reports No Symptoms
Respiratory: Reports No Symptoms
Cardiac: Reports No Symptoms
Abdomen/GI: Reports No Symptoms
Musculoskeletal: Reports No Symptoms
Neuro: Reports No Symptoms
Physical Exam
-
General: Appears Chronically Ill and Cachectic
HEENT: Normocephalic and Atraumatic
Respiratory: Clear to Auscultation and Accessory Resp Muscle Use
Cardiac: Regular Rhythm and S1/S2
GI: Soft, Nontender, Nondistended and Normal Bowel Sounds
Musculoskeletal: No Clubbing, No Cyanosis and No Edema
Skin: Warm and Dry
Neuro: Awake, Alert and Oriented
Psych: Calm
[2024-07-22 08:24] VITALS: BP 168/95
[2024-07-22] MEDS: RETACRIT 4000 UNITS IV (09:00)
[2024-07-22] MEDS: ROBITUSSIN TUBE (09:12)
[2024-07-22 11:00] VITALS: BP 125/83
[2024-07-22] MEDS: XANAX 0.25 MG TUBE (12:06)
[2024-07-22] MEDS: SENSIPAR 120 MG TUBE (12:06)
[2024-07-22] MEDS: WELLBUTRIN REGULAR RELEASE 150 MG TUBE ×2 (12:06→20:35)
[2024-07-22] MEDS: HEPARIN 5000 UNITS SC (12:06)
[2024-07-22] MEDS: ROBITUSSIN 200 MG TUBE ×3 (12:06→21:57)
[2024-07-22] MEDS: PREVACID 15 MG TUBE (12:07)
[2024-07-22] MEDS: LOW STRENGTH ASPIRIN 81 MG TUBE (12:07)
[2024-07-22] MEDS: BACTROBAN 2% OINTMENT 1 APPLIC TOPICAL ×2 (12:07→20:36)
--- NOTE | 2024-07-22 12:08 | W.PN.NEPH.HD ---
Assessment
-
pt seen during HD
vitals stable , decreases with UF
CVC functions fine
GOC discussion ongoing
reviewed with primary and pt
Progress Note - Hemodialysis
-
Date of Service: July 22, 2024
Duration: 30 minutes and 3 hours
Potassium Bath: 3
Calcium Bath: 2.5
Opti-Dialyzer: 160
Ultrafiltration: Other (2-2.5kg)
Blood Flow: 400
Dialysate Flow: 600
Heparin: no
EPO: 4000
--- NOTE | 2024-07-22 16:04 | DOWNTIME ---
There was a [employer] Client Snap Attacher Downtime on 07/22/2024 from 1230 to 07/22/2024 at 1550. Downtime documentation of patient's care, including medication administrations, has been reconciled in the electronic record per guidelines. Refer to the
patient's paper chart under the miscellaneous tab to see printed paper medication records and downtime forms.
--- NOTE | 2024-07-22 16:10 | CM ---
Patient seen at bedside with daughter and physicians on . Patient continues on Hospice and no needs at this time. CM will continue to follow for discharge planning needs.
Plan; hospice
--- NOTE | 2024-07-22 16:13 | DOWNTIME ---
There was a [employer] Client Traveling Repair Accountant Downtime on 07/22/2024 from 1230 to 07/22/2024 at 1550. Downtime documentation of patient's care, including medication administrations, has been reconciled in the electronic record per guidelines. Refer to the
patient's paper chart under the miscellaneous tab to see printed paper medication records and downtime forms.
[2024-07-22] MEDS: CRESTOR 20 MG TUBE (17:23)
[2024-07-22] MEDS: UNASYN IV (17:23)
[2024-07-22 19:30] VITALS: BP 152/91
[2024-07-22] MEDS: HEPARIN SC ×2 (20:35→20:53)
[2024-07-22] MEDS: MELATONIN 5 MG TUBE (21:57)
[2024-07-22] MEDS: FOLVITE 2 MG TUBE (21:57)
[2024-07-22 23:48] VITALS: BP 140/81
[2024-07-23 06:00] VITALS: BMI 18.2
[2024-07-23 07:00] VITALS: BP 154/91
[2024-07-23] MEDS: SENSIPAR 120 MG TUBE (07:41)
[2024-07-23] MEDS: PREVACID 15 MG TUBE (07:41)
[2024-07-23] MEDS: WELLBUTRIN REGULAR RELEASE 150 MG TUBE ×2 (07:41→19:41)
[2024-07-23] MEDS: HEPARIN 5000 UNITS SC (07:41)
[2024-07-23] MEDS: LOW STRENGTH ASPIRIN 81 MG TUBE (07:42)
[2024-07-23] MEDS: BACTROBAN 2% OINTMENT 1 APPLIC TOPICAL ×2 (07:42→19:41)
[2024-07-23] MEDS: ROBITUSSIN 200 MG TUBE ×4 (07:42→22:26)
[2024-07-23] MEDS: MIRALAX TUBE (07:42)
--- NOTE | 2024-07-23 07:51 | W.PN.HOSP.TC ---
Today's Communication/Plan
-
- cont goals of care discussion
Assessment / Plan
Assessment / Plan
L mainstem bronchus obstruction secondary to secretions
B/l pleural effusions likely secondary to underlying CHF and ESRD
- aspiration risk
- hx CVA/peg tube on tube feeding
- CPT
- resp cx: Pseudomonas, completed 7 days abx
- cont flutter valve
- L thoracentesis 06/21 #1: 1450 cc straw-colored pleural fluid
- R thoracentesis 06/22 #1: 1100 cc of clear yellow pleural fluid.
- L thoracentesis 06/29 #2: 1750 cc of serosanguineous pleural fluid.
- L thoracentesis 07/08 #3: 750 cc of clear yellow pleural fluid.
- L thoracentesis 07/19 #4: 1600 cc of straw colored pleural fluid -- exudative effusion -- concern for empyema vs malignancy vs from HD
- bcx: no growth 72h
- unasyn day 5
- appreciate pulm input
NSTEMI
CHF
- trop max 10.7
- was on a heparin drip
- Echo: LVEF 50-55%
- ASA, statin
- hold BB due to recent severe bradycardia
Acute on chronic HFpEF
- proBNP elevated
- echo: LVEF 50-55%
- volume overload managed by HD
Hypercalcemia secondary to parathyroid adenoma and hyperparathyroidism secondary to renal dysfunction
- vit D deficiency
- on cinacalcit
- CT CAP: enlarged parathyroid
- thyroid us: parathyroid adenoma
- pamidronate x1
- surgery consulted - agreeable to perform when medically stable - possibly Saturday
Hx CVA w L hemiparesis, dysarthria, dysphagia
- cont tube feeding
- PT/OT
- PMR consult
ESRD on MWF HD
anemia of chronic disease
- HD due 07/08
- transfused 2 unit pRBCs
Severe calcific atherosclerotic plaque in the coronary arteries on CT Chest
Right chronically impacted humeral neck fracture -imaging finding on CT chest, needs to be verified with previous records
Hyponatremia
Recent Flu
Benign Hypertension
Hyperlipidemia
Carotid artery disease s/p R CEA
BPH
Depression
Diet: tube feeding
DVT Prophylaxis: Heparin SUBQ
Code Status: limited - DNI only
Anticipated Discharge: > 48 hours
Subjective/Interval History
-
Date of Service: July 23, 2024
No acute overnight events. Discussed comfort care and pt's beliefs. Daughter is present at bedside.
Objective Data
-
Labs:
Laboratory Results
07/23/24
06:00
WBC Pending
Hgb Pending
Hct Pending
Plt Count Pending
Sodium Pending
Potassium Pending
Chloride Pending
Carbon Dioxide Pending
BUN Pending
Creatinine Pending
Glucose Pending
Calcium Pending
Vital Signs:
Vital Signs
Temp Pulse Resp BP Pulse Ox
97.5 F 73 14 140/81 100
07/22/24 23:48 07/22/24 23:48 07/22/24 23:48 07/22/24 23:48 07/22/24 23:48
I&O
07/22/24 07/23/24 07/24/24
06:59 06:59 06:59
Intake Total 1040 / 1040 720 / 720
Balance 1040 / 1040 720 / 720
Review of Systems
-
History Source: Patient
Constitutional: Reports No Symptoms
Respiratory: Reports Trouble Breathing
Cardiac: Reports No Symptoms
Abdomen/GI: Reports No Symptoms
Neuro: Reports No Symptoms
Physical Exam
-
General: Appears Chronically Ill and Cachectic
HEENT: Normocephalic and Atraumatic
Respiratory: Clear to Auscultation and Accessory Resp Muscle Use
Cardiac: Regular Rhythm and S1/S2
GI: Soft, Nontender, Nondistended, Normal Bowel Sounds and Peg Tube
Musculoskeletal: No Clubbing, No Cyanosis and No Edema
Skin: Warm and Dry
Neuro: Awake, Alert and Oriented
Psych: Calm
[2024-07-23] MEDS: XANAX 0.25 MG TUBE (07:59)
[2024-07-23 08:32] LABS: Hematocrit 32.6 % (39.0-52.0); Hemoglobin 10.4 g/dL (13.0-18.0); Mean Corp Hgb Conc. 31.9 g/dL (33.0-37.0); Mean Corpuscular Hgb 28.9 pg (27.0-31.0); Mean Corpuscular Volume 90.6 fL (80.0-94.0); Platelet Count 316 10^3/uL (130-400); Red Cell Dist. Width 16.1 % (11.5-14.5); White Blood Cell Count 10.7 10^3/uL (4.8-10.8)
[2024-07-23 09:35] LABS: Blood Urea Nitrogen 50 mg/dl (9-20); Calcium 12.2 mg/dl (8.4-10.2); Carbon Dioxide 30 mmol/L (22-30); Chloride 98 mmol/L (98-107); Estimated Creatinine Clearance 20 ml/min; Glucose 106 mg/dl (70-99); Magnesium 2.7 mg/dl (1.6-2.3); Potassium 4.3 mmol/L (3.5-5.1); Sodium 139 mmol/L (135-145); eGFR 21.94
--- NOTE | 2024-07-23 12:22 | CM ---
Addendum entered by Elba Blankenship 07/23/24 14:27:
[facility] expressed intrest in patient. CM called and left and sent updated clinicals via care port. await response.
Original Note:
Patient seen at bedside today with daughter. Patient indicated that he wants to continue on with treatment. Patient daughter requested and received updated FMLA paperwork from physician. CM will continue to follow for discharge planning needs.
Plan; referrals to SNF options
--- NOTE | 2024-07-23 13:32 | W.PN.NEPH.PH ---
Today's Communication / Plan
-
HD tomorrow
ongoing GOC disussion
Assessment/Plan
-
Impression:
ESRD MWF
Hypoxia/left lung atelectasis versus pneumonia
Large left pleural effusion s/p thoracentesis 06/21
CHF
Anemia
Hypertension hx
Hyponatremia
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
Hyperphosphatemia
PEG
Non-ST elevation CT
History of stroke with subsequent left hemiparesis dysarthria and dysphagia
Tunneled right HD IJ catheter
Chronic impacted right proximal humerus fracture
hypercalcemia
Plan:
hypercalcemia: suri increasing to 12.2 on low suri bath and on high dose of sensipar 120mg, PTH 1022, possible adenoma noted on US
highly suggest tertiary hyperparathyroidism -surg on hold while having GOC discussions
recurrent plerual effusion status post thoracentesisx5
cont TF with asp risk
stable hemodynamics
d/w pt and daughter at bedside in detail
Dialysis tomorrow
-
-
Date of Service: July 23, 2024
CC / HPI / ROS
-
Chief Complaint:
ESRD
History of Present Illness:
hemodynamically stable
Hemodialysis on Saturday schedule
calcium high despite sensipar at 12.2
Review of Systems:
No chest pain , oxygen
No fever
mild sob still
Labs
-
Labs:
WBC 10.7 10^3/uL (4.8-10.8) 07/23/24 08:21
RBC 3.60 10^6/uL (4.70-6.10) L 07/23/24 08:21
Hgb 10.4 g/dL (13.0-18.0) L 07/23/24 08:21
Hct 32.6 % (39.0-52.0) L 07/23/24 08:21
Plt Count 316 10^3/uL (130-400) 07/23/24 08:21
Sodium 139 mmol/L (135-145) 07/23/24 08:21
Potassium 4.3 mmol/L (3.5-5.1) 07/23/24 08:21
Chloride 98 mmol/L (98-107) 07/23/24 08:21
Carbon Dioxide 30 mmol/L (22-30) 07/23/24 08:21
BUN 50 mg/dl (9-20) H 07/23/24 08:21
Creatinine 3.0 mg/dL (0.7-1.3) H 07/23/24 08:21
eGFR 21.94 07/23/24 08:21
Glucose 106 mg/dl (70-99) H 07/23/24 08:21
Calcium 12.2 mg/dl (8.4-10.2) H 07/23/24 08:21
Phosphorus 2.5 mg/dl (2.5-4.5) 06/22/24 12:03
Plz-X-Fzfyghoccqf Pept > 02960 pg/ml 06/20/24 18:13
Albumin 2.3 g/dl (3.5-5.0) L 06/25/24 04:13
Physical Exam
-
Vital Signs:
Vital Signs
Temp Pulse Resp BP Pulse Ox
97.7 F 76 17 154/91 99
07/23/24 09:13 07/23/24 07:00 07/23/24 07:00 07/23/24 07:00 07/23/24 07:00
Cardiovascular:: Regular rate and rhythm
Respiratory:: Bilateral: Coarse
Lung Excursion:: Normal
Abdomen:: Nontender and Soft
Bowel Sounds:: Normal
Extremity Edema:: None: Bilateral:
Bender Catheter: No
--- NOTE | 2024-07-23 15:26 | WOUNDNOTE ---
[facility] RN Note: Patient's coccyx ulcer looks smaller with scabbed area when compared to last picture. His penis ulcer also appears to be progressing toward healing. Patient continues on Versa Care Air bed and demonstrated ability to turn self in bed.
He remains on PEG tube feeds. Heels remain intact and adhesive foam applied as ordered. Sacral and penis wound care already completed this shift. Continue current wound care. Heels off bed with pillow. RN Reagan updated.
[2024-07-23 15:29] VITALS: BP 155/97; PULSE 77; O2SAT 94
[2024-07-23 15:56] VITALS: BP 155/97
[2024-07-23 16:32] VITALS: BP 155/92; PULSE 77; O2SAT 94
[2024-07-23] MEDS: UNASYN IV (18:01)
[2024-07-23] MEDS: COZAAR 25 MG TUBE (18:01)
[2024-07-23] MEDS: CRESTOR 20 MG TUBE (18:01)
[2024-07-23] MEDS: HEPARIN SC ×2 (19:41→19:44)
[2024-07-23] MEDS: ROXICODONE 5 MG TUBE (19:48)
[2024-07-23] MEDS: MELATONIN 5 MG TUBE (22:24)
[2024-07-23] MEDS: FOLVITE 2 MG TUBE (22:24)
[2024-07-23 23:30] VITALS: BP 155/86
--- NOTE | 2024-07-24 00:30 | PTCARENOTE ---
Pt rang call pérez and requested ice chips. Pt only has a diet order for tube feeds; no oral diets ordered at this time. This sba underwriter let the pt know that although he is not technically ordered NPO, there is no order for ice chips therefore this RN
cannot give him ice chips; pt educated on high aspiration/pneumonia risk. Pt continued to ring and yell 'nurse' for the next hour, stating 'how come every other person has given me ice chips except you? I'm going to report you in the morning when
Dr. Marques gets here'. This RN offered to reach out to the GUM ROLLING MACHINE TENDER, to which pt stated 'I'll wait till the morning when the doctor gets here'. This RN reached out to AXEL Aguiar and explained that the pt wanted ice chips but was not ordered an oral
diet; GUM ROLLING MACHINE TENDER also notified that pt was becoming verbally abusive towards RN and PCT. AXEL Aguiar stated that the pt could have ice chips but that his diet order needed to be clarified in the morning. This RN relayed this information to the pt who stated
'it's a little late now, I'll wait until the morning for my ice chips. Thank you'. Will pass along to day shift RN.
[2024-07-24 06:00] VITALS: BMI 18.6
--- NOTE | 2024-07-24 07:51 | W.PN.HOSP.TC ---
Today's Communication/Plan
-
- HD today
- goals of care discussion
Assessment / Plan
Assessment / Plan
L mainstem bronchus obstruction secondary to secretions
B/l pleural effusions likely secondary to underlying CHF and ESRD
- aspiration risk
- hx CVA/peg tube on tube feeding
- CPT
- resp cx: Pseudomonas, completed 7 days abx
- cont flutter valve
- L thoracentesis 06/21 #1: 1450 cc straw-colored pleural fluid
- R thoracentesis 06/22 #1: 1100 cc of clear yellow pleural fluid.
- L thoracentesis 06/29 #2: 1750 cc of serosanguineous pleural fluid.
- L thoracentesis 07/08 #3: 750 cc of clear yellow pleural fluid.
- L thoracentesis 07/19 #4: 1600 cc of straw colored pleural fluid -- exudative effusion -- concern for empyema vs malignancy vs from HD
- bcx: no growth 72h
- 5 days of unasyn
- appreciate pulm input
NSTEMI
CHF
- trop max 10.7
- was on a heparin drip
- Echo: LVEF 50-55%
- ASA, statin
- hold BB due to recent severe bradycardia
Acute on chronic HFpEF
- proBNP elevated
- echo: LVEF 50-55%
- volume overload managed by HD
Hypercalcemia secondary to parathyroid adenoma and hyperparathyroidism secondary to renal dysfunction
- vit D deficiency
- on cinacalcit
- CT CAP: enlarged parathyroid
- thyroid us: parathyroid adenoma
- pamidronate x1
- surgery consulted - agreeable to perform when medically stable - possibly Saturday
Hx CVA w L hemiparesis, dysarthria, dysphagia
- cont tube feeding
- PT/OT
- PMR consult
ESRD on MWF HD
anemia of chronic disease
- HD due 07/08
- transfused 2 unit pRBCs
Severe calcific atherosclerotic plaque in the coronary arteries on CT Chest
Right chronically impacted humeral neck fracture -imaging finding on CT chest, needs to be verified with previous records
Hyponatremia
Recent Flu
Benign Hypertension
Hyperlipidemia
Carotid artery disease s/p R CEA
BPH
Depression
Diet: tube feeding
DVT Prophylaxis: Heparin SUBQ
Code Status: limited - DNI only
Anticipated Discharge: > 48 hours
Subjective/Interval History
-
Date of Service: July 24, 2024
Overnight, pt verbally abusive towards staff regarding ice chips, despite being NPO. HD today.
Objective Data
-
Labs:
Laboratory Results
07/24/24
06:00
WBC Pending
Hgb Pending
Hct Pending
Plt Count Pending
Sodium Pending
Potassium Pending
Chloride Pending
Carbon Dioxide Pending
BUN Pending
Creatinine Pending
Glucose Pending
Calcium Pending
Vital Signs:
Vital Signs
Temp Pulse Resp BP Pulse Ox
97.5 F 73 22 155/86 99
07/23/24 23:30 07/23/24 23:30 07/23/24 23:30 07/23/24 23:30 07/23/24 23:30
I&O
07/23/24 07/24/24 07/25/24
06:59 06:59 06:59
Intake Total 720 / 720 840 / 840
Balance 720 / 720 840 / 840
Review of Systems
-
History Source: Patient
Constitutional: Reports No Symptoms
Respiratory: Reports Trouble Breathing
Cardiac: Reports No Symptoms
Abdomen/GI: Reports No Symptoms
Musculoskeletal: Reports No Symptoms
Neuro: Reports No Symptoms
Physical Exam
-
General: Appears Chronically Ill and Cachectic
HEENT: Normocephalic and Atraumatic
Respiratory: Clear to Auscultation and Accessory Resp Muscle Use
Cardiac: Regular Rhythm and S1/S2
GI: Soft, Nontender, Nondistended, Normal Bowel Sounds and Peg Tube
Musculoskeletal: No Clubbing, No Cyanosis and No Edema
Skin: Warm and Dry
Neuro: Awake, Alert and Oriented
Psych: Calm
[2024-07-24] MEDS: HEPARIN 500 UNITS IV ×2 (08:15→09:15)
[2024-07-24 08:44] LABS: Hematocrit 29.3 % (39.0-52.0); Hemoglobin 9.4 g/dL (13.0-18.0); Mean Corp Hgb Conc. 32.1 g/dL (33.0-37.0); Mean Corpuscular Hgb 29.4 pg (27.0-31.0); Mean Corpuscular Volume 91.6 fL (80.0-94.0); Mean Platelet Volume 8.2 fL (7.4-10.4); Platelet Count 329 10^3/uL (130-400); White Blood Cell Count 13.7 10^3/uL (4.8-10.8)
[2024-07-24] MEDS: RETACRIT 2000 UNITS IV (09:23)
[2024-07-24 09:25] LABS: Blood Urea Nitrogen 73 mg/dl (9-20); Calcium 12.2 mg/dl (8.4-10.2); Carbon Dioxide 30 mmol/L (22-30); Chloride 99 mmol/L (98-107); Estimated Creatinine Clearance 15 ml/min; Glucose 97 mg/dl (70-99); Magnesium 3.1 mg/dl (1.6-2.3); Potassium 4.5 mmol/L (3.5-5.1); Sodium 137 mmol/L (135-145); eGFR 15.53
--- NOTE | 2024-07-24 09:59 | W.PN.NEPH.HD ---
Progress Note - Hemodialysis
-
Date of Service: July 24, 2024
Duration: 30 minutes and 3 hours
Potassium Bath: 3
Calcium Bath: 2.5
Opti-Dialyzer: 160
Ultrafiltration: Other (2-2.5kg)
Blood Flow: 400
Dialysate Flow: 600
Heparin: no
EPO: 4000
[2024-07-24 10:04] VITALS: BP 157/88
[2024-07-24] MEDS: FLEXBUMIN 25% FOR HEMODIALYSIS 12.5 GRAMS IV ×2 (10:04→11:07)
[2024-07-24] MEDS: MANNITOL 25% 12.5 GRAMS IV ×2 (10:04→11:07)
[2024-07-24] MEDS: HEPARIN 3600 UNITS INTRACATH (11:40)
[2024-07-24] MEDS: HEPARIN 5000 UNITS SC ×2 (12:40→21:21)
[2024-07-24] MEDS: SENSIPAR 120 MG TUBE (12:41)
[2024-07-24] MEDS: PREVACID 15 MG TUBE (12:42)
[2024-07-24] MEDS: WELLBUTRIN REGULAR RELEASE 150 MG TUBE ×2 (12:42→21:23)
[2024-07-24] MEDS: MIRALAX TUBE (12:42)
[2024-07-24] MEDS: LOW STRENGTH ASPIRIN 81 MG TUBE (12:42)
[2024-07-24] MEDS: ROBITUSSIN 200 MG TUBE ×3 (12:43→21:25)
[2024-07-24] MEDS: BACTROBAN 2% OINTMENT 1 APPLIC TOPICAL ×2 (12:44→21:20)
[2024-07-24] MEDS: ROBITUSSIN TUBE (13:03)
[2024-07-24] MEDS: XANAX 0.25 MG TUBE (13:25)
[2024-07-24 15:25] VITALS: BP 142/83
--- NOTE | 2024-07-24 15:42 | CM ---
CM updated patient that [facility] had agreed to accept patient but does not have any available beds or HD chairs at this time. Daughter to consider if CM can send referral to [facility]. CM will continue to follow for discharge planning needs.
PLan; SNF
[2024-07-24] MEDS: CRESTOR 20 MG TUBE (17:55)
[2024-07-24] MEDS: FOLVITE 2 MG TUBE (21:23)
[2024-07-24] MEDS: MELATONIN 5 MG TUBE (21:25)
[2024-07-24 23:07] VITALS: BP 149/91
[2024-07-25] MEDS: ROXICODONE 5 MG TUBE (02:50)
[2024-07-25 05:36] VITALS: BMI 18.4
[2024-07-25 07:00] VITALS: BP 155/89
[2024-07-25] MEDS: WELLBUTRIN REGULAR RELEASE 150 MG TUBE ×2 (08:20→20:16)
[2024-07-25] MEDS: PREVACID 15 MG TUBE (08:20)
[2024-07-25] MEDS: LOW STRENGTH ASPIRIN 81 MG TUBE (08:20)
[2024-07-25] MEDS: HEPARIN 5000 UNITS SC ×2 (08:20→20:16)
[2024-07-25] MEDS: BACTROBAN 2% OINTMENT 1 APPLIC TOPICAL ×2 (08:20→20:15)
[2024-07-25] MEDS: ROBITUSSIN 200 MG TUBE ×4 (08:21→21:10)
[2024-07-25] MEDS: MIRALAX 17 GRAMS TUBE (08:21)
[2024-07-25] MEDS: SENSIPAR 120 MG TUBE (08:22)
[2024-07-25 10:38] LABS: Hematocrit 32.1 % (39.0-52.0); Hemoglobin 10.3 g/dL (13.0-18.0); Mean Corp Hgb Conc. 32.1 g/dL (33.0-37.0); Mean Corpuscular Hgb 29.2 pg (27.0-31.0); Mean Corpuscular Volume 90.9 fL (80.0-94.0); Mean Platelet Volume 8.2 fL (7.4-10.4); Platelet Count 312 10^3/uL (130-400); Red Blood Cell Count 3.53 10^6/uL (4.70-6.10); Red Cell Dist. Width 16.1 % (11.5-14.5); White Blood Cell Count 11.8 10^3/uL (4.8-10.8)
[2024-07-25 11:04] LABS: Blood Urea Nitrogen 50 mg/dl (9-20); Calcium 12.4 mg/dl (8.4-10.2); Carbon Dioxide 29 mmol/L (22-30); Chloride 99 mmol/L (98-107); Estimated Creatinine Clearance 21 ml/min; Glucose 105 mg/dl (70-99); Magnesium 2.8 mg/dl (1.6-2.3); Potassium 4.2 mmol/L (3.5-5.1); Sodium 139 mmol/L (135-145); eGFR 22.85
--- NOTE | 2024-07-25 11:59 | W.PN.NEPH.PH ---
Today's Communication / Plan
-
Dialysis Saturday
Assessment/Plan
-
Impression:
ESRD MWF
Hypoxia/left lung atelectasis versus pneumonia
Large left pleural effusion s/p thoracentesis 06/21
CHF
Anemia
Hypertension hx
Hyponatremia
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
Hyperphosphatemia
PEG
Non-ST elevation [place]
History of stroke with subsequent left hemiparesis dysarthria and dysphagia
Tunneled right HD IJ catheter
Chronic impacted right proximal humerus fracture
hypercalcemia
Plan:
hypercalcemia: suri increasing to 12.2 on low suri bath and on high dose of sensipar 120mg, PTH 1022, possible adenoma noted on US
highly suggest tertiary hyperparathyroidism -surg on hold while having GOC discussions
recurrent plerual effusion status post thoracentesisx5
cont TF with asp risk
stable hemodynamics
d/w pt and daughter at bedside in detail
Dialysis Saturday
-
-
Date of Service: July 25, 2024
CC / HPI / ROS
-
Chief Complaint:
ESRD
History of Present Illness:
hemodynamically stable
Hemodialysis on Saturday schedule
calcium high despite sensipar at 12.2
Review of Systems:
No chest pain , oxygen
No fever
mild sob still
Labs
-
Labs:
WBC 11.8 10^3/uL (4.8-10.8) H 07/25/24 10:24
RBC 3.53 10^6/uL (4.70-6.10) L 07/25/24 10:24
Hgb 10.3 g/dL (13.0-18.0) L 07/25/24 10:24
Hct 32.1 % (39.0-52.0) L 07/25/24 10:24
Plt Count 312 10^3/uL (130-400) 07/25/24 10:24
Sodium 139 mmol/L (135-145) 07/25/24 10:24
Potassium 4.2 mmol/L (3.5-5.1) 07/25/24 10:24
Chloride 99 mmol/L (98-107) 07/25/24 10:24
Carbon Dioxide 29 mmol/L (22-30) 07/25/24 10:24
BUN 50 mg/dl (9-20) H 07/25/24 10:24
Creatinine 2.9 mg/dL (0.7-1.3) H 07/25/24 10:24
eGFR 22.85 07/25/24 10:24
Glucose 105 mg/dl (70-99) H 07/25/24 10:24
Calcium 12.4 mg/dl (8.4-10.2) H 07/25/24 10:24
Phosphorus 2.5 mg/dl (2.5-4.5) 06/22/24 12:03
Pir-D-Xxeqrjvrryo Pept > 42396 pg/ml 06/20/24 18:13
Albumin 2.3 g/dl (3.5-5.0) L 06/25/24 04:13
Physical Exam
-
Vital Signs:
Vital Signs
Temp Pulse Resp BP Pulse Ox
97.3 F 78 20 155/89 96
07/25/24 07:00 07/25/24 07:00 07/25/24 07:00 07/25/24 07:00 07/25/24 08:20
Cardiovascular:: Regular rate and rhythm
Respiratory:: Bilateral: Coarse
Lung Excursion:: Normal
Abdomen:: Nontender and Soft
Bowel Sounds:: Normal
Extremity Edema:: None: Bilateral:
Bender Catheter: No
--- NOTE | 2024-07-25 12:34 | W.PN.HOSP.TC ---
Today's Communication/Plan
-
see note
Assessment / Plan
Assessment / Plan
Left mainstem bronchus obstruction, recurrent aspiration -patient have increased secretion and potential for recurrent bronchus obstruction and related complication-- pulmonary toileting--aspiration risk
Leukocytosis/Hypothermia -WBC has trended down to normal. pt was noted to have been vomiting tube feeds 07/16--no fevers, no cough--likely aspiration pneumonitis--WBC returned to normal limits--will discontinue further antibiotics aspirin patient has
finished a 5-day course at this point.
Recurrent pleural effusion -patient underwent right-sided thoracentesis of 1.1 L. And left-sided thoracentesis of 1450ml, 1750 ml, 750ml, 1600ml. A Pleurx catheter was planned although insurance approval did not come through. will likely need
weekly thoracentesis set up.
Repeat chest x-ray showing left whiteout. Discussed with pulmonology and potential differential of left bronchus mucous plugging with atelectasis versus recurrence of left-sided effusion. IRAD consulted for ultrasound and possible thoracentesis.
Oxygen requirements remain stable and if patient in any respiratory distress will require to be upgraded to intermediate care unit level.
Acute hypoxic respiratory failure, ventilator dependent respiratory failure, s/p PEA/cardiac arrest -patient had episode of mucous plugging with respiratory arrest. Patient was bradycardic at that time and likely added to the problem. Patient
require ventilator support and was able to be extubated--back on O2-- Dyspnea has improved with x4 with thoracentesis. Remains at high risk of decompensation and further respiratory problems.
Hypercalcemia/parathyroid adenoma/secondary hyperparathyroidism -patient has significant hypercalcemia and likely secondary to ESRD/secondary hyperparathyroidism and parathyroid adenoma found on imaging. Parathyroid hormone close to 1000. Patient
has been maximized on Cinacalcet and also has been provided calcitonin/bisphosphonates. In light of refractory nature of hypercalcemia surgery has been consulted, patient is a candidate for minimally invasive parathyroidectomy once pulmonary status
stabilizes-
NSTEMI -patient was managed conservatively and has finished few days of heparin drip therapy. Echocardiogram showing ejection fraction of 50 to 55%.
Diastolic heart failure exacerbation -patient volume status being managed by hemodialysis, patient makes some urine.
Hx CVA w L hemiparesis, dysarthria, dysphagia-- cont tube feeding
ESRD on MWF HD--apprec renal
anemia of chronic disease- transfused 2 unit pRBCs
Severe calcific atherosclerotic plaque in the coronary arteries on CT Chest
Right chronically impacted humeral neck fracture -imaging finding on CT chest, needs to be verified with previous records
protein calorie malnutrition--cachectic, stage 2 pressure wound--on tube feeds--feel at least moderate if not severe
sacrum stage 2 pressure injury--cont local wound care---unclear to me if POA
Hyponatremia
Essential Hypertension
Hyperlipidemia
Carotid artery disease s/p R CEA
BPH
Depression
code status--DNI--wants chest compressions
07/23 repeat discussion regarding goal of care done with daughter who was visiting patient today. Patient have discussed with sculpture conservator regarding his moravian belief restricting him from signing up to hospice care. Patient understands that patient
will be in a skilled nursing with chronic morbidity and will require recurrent thoracentesis and hospital visits for any complications. Patient wants to continue with full medical care at this stage,
07/25 daughter updated about x-ray findings.
Total time spent : 54 mins
Anticipated Discharge: > 48 hours
Subjective/Interval History
-
Date of Service: July 25, 2024
Continues to have copious amount of secretions
Oxygen requirement stable
Not coughing up any phlegm
Objective Data
-
Labs:
Laboratory Results
07/25/24
10:24
WBC 11.8 H
Hgb 10.3 L
Hct 32.1 L
Plt Count 312
Sodium 139
Potassium 4.2
Chloride 99
Carbon Dioxide 29
BUN 50 H
Creatinine 2.9 H
Glucose 105 H
Calcium 12.4 H
Vital Signs:
Vital Signs
Temp Pulse Resp BP Pulse Ox
97.3 F 78 20 155/89 96
07/25/24 07:00 07/25/24 07:00 07/25/24 07:00 07/25/24 07:00 07/25/24 08:20
I&O
07/24/24 07/25/24 07/26/24
06:59 06:59 06:59
Intake Total 840 / 840
Balance 840 / 840
Review of Systems
-
Respiratory: Denies Cough or Trouble Breathing
Cardiac: Reports No Symptoms
Abdomen/GI: Reports No Symptoms
Physical Exam
-
General: No Apparent Distress and Comfortable
HEENT: Negative Oxygen
Respiratory: Other (decreased/absent left sided breath sound)
Cardiac: Regular Rhythm and S1/S2; Negative Murmur or Rub
GI: Soft and Nontender
Musculoskeletal: No Edema
Neuro: Awake, Alert, Oriented, No Motor Deficits and Nonfocal/Grossly Intact
Psych: Calm
--- NOTE | 2024-07-25 14:00 | W.PN.PUL3 ---
Today's Communication / Plan
-
Consult IR for left-sided thoracentesis
If patient is hypoxic then place right-lung down
Optimistically, his right lung appears improved compared to recent CXR on 07/19
Aspiration precautions
Prefer continued HD for volume removal, follow daily weights
Poor prognosis
Pulmonary service will continue to briefly follow
Assessment
-
Patient is a 60-year-old gentleman with known history of carotid artery disease status post right CEA in the past, end-stage renal disease on hemodialysis, hypertension, hyperlipidemia, HFrEF 40-45%, CVA, who [facility]
facility for worsening shortness of breath. Patient reportedly has been feeling short of breath over the last couple of weeks which has been progressively getting worse. Reported diagnosis of Flu-has been on Tamiflu. In view of worsening
respiratory status he was transferred to the emergency room for further workup. Imaging in the emergency room showing showed near complete collapse of the left lung with large pleural effusion as well as moderate pleural effusion on the right side.
Patient also was noted to have significantly elevated troponin along with sinus bradycardia. Patient was started on broad-spectrum antibiotics, aspirin as well as heparin drip for suspected NSTEMI and was admitted to hospitalist service. In view
of large effusion, interventional radiology and pulmonary service were requested for further input. Patient had thoracentesis performed with gradual improvement. Patient subsequently had a cardiopulmonary arrest and required CPR on 06/23 and CODE
STATUS was reversed from DNR to full code. Patient was intubated for 2 days and it was felt to be related to mucous plug obstructing left main bronchus. Patient was successfully extubated on 06/25/24.
Bilateral pleural effusions left > right status post thoracentesis x 4 since 06/21/2024
Status post intubation and mechanical ventilation-06/23/2024 through 06/25/2024
Cardiac arrest status post asystole-epi, CPR ROSC in 3 minutes
Sinus bradycardia - now normal heart rate
Lung atelectasis due to mucous plugging and pleural effusion
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
CHF with preserved EF
End-stage renal disease on hemodialysis
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
PEG placement
GERD
HTN
HLD
Hypothyroidism
Plan
Patient had CXR imaging today (07/25) which showed almost complete opacification of the left hemithorax
He had a similar presentation on 07/19/2024, and required thoracentesis at that time
Believe that this is a combination of atelectasis and pleural fluid
Consult IR for thoracentesis
Status post intubation 06/23/24 and extubated 06/25/2024
Aspiration precautions
Mucus clearing devices-he has tried vest therapy in the past without much success according to patient
Duonebs PRN
Chest x-ray 07/09/2023-small right pleural effusion, improved aeration of the left lung with some left basilar consolidation
Follow CXR occasional
CXR on 07/13 shows slight return off effusion but not significant for further therapeutic thora
Interventional radiology-thoracentesis performed 07/08/2024 urgently due to significant shortness of breath -- transudative pleural effusion
Thoracentesis L 07/08/24--750 mL of yellow pleural fluid- Tot P 3.2 - [facility] 87, culture neg
s/p L thora 06/29/24 1750: Tot P 2.9 - [facility] 108, culture/cyto neg
s/p R thora 06/22/24 1100, culture/cyto neg
s/p L thora 06/21/24 1450, culture/cyto neg
Follow chest x-ray PRN
Can hold off further taps if patient has mild fluid and no symptoms
Prefer to remove fluid via HD if able
Cultures reviewed
Sputum was cultured on 06/23/20247650-[id number] 7 days of antibiotics-suspected colonization rather than active pneumonia
Monitor off abx if no further fever/WBC count
Nephrology following-correspondence reviewed
Hemodialysis [facility]
Parathyroidectomy will likely be needed for persistent hypercalcemia-surgery evaluated-surgery once medically stable
HD planning continued with volume removal
Follow daily weights
DVT prophylaxis-on subcu heparin
Nutrition-on tube feeds
Bedside range of motion/physical therapy
PT/OT OOB later today post HD
Discharge planning per team
Reviewed with nursing
Family meeting
Dr. Garcia met with patient's daughter as well as ex-. Goals of care discussions took place in the presence of palliative care nurse. Patient's family requesting medical team to discuss again with the patient regarding his CODE STATUS and
wishes in future as he had been DNR/DNI in the past but was temporarily intubated in the setting of mucous plug.
Data:
CXR 05/2024: 1. Near complete opacification of the left hemithorax which is likely secondary to a large left pleural effusion and airspace consolidation (compressive atelectasis or pneumonia).
2. Moderate ground-glass opacity in the infrahilar right lower lung which could be subsegmental atelectasis or pneumonia.
3. Right IJ hemodialysis catheter in place.
4. Chronic impacted fracture of the right humeral neck.
CT Chest 05/2024: 1. Complete endobronchial obstruction of the left mainstem bronchus containing layering secretions. SEVERE NEAR COMPLETE AIRSPACE CONSOLIDATION of the LEFT UPPER and LOWER LOBES (either atelectasis or pneumonia).
2. LARGE LEFT PLEURAL EFFUSION.
3. Moderate to large right pleural effusion.
4. Moderate to severe cardiomegaly.
5. Severe calcific atherosclerotic plaque in the coronary arteries.
6. Right IJ hemodialysis catheter in place.
7. Chronic impacted fracture of the right proximal humerus.
Total time spent today was 37 minutes for this encounter. Time includes reviewing laboratory test/imaging results, reviewing pertinent medical records, obtaining and reviewing medical history, performing an appropriate exam, ordering medications,
tests and procedures. Time also includes documentation of this encounter, coordinating patient care and communicating with other healthcare professionals. Total time does not include separately billed tests performed on this date of service.
Patient seen and evaluated on 07/25/2024
Subjective Data
-
Date of Service:
Date of Service: July 25, 2024
Chief Complaint: Pulmonary Follow Up (Hypoxemic respiratory failure-bilateral pleural effusion) and Dyspnea Follow Up
Subjective:
Patient seen today at bedside. Resting in bed in no acute distress, has a wet cough at times. 4 L/min nasal cannula. No chest pain reported.
Review of Systems
General: Other (Negative unless mentioned above)
Objective Data
Data Reviewed
Vital Signs / I&O / Oxygen:
Vital Signs
Temp Pulse Resp BP Pulse Ox
97.3 F 78 20 155/89 96
07/25/24 07:00 07/25/24 07:00 07/25/24 07:00 07/25/24 07:00 07/25/24 08:20
Intake and Output
07/24/24 07/25/24 07/26/24
06:59 06:59 06:59
Intake Total 840 / 840
Balance 840 / 840
SaO2 [CPAP] 99
SaO2 [A/C] 99
SaO2 96
Nasal Cannula flow liters per 4
minute
Physical Exam
General: Respiratory Distress (n), Comfortable, Chills (negative) and Sweats (negative)
HEENT: Normocephalic, Anicteric, Moist Mucous Membranes and Other (poor dentition/oral hygiene)
Cardiovascular: S1-S2 and Peripheral Edema (negative)
Respiratory: Clear, Wheeze (negative), Crackles (negative), Rhonchi (negative), Accessory Resp Muscle Use (n), Stridor (n) and Other (Diminished breath sounds on the left)
GI: Soft, Non Distended, Non Tender and Normal Bowel Sounds
Neurology: Tremors (negative) and Other (Sleepy today)
Skin: Warm, Dry, Cyanosis (n) and Jaundice (negative)
Labs/Micro/Reports
Lab Data
07/25/24 10:24
07/25/24 10:24
Microbiology
07/19/24 08:47 Blood/Venous Blood Culture - Final
No Growth - Final Report
07/19/24 08:12 Blood/Venous Blood Culture - Final
No Growth - Final Report
07/19/24 13:22 Pleural Fluid Acid Fast Bacilli Smear - Preliminary
07/19/24 13:22 Pleural Fluid Acid Fast Bacilli Culture - Preliminary
07/19/24 13:23 Pleural Fluid Body Fluid Culture - Final
No Growth After 72 Hours
07/19/24 13:23 Pleural Fluid Gram Stain - Final
[2024-07-25 15:58] VITALS: BP 163/99
[2024-07-25] MEDS: CRESTOR 20 MG TUBE (17:26)
[2024-07-25] MEDS: COZAAR 25 MG TUBE (17:27)
[2024-07-25] MEDS: FOLVITE 2 MG TUBE (21:09)
[2024-07-25] MEDS: MELATONIN 5 MG TUBE (21:10)
[2024-07-25 23:50] VITALS: BP 154/88
[2024-07-25] MEDS: XANAX 0.25 MG TUBE (23:54)
[2024-07-26] MEDS: ROXICODONE 5 MG TUBE ×2 (00:01→20:44)
[2024-07-26 07:00] VITALS: BP 156/94
[2024-07-26 07:57] LABS: Hematocrit 30.9 % (39.0-52.0); Mean Corp Hgb Conc. 32.4 g/dL (33.0-37.0); Mean Corpuscular Hgb 29.4 pg (27.0-31.0); Mean Corpuscular Volume 90.9 fL (80.0-94.0); Mean Platelet Volume 8.4 fL (7.4-10.4); Platelet Count 324 10^3/uL (130-400); Red Cell Dist. Width 16.1 % (11.5-14.5); White Blood Cell Count 12.4 10^3/uL (4.8-10.8)
[2024-07-26] MEDS: HEPARIN 5000 UNITS SC ×2 (07:59→20:45)
[2024-07-26] MEDS: BACTROBAN 2% OINTMENT 1 APPLIC TOPICAL ×2 (07:59→20:45)
[2024-07-26] MEDS: PREVACID 15 MG TUBE (08:00)
[2024-07-26] MEDS: SENSIPAR 120 MG TUBE (08:00)
[2024-07-26] MEDS: MIRALAX TUBE (08:00)
[2024-07-26] MEDS: ROBITUSSIN 200 MG TUBE ×3 (08:00→22:39)
[2024-07-26] MEDS: LOW STRENGTH ASPIRIN 81 MG TUBE (08:00)
[2024-07-26] MEDS: WELLBUTRIN REGULAR RELEASE 150 MG TUBE ×2 (08:01→20:44)
[2024-07-26 08:19] LABS: Blood Urea Nitrogen 71 mg/dl (9-20); Calcium 12.7 mg/dl (8.4-10.2); Carbon Dioxide 28 mmol/L (22-30); Chloride 97 mmol/L (98-107); Estimated Creatinine Clearance 15 ml/min; Glucose 105 mg/dl (70-99); Potassium 4.3 mmol/L (3.5-5.1); Sodium 137 mmol/L (135-145); eGFR 16.01
[2024-07-26] MEDS: ZOFRAN 4 MG IV ×3 (11:47→23:44)
[2024-07-26] MEDS: ROBITUSSIN TUBE (12:02)
[2024-07-26 12:22] VITALS: BP 154/87; BP_SYST 74
[2024-07-26 13:03] VITALS: BP 139/78; BP_SYST 67
[2024-07-26 15:00] VITALS: BP 148/91
--- NOTE | 2024-07-26 15:08 | W.PN.HOSP.TC ---
Today's Communication/Plan
-
for thoracentesis - drained 1.15L
continue monitoring
discharge planning for SNF
Assessment / Plan
Assessment / Plan
Left mainstem bronchus obstruction, recurrent aspiration -patient have increased secretion and potential for recurrent bronchus obstruction and related complication-- pulmonary toileting--aspiration risk
Leukocytosis/Hypothermia -WBC has trended down to normal. pt was noted to have been vomiting tube feeds 07/16--no fevers, no cough--likely aspiration pneumonitis--WBC returned to normal limits--will discontinue further antibiotics aspirin patient has
finished a 5-day course at this point.
Recurrent pleural effusion -patient underwent right-sided thoracentesis of 1.1 L. And left-sided thoracentesis of 1450ml, 1750 ml, 750ml, 1600ml. A Pleurx catheter was planned although insurance approval did not come through. will likely need
weekly thoracentesis set up.
Repeat chest x-ray on Saturday showing lung whiteout. Discussed with pulmonology and concern of repeat reaccumulation of pleural effusion. IRAD did a bedside thoracentesis of 1.1 L pleural fluid. Patient post-thoracentesis x-ray showing
appropriate expansion of left lung.
Acute hypoxic respiratory failure, ventilator dependent respiratory failure, s/p PEA/cardiac arrest -patient had episode of mucous plugging with respiratory arrest. Patient was bradycardic at that time and likely added to the problem. Patient
require ventilator support and was able to be extubated--back on O2-- Dyspnea has improved with x4 with thoracentesis. Remains at high risk of decompensation and further respiratory problems.
Hypercalcemia/parathyroid adenoma/secondary hyperparathyroidism -patient has significant hypercalcemia and likely secondary to ESRD/secondary hyperparathyroidism and parathyroid adenoma found on imaging. Parathyroid hormone close to 1000. Patient
has been maximized on Cinacalcet and also has been provided calcitonin/bisphosphonates. In light of refractory nature of hypercalcemia surgery has been consulted, patient is a candidate for minimally invasive parathyroidectomy once pulmonary status
stabilizes-
NSTEMI -patient was managed conservatively and has finished few days of heparin drip therapy. Echocardiogram showing ejection fraction of 50 to 55%.
Diastolic heart failure exacerbation -patient volume status being managed by hemodialysis, patient makes some urine.
Hx CVA w L hemiparesis, dysarthria, dysphagia-- cont tube feeding
ESRD on MWF HD--apprec renal
anemia of chronic disease- transfused 2 unit pRBCs
Severe calcific atherosclerotic plaque in the coronary arteries on CT Chest
Right chronically impacted humeral neck fracture -imaging finding on CT chest, needs to be verified with previous records
protein calorie malnutrition--cachectic, stage 2 pressure wound--on tube feeds--feel at least moderate if not severe
sacrum stage 2 pressure injury--cont local wound care---unclear to me if POA
Hyponatremia
Essential Hypertension
Hyperlipidemia
Carotid artery disease s/p R CEA
BPH
Depression
code status--DNI--wants chest compressions
07/23 repeat discussion regarding goal of care done with daughter who was visiting patient today. Patient have discussed with broadcasting equipment mechanic regarding his buddhism belief restricting him from signing up to hospice care. Patient understands that patient
will be in a prison with chronic morbidity and will require recurrent thoracentesis and hospital visits for any complications. Patient wants to continue with full medical care at this stage,
07/25 daughter updated about x-ray findings.
Anticipated Discharge: 24 - 48 hours
Subjective/Interval History
-
Date of Service: July 26, 2024
Not voicing any complaints
Oximetry requirement Remained stable
Objective Data
-
Labs:
Laboratory Results
07/26/24
07:21
WBC 12.4 H
Hgb 10.0 L
Hct 30.9 L
Plt Count 324
Sodium 137
Potassium 4.3
Chloride 97 L
Carbon Dioxide 28
BUN 71 H
Creatinine 3.9 H
Glucose 105 H
Calcium 12.7 H
Vital Signs:
Vital Signs
Temp Pulse Resp BP Pulse Ox
98.2 F 67 18 139/78 95
07/26/24 12:22 07/26/24 13:03 07/26/24 13:03 07/26/24 13:03 07/26/24 13:30
I&O
07/25/24 07/26/24 07/27/24
06:59 06:59 06:59
Intake Total 600 / 600
Balance 600 / 600
Review of Systems
-
Respiratory: Reports No Symptoms
Cardiac: Reports No Symptoms
Abdomen/GI: Reports No Symptoms
Physical Exam
-
General: No Apparent Distress and Comfortable
HEENT: Negative Oxygen
Respiratory: Other (decreased/absent left sided breath sound)
Cardiac: Regular Rhythm and S1/S2; Negative Murmur or Rub
GI: Soft and Nontender
Musculoskeletal: No Edema
Neuro: Awake, Alert, Oriented, No Motor Deficits and Nonfocal/Grossly Intact
Psych: Calm
--- NOTE | 2024-07-26 16:12 | W.PN.NEPH.PH ---
Today's Communication / Plan
-
Dialysis tomorrow
Assessment/Plan
-
Impression:
ESRD MWF
Hypoxia/left lung atelectasis versus pneumonia
Large left pleural effusion s/p thoracentesis 06/21
CHF
Anemia
Hypertension hx
Hyponatremia
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
Hyperphosphatemia
PEG
Non-ST elevation [place]
History of stroke with subsequent left hemiparesis dysarthria and dysphagia
Tunneled right HD IJ catheter
Chronic impacted right proximal humerus fracture
hypercalcemia
Plan:
hypercalcemia: suri increasing to 12.2 on low suri bath and on high dose of sensipar 120mg, PTH 1022, possible adenoma noted on US
highly suggest tertiary hyperparathyroidism -surg on hold while having GOC discussions
recurrent plerual effusion status post thoracentesisx5 and again yesterday
cont TF with asp risk
stable hemodynamics
Increased Sensipar from 120 mg daily to 90 mg twice daily
Dialysis Saturday
-
-
Date of Service: July 26, 2024
CC / HPI / ROS
-
Chief Complaint:
ESRD
History of Present Illness:
hemodynamically stable
Hemodialysis on Saturday schedule
calcium high despite sensipar at 12.2
Review of Systems:
No chest pain , oxygen
No fever
mild sob still
Labs
-
Labs:
WBC 12.4 10^3/uL (4.8-10.8) H 07/26/24 07:21
RBC 3.40 10^6/uL (4.70-6.10) L 07/26/24 07:21
Hgb 10.0 g/dL (13.0-18.0) L 07/26/24 07:21
Hct 30.9 % (39.0-52.0) L 07/26/24 07:21
Plt Count 324 10^3/uL (130-400) 07/26/24 07:21
Sodium 137 mmol/L (135-145) 07/26/24 07:21
Potassium 4.3 mmol/L (3.5-5.1) 07/26/24 07:21
Chloride 97 mmol/L (98-107) L 07/26/24 07:21
Carbon Dioxide 28 mmol/L (22-30) 07/26/24 07:21
BUN 71 mg/dl (9-20) H 07/26/24 07:21
Creatinine 3.9 mg/dL (0.7-1.3) H 07/26/24 07:21
eGFR 16.01 07/26/24 07:21
Glucose 105 mg/dl (70-99) H 07/26/24 07:21
Calcium 12.7 mg/dl (8.4-10.2) H 07/26/24 07:21
Phosphorus 2.5 mg/dl (2.5-4.5) 06/22/24 12:03
Nff-Q-Fihjoihgtwi Pept > 47157 pg/ml 06/20/24 18:13
Albumin 2.3 g/dl (3.5-5.0) L 06/25/24 04:13
Physical Exam
-
Vital Signs:
Vital Signs
Temp Pulse Resp BP Pulse Ox
98.2 F 67 18 139/78 95
07/26/24 12:22 07/26/24 13:03 07/26/24 13:03 07/26/24 13:03 07/26/24 13:30
Cardiovascular:: Regular rate and rhythm
Respiratory:: Bilateral: Coarse
Lung Excursion:: Normal
Abdomen:: Nontender and Soft
Bowel Sounds:: Normal
Extremity Edema:: None: Bilateral:
Bender Catheter: No
[2024-07-26] MEDS: CRESTOR 20 MG TUBE (17:17)
[2024-07-26] MEDS: COZAAR 25 MG TUBE (17:28)
--- NOTE | 2024-07-26 18:10 | W.PN.PUL3 ---
Today's Communication / Plan
-
Left-sided pleural effusion continues to increasing size, and he required thoracentesis today which resulted in significant improvement in left lung aeration
Could consider indwelling tunnelled pleural catheter, but ideally his fluid status should be optimized via hemodialysis
Aspiration precautions
Follow daily weights
Poor prognosis - recommend palliative care consult
No additional recommendations at this time. Pulmonary service will now sign off. Please reconsult if there are any additional questions/concerns, or if patient's respiratory status deteriorates.
Assessment
-
Patient is a 60-year-old gentleman with known history of carotid artery disease status post right CEA in the past, end-stage renal disease on hemodialysis, hypertension, hyperlipidemia, HFrEF 40-45%, CVA, who [facility] worsening shortness of breath. Patient reportedly has been feeling short of breath over the last couple of weeks which has been progressively getting worse. Reported diagnosis of Flu-has been on Tamiflu. In view of worsening
respiratory status he was transferred to the emergency room for further workup. Imaging in the emergency room showing showed near complete collapse of the left lung with large pleural effusion as well as moderate pleural effusion on the right side.
Patient also was noted to have significantly elevated troponin along with sinus bradycardia. Patient was started on broad-spectrum antibiotics, aspirin as well as heparin drip for suspected NSTEMI and was admitted to hospitalist service. In view
of large effusion, interventional radiology and pulmonary service were requested for further input. Patient had thoracentesis performed with gradual improvement. Patient subsequently had a cardiopulmonary arrest and required CPR on 06/23 and CODE
STATUS was reversed from DNR to full code. Patient was intubated for 2 days and it was felt to be related to mucous plug obstructing left main bronchus. Patient was successfully extubated on 06/25/24.
Bilateral pleural effusions left > right status post thoracentesis x 4 since 06/21/2024, and just had another thoracentesis today (07/26) removing 1.15 L of exudative fluid
Status post intubation and mechanical ventilation-06/23/2024 through 06/25/2024
Cardiac arrest status post asystole-epi, CPR ROSC in 3 minutes
Sinus bradycardia - now normal heart rate
Lung atelectasis due to mucous plugging and pleural effusion
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
CHF with preserved EF
End-stage renal disease on hemodialysis
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
PEG placement
GERD
HTN
HLD
Hypothyroidism
Plan
Patient had CXR imaging on 07/25 which showed almost complete opacification of the left hemithorax
He had a similar presentation on 07/19/2024, and required thoracentesis at that time
Believe that this is a combination of atelectasis and pleural fluid
IR performed thoracentesis with today removing 1.15 L; post thoracentesis CXR shows marked improvement in left lung aeration
Status post intubation 06/23/24 and extubated 06/25/2024
Aspiration precautions
Mucus clearing devices-he has tried vest therapy in the past without much success according to patient
Duonebs PRN
Chest x-ray 07/09/2023-small right pleural effusion, improved aeration of the left lung with some left basilar consolidation
Follow CXR occasional
CXR on 07/13 shows slight return off effusion but not significant for further therapeutic thora
Interventional radiology-thoracentesis performed 07/08/2024 urgently due to significant shortness of breath -- transudative pleural effusion
Thoracentesis L 07/08/24--750 mL of yellow pleural fluid- Tot P 3.2 - [facility] 87, culture neg
s/p L thora 06/29/24 1750: Tot P 2.9 - [facility] 108, culture/cyto neg
s/p R thora 06/22/24 1100, culture/cyto neg
s/p L thora 06/21/24 1450, culture/cyto neg
Follow chest x-ray PRN
Can hold off further taps if patient has mild fluid and no symptoms
Prefer to remove fluid via HD if able
Cultures reviewed
Sputum was cultured on 06/23/20243089-[id number] 7 days of antibiotics-suspected colonization rather than active pneumonia
Monitor off abx if no further fever/WBC count
Nephrology following-correspondence reviewed
Hemodialysis Gmgxjo-Gdotcywfv-Sxlmmj
Parathyroidectomy will likely be needed for persistent hypercalcemia-surgery evaluated-surgery once medically stable
HD planning continued with volume removal
Follow daily weights
DVT prophylaxis-on subcu heparin
Nutrition-on tube feeds
Bedside range of motion/physical therapy
Discharge planning per team
Reviewed with nursing
Poor prognosis
Recommend palliative care consult
No additional recommendations at this time. Pulmonary service will now sign off. Thank you for allowing us to be involved in the care of this patient. Please reconsult if there are any additional questions/concerns, or if patient's respiratory
status deteriorates.
Family meeting
Dr. Garcia met with patient's daughter as well as ex-. Goals of care discussions took place in the presence of palliative care nurse. Patient's family requesting medical team to discuss again with the patient regarding his CODE STATUS and
wishes in future as he had been DNR/DNI in the past but was temporarily intubated in the setting of mucous plug.
Data:
CXR 05/2024: 1. Near complete opacification of the left hemithorax which is likely secondary to a large left pleural effusion and airspace consolidation (compressive atelectasis or pneumonia).
2. Moderate ground-glass opacity in the infrahilar right lower lung which could be subsegmental atelectasis or pneumonia.
3. Right IJ hemodialysis catheter in place.
4. Chronic impacted fracture of the right humeral neck.
CT Chest 05/2024: 1. Complete endobronchial obstruction of the left mainstem bronchus containing layering secretions. SEVERE NEAR COMPLETE AIRSPACE CONSOLIDATION of the LEFT UPPER and LOWER LOBES (either atelectasis or pneumonia).
2. LARGE LEFT PLEURAL EFFUSION.
3. Moderate to large right pleural effusion.
4. Moderate to severe cardiomegaly.
5. Severe calcific atherosclerotic plaque in the coronary arteries.
6. Right IJ hemodialysis catheter in place.
7. Chronic impacted fracture of the right proximal humerus.
Total time spent today was 41 minutes for this encounter. Time includes reviewing laboratory test/imaging results, reviewing pertinent medical records, obtaining and reviewing medical history, performing an appropriate exam, ordering medications,
tests and procedures. Time also includes documentation of this encounter, coordinating patient care and communicating with other healthcare professionals. Total time does not include separately billed tests performed on this date of service.
Subjective Data
-
Date of Service:
Date of Service: July 26, 2024
Chief Complaint: Pulmonary Follow Up (Hypoxemic respiratory failure-bilateral pleural effusion) and Dyspnea Follow Up
Subjective:
Patient was seen today after thoracentesis with postprocedure CXR showing marked improvement of left lung aeration. He is otherwise resting in bed, on 4 L/min nasal cannula. He says he is breathing much better after the thoracentesis (1.15 L
removed). He currently denies chest pain, shoulder pain, BILLY, nausea, fevers or chills.
Review of Systems
General: Other (Negative unless mentioned above)
Objective Data
Data Reviewed
Vital Signs / I&O / Oxygen:
Vital Signs
Temp Pulse Resp BP Pulse Ox
97.5 F 73 20 156/94 96
07/26/24 07:00 07/26/24 07:00 07/26/24 07:00 07/26/24 07:00 07/26/24 08:20
Intake and Output
07/25/24 07/26/24 07/27/24
06:59 06:59 06:59
Intake Total 600 / 600
Balance 600 / 600
SaO2 [CPAP] 99
SaO2 [A/C] 99
SaO2 96
Nasal Cannula flow liters per 4
minute
Physical Exam
General: Respiratory Distress (n), Comfortable, Chills (negative) and Sweats (negative)
HEENT: Normocephalic, Anicteric, Moist Mucous Membranes and Other (poor dentition/oral hygiene)
Cardiovascular: S1-S2 and Peripheral Edema (negative)
Respiratory: Clear, Wheeze (negative), Crackles (negative), Rhonchi (negative), Accessory Resp Muscle Use (n), Stridor (n) and Other (Diminished breath sounds on the left)
GI: Soft, Non Distended, Non Tender and Normal Bowel Sounds
Neurology: Awake, Alert and Tremors (negative)
Skin: Warm, Dry, Cyanosis (n) and Jaundice (negative)
Labs/Micro/Reports
Lab Data
07/26/24 07:21
07/26/24 07:21
Microbiology
07/19/24 08:47 Blood/Venous Blood Culture - Final
No Growth - Final Report
07/19/24 08:12 Blood/Venous Blood Culture - Final
No Growth - Final Report
07/19/24 13:22 Pleural Fluid Acid Fast Bacilli Smear - Preliminary
07/19/24 13:22 Pleural Fluid Acid Fast Bacilli Culture - Preliminary
[2024-07-26] MEDS: SENSIPAR 90 MG TUBE (20:42)
[2024-07-26] MEDS: FOLVITE 2 MG TUBE (20:43)
[2024-07-26] MEDS: MELATONIN 5 MG TUBE (20:44)
[2024-07-26 23:57] VITALS: BP 131/78
--- NOTE | 2024-07-27 04:39 | PTCARENOTE ---
Patient had 4 watery BMs so far this shift. BREAKDOWN MAN notified via TT. She will change daily Miralax to PRN and add probiotic.
[2024-07-27] MEDS: VISBIOME 2 CAP TUBE (05:16)
[2024-07-27 06:00] VITALS: BMI 18.0
[2024-07-27] MEDS: ZOFRAN 4 MG IV (06:21)
--- NOTE | 2024-07-27 06:32 | PTCARENOTE ---
Stool appeared burguny/brick color. Heme test +. No clots or streaks of blood. LADLE MECHANIC made aware via TT.
--- NOTE | 2024-07-27 06:38 | W.PN.UPDATE ---
Update Note
Progress Note Update
-Patient had moderate amount of burgundy bm, + hemetest. Vital signs within baseline, CBC result still pending.
-Will monitor h&h q 6hrs
-Will start IV PPI daily and gi consult placed.
[2024-07-27 08:43] LABS: Hematocrit 28.8 % (39.0-52.0); Hemoglobin 9.2 g/dL (13.0-18.0); Mean Corp Hgb Conc. 31.9 g/dL (33.0-37.0); Mean Corpuscular Hgb 29.1 pg (27.0-31.0); Mean Corpuscular Volume 91.1 fL (80.0-94.0); Mean Platelet Volume 8.8 fL (7.4-10.4); Platelet Count 320 10^3/uL (130-400); Red Blood Cell Count 3.16 10^6/uL (4.70-6.10); Red Cell Dist. Width 16.4 % (11.5-14.5); White Blood Cell Count 13.5 10^3/uL (4.8-10.8)
[2024-07-27] MEDS: FLEXBUMIN 25% FOR HEMODIALYSIS 12.5 GRAMS IV ×2 (09:35→10:40)
[2024-07-27] MEDS: MANNITOL 25% 12.5 GRAMS IV ×2 (09:35→10:39)
[2024-07-27 09:36] LABS: Blood Urea Nitrogen 101 mg/dl (9-20); Carbon Dioxide 25 mmol/L (22-30); Chloride 96 mmol/L (98-107); Estimated Creatinine Clearance 12 ml/min; Glucose 101 mg/dl (70-99); Magnesium 3.1 mg/dl (1.6-2.3); Potassium 4.7 mmol/L (3.5-5.1); Sodium 135 mmol/L (135-145); eGFR 12.48
[2024-07-27] MEDS: RETACRIT 4000 UNITS IV (09:36)
--- NOTE | 2024-07-27 10:39 | CON.GI ---
Addendum entered and electronically signed by Dottie Oneill MD 07/27/24 14:31:
Will sign off and will be available as needed
Addendum entered and electronically signed by Dottie Oneill MD 07/27/24 14:30:
I saw and examined the patient.
The TOWER HELPER's note was reviewed and I agree with the note.
Comment: This is a 68-year-old male with complex medical history as listed below with past medical history of end-stage renal disease on hemodialysis, CVA, status post PEG tube, parathyroid adenoma with hypercalcemia, non-ST elevation [place] and rest as
below currently living at a custodial presented on 06/20 for shortness of breath and cough subsequently he had a PEA cardiac arrest on 06/23 secondary to a mucous plug obstructing left bronchus and was intubated required CPR and was extubated on
06/25. He also has pleural effusion that required multiple thoracenteses. He had an episode of blood mixed with the stool overnight and since then he has had 2 more bowel movements which have been brown and has remained stable. He does have
occasional constipation, recently denies any straining or hard stool. He is tolerating tube feeds.
Assessment and plan isolated episode of small amount of blood in the stool and hemoglobin remained stable could have been related to hemorrhoids less likely diverticulosis or ischemic colitis cannot rule out neoplasm. his last colonoscopy was about
10 years ago. Use MiraLAX as needed when he is constipated currently denies any constipation. He does not want a colonoscopy and would be high risk given his comorbidities will hold on it for now unless he has further active rectal bleeding. if
family and patient change their mind and decide to proceed with colonoscopy would initially do a virtual CT. Continue PEG tube feeds he is tolerating them well currently.
Original Note:
Consultation
-
Date/Time Consultation Requested: 07/27/24 9635
Date/Time Consultation Performed: 07/27/24 1015
Requesting Provider: TRAVIS Howe
Performing Provider: Dr. Oneill/TRAVIS Mobley
Reason for Consultation: rectal bleeding
Medical History
Chief Complaint / HPI
Chief Complaint: Shortness of breath and cough
History of Present Illness:
68-year-old male with past medical history end-stage renal disease on hemodialysis, congestive heart failure with reduced ejection fraction, CVA with left hemiparesis and dysphagia status post right CEA, hypertension, hyperlipidemia, status post PEG
tube, hypothyroidism, GERD, secondary hyperparathyroidism, T7 and T11 compression fractures, non-ST elevated [place] currently residing at custodial facility who presents to the emergency room on 06/20/2024 with worsening shortness of breath and
cough. Had a mucous plug obstructing left bronchus. Had cardiopulmonary arrest/asystole requiring CPR epinephrine on 06/23/2024. Intubated 06/23/2024 status post extubation 06/25/2024. The patient has bilateral pleural effusions left greater than
right status post bilateral thoracentesis on 06/29/2024. This was felt secondary to related congestive heart failure and end-stage renal disease. Patient required repeat thoracentesis on the left on 07/08/2024, Developed a repeat pleural effusion
with dyspnea and required repeat thoracentesis on 07/26/2024. Goals of care discussion ongoing. We are asked to evaluate as patient had an episode of blood mixed in stool overnight. Patient has since had 2 episodes of brown loose stool since then.
Patient fed via PEG tube. Denies any abd pain. Last colonoscopy was in [place] 10 years ago without any known abnormalities. No family hx of GI malignancy or IBD. Patient has been having loose stools here. Hgb at baseline. Discussed with patient
who is declining any GI procedures. Discussed with RN.
Past Medical History
Past Medical History: Other ( end-stage renal disease on hemodialysis, congestive heart failure with reduced ejection fraction, CVA with left hemiparesis and dysphagia status post right CEA, hypertension, hyperlipidemia, status post PEG tube,
hypothyroidism, GERD, secondary hyperparathyroidism, T7 and T11 compression fractures,)
Past Surgical History: Other (r cea, permacath, PEG)
Social History
Tobacco: Non-Smoker
Alcohol: None
Drug: None
Personal:
Living: Retirement
Family History
Family History: Other (No fam hx GI malignancy or IBD)
Allergies / Home Medications
Allergy/AdvReac Type Severity Reaction Status Date / Time
No Known Allergies Allergy Unverified 06/20/24 18:04
�Medication �Instructions �Recorded
Pantoprazole Oral Packet 2mg/1ml 10 mg feeding tube DAILY 06/20/24
Gastrointestinal Issue
acetaminophen 325 mg tablet 650 mg feeding tube Q6HPRN PRN 06/20/24
(Tylenol) MILD PAIN
albuterol sulfate 2.5 mg/3 mL 2.5 mg inhalation R Q4HPRN PRN SOB 06/20/24
(0.083 %) solution for nebulization
amlodipine 10 mg tablet (Norvasc) 10 mg feeding tube DAILY Blood 06/20/24
Pressure
aspirin 81 mg tablet,delayed 81 mg feeding tube DAILY Blood 06/20/24
release Clot Prevention/Tx
bisacodyl 10 mg rectal suppository 10 mg HI DAILYPRN PRN IF NO BM 06/20/24
(Dulcolax (bisacodyl)) AFTR SUROLOSE
bumetanide 1 mg tablet 1 mg feeding tube MOWEFR Fluid 06/20/24
Retention/Swelling
bumetanide 1 mg tablet 4 mg feeding tube LORENZO@0800 Fluid 06/20/24
Retention/Swelling
bupropion HCl 100 mg tablet 150 mg PO BID VIA PEG-TUBE 06/20/24
carboxymethylcellulose 0.5 1 drp BOTH EYES Q2HPRN PRN dry eyes 06/20/24
%-glycerin 0.9 % eye drops
(Refresh Optive)
carvedilol 6.25 mg tablet (Coreg) 6.25 mg feeding tube BID Blood 06/20/24
Pressure
cinacalcet 60 mg tablet 120 mg PO MOWE@1300 VIA PEG-TUBE 06/20/24
folic acid 1 mg tablet 2 mg feeding tube HS Supplement 06/20/24
hydralazine 25 mg tablet 25 mg feeding tube QID Blood 06/20/24
Pressure
losartan 25 mg tablet 25 mg feeding tube SuTuThSa@1900 06/20/24
Blood Pressure
melatonin 5 mg tablet 5 mg feeding tube HS Sleep 06/20/24
oseltamivir 30 mg capsule (Tamiflu) 30 mg feeding tube MOWEFR AFTER HD 06/20/24
rosuvastatin 5 mg tablet (Crestor) 5 mg feeding tube HS cholesterol 06/20/24
sevelamer carbonate 0.8 gram oral 0.8 g feeding tube AC Kidney 06/20/24
powder packet (Renvela) Disease
tamsulosin 0.4 mg capsule (Flomax) 0.4 mg PO MOWEFR VIA PEG-TUBE 06/20/24
Review of Systems
-
All other systems: A 12 pt ROS was Negative except as stated above in HPI
Vital Signs
Temp Pulse Resp BP Pulse Ox
97.6 F 71 18 131/78 100
07/26/24 23:57 07/26/24 23:57 07/26/24 23:57 07/26/24 23:57 07/27/24 05:18
Physical Exam
Exam
General: Other (appears chronically ill, on HD)
HEENT: Anicteric
Respiratory: Clear (anterior)
Cardiac: Regular Rhythm
GI: Soft, Non Tender, Non Distended, Normal Bowel Sounds and Other (PEG LUQ )
Rectal: Other (looked at anus without any external lesions, no signs of bleeding externally, mepilex on sacrum)
Skin: Warm and Dry
Neuro: AO x 3
Psych: Calm
Results
WBC 13.5 10^3/uL (4.8-10.8) H 07/27/24 08:32
Hgb 9.2 g/dL (13.0-18.0) L 07/27/24 08:32
Hct 28.8 % (39.0-52.0) L 07/27/24 08:32
MCV 91.1 fL (80.0-94.0) 07/27/24 08:32
Plt Count 320 10^3/uL (130-400) 07/27/24 08:32
Absolute Neuts (auto) 5.2 10^3/uL (1.4-6.5) 06/20/24 18:13
APTT 74.0 Sec (23.4-35.0) H 06/24/24 03:32
Sodium 135 mmol/L (135-145) 07/27/24 08:32
Potassium 4.7 mmol/L (3.5-5.1) 07/27/24 08:32
Chloride 96 mmol/L (98-107) L 07/27/24 08:32
Carbon Dioxide 25 mmol/L (22-30) 07/27/24 08:32
BUN 101 mg/dl (9-20) H* 07/27/24 08:32
Creatinine 4.8 mg/dL (0.7-1.3) H* 07/27/24 08:32
Calcium 12.0 mg/dl (8.4-10.2) H 07/27/24 08:32
Total Bilirubin 0.5 mg/dl (0.2-1.3) 06/25/24 04:13
AST 38 U/L (17-59) 06/25/24 04:13
ALT 43 U/L (0-50) 06/25/24 04:13
Alkaline Phosphatase 126 U/L (38-126) 06/25/24 04:13
Hep Bs Antibody Indeterminate 07/10/24 08:18
Hep B Core Total Ab Negative (Negative) 07/10/24 08:18
Hepatitis C Antibody Negative (Negative) 07/10/24 08:18
Diagnostic Image Results:
CT Chest Abd/Pelvis 06/24/24:
IMPRESSION: Moderate bilateral pleural effusions, right larger than left. Both improved.
Mild right lower lobe consolidation. Stable. Moderate left lower lobe consolidation. Improved. Both concerning for pneumonia.
Mild cardiomegaly. Improved.
Enhancing mass posterior to the left thyroid gland. Differential includes exophytic thyroid nodule, parathyroid mass and lymphadenopathy. Thyroid ultrasound recommended.
Bilateral adrenal hyperplasia. Stable
Mild bilateral renal atrophy.
Mild abdominopelvic ascites.
Moderate diffuse bladder wall thickening. This can be seen with cystitis or bladder outlet obstruction.
Mild prostate hypertrophy.
Findings suggestion moderate volume overload or third spacing.
T7 and T11 compression fractures. Stable. L1 area not imaged previously for comparison
Prior GI Procedures:
Colonoscopy: Per patient '10 year ago in [facility]' 'okay' records not available to us
Assessment / Plan
-
68-year-old male with past medical history end-stage renal disease on hemodialysis, congestive heart failure with reduced ejection fraction, CVA with left hemiparesis and dysphagia status post right CEA, hypertension, hyperlipidemia, status post PEG
tube, hypothyroidism, GERD, secondary hyperparathyroidism, T7 and T11 compression fractures, non-ST elevated [place] currently residing at custodial facility who presents to the emergency room on 06/20/2024 with worsening shortness of breath and
cough. Had a mucous plug obstructing left bronchus. Had cardiopulmonary arrest/asystole requiring CPR epinephrine on 06/23/2024. Intubated 06/23/2024 status post extubation 06/25/2024. Recurrent left pleural effusions with requiring repeat
thoracenteses. Asked to evaluated for blood in stool overnight. Patient with isolated event. Had 2 episodes og brown loose stools since then. Hgb stable. VSS. Patient declines any GI procedures.
Impression:
Isolated episode of blood in stool
--On ASA and Heparin sq (ok to continue both)
--Hgb stable
--Patient with brown loose stool after
Plan:
-Can continue Pantoprazole although no signs of upper GI bleeding.
-Patient declining GI procedure. He would be poor candidate for sedation given respiratory status.
-Hgb and VSS
-Ok to resume PEG tube feeds.
-
-
Thank you for consultation and allowing me to participate in the patient's care. Please call the pathology transcriptionist GI physician during the after hours with any questions or concerns.
[2024-07-27] MEDS: BACTROBAN 2% OINTMENT 1 APPLIC TOPICAL ×2 (11:31→22:03)
[2024-07-27] MEDS: ROBITUSSIN 200 MG TUBE ×3 (11:31→22:03)
[2024-07-27] MEDS: PREVACID 15 MG TUBE (11:32)
[2024-07-27] MEDS: WELLBUTRIN REGULAR RELEASE 150 MG TUBE ×2 (11:32→22:01)
[2024-07-27] MEDS: LOW STRENGTH ASPIRIN 81 MG TUBE (11:32)
[2024-07-27] MEDS: PROTONIX IV 40 MG IV ×2 (11:32→22:02)
[2024-07-27] MEDS: SENSIPAR 90 MG TUBE ×2 (11:33→22:02)
[2024-07-27] MEDS: HEPARIN 5000 UNITS SC ×2 (11:33→22:03)
[2024-07-27] MEDS: ROBITUSSIN TUBE (11:37)
--- NOTE | 2024-07-27 11:51 | W.PN.HOSP.TC ---
Addendum entered and electronically signed by Michelle Cohen MD 07/27/24 13:33:
Dr Umer Stroud reached back and stated that he does not think he can do the surgery until next Friday 08/04
Addendum entered and electronically signed by Michelle Cohen MD 07/27/24 13:24:
discussed extensively with daughter on the phone.
She informed me that she supports her father's decision.
Pt has stated to me earlier that he would like to proceed with surgery (parathyroidectomy) to treat his hypercalcemia (parathyroid adenoma).
Reached out to Dr Stroud on TT about pt's (and family's) wish.
Surgery plan TBD
Original Note:
Today's Communication/Plan
-
see A/P
Assessment / Plan
Assessment / Plan
# New GIB 07/27/2024
Monitor Hgb
Started Protonix IV BID, GI CS
# Left mainstem bronchus obstruction, recurrent aspiration -patient have increased secretion and potential for recurrent bronchus obstruction and related complication-- pulmonary toileting--aspiration risk
# Leukocytosis/Hypothermia
WBC again mildly elevated, temperature normalized
pt was noted to have been vomiting tube feeds 07/16--no fevers, no cough--likely aspiration pneumonitis--discontinued further antibiotics, patient has finished a 5-day course.
# Recurrent pleural effusion
patient underwent right-sided thoracentesis of 1.1 L. And left-sided thoracentesis of 1450ml, 1750 ml, 750ml, 1600ml. A Pleurx catheter was planned although insurance approval did not come through. will likely need weekly thoracentesis set up.
Repeat chest x-ray on Saturday showing lung whiteout. Discussed with pulmonology for concern of repeat reaccumulation of pleural effusion.
IRAD did a bedside thoracentesis of 1.1 L pleural fluid. Patient post-thoracentesis x-ray 07/26 showed appropriate expansion of left lung.
# Acute hypoxic respiratory failure, ventilator dependent respiratory failure, s/p PEA/cardiac arrest
patient had episode of mucous plugging with respiratory arrest. Patient was bradycardic at that time and likely added to the problem. Patient require ventilator support and was able to be extubated--back on O2-- Dyspnea has improved with multiple
thoracentesis. Remains at high risk of decompensation and further respiratory problems.
# Hypercalcemia/parathyroid adenoma/secondary hyperparathyroidism
patient has significant hypercalcemia and likely secondary to ESRD/secondary hyperparathyroidism and parathyroid adenoma found on imaging.
Parathyroid hormone close to 1000. Patient has been maximized on Cinacalcet and also has been provided calcitonin/bisphosphonates.
In light of refractory nature of hypercalcemia, surgery has been consulted, patient is a candidate for minimally invasive parathyroidectomy once pulmonary status stabilizes
Surgery plan TBD
# NSTEMI
patient was managed conservatively and has finished few days of heparin drip therapy. Echocardiogram showing ejection fraction of 50 to 55%.
# Diastolic heart failure exacerbation
patient volume status being managed by hemodialysis, patient makes some urine.
# Hx CVA w L hemiparesis, dysarthria, dysphagia
cont tube feeding
# ESRD on MWF HD--apprec renal
# anemia of chronic disease- transfused 2 unit pRBCs
# Severe calcific atherosclerotic plaque in the coronary arteries on CT Chest
# Right chronically impacted humeral neck fracture -imaging finding on CT chest, needs to be verified with previous records
# protein calorie malnutrition--cachectic, stage 2 pressure wound--on tube feeds--feel at least moderate if not severe
# sacrum stage 2 pressure injury--cont local wound care---unclear to me if POA
# Essential Hypertension
# Hyperlipidemia
# Carotid artery disease s/p R CEA
# BPH
# Depression
code status--DNI--wants chest compressions
d/w renal. Highly recc surgery to control hypercalcemia.
total time 51 min
Anticipated Discharge: > 48 hours
Subjective/Interval History
-
Date of Service: July 27, 2024
Objective Data
-
Labs:
Laboratory Results
07/27/24 07/27/24 07/27/24
08:32 14:30 20:30
WBC 13.5 H
Hgb 9.2 L Pending Pending
Hct 28.8 L Pending Pending
Plt Count 320
Sodium 135
Potassium 4.7
Chloride 96 L
Carbon Dioxide 25
BUN 101 H*
Creatinine 4.8 H*
Glucose 101 H
Calcium 12.0 H
Vital Signs:
Vital Signs
Temp Pulse Resp BP Pulse Ox
36.4 C 71 18 131/78 100
07/26/24 23:57 07/26/24 23:57 07/26/24 23:57 07/26/24 23:57 07/27/24 05:18
I&O
07/26/24 07/27/24 07/28/24
06:59 06:59 06:59
Intake Total 1250 / 1250
Balance 1250 / 1250
--- NOTE | 2024-07-27 12:49 | W.PN.NEPH.HD ---
Assessment
-
pt seen during HD
vitals stable
UF as tolerates to EDW
pleural effusion not amenable for UF
calcium still high of this persists --may need to rethink of parathyroid surgery
sensipar dose increased to 90mg BID on 07/26
CVC functions well
Progress Note - Hemodialysis
-
Date of Service: July 27, 2024
Duration: 30 minutes and 3 hours
Potassium Bath: 2
Calcium Bath: 2
Opti-Dialyzer: 160
Ultrafiltration: Other (1.5-2kg)
Blood Flow: 400
Dialysate Flow: 600
Heparin: no
EPO: 4000
[2024-07-27 14:25] LABS: Hematocrit 29.3 % (39.0-52.0); Hemoglobin 9.5 g/dL (13.0-18.0)
--- NOTE | 2024-07-27 14:37 | CM ---
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
per Renetta in admissions at [facility] they have no short term beds this week and if patient needs intermodal truck driver HD bed they have no skilled nursing beds.
Plan; To reach out to patient's daughter for other skilled options for patient.
[2024-07-27 15:20] VITALS: BP 155/92; PULSE 77; O2SAT 94
[2024-07-27 16:25] VITALS: BP 137/76
[2024-07-27] MEDS: CRESTOR 20 MG TUBE (17:52)
[2024-07-27] MEDS: FOLVITE 2 MG TUBE (22:01)
[2024-07-27] MEDS: MELATONIN 5 MG TUBE (22:01)
[2024-07-27] MEDS: NSS (PRESERVATIVE FREE) 10 ML IV (22:02)
[2024-07-27 23:44] VITALS: BP 133/77
[2024-07-28 07:08] VITALS: BP 140/69
--- NOTE | 2024-07-28 08:04 | W.PN.HOSP.TC ---
Addendum entered and electronically signed by Isabella Marques MD 07/28/24 16:42:
I saw and evaluated the patient independently. I reviewed the resident�s note and agree with findings and plan as documented by Dr. Faria.
GENERAL: chronically ill appearing male cachectic
HEENT: NC/AT--O2 back on
HEART: regular rate and rhythm, +S1, +S2, tachy
LUNGS : clear to auscultation bilaterally--decreased BS left base
ABDOM: soft, nontender, nondistended, + bowel sounds
EXT: no cyanosis, clubbing, or edema
NEUROLOGIC: nonfocal
Left mainstem bronchus obstruction, recurrent aspiration -patient have increased secretion and potential for recurrent bronchus obstruction and related complication-- pulmonary toileting--aspiration risk
Leukocytosis/hypothermia--WBC increased to 16K but pt was noted to have been vomiting tube feeds 07/16--no fevers, no cough--likely aspiration pneumonitis--WBC returned to normal limits--finished 5 days of Unasyn
New onset GI bleed on 07/27--pt does not want workup, GI said would be high risk--follow HGB--cont PPI--apprec GI
Recurrent pleural effusion--patient underwent right-sided thoracentesis of 1.1 L--And left-sided thoracentesis of 1450ml, 1750 ml, 750ml, 1600ml, 1150ml-- A Pleurx catheter was planned although insurance approval did not come through-- will need
weekly thoracentesis set up
Acute hypoxic respiratory failure, ventilator dependent respiratory failure, s/p PEA/cardiac arrest -patient had episode of mucous plugging with respiratory arrest. Patient was bradycardic at that time and likely added to the problem. Patient
require ventilator support and was able to be extubated--back on O2-- Dyspnea has improved with x4 with thoracentesis. Remains at high risk of decompensation and further respiratory problems.
Hypercalcemia/parathyroid adenoma/secondary hyperparathyroidism -patient has significant hypercalcemia and likely secondary to ESRD/secondary hyperparathyroidism and parathyroid adenoma found on imaging. Parathyroid hormone close to 1000. Patient
has been maximized on Cinacalcet and also has been provided calcitonin/bisphosphonates. In light of refractory nature of hypercalcemia surgery has been consulted, patient is a candidate for minimally invasive parathyroidectomy once pulmonary status
stabilizes-- surgery for parathyroid was postponed--pt and family now agreeable--Dr. Stroud re-notified--next scheduled surgery would be 08/04/24
NSTEMI -patient was managed conservatively and has finished few days of heparin drip therapy. Echocardiogram showing ejection fraction of 50 to 55%.
Diastolic heart failure exacerbation -patient volume status being managed by hemodialysis, patient makes some urine--recurrent pleural effusions not controlled with HD
Hx CVA w L hemiparesis, dysarthria, dysphagia-- cont tube feeding
ESRD on MWF HD--apprec renal
anemia of chronic disease- transfused 2 unit pRBCs
Severe calcific atherosclerotic plaque in the coronary arteries on CT Chest
Right chronically impacted humeral neck fracture -imaging finding on CT chest, needs to be verified with previous records
protein calorie malnutrition--cachectic, stage 2 pressure wound--on tube feeds--feel at least moderate if not severe
sacrum stage 2 pressure injury--cont local wound care---unclear to me if POA
Hyponatremia
Essential Hypertension
Hyperlipidemia
Carotid artery disease s/p R CEA
BPH
Depression
code status--DNI--wants chest compressions--patient very frustrated with the fact that his fluid has reaccumulated and needs another tap--seems frustrated by the entire medical condition--started conversation about Pleurx catheter, weekly
thoracentesis, 3 times per week dialysis, tube feedings, severe debilitation and needing rehab, upcoming surgery for parathyroidectomy and explained to patient that if he feels he cannot go on any further or does not want to keep moving forward that
hospice is a viable option. Also explained that there would be no need to make that decision immediately but that he should think about it and talk with his family. Only he can decide what he is willing to put up with and for how long regarding
his debilitation.
Had approximately 45-minute conversation by phone on July 20, 2024 with patient's daughter and patient's ex---explained conversation that I started with the patient Wednesday 07/19 regarding hospice and what he is willing to put up with, medical
conditions currently, upcoming surgery, general debilitation and the fact that he has been hospitalized here for approximately 1 month. They explained that he was at [facility] from February to April of this year, then went to rehab, and
now here. Explained that in my medical opinion, I do not believe that he will be here next year at this time and that he is hospice appropriate. They then questioned the utility of the parathyroid surgery scheduled for tomorrow. At this time, we
will postpone surgery and have notified Dr. Stroud. They are in full agreement with having a rai conversation with the patient but do not wish to do so until July 30 when they are available to be here bedside and speak in person. I did ask if they
were able to come in sooner than July 30 to which the reply was no.
Came to see patient on rounds on 07/21 and he was on the phone with his daughter Tawnya. I started the conversation with the patient that I had with Tawnya and her mom on Thursday 07/20. I explained that I do not think that the patient will be here next
year at this time. I also told him that I do not think that he is rehab-able and that he will likely not get home and he will be in a usp long-term. Told the patient that I think meeting with hospice and having a rai discussion will be
another piece of the POLST for him to make an informed decision about what he wants moving forward. I did explain that hospice is comfort focused. Patient was going to think about it and continue discussions with his family. They are still
anticipating coming in July 30 to have a discussion about options he may have.
07/22 asked patient again regarding what he thought about hospice, goals of care that we do spoke about. He stated that his daughter and are coming tomorrow , July 23, 2024. He told me that he feels by choosing hospice that that is
being 'selfish'. 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 He asked to speak to a heel nailing machine operator. We did contact edging machine operator's office at his request.
pt and family have now decided against hospice and that he wants to continue moving forward
disposition planning--not LTAC candidate, not acute rehab candidate--no Asept cath per insurance--SNF....
Original Note:
Today's Communication/Plan
-
- HD tw
Assessment / Plan
Assessment / Plan
New onset GI bleed
- 07/27 start
- monitor Hb
- protonix IV BID
- appreciate GI input
L mainstem bronchus obstruction secondary to secretions
B/l pleural effusions likely secondary to underlying CHF and ESRD
- aspiration risk
- hx CVA/peg tube on tube feeding
- CPT
- resp cx: Pseudomonas, completed 7 days abx
- cont flutter valve
- L thoracentesis 06/21 #1: 1450 cc straw-colored pleural fluid
- R thoracentesis 06/22 #1: 1100 cc of clear yellow pleural fluid.
- L thoracentesis 06/29 #2: 1750 cc of serosanguineous pleural fluid.
- L thoracentesis 07/08 #3: 750 cc of clear yellow pleural fluid.
- L thoracentesis 07/19 #4: 1600 cc of straw colored pleural fluid
- L thoracentesis 07/26 #5: 1150 cc yellow pleural fluid evacuated
- appreciate pulm input
NSTEMI
CHF
- trop max 10.7
- was on a heparin drip
- Echo: LVEF 50-55%
- ASA, statin
- hold BB due to recent severe bradycardia
Acute on chronic HFpEF
- proBNP elevated
- echo: LVEF 50-55%
- volume overload managed by HD
Hypercalcemia secondary to parathyroid adenoma and hyperparathyroidism secondary to renal dysfunction
- vit D deficiency
- on cinacalcit
- CT CAP: enlarged parathyroid
- thyroid us: parathyroid adenoma
- pamidronate x1
- surgery consulted - agreeable to perform when medically stable - possibly 08/04
Hx CVA w L hemiparesis, dysarthria, dysphagia
- cont tube feeding
- PT/OT
- PMR consult
ESRD on MWF HD
anemia of chronic disease
- HD due 07/08
- transfused 2 unit pRBCs
Severe calcific atherosclerotic plaque in the coronary arteries on CT Chest
Right chronically impacted humeral neck fracture -imaging finding on CT chest, needs to be verified with previous records
Hyponatremia
Recent Flu
Benign Hypertension
Hyperlipidemia
Carotid artery disease s/p R CEA
BPH
Depression
Diet: tube feeding
DVT Prophylaxis: Heparin SUBQ
Code Status: limited - DNI only
Anticipated Discharge: > 48 hours
Subjective/Interval History
-
Date of Service: July 28, 2024
No acute overnight events
Objective Data
-
Labs:
Laboratory Results
07/28/24
08:00
WBC Pending
Hgb Pending
Hct Pending
Plt Count Pending
Sodium Pending
Potassium Pending
Chloride Pending
Carbon Dioxide Pending
BUN Pending
Creatinine Pending
Glucose Pending
Calcium Pending
Vital Signs:
Vital Signs
Temp Pulse Resp BP Pulse Ox
97.4 F 73 18 133/77 96
07/27/24 23:44 07/27/24 23:44 07/27/24 23:44 07/27/24 23:44 07/28/24 06:10
I&O
07/27/24 07/28/24 07/29/24
06:59 06:59 06:59
Intake Total 1250 / 1250 650 / 650
Output Total 0 / 0
Balance 1250 / 1250 650 / 650
Review of Systems
-
History Source: Patient
Constitutional: Reports No Symptoms
Respiratory: Reports No Symptoms
Cardiac: Reports No Symptoms
Abdomen/GI: Reports No Symptoms
Musculoskeletal: Reports No Symptoms
Neuro: Reports No Symptoms
Physical Exam
-
General: Appears Chronically Ill and Cachectic
HEENT: Normocephalic and Atraumatic
Respiratory: Clear to Auscultation and Accessory Resp Muscle Use
Cardiac: Regular Rhythm and S1/S2
GI: Soft, Nontender, Nondistended, Normal Bowel Sounds and Peg Tube
Musculoskeletal: No Clubbing, No Cyanosis and No Edema
Skin: Warm and Dry
Neuro: Awake, Alert and Oriented
Psych: Calm
[2024-07-28] MEDS: SENSIPAR 90 MG TUBE ×2 (08:19→21:10)
[2024-07-28] MEDS: WELLBUTRIN REGULAR RELEASE 150 MG TUBE ×2 (08:19→21:09)
[2024-07-28] MEDS: PROTONIX IV 40 MG IV ×2 (08:19→21:10)
[2024-07-28] MEDS: ROBITUSSIN 200 MG TUBE ×4 (08:19→21:09)
[2024-07-28] MEDS: VISBIOME 1 CAP TUBE (08:19)
[2024-07-28] MEDS: LOW STRENGTH ASPIRIN 81 MG TUBE (08:19)
[2024-07-28] MEDS: NSS (PRESERVATIVE FREE) 10 ML IV ×2 (08:19→21:11)
[2024-07-28] MEDS: BACTROBAN 2% OINTMENT 1 APPLIC TOPICAL ×2 (08:20→21:09)
[2024-07-28] MEDS: HEPARIN 5000 UNITS SC (08:20)
[2024-07-28 08:22] LABS: Hematocrit 30.2 % (39.0-52.0); Hemoglobin 9.6 g/dL (13.0-18.0); Mean Corp Hgb Conc. 31.8 g/dL (33.0-37.0); Mean Corpuscular Hgb 29.6 pg (27.0-31.0); Mean Corpuscular Volume 93.2 fL (80.0-94.0); Mean Platelet Volume 8.7 fL (7.4-10.4); Platelet Count 291 10^3/uL (130-400); Red Blood Cell Count 3.24 10^6/uL (4.70-6.10); Red Cell Dist. Width 16.5 % (11.5-14.5); White Blood Cell Count 9.9 10^3/uL (4.8-10.8)
[2024-07-28 09:25] LABS: Blood Urea Nitrogen 55 mg/dl (9-20); Calcium 12.1 mg/dl (8.4-10.2); Carbon Dioxide 24 mmol/L (22-30); Estimated Creatinine Clearance 19 ml/min; Glucose 88 mg/dl (70-99); Magnesium 2.6 mg/dl (1.6-2.3); eGFR 21.09
--- NOTE | 2024-07-28 11:28 | W.PN.NEPH.PH ---
Today's Communication / Plan
-
HD tomorrowHD tomorrow
Assessment/Plan
-
Impression:
ESRD MWF
Hypoxia/left lung atelectasis versus pneumonia
Large left pleural effusion s/p thoracentesis 06/21
CHF
Anemia
Hypertension hx
Hyponatremia
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
Hyperphosphatemia
PEG
Non-ST elevation RI
History of stroke with subsequent left hemiparesis dysarthria and dysphagia
Tunneled right HD IJ catheter
Chronic impacted right proximal humerus fracture
hypercalcemia
Plan:
continue very high dosing of sensipar which fails to control the calcium. Needs PTX, plan for 08/04
will likely need thoracentesis prior to surgery
cause of effusion uncertain. despite adequate dialysis, it rapidly reaccumulates. It has now also become exudative by BOTH protein and LDH ratio criteria.
His ability to transport to dialysis from [place] as an OP is determined by the ability of staff to get him from bed to stretcher to HD chair and back, and his ability to tolerate the drive/distance to the HD unit. Little exertional effort should be
required on his part for this process.
If he cannot tolerate transportation to and from dialysis (and would therefore require HD on site), he will not tolerate transportation to and from thoracentesis (which is not available on site anywhere) and will be transported to ER each time
(~weekly) for thoracentesis.
HD tomorrow
high risk situation
-
-
Date of Service: July 28, 2024
CC / HPI / ROS
-
Chief Complaint:
ESRD
History of Present Illness:
hemodynamically stable
Hemodialysis on Saturday schedule
tolerated HD yesterday
calcium high >12 despite high dosing of sensipar
requiring weekly thoracentesis
Review of Systems:
No chest pain
No fever
mild sob still, on supplemental O2
Labs
-
Labs:
WBC 9.9 10^3/uL (4.8-10.8) 07/28/24 08:00
RBC 3.24 10^6/uL (4.70-6.10) L 07/28/24 08:00
Hgb 9.6 g/dL (13.0-18.0) L 07/28/24 08:00
Hct 30.2 % (39.0-52.0) L 07/28/24 08:00
Plt Count 291 10^3/uL (130-400) 07/28/24 08:00
Carbon Dioxide 24 mmol/L (22-30) 07/28/24 08:00
BUN 55 mg/dl (9-20) H 07/28/24 08:00
Creatinine 3.1 mg/dL (0.7-1.3) H 07/28/24 08:00
eGFR 21.09 07/28/24 08:00
Glucose 88 mg/dl (70-99) 07/28/24 08:00
Calcium 12.1 mg/dl (8.4-10.2) H 07/28/24 08:00
Phosphorus 2.5 mg/dl (2.5-4.5) 06/22/24 12:03
Chr-V-Zhvkicejazw Pept > 40144 pg/ml 06/20/24 18:13
Albumin 2.3 g/dl (3.5-5.0) L 06/25/24 04:13
Physical Exam
-
Vital Signs:
Vital Signs
Temp Pulse Resp BP Pulse Ox
97.6 F 74 16 140/69 94
07/28/24 07:08 07/28/24 07:08 07/28/24 07:08 07/28/24 07:08 07/28/24 08:00
Cardiovascular:: Regular rate and rhythm
Respiratory:: Bilateral: Coarse
Lung Excursion:: Normal
Abdomen:: Nontender and Soft
Bowel Sounds:: Normal
Extremity Edema:: None: Bilateral:
[2024-07-28 11:32] LABS: Chloride 98 mmol/L (98-107); Sodium 137 mmol/L (135-145)
[2024-07-28 15:35] VITALS: BP 147/78
--- NOTE | 2024-07-28 15:54 | CM ---
Patient seen at bedside with physicians on . Patient pending surgery now planned for next week. CM will call to patient daughter and ask for additional referral options. Physician recommendation that patient may be able to tolerate van ride to
HD if able to find location for HD. CM will discuss with patient daughter. CM will continue to follow for discharge planning needs.
Plan; SNF
[2024-07-28] MEDS: CRESTOR 20 MG TUBE (18:02)
[2024-07-28] MEDS: COZAAR 25 MG TUBE (18:02)
[2024-07-28] MEDS: MELATONIN 5 MG TUBE (21:10)
[2024-07-28] MEDS: FOLVITE 2 MG TUBE (21:10)
[2024-07-28] MEDS: HEPARIN SC (21:11)
[2024-07-28] MEDS: ROXICODONE 5 MG TUBE (21:15)
[2024-07-28 23:14] VITALS: BP 148/86
[2024-07-29] MEDS: ZOFRAN 4 MG IV (04:55)
--- NOTE | 2024-07-29 06:51 | W.PN.UPDATE ---
Update Note
Progress Note Update
RN reported patient is having difficulty suctioning and is with increased secretions. Patient seen and evaluated, noted to be resting in bed, Patient reports feeling some difficultly breathing today, felt better yesterday, Denies any chest pain.
Lungs coarse Right bases, Left diminished. RR 22 92% RA 152/79 97.8 HR 69. Advised chest Xray which patient refused, Advised RN to change suction tubings 1L NC O2 applied. RR 18, 95% at present.
--- NOTE | 2024-07-29 07:00 | PTCARENOTE ---
Patient reported coughing more with more mucous secretions than the night prior. Also having difficulty suctioning oral secretions. His oxygen leveled off around 95-96% on RA, but did dip down to 89 at one point. T 97.8 axillary, RR 18, BP 152/79 HR
69. Patient was interested in a PRN medication to help with symptoms. R upper (anterior) is coarse with wheezing, L upper (anterior) is very diminished. Posterior- is diminished more on the R with mild wheezing.
Notified PEDIATRICIAN/MEDICAL DOCTOR and she came to see patient. Placed patient on 1 L of Oxygen, (pulse ox 95%) Suctioned tubing with water and changed yankower per PEDIATRICIAN/MEDICAL DOCTOR recommendation. Patient is able to suction much better now and reported feeling better on the oxygen.
[2024-07-29 07:27] VITALS: BP 152/83
--- NOTE | 2024-07-29 07:49 | W.PN.HOSP.TC ---
Addendum entered and electronically signed by Isabella Marques MD 07/29/24 17:22:
I saw and evaluated the patient independently. I reviewed the resident�s note and agree with findings and plan as documented by Dr. Faria.
GENERAL: chronically ill appearing male cachectic
HEENT: NC/AT--O2 back on
HEART: regular rate and rhythm, +S1, +S2, tachy
LUNGS : clear to auscultation bilaterally--decreased BS left base
ABDOM: soft, nontender, nondistended, + bowel sounds
EXT: no cyanosis, clubbing, or edema
NEUROLOGIC: nonfocal
Left mainstem bronchus obstruction, recurrent aspiration -patient have increased secretion and potential for recurrent bronchus obstruction and related complication-- pulmonary toileting--aspiration risk
Leukocytosis/hypothermia--WBC increased to 16K but pt was noted to have been vomiting tube feeds 07/16--no fevers, no cough--likely aspiration pneumonitis--WBC returned to normal limits--finished 5 days of Unasyn
New onset GI bleed on 07/27--pt does not want workup, GI said would be high risk--follow HGB--cont PPI--apprec GI
Recurrent pleural effusion--patient underwent right-sided thoracentesis of 1.1 L--And left-sided thoracentesis of 1450ml, 1750 ml, 750ml, 1600ml, 1150ml-- A Pleurx catheter was planned although insurance approval did not come through-- will need
weekly thoracentesis set up
Acute hypoxic respiratory failure, ventilator dependent respiratory failure, s/p PEA/cardiac arrest -patient had episode of mucous plugging with respiratory arrest. Patient was bradycardic at that time and likely added to the problem. Patient
require ventilator support and was able to be extubated--back on O2-- Dyspnea has improved with x4 with thoracentesis. Remains at high risk of decompensation and further respiratory problems-pt c/o of SOB overnight into 07/29--refused CXR--received
HD, agreeable to CXR after HD
Hypercalcemia/parathyroid adenoma/secondary hyperparathyroidism -patient has significant hypercalcemia and likely secondary to ESRD/secondary hyperparathyroidism and parathyroid adenoma found on imaging. Parathyroid hormone close to 1000. Patient
has been maximized on Cinacalcet and also has been provided calcitonin/bisphosphonates. In light of refractory nature of hypercalcemia surgery has been consulted, patient is a candidate for minimally invasive parathyroidectomy once pulmonary status
stabilizes-- surgery for parathyroid was postponed--pt and family now agreeable--Dr. Stroud re-notified--next scheduled surgery would be 08/04/24
NSTEMI -patient was managed conservatively and has finished few days of heparin drip therapy. Echocardiogram showing ejection fraction of 50 to 55%.
Diastolic heart failure exacerbation -patient volume status being managed by hemodialysis, patient makes some urine--recurrent pleural effusions not controlled with HD
Hx CVA w L hemiparesis, dysarthria, dysphagia-- cont tube feeding
ESRD on MWF HD--apprec renal
anemia of chronic disease- transfused 2 unit pRBCs
Severe calcific atherosclerotic plaque in the coronary arteries on CT Chest
Right chronically impacted humeral neck fracture -imaging finding on CT chest, needs to be verified with previous records
protein calorie malnutrition--cachectic, stage 2 pressure wound--on tube feeds--feel at least moderate if not severe
sacrum stage 2 pressure injury--cont local wound care---unclear to me if POA
Hyponatremia
Essential Hypertension
Hyperlipidemia
Carotid artery disease s/p R CEA
BPH
Depression
code status--DNI--wants chest compressions--patient very frustrated with the fact that his fluid has reaccumulated and needs another tap--seems frustrated by the entire medical condition--started conversation about Pleurx catheter, weekly
thoracentesis, 3 times per week dialysis, tube feedings, severe debilitation and needing rehab, upcoming surgery for parathyroidectomy and explained to patient that if he feels he cannot go on any further or does not want to keep moving forward that
hospice is a viable option. Also explained that there would be no need to make that decision immediately but that he should think about it and talk with his family. Only he can decide what he is willing to put up with and for how long regarding
his debilitation.
Had approximately 45-minute conversation by phone on July 20, 2024 with patient's daughter and patient's ex---explained conversation that I started with the patient Wednesday 07/19 regarding hospice and what he is willing to put up with, medical
conditions currently, upcoming surgery, general debilitation and the fact that he has been hospitalized here for approximately 1 month. They explained that he was at [facility] from February to April of this year, then went to rehab, and
now here. Explained that in my medical opinion, I do not believe that he will be here next year at this time and that he is hospice appropriate. They then questioned the utility of the parathyroid surgery scheduled for tomorrow. At this time, we
will postpone surgery and have notified Dr. Stroud. They are in full agreement with having a rai conversation with the patient but do not wish to do so until July 30 when they are available to be here bedside and speak in person. I did ask if they
were able to come in sooner than July 30 to which the reply was no.
Came to see patient on rounds on 07/21 and he was on the phone with his daughter Tawnya. I started the conversation with the patient that I had with Tawnya and her mom on Thursday 07/20. I explained that I do not think that the patient will be here next
year at this time. I also told him that I do not think that he is rehab-able and that he will likely not get home and he will be in a correction long-term. Told the patient that I think meeting with hospice and having a rai discussion will be
another piece of the puzzle for him to make an informed decision about what he wants moving forward. I did explain that hospice is comfort focused. Patient was going to think about it and continue discussions with his family. They are still
anticipating coming in July 30 2 to have a discussion about options he may have.
07/22 asked patient again regarding what he thought about hospice, goals of care that we do spoke about. He stated that his daughter and are coming tomorrow , July 23, 2024. He told me that he feels by choosing hospice that that is
being 'selfish'. 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 He asked to speak to a lawnmower repair mechanic. We did contact paper goods machine set up operator's office at his request.
pt and family have now decided against hospice and that he wants to continue moving forward
disposition planning--not LTAC candidate, not acute rehab candidate--no Asept cath per insurance--SNF.... Case management reported that patient daughter does not want him to leave the hospital without having his surgery even if he is medically
stable to do so, they also have not provided case management the outpatient dialysis center that he was at prior to his being hospitalized at [facility]
I reviewed patient's PT and OT notes and he cannot even sit on the side of the bed--I do not believe that he is rehab able--I believe that he will be a long-term correction resident, unfortunately
Original Note:
Today's Communication/Plan
-
- HD today
- CXR
- possible dc discussion w family tw
Assessment / Plan
Assessment / Plan
New onset GI bleed
- 6/ start
- monitor Hb
- protonix IV BID
- appreciate GI input
L mainstem bronchus obstruction secondary to secretions
B/l pleural effusions likely secondary to underlying CHF and ESRD
SOB
- aspiration risk
- hx CVA/peg tube on tube feeding
- CPT
- resp cx: Pseudomonas, completed 7 days abx
- cont flutter valve
- L thoracentesis 06/21 #1: 1450 cc straw-colored pleural fluid
- R thoracentesis 06/22 #1: 1100 cc of clear yellow pleural fluid.
- L thoracentesis 06/29 #2: 1750 cc of serosanguineous pleural fluid.
- L thoracentesis 07/08 #3: 750 cc of clear yellow pleural fluid.
- L thoracentesis 07/19 #4: 1600 cc of straw colored pleural fluid
- L thoracentesis 07/26 #5: 1150 cc yellow pleural fluid evacuated
- dyspneic -- CXR
- appreciate pulm input
NSTEMI
CHF
- trop max 10.7
- was on a heparin drip
- Echo: LVEF 50-55%
- ASA, statin
- hold BB due to recent severe bradycardia
Acute on chronic HFpEF
- proBNP elevated
- echo: LVEF 50-55%
- volume overload managed by HD
Hypercalcemia secondary to parathyroid adenoma and hyperparathyroidism secondary to renal dysfunction
- vit D deficiency
- on cinacalcit
- CT CAP: enlarged parathyroid
- thyroid us: parathyroid adenoma
- pamidronate x1
- surgery consulted - agreeable to perform when medically stable - possibly 08/04
Hx CVA w L hemiparesis, dysarthria, dysphagia
- cont tube feeding
- PT/OT
- PMR consult
ESRD on MWF HD
anemia of chronic disease
- HD due 07/08
- transfused 2 unit pRBCs
Severe calcific atherosclerotic plaque in the coronary arteries on CT Chest
Right chronically impacted humeral neck fracture -imaging finding on CT chest, needs to be verified with previous records
Hyponatremia
Recent Flu
Benign Hypertension
Hyperlipidemia
Carotid artery disease s/p R CEA
BPH
Depression
Diet: tube feeding
DVT Prophylaxis: Heparin SUBQ
Code Status: limited - DNI only
Anticipated Discharge: > 48 hours
Subjective/Interval History
-
Date of Service: July 29, 2024
HD today. Overnight, pt w increased secretions and difficulty suctioning. Refused CXR, so suction tubing was changed. Placed on 1L O2 via NC.
Objective Data
-
Labs:
Laboratory Results
07/29/24
07:00
WBC Pending
Hgb Pending
Hct Pending
Plt Count Pending
Sodium Pending
Potassium Pending
Chloride Pending
Carbon Dioxide Pending
Vital Signs:
Vital Signs
Temp Pulse Resp BP Pulse Ox
97.2 F 70 22 148/86 95
07/28/24 23:14 07/28/24 23:14 07/28/24 23:14 07/28/24 23:14 07/29/24 06:30
I&O
07/28/24 07/29/24 07/30/24
06:59 06:59 06:59
Intake Total 650 / 650
Output Total 0 / 0
Balance 650 / 650
Review of Systems
-
History Source: Patient
Constitutional: Reports No Symptoms
Respiratory: Reports Trouble Breathing
Cardiac: Reports No Symptoms
Abdomen/GI: Reports No Symptoms
Neuro: Reports No Symptoms
Physical Exam
-
General: Appears Chronically Ill and Cachectic
HEENT: Normocephalic, Atraumatic and Oxygen
Respiratory: Accessory Resp Muscle Use and Decreased Breath Sounds
Cardiac: Regular Rhythm and S1/S2
GI: Soft, Nontender, Nondistended and Normal Bowel Sounds
Musculoskeletal: No Clubbing, No Cyanosis and No Edema
Skin: Warm, Dry and IV Access / Catheter Site
Neuro: Awake, Alert and Oriented
Psych: Calm
[2024-07-29 08:15] LABS: Mean Corp Hgb Conc. 32.1 g/dL (33.0-37.0); Mean Corpuscular Hgb 29.5 pg (27.0-31.0); Mean Corpuscular Volume 91.8 fL (80.0-94.0); Mean Platelet Volume 8.9 fL (7.4-10.4); Platelet Count 303 10^3/uL (130-400); Red Blood Cell Count 3.05 10^6/uL (4.70-6.10); Red Cell Dist. Width 16.3 % (11.5-14.5); White Blood Cell Count 17.4 10^3/uL (4.8-10.8)
[2024-07-29 08:55] LABS: Carbon Dioxide 25 mmol/L (22-30); Chloride 98 mmol/L (98-107); Potassium 3.9 mmol/L (3.5-5.1); Sodium 136 mmol/L (135-145)
[2024-07-29] MEDS: RETACRIT 10000 UNITS IV (09:10)
--- NOTE | 2024-07-29 09:28 | W.PN.NEPH.HD ---
Assessment
-
Seen on dialysis tolerating treatment
Progress Note - Hemodialysis
-
Date of Service: July 29, 2024
Duration: 30 minutes and 3 hours
Potassium Bath: 2
Calcium Bath: 2
Opti-Dialyzer: 160
Ultrafiltration: Other (1.5-2kg)
Blood Flow: 400
Dialysate Flow: 600
Heparin: no
EPO: 4000
[2024-07-29] MEDS: LOW STRENGTH ASPIRIN 81 MG TUBE (09:43)
[2024-07-29] MEDS: VISBIOME 1 CAP TUBE (09:43)
[2024-07-29] MEDS: ROBITUSSIN 200 MG TUBE ×4 (09:43→22:04)
[2024-07-29] MEDS: HEPARIN 5000 UNITS SC ×2 (09:43→20:01)
[2024-07-29] MEDS: NSS (PRESERVATIVE FREE) 10 ML IV ×2 (09:44→20:01)
[2024-07-29] MEDS: PROTONIX IV 40 MG IV ×2 (09:44→20:01)
[2024-07-29] MEDS: BACTROBAN 2% OINTMENT 1 APPLIC TOPICAL (09:47)
[2024-07-29 11:00] VITALS: BMI 17.4
--- NOTE | 2024-07-29 11:19 | W.PN.SURGUPD ---
Surgical Update
Surgical Update
The patient is back on the OR schedule for 08/04. The procedure and the date of his surgery rediscussed with the patient. Will preop and consent.
[2024-07-29] MEDS: HEPARIN 3800 UNITS INTRACATH (11:34)
--- NOTE | 2024-07-29 12:00 | WOUNDNOTE ---
WO RN note: Patient incontinent of smear of loose brown bowel movement. Cynthia care given. Sacral/coccyx about the same, slow to harleen red with mild MASD. Skin on heels blanchable red and intact. Patient on a [employer] air mattress and he has an air
chair cushion. Patient turned to R semi side lying position with help from machine programmer Brittanie and [facility] RN student Suzanna. Heels off bed with air chair cushion.
--- NOTE | 2024-07-29 12:30 | WOUNDNOTE ---
WOC RN Note: Patient incontinent of large loose brown stool. Cynthia care given with help from WOC RN student Suzanna. Bactroban ointment followed by Calazime ointment applied to Penis tip ulcer then tucked non woven gauze under penis for protection.
Patient turned to L semi side lying position. Heels off bed with pillow and air chair cushion. Discussed with RODRIGO Fierro. Will follow as needed.
[2024-07-29] MEDS: WELLBUTRIN REGULAR RELEASE 150 MG TUBE ×2 (12:47→20:02)
[2024-07-29] MEDS: SENSIPAR 90 MG TUBE ×2 (12:47→20:02)
[2024-07-29 15:31] VITALS: BP 127/65; PULSE 76; O2SAT 96
[2024-07-29 15:48] VITALS: BP 128/71; BP 131/78; PULSE 68
[2024-07-29 15:53] VITALS: BP 127/65
--- NOTE | 2024-07-29 16:18 | CM ---
Patient and daughter called to CM and stated that they wanted patient to remain in hospital until after procedure regardless of weather or not bed was located. CM reviewed physician assessment that patient was medically appropriate for discharge if
placement was located. Daughter indicated prior HD center was [facility]. CM will send additional referrals and update [facility] about prior [facility] center. CM will continue to follow for discharge planning needs.
Plan; SNF
[2024-07-29 16:51] LABS: B.E. 7.4 mmol/L; HCO3 31.2 mmol/L (21-28); O2 Saturation % 98.6 % (94-98); PCO2 40 mmHg (35-48); PO2 83 mmHg (83-108)
[2024-07-29] MEDS: CRESTOR 20 MG TUBE (18:10)
[2024-07-29] MEDS: MELATONIN 5 MG TUBE (22:03)
[2024-07-29] MEDS: FOLVITE 2 MG TUBE (22:03)
[2024-07-29 23:45] VITALS: BP 140/72
[2024-07-30 06:00] VITALS: BMI 18.0
[2024-07-30 07:10] VITALS: BP 125/82
[2024-07-30 07:33] LABS: Hematocrit 29.5 % (39.0-52.0); Hemoglobin 9.5 g/dL (13.0-18.0); Mean Corp Hgb Conc. 32.2 g/dL (33.0-37.0); Mean Corpuscular Hgb 29.4 pg (27.0-31.0); Mean Corpuscular Volume 91.3 fL (80.0-94.0); Platelet Count 291 10^3/uL (130-400); Red Blood Cell Count 3.23 10^6/uL (4.70-6.10); Red Cell Dist. Width 16.6 % (11.5-14.5); White Blood Cell Count 15.1 10^3/uL (4.8-10.8)
[2024-07-30 08:28] LABS: Blood Urea Nitrogen 54 mg/dl (9-20); Calcium 12.1 mg/dl (8.4-10.2); Carbon Dioxide 26 mmol/L (22-30); Chloride 98 mmol/L (98-107); Estimated Creatinine Clearance 21 ml/min; Glucose 105 mg/dl (70-99); Potassium 4.2 mmol/L (3.5-5.1); Sodium 136 mmol/L (135-145); eGFR 23.83
[2024-07-30] MEDS: SENSIPAR 90 MG TUBE ×2 (09:19→20:27)
[2024-07-30] MEDS: WELLBUTRIN REGULAR RELEASE 150 MG TUBE ×2 (09:20→20:27)
[2024-07-30] MEDS: LOW STRENGTH ASPIRIN 81 MG TUBE (09:22)
[2024-07-30] MEDS: VISBIOME 1 CAP TUBE (09:23)
[2024-07-30] MEDS: HEPARIN 5000 UNITS SC (09:23)
[2024-07-30] MEDS: NSS (PRESERVATIVE FREE) 10 ML IV ×2 (09:23→20:26)
[2024-07-30] MEDS: PROTONIX IV 40 MG IV ×2 (09:24→20:26)
[2024-07-30] MEDS: ROBITUSSIN 200 MG TUBE ×4 (09:24→23:10)
--- NOTE | 2024-07-30 10:29 | W.PN.HOSP.TC ---
Addendum entered and electronically signed by Isabella Marques MD 07/30/24 18:33:
I saw and evaluated the patient independently. I reviewed the resident�s note and agree with findings and plan as documented by Dr. Faria.
GENERAL: chronically ill appearing male cachectic
HEENT: NC/AT--O2 back on
HEART: regular rate and rhythm, +S1, +S2, tachy
LUNGS : clear to auscultation bilaterally--decreased BS left base
ABDOM: soft, nontender, nondistended, + bowel sounds
EXT: no cyanosis, clubbing, or edema
NEUROLOGIC: nonfocal
Left mainstem bronchus obstruction, recurrent aspiration -patient have increased secretion and potential for recurrent bronchus obstruction and related complication-- pulmonary toileting--aspiration risk
Leukocytosis/hypothermia--likely aspiration pneumonitis--finished 5 days of Unasyn
New onset GI bleed on 07/27--pt does not want workup, GI said would be high risk--follow HGB--cont PPI--apprec GI--resolved
Recurrent pleural effusion--patient underwent right-sided thoracentesis of 1.1 L--And left-sided thoracentesis of 1450ml, 1750 ml, 750ml, 1600ml, 1150ml, 700ml-- A Pleurx catheter was planned although insurance approval did not come through-- will
need weekly thoracentesis set up, seems to recur in less than 1 week
Acute hypoxic respiratory failure, ventilator dependent respiratory failure, s/p PEA/cardiac arrest -patient had episode of mucous plugging with respiratory arrest. Patient was bradycardic at that time and likely added to the problem. Patient
require ventilator support and was able to be extubated--back on O2-- Dyspnea has improved with x4 with thoracentesis. Remains at high risk of decompensation and further respiratory problems--pt c/o of SOB overnight into 07/29--refused CXR, CXR done
07/29 after HD--fluid recurred--IR consulted again tap for 750ml
Hypercalcemia/parathyroid adenoma/secondary hyperparathyroidism -patient has significant hypercalcemia and likely secondary to ESRD/secondary hyperparathyroidism and parathyroid adenoma found on imaging. Parathyroid hormone close to 1000. Patient
has been maximized on Cinacalcet and also has been provided calcitonin/bisphosphonates. In light of refractory nature of hypercalcemia surgery has been consulted, patient is a candidate for minimally invasive parathyroidectomy once pulmonary status
stabilizes-- surgery for parathyroid was postponed--pt and family now agreeable--Dr. Stroud re-notified--next scheduled surgery would be 08/04/24
NSTEMI -patient was managed conservatively and has finished few days of heparin drip therapy. Echocardiogram showing ejection fraction of 50 to 55%.
Diastolic heart failure exacerbation -patient volume status being managed by hemodialysis, patient makes some urine--recurrent pleural effusions not controlled with HD
Hx CVA w L hemiparesis, dysarthria, dysphagia-- cont tube feeding
ESRD on MWF HD--apprec renal
anemia of chronic disease- transfused 2 unit pRBCs
Severe calcific atherosclerotic plaque in the coronary arteries on CT Chest
Right chronically impacted humeral neck fracture -imaging finding on CT chest, needs to be verified with previous records
protein calorie malnutrition--cachectic, stage 2 pressure wound--on tube feeds--feel at least moderate if not severe
sacrum stage 2 pressure injury--cont local wound care---unclear to me if POA
Hyponatremia
Essential Hypertension
Hyperlipidemia
Carotid artery disease s/p R CEA
BPH
Depression
code status--DNI--wants chest compressions--patient very frustrated with the fact that his fluid has reaccumulated and needs another tap--seems frustrated by the entire medical condition--started conversation about Pleurx catheter, weekly
thoracentesis, 3 times per week dialysis, tube feedings, severe debilitation and needing rehab, upcoming surgery for parathyroidectomy and explained to patient that if he feels he cannot go on any further or does not want to keep moving forward that
hospice is a viable option. Also explained that there would be no need to make that decision immediately but that he should think about it and talk with his family. Only he can decide what he is willing to put up with and for how long regarding
his debilitation.
Had approximately 45-minute conversation by phone on July 20, 2024 with patient's daughter and patient's ex---explained conversation that I started with the patient Wednesday 07/19 regarding hospice and what he is willing to put up with, medical
conditions currently, upcoming surgery, general debilitation and the fact that he has been hospitalized here for approximately 1 month. They explained that he was at [facility] from February to April of this year, then went to rehab, and
now here. Explained that in my medical opinion, I do not believe that he will be here next year at this time and that he is hospice appropriate. They then questioned the utility of the parathyroid surgery scheduled for tomorrow. At this time, we
will postpone surgery and have notified Dr. Stroud. They are in full agreement with having a rai conversation with the patient but do not wish to do so until July 30 when they are available to be here bedside and speak in person. I did ask if they
were able to come in sooner than July 30 to which the reply was no.
Came to see patient on rounds on 07/21 and he was on the phone with his daughter Tawnya. I started the conversation with the patient that I had with Tawnya and her mom on Thursday 07/20. I explained that I do not think that the patient will be here next
year at this time. I also told him that I do not think that he is rehab-able and that he will likely not get home and he will be in a half-way long-term. Told the patient that I think meeting with hospice and having a rai discussion will be
another piece of the puzzle for him to make an informed decision about what he wants moving forward. I did explain that hospice is comfort focused. Patient was going to think about it and continue discussions with his family. They are still
anticipating coming in July 30 to have a discussion about options he may have.
07/22 asked patient again regarding what he thought about hospice, goals of care that we do spoke about. He stated that his daughter and are coming tomorrow , July 23, 2024. He told me that he feels by choosing hospice that that is
being 'selfish'. 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 He asked to speak to a behavior support specialist. We did contact employment supervisor's office at his request.
pt and family have now decided against hospice and that he wants to continue moving forward
07/30 had meeting with daughter, and ex---showed them the chest x-ray of his recurrent pleural effusion--again, stated that I do not believe he will be here next year at this time, that he will be dependent upon half-way and that he will never
go home--daughter replied, 'we are going to do what ever he wishes'
disposition planning--not LTAC candidate, not acute rehab candidate--no Asept cath per insurance--SNF.... Case management reported that patient daughter does not want him to leave the hospital without having his surgery even if he is medically
stable to do so, they also have not provided case management the outpatient dialysis center that he was at prior to his being hospitalized at [facility]
I reviewed patient's PT and OT notes and he cannot even sit on the side of the bed--I do not believe that he is rehab able--I believe that he will be a long-term half-way resident, unfortunately
Original Note:
Today's Communication/Plan
-
- thoracentesis
- family at bedside
Assessment / Plan
Assessment / Plan
New onset GI bleed
- 07/27 start
- monitor Hb
- protonix IV BID
- appreciate GI input
L mainstem bronchus obstruction secondary to secretions
B/l pleural effusions likely secondary to underlying CHF and ESRD
SOB
- aspiration risk
- hx CVA/peg tube on tube feeding
- CPT
- resp cx: Pseudomonas, completed 7 days abx
- cont flutter valve
- L thoracentesis 06/21 #1: 1450 cc straw-colored pleural fluid
- R thoracentesis 06/22 #1: 1100 cc of clear yellow pleural fluid.
- L thoracentesis 06/29 #2: 1750 cc of serosanguineous pleural fluid.
- L thoracentesis 07/08 #3: 750 cc of clear yellow pleural fluid.
- L thoracentesis 07/19 #4: 1600 cc of straw colored pleural fluid
- L thoracentesis 07/26 #5: 1150 cc yellow pleural fluid evacuated
- dyspneic -- CXR -- mod pleural effusion -- thoracentesis
- appreciate pulm input
NSTEMI
CHF
- trop max 10.7
- was on a heparin drip
- Echo: LVEF 50-55%
- ASA, statin
- hold BB due to recent severe bradycardia
Acute on chronic HFpEF
- proBNP elevated
- echo: LVEF 50-55%
- volume overload managed by HD
Hypercalcemia secondary to parathyroid adenoma and hyperparathyroidism secondary to renal dysfunction
- vit D deficiency
- on cinacalcit
- CT CAP: enlarged parathyroid
- thyroid us: parathyroid adenoma
- pamidronate x1
- surgery consulted - agreeable to perform when medically stable - possibly 08/04
Hx CVA w L hemiparesis, dysarthria, dysphagia
- cont tube feeding
- PT/OT
- PMR consult
ESRD on MWF HD
anemia of chronic disease
- HD due 07/08
- transfused 2 unit pRBCs
Severe calcific atherosclerotic plaque in the coronary arteries on CT Chest
Right chronically impacted humeral neck fracture -imaging finding on CT chest, needs to be verified with previous records
Hyponatremia
Recent Flu
Benign Hypertension
Hyperlipidemia
Carotid artery disease s/p R CEA
BPH
Depression
Diet: tube feeding
DVT Prophylaxis: Heparin SUBQ
Code Status: limited - DNI only
Anticipated Discharge: > 48 hours
Subjective/Interval History
-
Date of Service: July 30, 2024
Moderate pleural effusion on CXR. Pt SOB. Pt's daughter and ex present at bedside. All family questions answered.
Objective Data
-
Labs:
Laboratory Results
07/30/24
07:09
WBC 15.1 H
Hgb 9.5 L
Hct 29.5 L
Plt Count 291
Sodium 136
Potassium 4.2
Chloride 98
Carbon Dioxide 26
BUN 54 H
Creatinine 2.8 H
Glucose 105 H
Calcium 12.1 H
Vital Signs:
Vital Signs
Temp Pulse Resp BP Pulse Ox
96.8 F L 74 18 125/82 99
07/30/24 07:10 07/30/24 07:10 07/30/24 07:10 07/30/24 07:10 07/30/24 07:10
Review of Systems
-
History Source: Patient
Constitutional: Reports No Symptoms
Respiratory: Reports Trouble Breathing
Cardiac: Reports No Symptoms
Abdomen/GI: Reports No Symptoms
Neuro: Reports No Symptoms
Physical Exam
-
General: Well Developed and Well Nourished
HEENT: Normocephalic, Atraumatic and Oxygen
Respiratory: Accessory Resp Muscle Use and Decreased Breath Sounds
Cardiac: Regular Rhythm and S1/S2
GI: Soft, Nontender, Nondistended, Normal Bowel Sounds and Ostomy
Musculoskeletal: No Clubbing, No Cyanosis and No Edema
Skin: Warm, Dry and IV Access / Catheter Site
Neuro: Awake, Alert and Oriented
Psych: Calm
[2024-07-30 11:21] LABS: LDH 132 U/L (120-246); Total Protein 7.1 g/dl (6.3-8.2)
[2024-07-30 11:52] VITALS: BP 154/93; BP_SYST 70
[2024-07-30 12:25] VITALS: BP 153/89
[2024-07-30 13:35] LABS: Body Fluid Mononuclear 62.7 %; Body Fluid Polymorphonuclear 37.3 %; Body Fluid WBC 1461 /CUMM
[2024-07-30 13:42] LABS: Body Fluid LDH 120 U/L; Body Fluid Protein 4.4 g/dl
[2024-07-30 13:44] LABS: Body Fluid Second Tech ASW
--- NOTE | 2024-07-30 14:07 | W.PN.NEPH.PH ---
Today's Communication / Plan
-
hd tomorrow
Assessment/Plan
-
Impression:
ESRD MWF
Hypoxia/left lung atelectasis versus pneumonia
Large left pleural effusion s/p thoracentesis 06/21
CHF
Anemia
Hypertension hx
Hyponatremia
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
Hyperphosphatemia
PEG
Non-ST elevation [place]
History of stroke with subsequent left hemiparesis dysarthria and dysphagia
Tunneled right HD IJ catheter
Chronic impacted right proximal humerus fracture
hypercalcemia
Plan:
continue very high dosing of sensipar which fails to control the calcium. Needs PTX, plan for 08/04
07/30 thoracentesis again
08/04 parathyroidectomy
HD tomorrow
high risk situation
-
-
Date of Service: July 30, 2024
CC / HPI / ROS
-
Chief Complaint:
ESRD
History of Present Illness:
hemodynamically stable
Hemodialysis on Saturday schedule
tolerated HD yesterday
calcium high >12 despite high dosing of sensipar
requiring weekly thoracentesis
Review of Systems:
No chest pain
No fever
mild sob still, on supplemental O2
Labs
-
Labs:
WBC 15.1 10^3/uL (4.8-10.8) H 07/30/24 07:09
RBC 3.23 10^6/uL (4.70-6.10) L 07/30/24 07:09
Hgb 9.5 g/dL (13.0-18.0) L 07/30/24 07:09
Hct 29.5 % (39.0-52.0) L 07/30/24 07:09
Plt Count 291 10^3/uL (130-400) 07/30/24 07:09
Sodium 136 mmol/L (135-145) 07/30/24 07:09
Potassium 4.2 mmol/L (3.5-5.1) 07/30/24 07:09
Chloride 98 mmol/L (98-107) 07/30/24 07:09
Carbon Dioxide 26 mmol/L (22-30) 07/30/24 07:09
BUN 54 mg/dl (9-20) H 07/30/24 07:09
Creatinine 2.8 mg/dL (0.7-1.3) H 07/30/24 07:09
eGFR 23.83 07/30/24 07:09
Glucose 105 mg/dl (70-99) H 07/30/24 07:09
Calcium 12.1 mg/dl (8.4-10.2) H 07/30/24 07:09
Phosphorus 7.0 mg/dl (2.5-4.5) H 07/29/24 08:07
Hdx-P-Qiwkwuyfvmn Pept > 28119 pg/ml 06/20/24 18:13
Albumin 2.3 g/dl (3.5-5.0) L 06/25/24 04:13
Physical Exam
-
Vital Signs:
Vital Signs
Temp Pulse Resp BP Pulse Ox
97.5 F 72 18 153/89 99
07/30/24 11:52 07/30/24 12:25 07/30/24 12:25 07/30/24 12:25 07/30/24 11:52
Cardiovascular:: Regular rate and rhythm
Respiratory:: Bilateral: Coarse
Lung Excursion:: Normal
Abdomen:: Nontender and Soft
Bowel Sounds:: Normal
Extremity Edema:: None: Bilateral:
--- NOTE | 2024-07-30 15:12 | CM ---
Patient seen at bedside on with daughter, ex and physician. Patient family and physician discussed at length medical concerns, patient for tap today per physician. Patient family and physician reviewed next steps and medical concerns.
Per family patient for surgery 08/04/24. CM will send additional referrals and reach out to possible facilities. CM will continue to follow for discharge planning needs.
Plan; SNF
[2024-07-30 15:51] VITALS: BP 159/90
[2024-07-30] MEDS: COZAAR 25 MG TUBE (19:12)
[2024-07-30] MEDS: CRESTOR 20 MG TUBE (19:13)
[2024-07-30] MEDS: HEPARIN SC ×2 (20:26→20:43)
[2024-07-30 23:07] VITALS: BP 143/75
[2024-07-30] MEDS: FOLVITE 2 MG TUBE (23:10)
[2024-07-30] MEDS: MELATONIN 5 MG TUBE (23:10)
[2024-07-31 05:40] VITALS: BMI 18.0
[2024-07-31 07:00] VITALS: BP 161/95
[2024-07-31] MEDS: SENSIPAR 90 MG TUBE ×2 (08:33→20:58)
[2024-07-31] MEDS: WELLBUTRIN REGULAR RELEASE 150 MG TUBE ×2 (08:33→20:59)
[2024-07-31] MEDS: HEPARIN 5000 UNITS SC ×2 (08:34→20:57)
[2024-07-31] MEDS: LOW STRENGTH ASPIRIN 81 MG TUBE (08:34)
[2024-07-31] MEDS: VISBIOME 1 CAP TUBE (08:34)
[2024-07-31] MEDS: ROBITUSSIN 200 MG TUBE ×4 (08:34→21:00)
[2024-07-31] MEDS: NSS (PRESERVATIVE FREE) 10 ML IV ×2 (08:34→20:58)
[2024-07-31] MEDS: PROTONIX IV 40 MG IV ×2 (08:34→20:58)
--- NOTE | 2024-07-31 08:38 | W.PN.HOSP.TC ---
Addendum entered and electronically signed by Isabella Marques MD 07/31/24 18:22:
I saw and evaluated the patient independently. I reviewed the resident�s note and agree with findings and plan as documented by Dr. Faria.
GENERAL: chronically ill appearing male cachectic
HEENT: NC/AT--O2 back on
HEART: regular rate and rhythm, +S1, +S2, tachy
LUNGS : clear to auscultation bilaterally--decreased BS left base
ABDOM: soft, nontender, nondistended, + bowel sounds
EXT: no cyanosis, clubbing, or edema
NEUROLOGIC: nonfocal
no changes--waiting for surgery
Acute hypoxic respiratory failure, ventilator dependent respiratory failure, s/p PEA/cardiac arrest -patient had episode of mucous plugging with respiratory arrest. Patient was bradycardic at that time and likely added to the problem. Patient
require ventilator support and was able to be extubated--back on O2-- Dyspnea has improved with x4 with thoracentesis. Remains at high risk of decompensation and further respiratory problems--pt c/o of SOB overnight into 07/29--refused CXR, CXR done
07/29 after HD--fluid recurred--IR consulted again tap for 750ml
Hypercalcemia/parathyroid adenoma/secondary hyperparathyroidism -patient has significant hypercalcemia and likely secondary to ESRD/secondary hyperparathyroidism and parathyroid adenoma found on imaging. Parathyroid hormone close to 1000. Patient
has been maximized on Cinacalcet and also has been provided calcitonin/bisphosphonates. In light of refractory nature of hypercalcemia surgery has been consulted, patient is a candidate for minimally invasive parathyroidectomy once pulmonary status
stabilizes-- surgery for parathyroid was postponed--pt and family now agreeable--Dr. Stroud re-notified--next scheduled surgery would be 08/04/24
Left mainstem bronchus obstruction, recurrent aspiration -patient have increased secretion and potential for recurrent bronchus obstruction and related complication-- pulmonary toileting--aspiration risk
Leukocytosis/hypothermia--likely aspiration pneumonitis--finished 5 days of Unasyn
New onset GI bleed on 6/2--pt does not want workup, GI said would be high risk--follow HGB--cont PPI--apprec GI--resolved
Recurrent pleural effusion--patient underwent right-sided thoracentesis of 1.1 L--And left-sided thoracentesis of 1450ml, 1750 ml, 750ml, 1600ml, 1150ml, 700ml-- A Pleurx catheter was planned although insurance approval did not come through-- will
need weekly thoracentesis set up, seems to recur in less than 1 week
NSTEMI -patient was managed conservatively and has finished few days of heparin drip therapy. Echocardiogram showing ejection fraction of 50 to 55%.
Diastolic heart failure exacerbation -patient volume status being managed by hemodialysis, patient makes some urine--recurrent pleural effusions not controlled with HD
Hx CVA w L hemiparesis, dysarthria, dysphagia-- cont tube feeding
ESRD on MWF HD--apprec renal
anemia of chronic disease- transfused 2 unit pRBCs
Severe calcific atherosclerotic plaque in the coronary arteries on CT Chest
Right chronically impacted humeral neck fracture -imaging finding on CT chest, needs to be verified with previous records
protein calorie malnutrition--cachectic, stage 2 pressure wound--on tube feeds--feel at least moderate if not severe
sacrum stage 2 pressure injury--cont local wound care---unclear to me if POA
Hyponatremia
Essential Hypertension
Hyperlipidemia
Carotid artery disease s/p R CEA
BPH
Depression
code status--DNI--wants chest compressions--patient very frustrated with the fact that his fluid has reaccumulated and needs another tap--seems frustrated by the entire medical condition--started conversation about Pleurx catheter, weekly
thoracentesis, 3 times per week dialysis, tube feedings, severe debilitation and needing rehab, upcoming surgery for parathyroidectomy and explained to patient that if he feels he cannot go on any further or does not want to keep moving forward that
hospice is a viable option. Also explained that there would be no need to make that decision immediately but that he should think about it and talk with his family. Only he can decide what he is willing to put up with and for how long regarding
his debilitation.
Had approximately 45-minute conversation by phone on July 20, 2024 with patient's daughter and patient's ex---explained conversation that I started with the patient Wednesday 07/19 regarding hospice and what he is willing to put up with, medical
conditions currently, upcoming surgery, general debilitation and the fact that he has been hospitalized here for approximately 1 month. They explained that he was at [facility] from February to April of this year, then went to rehab, and
now here. Explained that in my medical opinion, I do not believe that he will be here next year at this time and that he is hospice appropriate. They then questioned the utility of the parathyroid surgery scheduled for tomorrow. At this time, we
will postpone surgery and have notified Dr. Stroud. They are in full agreement with having a rai conversation with the patient but do not wish to do so until July 30 when they are available to be here bedside and speak in person. I did ask if they
were able to come in sooner than July 30 to which the reply was no.
Came to see patient on rounds on 07/21 and he was on the phone with his daughter Tawnya. I started the conversation with the patient that I had with Tawnya and her mom on Thursday 07/20. I explained that I do not think that the patient will be here next
year at this time. I also told him that I do not think that he is rehab-able and that he will likely not get home and he will be in a residential long-term. Told the patient that I think meeting with hospice and having a rai discussion will be
another piece of the puzzle for him to make an informed decision about what he wants moving forward. I did explain that hospice is comfort focused. Patient was going to think about it and continue discussions with his family. They are still
anticipating coming in July 30 2 to have a discussion about options he may have.
07/22 asked patient again regarding what he thought about hospice, goals of care that we do spoke about. He stated that his daughter and are coming tomorrow , July 23, 2024. He told me that he feels by choosing hospice that that is
being 'selfish'. He wants to be true to his Sikhism teaching. He asked to speak to a revenue investigator. We did contact radio announcer's office at his request.
pt and family have now decided against hospice and that he wants to continue moving forward
07/30 had meeting with daughter, and ex---showed them the chest x-ray of his recurrent pleural effusion--again, stated that I do not believe he will be here next year at this time, that he will be dependent upon residential and that he will never
go home--daughter replied, 'we are going to do what ever he wishes'
disposition planning--not LTAC candidate, not acute rehab candidate--no Asept cath per insurance--SNF.... Case management reported that patient daughter does not want him to leave the hospital without having his surgery even if he is medically
stable to do so, they also have not provided case management the outpatient dialysis center that he was at prior to his being hospitalized at [facility]
I reviewed patient's PT and OT notes and he cannot even sit on the side of the bed--I do not believe that he is rehab able--I believe that he will be a long-term residential resident, unfortunately
Original Note:
Today's Communication/Plan
-
- HD today
Assessment / Plan
Assessment / Plan
New onset GI bleed
- 07/27 start
- monitor Hb
- protonix IV BID
- appreciate GI input
L mainstem bronchus obstruction secondary to secretions
B/l pleural effusions likely secondary to underlying CHF and ESRD
SOB
- aspiration risk
- hx CVA/peg tube on tube feeding
- CPT
- resp cx: Pseudomonas, completed 7 days abx
- cont flutter valve
- L thoracentesis 06/21 #1: 1450 cc straw-colored pleural fluid
- R thoracentesis 06/22 #1: 1100 cc of clear yellow pleural fluid.
- L thoracentesis 06/29 #2: 1750 cc of serosanguineous pleural fluid.
- L thoracentesis 07/08 #3: 750 cc of clear yellow pleural fluid.
- L thoracentesis 07/19 #4: 1600 cc of straw colored pleural fluid
- L thoracentesis 07/26 #5: 1150 cc yellow pleural fluid evacuated
- L thoracentesis 07/30 #6: 700 cc of serosanguineous pleural fluid - - exudative
- appreciate pulm input
NSTEMI
CHF
- trop max 10.7
- was on a heparin drip
- Echo: LVEF 50-55%
- ASA, statin
- hold BB due to recent severe bradycardia
Acute on chronic HFpEF
- proBNP elevated
- echo: LVEF 50-55%
- volume overload managed by HD
Hypercalcemia secondary to parathyroid adenoma and hyperparathyroidism secondary to renal dysfunction
- vit D deficiency
- on cinacalcit
- CT CAP: enlarged parathyroid
- thyroid us: parathyroid adenoma
- pamidronate x1
- surgery consulted - agreeable to perform when medically stable - possibly 08/04
Hx CVA w L hemiparesis, dysarthria, dysphagia
- cont tube feeding
- PT/OT
- PMR consult
ESRD on MWF HD
anemia of chronic disease
- HD due 07/08
- transfused 2 unit pRBCs
Severe calcific atherosclerotic plaque in the coronary arteries on CT Chest
Right chronically impacted humeral neck fracture -imaging finding on CT chest, needs to be verified with previous records
Hyponatremia
Recent Flu
Benign Hypertension
Hyperlipidemia
Carotid artery disease s/p R CEA
BPH
Depression
Diet: tube feeding
DVT Prophylaxis: Heparin SUBQ
Code Status: limited - DNI only
Anticipated Discharge: > 48 hours
Subjective/Interval History
-
Date of Service: July 31, 2024
HD today. Thoracentesis yesterday. Pt tolerated procedure well. L shoulder pain
Objective Data
-
Labs:
Laboratory Results
07/31/24
06:00
WBC Pending
Hgb Pending
Hct Pending
Plt Count Pending
Sodium Pending
Potassium Pending
Chloride Pending
Carbon Dioxide Pending
BUN Pending
Creatinine Pending
Glucose Pending
Calcium Pending
Vital Signs:
Vital Signs
Temp Pulse Resp BP Pulse Ox
97.6 F 70 16 161/95 96
07/31/24 07:00 07/31/24 07:00 07/31/24 07:00 07/31/24 07:00 07/31/24 07:00
Review of Systems
-
History Source: Patient
Constitutional: Reports No Symptoms
Respiratory: Reports Trouble Breathing
Cardiac: Reports No Symptoms
Abdomen/GI: Reports Nausea
Neuro: Reports No Symptoms
Physical Exam
-
General: Appears Chronically Ill and Cachectic
HEENT: Normocephalic and Atraumatic
Respiratory: Clear to Auscultation and Accessory Resp Muscle Use
Cardiac: Regular Rhythm and S1/S2
GI: Soft, Nontender, Nondistended, Normal Bowel Sounds and Peg Tube
Musculoskeletal: No Clubbing, No Cyanosis and No Edema
Skin: Warm and Dry
Neuro: Awake, Alert and Oriented
Psych: Calm
[2024-07-31 10:30] VITALS: BP 163/90; PULSE 64; O2SAT 100
[2024-07-31] MEDS: ZOFRAN 4 MG IV (10:54)
[2024-07-31] MEDS: ROXICODONE 5 MG TUBE ×2 (10:54→21:25)
[2024-07-31 11:39] VITALS: BP 163/73; PULSE 64; O2SAT 98
[2024-07-31 13:27] LABS: Hematocrit 26.5 % (39.0-52.0); Hemoglobin 8.9 g/dL (13.0-18.0); Mean Corp Hgb Conc. 33.6 g/dL (33.0-37.0); Mean Corpuscular Hgb 30.1 pg (27.0-31.0); Mean Corpuscular Volume 89.5 fL (80.0-94.0); Mean Platelet Volume 9.4 fL (7.4-10.4); Platelet Count 323 10^3/uL (130-400); Red Blood Cell Count 2.96 10^6/uL (4.70-6.10); Red Cell Dist. Width 16.2 % (11.5-14.5); White Blood Cell Count 12.9 10^3/uL (4.8-10.8)
--- NOTE | 2024-07-31 13:57 | W.PN.NEPH.HD ---
Assessment
-
Seen on HD. no complaints. VSS, access ok
thoracentesis 07/30 exudative effusion
PTX 08/04
Progress Note - Hemodialysis
-
Date of Service: July 31, 2024
Duration: 30 minutes and 3 hours
Potassium Bath: 2
Calcium Bath: 2.5
Opti-Dialyzer: 160
Ultrafiltration: Other (2kg)
Blood Flow: 400
Dialysate Flow: 600
Heparin: no
EPO: [id number] units
[2024-07-31 14:21] LABS: Blood Urea Nitrogen 87 mg/dl (9-20); Calcium 12.5 mg/dl (8.4-10.2); Carbon Dioxide 28 mmol/L (22-30); Chloride 97 mmol/L (98-107); Estimated Creatinine Clearance 15 ml/min; Glucose 108 mg/dl (70-99); Potassium 4.1 mmol/L (3.5-5.1); Sodium 136 mmol/L (135-145); eGFR 15.53
[2024-07-31 15:00] VITALS: BP 101/55
[2024-07-31] MEDS: RETACRIT 10000 UNITS IV (15:31)
--- NOTE | 2024-07-31 16:13 | CM ---
Patient seen at bedside with physicians. CM sent updated clinicals to SNF options and will reach out to Liaison at [facility] to determine if patient medical condition has changed to be appropriate. CM will continue to follow for discharge planning needs.
Plan; SNF
[2024-07-31] MEDS: CRESTOR 20 MG TUBE (16:57)
[2024-07-31 17:00] LABS: Hepatitis B Surface Antigen Negative (Negative)
[2024-07-31] MEDS: FOLVITE 2 MG TUBE (21:00)
[2024-07-31] MEDS: MELATONIN 5 MG TUBE (21:00)
[2024-07-31 23:48] VITALS: BP 140/81
[2024-08-01 06:00] VITALS: BMI 17.9
[2024-08-01 06:07] VITALS: BP 158/83
--- NOTE | 2024-08-01 06:17 | PTCARENOTE ---
RN was changing, repositioning and weighing patient. Patient needed to lay flat. Patient had hard time catching breathe afterwards. Slightly SOB, using oral suction often. Initial pulse ox check was 100% on 1L NC. Patient requested something for
mucus or to make more comfortable. RN reached out to BIOINFORMATICS ENGINEER Catherine Healy. Reviewed chart. Current vital signs 97.4 temp ax, 20 RR, 74 HR, 158/83, 100% 1 L. One time morphine ordered. Patient agreeable to medication. Will continue to monitor.
[2024-08-01] MEDS: MORPHINE SULFATE 0.5 MG IV (06:27)
[2024-08-01] MEDS: PROTONIX IV 40 MG IV ×2 (08:18→20:53)
[2024-08-01] MEDS: NSS (PRESERVATIVE FREE) 10 ML IV ×2 (08:18→20:52)
[2024-08-01] MEDS: LOW STRENGTH ASPIRIN 81 MG TUBE (08:18)
[2024-08-01] MEDS: HEPARIN 5000 UNITS SC ×2 (08:18→20:52)
[2024-08-01] MEDS: SENSIPAR 90 MG TUBE ×2 (08:19→20:53)
[2024-08-01] MEDS: ROBITUSSIN 200 MG TUBE ×4 (08:19→21:00)
[2024-08-01] MEDS: WELLBUTRIN REGULAR RELEASE 150 MG TUBE ×2 (08:19→20:53)
[2024-08-01] MEDS: VISBIOME 1 CAP TUBE (08:19)
--- NOTE | 2024-08-01 10:50 | W.PN.NEPH.PH ---
Today's Communication / Plan
-
follow Calcium
Assessment/Plan
-
Impression:
ESRD MWF
Hypoxia/left lung atelectasis versus pneumonia
Large left pleural effusion s/p thoracentesis 06/21
CHF
Anemia
Hypertension hx
Hyponatremia
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
Hyperphosphatemia
PEG
Non-ST elevation [place]
History of stroke with subsequent left hemiparesis dysarthria and dysphagia
Tunneled right HD IJ catheter
Chronic impacted right proximal humerus fracture
hypercalcemia
Plan:
continue very high dosing of sensipar which fails to control the calcium. Needs PTX, plan for 08/04
now with exudative pleural effusions
these cannot be controlled with HD
-
-
Date of Service: August 01, 2024
CC / HPI / ROS
-
Chief Complaint:
ESRD
History of Present Illness:
hemodynamically stable
Hemodialysis on Saturday schedule
tolerated HD yesterday
calcium remains high >12 despite high dosing of sensipar
requiring weekly thoracentesis
Review of Systems:
No chest pain
No fever
mild sob still, on supplemental O2
wants to exercise more
Labs
-
Labs:
eGFR 15.53 07/31/24 12:46
Phosphorus 7.0 mg/dl (2.5-4.5) H 07/29/24 08:07
Mql-F-Wbeetfngxfp Pept > 71051 pg/ml 06/20/24 18:13
Albumin 2.3 g/dl (3.5-5.0) L 06/25/24 04:13
Physical Exam
-
Vital Signs:
Vital Signs
Temp Pulse Resp BP Pulse Ox
97.4 F 74 20 158/83 100
08/01/24 06:14 08/01/24 06:07 08/01/24 06:07 08/01/24 06:07 08/01/24 06:07
Cardiovascular:: Regular rate and rhythm
Respiratory:: Bilateral: Coarse
Lung Excursion:: Normal
Abdomen:: Nontender and Soft
Bowel Sounds:: Normal
Extremity Edema:: None: Bilateral:
[2024-08-01 11:39] LABS: Hematocrit 29.2 % (39.0-52.0); Hemoglobin 9.7 g/dL (13.0-18.0); Mean Corp Hgb Conc. 33.2 g/dL (33.0-37.0); Mean Corpuscular Hgb 30.1 pg (27.0-31.0); Mean Corpuscular Volume 90.7 fL (80.0-94.0); Mean Platelet Volume 8.4 fL (7.4-10.4); Platelet Count 298 10^3/uL (130-400); Red Blood Cell Count 3.22 10^6/uL (4.70-6.10); Red Cell Dist. Width 16.4 % (11.5-14.5); White Blood Cell Count 12.6 10^3/uL (4.8-10.8)
[2024-08-01 12:06] LABS: Blood Urea Nitrogen 57 mg/dl (9-20); Calcium 12.1 mg/dl (8.4-10.2); Carbon Dioxide 27 mmol/L (22-30); Chloride 100 mmol/L (98-107); Estimated Creatinine Clearance 20 ml/min; Glucose 105 mg/dl (70-99); Sodium 137 mmol/L (135-145); eGFR 22.85
--- NOTE | 2024-08-01 13:17 | W.PN.HOSP.TC ---
Today's Communication/Plan
-
added thorazine for hiccups
Assessment / Plan
Assessment / Plan
pt is a 68 year old male
Acute hypoxic respiratory failure, ventilator dependent respiratory failure, s/p PEA/cardiac arrest -patient had episode of mucous plugging with respiratory arrest. Patient was bradycardic at that time and likely added to the problem. Patient
require ventilator support and was able to be extubated--back on O2-- Dyspnea has improved with x4 with thoracentesis. Remains at high risk of decompensation and further respiratory problems--SOB overnight into 07/29-- CXR done 07/29 after HD--fluid
recurred--IR consulted again tap for 750ml
Hypercalcemia/parathyroid adenoma/secondary hyperparathyroidism -patient has significant hypercalcemia and likely secondary to ESRD/secondary hyperparathyroidism and parathyroid adenoma found on imaging. Parathyroid hormone close to 1000. Patient
has been maximized on Cinacalcet and also has been provided calcitonin/bisphosphonates. In light of refractory nature of hypercalcemia surgery has been consulted, patient is a candidate for minimally invasive parathyroidectomy once pulmonary status
stabilizes-- surgery for parathyroid 08/04/24
Left mainstem bronchus obstruction, recurrent aspiration -patient have increased secretion and potential for recurrent bronchus obstruction and related complication-- pulmonary toileting--aspiration risk
Leukocytosis/hypothermia--likely aspiration pneumonitis--finished 5 days of Unasyn
New onset GI bleed on 07/27--pt does not want workup, GI said would be high risk--follow HGB--cont PPI--apprec GI--resolved
Recurrent pleural effusion--patient underwent right-sided thoracentesis of 1.1 L--And left-sided thoracentesis of 1450ml, 1750 ml, 750ml, 1600ml, 1150ml, 700ml-- A Pleurx catheter was planned although insurance approval did not come through-- will
need weekly thoracentesis set up, seems to recur in less than 1 week
hiccups--adding PRN thorazine
NSTEMI -patient was managed conservatively and has finished few days of heparin drip therapy. Echocardiogram showing ejection fraction of 50 to 55%.
Diastolic heart failure exacerbation -patient volume status being managed by hemodialysis, patient makes some urine--recurrent pleural effusions not controlled with HD
Hx CVA w L hemiparesis, dysarthria, dysphagia-- cont tube feeding
ESRD on MWF HD--apprec renal
anemia of chronic disease- transfused 2 unit pRBCs
Severe calcific atherosclerotic plaque in the coronary arteries on CT Chest
Right chronically impacted humeral neck fracture -imaging finding on CT chest, needs to be verified with previous records
protein calorie malnutrition--cachectic, stage 2 pressure wound--on tube feeds--feel at least moderate if not severe
sacrum stage 2 pressure injury--cont local wound care---unclear to me if POA
Hyponatremia
Essential Hypertension
Hyperlipidemia
Carotid artery disease s/p R CEA
BPH
Depression
code status--DNI--wants chest compressions--patient very frustrated with the fact that his fluid has reaccumulated and needs another tap--seems frustrated by the entire medical condition--started conversation about Pleurx catheter, weekly
thoracentesis, 3 times per week dialysis, tube feedings, severe debilitation and needing rehab, upcoming surgery for parathyroidectomy and explained to patient that if he feels he cannot go on any further or does not want to keep moving forward that
hospice is a viable option. Also explained that there would be no need to make that decision immediately but that he should think about it and talk with his family. Only he can decide what he is willing to put up with and for how long regarding
his debilitation.
Had approximately 45-minute conversation by phone on July 20, 2024 with patient's daughter and patient's ex---explained conversation that I started with the patient Wednesday 07/19 regarding hospice and what he is willing to put up with, medical
conditions currently, upcoming surgery, general debilitation and the fact that he has been hospitalized here for approximately 1 month. They explained that he was at [facility] from February to April of this year, then went to rehab, and
now here. Explained that in my medical opinion, I do not believe that he will be here next year at this time and that he is hospice appropriate. They then questioned the utility of the parathyroid surgery scheduled for tomorrow. At this time, we
will postpone surgery and have notified Dr. Stroud. They are in full agreement with having a rai conversation with the patient but do not wish to do so until July 30 when they are available to be here bedside and speak in person. I did ask if they
were able to come in sooner than July 30 to which the reply was no.
Came to see patient on rounds on 07/21 and he was on the phone with his daughter Tawnya. I started the conversation with the patient that I had with Tawnya and her mom on Thursday 07/20. I explained that I do not think that the patient will be here next
year at this time. I also told him that I do not think that he is rehab-able and that he will likely not get home and he will be in a half-way long-term. Told the patient that I think meeting with hospice and having a rai discussion will be
another piece of the puzzle for him to make an informed decision about what he wants moving forward. I did explain that hospice is comfort focused. Patient was going to think about it and continue discussions with his family. They are still
anticipating coming in July 30 2 to have a discussion about options he may have.
07/22 asked patient again regarding what he thought about hospice, goals of care that we do spoke about. He stated that his daughter and are coming tomorrow June. He told me that he feels by choosing hospice that that is
being 'selfish'. He wants to be true to his Jewish teaching. He asked to speak to a concrete pourer. We did contact tilt tray driver's office at his request.
pt and family have now decided against hospice and that he wants to continue moving forward
07/30 had meeting with daughter, and ex---showed them the chest x-ray of his recurrent pleural effusion--again, stated that I do not believe he will be here next year at this time, that he will be dependent upon half-way and that he will never
go home--daughter replied, 'we are going to do what ever he wishes'
disposition planning--not LTAC candidate, not acute rehab candidate--no Asept cath per insurance--SNF.... Case management reported that patient daughter does not want him to leave the hospital without having his surgery even if he is medically
stable to do so, they also have not provided case management the outpatient dialysis center that he was at prior to his being hospitalized at [facility]
I reviewed patient's PT and OT notes and he cannot even sit on the side of the bed--I do not believe that he is rehab able--I believe that he will be a long-term half-way resident, unfortunately
Anticipated Discharge: > 48 hours
Subjective/Interval History
-
Date of Service: August 01, 2024
pt complains of hiccups
Objective Data
-
Labs:
Laboratory Results
08/01/24
11:33
WBC 12.6 H
Hgb 9.7 L
Hct 29.2 L
Plt Count 298
Sodium 137
Potassium 4.0
Chloride 100
Carbon Dioxide 27
BUN 57 H
Creatinine 2.9 H
Glucose 105 H
Calcium 12.1 H
Vital Signs:
max temp for 24 hours
08/01/24
06:14
Temp 97.4 F
Vital Signs
Temp Pulse Resp BP Pulse Ox
97.4 F 74 20 158/83 100
08/01/24 06:14 08/01/24 06:07 08/01/24 06:07 08/01/24 06:07 08/01/24 06:07
I&O
07/31/24 08/01/24 08/02/24
06:59 06:59 06:59
Intake Total 1690 / 1690
Output Total 0 / 0
Balance 1690 / 1690
Review of Systems
-
All other systems: Reviewed and negative
Abdomen/GI: Reports Other (hiccups)
Breast: Reports No Symptoms
Physical Exam
-
General: Appears Chronically Ill and Cachectic
HEENT: Normocephalic, Atraumatic and Oxygen
Respiratory: Decreased Breath Sounds
Cardiac: Regular Rhythm and S1/S2
GI: Soft, Nontender, Nondistended, Normal Bowel Sounds and Peg Tube
Musculoskeletal: No Clubbing, No Cyanosis and No Edema
Neuro: Awake
Psych: Calm
[2024-08-01 13:52] VITALS: BP 159/85
[2024-08-01 15:00] VITALS: BP 158/91
[2024-08-01] MEDS: CRESTOR 20 MG TUBE (18:28)
[2024-08-01] MEDS: COZAAR 25 MG TUBE (18:28)
[2024-08-01] MEDS: THORAZINE 10 MG TUBE (18:31)
[2024-08-01] MEDS: MELATONIN 5 MG TUBE (21:00)
[2024-08-01] MEDS: FOLVITE 2 MG TUBE (21:00)
[2024-08-01 23:55] VITALS: BP 140/89
[2024-08-02 07:00] VITALS: BP 140/72
[2024-08-02] MEDS: LOW STRENGTH ASPIRIN 81 MG TUBE (08:45)
[2024-08-02] MEDS: HEPARIN 5000 UNITS SC ×2 (08:45→20:31)
[2024-08-02] MEDS: ROBITUSSIN 200 MG TUBE ×3 (08:46→21:54)
[2024-08-02] MEDS: SENSIPAR 90 MG TUBE ×2 (08:46→20:35)
[2024-08-02] MEDS: PROTONIX IV 40 MG IV ×2 (08:46→20:33)
[2024-08-02] MEDS: VISBIOME 1 CAP TUBE (08:46)
[2024-08-02] MEDS: NSS (PRESERVATIVE FREE) 10 ML IV ×2 (08:47→20:33)
[2024-08-02] MEDS: WELLBUTRIN REGULAR RELEASE 150 MG TUBE ×2 (08:49→20:38)
--- NOTE | 2024-08-02 11:22 | W.PN.NEPH.PH ---
Today's Communication / Plan
-
HD tomorrow
Assessment/Plan
-
Impression:
ESRD MWF
Hypoxia/left lung atelectasis versus pneumonia
Large left pleural effusion s/p thoracentesis 06/21
CHF
Anemia
Hypertension hx
Hyponatremia
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
Hyperphosphatemia
PEG
Non-ST elevation PA
History of stroke with subsequent left hemiparesis dysarthria and dysphagia
Tunneled right HD IJ catheter
Chronic impacted right proximal humerus fracture
hypercalcemia
Plan:
continue very high dosing of sensipar which fails to control the calcium. Needs PTX, plan for 08/04
now with exudative pleural effusions
these cannot be controlled with HD
HD tomorrow
-
-
Date of Service: August 02, 2024
CC / HPI / ROS
-
Chief Complaint:
ESRD
History of Present Illness:
hemodynamically stable
Hemodialysis on Saturday schedule
tolerated HD yesterday
calcium remains high >12 despite high dosing of sensipar, no labs this am
requiring weekly thoracentesis
Review of Systems:
No chest pain
No fever
mild sob still, on supplemental O2
Labs
-
Labs:
eGFR 22.85 08/01/24 11:33
Phosphorus 7.0 mg/dl (2.5-4.5) H 07/29/24 08:07
Ass-U-Dchyefkgmhi Pept > 22389 pg/ml 06/20/24 18:13
Physical Exam
-
Vital Signs:
Vital Signs
Temp Pulse Resp BP Pulse Ox
97.3 F 67 18 140/72 95
08/02/24 07:00 08/02/24 07:00 08/02/24 07:00 08/02/24 07:00 08/02/24 08:13
Cardiovascular:: Regular rate and rhythm
Respiratory:: Bilateral: Coarse
Lung Excursion:: Normal
Abdomen:: Nontender and Soft
Bowel Sounds:: Normal
Extremity Edema:: None: Bilateral:
--- NOTE | 2024-08-02 13:21 | W.PN.PUL3 ---
Today's Communication / Plan
-
- Follow-up chest x-ray 08/03
- If developing pleural effusion, recommend interventional radiology consultation to evaluate for chest tube placement and chemical pleurodesis
Assessment
-
Patient is a 60-year-old gentleman with known history of carotid artery disease status post right CEA in the past, end-stage renal disease on hemodialysis, hypertension, hyperlipidemia, HFrEF 40-45%, CVA, who was brought from the [facility]
facility for worsening shortness of breath. Patient reportedly has been feeling short of breath over the last couple of weeks which has been progressively getting worse. Reported diagnosis of Flu-has been on Tamiflu. In view of worsening
respiratory status he was transferred to the emergency room for further workup. Imaging in the emergency room showing showed near complete collapse of the left lung with large pleural effusion as well as moderate pleural effusion on the right side.
Patient also was noted to have significantly elevated troponin along with sinus bradycardia. Patient was started on broad-spectrum antibiotics, aspirin as well as heparin drip for suspected NSTEMI and was admitted to hospitalist service. In view
of large effusion, interventional radiology and pulmonary service were requested for further input. Patient had thoracentesis performed with gradual improvement. Patient subsequently had a cardiopulmonary arrest and required CPR on 06/23 and CODE
STATUS was reversed from DNR to full code. Patient was intubated for 2 days and it was felt to be related to mucous plug obstructing left main bronchus. Patient was successfully extubated on 06/25/24.
Bilateral pleural effusions left > right status post thoracentesis x 6 since 06/21/2024,
Status post intubation and mechanical ventilation-06/23/2024 through 06/25/2024
Cardiac arrest status post asystole-epi, CPR ROSC in 3 minutes
Sinus bradycardia - now normal heart rate
Lung atelectasis due to mucous plugging and pleural effusion
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
CHF with preserved EF
End-stage renal disease on hemodialysis
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
PEG placement
GERD
HTN
HLD
Hypothyroidism
Plan
# Recurrent pleural effusions, s/p 6 thoracentesis this admissions.
- Left sided re-accumulation mostly
- Initial fluid studies transudative, lately more exudative. Suspect this is a pseudo exudative pattern noted in the setting of NSAID renal disease and hemodialysis. Cultures and cytology have stayed negative and no underlying pneumonia noted post
imaging
- Unfortunately aseptic catheter could not be pursued due to lack of insurance authorization
- Surgical decortication might not be an option considering his multiple comorbidities and very poor functional status
-Recommend follow-up chest x-ray on 08/03. If he has developing left-sided pleural effusion, recommend interventional radiology guided chest tube placement followed by attempted chemical pleurodesis.
-Discussed with the patient and he is agreeable to proceed.
Status post intubation 06/23/24 and extubated 06/25/2024
Aspiration precautions
Mucus clearing devices-he has tried vest therapy in the past without much success according to patient
Duonebs PRN
Chest x-ray 07/09/2023-small right pleural effusion, improved aeration of the left lung with some left basilar consolidation
Follow CXR occasional
CXR on 07/13 shows slight return off effusion but not significant for further therapeutic thora
Interventional radiology-thoracentesis performed 07/08/2024 urgently due to significant shortness of breath -- transudative pleural effusion
Thoracentesis L 07/08/24--750 mL of yellow pleural fluid- Tot P 3.2 - [facility] 87, culture neg
s/p L thora 06/29/24 1750: Tot P 2.9 - [facility] 108, culture/cyto neg
s/p R thora 06/22/24 1100, culture/cyto neg
s/p L thora 06/21/24 1450, culture/cyto neg
s/p L thora, 07/26 and 07/30
Follow chest x-ray PRN
Can hold off further taps if patient has mild fluid and no symptoms
Prefer to remove fluid via HD if able
Cultures reviewed
Sputum was cultured on 06/23/20244622-[id number] 7 days of antibiotics-suspected colonization rather than active pneumonia
Monitor off abx if no further fever/WBC count
Nephrology following-correspondence reviewed
Hemodialysis [id number]
Parathyroidectomy will likely be needed for persistent hypercalcemia-surgery evaluated-surgery once medically stable
HD planning continued with volume removal
Follow daily weights
DVT prophylaxis-on subcu heparin
Nutrition-on tube feeds
Bedside range of motion/physical therapy
Discharge planning per team
Reviewed with nursing
Poor prognosis
Recommend palliative care consult
No additional recommendations at this time. Pulmonary service will now sign off. Thank you for allowing us to be involved in the care of this patient. Please reconsult if there are any additional questions/concerns, or if patient's respiratory
status deteriorates.
Family meeting
Dr. Garcia met with patient's daughter as well as ex-. Goals of care discussions took place in the presence of palliative care nurse. Patient's family requesting medical team to discuss again with the patient regarding his CODE STATUS and
wishes in future as he had been DNR/DNI in the past but was temporarily intubated in the setting of mucous plug.
Data:
CXR 05/2024: 1. Near complete opacification of the left hemithorax which is likely secondary to a large left pleural effusion and airspace consolidation (compressive atelectasis or pneumonia).
2. Moderate ground-glass opacity in the infrahilar right lower lung which could be subsegmental atelectasis or pneumonia.
3. Right IJ hemodialysis catheter in place.
4. Chronic impacted fracture of the right humeral neck.
CT Chest 05/2024: 1. Complete endobronchial obstruction of the left mainstem bronchus containing layering secretions. SEVERE NEAR COMPLETE AIRSPACE CONSOLIDATION of the LEFT UPPER and LOWER LOBES (either atelectasis or pneumonia).
2. LARGE LEFT PLEURAL EFFUSION.
3. Moderate to large right pleural effusion.
4. Moderate to severe cardiomegaly.
5. Severe calcific atherosclerotic plaque in the coronary arteries.
6. Right IJ hemodialysis catheter in place.
7. Chronic impacted fracture of the right proximal humerus.
Total time spent today was 41 minutes for this encounter. Time includes reviewing laboratory test/imaging results, reviewing pertinent medical records, obtaining and reviewing medical history, performing an appropriate exam, ordering medications,
tests and procedures. Time also includes documentation of this encounter, coordinating patient care and communicating with other healthcare professionals. Total time does not include separately billed tests performed on this date of service.
Subjective Data
-
Date of Service:
Date of Service: August 02, 2024
Chief Complaint: Pulmonary Follow Up (Hypoxemic respiratory failure-bilateral pleural effusion) and Dyspnea Follow Up
Subjective:
Patient lying in bed, with suction
Current hand, reports that his breathing is not great.
Objective Data
Data Reviewed
Vital Signs / I&O / Oxygen:
Vital Signs
Temp Pulse Resp BP Pulse Ox
97.3 F 67 18 140/72 95
08/02/24 07:00 08/02/24 07:00 08/02/24 07:00 08/02/24 07:00 08/02/24 08:13
Intake and Output
08/01/24 08/02/24 08/03/24
06:59 06:59 06:59
Intake Total 1690 / 1690 980 / 980
Output Total 0 / 0
Balance 1690 / 1690 980 / 980
SaO2 [CPAP] 99
SaO2 [A/C] 99
SaO2 95
Nasal Cannula flow liters per 1
minute
Physical Exam
General: Respiratory Distress (n) and Comfortable
HEENT: Normocephalic, Anicteric and Moist Mucous Membranes
Cardiovascular: S1-S2 and Peripheral Edema (negative)
Respiratory: Rhonchi (Predominantly on the left side) and Other (Diminished breath sounds on the left)
GI: Soft, Non Distended, Non Tender and Normal Bowel Sounds
Neurology: Awake, Alert and Tremors (negative)
Skin: Warm, Dry, Cyanosis (n) and Jaundice (negative)
Labs/Micro/Reports
Microbiology
07/30/24 12:20 Pleural Fluid Body Fluid Culture - Final
No Growth After 72 Hours
07/30/24 12:20 Pleural Fluid Gram Stain - Final
--- NOTE | 2024-08-02 13:42 | W.PN.HOSP.TC ---
Today's Communication/Plan
-
parathyroid surgery Saturday
CXR in AM
possible chest tube with pleurodesis
Assessment / Plan
Assessment / Plan
pt is a 68 year old male
Acute hypoxic respiratory failure, ventilator dependent respiratory failure, s/p PEA/cardiac arrest -patient had episode of mucous plugging with respiratory arrest. Patient was bradycardic at that time and likely added to the problem. Patient
require ventilator support and was able to be extubated--back on O2-- Dyspnea has improved with x4 with thoracentesis. Remains at high risk of decompensation and further respiratory problems--SOB overnight into 07/29-- CXR done 07/29 after HD--fluid
recurred--IR consulted again tap for 750ml
Hypercalcemia/parathyroid adenoma/secondary hyperparathyroidism -patient has significant hypercalcemia and likely secondary to ESRD/secondary hyperparathyroidism and parathyroid adenoma found on imaging. Parathyroid hormone close to 1000. Patient
has been maximized on Cinacalcet and also has been provided calcitonin/bisphosphonates. In light of refractory nature of hypercalcemia surgery has been consulted, patient is a candidate for minimally invasive parathyroidectomy once pulmonary status
stabilizes-- surgery for parathyroid 08/04/24
Left mainstem bronchus obstruction, recurrent aspiration -patient have increased secretion and potential for recurrent bronchus obstruction and related complication-- pulmonary toileting--aspiration risk
Leukocytosis/hypothermia--likely aspiration pneumonitis--finished 5 days of Unasyn
New onset GI bleed on 07/27--pt does not want workup, GI said would be high risk--follow HGB--cont PPI--apprec GI--resolved
Recurrent pleural effusion--patient underwent right-sided thoracentesis of 1.1 L--And left-sided thoracentesis of 1450ml, 1750 ml, 750ml, 1600ml, 1150ml, 700ml-- A Pleurx catheter was planned although insurance approval did not come through-- will
need weekly thoracentesis set up, seems to recur in less than 1 week--apprec pulm, CXR in AM, if enough fluid then chest tube with pleurodesis
hiccups--adding PRN thorazine
NSTEMI -patient was managed conservatively and has finished few days of heparin drip therapy. Echocardiogram showing ejection fraction of 50 to 55%.
Diastolic heart failure exacerbation -patient volume status being managed by hemodialysis, patient makes some urine--recurrent pleural effusions not controlled with HD--pseudo exudative as per pulm
Hx CVA w L hemiparesis, dysarthria, dysphagia-- cont tube feeding
ESRD on MWF HD--apprec renal
anemia of chronic disease- transfused 2 unit pRBCs
Severe calcific atherosclerotic plaque in the coronary arteries on CT Chest
Right chronically impacted humeral neck fracture -imaging finding on CT chest, needs to be verified with previous records
protein calorie malnutrition--cachectic, stage 2 pressure wound--on tube feeds--feel at least moderate if not severe
sacrum stage 2 pressure injury--cont local wound care---unclear to me if POA
Hyponatremia
Essential Hypertension
Hyperlipidemia
Carotid artery disease s/p R CEA
BPH
Depression
code status--DNI--wants chest compressions--patient very frustrated with the fact that his fluid has reaccumulated and needs another tap--seems frustrated by the entire medical condition--started conversation about Pleurx catheter, weekly
thoracentesis, 3 times per week dialysis, tube feedings, severe debilitation and needing rehab, upcoming surgery for parathyroidectomy and explained to patient that if he feels he cannot go on any further or does not want to keep moving forward that
hospice is a viable option. Also explained that there would be no need to make that decision immediately but that he should think about it and talk with his family. Only he can decide what he is willing to put up with and for how long regarding
his debilitation.
Had approximately 45-minute conversation by phone on July 20, 2024 with patient's daughter and patient's ex---explained conversation that I started with the patient Wednesday 07/19 regarding hospice and what he is willing to put up with, medical
conditions currently, upcoming surgery, general debilitation and the fact that he has been hospitalized here for approximately 1 month. They explained that he was at [facility] from February to April of this year, then went to rehab, and
now here. Explained that in my medical opinion, I do not believe that he will be here next year at this time and that he is hospice appropriate. They then questioned the utility of the parathyroid surgery scheduled for tomorrow. At this time, we
will postpone surgery and have notified Dr. Stroud. They are in full agreement with having a rai conversation with the patient but do not wish to do so until July 30 when they are available to be here bedside and speak in person. I did ask if they
were able to come in sooner than July 30 to which the reply was no.
Came to see patient on rounds on 07/21 and he was on the phone with his daughter Tawnya. I started the conversation with the patient that I had with Tawnya and her mom on Thursday 07/20. I explained that I do not think that the patient will be here next
year at this time. I also told him that I do not think that he is rehab-able and that he will likely not get home and he will be in a [facility] long-term. Told the patient that I think meeting with hospice and having a rai discussion will be
another piece of the puzzle for him to make an informed decision about what he wants moving forward. I did explain that hospice is comfort focused. Patient was going to think about it and continue discussions with his family. They are still
anticipating coming in July 30 to have a discussion about options he may have.
07/22 asked patient again regarding what he thought about hospice, goals of care that we do spoke about. He stated that his daughter and are coming tomorrow , July 23, 2024. He told me that he feels by choosing hospice that that is
being 'selfish'. 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 He asked to speak to a family court counsellor. We did contact power plant mechanic's office at his request.
pt and family have now decided against hospice and that he wants to continue moving forward
07/30 had meeting with daughter, and ex---showed them the chest x-ray of his recurrent pleural effusion--again, stated that I do not believe he will be here next year at this time, that he will be dependent upon [facility] and that he will never
go home--daughter replied, 'we are going to do what ever he wishes'
disposition planning--not LTAC candidate, not acute rehab candidate--no Asept cath per insurance--SNF.... Case management reported that patient daughter does not want him to leave the hospital without having his surgery even if he is medically
stable to do so, they also have not provided case management the outpatient dialysis center that he was at prior to his being hospitalized at [facility]
I reviewed patient's PT and OT notes and he cannot even sit on the side of the bed--I do not believe that he is rehab able--I believe that he will be a long-term [facility] resident, unfortunately
Anticipated Discharge: > 48 hours
Subjective/Interval History
-
Date of Service: August 02, 2024
no labs drawn today
Objective Data
-
Vital Signs:
max temp for 24 hours
08/01/24
13:52
Temp 97.4 F
Vital Signs
Temp Pulse Resp BP Pulse Ox
97.3 F 67 18 140/72 95
08/02/24 07:00 08/02/24 07:00 08/02/24 07:00 08/02/24 07:00 08/02/24 08:13
I&O
08/01/24 08/02/24 08/03/24
06:59 06:59 06:59
Intake Total 1689 980 / 980
Output Total 0 / 0
Balance 1689 980 / 980
Review of Systems
-
All other systems: Reviewed and negative
Physical Exam
-
General: Appears Chronically Ill (chronically ill cachectic male )
HEENT: Normocephalic, Atraumatic and Oxygen
Respiratory: Decreased Breath Sounds
Cardiac: Regular Rhythm and S1/S2; Negative Murmur
GI: Soft, Nontender, Nondistended, Normal Bowel Sounds and Peg Tube
Musculoskeletal: No Clubbing, No Cyanosis and No Edema
Skin: Warm
Neuro: Awake
[2024-08-02] MEDS: ROBITUSSIN TUBE (14:11)
[2024-08-02 15:00] VITALS: BP 161/65
--- NOTE | 2024-08-02 16:06 | CM ---
CM reviewed chart, patient for parathyroid surgery Saturday, CXR in AM. HD tomorrow. CM will continue to follow for all discharge planning needs.
Plan; will depend on patients progress in hospital, SNF referrals previously placed, will need HD at facility
[2024-08-02] MEDS: CRESTOR 20 MG TUBE (17:46)
[2024-08-02] MEDS: COZAAR 25 MG TUBE (17:46)
[2024-08-02] MEDS: MELATONIN 5 MG TUBE (21:54)
[2024-08-02] MEDS: FOLVITE 2 MG TUBE (21:54)
[2024-08-03 00:12] VITALS: BP 157/79
[2024-08-03 07:42] LABS: Hematocrit 28.6 % (39.0-52.0); Hemoglobin 9.4 g/dL (13.0-18.0); Mean Corp Hgb Conc. 32.9 g/dL (33.0-37.0); Mean Corpuscular Hgb 29.7 pg (27.0-31.0); Mean Corpuscular Volume 90.5 fL (80.0-94.0); Mean Platelet Volume 8.9 fL (7.4-10.4); Platelet Count 315 10^3/uL (130-400); Red Blood Cell Count 3.16 10^6/uL (4.70-6.10); Red Cell Dist. Width 16.4 % (11.5-14.5); White Blood Cell Count 11.7 10^3/uL (4.8-10.8)
[2024-08-03 07:48] VITALS: BP 175/83
--- NOTE | 2024-08-03 08:14 | W.PN.HOSP.TC ---
Addendum entered and electronically signed by Benedict Villarreal MD 08/03/24 14:24:
I saw and evaluated the patient. I reviewed the resident�s note and agree with findings and plan as documented in the resident�s note.
Acute hypoxic respiratory failure, ventilator dependent respiratory failure, s/p PEA/cardiac arrest -patient had episode of mucous plugging with respiratory arrest. Patient was bradycardic at that time and likely added to the problem. Patient
require ventilator support and was able to be extubated--back on O2-- Dyspnea has improved with x6 with thoracentesis. Remains at high risk of decompensation and further respiratory problems
Hypercalcemia/parathyroid adenoma/secondary hyperparathyroidism -patient has significant hypercalcemia and likely secondary to ESRD/secondary hyperparathyroidism and parathyroid adenoma found on imaging. Parathyroid hormone close to 1000. Patient
has been maximized on Cinacalcet and also has been provided calcitonin/bisphosphonates. In light of refractory nature of hypercalcemia surgery has been consulted, patient is a candidate for minimally invasive parathyroidectomy once pulmonary status
stabilizes-- surgery for parathyroid 08/04/24
Recurrent pleural effusion--patient underwent right-sided thoracentesis of 1.1 L--And left-sided thoracentesis of 1450ml, 1750 ml, 750ml, 1600ml, 1150ml, 700ml-- A Pleurx catheter was planned although insurance approval did not come through-- will
need weekly thoracentesis set up, seems to recur in less than 1 week-pulmonology recommended chemcial pleurodesis and will discuss with family.
Left mainstem bronchus obstruction, recurrent aspiration -patient have increased secretion and potential for recurrent bronchus obstruction and related complication-- pulmonary toileting--aspiration risk
Leukocytosis/hypothermia--likely aspiration pneumonitis--finished 5 days of Unasyn
New onset GI bleed on 07/27--pt does not want workup, GI said would be high risk--follow HGB--cont PPI--apprec GI--resolved
hiccups--adding PRN thorazine
NSTEMI -patient was managed conservatively and has finished few days of heparin drip therapy. Echocardiogram showing ejection fraction of 50 to 55%.
Diastolic heart failure exacerbation -patient volume status being managed by hemodialysis, patient makes some urine--recurrent pleural effusions not controlled with HD--pseudo exudative as per pulm
Hx CVA w L hemiparesis, dysarthria, dysphagia-- cont tube feeding
ESRD on MWF HD--apprec renal
anemia of chronic disease- transfused 2 unit pRBCs
Severe calcific atherosclerotic plaque in the coronary arteries on CT Chest
Right chronically impacted humeral neck fracture -imaging finding on CT chest, needs to be verified with previous records
protein calorie malnutrition--cachectic, stage 2 pressure wound--on tube feeds--feel at least moderate if not severe
sacrum stage 2 pressure injury--cont local wound care---unclear to me if POA
Hyponatremia
Essential Hypertension
Hyperlipidemia
Carotid artery disease s/p R CEA
BPH
Depression
code status--DNI--wants chest compressions
Case discussed with pulmonology
Original Note:
Today's Communication/Plan
-
- parathyroidectomy tw
- HD today
- NPO after midnight
Assessment / Plan
Assessment / Plan
L mainstem bronchus obstruction secondary to secretions
B/l pleural effusions likely secondary to underlying CHF and ESRD
SOB
- aspiration risk
- hx CVA/peg tube on tube feeding
- CPT
- resp cx: Pseudomonas, completed 7 days abx
- cont flutter valve
- L thoracentesis 06/21 #1: 1450 cc straw-colored pleural fluid
- R thoracentesis 06/22 #1: 1100 cc of clear yellow pleural fluid.
- L thoracentesis 06/29 #2: 1750 cc of serosanguineous pleural fluid.
- L thoracentesis 07/08 #3: 750 cc of clear yellow pleural fluid.
- L thoracentesis 07/19 #4: 1600 cc of straw colored pleural fluid
- L thoracentesis 07/26 #5: 1150 cc yellow pleural fluid evacuated
- L thoracentesis 07/30 #6: 700 cc of serosanguineous pleural fluid - - exudative
- appreciate pulm input
NSTEMI
CHF
- trop max 10.7
- was on a heparin drip
- Echo: LVEF 50-55%
- ASA, statin
- hold BB due to recent severe bradycardia
Acute on chronic HFpEF
- proBNP elevated
- echo: LVEF 50-55%
- volume overload managed by HD
Hypercalcemia secondary to parathyroid adenoma and hyperparathyroidism secondary to renal dysfunction
- vit D deficiency
- on cinacalcit
- CT CAP: enlarged parathyroid
- thyroid us: parathyroid adenoma
- pamidronate x1
- surgery consulted - agreeable to perform when medically stable - 08/04
Hx CVA w L hemiparesis, dysarthria, dysphagia
- cont tube feeding
- PT/OT
- PMR consult
ESRD on MWF HD
anemia of chronic disease
- HD due 07/08
- transfused 2 unit pRBCs
Severe calcific atherosclerotic plaque in the coronary arteries on CT Chest
Right chronically impacted humeral neck fracture -imaging finding on CT chest, needs to be verified with previous records
Hyponatremia
Recent Flu
Benign Hypertension
Hyperlipidemia
Carotid artery disease s/p R CEA
BPH
Depression
Diet: tube feeding
DVT Prophylaxis: Heparin SUBQ
Code Status: limited - DNI only
Anticipated Discharge: > 48 hours
Subjective/Interval History
-
Date of Service: August 03, 2024
No acute overnight events. HD today.
Objective Data
-
Labs:
Laboratory Results
08/03/24 08/03/24
06:00 07:27
WBC Pending 11.7 H
Hgb Pending 9.4 L
Hct Pending 28.6 L
Plt Count Pending 315
Sodium Pending
Potassium Pending
Chloride Pending
Carbon Dioxide Pending
BUN Pending
Creatinine Pending
Glucose Pending
Calcium Pending
Vital Signs:
Vital Signs
Temp Pulse Resp BP Pulse Ox
97.8 F 67 18 175/83 98
08/03/24 07:48 08/03/24 07:48 08/03/24 07:48 08/03/24 07:48 08/03/24 07:48
I&O
08/02/24 08/03/24 08/04/24
06:59 06:59 06:59
Intake Total 980 / 980
Output Total 0 / 0
Balance 980 / 980 0 / 0
Review of Systems
-
History Source: Patient
Constitutional: Reports No Symptoms
Respiratory: Reports Trouble Breathing
Cardiac: Reports No Symptoms
Abdomen/GI: Reports No Symptoms
Musculoskeletal: Reports No Symptoms
Neuro: Reports No Symptoms
Physical Exam
-
General: Appears Chronically Ill and Cachectic
HEENT: Normocephalic, Atraumatic and Oxygen
Respiratory: Accessory Resp Muscle Use and Decreased Breath Sounds
Cardiac: Regular Rhythm and S1/S2
GI: Soft, Nontender, Nondistended, Normal Bowel Sounds and Peg Tube
Musculoskeletal: No Clubbing, No Cyanosis and No Edema
Skin: Warm and Dry
Neuro: Awake, Alert and Oriented
Psych: Calm
[2024-08-03] MEDS: SENSIPAR 90 MG TUBE ×2 (08:24→19:48)
[2024-08-03] MEDS: LOW STRENGTH ASPIRIN 81 MG TUBE (08:24)
[2024-08-03] MEDS: VISBIOME 1 CAP TUBE (08:25)
[2024-08-03] MEDS: ROBITUSSIN 200 MG TUBE ×4 (08:25→21:20)
[2024-08-03] MEDS: NSS (PRESERVATIVE FREE) 10 ML IV ×2 (08:26→19:48)
[2024-08-03] MEDS: HEPARIN 5000 UNITS SC ×2 (08:26→19:45)
[2024-08-03] MEDS: PROTONIX IV 40 MG IV ×2 (08:26→19:47)
[2024-08-03] MEDS: WELLBUTRIN REGULAR RELEASE 150 MG TUBE ×2 (08:27→19:50)
[2024-08-03 08:46] LABS: Blood Urea Nitrogen 108 mg/dl (9-20); Calcium 12.6 mg/dl (8.4-10.2); Carbon Dioxide 26 mmol/L (22-30); Chloride 95 mmol/L (98-107); Estimated Creatinine Clearance 13 ml/min; Glucose 103 mg/dl (70-99); Magnesium 3.2 mg/dl (1.6-2.3); Potassium 4.4 mmol/L (3.5-5.1); Sodium 135 mmol/L (135-145); eGFR 13.13
[2024-08-03] MEDS: THORAZINE 10 MG TUBE (08:53)
[2024-08-03] MEDS: FLEXBUMIN 25% FOR HEMODIALYSIS 12.5 GRAMS IV ×2 (09:18→10:44)
[2024-08-03] MEDS: MANNITOL 25% 12.5 GRAMS IV ×2 (09:18→10:40)
[2024-08-03] MEDS: RETACRIT 10000 UNITS IV (09:19)
--- NOTE | 2024-08-03 09:33 | VATNOTE ---
At time of assessment, pt receiving dialysis. HDC dressing 7 days old, discussed with portable power tool repairer who will change the dressing today during dialysis treatment.
[2024-08-03] MEDS: ProAmatine 5 MG TUBE (10:02)
--- NOTE | 2024-08-03 10:04 | W.PN.NEPH.HD ---
Assessment
-
Patient seen on dialysis
Systolic blood pressure was initially 160 and then dropped to 77 systolic
UF goal titrated back to 1 kg
5 mg of midodrine p.o. provided in addition to mannitol and IV albumin
Progress Note - Hemodialysis
-
Date of Service: August 03, 2024
Duration: 30 minutes and 3 hours
Potassium Bath: 3
Calcium Bath: 2.5
Opti-Dialyzer: 160
Ultrafiltration: Other (1 kg as tolerated hemodynamic)
Blood Flow: 350
Dialysate Flow: 600
Heparin: None
EPO: 10,000
--- NOTE | 2024-08-03 11:02 | W.PN.PUL3 ---
Today's Communication / Plan
-
Patient has declined procedure due to avoidance of pain, he would rather do outpatient weekly/biweekly thoras
I spoke to daughter and ex- and they agree to avoid painful procedures
They understand his prognosis is poor but daughter does not wish for us to continue discussions on hospice despite knowledge that this is futile
He will undergo parathyroid procedure tomorrow with plan for d/c planning
[facility], I recommended obtaining pulmonary FU affiliated with [facility] to arrange thoras
Assessment
-
Patient is a 60-year-old gentleman with known history of carotid artery disease status post right CEA in the past, end-stage renal disease on hemodialysis, hypertension, hyperlipidemia, HFrEF 40-45%, CVA, who was brought from the long-term
facility for worsening shortness of breath. Patient reportedly has been feeling short of breath over the last couple of weeks which has been progressively getting worse. Reported diagnosis of Flu-has been on Tamiflu. In view of worsening
respiratory status he was transferred to the emergency room for further workup. Imaging in the emergency room showing showed near complete collapse of the left lung with large pleural effusion as well as moderate pleural effusion on the right side.
Patient also was noted to have significantly elevated troponin along with sinus bradycardia. Patient was started on broad-spectrum antibiotics, aspirin as well as heparin drip for suspected NSTEMI and was admitted to hospitalist service. In view
of large effusion, interventional radiology and pulmonary service were requested for further input. Patient had thoracentesis performed with gradual improvement. Patient subsequently had a cardiopulmonary arrest and required CPR on 06/23 and CODE
STATUS was reversed from DNR to full code. Patient was intubated for 2 days and it was felt to be related to mucous plug obstructing left main bronchus. Patient was successfully extubated on 06/25/24.
Bilateral pleural effusions left > right status post thoracentesis x 6 since 06/21/2024,
Status post intubation and mechanical ventilation-06/23/2024 through 06/25/2024
Cardiac arrest status post asystole-epi, CPR ROSC in 3 minutes
Sinus bradycardia - now normal heart rate
Lung atelectasis due to mucous plugging and pleural effusion
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
CHF with preserved EF
End-stage renal disease on hemodialysis
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
PEG placement
GERD
HTN
HLD
Hypothyroidism
Plan
Recurrent pleural effusions, s/p 6 thoracentesis this admissions.
Left sided re-accumulation mostly
Initial fluid studies transudative, lately more exudative. Suspect this is a pseudo exudative pattern noted in the setting of NSAID renal disease and hemodialysis. Cultures and cytology have stayed negative and no underlying pneumonia noted post
imaging
Unfortunately asept catheter could not be pursued due to lack of insurance authorization
Surgical decortication is not an option considering his multiple comorbidities and very poor functional status
Recommend follow-up chest x-ray on 08/03. If he has developing left-sided pleural effusion, recommend interventional radiology guided chest tube placement followed by attempted chemical pleurodesis.
Discussed with the patient and he is agreeable to proceed, per Dr Garcia
I discussed again today risk vs benefit, which may give very little benefit for great risk/pain/discomfort, he has now declined as he was unaware what the procedure would entail
Status post intubation 06/23/24 and extubated 06/25/2024
Aspiration precautions
Mucus clearing devices-he has tried vest therapy in the past without much success according to patient
Duonebs PRN
Chest x-ray 07/09/2023-small right pleural effusion, improved aeration of the left lung with some left basilar consolidation
Follow CXR occasional
CXR on 07/13 shows slight return off effusion but not significant for further therapeutic thora
Repeat CXR 08/03/24 showing return of effusion post recent thora 07/30
Interventional radiology-thoracentesis performed 07/08/2024 urgently due to significant shortness of breath -- transudative pleural effusion
Thoracentesis L 07/08/24--750 mL of yellow pleural fluid- Tot P 3.2 - [facility] 87, culture neg
s/p L thora 06/29/24 1750: Tot P 2.9 - [facility] 108, culture/cyto neg
s/p R thora 06/22/24 1100, culture/cyto neg
s/p L thora 06/21/24 1450, culture/cyto neg
s/p L thora, 07/26 and 07/30
Follow chest x-ray PRN
Can hold off further taps if patient has mild fluid and no symptoms
Prefer to remove fluid via HD if able
If this is not responding after 40+ days hospitalized, I have recommended hospice
Cultures reviewed
Sputum was cultured on 06/23/[id number] 7 days of antibiotics-suspected colonization rather than active pneumonia
Monitor off abx if no further fever/WBC count
Nephrology following-correspondence reviewed
Hemodialysis Zlvykk-Vletcplzl-Uplirx
Parathyroidectomy will likely be needed for persistent hypercalcemia-surgery evaluated-surgery once medically stable
HD planning continued with volume removal
Follow daily weights
DVT prophylaxis-on subcu heparin
Nutrition-on tube feeds
Bedside range of motion/physical therapy
Poor prognosis overall
Recommend palliative care consult--this has been discussed, patient has declined and family notes they want to respect his wishes
Could possible set up weekly thoras --I discussed this with daughter who agrees that she would like to keep things simple and non-invasive
They are planning to move him to [facility] to be near his daughter, who states she will be taking care of his arrangements, recommend finding OP pulm in that area and setting up weekly vs biweekly taps at [facility]
Discharge planning per team
Family meeting
Dr. Garcia met with patient's daughter as well as ex-. Goals of care discussions took place in the presence of palliative care nurse. Patient's family requesting medical team to discuss again with the patient regarding his CODE STATUS and
wishes in future as he had been DNR/DNI in the past but was temporarily intubated in the setting of mucous plug.
Data:
CXR 05/2024: 1. Near complete opacification of the left hemithorax which is likely secondary to a large left pleural effusion and airspace consolidation (compressive atelectasis or pneumonia).
2. Moderate ground-glass opacity in the infrahilar right lower lung which could be subsegmental atelectasis or pneumonia.
3. Right IJ hemodialysis catheter in place.
4. Chronic impacted fracture of the right humeral neck.
CT Chest 05/2024: 1. Complete endobronchial obstruction of the left mainstem bronchus containing layering secretions. SEVERE NEAR COMPLETE AIRSPACE CONSOLIDATION of the LEFT UPPER and LOWER LOBES (either atelectasis or pneumonia).
2. LARGE LEFT PLEURAL EFFUSION.
3. Moderate to large right pleural effusion.
4. Moderate to severe cardiomegaly.
5. Severe calcific atherosclerotic plaque in the coronary arteries.
6. Right IJ hemodialysis catheter in place.
7. Chronic impacted fracture of the right proximal humerus.
Total time spent today was 61 minutes for this encounter. Time includes reviewing laboratory test/imaging results, reviewing pertinent medical records, obtaining and reviewing medical history, performing an appropriate exam, ordering medications,
tests and procedures. Time also includes documentation of this encounter, coordinating patient care and communicating with other healthcare professionals. Total time does not include separately billed tests performed on this date of service.
Subjective Data
-
Date of Service:
Date of Service: August 03, 2024
Chief Complaint: Pulmonary Follow Up (Hypoxemic respiratory failure-bilateral pleural effusion) and Dyspnea Follow Up
Subjective:
Remains on low O2, SOB is about the same
On HD now
Appears deconditioned
Objective Data
Data Reviewed
Vital Signs / I&O / Oxygen:
Vital Signs
Temp Pulse Resp BP Pulse Ox
97.8 F 67 18 175/83 98
08/03/24 07:48 08/03/24 07:48 08/03/24 07:48 08/03/24 07:48 08/03/24 07:48
Intake and Output
08/02/24 08/03/24 08/04/24
06:59 06:59 06:59
Intake Total 980 / 980
Output Total 0 / 0
Balance 980 / 980 0 / 0
SaO2 [CPAP] 99
SaO2 [A/C] 99
SaO2 98
Nasal Cannula flow liters per 1
minute
Physical Exam
General: Respiratory Distress (n), Comfortable, Poor Appetite and Other (thin/deconditioned appearing)
HEENT: Normocephalic, Anicteric, Moist Mucous Membranes and Other (poor dentition/oral care)
Cardiovascular: S1-S2, Regular Rhythm and Peripheral Edema (negative)
Respiratory: Rhonchi (Predominantly on the left side) and Other (Diminished breath sounds on the left)
GI: Soft, Non Distended, Non Tender and Normal Bowel Sounds
Neurology: Awake, Alert, Oriented and Tremors (negative)
Skin: Warm, Dry, Cyanosis (n) and Jaundice (negative)
Labs/Micro/Reports
Lab Data
08/03/24 07:27
08/03/24 07:27
Microbiology
07/30/24 12:20 Pleural Fluid Body Fluid Culture - Final
No Growth After 72 Hours
07/30/24 12:20 Pleural Fluid Gram Stain - Final
--- NOTE | 2024-08-03 11:33 | CM ---
adoption manager reviewed patient's chart and patient is for possible procedure tomorrow 08/04/24, per notes there is possible chest tube placement. Plan was for skilled placement however if patient's needs continue to increase patient may need to be
referred to LTAC again.
Plan; To follow with patient progress.
[2024-08-03] MEDS: HEPARIN 3600 UNITS INTRACATH (11:54)
[2024-08-03 15:34] VITALS: BP 144/79; PULSE 68; O2SAT 100
[2024-08-03 16:05] VITALS: BP 144/79
[2024-08-03] MEDS: CRESTOR 20 MG TUBE (18:30)
[2024-08-03] MEDS: FOLVITE 2 MG TUBE (21:19)
[2024-08-03] MEDS: MELATONIN 5 MG TUBE (21:19)
[2024-08-03 23:24] VITALS: BP 124/87
[2024-08-04] VITALS (20 sets, daily range): BP systolic 133–181; BP diastolic 69–156
[2024-08-04 07:02] LABS: Hematocrit 27.7 % (39.0-52.0); Mean Corp Hgb Conc. 32.5 g/dL (33.0-37.0); Mean Corpuscular Hgb 29.3 pg (27.0-31.0); Mean Corpuscular Volume 90.2 fL (80.0-94.0); Mean Platelet Volume 8.6 fL (7.4-10.4); Platelet Count 302 10^3/uL (130-400); Red Blood Cell Count 3.07 10^6/uL (4.70-6.10); Red Cell Dist. Width 16.5 % (11.5-14.5); White Blood Cell Count 8.9 10^3/uL (4.8-10.8)
[2024-08-04 07:39] LABS: Blood Urea Nitrogen 49 mg/dl (9-20); Calcium 11.9 mg/dl (8.4-10.2); Carbon Dioxide 29 mmol/L (22-30); Chloride 97 mmol/L (98-107); Estimated Creatinine Clearance 22 ml/min; Glucose 35 mg/dl (70-99); Potassium 3.7 mmol/L (3.5-5.1); Sodium 136 mmol/L (135-145); eGFR 24.89
--- NOTE | 2024-08-04 07:41 | W.PN.HOSP.TC ---
Addendum entered and electronically signed by Benedict Villarreal MD 08/04/24 14:31:
I saw and evaluated the patient. I reviewed the resident�s note and agree with findings and plan as documented in the resident�s note.
Acute hypoxic respiratory failure, ventilator dependent respiratory failure, s/p PEA/cardiac arrest -patient had episode of mucous plugging with respiratory arrest. Patient was bradycardic at that time and likely added to the problem. Patient
require ventilator support and was able to be extubated--back on O2-- Dyspnea has improved with x6 with thoracentesis. Remains at high risk of decompensation and further respiratory problems
Hypercalcemia/parathyroid adenoma/secondary hyperparathyroidism -patient has significant hypercalcemia and likely secondary to ESRD/secondary hyperparathyroidism and parathyroid adenoma found on imaging. Parathyroid hormone close to 1000. Patient
has been maximized on Cinacalcet and also has been provided calcitonin/bisphosphonates. In light of refractory nature of hypercalcemia surgery has been consulted, patient is a candidate for minimally invasive parathyroidectomy once pulmonary status
stabilizes-- getting minimally invasive parathyroidectomy today
Recurrent pleural effusion--patient underwent right-sided thoracentesis of 1.1 L--And left-sided thoracentesis of 1450ml, 1750 ml, 750ml, 1600ml, 1150ml, 700ml-- A Pleurx catheter was planned although insurance approval did not come through-- will
need weekly thoracentesis set up, seems to recur in less than 1 week-pulmonology recommended chemcial pleurodesis and will discuss with family.
Hypoglycemia episode -patient had episodes of hypoglycemia in the morning with glucose dropping to 35. His was off of the tube feed through the night as part of surgery need today. Patient clearly malnourished and have poor store. Tube feed to be
resumed once patient out of surgery
Left mainstem bronchus obstruction, recurrent aspiration -patient have increased secretion and potential for recurrent bronchus obstruction and related complication-- pulmonary toileting--aspiration risk
Leukocytosis/hypothermia--likely aspiration pneumonitis--finished 5 days of Unasyn
New onset GI bleed on 07/27--pt does not want workup, GI said would be high risk--follow HGB--cont PPI--apprec GI--resolved
hiccups--adding PRN thorazine
NSTEMI -patient was managed conservatively and has finished few days of heparin drip therapy. Echocardiogram showing ejection fraction of 50 to 55%.
Diastolic heart failure exacerbation -patient volume status being managed by hemodialysis, patient makes some urine--recurrent pleural effusions not controlled with HD--pseudo exudative as per pulm
Hx CVA w L hemiparesis, dysarthria, dysphagia-- cont tube feeding
ESRD on MWF HD--apprec renal
anemia of chronic disease- transfused 2 unit pRBCs
Severe calcific atherosclerotic plaque in the coronary arteries on CT Chest
Right chronically impacted humeral neck fracture -imaging finding on CT chest, needs to be verified with previous records
protein calorie malnutrition--cachectic, stage 2 pressure wound--on tube feeds--feel at least moderate if not severe
sacrum stage 2 pressure injury--cont local wound care---unclear to me if POA
Hyponatremia
Essential Hypertension
Hyperlipidemia
Carotid artery disease s/p R CEA
BPH
Depression
code status--DNI--wants chest compressions
Case discussed with pulmonology
Original Note:
Today's Communication/Plan
-
- parathyroidectomy today
- HD tw
Assessment / Plan
Assessment / Plan
L mainstem bronchus obstruction secondary to secretions
B/l pleural effusions likely secondary to underlying CHF and ESRD
SOB
- aspiration risk
- hx CVA/peg tube on tube feeding
- CPT
- resp cx: Pseudomonas, completed 7 days abx
- cont flutter valve
- L thoracentesis 06/21 #1: 1450 cc straw-colored pleural fluid
- R thoracentesis 06/22 #1: 1100 cc of clear yellow pleural fluid.
- L thoracentesis 06/29 #2: 1750 cc of serosanguineous pleural fluid.
- L thoracentesis 07/08 #3: 750 cc of clear yellow pleural fluid.
- L thoracentesis 07/19 #4: 1600 cc of straw colored pleural fluid
- L thoracentesis 07/26 #5: 1150 cc yellow pleural fluid evacuated
- L thoracentesis 07/30 #6: 700 cc of serosanguineous pleural fluid - - exudative
- appreciate pulm input
- CXR in AM
NSTEMI
CHF
- trop max 10.7
- was on a heparin drip
- Echo: LVEF 50-55%
- ASA, statin
- hold BB due to recent severe bradycardia
Acute on chronic HFpEF
- proBNP elevated
- echo: LVEF 50-55%
- volume overload managed by HD
Hypercalcemia secondary to parathyroid adenoma and hyperparathyroidism secondary to renal dysfunction
- vit D deficiency
- on cinacalcit
- CT CAP: enlarged parathyroid
- thyroid us: parathyroid adenoma
- pamidronate x1
- surgery consulted - agreeable to perform when medically stable - 08/04
Hx CVA w L hemiparesis, dysarthria, dysphagia
- cont tube feeding
- PT/OT
- PMR consult
ESRD on MWF HD
anemia of chronic disease
- HD due 07/08
- transfused 2 unit pRBCs
Severe calcific atherosclerotic plaque in the coronary arteries on CT Chest
Right chronically impacted humeral neck fracture -imaging finding on CT chest, needs to be verified with previous records
Hyponatremia
Recent Flu
Benign Hypertension
Hyperlipidemia
Carotid artery disease s/p R CEA
BPH
Depression
Diet: tube feeding
DVT Prophylaxis: Heparin SUBQ
Code Status: limited - DNI only
Anticipated Discharge: > 48 hours
Subjective/Interval History
-
Date of Service: August 04, 2024
Pt hypoglycemic. D5NS started. Parathyroidectomy today. Pt's family wishes to no longer hear about hospice.
Objective Data
-
Labs:
Laboratory Results
08/04/24
06:34
WBC 8.9
Hgb 9.0 L
Hct 27.7 L
Plt Count 302
Sodium 136
Potassium 3.7
Chloride 97 L
Carbon Dioxide 29
BUN 49 H
Creatinine 2.7 H
Glucose 35 L*
Calcium 11.9 H
Vital Signs:
Vital Signs
Temp Pulse Resp BP Pulse Ox
97.0 F 83 18 124/87 96
08/03/24 23:24 08/03/24 23:24 08/03/24 23:24 08/03/24 23:24 08/03/24 23:24
I&O
08/03/24 08/04/24 08/05/24
06:59 06:59 06:59
Intake Total 0 / 0
Output Total 0 / 0
Balance 0 / 0 0 / 0
Review of Systems
-
History Source: Patient
Constitutional: Reports No Symptoms
Respiratory: Reports Trouble Breathing
Cardiac: Reports No Symptoms
Abdomen/GI: Reports No Symptoms
Neuro: Reports No Symptoms
Physical Exam
-
General: Appears Chronically Ill and Cachectic
HEENT: Normocephalic, Atraumatic and Oxygen
Respiratory: Accessory Resp Muscle Use
Cardiac: Regular Rhythm and S1/S2
GI: Soft, Nontender, Nondistended, Normal Bowel Sounds and Peg Tube
Musculoskeletal: No Clubbing, No Cyanosis and No Edema
Skin: Warm and Dry
Neuro: Awake, Alert and Oriented
Psych: Calm
[2024-08-04] MEDS: DEXTROSE 50% SYRINGE 25 GRAMS IV (08:05)
[2024-08-04] MEDS: PROTONIX IV 40 MG IV ×2 (08:12→21:23)
[2024-08-04] MEDS: D5/0.9% SODIUM CHLORIDE 1000 IV (08:12)
[2024-08-04] MEDS: NSS (PRESERVATIVE FREE) 10 ML IV ×2 (08:12→21:24)
[2024-08-04] MEDS: WELLBUTRIN REGULAR RELEASE 150 MG TUBE ×2 (08:13→22:25)
[2024-08-04] MEDS: ROBITUSSIN 200 MG TUBE ×3 (08:13→21:24)
[2024-08-04] MEDS: LOW STRENGTH ASPIRIN 81 MG TUBE (08:13)
[2024-08-04] MEDS: HEPARIN 5000 UNITS SC ×2 (08:13→21:23)
[2024-08-04] MEDS: VISBIOME 1 CAP TUBE (08:13)
[2024-08-04] MEDS: SENSIPAR 90 MG TUBE ×2 (08:13→22:26)
[2024-08-04 08:21] LABS: Glucose - Point of Care 139 mg/dl (70-99)
--- NOTE | 2024-08-04 09:18 | W.PN.PUL3 ---
Today's Communication / Plan
-
Parathyroid sx planning today
Outpatient weekly thoras to be arranged, instructed family to seek pulmonary provider in [place] area
Daughter aware and wants to be his log roper at her home
D/c planning per team after observation from procedure today
Assessment
-
Patient is a 60-year-old gentleman with known history of carotid artery disease status post right CEA in the past, end-stage renal disease on hemodialysis, hypertension, hyperlipidemia, HFrEF 40-45%, CVA, who was brought from the assisted
facility for worsening shortness of breath. Patient reportedly has been feeling short of breath over the last couple of weeks which has been progressively getting worse. Reported diagnosis of Flu-has been on Tamiflu. In view of worsening
respiratory status he was transferred to the emergency room for further workup. Imaging in the emergency room showing showed near complete collapse of the left lung with large pleural effusion as well as moderate pleural effusion on the right side.
Patient also was noted to have significantly elevated troponin along with sinus bradycardia. Patient was started on broad-spectrum antibiotics, aspirin as well as heparin drip for suspected NSTEMI and was admitted to hospitalist service. In view
of large effusion, interventional radiology and pulmonary service were requested for further input. Patient had thoracentesis performed with gradual improvement. Patient subsequently had a cardiopulmonary arrest and required CPR on 06/23 and CODE
STATUS was reversed from DNR to full code. Patient was intubated for 2 days and it was felt to be related to mucous plug obstructing left main bronchus. Patient was successfully extubated on 06/25/24.
Bilateral pleural effusions left > right status post thoracentesis x 6 since 06/21/2024,
Status post intubation and mechanical ventilation-06/23/2024 through 06/25/2024
Cardiac arrest status post asystole-epi, CPR ROSC in 3 minutes
Sinus bradycardia - now normal heart rate
Lung atelectasis due to mucous plugging and pleural effusion
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
CHF with preserved EF
End-stage renal disease on hemodialysis
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
PEG placement
GERD
HTN
HLD
Hypothyroidism
Plan
Recurrent pleural effusions, s/p 6 thoracentesis this admissions.
Left sided re-accumulation mostly
Initial fluid studies transudative, lately more exudative. Suspect this is a pseudo exudative pattern noted in the setting of NSAID renal disease and hemodialysis. Cultures and cytology have stayed negative and no underlying pneumonia noted post
imaging
Unfortunately asept catheter could not be pursued due to lack of insurance authorization
Surgical decortication is not an option considering his multiple comorbidities and very poor functional status
Recommend follow-up chest x-ray on 08/03. If he has developing left-sided pleural effusion, recommend interventional radiology guided chest tube placement followed by attempted chemical pleurodesis.
Discussed with the patient and he is agreeable to proceed, per Dr Garcia
I discussed again today risk vs benefit, which may give very little benefit for great risk/pain/discomfort, he has now declined as he was unaware what the procedure would entail
Status post intubation 06/23/24 and extubated 06/25/2024
Aspiration precautions
Mucus clearing devices-he has tried vest therapy in the past without much success according to patient
Duonebs PRN
Chest x-ray 07/09/2023-small right pleural effusion, improved aeration of the left lung with some left basilar consolidation
Follow CXR occasional
CXR on 07/13 shows slight return off effusion but not significant for further therapeutic thora
Repeat CXR 08/03/24 showing return of effusion post recent thora 07/30
Interventional radiology-thoracentesis performed 07/08/2024 urgently due to significant shortness of breath -- transudative pleural effusion
Thoracentesis L 07/08/24--750 mL of yellow pleural fluid- Tot P 3.2 - [facility] 87, culture neg
s/p L thora 06/29/24 1750: Tot P 2.9 - [facility] 108, culture/cyto neg
s/p R thora 06/22/24 1100, culture/cyto neg
s/p L thora 06/21/24 1450, culture/cyto neg
s/p L thora, 07/26 and 07/30
Follow chest x-ray PRN
Can hold off further taps if patient has mild fluid and no symptoms
Prefer to remove fluid via HD if able
If this is not responding after 40+ days hospitalized, I have recommended hospice
Cultures reviewed
Sputum was cultured on 06/23/20248591-[id number]-iaawqsfkn 7 days of antibiotics-suspected colonization rather than active pneumonia
Monitor off abx if no further fever/WBC count
Nephrology following-correspondence reviewed
Hemodialysis Kqxhzm-Aowqjwrfh-[id number]
Parathyroidectomy will likely be needed for persistent hypercalcemia-surgery evaluated-surgery once medically stable
HD planning continued with volume removal
Follow daily weights
DVT prophylaxis-on subcu heparin
Nutrition-on tube feeds
Bedside range of motion/physical therapy
Poor prognosis overall
Recommend palliative care consult--this has been discussed, patient has declined and family notes they want to respect his wishes
Declined chest tube and chemical pleurodesis attempt
Family to set up weekly thoras --I discussed this with daughter who agrees that she would like to keep things simple and non-invasive
They are planning to move him to [facility] to be near his daughter, who states she will be taking care of his arrangements, recommend finding OP pulm in that area and setting up weekly vs biweekly taps at [facility]
Discharge planning per team
Family meeting
Dr. Garcia met with patient's daughter as well as ex-. Goals of care discussions took place in the presence of palliative care nurse. Patient's family requesting medical team to discuss again with the patient regarding his CODE STATUS and
wishes in future as he had been DNR/DNI in the past but was temporarily intubated in the setting of mucous plug.
Data:
CXR 05/2024: 1. Near complete opacification of the left hemithorax which is likely secondary to a large left pleural effusion and airspace consolidation (compressive atelectasis or pneumonia).
2. Moderate ground-glass opacity in the infrahilar right lower lung which could be subsegmental atelectasis or pneumonia.
3. Right IJ hemodialysis catheter in place.
4. Chronic impacted fracture of the right humeral neck.
CT Chest 05/2024: 1. Complete endobronchial obstruction of the left mainstem bronchus containing layering secretions. SEVERE NEAR COMPLETE AIRSPACE CONSOLIDATION of the LEFT UPPER and LOWER LOBES (either atelectasis or pneumonia).
2. LARGE LEFT PLEURAL EFFUSION.
3. Moderate to large right pleural effusion.
4. Moderate to severe cardiomegaly.
5. Severe calcific atherosclerotic plaque in the coronary arteries.
6. Right IJ hemodialysis catheter in place.
7. Chronic impacted fracture of the right proximal humerus.
Total time spent today was 51 minutes for this encounter. Time includes reviewing laboratory test/imaging results, reviewing pertinent medical records, obtaining and reviewing medical history, performing an appropriate exam, ordering medications,
tests and procedures. Time also includes documentation of this encounter, coordinating patient care and communicating with other healthcare professionals. Total time does not include separately billed tests performed on this date of service.
Subjective Data
-
Date of Service:
Date of Service: August 04, 2024
Chief Complaint: Pulmonary Follow Up (Hypoxemic respiratory failure-bilateral pleural effusion) and Dyspnea Follow Up
Subjective:
No events ON, stable on RA
No new complaints
OR planning today
Objective Data
Data Reviewed
Vital Signs / I&O / Oxygen:
Vital Signs
Temp Pulse Resp BP Pulse Ox
95.7 F L 66 20 149/92 100
08/04/24 08:15 08/04/24 08:15 08/04/24 08:15 08/04/24 08:15 08/04/24 08:15
Intake and Output
08/03/24 08/04/24 08/05/24
06:59 06:59 06:59
Intake Total 0 / 0
Output Total 0 / 0
Balance 0 / 0 0 / 0
SaO2 [CPAP] 99
SaO2 [A/C] 99
SaO2 100
Nasal Cannula flow liters per 2
minute
Physical Exam
General: Respiratory Distress (n), Comfortable, Poor Appetite and Other (thin/deconditioned appearing)
HEENT: Normocephalic, Anicteric, Moist Mucous Membranes and Other (poor dentition/oral care)
Cardiovascular: S1-S2, Regular Rhythm and Peripheral Edema (negative)
Respiratory: Rhonchi (Predominantly on the left side) and Other (Diminished breath sounds on the left)
GI: Soft, Non Distended, Non Tender and Normal Bowel Sounds
Neurology: Awake, Alert, Oriented and Tremors (negative)
Skin: Warm, Dry, Cyanosis (n) and Jaundice (negative)
Labs/Micro/Reports
Lab Data
08/04/24 06:34
08/04/24 06:34
Microbiology
07/19/24 13:22 Pleural Fluid Fungal Culture - Preliminary
Culture in progress.
Positive cultures are reported as soon as detected.
Final report to follow in four to five weeks.
06/29/24 08:24 Pleural Fluid Fungal Culture - Final
Culture negative for fungus.
07/30/24 12:20 Pleural Fluid Body Fluid Culture - Final
No Growth After 72 Hours
07/30/24 12:20 Pleural Fluid Gram Stain - Final
--- NOTE | 2024-08-04 10:01 | PTCARENOTE ---
pt wakes to name. peg tube clamped tube feeding on hold for OR. morning glucose 35 MD made aware. d50% and ivf ordered. repeat accucheck 139.
[2024-08-04 10:58] LABS: Glucose - Point of Care 88 mg/dl (70-99)
--- NOTE | 2024-08-04 11:51 | PTCARENOTE ---
report given to OR
[2024-08-04 14:04] LABS: Turbo PTH 724.1 pg/ml (13.6-85.8)
[2024-08-04 14:44] LABS: Turbo PTH 241 pg/ml (13.6-85.8)
--- NOTE | 2024-08-04 14:51 | CM ---
OR today, possible transfer to [address] [place] [address], needs follow up.
Plan; Placement.
[2024-08-04 15:23] LABS: Glucose - Point of Care 65 mg/dl (70-99)
--- NOTE | 2024-08-04 15:24 | OR.RPT ---
Operative Report
Operative Report
Date of Operation: August 04, 2024
Preoperative Diagnosis: Hyperparathyroidism - E210
Postoperative Diagnosis: Same
Surgeon: Umer Stroud M.D.
Operation: Minimally Invasive Left Parathyroidectomy - 75342
Anesthesia: GET
Estimated Blood Loss: 2 cc
Drains: None
Specimen: A large left neck nodule, rule out parathyroid adenoma
Complications: None
Procedure:
The patient was taken to the operating room and placed in the usual supine position. After adequate general endotracheal anesthesia was established, the patient's neck was extended, prepped, and draped in the typical sterile fashion. A 4 cm
transcervical incision was made two fingerbreadths above the sternal notch. The skin incision was made with a #15 blade, which was then taken through the skin into the subcutaneous tissue. The underlying platysma muscle was divided, and subplatysmal
flaps were created superiorly to the thyroid cartilage and inferiorly to the sternal notch. Strap muscles were identified and at the midline.
The attention was turned to the left side of the neck. The left thyroid lobe was mobilized medially. During this process, the left recurrent laryngeal nerve was identified and preserved throughout the surgery. A large left neck mass was identified
behind the left thyroid lobe, which was noted to be hard and adherent to the surrounding structures. The mass was carefully dissected, removed, and sent to the pathology department, which revealed a hypercellular parathyroid gland weighing more than
7700 mg. The intraoperative PTH level decreased from 724.1 to 241.
After obtaining adequate hemostasis, the strap muscles were reapproximated with #3-0 Vicryl in a running fashion. The platysma muscle was reapproximated with #3-0 Vicryl in an interrupted fashion, and the skin was approximated with #4-0 Monocryl in
a running subcuticular fashion. The Steri-Strips and sterile dressings were placed. The patient tolerated the procedure well. The final counts of needles and sponges were correct. The patient was extubated and transferred to the PACU.
[2024-08-04] MEDS: DEXTROSE 50% SYRINGE 12.5 GRAMS IV (15:36)
--- NOTE | 2024-08-04 15:46 | W.PN.NEPH.PH ---
Today's Communication / Plan
-
Dialysis tomorrow
Assessment/Plan
-
Impression:
ESRD MWF
Hypoxia/left lung atelectasis versus pneumonia
Large left pleural effusion s/p thoracentesis 06/21
CHF
Anemia
Hypertension hx
Hyponatremia
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
Hyperphosphatemia
PEG
Non-ST elevation PA
History of stroke with subsequent left hemiparesis dysarthria and dysphagia
Tunneled right HD IJ catheter
Chronic impacted right proximal humerus fracture
hypercalcemia
Plan:
continue very high dosing of sensipar which fails to control the calcium. Needs PTX, plan for 08/04
now with exudative pleural effusions
these cannot be controlled with HD
HD tomorrow
-
-
Date of Service: August 04, 2024
CC / HPI / ROS
-
Chief Complaint:
ESRD
History of Present Illness:
hemodynamically stable
Hemodialysis on Saturday schedule
tolerated HD yesterday
calcium remains high >12 despite high dosing of sensipar,
requiring weekly thoracentesis
Review of Systems:
No chest pain
No fever
mild sob still, on supplemental O2
Labs
-
Labs:
WBC 8.9 10^3/uL (4.8-10.8) 08/04/24 06:34
RBC 3.07 10^6/uL (4.70-6.10) L 08/04/24 06:34
Hgb 9.0 g/dL (13.0-18.0) L 08/04/24 06:34
Hct 27.7 % (39.0-52.0) L 08/04/24 06:34
Plt Count 302 10^3/uL (130-400) 08/04/24 06:34
Sodium 136 mmol/L (135-145) 08/04/24 06:34
Potassium 3.7 mmol/L (3.5-5.1) 08/04/24 06:34
Chloride 97 mmol/L (98-107) L 08/04/24 06:34
Carbon Dioxide 29 mmol/L (22-30) 08/04/24 06:34
BUN 49 mg/dl (9-20) H 08/04/24 06:34
Creatinine 2.7 mg/dL (0.7-1.3) H 08/04/24 06:34
eGFR 24.89 08/04/24 06:34
Glucose 35 mg/dl (70-99) L* 08/04/24 06:34
Calcium 11.9 mg/dl (8.4-10.2) H 08/04/24 06:34
Phosphorus 7.0 mg/dl (2.5-4.5) H 07/29/24 08:07
Pdw-Q-Piwctfvgwth Pept > 72687 pg/ml 06/20/24 18:13
Albumin Cancelled 08/02/24 06:00
Physical Exam
-
Vital Signs:
Vital Signs
Temp Pulse Resp BP Pulse Ox
95.7 F L 64 20 150/90 100
08/04/24 08:15 08/04/24 15:15 08/04/24 15:15 08/04/24 15:15 08/04/24 15:15
Cardiovascular:: Regular rate and rhythm
Respiratory:: Bilateral: Coarse
Lung Excursion:: Normal
Abdomen:: Nontender and Soft
Bowel Sounds:: Normal
Extremity Edema:: None: Bilateral:
[2024-08-04 15:57] LABS: Glucose - Point of Care 120 mg/dl (70-99)
[2024-08-04] MEDS: APRESOLINE 10 MG IV (17:16)
[2024-08-04] MEDS: ROBITUSSIN TUBE (18:14)
--- NOTE | 2024-08-04 18:14 | PTCARENOTE ---
Patient transferred to [address] [place] [address] post parathyroidectomy.The patient denies any pain.Vital signs are stable.The anterior neck dressing is with moderate drainage.The patient is in his bed with the call pérez in reach.
[2024-08-04] MEDS: ROXICODONE 5 MG TUBE (18:38)
[2024-08-04] MEDS: CRESTOR 20 MG TUBE (18:39)
[2024-08-04] MEDS: D5/0.9% SODIUM CHLORIDE IV (19:25)
[2024-08-04] MEDS: MELATONIN 5 MG TUBE (21:23)
[2024-08-04] MEDS: FOLVITE 2 MG TUBE (21:23)
[2024-08-04] MEDS: MORPHINE SULFATE 0.5 MG IV (22:06)
[2024-08-04] MEDS: COZAAR 25 MG TUBE (22:26)
[2024-08-04] MEDS: TRANEXAMIC ACID 100 IV (22:27)
--- NOTE | 2024-08-04 23:02 | PTCARENOTE ---
2129 pt POD #0, dsg on neck noted to have increase in bleeding with pooling noted. Pt also c/o pain Lt lateral posterior neck, with +1 swelling noted to area. VS 146/82-78-24-97.8, 96% 2L. WORKPLACE RELATIONS ADVISER notifed and in to see pt. Dr Owusu contacted at 2144,
picture of site sent via TT. Per Dr Owusu, change dsg, TXA ordered and keep pt on O2. Small area noted at incision site to be draining small amt of bloody drng. Pressure dsg with gauze applied and secured with tegaderm. WORKPLACE RELATIONS ADVISER remained at bs while dsg
changed
[2024-08-04 23:31] LABS: Glucose - Point of Care 112 mg/dl (70-99)
[2024-08-05] VITALS (7 sets, daily range): BP systolic 120–156; BP diastolic 70–86; BMI 19.5
[2024-08-05 07:42] LABS: Glucose - Point of Care 94 mg/dl (70-99)
--- NOTE | 2024-08-05 08:12 | W.PN.HOSP.TC ---
Today's Communication/Plan
-
- HD today
- DC planning
Assessment / Plan
Assessment / Plan
L mainstem bronchus obstruction secondary to secretions
B/l pleural effusions likely secondary to underlying CHF and ESRD
SOB
- aspiration risk
- hx CVA/peg tube on tube feeding
- CPT
- resp cx: Pseudomonas, completed 7 days abx
- cont flutter valve
- L thoracentesis 06/21 #1: 1450 cc straw-colored pleural fluid
- R thoracentesis 06/22 #1: 1100 cc of clear yellow pleural fluid.
- L thoracentesis 06/29 #2: 1750 cc of serosanguineous pleural fluid.
- L thoracentesis 07/08 #3: 750 cc of clear yellow pleural fluid.
- L thoracentesis 07/19 #4: 1600 cc of straw colored pleural fluid
- L thoracentesis 07/26 #5: 1150 cc yellow pleural fluid evacuated
- L thoracentesis 07/30 #6: 700 cc of serosanguineous pleural fluid - - exudative
- appreciate pulm input
- CXR in AM
Episode of hypoglycemia
- from being NPO for surgery
- D50 ampule, D5NS
NSTEMI
CHF
- trop max 10.7
- was on a heparin drip
- Echo: LVEF 50-55%
- ASA, statin
- hold BB due to recent severe bradycardia
Acute on chronic HFpEF
- proBNP elevated
- echo: LVEF 50-55%
- volume overload managed by HD
Hypercalcemia secondary to parathyroid adenoma s/p parathyroidectomy 08/04 and hyperparathyroidism secondary to renal dysfunction
- vit D deficiency
- cinacalcit - stopped s/p surgery
- CT CAP: enlarged parathyroid
- thyroid us: parathyroid adenoma
- pamidronate x1
- surgery consulted - stable for dc once medically cleared
Hx CVA w L hemiparesis, dysarthria, dysphagia
- cont tube feeding
- PT/OT
- PMR consult
ESRD on MWF HD
anemia of chronic disease
- HD due 07/08
- transfused 2 unit pRBCs
Severe calcific atherosclerotic plaque in the coronary arteries on CT Chest
Right chronically impacted humeral neck fracture -imaging finding on CT chest, needs to be verified with previous records
Hyponatremia
Recent Flu
Benign Hypertension
Hyperlipidemia
Carotid artery disease s/p R CEA
BPH
Depression
Diet: tube feeding
DVT Prophylaxis: Heparin SUBQ
Code Status: limited - DNI only
Anticipated Discharge: 24 - 48 hours
Subjective/Interval History
-
Date of Service: August 05, 2024
Overnight, dressing on neck noted to have increased bleeding w pooling. Dressing changed, TXA ordered. HD today.
Objective Data
-
Labs:
Laboratory Results
08/05/24 08/05/24
06:00 08:11
WBC Pending
Hgb Pending Pending
Hct Pending Pending
Plt Count Pending
Sodium Pending Pending
Potassium Pending Pending
Chloride Pending Pending
Carbon Dioxide Pending Pending
BUN Pending
Creatinine Pending
Glucose Pending
Calcium Pending
Vital Signs:
Vital Signs
Temp Pulse Resp BP Pulse Ox
97.8 F 70 18 146/80 99
08/05/24 07:35 08/05/24 07:35 08/05/24 07:35 08/05/24 07:35 08/05/24 07:35
I&O
08/04/24 08/05/24 08/06/24
06:59 06:59 06:59
Intake Total 0 / 0 110 / 110
Balance 0 / 0 110 / 110
Review of Systems
-
History Source: Patient
Constitutional: Reports No Symptoms
Respiratory: Reports Trouble Breathing
Cardiac: Reports No Symptoms
Abdomen/GI: Reports No Symptoms
Neuro: Reports No Symptoms
Physical Exam
-
General: Appears Chronically Ill and Cachectic
HEENT: Normocephalic and Atraumatic
Respiratory: Accessory Resp Muscle Use
Cardiac: Regular Rhythm and S1/S2
GI: Soft, Nontender, Nondistended, Normal Bowel Sounds and Peg Tube
Musculoskeletal: No Clubbing, No Cyanosis and No Edema
Skin: Warm and Dry
Neuro: Awake, Alert and Oriented
Psych: Calm
[2024-08-05 08:51] LABS: Hematocrit 24.4 % (39.0-52.0); Hemoglobin 7.9 g/dL (13.0-18.0); Mean Corp Hgb Conc. 32.4 g/dL (33.0-37.0); Mean Corpuscular Hgb 29.7 pg (27.0-31.0); Mean Corpuscular Volume 91.7 fL (80.0-94.0); Mean Platelet Volume 8.9 fL (7.4-10.4); Platelet Count 288 10^3/uL (130-400); Red Blood Cell Count 2.66 10^6/uL (4.70-6.10); Red Cell Dist. Width 16.7 % (11.5-14.5); White Blood Cell Count 9.2 10^3/uL (4.8-10.8)
--- NOTE | 2024-08-05 09:05 | PTOTSP ---
Reviewed chart and noted pt went to OR yesterday for parathyroidectomy. Will need new orders for PT and OT when stable to resume activity. Pt is currently being dialyzed and therefore unavailable for PT/OT at this time.
[2024-08-05] MEDS: MORPHINE SULFATE 0.5 MG IV (09:28)
[2024-08-05 09:49] LABS: Blood Urea Nitrogen 69 mg/dl (9-20); Calcium 11.4 mg/dl (8.4-10.2); Carbon Dioxide 26 mmol/L (22-30); Chloride 99 mmol/L (98-107); Estimated Creatinine Clearance 16 ml/min; Glucose 90 mg/dl (70-99); Potassium 4.1 mmol/L (3.5-5.1); Sodium 134 mmol/L (135-145); eGFR 17.63
[2024-08-05] MEDS: RETACRIT 10000 UNITS IV (10:02)
--- NOTE | 2024-08-05 10:27 | W.PN.NEPH.HD ---
Assessment
-
Seen on HD. no complaints. VSS, access ok
hold sensipar
follow Calcium
Progress Note - Hemodialysis
-
Date of Service: August 05, 2024
Duration: 30 minutes and 3 hours
Potassium Bath: 3
Calcium Bath: 2.5
Opti-Dialyzer: 160
Ultrafiltration: Other (1.5kg)
Blood Flow: 400
Dialysate Flow: 600
Heparin: 0
EPO: 64100 units
[2024-08-05] MEDS: SENSIPAR TUBE (10:36)
--- NOTE | 2024-08-05 10:55 | PTCARENOTE ---
Pt with sanguineous drainage on neck dressing. Pt has mild edema on left side of neck. Dressing reinforcement with abd pad. Dr. Stroud notified. Pt vomit yellow emesis x1 during HD. Dr. Villarreal notified. Care ongoing.
--- NOTE | 2024-08-05 11:05 | CM ---
CM following re: discharge planning.
Reviewed pt's chart, met with pt during HD treatment session and spoke to pt's daughter Tawnya to discuss a detailed discharge plan.
Pt is POD#1 s/p parathyroid surgery, HD today, continue supportive care.
Pt is aware he will need to go to a SNF for a short term rehab. Pt expressed his desire to go to a rehab facility with further plan/wishes to return back to his living arrangement independently in a trailer with outpatient HD treatment.
CM spoke to pt's daughter Tawnya and she confirmed that her father will need to be placed to a SNF closer to [facility] for a short term and a halfway care. Per daughter, pt will not be able to return back to his place and she will not be able
to care for him at her house. Pt's daughter requested following SHFs with HD treatment onsite: [facility], [facility] and [facility]. Pt's daughter is aware that [facility] did not have a bed and daughter asked to fax a referral
anyway. A referral to above SNFs made. Awaiting for determination.
Pt's daughter is aware that [facility] in [place] offered a bed and they requested to set up outpatient HD treatment at closer to [facility] HD treatment center. CM spoke to [facility] director global [place] [phone]
and he requested updated clinical for a review to make a final decision. Updated clinical faxed to [facility].
CM discussed with pt's daughter [facility] with HD treatment onsite and pt's daughter strongly rejected it due to very poor review and reputation.
D/C plan: preferred SNF for a short term rehab and a halfway care.
CM will follow with discharge plan updates as hospitalization progresses
--- NOTE | 2024-08-05 11:11 | W.PN.PUL3 ---
Today's Communication / Plan
-
Underwent procedure 08/04, tolerated well, no events
Remains stable, no new complaints
Can arrange weekly or biweekly thoras as OP per family request
HD planning continued per renal team
No further recs offered at this time, hopeful discharge planning per team
We will sign off at this time, please call with questions
Assessment
-
Patient is a 60-year-old gentleman with known history of carotid artery disease status post right CEA in the past, end-stage renal disease on hemodialysis, hypertension, hyperlipidemia, HFrEF 40-45%, CVA, who was brought from the [facility]
facility for worsening shortness of breath. Patient reportedly has been feeling short of breath over the last couple of weeks which has been progressively getting worse. Reported diagnosis of Flu-has been on Tamiflu. In view of worsening
respiratory status he was transferred to the emergency room for further workup. Imaging in the emergency room showing showed near complete collapse of the left lung with large pleural effusion as well as moderate pleural effusion on the right side.
Patient also was noted to have significantly elevated troponin along with sinus bradycardia. Patient was started on broad-spectrum antibiotics, aspirin as well as heparin drip for suspected NSTEMI and was admitted to hospitalist service. In view
of large effusion, interventional radiology and pulmonary service were requested for further input. Patient had thoracentesis performed with gradual improvement. Patient subsequently had a cardiopulmonary arrest and required CPR on 06/23 and CODE
STATUS was reversed from DNR to full code. Patient was intubated for 2 days and it was felt to be related to mucous plug obstructing left main bronchus. Patient was successfully extubated on 06/25/24.
Bilateral pleural effusions left > right status post thoracentesis x 6 since 06/21/2024,
Status post intubation and mechanical ventilation-06/23/2024 through 06/25/2024
Cardiac arrest status post asystole-epi, CPR ROSC in 3 minutes
Sinus bradycardia - now normal heart rate
Lung atelectasis due to mucous plugging and pleural effusion
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
CHF with preserved EF
End-stage renal disease on hemodialysis
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
PEG placement
GERD
HTN
HLD
Hypothyroidism
Plan
Recurrent pleural effusions, s/p 6 thoracentesis this admissions.
Left sided re-accumulation mostly
Initial fluid studies transudative, lately more exudative. Suspect this is a pseudo exudative pattern noted in the setting of NSAID renal disease and hemodialysis. Cultures and cytology have stayed negative and no underlying pneumonia noted post
imaging
Unfortunately asept catheter could not be pursued due to lack of insurance authorization
Surgical decortication is not an option considering his multiple comorbidities and very poor functional status
Recommend follow-up chest x-ray on 08/03. If he has developing left-sided pleural effusion, recommend interventional radiology guided chest tube placement followed by attempted chemical pleurodesis.
Discussed with the patient and he is agreeable to proceed, per Dr Garcia
I discussed again today risk vs benefit, which may give very little benefit for great risk/pain/discomfort, he has now declined as he was unaware what the procedure would entail
Status post intubation 06/23/24 and extubated 06/25/2024
Aspiration precautions
Mucus clearing devices-he has tried vest therapy in the past without much success according to patient
Duonebs PRN
Chest x-ray 07/09/2023-small right pleural effusion, improved aeration of the left lung with some left basilar consolidation
Follow CXR occasional
CXR on 07/13 shows slight return off effusion but not significant for further therapeutic thora
Repeat CXR 08/03/24 showing return of effusion post recent thora 07/30
Interventional radiology-thoracentesis performed 07/08/2024 urgently due to significant shortness of breath -- transudative pleural effusion
Thoracentesis L 07/08/24--750 mL of yellow pleural fluid- Tot P 3.2 - [facility] 87, culture neg
s/p L thora 06/29/24 1750: Tot P 2.9 - [facility] 108, culture/cyto neg
s/p R thora 06/22/24 1100, culture/cyto neg
s/p L thora 06/21/24 1450, culture/cyto neg
s/p L thora, 07/26 and 07/30
Follow chest x-ray PRN
Can hold off further taps if patient has mild fluid and no symptoms
Prefer to remove fluid via HD if able
If this is not responding after 40+ days hospitalized, I have recommended hospice
Cultures reviewed
Sputum was cultured on 06/23/20241992-Niaivpqftmc-[id number] 7 days of antibiotics-suspected colonization rather than active pneumonia
Monitor off abx if no further fever/WBC count
Nephrology following-correspondence reviewed
Hemodialysis [facility]
Parathyroidectomy will likely be needed for persistent hypercalcemia-surgery evaluated-surgery once medically stable
HD planning continued with volume removal
Follow daily weights
DVT prophylaxis-on subcu heparin
Nutrition-on tube feeds
Bedside range of motion/physical therapy
Poor prognosis overall
Recommend palliative care consult--this has been discussed, patient has declined and family notes they want to respect his wishes
Declined chest tube and chemical pleurodesis attempt
Family to set up weekly thoras --I discussed this with daughter who agrees that she would like to keep things simple and non-invasive
They are planning to move him to [facility] to be near his daughter, who states she will be taking care of his arrangements, recommend finding OP pulm in that area and setting up weekly vs biweekly taps at [facility]
Discharge planning per team
Family meeting
Dr. Garcia met with patient's daughter as well as ex-. Goals of care discussions took place in the presence of palliative care nurse. Patient's family requesting medical team to discuss again with the patient regarding his CODE STATUS and
wishes in future as he had been DNR/DNI in the past but was temporarily intubated in the setting of mucous plug.
Data:
CXR 05/2024: 1. Near complete opacification of the left hemithorax which is likely secondary to a large left pleural effusion and airspace consolidation (compressive atelectasis or pneumonia).
2. Moderate ground-glass opacity in the infrahilar right lower lung which could be subsegmental atelectasis or pneumonia.
3. Right IJ hemodialysis catheter in place.
4. Chronic impacted fracture of the right humeral neck.
CT Chest 05/2024: 1. Complete endobronchial obstruction of the left mainstem bronchus containing layering secretions. SEVERE NEAR COMPLETE AIRSPACE CONSOLIDATION of the LEFT UPPER and LOWER LOBES (either atelectasis or pneumonia).
2. LARGE LEFT PLEURAL EFFUSION.
3. Moderate to large right pleural effusion.
4. Moderate to severe cardiomegaly.
5. Severe calcific atherosclerotic plaque in the coronary arteries.
6. Right IJ hemodialysis catheter in place.
7. Chronic impacted fracture of the right proximal humerus.
Total time spent today was 41 minutes for this encounter. Time includes reviewing laboratory test/imaging results, reviewing pertinent medical records, obtaining and reviewing medical history, performing an appropriate exam, ordering medications,
tests and procedures. Time also includes documentation of this encounter, coordinating patient care and communicating with other healthcare professionals. Total time does not include separately billed tests performed on this date of service.
Subjective Data
-
Date of Service:
Date of Service: August 05, 2024
Chief Complaint: Pulmonary Follow Up (Hypoxemic respiratory failure-bilateral pleural effusion) and Dyspnea Follow Up
Subjective:
s/p procedure, tolerated well
No events, remains stable
No new complaints
Objective Data
Data Reviewed
Vital Signs / I&O / Oxygen:
Vital Signs
Temp Pulse Resp BP Pulse Ox
97.8 F 72 18 148/72 99
08/05/24 07:35 08/05/24 09:27 08/05/24 07:35 08/05/24 09:27 08/05/24 07:35
Intake and Output
06/10/25 06/11/25 06/12/25
06:59 06:59 06:59
Intake Total 0 / 0 110 / 110
Balance 0 / 0 110 / 110
SaO2 [CPAP] 99
SaO2 [A/C] 99
SaO2 99
Nasal Cannula flow liters per 1
minute
Physical Exam
General: Respiratory Distress (n), Comfortable, Poor Appetite and Other (thin/deconditioned appearing)
HEENT: Normocephalic, Anicteric, Moist Mucous Membranes and Other (poor dentition/oral care)
Cardiovascular: S1-S2, Regular Rhythm and Peripheral Edema (negative)
Respiratory: Clear and Other (Diminished breath sounds on the left)
GI: Soft, Non Distended, Non Tender and Normal Bowel Sounds
Neurology: Awake, Alert, Oriented and Tremors (negative)
Skin: Warm, Dry, Cyanosis (n) and Jaundice (negative)
Labs/Micro/Reports
Lab Data
08/05/24 08:37
08/05/24 08:37
Microbiology
07/19/24 13:22 Pleural Fluid Fungal Culture - Preliminary
Culture in progress.
Positive cultures are reported as soon as detected.
Final report to follow in four to five weeks.
06/29/24 08:24 Pleural Fluid Fungal Culture - Final
Culture negative for fungus.
07/30/24 12:20 Pleural Fluid Body Fluid Culture - Final
No Growth After 72 Hours
07/30/24 12:20 Pleural Fluid Gram Stain - Final
[2024-08-05] MEDS: HEPARIN 3600 UNITS INTRACATH (11:21)
[2024-08-05 12:13] LABS: Glucose - Point of Care 75 mg/dl (70-99)
[2024-08-05] MEDS: ROBITUSSIN TUBE ×2 (12:15→12:18)
[2024-08-05] MEDS: NSS (PRESERVATIVE FREE) 10 ML IV ×2 (12:16→19:44)
[2024-08-05] MEDS: HEPARIN 5000 UNITS SC (12:16)
[2024-08-05] MEDS: PROTONIX IV 40 MG IV ×2 (12:16→19:44)
[2024-08-05] MEDS: LOW STRENGTH ASPIRIN 81 MG TUBE (12:16)
[2024-08-05] MEDS: WELLBUTRIN REGULAR RELEASE 150 MG TUBE ×2 (12:17→19:44)
[2024-08-05] MEDS: VISBIOME 1 CAP TUBE (12:17)
[2024-08-05] MEDS: ROBITUSSIN 200 MG TUBE ×3 (12:18→21:15)
[2024-08-05] MEDS: THORAZINE 10 MG TUBE (13:04)
--- NOTE | 2024-08-05 14:34 | W.PN.GENERIC ---
Assessment / Plan
-
S/p excision of a large left parathyroid adenoma (>7000 mg)
His calcium remains high this AM (11.4). Since the blood draw, he had his dialysis.
His calcium and PTH levels may settle down with time, but certainly he is at high risk of having four parathyroid gland hyperplasia given his renal failure.
Recommend observing for a few months then regroup. If his calcium and PTH levels remain high, we may have to consider full neck exploration and subtotal parathyroid.
D/w pt and his daughter.
The pt is surgically stable for DC.
Physician Progress Note
Subjective
No complaints except for a skin bleed, which was oversewed at the bedside.
Objective
Vital Signs
Temp Pulse Resp BP Pulse Ox
98.4 F 50 18 134/70 98
08/05/24 11:25 08/05/24 11:25 08/05/24 11:25 08/05/24 11:25 08/05/24 11:25
Lab Results
08/05/24 08:37
08/05/24 08:37
Incision - CDI. one skin bleeder oversewed with good hemostasis. Steristrips were applied
[2024-08-05 17:22] LABS: Glucose - Point of Care 91 mg/dl (70-99)
[2024-08-05] MEDS: CRESTOR 20 MG TUBE (17:25)
--- NOTE | 2024-08-05 19:30 | PTCARENOTE ---
Adjusted pt tube feeding to 50mL/hr. Goal of 50mL/hr. Pt tolerating well. Independently suctioning appropriately.
[2024-08-05] MEDS: HEPARIN SC (19:43)
--- NOTE | 2024-08-05 19:59 | PTCARENOTE ---
Pt refused 2000 dose of heparin. Educated pt on purpose of medication. Still refused. Will continue to monitor.
[2024-08-05] MEDS: ROXICODONE 5 MG TUBE (21:13)
[2024-08-05] MEDS: FOLVITE 2 MG TUBE (21:13)
[2024-08-05] MEDS: MELATONIN 5 MG TUBE (21:14)
[2024-08-05 21:56] LABS: Glucose - Point of Care 96 mg/dl (70-99)
[2024-08-05] MEDS: TYLENOL 650 MG TUBE (23:02)
[2024-08-06] VITALS (8 sets, daily range): BP systolic 103–178; BP diastolic 57–82; PULSE 85; O2SAT 96; BMI 19.5
[2024-08-06 06:34] LABS: Hematocrit 25.6 % (39.0-52.0); Hemoglobin 8.2 g/dL (13.0-18.0); Mean Corpuscular Hgb 29.4 pg (27.0-31.0); Mean Corpuscular Volume 91.8 fL (80.0-94.0); Platelet Count 306 10^3/uL (130-400); Red Blood Cell Count 2.79 10^6/uL (4.70-6.10); White Blood Cell Count 9.5 10^3/uL (4.8-10.8)
[2024-08-06 06:59] LABS: Blood Urea Nitrogen 40 mg/dl (9-20); Calcium 10.5 mg/dl (8.4-10.2); Carbon Dioxide 30 mmol/L (22-30); Chloride 98 mmol/L (98-107); Estimated Creatinine Clearance 24 ml/min; Glucose 83 mg/dl (70-99); Potassium 3.6 mmol/L (3.5-5.1); Sodium 138 mmol/L (135-145); eGFR 26.05
--- NOTE | 2024-08-06 07:18 | W.PN.HOSP.TC ---
Addendum entered and electronically signed by Benedict Villarreal MD 08/06/24 14:23:
I saw and evaluated the patient. I reviewed the resident�s note and agree with findings and plan as documented in the resident�s note.
Acute hypoxic respiratory failure, ventilator dependent respiratory failure, s/p PEA/cardiac arrest -patient had episode of mucous plugging with respiratory arrest. Patient was bradycardic at that time and likely added to the problem. Patient
require ventilator support and was able to be extubated--back on O2-- Dyspnea has improved with x6 with thoracentesis. Remains at high risk of decompensation and further respiratory problems
Hypercalcemia/parathyroid adenoma/secondary hyperparathyroidism -patient has significant hypercalcemia and likely secondary to ESRD/secondary hyperparathyroidism and parathyroid adenoma found on imaging. Parathyroid hormone close to 1000. Patient
has been maximized on Cinacalcet and also has been provided calcitonin/bisphosphonates. In light of refractory nature of hypercalcemia surgery has been consulted, patient is a candidate for minimally invasive parathyroidectomy once pulmonary status
stabilizes--underwent successful minimally invasive parathyroidectomy on 08/04. --PTH level has been dropping down --discussed with nephrology and recommended to discontinue further Cinacalcet for time being --patient was having some bleeding at
surgical site and was provided tranexamic acid -- clinically better now
Recurrent pleural effusion--patient underwent right-sided thoracentesis of 1.1 L--And left-sided thoracentesis of 1450ml, 1750 ml, 750ml, 1600ml, 1150ml, 700ml-- A Pleurx catheter was planned although insurance approval did not come through-- will
need weekly thoracentesis set up, seems to recur in less than 1 week, there is question if patient will be a candidate for chemical pleurodesis although patient--does not want to go through any painful procedure and has been postponed for now
--repeat chest x-ray has been ordered --patient effusion is also getting pseudo exudative based on last pleural fluid analysis.
Hypoglycemia episode -patient had episodes of hypoglycemia in the morning with glucose dropping to 35. His was off of the tube feed through the night as part of surgery need today. Patient clearly malnourished and have poor store. Tube feed has
been resumed.
Left mainstem bronchus obstruction, recurrent aspiration -patient have increased secretion and potential for recurrent bronchus obstruction and related complication-- pulmonary toileting--aspiration risk
Leukocytosis/hypothermia--resolved -- likely aspiration pneumonitis--finished 5 days of Unasyn
New onset GI bleed on 07/27--pt does not want workup, GI said would be high risk--follow HGB--cont PPI--apprec GI--resolved
hiccups--adding PRN thorazine
NSTEMI -patient was managed conservatively and has finished few days of heparin drip therapy. Echocardiogram showing ejection fraction of 50 to 55%.
Diastolic heart failure exacerbation -patient volume status being managed by hemodialysis, patient makes some urine
Hx CVA w L hemiparesis, dysarthria, dysphagia-- cont tube feeding
ESRD on MWF HD--apprec renal
anemia of chronic disease- transfused 2 unit pRBCs
Severe calcific atherosclerotic plaque in the coronary arteries on CT Chest
Right chronically impacted humeral neck fracture -imaging finding on CT chest, needs to be verified with previous records
protein calorie malnutrition--cachectic, stage 2 pressure wound--on tube feeds--feel at least moderate if not severe
sacrum stage 2 pressure injury--cont local wound care---unclear to me if POA
Hyponatremia
Essential Hypertension
Hyperlipidemia
Carotid artery disease s/p R CEA
BPH
Depression
code status--DNI--wants chest compressions
Case discussed with pulmonology
Original Note:
Today's Communication/Plan
-
- HD tw
Assessment / Plan
Assessment / Plan
L mainstem bronchus obstruction secondary to secretions
B/l pleural effusions likely secondary to underlying CHF and ESRD
SOB
- aspiration risk
- hx CVA/peg tube on tube feeding
- CPT
- resp cx: Pseudomonas, completed 7 days abx
- cont flutter valve
- L thoracentesis 06/21 #1: 1450 cc straw-colored pleural fluid
- R thoracentesis 06/22 #1: 1100 cc of clear yellow pleural fluid.
- L thoracentesis 06/29 #2: 1750 cc of serosanguineous pleural fluid.
- L thoracentesis 07/08 #3: 750 cc of clear yellow pleural fluid.
- L thoracentesis 07/19 #4: 1600 cc of straw colored pleural fluid
- L thoracentesis 07/26 #5: 1150 cc yellow pleural fluid evacuated
- L thoracentesis 07/30 #6: 700 cc of serosanguineous pleural fluid - - exudative
- appreciate pulm input
- CXR in AM
Episode of hypoglycemia
- from being NPO for surgery
- D50 ampule, D5NS
NSTEMI
CHF
- trop max 10.7
- was on a heparin drip
- Echo: LVEF 50-55%
- ASA, statin
- hold BB due to recent severe bradycardia
Acute on chronic HFpEF
- proBNP elevated
- echo: LVEF 50-55%
- volume overload managed by HD
Hypercalcemia secondary to parathyroid adenoma s/p parathyroidectomy 08/04 and hyperparathyroidism secondary to renal dysfunction
- vit D deficiency
- cinacalcit - stopped s/p surgery
- CT CAP: enlarged parathyroid
- thyroid us: parathyroid adenoma
- pamidronate x1
- surgery consulted - stable for dc once medically cleared
Hx CVA w L hemiparesis, dysarthria, dysphagia
- cont tube feeding
- PT/OT
- PMR consult
ESRD on MWF HD
anemia of chronic disease
- HD due 07/08
- transfused 2 unit pRBCs
Severe calcific atherosclerotic plaque in the coronary arteries on CT Chest
Right chronically impacted humeral neck fracture -imaging finding on CT chest, needs to be verified with previous records
Hyponatremia
Recent Flu
Benign Hypertension
Hyperlipidemia
Carotid artery disease s/p R CEA
BPH
Depression
Diet: tube feeding
DVT Prophylaxis: Heparin SUBQ
Code Status: limited - DNI only
Anticipated Discharge: > 48 hours
Subjective/Interval History
-
Date of Service: August 06, 2024
Pt had a skin bleed, which was oversewed bedside w good hemostasis. Pt tolerated procedure well. Refused evening heparin.
Objective Data
-
Labs:
Laboratory Results
08/06/24
05:25
WBC 9.5
Hgb 8.2 L
Hct 25.6 L
Plt Count 306
Sodium 138
Potassium 3.6
Chloride 98
Carbon Dioxide 30
BUN 40 H
Creatinine 2.6 H
Glucose 83
Calcium 10.5 H
Vital Signs:
Vital Signs
Temp Pulse Resp BP Pulse Ox
97.9 F 74 18 144/73 96
08/06/24 03:38 08/06/24 03:38 08/06/24 03:38 08/06/24 03:38 08/06/24 03:38
I&O
08/05/24 08/06/24 08/07/24
06:59 06:59 06:59
Intake Total 110 / 110 580 / 580
Output Total 0 / 0
Balance 110 / 110 580 / 580
Review of Systems
-
Constitutional: Reports No Symptoms
Respiratory: Reports Trouble Breathing
Cardiac: Reports No Symptoms
Abdomen/GI: Reports No Symptoms
Neuro: Reports No Symptoms
Physical Exam
-
General: Appears Chronically Ill and Cachectic
HEENT: Normocephalic and Atraumatic
Respiratory: Wheezes and Accessory Resp Muscle Use
Cardiac: Regular Rhythm and S1/S2
GI: Soft, Nontender, Nondistended, Normal Bowel Sounds and Peg Tube
Musculoskeletal: No Clubbing, No Cyanosis and No Edema
Skin: Warm and Dry
Neuro: Awake, Alert and Oriented
Psych: Calm
[2024-08-06 08:30] LABS: Glucose - Point of Care 97 mg/dl (70-99)
[2024-08-06] MEDS: WELLBUTRIN REGULAR RELEASE 150 MG TUBE ×2 (09:20→20:21)
[2024-08-06] MEDS: PROTONIX IV 40 MG IV ×2 (09:21→20:21)
[2024-08-06] MEDS: VISBIOME 1 CAP TUBE (09:21)
[2024-08-06] MEDS: LOW STRENGTH ASPIRIN 81 MG TUBE (09:21)
[2024-08-06] MEDS: HEPARIN 5000 UNITS SC (09:22)
[2024-08-06] MEDS: NSS (PRESERVATIVE FREE) 10 ML IV ×2 (09:22→20:20)
[2024-08-06] MEDS: ROBITUSSIN 200 MG TUBE ×4 (09:25→21:41)
[2024-08-06 12:18] LABS: Glucose - Point of Care 100 mg/dl (70-99)
--- NOTE | 2024-08-06 12:28 | W.PN.NEPH.PH ---
Today's Communication / Plan
-
HD tomorrow
Assessment/Plan
-
Impression:
ESRD MWF
Hypoxia/left lung atelectasis versus pneumonia
Large left pleural effusion s/p thoracentesis 06/21
CHF
Anemia
Hypertension hx
Hyponatremia
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
Hyperphosphatemia
PEG
Non-ST elevation MS
History of stroke with subsequent left hemiparesis dysarthria and dysphagia
Tunneled right HD IJ catheter
Chronic impacted right proximal humerus fracture
hypercalcemia
Plan:
HD tomorrow
holding sensipar
follow Calcium level
weekly thoracentesis as needed, unless another option is possible
-
-
Date of Service: August 06, 2024
CC / HPI / ROS
-
Chief Complaint:
ESRD
History of Present Illness:
hemodynamically stable
Hemodialysis on Saturday schedule
tolerated HD yesterday
s/p PTX left adenoma 08/04
requiring weekly thoracentesis
Review of Systems:
No chest pain
No fever
on supplemental O2
Labs
-
Labs:
WBC 9.5 10^3/uL (4.8-10.8) 08/06/24 05:25
RBC 2.79 10^6/uL (4.70-6.10) L 08/06/24 05:25
Hgb 8.2 g/dL (13.0-18.0) L 08/06/24 05:25
Hct 25.6 % (39.0-52.0) L 08/06/24 05:25
Plt Count 306 10^3/uL (130-400) 08/06/24 05:25
Sodium 138 mmol/L (135-145) 08/06/24 05:25
Potassium 3.6 mmol/L (3.5-5.1) 08/06/24 05:25
Chloride 98 mmol/L (98-107) 08/06/24 05:25
Carbon Dioxide 30 mmol/L (22-30) 08/06/24 05:25
BUN 40 mg/dl (9-20) H 08/06/24 05:25
Creatinine 2.6 mg/dL (0.7-1.3) H 08/06/24 05:25
eGFR 26.05 08/06/24 05:25
Glucose 83 mg/dl (70-99) 08/06/24 05:25
Calcium 10.5 mg/dl (8.4-10.2) H 08/06/24 05:25
Phosphorus 7.0 mg/dl (2.5-4.5) H 07/29/24 08:07
Qru-Z-Tfoafskcobv Pept > 31420 pg/ml 06/20/24 18:13
Albumin Cancelled 08/02/24 06:00
Physical Exam
-
Vital Signs:
Vital Signs
Temp Pulse Resp BP Pulse Ox
97.4 F 85 18 178/82 96
08/06/24 11:25 08/06/24 11:25 08/06/24 11:25 08/06/24 11:25 08/06/24 11:25
Cardiovascular:: Regular rate and rhythm
Respiratory:: Bilateral: Coarse
Lung Excursion:: Normal
Abdomen:: Nontender and Soft
Bowel Sounds:: Normal
Extremity Edema:: None: Bilateral:
[2024-08-06] MEDS: MIRALAX 17 GRAMS TUBE (13:17)
--- NOTE | 2024-08-06 15:03 | CM ---
CM following re: discharge planning.
Reviewed pt's chart, met with pt, met with pt's daughter Tawnya and challenging discharge plan/process has been discussed in details.
Both pt and her daughter are aware that [facility] might offer a bed and CM will coordinate discharge needs with [facility] team. Pt's daughter stated again that there is no plan for pt to return back to his house or go to her house and pt will
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 Pt continues expressing his dream wishes/plan to be able to continue living at his trailer. Pt's daughter is aware of medicaid application process and she stated she is
coordinating it with [facility] liaison Manisha.
CM met with [facility] liaison who will be working on coordination of a possible pt's admission. Per liaison, the mayor obstacle will be pt's needs of weekly vs biweekly taps at a local hospital that can be costly to them.
Per liaison [facility] has on site HD treatment and there will be no issues, just on chair/bed availability on the day of discharge.
D/C plan: preferred SNF. CM will continue coordinating possible discharge to [facility].
CM will follow with discharge plan updates as hospitalization progresses
--- NOTE | 2024-08-06 15:19 | WOUNDNOTE ---
[facility] RN NOTE: Patient visited to follow up on penis tip wound. Wound appears healed today. Staff can continue to use Calazime or Desitin if diarrhea resumes. Sacrum is closed and covered with silicone adhesive foam for additional protection. This
flex o writer operator reminded patient to turn and change positions to decrease pressure to sacrum. Patient continues on tube feeds and on Versa Care Air bed. Will sign off.
[2024-08-06] MEDS: THORAZINE 10 MG TUBE (16:26)
--- NOTE | 2024-08-06 16:32 | VATNOTE ---
on rounds noted left IV placed 08/04; pt has hx stroke and affected left arm. Pt cannot move left arm unless he uses right arm to lift it up. Pt really does not this VAT RN to start another IV on right; Elizabeth HAAS also stated pt has nothing and to
leave left arm IV in. Will honor pt wishes.
[2024-08-06 17:25] LABS: Glucose - Point of Care 123 mg/dl (70-99)
[2024-08-06] MEDS: CRESTOR 20 MG TUBE (18:27)
[2024-08-06] MEDS: COZAAR 25 MG TUBE (18:28)
[2024-08-06] MEDS: HEPARIN SC (20:20)
[2024-08-06] MEDS: ROXICODONE 5 MG TUBE (20:25)
[2024-08-06 21:38] LABS: Glucose - Point of Care 112 mg/dl (70-99)
[2024-08-06] MEDS: FOLVITE 2 MG TUBE (21:41)
[2024-08-06] MEDS: MELATONIN 5 MG TUBE (21:41)
[2024-08-07 03:30] VITALS: BP 143/79
[2024-08-07 07:52] VITALS: BP 143/94
[2024-08-07] MEDS: VISBIOME 1 CAP TUBE (08:26)
[2024-08-07] MEDS: HEPARIN 5000 UNITS SC ×2 (08:26→20:19)
[2024-08-07] MEDS: NSS (PRESERVATIVE FREE) 10 ML IV ×2 (08:26→20:19)
[2024-08-07] MEDS: WELLBUTRIN REGULAR RELEASE 150 MG TUBE ×2 (08:26→20:20)
[2024-08-07] MEDS: LOW STRENGTH ASPIRIN 81 MG TUBE (08:26)
[2024-08-07] MEDS: PROTONIX IV 40 MG IV ×2 (08:26→20:19)
[2024-08-07] MEDS: ROXICODONE 5 MG TUBE (08:29)
[2024-08-07 11:27] VITALS: BP 127/86
--- NOTE | 2024-08-07 12:53 | W.PN.HOSP.TC ---
Today's Communication/Plan
-
discharge planning for snf
Assessment / Plan
Assessment / Plan
Acute hypoxic respiratory failure, ventilator dependent respiratory failure, s/p PEA/cardiac arrest -patient had episode of mucous plugging with respiratory arrest. Patient was bradycardic at that time and likely added to the problem. Patient
require ventilator support and was able to be extubated--back on O2-- Dyspnea has improved with x6 with thoracentesis. Remains at high risk of decompensation and further respiratory problems
Hypercalcemia/parathyroid adenoma/secondary hyperparathyroidism -patient has significant hypercalcemia and likely secondary to ESRD/secondary hyperparathyroidism and parathyroid adenoma found on imaging. Parathyroid hormone close to 1000. Patient
has been maximized on Cinacalcet and also has been provided calcitonin/bisphosphonates. In light of refractory nature of hypercalcemia surgery has been consulted, patient is a candidate for minimally invasive parathyroidectomy once pulmonary status
stabilizes--underwent successful minimally invasive parathyroidectomy on 08/04. --PTH level has been dropping down --discussed with nephrology and recommended to discontinue further Cinacalcet for time being --patient was having some bleeding at
surgical site and was provided tranexamic acid -- clinically better now
Recurrent pleural effusion--patient underwent right-sided thoracentesis of 1.1 L--And left-sided thoracentesis of 1450ml, 1750 ml, 750ml, 1600ml, 1150ml, 700ml-- A Pleurx catheter was planned although insurance approval did not come through-- will
need weekly thoracentesis set up, seems to recur in less than 1 week, there is question if patient will be a candidate for chemical pleurodesis although patient--does not want to go through any painful procedure and has been postponed for now
--repeat chest x-ray has been ordered --patient effusion is also getting pseudo exudative based on last pleural fluid analysis. --Interventional radiology consulted for repeat left-sided thoracentesis as patient minimally symptomatic with
hypoxia/dyspnea
Hypoglycemia episode -patient had episodes of hypoglycemia in the morning with glucose dropping to 35. His was off of the tube feed through the night as part of surgery need today. Patient clearly malnourished and have poor store. Tube feed has
been resumed.
Left mainstem bronchus obstruction, recurrent aspiration -patient have increased secretion and potential for recurrent bronchus obstruction and related complication-- pulmonary toileting--aspiration risk
Leukocytosis/hypothermia--resolved -- likely aspiration pneumonitis--finished 5 days of Unasyn
New onset GI bleed on 07/27--pt does not want workup, GI said would be high risk--follow HGB--cont PPI--apprec GI--resolved
hiccups--adding PRN Thorazine
NSTEMI -patient was managed conservatively and has finished few days of heparin drip therapy. Echocardiogram showing ejection fraction of 50 to 55%.
Diastolic heart failure exacerbation -patient volume status being managed by hemodialysis, patient makes some urine
Hx CVA w L hemiparesis, dysarthria, dysphagia-- cont tube feeding
ESRD on MWF HD--apprec renal
anemia of chronic disease- transfused 2 unit pRBCs
Severe calcific atherosclerotic plaque in the coronary arteries on CT Chest
Right chronically impacted humeral neck fracture -imaging finding on CT chest, needs to be verified with previous records
protein calorie malnutrition--cachectic, stage 2 pressure wound--on tube feeds--feel at least moderate if not severe
sacrum stage 2 pressure injury--cont local wound care---unclear to me if POA
Hyponatremia
Essential Hypertension
Hyperlipidemia
Carotid artery disease s/p R CEA
BPH
Depression
code status--DNI--wants chest compressions
Case discussed with pulmonology
Anticipated Discharge: > 48 hours
Subjective/Interval History
-
Date of Service: August 07, 2024
having some dyspnea
remains on o2 through [place]
Objective Data
-
Vital Signs:
Vital Signs
Temp Pulse Resp BP Pulse Ox
97.5 F 69 16 127/86 98
08/07/24 03:30 08/07/24 11:27 08/07/24 11:27 08/07/24 11:27 08/07/24 11:27
I&O
08/06/24 08/07/24 08/08/24
06:59 06:59 06:59
Intake Total 580 / 580
Output Total 0 / 0
Balance 580 / 580
Review of Systems
-
Respiratory: Denies Trouble Breathing or Wheezing
Cardiac: Reports No Symptoms
Abdomen/GI: Reports No Symptoms
Physical Exam
-
General: Appears in Distress and Cachectic
HEENT: Negative Oxygen
Respiratory: Negative Wheezes
Cardiac: Regular Rhythm and S1/S2; Negative Murmur
Neuro: Awake, Alert and Oriented
--- NOTE | 2024-08-07 13:06 | W.PN.NEPH.HD ---
Assessment
-
Patient seen on dialysis
Patient appears comfortable
UF set to 1 kg at current systolic blood pressure of 144
Progress Note - Hemodialysis
-
Date of Service: August 07, 2024
Duration: 30 minutes and 3 hours
Potassium Bath: 3
Calcium Bath: 2.5
Opti-Dialyzer: 160
Ultrafiltration: Other (1kg)
Blood Flow: 400
Dialysate Flow: 600
Heparin: none
EPO: 10K
[2024-08-07 13:24] LABS: Hematocrit 24.4 % (39.0-52.0); Hemoglobin 7.7 g/dL (13.0-18.0); Mean Corp Hgb Conc. 31.6 g/dL (33.0-37.0); Mean Corpuscular Hgb 29.2 pg (27.0-31.0); Mean Corpuscular Volume 92.4 fL (80.0-94.0); Mean Platelet Volume 8.9 fL (7.4-10.4); Platelet Count 300 10^3/uL (130-400); Red Blood Cell Count 2.64 10^6/uL (4.70-6.10); Red Cell Dist. Width 17.2 % (11.5-14.5); White Blood Cell Count 8.4 10^3/uL (4.8-10.8)
[2024-08-07] MEDS: RETACRIT 10000 UNITS IV (13:57)
--- NOTE | 2024-08-07 13:58 | CM ---
Addendum entered by Hailey Burton RN 08/07/24 14:44:
CM spoke with patient's daughter who is willing to expand referrals. CM sent referral to the following facilities:
[facility]
Addendum entered by Hailey Burton RN 08/07/24 14:25:
LESLIE spoke with Rachel from [facility] [phone]. Rachel stated that she had an onsite visit with patient and they are concerned that patient is too medically complicated. Patient will require frequent transportation for thoracentesis and facility is
concerns about cost of transportation. Rachel further stated that patient would need an authorization for transfer to their facility with plans for LTC.
CM spoke with patient's daughter who stated that she is working with [facility].
Original Note:
CM reviewed medical records. CM left message for [facility] to discuss progress of placement efforts. LESLIE will continue to follow.
[2024-08-07 14:19] LABS: Blood Urea Nitrogen 68 mg/dl (9-20); Calcium 10.5 mg/dl (8.4-10.2); Carbon Dioxide 28 mmol/L (22-30); Chloride 96 mmol/L (98-107); Estimated Creatinine Clearance 16 ml/min; Glucose 126 mg/dl (70-99); Potassium 3.6 mmol/L (3.5-5.1); Sodium 135 mmol/L (135-145); eGFR 16.01
[2024-08-07 15:01] LABS: Intact PTH 74.8 pg/ml (13.6-85.8)
[2024-08-07 15:13] VITALS: BP 153/86
[2024-08-07] MEDS: HEPARIN 3700 UNITS INTRACATH (16:10)
[2024-08-07 16:35] LABS: Glucose - Point of Care 108 mg/dl (70-99)
[2024-08-07] MEDS: XANAX 0.25 MG TUBE (18:07)
[2024-08-07] MEDS: CRESTOR 20 MG TUBE (18:07)
[2024-08-07] MEDS: REFRESH EYE DROPS (PF) 1 DROPS BOTH EYES (18:07)
[2024-08-07 19:51] VITALS: BP 135/84
[2024-08-07] MEDS: FOLVITE 2 MG TUBE (21:57)
[2024-08-07] MEDS: MORPHINE SULFATE 0.5 MG IV (21:57)
[2024-08-07] MEDS: MELATONIN 5 MG TUBE (21:57)
[2024-08-07 23:08] VITALS: BP 168/87
[2024-08-08] VITALS (7 sets, daily range): BP systolic 88–164; BP diastolic 67–91; BMI 17.7
[2024-08-08 01:03] LABS: Glucose - Point of Care 107 mg/dl (70-99)
[2024-08-08 05:40] LABS: Glucose - Point of Care 105 mg/dl (70-99)
[2024-08-08] MEDS: ROXICODONE 5 MG TUBE ×2 (05:44→17:18)
[2024-08-08] MEDS: WELLBUTRIN REGULAR RELEASE 150 MG TUBE ×2 (09:07→21:02)
[2024-08-08] MEDS: VISBIOME 1 CAP TUBE (09:07)
[2024-08-08] MEDS: LOW STRENGTH ASPIRIN 81 MG TUBE (09:07)
[2024-08-08] MEDS: HEPARIN 5000 UNITS SC (09:07)
[2024-08-08] MEDS: PROTONIX IV IV (09:08)
[2024-08-08] MEDS: NSS (PRESERVATIVE FREE) IV (09:08)
[2024-08-08 09:12] LABS: Hematocrit 28.7 % (39.0-52.0); Mean Corp Hgb Conc. 31.4 g/dL (33.0-37.0); Mean Corpuscular Hgb 29.3 pg (27.0-31.0); Mean Corpuscular Volume 93.5 fL (80.0-94.0); Mean Platelet Volume 8.5 fL (7.4-10.4); Platelet Count 342 10^3/uL (130-400); Red Blood Cell Count 3.07 10^6/uL (4.70-6.10); Red Cell Dist. Width 17.6 % (11.5-14.5); White Blood Cell Count 9.6 10^3/uL (4.8-10.8)
[2024-08-08 09:22] LABS: Blood Urea Nitrogen 44 mg/dl (9-20); Calcium 10.2 mg/dl (8.4-10.2); Carbon Dioxide 29 mmol/L (22-30); Chloride 99 mmol/L (98-107); Estimated Creatinine Clearance 24 ml/min; Glucose 126 mg/dl (70-99); Potassium 3.6 mmol/L (3.5-5.1); Sodium 140 mmol/L (135-145); eGFR 28.49
[2024-08-08] MEDS: PROTONIX IV 40 MG IV ×2 (10:00→21:01)
[2024-08-08] MEDS: NSS (PRESERVATIVE FREE) 10 ML IV ×2 (10:02→21:02)
--- NOTE | 2024-08-08 12:04 | W.PN.NEPH.PH ---
Today's Communication / Plan
-
Next dialysis will be on Saturday
Assessment/Plan
-
Impression:
ESRD MWF
Hypoxia/left lung atelectasis versus pneumonia
Large left pleural effusion s/p thoracentesis 06/21
CHF
Anemia
Hypertension hx
Hyponatremia
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
Hyperphosphatemia
PEG
Non-ST elevation [place]
History of stroke with subsequent left hemiparesis dysarthria and dysphagia
Tunneled right HD IJ catheter
Chronic impacted right proximal humerus fracture
hypercalcemia
Plan:
HD will be provided on Saturday
holding sensipar serum calcium now normalized following parathyroidectomy surgery
weekly thoracentesis as needed, unless another option is possible
Tube feeds on
-
-
Date of Service: August 08, 2024
CC / HPI / ROS
-
Chief Complaint:
ESRD
History of Present Illness:
hemodynamically stable
Hemodialysis on Saturday schedule
tolerated HD yesterday
s/p PTX left adenoma 08/04 with serum calcium now normal
requiring weekly thoracentesis
Review of Systems:
No chest pain
No fever
on supplemental O2
PEG feeds on
Labs
-
Labs:
WBC 9.6 10^3/uL (4.8-10.8) 08/08/24 08:59
RBC 3.07 10^6/uL (4.70-6.10) L 08/08/24 08:59
Hgb 9.0 g/dL (13.0-18.0) L 08/08/24 08:59
Hct 28.7 % (39.0-52.0) L 08/08/24 08:59
Plt Count 342 10^3/uL (130-400) 08/08/24 08:59
Sodium 140 mmol/L (135-145) 08/08/24 08:59
Potassium 3.6 mmol/L (3.5-5.1) 08/08/24 08:59
Chloride 99 mmol/L (98-107) 08/08/24 08:59
Carbon Dioxide 29 mmol/L (22-30) 08/08/24 08:59
BUN 44 mg/dl (9-20) H 08/08/24 08:59
Creatinine 2.4 mg/dL (0.7-1.3) H 08/08/24 08:59
eGFR 28.49 08/08/24 08:59
Glucose 126 mg/dl (70-99) H 08/08/24 08:59
Calcium 10.2 mg/dl (8.4-10.2) 08/08/24 08:59
Phosphorus 7.0 mg/dl (2.5-4.5) H 07/29/24 08:07
Bic-P-Plfeymhkdwu Pept > 84978 pg/ml 06/20/24 18:13
Albumin Cancelled 08/02/24 06:00
Physical Exam
-
Vital Signs:
Vital Signs
Temp Pulse Resp BP Pulse Ox
97.5 F 84 16 140/88 93
08/08/24 07:50 08/08/24 07:50 08/08/24 07:50 08/08/24 07:50 08/08/24 07:50
Cardiovascular:: Regular rate and rhythm
Respiratory:: Bilateral: Coarse
Lung Excursion:: Normal
Abdomen:: Nontender and Soft
Bowel Sounds:: Normal
Extremity Edema:: None: Bilateral:
[2024-08-08 12:06] LABS: Glucose - Point of Care 113 mg/dl (70-99)
--- NOTE | 2024-08-08 13:51 | W.PN.HOSP.TC ---
Today's Communication/Plan
-
post thoracentesis
discharge planning
Assessment / Plan
Assessment / Plan
Acute hypoxic respiratory failure, ventilator dependent respiratory failure, s/p PEA/cardiac arrest -patient had episode of mucous plugging with respiratory arrest. Patient was bradycardic at that time and likely added to the problem. Patient
require ventilator support and was able to be extubated--back on O2-- Dyspnea has improved with x6 with thoracentesis. Remains at high risk of decompensation and further respiratory problems
Hypercalcemia/parathyroid adenoma/secondary hyperparathyroidism -patient has significant hypercalcemia and likely secondary to ESRD/secondary hyperparathyroidism and parathyroid adenoma found on imaging. Parathyroid hormone close to 1000. Patient
has been maximized on Cinacalcet and also has been provided calcitonin/bisphosphonates. In light of refractory nature of hypercalcemia surgery has been consulted, patient is a candidate for minimally invasive parathyroidectomy once pulmonary status
stabilizes--underwent successful minimally invasive parathyroidectomy on 08/04. --PTH level has been dropping down --discussed with nephrology and recommended to discontinue further Cinacalcet for time being --patient was having some bleeding at
surgical site and was provided tranexamic acid -- clinically better now
Recurrent pleural effusion--patient underwent right-sided thoracentesis of 1.1 L--And left-sided thoracentesis of 1450ml, 1750 ml, 750ml, 1600ml, 1150ml, 700ml-- A Pleurx catheter was planned although insurance approval did not come through-- will
need weekly thoracentesis set up, seems to recur in less than 1 week, there is question if patient will be a candidate for chemical pleurodesis although patient--does not want to go through any painful procedure and has been postponed for now
--repeat chest x-ray has been ordered --patient effusion is also getting pseudo exudative based on last pleural fluid analysis. --Interventional radiology consulted and drained 800 cc of pleural fluid on 08/08 -fluid collection slowing down possibly.
may require less frequent thoracentesis
Hypoglycemia episode -patient had episodes of hypoglycemia in the morning with glucose dropping to 35. His was off of the tube feed through the night as part of surgery need today. Patient clearly malnourished and have poor store. Tube feed has
been resumed.
Left mainstem bronchus obstruction, recurrent aspiration -patient have increased secretion and potential for recurrent bronchus obstruction and related complication-- pulmonary toileting--aspiration risk
Leukocytosis/hypothermia--resolved -- likely aspiration pneumonitis--finished 5 days of Unasyn
New onset GI bleed on 07/27--pt does not want workup, GI said would be high risk--follow HGB--cont PPI--apprec GI--resolved
hiccups--adding PRN Thorazine
NSTEMI -patient was managed conservatively and has finished few days of heparin drip therapy. Echocardiogram showing ejection fraction of 50 to 55%.
Diastolic heart failure exacerbation -patient volume status being managed by hemodialysis, patient makes some urine
Hx CVA w L hemiparesis, dysarthria, dysphagia-- cont tube feeding
ESRD on MWF HD--apprec renal
anemia of chronic disease- transfused 2 unit pRBCs
Severe calcific atherosclerotic plaque in the coronary arteries on CT Chest
Right chronically impacted humeral neck fracture -imaging finding on CT chest, needs to be verified with previous records
protein calorie malnutrition--cachectic, stage 2 pressure wound--on tube feeds--feel at least moderate if not severe
sacrum stage 2 pressure injury--cont local wound care---unclear to me if POA
Hyponatremia
Essential Hypertension
Hyperlipidemia
Carotid artery disease s/p R CEA
BPH
Depression
code status--DNI--wants chest compressions
Case discussed with pulmonology
Anticipated Discharge: > 48 hours
Subjective/Interval History
-
Date of Service: August 08, 2024
Minimal hypoxia
Nonproductive cough
No other issues reported
Objective Data
-
Labs:
Laboratory Results
08/08/24
08:59
WBC 9.6
Hgb 9.0 L
Hct 28.7 L
Plt Count 342
Sodium 140
Potassium 3.6
Chloride 99
Carbon Dioxide 29
BUN 44 H
Creatinine 2.4 H
Glucose 126 H
Calcium 10.2
Vital Signs:
Vital Signs
Temp Pulse Resp BP Pulse Ox
97.4 F 86 16 146/91 100
08/08/24 11:45 08/08/24 11:45 08/08/24 11:45 08/08/24 11:45 08/08/24 11:45
Review of Systems
-
Respiratory: Reports No Symptoms
Cardiac: Reports No Symptoms
Abdomen/GI: Reports No Symptoms
Physical Exam
-
General: Appears in Distress and Cachectic
HEENT: Negative Oxygen
Respiratory: Negative Wheezes
Cardiac: Regular Rhythm and S1/S2; Negative Murmur
Neuro: Awake, Alert and Oriented
[2024-08-08] MEDS: ZOFRAN 4 MG IV (14:27)
[2024-08-08 16:50] LABS: Glucose - Point of Care 116 mg/dl (70-99)
[2024-08-08] MEDS: CRESTOR 20 MG TUBE (17:12)
[2024-08-08] MEDS: COZAAR 25 MG TUBE (17:12)
[2024-08-08] MEDS: HEPARIN SC ×2 (21:00→21:08)
[2024-08-08] MEDS: FOLVITE 2 MG TUBE (21:06)
[2024-08-08] MEDS: MELATONIN 5 MG TUBE (21:06)
--- NOTE | 2024-08-08 21:33 | PTCARENOTE ---
Patient requesting not to be disturbed overnight with 3 am vital signs. Patient is agreeable to 'occasional' turning and repositioning to prevent skin breakdown.
[2024-08-08 23:57] LABS: Glucose - Point of Care 116 mg/dl (70-99)
--- NOTE | 2024-08-09 06:04 | PTCARENOTE ---
Patient currently refusing blood glucose check. Pt educated but continues to decline check at this time
[2024-08-09] MEDS: HEPARIN 5000 UNITS SC ×2 (09:00→21:48)
[2024-08-09] MEDS: NSS (PRESERVATIVE FREE) 10 ML IV ×2 (09:00→21:47)
[2024-08-09] MEDS: VISBIOME 1 CAP TUBE (09:00)
[2024-08-09] MEDS: PROTONIX IV 40 MG IV ×2 (09:00→21:47)
[2024-08-09] MEDS: LOW STRENGTH ASPIRIN 81 MG TUBE (09:00)
[2024-08-09] MEDS: WELLBUTRIN REGULAR RELEASE 150 MG TUBE ×2 (09:00→21:46)
[2024-08-09] MEDS: ROXICODONE 5 MG TUBE ×3 (09:50→22:16)
--- NOTE | 2024-08-09 12:32 | W.PN.HOSP.TC ---
Today's Communication/Plan
-
discharge planning
Assessment / Plan
Assessment / Plan
Acute hypoxic respiratory failure, ventilator dependent respiratory failure, s/p PEA/cardiac arrest -patient had episode of mucous plugging with respiratory arrest. Patient was bradycardic at that time and likely added to the problem. Patient
require ventilator support and was able to be extubated--back on O2-- Dyspnea has improved with x6 with thoracentesis. Remains at high risk of decompensation and further respiratory problems
Hypercalcemia/parathyroid adenoma/secondary hyperparathyroidism -patient has significant hypercalcemia and likely secondary to ESRD/secondary hyperparathyroidism and parathyroid adenoma found on imaging. Parathyroid hormone close to 1000. Patient
has been maximized on Cinacalcet and also has been provided calcitonin/bisphosphonates. In light of refractory nature of hypercalcemia surgery has been consulted, patient is a candidate for minimally invasive parathyroidectomy once pulmonary status
stabilizes--underwent successful minimally invasive parathyroidectomy on 08/04. --PTH level has been dropping down --discussed with nephrology and recommended to discontinue further Cinacalcet for time being --patient was having some bleeding at
surgical site and was provided tranexamic acid --follow-up calcium level tomorrow
Recurrent pleural effusion--patient underwent right-sided thoracentesis of 1.1 L--And left-sided thoracentesis of 1450ml, 1750 ml, 750ml, 1600ml, 1150ml, 700ml-- A Pleurx catheter was planned although insurance approval did not come through-- will
need weekly thoracentesis set up, seems to recur in less than 1 week, there is question if patient will be a candidate for chemical pleurodesis although patient--does not want to go through any painful procedure and has been postponed for now
--repeat chest x-ray has been ordered --patient effusion is also getting pseudo exudative based on last pleural fluid analysis. --Interventional radiology consulted and drained 800 cc of pleural fluid on 08/08 -fluid collection slowing down possibly.
may require less frequent thoracentesis
Hypoglycemia episode -when patient was n.p.o. for the surgery. No further episode after reinitiation of tube feed.
Left mainstem bronchus obstruction, recurrent aspiration -patient have increased secretion and potential for recurrent bronchus obstruction and related complication-- pulmonary toileting--aspiration risk
Leukocytosis/hypothermia--resolved -- likely aspiration pneumonitis--finished 5 days of Unasyn
New onset GI bleed on 07/27-- resolved -- pt does not want workup, GI said would be high risk--follow HGB--cont PPI--apprec GI
hiccups--resolved.
NSTEMI -patient was managed conservatively and has finished few days of heparin drip therapy. Echocardiogram showing ejection fraction of 50 to 55%.
Diastolic heart failure exacerbation -patient volume status being managed by hemodialysis, patient makes some urine
Hx CVA w L hemiparesis, dysarthria, dysphagia-- cont tube feeding
ESRD on MWF HD--apprec renal
anemia of chronic disease- transfused 2 unit pRBCs. monitor periodically.
Severe calcific atherosclerotic plaque in the coronary arteries on CT Chest
Right chronically impacted humeral neck fracture -imaging finding on CT chest, needs to be verified with previous records
protein calorie malnutrition--cachectic, stage 2 pressure wound--on tube feeds--feel at least moderate if not severe
sacrum stage 2 pressure injury--cont local wound care---unclear to me if POA
Hyponatremia
Essential Hypertension
Hyperlipidemia
Carotid artery disease s/p R CEA
BPH
Depression
code status--DNI--wants chest compressions
Case discussed with pulmonology
Anticipated Discharge: Today
Subjective/Interval History
-
Date of Service: August 09, 2024
Breathing subjectively better
Oxygen requirement stable
No new issues reported
Objective Data
-
Vital Signs:
Vital Signs
Temp Pulse Resp BP Pulse Ox
97.8 F 85 16 121/69 98
08/08/24 23:08 08/08/24 23:08 08/08/24 23:08 08/08/24 23:08 08/08/24 23:08
I&O
08/08/24 08/09/24 08/10/24
06:59 06:59 06:59
Intake Total 900 / 900
Balance 900 / 900
Review of Systems
-
Respiratory: Reports No Symptoms
Cardiac: Reports No Symptoms
Abdomen/GI: Reports No Symptoms
Physical Exam
-
General: Appears in Distress and Cachectic
HEENT: Negative Oxygen
Respiratory: Negative Wheezes
Cardiac: Regular Rhythm and S1/S2; Negative Murmur
Neuro: Awake, Alert and Oriented
--- NOTE | 2024-08-09 14:15 | W.PN.NEPH.PH ---
Today's Communication / Plan
-
Hd tomorrow
Assessment/Plan
-
Impression:
ESRD MWF
Hypoxia/left lung atelectasis versus pneumonia
Large left pleural effusion s/p thoracentesis 06/21
CHF
Anemia
Hypertension hx
Hyponatremia
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
Hyperphosphatemia
PEG
Non-ST elevation [place]
History of stroke with subsequent left hemiparesis dysarthria and dysphagia
Tunneled right HD IJ catheter
Chronic impacted right proximal humerus fracture
hypercalcemia
Plan:
HD will be provided on Saturday
holding sensipar serum calcium now normalized following parathyroidectomy surgery
weekly thoracentesis as needed, unless another option is possible
Tube feeds on
-
-
Date of Service: August 09, 2024
CC / HPI / ROS
-
Chief Complaint:
ESRD
History of Present Illness:
hemodynamically stable
Hemodialysis on Saturday schedule
s/p PTX left adenoma 08/04 with serum calcium now normal
requiring weekly thoracentesis
Review of Systems:
No chest pain
No fever
on supplemental O2
PEG feeds on
Labs
-
Labs:
WBC 9.6 10^3/uL (4.8-10.8) 08/08/24 08:59
RBC 3.07 10^6/uL (4.70-6.10) L 08/08/24 08:59
Hgb 9.0 g/dL (13.0-18.0) L 08/08/24 08:59
Hct 28.7 % (39.0-52.0) L 08/08/24 08:59
Plt Count 342 10^3/uL (130-400) 08/08/24 08:59
Sodium 140 mmol/L (135-145) 08/08/24 08:59
Potassium 3.6 mmol/L (3.5-5.1) 08/08/24 08:59
Chloride 99 mmol/L (98-107) 08/08/24 08:59
Carbon Dioxide 29 mmol/L (22-30) 08/08/24 08:59
BUN 44 mg/dl (9-20) H 08/08/24 08:59
Creatinine 2.4 mg/dL (0.7-1.3) H 08/08/24 08:59
eGFR 28.49 08/08/24 08:59
Glucose 126 mg/dl (70-99) H 08/08/24 08:59
Calcium 10.2 mg/dl (8.4-10.2) 08/08/24 08:59
Phosphorus 7.0 mg/dl (2.5-4.5) H 07/29/24 08:07
Fgg-C-Jsemohrkhsp Pept > 02051 pg/ml 06/20/24 18:13
Albumin Cancelled 08/02/24 06:00
Physical Exam
-
Vital Signs:
Vital Signs
Temp Pulse Resp BP Pulse Ox
97.8 F 85 16 121/69 98
08/08/24 23:08 08/08/24 23:08 08/08/24 23:08 08/08/24 23:08 08/08/24 23:08
Cardiovascular:: Regular rate and rhythm
Respiratory:: Bilateral: Coarse
Lung Excursion:: Normal
Abdomen:: Nontender and Soft
Bowel Sounds:: Normal
Extremity Edema:: None: Bilateral:
[2024-08-09 15:30] VITALS: BP 125/71
[2024-08-09 16:44] LABS: Glucose - Point of Care 118 mg/dl (70-99)
[2024-08-09] MEDS: CRESTOR 20 MG TUBE ×2 (17:59→18:03)
[2024-08-09] MEDS: MIRALAX 17 GRAMS TUBE (18:21)
[2024-08-09 19:00] VITALS: BP 134/80
[2024-08-09] MEDS: COZAAR 25 MG TUBE (21:46)
[2024-08-09] MEDS: MELATONIN 5 MG TUBE (21:46)
[2024-08-09] MEDS: FOLVITE 2 MG TUBE (21:46)
[2024-08-09] MEDS: TYLENOL 650 MG TUBE (22:16)
[2024-08-09 23:00] VITALS: BP 120/77
[2024-08-10] VITALS (7 sets, daily range): BP systolic 119–158; BP diastolic 63–88
[2024-08-10 00:31] LABS: Glucose - Point of Care 111 mg/dl (70-99)
[2024-08-10] MEDS: ZOFRAN 4 MG IV (05:59)
--- NOTE | 2024-08-10 06:00 | PTCARENOTE ---
Pt. refusing morning blood sugar, stating he's not feeling well. Given Zofran IV for nausea.
--- NOTE | 2024-08-10 08:15 | PTCARENOTE ---
Pt refused temperature recheck. Care remains ongoing.
[2024-08-10 08:18] LABS: Hematocrit 23.5 % (39.0-52.0); Hemoglobin 7.6 g/dL (13.0-18.0)
[2024-08-10 08:58] LABS: Albumin 3.4 g/dl (3.5-5.0); Blood Urea Nitrogen 97 mg/dl (9-20); Calcium 9.5 mg/dl (8.4-10.2); Carbon Dioxide 29 mmol/L (22-30); Chloride 96 mmol/L (98-107); Estimated Creatinine Clearance 13 ml/min; Glucose 121 mg/dl (70-99); Phosphorus 4.7 mg/dl (2.5-4.5); Potassium 3.7 mmol/L (3.5-5.1); Sodium 136 mmol/L (135-145); eGFR 13.77
[2024-08-10] MEDS: HEPARIN 5000 UNITS SC ×2 (09:03→20:16)
[2024-08-10] MEDS: PROTONIX IV 40 MG IV ×2 (09:06→20:16)
[2024-08-10] MEDS: LOW STRENGTH ASPIRIN 81 MG TUBE (09:06)
[2024-08-10] MEDS: NSS (PRESERVATIVE FREE) 10 ML IV ×2 (09:06→20:16)
[2024-08-10] MEDS: RETACRIT 10000 UNITS IV (09:14)
--- NOTE | 2024-08-10 10:00 | W.PN.NEPH.HD ---
Assessment
-
pt seen during HD
vitals stable
CVC functions well
off sensipar and suri better post Parathyroid surg
Progress Note - Hemodialysis
-
Date of Service: August 10, 2024
Duration: 30 minutes and 3 hours
Potassium Bath: 3
Calcium Bath: 2.5
Opti-Dialyzer: 160
Ultrafiltration: Other (0.5-1kg)
Blood Flow: 400
Dialysate Flow: 600
Heparin: no
EPO: [id number]
[2024-08-10] MEDS: HEPARIN 4200 UNITS INTRACATH (11:24)
[2024-08-10] MEDS: WELLBUTRIN REGULAR RELEASE TUBE (11:57)
[2024-08-10] MEDS: VISBIOME TUBE (11:57)
[2024-08-10 12:19] LABS: Glucose - Point of Care 108 mg/dl (70-99)
--- NOTE | 2024-08-10 15:33 | CM ---
Patient seen at bedside with physicians on [address]. Patient referrals sent to additional on site SNF dialysis direct facilities; [facility], [facility], [facility], [facility],
[facility] and [facility]. [facility] to follow up on acceptances. [facility] declined patient as has [facility]. CM awaiting response on [facility] from Liaison. CM will continue
to follow for discharge planning needs.
Plan; SNF; HD and thoracentesis as needed.
--- NOTE | 2024-08-10 15:53 | PTCARENOTE ---
Addendum entered by Sera Estrada RN 08/10/24 16:31:
Melquiades Gillis [facility] financial institution branch manager made aware. Care remains ongoing.
Original Note:
Pt rang to inform RN that this at 11 am his daughter meena is coming and the pt cannot be interrupted for anything while she is here. Dr Marques made aware. Care remains ongoing.
--- NOTE | 2024-08-10 17:02 | PTCARENOTE ---
Pt refusing temperature check. Medical team made aware. Care remains ongoing.
[2024-08-10] MEDS: THORAZINE 10 MG TUBE (17:11)
--- NOTE | 2024-08-10 18:16 | W.PN.HOSP.TC ---
Addendum entered and electronically signed by Isabella Marques MD 08/10/24 18:59:
I saw and evaluated the patient independently. I reviewed the resident�s note and agree with findings and plan as documented by Dr. Tran.
GENERAL: chronically ill appearing male cachectic in resp distress--trying to sit up and dangle feet off the bed
HEENT: NC/AT--O2 back on
HEART: regular rate and rhythm, +S1, +S2
LUNGS : clear to auscultation bilaterally--decreased BS left side
ABDOM: soft, nontender, nondistended, + bowel sounds
EXT: no cyanosis, clubbing, or edema
NEUROLOGIC: nonfocal
Acute hypoxic respiratory failure, ventilator dependent respiratory failure, s/p PEA/cardiac arrest -patient had episode of mucous plugging with respiratory arrest. Patient was bradycardic at that time and likely added to the problem. Patient
require ventilator support and was able to be extubated--back on O2--Dyspnea has improved with 8 thoracentesis (7 left and 1 right). Remains at high risk of decompensation and further respiratory problems--
Hypercalcemia/parathyroid adenoma/secondary hyperparathyroidism -patient has significant hypercalcemia and likely secondary to ESRD/secondary hyperparathyroidism and parathyroid adenoma found on imaging. Parathyroid hormone close to 1000. Patient
has been maximized on Cinacalcet and also has been provided calcitonin/bisphosphonates. In light of refractory nature of hypercalcemia surgery has been consulted, patient is a candidate for minimally invasive parathyroidectomy once pulmonary status
stabilizes-- surgery for parathyroid 08/04/24--had 7 gm adenoma removed
Left mainstem bronchus obstruction, recurrent aspiration -patient have increased secretion and potential for recurrent bronchus obstruction and related complication-- pulmonary toileting--aspiration risk
Leukocytosis/hypothermia--likely aspiration pneumonitis--finished 5 days of Unasyn
New onset GI bleed on 07/27--pt does not want workup, GI said would be high risk--follow HGB--cont PPI--apprec GI--resolved
Recurrent pleural effusion--patient underwent right-sided thoracentesis of 1.1 L--And left-sided thoracentesis of 1450ml, 1750 ml, 750ml, 1600ml, 1150ml, 700ml, 800mls-- A Pleurx catheter was planned although insurance approval did not come
through-- will need weekly thoracentesis set up
hiccups--adding PRN thorazine--seems resolved
NSTEMI -patient was managed conservatively and has finished few days of heparin drip therapy. Echocardiogram showing ejection fraction of 50 to 55%.
Diastolic heart failure exacerbation -patient volume status being managed by hemodialysis, patient makes some urine--recurrent pleural effusions not controlled with HD
Hx CVA w L hemiparesis, dysarthria, dysphagia-- cont tube feeding
ESRD on MWF HD--apprec renal
anemia of chronic disease- transfused 3 total unit pRBCs during this admission
Severe calcific atherosclerotic plaque in the coronary arteries on CT Chest
Right chronically impacted humeral neck fracture -imaging finding on CT chest, needs to be verified with previous records
protein calorie malnutrition--cachectic, stage 2 pressure wound--on tube feeds--feel at least moderate if not severe
sacrum stage 2 pressure injury--cont local wound care---unclear to me if POA
Hyponatremia
Essential Hypertension
Hyperlipidemia
Carotid artery disease s/p R CEA
BPH
Depression
code status--back to limited DNI--wants chest compressions--patient very frustrated with the fact that his fluid has reaccumulated and needs another tap--seems frustrated by the entire medical condition--started conversation about Pleurx catheter,
weekly thoracentesis, 3 times per week dialysis, tube feedings, severe debilitation and needing rehab, upcoming surgery for parathyroidectomy and explained to patient that if he feels he cannot go on any further or does not want to keep moving
forward that hospice is a viable option. Also explained that there would be no need to make that decision immediately but that he should think about it and talk with his family. Only he can decide what he is willing to put up with and for how long
regarding his debilitation.
Had approximately 45-minute conversation by phone on July 20, 2024 with patient's daughter and patient's ex---explained conversation that I started with the patient Wednesday 07/19 regarding hospice and what he is willing to put up with, medical
conditions currently, upcoming surgery, general debilitation and the fact that he has been hospitalized here for approximately 1 month. They explained that he was at [facility] from February to April of this year, then went to rehab, and
now here. Explained that in my medical opinion, I do not believe that he will be here next year at this time and that he is hospice appropriate. They then questioned the utility of the parathyroid surgery scheduled for tomorrow. At this time, we
will postpone surgery and have notified Dr. Stroud. They are in full agreement with having a rai conversation with the patient but do not wish to do so until July 30 when they are available to be here bedside and speak in person. I did ask if they
were able to come in sooner than July 30 to which the reply was no.
Came to see patient on rounds on 07/21 and he was on the phone with his daughter Tawnya. I started the conversation with the patient that I had with Tawnya and her mom on Thursday 07/20. I explained that I do not think that the patient will be here next
year at this time. I also told him that I do not think that he is rehab-able and that he will likely not get home and he will be in a intermediate long-term. Told the patient that I think meeting with hospice and having a rai discussion will be
another piece of the puzzle for him to make an informed decision about what he wants moving forward. I did explain that hospice is comfort focused. Patient was going to think about it and continue discussions with his family. They are still
anticipating coming in July 30 to have a discussion about options he may have.
07/22 asked patient again regarding what he thought about hospice, goals of care that we do spoke about. He stated that his daughter and are coming tomorrow , July 23, 2024. He told me that he feels by choosing hospice that that is
being 'selfish'. 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 He asked to speak to a algologist. We did contact produce laborer's office at his request.
pt and family have now decided against hospice and that he wants to continue moving forward
07/30 had meeting with daughter, and ex---showed them the chest x-ray of his recurrent pleural effusion--again, stated that I do not believe he will be here next year at this time, that he will be dependent upon intermediate and that he will never
go home--daughter replied, 'we are going to do what ever he wishes'
disposition planning--not LTAC candidate, not acute rehab candidate--no Asept cath per insurance--SNF.... Case management reported that patient daughter does not want him to leave the hospital without having his surgery even if he is medically
stable to do so, they also have not provided case management the outpatient dialysis center that he was at prior to his being hospitalized at [facility]
I reviewed patient's PT and OT notes and he cannot even sit on the side of the bed--I do not believe that he is rehab able--I believe that he will be a long-term intermediate resident, unfortunately
pt has been intermittently refusing care, labs, temps, turning, etc--
Original Note:
Today's Communication/Plan
-
.
Assessment / Plan
Assessment / Plan
1. Acute hypoxic respiratory failure, ventilator dependent respiratory failure, s/p PEA/cardiac arrest (resolved)
-patient had episode of mucous plugging with respiratory arrest. Patient was bradycardic at that time and likely added to the problem.
Patient require ventilator support and was able to be extubated
Dyspnea has improved with x6 with thoracentesis.
Remains at high risk of decompensation and further respiratory problems
-CXR (08/10): trace pleural fluid, mild atelectasis and interval improvement in mild interstitial edema
2. Hypercalcemia/parathyroid adenoma/secondary hyperparathyroidism
-patient has significant hypercalcemia and likely secondary to ESRD/secondary hyperparathyroidism and parathyroid adenoma found on imaging.
Parathyroid hormone close to 1000. Patient has been maximized on Cinacalcet and also has been provided calcitonin/bisphosphonates.
In light of refractory nature of hypercalcemia surgery has been consulted, patient is a candidate for minimally invasive parathyroidectomy once pulmonary status stabilizes
--underwent successful minimally invasive parathyroidectomy on 08/04. --PTH level has been dropping down --discussed with nephrology and recommended to discontinue further Cinacalcet for time being
--patient was having some bleeding at surgical site and was provided tranexamic acid --follow-up calcium level tomorrow
3. Recurrent pleural effusion
--patient underwent right-sided thoracentesis of 1.1 L--And left-sided thoracentesis of 1450ml, 1750 ml, 750ml, 1600ml, 1150ml, 700ml--
--A Pleurx catheter was planned although insurance approval did not come through
-- will need weekly thoracentesis set up, seems to recur in less than 1 week, there is question if patient will be a candidate for chemical pleurodesis although patient
--does not want to go through any painful procedure and has been postponed for now
--patient effusion is also getting pseudo exudative based on last pleural fluid analysis.
--Interventional radiology consulted and drained 800 cc of pleural fluid on 08/08 -fluid collection slowing down possibly. may require less frequent thoracentesis
--CXR (08/10): trace pleural effusions bilaterally
4. Left mainstem bronchus obstruction, recurrent aspiration -patient have increased secretion and potential for recurrent bronchus obstruction and related complication-- pulmonary toileting--aspiration risk
5. Leukocytosis/hypothermia--resolved -- likely aspiration pneumonitis--finished 5 days of Unasyn
6. New onset GI bleed on 07/27-- resolved -- pt does not want workup, GI said would be high risk--follow HGB--cont PPI--apprec GI
7. hiccups--resolved.
8. NSTEMI -patient was managed conservatively and has finished few days of heparin drip therapy. Echocardiogram showing ejection fraction of 50 to 55%.
9. Diastolic heart failure exacerbation -patient volume status being managed by hemodialysis, patient makes some urine
10. Hx CVA w L hemiparesis, dysarthria, dysphagia-- cont tube feeding
11. ESRD on MWF HD--apprec renal
anemia of chronic disease- transfused 2 unit pRBCs. monitor periodically. 1u prbcs today
Severe calcific atherosclerotic plaque in the coronary arteries on CT Chest
Right chronically impacted humeral neck fracture -imaging finding on CT chest, needs to be verified with previous records
protein calorie malnutrition--cachectic, stage 2 pressure wound--on tube feeds--feel at least moderate if not severe
sacrum stage 2 pressure injury--cont local wound care---unclear to me if POA
Hyponatremia
Essential Hypertension
Hyperlipidemia
Carotid artery disease s/p R CEA
BPH
Depression
code status--DNI--wants chest compressions
Diet: Tube Feeds (Nepro w/ Carb Steady)
Anticipated Discharge: Within 24 hours
Subjective/Interval History
-
Date of Service: August 10, 2024
Patient seen and examined this AM (late note). Patient in bed, just finished his dialysis. Patient was complaining of shortness of breath. O2 sats 97-98 through episode. Prior to dialysis, was feeling well. State portable chest XR was ordered which
showed trace pleural fluid, mild atelectasis and interval improvement in mild interstitial edema. Patient's shortness of breath resolved promptly.
Patient additionally has been intermittently refusing care per nursing.
Objective Data
-
Labs:
Laboratory Results
08/10/24
07:52
Hgb 7.6 L
Hct 23.5 L
Sodium 136
Potassium 3.7
Chloride 96 L
Carbon Dioxide 29
BUN 97 H
Creatinine 4.4 H*
Glucose 121 H
Calcium 9.5
Vital Signs:
Vital Signs
Temp Pulse Resp BP Pulse Ox
98.1 F 112 14 145/86 100
08/10/24 17:11 08/10/24 16:06 08/10/24 16:06 08/10/24 16:06 08/10/24 16:06
I&O
08/09/24 08/10/24 08/11/24
06:59 06:59 06:59
Intake Total 900 / 900 1200 / 1200
Output Total 0 / 0
Balance 900 / 900 1200 / 1200
Review of Systems
-
History Source: Patient
Respiratory: Reports Trouble Breathing
Cardiac: Reports No Symptoms
Abdomen/GI: Reports No Symptoms
Neuro: Reports No Symptoms
Physical Exam
-
General: Respiratory Distress
HEENT: Normocephalic and Atraumatic
Respiratory: Decreased Breath Sounds (left lung field)
Cardiac: Regular Rhythm and S1/S2
GI: Soft
Skin: Warm
Neuro: Awake and Alert
Psych: Anxious
Data Reviewed
-
Diagnostic Radiology: Image personally visualized and interpreted, Report Reviewed by me and Discussed with Patient
Labs: Labs Reviewed by me and Discussed with Patient
[2024-08-10] MEDS: MORPHINE SULFATE 0.5 MG IV ×2 (18:44→23:50)
[2024-08-10 19:23] LABS: Glucose - Point of Care 97 mg/dl (70-99)
[2024-08-10] MEDS: WELLBUTRIN REGULAR RELEASE 150 MG TUBE (20:18)
[2024-08-10 21:22] LABS: Glucose - Point of Care 89 mg/dl (70-99)
[2024-08-10] MEDS: ROXICODONE 5 MG TUBE (21:47)
[2024-08-10] MEDS: MELATONIN 5 MG TUBE (21:47)
[2024-08-10] MEDS: FOLVITE 2 MG TUBE (21:47)
[2024-08-10 23:59] LABS: Glucose - Point of Care 93 mg/dl (70-99)
[2024-08-11 05:49] LABS: Glucose - Point of Care 97 mg/dl (70-99)
[2024-08-11 06:00] VITALS: BMI 18.0
[2024-08-11 07:35] LABS: Hematocrit 27.5 % (39.0-52.0); Hemoglobin 9.1 g/dL (13.0-18.0); Mean Corp Hgb Conc. 33.1 g/dL (33.0-37.0); Mean Corpuscular Volume 90.8 fL (80.0-94.0); Mean Platelet Volume 8.9 fL (7.4-10.4); Platelet Count 293 10^3/uL (130-400); Red Blood Cell Count 3.03 10^6/uL (4.70-6.10); Red Cell Dist. Width 16.6 % (11.5-14.5); White Blood Cell Count 8.6 10^3/uL (4.8-10.8)
[2024-08-11 07:40] VITALS: BP 135/88
[2024-08-11 07:57] LABS: Blood Urea Nitrogen 50 mg/dl (9-20); Calcium 8.7 mg/dl (8.4-10.2); Carbon Dioxide 26 mmol/L (22-30); Chloride 99 mmol/L (98-107); Estimated Creatinine Clearance 21 ml/min; Glucose 90 mg/dl (70-99); Potassium 3.8 mmol/L (3.5-5.1); Sodium 135 mmol/L (135-145); eGFR 23.68
[2024-08-11] MEDS: NSS (PRESERVATIVE FREE) 10 ML IV ×2 (08:23→19:37)
--- NOTE | 2024-08-11 08:25 | W.PN.HOSP.TC ---
Addendum entered and electronically signed by Isabella Marques MD 08/11/24 14:58:
I saw and evaluated the patient independently. I reviewed the resident�s note and agree with findings and plan as documented by Dr. Tran.
GENERAL: chronically ill appearing male cachectic much improved resp status
HEENT: NC/AT--O2 back on
HEART: regular rate and rhythm, +S1, +S2
LUNGS : clear to auscultation bilaterally--decreased BS left side
ABDOM: soft, nontender, nondistended, + bowel sounds
EXT: no cyanosis, clubbing, or edema
NEUROLOGIC: nonfocal
Acute hypoxic respiratory failure, ventilator dependent respiratory failure, s/p PEA/cardiac arrest -patient had episode of mucous plugging with respiratory arrest. Patient was bradycardic at that time and likely added to the problem. Patient
require ventilator support and was able to be extubated--back on O2--Dyspnea has improved with 8 thoracentesis (7 left and 1 right). Remains at high risk of decompensation and further respiratory problems--
Hypercalcemia/parathyroid adenoma/secondary hyperparathyroidism -patient has significant hypercalcemia and likely secondary to ESRD/secondary hyperparathyroidism and parathyroid adenoma found on imaging. Parathyroid hormone close to 1000. Patient
has been maximized on Cinacalcet and also has been provided calcitonin/bisphosphonates. In light of refractory nature of hypercalcemia surgery has been consulted, patient is a candidate for minimally invasive parathyroidectomy once pulmonary status
stabilizes-- s/p surgery for parathyroid 08/04/24--had 7 gm adenoma removed--calcium returned to normal
Left mainstem bronchus obstruction, recurrent aspiration -patient have increased secretion and potential for recurrent bronchus obstruction and related complication-- pulmonary toileting--aspiration risk
Leukocytosis/hypothermia--likely aspiration pneumonitis--finished 5 days of Unasyn
New onset GI bleed on 07/27--pt does not want workup, GI said would be high risk--follow HGB--cont PPI--apprec GI--resolved
Recurrent pleural effusion--patient underwent right-sided thoracentesis of 1.1 L--And left-sided thoracentesis of 1450ml, 1750 ml, 750ml, 1600ml, 1150ml, 700ml, 800mls-- A Pleurx catheter was planned although insurance approval did not come
through-- will need weekly thoracentesis set up
hiccups--adding PRN thorazine--seems resolved
NSTEMI -patient was managed conservatively and has finished few days of heparin drip therapy. Echocardiogram showing ejection fraction of 50 to 55%.
Diastolic heart failure exacerbation -patient volume status being managed by hemodialysis, patient makes some urine--recurrent pleural effusions not controlled with HD, now pseudo-exudative
Hx CVA w L hemiparesis, dysarthria, dysphagia-- cont tube feeding
ESRD on MWF HD--apprec renal
anemia of chronic disease- transfused 3 total unit pRBCs during this admission
Severe calcific atherosclerotic plaque in the coronary arteries on CT Chest
Right chronically impacted humeral neck fracture -imaging finding on CT chest, needs to be verified with previous records
protein calorie malnutrition--cachectic, stage 2 pressure wound--on tube feeds--feel at least moderate if not severe
sacrum stage 2 pressure injury--cont local wound care---unclear to me if POA
Hyponatremia
Essential Hypertension
Hyperlipidemia
Carotid artery disease s/p R CEA
BPH
Depression
code status--back to limited DNI--wants chest compressions--patient very frustrated with the fact that his fluid has reaccumulated and needs another tap--seems frustrated by the entire medical condition--started conversation about Pleurx catheter,
weekly thoracentesis, 3 times per week dialysis, tube feedings, severe debilitation and needing rehab, upcoming surgery for parathyroidectomy and explained to patient that if he feels he cannot go on any further or does not want to keep moving
forward that hospice is a viable option. Also explained that there would be no need to make that decision immediately but that he should think about it and talk with his family. Only he can decide what he is willing to put up with and for how long
regarding his debilitation.
Had approximately 45-minute conversation by phone on July 20, 2024 with patient's daughter and patient's ex---explained conversation that I started with the patient Wednesday 07/19 regarding hospice and what he is willing to put up with, medical
conditions currently, upcoming surgery, general debilitation and the fact that he has been hospitalized here for approximately 1 month. They explained that he was at [facility] from February to April of this year, then went to rehab, and
now here. Explained that in my medical opinion, I do not believe that he will be here next year at this time and that he is hospice appropriate. They then questioned the utility of the parathyroid surgery scheduled for tomorrow. At this time, we
will postpone surgery and have notified Dr. Stroud. They are in full agreement with having a rai conversation with the patient but do not wish to do so until July 30 when they are available to be here bedside and speak in person. I did ask if they
were able to come in sooner than July 30 to which the reply was no.
Came to see patient on rounds on 07/21 and he was on the phone with his daughter Tawnya. I started the conversation with the patient that I had with Tawnya and her mom on Thursday 07/20. I explained that I do not think that the patient will be here next
year at this time. I also told him that I do not think that he is rehab-able and that he will likely not get home and he will be in a [facility] long-term. Told the patient that I think meeting with hospice and having a rai discussion will be
another piece of the puzzle for him to make an informed decision about what he wants moving forward. I did explain that hospice is comfort focused. Patient was going to think about it and continue discussions with his family. They are still
anticipating coming in July 30 to have a discussion about options he may have.
07/22 asked patient again regarding what he thought about hospice, goals of care that we do spoke about. He stated that his daughter and are coming tomorrow , July 23, 2024. He told me that he feels by choosing hospice that that is
being 'selfish'. He wants to be true to his Religion teaching. He asked to speak to a line ordering clinician. We did contact clinical investigator's office at his request.
pt and family have now decided against hospice and that he wants to continue moving forward
07/30 had meeting with daughter, and ex---showed them the chest x-ray of his recurrent pleural effusion--again, stated that I do not believe he will be here next year at this time, that he will be dependent upon [facility] and that he will never
go home--daughter replied, 'we are going to do what ever he wishes'
08/11--explained to patient that he has chosen to get better and move forward--therefore, he cannot refuse temps, lab draws, working with therapy etc....
disposition planning--not LTAC candidate, not acute rehab candidate--no Asept cath per insurance--SNF.... Case management reported that patient daughter does not want him to leave the hospital without having his surgery even if he is medically
stable to do so, they also have not provided case management the outpatient dialysis center that he was at prior to his being hospitalized at [facility]
I reviewed patient's PT and OT notes and he cannot even sit on the side of the bed--I do not believe that he is rehab able--I believe that he will be a long-term [facility] resident, unfortunately
Original Note:
Today's Communication/Plan
-
.
Assessment / Plan
Assessment / Plan
1. Acute hypoxic respiratory failure, ventilator dependent respiratory failure, s/p PEA/cardiac arrest (resolved)
-patient had episode of mucous plugging with respiratory arrest. Patient was bradycardic at that time and likely added to the problem.
-Patient require ventilator support and was able to be extubated
-Dyspnea has improved with x6 with thoracentesis.
-Remains at high risk of decompensation and further respiratory problems
-CXR (08/10): trace pleural fluid, mild atelectasis and interval improvement in mild interstitial edema
2. Hypercalcemia/parathyroid adenoma/secondary hyperparathyroidism
-patient has significant hypercalcemia and likely secondary to ESRD/secondary hyperparathyroidism and parathyroid adenoma found on imaging.
Parathyroid hormone close to 1000. Patient has been maximized on Cinacalcet and also has been provided calcitonin/bisphosphonates.
In light of refractory nature of hypercalcemia surgery has been consulted, patient is a candidate for minimally invasive parathyroidectomy once pulmonary status stabilizes
--underwent successful minimally invasive parathyroidectomy on 08/04. --PTH level has been dropping down --discussed with nephrology and recommended to discontinue further Cinacalcet for time being
--patient was having some bleeding at surgical site and was provided tranexamic acid --calcium levels within NML range
3. Recurrent pleural effusion
--patient underwent right-sided thoracentesis of 1.1 L--And left-sided thoracentesis of 1450ml, 1750 ml, 750ml, 1600ml, 1150ml, 700ml--
--A Pleurx catheter was planned although insurance approval did not come through
-- will need weekly thoracentesis set up, seems to recur in less than 1 week, there is question if patient will be a candidate for chemical pleurodesis although patient
--does not want to go through any painful procedure and has been postponed for now
--patient effusion is also getting pseudo exudative based on last pleural fluid analysis.
--Interventional radiology consulted and drained 800 cc of pleural fluid on 08/08 -fluid collection slowing down possibly. may require less frequent thoracentesis
--CXR (08/10): trace pleural effusions bilaterally
--Will need weekly thoracocenteses
4. Left mainstem bronchus obstruction, recurrent aspiration -patient have increased secretion and potential for recurrent bronchus obstruction and related complication-- pulmonary toileting--aspiration risk
5. Leukocytosis/hypothermia--resolved -- likely aspiration pneumonitis--finished 5 days of Unasyn
6. New onset GI bleed on 07/27-- resolved -- pt does not want workup, GI said would be high risk--follow HGB--cont PPI--apprec GI
7. hiccups--resolved.
8. NSTEMI -patient was managed conservatively and has finished few days of heparin drip therapy. Echocardiogram showing ejection fraction of 50 to 55%.
9. Diastolic heart failure exacerbation -patient volume status being managed by hemodialysis, patient makes some urine
10. Hx CVA w L hemiparesis, dysarthria, dysphagia-- cont tube feeding
11. ESRD on MWF HD--apprec renal; dialysis tomorrow
anemia of chronic disease- transfused 2 unit pRBCs. monitor periodically. Appropriate rise in Hb s/p 1 u prbc yesterday
Severe calcific atherosclerotic plaque in the coronary arteries on CT Chest
Right chronically impacted humeral neck fracture -imaging finding on CT chest, needs to be verified with previous records
protein calorie malnutrition--cachectic, stage 2 pressure wound--on tube feeds--feel at least moderate if not severe
sacrum stage 2 pressure injury--cont local wound care---unclear to me if POA
Hyponatremia
Essential Hypertension
Hyperlipidemia
Carotid artery disease s/p R CEA
BPH
Depression
code status--DNI--wants chest compressions
Diet: Tube Feeds (Nepro w/ Carb Steady)
Anticipated Discharge: 24 - 48 hours
Subjective/Interval History
-
Date of Service: August 11, 2024
Patient seen and examined while resting in bed. States he still feels short of breath but better than yesterday. Otherwise no acute complaints.
Objective Data
-
Labs:
Laboratory Results
08/11/24
06:33
WBC 8.6
Hgb 9.1 L
Hct 27.5 L
Plt Count 293
Sodium 135
Potassium 3.8
Chloride 99
Carbon Dioxide 26
BUN 50 H
Creatinine 2.8 H
Glucose 90
Calcium 8.7
Vital Signs:
Vital Signs
Temp Pulse Resp BP Pulse Ox
97.7 F 77 18 135/88 100
08/11/24 07:40 08/11/24 07:40 08/11/24 07:40 08/11/24 07:40 08/11/24 07:40
I&O
08/10/24 08/11/24 08/12/24
06:59 06:59 06:59
Intake Total 1200 / 1200 1150 / 1150
Output Total 0 / 0
Balance 1200 / 1200 1150 / 1150
Review of Systems
-
History Source: Patient
Respiratory: Reports Other (mildly SOB)
Cardiac: Reports No Symptoms
Musculoskeletal: Reports No Symptoms
Neuro: Reports No Symptoms
Physical Exam
-
General: Appears Chronically Ill and Cachectic
HEENT: Normocephalic, Atraumatic, Moist Mucous Membranes and Oxygen (NC 2L)
Respiratory: Decreased Breath Sounds (left)
Cardiac: Regular Rhythm and S1/S2
GI: Soft, Nontender and Nondistended
Musculoskeletal: No Clubbing, No Cyanosis and No Edema
Neuro: Awake, Alert and Nonfocal/Grossly Intact
Psych: Calm
Data Reviewed
-
Labs: Labs Reviewed by me and Discussed with Patient
[2024-08-11] MEDS: WELLBUTRIN REGULAR RELEASE 150 MG TUBE ×2 (08:31→19:37)
[2024-08-11] MEDS: PROTONIX IV 40 MG IV ×2 (08:31→19:37)
[2024-08-11] MEDS: LOW STRENGTH ASPIRIN 81 MG TUBE (08:31)
[2024-08-11] MEDS: VISBIOME 1 CAP TUBE (08:31)
[2024-08-11] MEDS: HEPARIN 5000 UNITS SC ×2 (08:32→19:37)
[2024-08-11] MEDS: ROXICODONE 5 MG TUBE ×2 (08:38→17:52)
[2024-08-11 11:49] VITALS: BP 140/87; PULSE 86; O2SAT 96
--- NOTE | 2024-08-11 11:51 | W.PN.NEPH.PH ---
Today's Communication / Plan
-
HD tomorrow
Assessment/Plan
-
Impression:
ESRD MWF
Hypoxia/left lung atelectasis versus pneumonia
Large left pleural effusion s/p thoracentesis 06/21
CHF
Anemia
Hypertension hx
Hyponatremia
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
Hyperphosphatemia
PEG
Non-ST elevation MA
History of stroke with subsequent left hemiparesis dysarthria and dysphagia
Tunneled right HD IJ catheter
Chronic impacted right proximal humerus fracture
hypercalcemia
Plan:
HD tomorrow
off sensipar as serum calcium now normalized following parathyroidectomy surgery 08/04
weekly thoracentesis as needed, unless another option is possible
Tube feeds on
await plascement
-
-
Date of Service: August 11, 2024
CC / HPI / ROS
-
Chief Complaint:
ESRD
History of Present Illness:
hemodynamically stable
Hemodialysis on Saturday schedule
s/p PTX left adenoma 08/04 with serum calcium now normal
requiring weekly thoracentesis
bp stable
Review of Systems:
mild sob intermittently , has cough seem chronic
No fever
on supplemental O2
PEG feeds on
Labs
-
Labs:
WBC 8.6 10^3/uL (4.8-10.8) 08/11/24 06:33
RBC 3.03 10^6/uL (4.70-6.10) L 08/11/24 06:33
Hgb 9.1 g/dL (13.0-18.0) L 08/11/24 06:33
Hct 27.5 % (39.0-52.0) L 08/11/24 06:33
Plt Count 293 10^3/uL (130-400) 08/11/24 06:33
Sodium 135 mmol/L (135-145) 08/11/24 06:33
Potassium 3.8 mmol/L (3.5-5.1) 08/11/24 06:33
Chloride 99 mmol/L (98-107) 08/11/24 06:33
Carbon Dioxide 26 mmol/L (22-30) 08/11/24 06:33
BUN 50 mg/dl (9-20) H 08/11/24 06:33
Creatinine 2.8 mg/dL (0.7-1.3) H 08/11/24 06:33
eGFR 23.68 08/11/24 06:33
Glucose 90 mg/dl (70-99) 08/11/24 06:33
Calcium 8.7 mg/dl (8.4-10.2) 08/11/24 06:33
Phosphorus 4.7 mg/dl (2.5-4.5) H 08/10/24 07:52
Ftk-V-Pmmexaaitdx Pept > 87342 pg/ml 06/20/24 18:13
Albumin 3.4 g/dl (3.5-5.0) L 08/10/24 07:52
Physical Exam
-
Vital Signs:
Vital Signs
Temp Pulse Resp BP Pulse Ox
97.7 F 77 18 135/88 100
08/11/24 07:40 08/11/24 07:40 08/11/24 07:40 08/11/24 07:40 08/11/24 07:40
Cardiovascular:: Regular rate and rhythm
Respiratory:: Bilateral: Coarse
Lung Excursion:: Normal
Abdomen:: Nontender and Soft
Extremity Edema:: None: Bilateral:
Bender Catheter: No
[2024-08-11 12:11] LABS: Glucose - Point of Care 97 mg/dl (70-99)
[2024-08-11 15:45] VITALS: BP 147/88
--- NOTE | 2024-08-11 16:13 | CM ---
Patient seen at bedside with physicians on . Patient plan is for daughter to come to discuss options on and Physician encouraged patient to cooperate with therapy and nursing to demonstrate willingness to make progress and try. CM
will continue to follow for discharge planning needs.
Plan; SNF
[2024-08-11] MEDS: CRESTOR 20 MG TUBE (17:52)
[2024-08-11] MEDS: COZAAR 25 MG TUBE (17:52)
[2024-08-11 18:04] LABS: Glucose - Point of Care 97 mg/dl (70-99)
[2024-08-11] MEDS: FOLVITE 2 MG TUBE (21:01)
[2024-08-11] MEDS: MELATONIN 5 MG TUBE (21:01)
[2024-08-11 22:31] LABS: Glucose - Point of Care 109 mg/dl (70-99)
[2024-08-11 23:10] VITALS: BP 132/84
--- NOTE | 2024-08-12 04:21 | DOWNTIME ---
Addendum entered by Felisha Ram RN 08/12/24 14:06:
Correction to downtime 08/12/2024 from 0100 to 08/12/24 at 0415.
Original Note:
There was a [employer] Downtime on 08/11/2024 from 0100 to 08/12/2024 at 0415. Downtime documentation of patient's care, including medication administrations, has been reconciled in the electronic record per guidelines. Refer to the
patient's paper chart under the miscellaneous tab to see printed paper medication records and downtime forms.
[2024-08-12 05:38] LABS: Glucose - Point of Care 112 mg/dl (70-99)
[2024-08-12] MEDS: MORPHINE SULFATE 0.5 MG IV ×2 (05:53→18:29)
[2024-08-12 06:00] VITALS: BMI 18.5
[2024-08-12 07:20] VITALS: BP 144/88
--- NOTE | 2024-08-12 08:13 | W.PN.HOSP.TC ---
Addendum entered and electronically signed by Isabella Marques MD 08/12/24 18:07:
I saw and evaluated the patient independently. I reviewed the resident�s note and agree with findings and plan as documented by Dr. Tran.
GENERAL: chronically ill appearing male cachectic much improved resp status
HEENT: NC/AT--O2 back on
HEART: regular rate and rhythm, +S1, +S2
LUNGS : clear to auscultation bilaterally--decreased BS left side
ABDOM: soft, nontender, nondistended, + bowel sounds
EXT: no cyanosis, clubbing, or edema
NEUROLOGIC: nonfocal
Acute hypoxic respiratory failure, ventilator dependent respiratory failure, s/p PEA/cardiac arrest -patient had episode of mucous plugging with respiratory arrest. Patient was bradycardic at that time and likely added to the problem. Patient
require ventilator support and was able to be extubated--back on O2--Dyspnea has improved with 8 thoracentesis (7 left and 1 right). Remains at high risk of decompensation and further respiratory problems--
Hypercalcemia/parathyroid adenoma/primary hyperparathyroidism-- parathyroid adenoma found on imaging. Parathyroid hormone close to 1000. Patient has been maximized on Cinacalcet and also has been provided calcitonin/bisphosphonates. In light of
refractory nature of hypercalcemia surgery has been consulted, patient is a candidate for minimally invasive parathyroidectomy once pulmonary status stabilizes-- s/p surgery for parathyroid 08/04/24--had 7 gm adenoma removed--calcium returned to
normal
Left mainstem bronchus obstruction, recurrent aspiration -patient has increased secretions and potential for recurrent bronchus obstruction and related complication-- pulmonary toileting--aspiration risk
Leukocytosis/hypothermia--likely aspiration pneumonitis--finished 5 days of Unasyn
New onset GI bleed on 07/27--pt does not want workup, GI said would be high risk--follow HGB, s/p 3 units of pRBC total this admission--cont PPI--apprec GI--resolved
Recurrent pleural effusion--patient underwent right-sided thoracentesis of 1.1 L--And left-sided thoracentesis of 1450ml, 1750 ml, 750ml, 1600ml, 1150ml, 700ml, 800mls-- A Pleurx catheter was planned although insurance approval did not come
through-- will need weekly thoracentesis set up
hiccups--adding PRN thorazine--seems resolved
NSTEMI -patient was managed conservatively-- Echocardiogram showing ejection fraction of 50 to 55%.
Diastolic heart failure exacerbation -patient volume status being managed by hemodialysis, patient makes some urine--recurrent pleural effusions not controlled with HD, now pseudo-exudative
Hx CVA w L hemiparesis, dysarthria, dysphagia-- cont tube feeding
ESRD on MWF HD--apprec renal
anemia of chronic disease- transfused 3 total unit pRBCs during this admission
Severe calcific atherosclerotic plaque in the coronary arteries on CT Chest
Right chronically impacted humeral neck fracture -imaging finding on CT chest, needs to be verified with previous records
protein calorie malnutrition--cachectic, stage 2 pressure wound--on tube feeds--feel at least moderate if not severe
sacrum stage 2 pressure injury, now with DTI of heel as per nursing--cont local wound care---unclear to me if POA
Hyponatremia
Essential Hypertension
Hyperlipidemia
Carotid artery disease s/p R CEA
BPH
Depression
code status--back to limited DNI--wants chest compressions--patient very frustrated with the fact that his fluid has reaccumulated and needs another tap--seems frustrated by the entire medical condition--07/19/24 started conversation about Pleurx
catheter, weekly thoracentesis, 3 times per week dialysis, tube feedings, severe debilitation and needing rehab, upcoming surgery for parathyroidectomy and explained to patient that if he feels he cannot go on any further or does not want to keep
moving forward that hospice is a viable option. Also explained that there would be no need to make that decision immediately but that he should think about it and talk with his family. Only he can decide what he is willing to put up with and for
how long regarding his debilitation.
Had approximately 45-minute conversation by phone on July 20, 2024 with patient's daughter and patient's ex---explained conversation that I started with the patient Wednesday 07/19 regarding hospice and what he is willing to put up with, medical
conditions currently, upcoming surgery, general debilitation and the fact that he has been hospitalized here for approximately 1 month. They explained that he was at [facility] from February to April of this year, then went to rehab, and
now here. Explained that in my medical opinion, I do not believe that he will be here next year at this time and that he is hospice appropriate. They then questioned the utility of the parathyroid surgery scheduled for tomorrow. At this time, we
will postpone surgery and have notified Dr. Stroud. They are in full agreement with having a rai conversation with the patient but do not wish to do so until July 30 when they are available to be here bedside and speak in person. I did ask if they
were able to come in sooner than July 30 to which the reply was no.
Came to see patient on rounds on 07/21 and he was on the phone with his daughter Tawnya. I started the conversation with the patient that I had with Tawnya and her mom on Thursday 07/20. I explained that I do not think that the patient will be here next
year at this time. I also told him that I do not think that he is rehab-able and that he will likely not get home and he will be in a skilled nursing long-term. Told the patient that I think meeting with hospice and having a rai discussion will be
another piece of the puzzle for him to make an informed decision about what he wants moving forward. I did explain that hospice is comfort focused. Patient was going to think about it and continue discussions with his family. They are still
anticipating coming in July 30 to have a discussion about options he may have.
07/22 asked patient again regarding what he thought about hospice, goals of care that we do spoke about. He stated that his daughter and are coming tomorrow , July 23, 2024. He told me that he feels by choosing hospice that that is
being 'selfish'. 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 He asked to speak to a assorter. We did contact health care recruiter's office at his request.
pt and family have now decided against hospice and that he wants to continue moving forward
07/30 had meeting with daughter, and ex---showed them the chest x-ray of his recurrent pleural effusion--again, stated that I do not believe he will be here next year at this time, that he will be dependent upon skilled nursing and that he will never
go home--daughter replied, 'we are going to do what ever he wishes'
08/11--explained to patient that he has chosen to get better and move forward--therefore, he cannot refuse temps, lab draws, working with therapy etc....
disposition planning--refused by LTAC, refused by acute rehab-no Asept cath per insurance--SNF.... Case management reported that patient daughter does not want him to leave the hospital without having his surgery even if he is medically stable to do
so, they also have not provided case management the outpatient dialysis center that he was at prior to his being hospitalized at [facility]
I reviewed patient's PT and OT notes and he cannot even sit on the side of the bed--I do not believe that he is rehab able--I believe that he will be a long-term skilled nursing resident, unfortunately
08/12/24 Daughter has refused multiple possible SNF options both with and without dialysis on site, having to pay for transportation to a hospital for weekly thoracentesis, etc as relayed to me by Case management--family meeting to be held 08/13/24
Original Note:
Today's Communication/Plan
-
.
Assessment / Plan
Assessment / Plan
1. Acute hypoxic respiratory failure, ventilator dependent respiratory failure, s/p PEA/cardiac arrest (resolved)
-patient had episode of mucous plugging with respiratory arrest. Patient was bradycardic at that time and likely added to the problem.
-Patient require ventilator support and was able to be extubated
-Dyspnea has improved with x6 with thoracentesis.
-Remains at high risk of decompensation and further respiratory problems
-CXR (08/10): trace pleural fluid, mild atelectasis and interval improvement in mild interstitial edema
2. Hypercalcemia/parathyroid adenoma/secondary hyperparathyroidism
-patient has significant hypercalcemia and likely secondary to ESRD/secondary hyperparathyroidism and parathyroid adenoma found on imaging.
Parathyroid hormone close to 1000. Patient has been maximized on Cinacalcet and also has been provided calcitonin/bisphosphonates.
In light of refractory nature of hypercalcemia surgery has been consulted, patient is a candidate for minimally invasive parathyroidectomy once pulmonary status stabilizes
--underwent successful minimally invasive parathyroidectomy on 08/04. --PTH level has been dropping down --discussed with nephrology and recommended to discontinue further Cinacalcet for time being
--patient was having some bleeding at surgical site and was provided tranexamic acid --calcium levels within NML range
3. Recurrent pleural effusion
--patient underwent right-sided thoracentesis of 1.1 L--And left-sided thoracentesis of 1450ml, 1750 ml, 750ml, 1600ml, 1150ml, 700ml--
--A Pleurx catheter was planned although insurance approval did not come through
-- will need weekly thoracentesis set up, seems to recur in less than 1 week, there is question if patient will be a candidate for chemical pleurodesis although patient
--does not want to go through any painful procedure and has been postponed for now
--patient effusion is also getting pseudo exudative based on last pleural fluid analysis.
--Interventional radiology consulted and drained 800 cc of pleural fluid on 08/08 -fluid collection slowing down possibly. may require less frequent thoracentesis
--CXR (08/10): trace pleural effusions bilaterally
--Will need weekly thoracocenteses
4. Left mainstem bronchus obstruction, recurrent aspiration -patient have increased secretion and potential for recurrent bronchus obstruction and related complication-- pulmonary toileting--aspiration risk
5. Leukocytosis/hypothermia--resolved -- likely aspiration pneumonitis--finished 5 days of Unasyn
6. New onset GI bleed on 07/27-- resolved -- pt does not want workup, GI said would be high risk--follow HGB--cont PPI--apprec GI
7. hiccups--resolved.
8. NSTEMI -patient was managed conservatively and has finished few days of heparin drip therapy. Echocardiogram showing ejection fraction of 50 to 55%.
9. Diastolic heart failure exacerbation -patient volume status being managed by hemodialysis, patient makes some urine
10. Hx CVA w L hemiparesis, dysarthria, dysphagia-- cont tube feeding
11. ESRD on MWF HD--apprec renal; dialysis today
anemia of chronic disease- transfused 2 unit pRBCs. monitor periodically. Appropriate rise in Hb s/p 1 u prbc; Hb stable today
Severe calcific atherosclerotic plaque in the coronary arteries on CT Chest
Right chronically impacted humeral neck fracture -imaging finding on CT chest, needs to be verified with previous records
protein calorie malnutrition--cachectic, stage 2 pressure wound--on tube feeds--feel at least moderate if not severe
sacrum stage 2 pressure injury--cont local wound care---unclear to me if POA
Hyponatremia
Essential Hypertension
Hyperlipidemia
Carotid artery disease s/p R CEA
BPH
Depression
code status--DNI--wants chest compressions
Diet: Tube Feeds (Nepro w/ Carb Steady)
Anticipated Discharge: 24 - 48 hours
Subjective/Interval History
-
Date of Service: August 12, 2024
Patient seen and examined while resting comfortably in bed. No acute complaints today. Scheduled for HD this AM.
Objective Data
-
Labs:
Laboratory Results
08/12/24
07:34
WBC Pending
Hgb Pending
Hct Pending
Plt Count Pending
Sodium Pending
Potassium Pending
Chloride Pending
Carbon Dioxide Pending
BUN Pending
Creatinine Pending
Glucose Pending
Calcium Pending
Total Bilirubin Pending
AST Pending
ALT Pending
Alkaline Phosphatase Pending
Vital Signs:
Vital Signs
Temp Pulse Resp BP Pulse Ox
98.6 F 74 17 132/84 100
08/11/24 23:10 08/11/24 23:10 08/11/24 23:10 08/11/24 23:10 08/11/24 23:10
I&O
08/11/24 08/12/24 08/13/24
06:59 06:59 06:59
Intake Total 1150 / 1150
Balance 1150 / 1150
Review of Systems
-
History Source: Patient
Constitutional: Reports No Symptoms
Respiratory: Reports No Symptoms and Cough (residual); Denies Trouble Breathing
Cardiac: Reports No Symptoms
Neuro: Reports No Symptoms
Physical Exam
-
General: Appears Chronically Ill and Cachectic
HEENT: Normocephalic and Atraumatic
Respiratory: Clear to Auscultation and Other (decreased breath sounds in left lung field that is improved from previous examination)
Cardiac: Regular Rhythm and S1/S2
GI: Soft
Musculoskeletal: No Clubbing, No Cyanosis and No Edema
Skin: Warm
Neuro: Awake and Alert
Psych: Calm
Data Reviewed
-
Labs: Labs Reviewed by me and Discussed with Patient
[2024-08-12] MEDS: FOLVITE 1 MG TUBE (09:23)
[2024-08-12] MEDS: WELLBUTRIN REGULAR RELEASE 150 MG TUBE ×2 (09:23→20:01)
[2024-08-12] MEDS: VISBIOME 1 CAP TUBE (09:23)
[2024-08-12] MEDS: HEPARIN 5000 UNITS SC ×2 (09:23→20:01)
[2024-08-12] MEDS: LOW STRENGTH ASPIRIN 81 MG TUBE (09:23)
[2024-08-12] MEDS: NSS (PRESERVATIVE FREE) 10 ML IV ×2 (09:24→20:01)
[2024-08-12] MEDS: PROTONIX IV 40 MG IV ×2 (09:24→20:01)
--- NOTE | 2024-08-12 09:51 | CM ---
CM spoke with patient daughter and update provided about options for SNF with HD on premise. Patient daughter reviewed options of [facility], [facility] and [facility]. Patient daughter stated that all options
were not feasible due to distance, or inability for her to get to see her father easily; and Daughter updated CM that patient is unwilling to pay for transportation to HD. CM reviewed [facility] in [place], but no current beds and no HD
on premises; patient daughter is not willing to return to [facility] for possible eventual transfer to [facility]. CM reviewed patient need to be consistent with participation with therapy and not refusing interventions with staff. Patient
daughter indicated that she understood and that his not participation did seem to indicate that patient was not consistent with his wishes to keep working on rehab. Patient daughter coming for meeting with patient tomorrow to talk to his financial
institutions and will be here approx 10:45-11:00am and would be willing to meet with physician if possible. CM will continue to follow for discharge planning needs.
Plan; SNF; expanding option referrals
[2024-08-12] MEDS: TYLENOL 650 MG TUBE (12:03)
[2024-08-12 12:06] LABS: Glucose - Point of Care 122 mg/dl (70-99)
--- NOTE | 2024-08-12 12:19 | PTCARENOTE ---
Pt argumentative stating regarding skin assessment to L heel. Pt c/o pain, PRN tylenol provided per request. RN asked to assess foot for area pain pt stated it was his heel. RN asked to assess, Pt visibly irritated stating ' i cant get any work
done'. Pt reluctantly agreeable, RN removed sock and heel foam and asked pt to help determine location of pain while inspecting skin. Pt becoming agitated yelling at RN while on his phone ' I am trying to get this work done' RN apologized and
explained the skin assessment was important ' i am only trying to help you, i need to assess your skin if your having pain to the area'. Pt again yelling at RN ' Your only doing this because you get paid'. Pt informed by RN that is RN is trying
provide care to pt and address pt concerns. Small purple area noted to lateral L heel, WOCN consult placed. Care remains ongoing.
[2024-08-12 12:58] LABS: Mean Corp Hgb Conc. 33.3 g/dL (33.0-37.0); Mean Corpuscular Hgb 30.5 pg (27.0-31.0); Mean Corpuscular Volume 91.5 fL (80.0-94.0); Platelet Count 275 10^3/uL (130-400); Red Blood Cell Count 2.95 10^6/uL (4.70-6.10); Red Cell Dist. Width 16.4 % (11.5-14.5); White Blood Cell Count 10.8 10^3/uL (4.8-10.8)
[2024-08-12 13:26] LABS: ALT (SGPT) 18 U/L (0-50); AST (SGOT) 26 U/L (17-59); Albumin 3.6 g/dl (3.5-5.0); Alkaline Phosphatase 221 U/L (38-126); Blood Urea Nitrogen 81 mg/dl (9-20); Calcium 8.7 mg/dl (8.4-10.2); Carbon Dioxide 26 mmol/L (22-30); Chloride 97 mmol/L (98-107); Estimated Creatinine Clearance 15 ml/min; Glucose 121 mg/dl (70-99); Sodium 134 mmol/L (135-145); Total Bilirubin 0.8 mg/dl (0.2-1.3); Total Protein 7.1 g/dl (6.3-8.2); eGFR 15.44
[2024-08-12] MEDS: RETACRIT 8000 UNITS IV (13:47)
--- NOTE | 2024-08-12 13:49 | W.PN.NEPH.HD ---
Assessment
-
patient seen on HD
sbp 170 at current u/f
Progress Note - Hemodialysis
-
Date of Service: August 12, 2024
Duration: 30 minutes and 3 hours
Potassium Bath: 3
Calcium Bath: 2.5
Opti-Dialyzer: 160
Ultrafiltration: Other (increase to 2 kg u/f)
Blood Flow: 400
Dialysate Flow: 600
Heparin: none
EPO: 8000
--- NOTE | 2024-08-12 14:30 | WOUNDNOTE ---
WOC RN NOTE: New WOC RN consult received for wound to left heel. Upon assessment left lateral heel wound appears to be a stage 1 PI. Wound is non-blanchable red. Patient reports occasional pain in left heel. Patient has +bilateral palpable pulses.
Right heel intact. Bilateral silicone border foam applied to heels. SPD called for fiber filled boots. Confirmed orders with hospitalist and RODRIGO taylor.
[2024-08-12 15:10] VITALS: BP 153/93
[2024-08-12 18:10] LABS: Glucose - Point of Care 102 mg/dl (70-99)
--- NOTE | 2024-08-12 18:25 | PTCARENOTE ---
Pt refusing fibber filled boots, demanding to have them removed stating ' they are too hot'. Education on skin breakdown and preventative measures provided, pt refusing education. Dr Marques notified. Care remains ongoing.
[2024-08-12] MEDS: CRESTOR 20 MG TUBE (18:30)
[2024-08-12] MEDS: THORAZINE 10 MG TUBE (20:01)
[2024-08-12] MEDS: MELATONIN 5 MG TUBE (22:15)
[2024-08-12 23:00] VITALS: BP 157/88
[2024-08-12 23:50] LABS: Glucose - Point of Care 79 mg/dl (70-99)
[2024-08-13 06:00] VITALS: BMI 18.7
[2024-08-13] MEDS: THORAZINE 10 MG TUBE (06:13)
[2024-08-13 07:10] VITALS: BP 143/82
--- NOTE | 2024-08-13 07:37 | W.PN.HOSP.TC ---
Addendum entered and electronically signed by Isabella Marques MD 08/13/24 17:13:
I saw and evaluated the patient independently. I reviewed the resident�s note and agree with findings and plan as documented by Dr. Tran.
GENERAL: chronically ill appearing male cachectic much improved resp status
HEENT: NC/AT--O2 back on
HEART: regular rate and rhythm, +S1, +S2
LUNGS : clear to auscultation bilaterally--decreased BS left side
ABDOM: soft, nontender, nondistended, + bowel sounds
EXT: no cyanosis, clubbing, or edema
NEUROLOGIC: nonfocal
Acute hypoxic respiratory failure, ventilator dependent respiratory failure, s/p PEA/cardiac arrest -patient had episode of mucous plugging with respiratory arrest. Patient was bradycardic at that time and likely added to the problem. Patient
require ventilator support and was able to be extubated--back on O2--Dyspnea has improved with 8 thoracentesis (7 left and 1 right). Remains at high risk of decompensation and further respiratory problems--
Hypercalcemia/parathyroid adenoma/primary hyperparathyroidism-- parathyroid adenoma found on imaging. Parathyroid hormone close to 1000. Patient has been maximized on Cinacalcet and also has been provided calcitonin/bisphosphonates. In light of
refractory nature of hypercalcemia surgery has been consulted, patient is a candidate for minimally invasive parathyroidectomy once pulmonary status stabilizes-- s/p surgery for parathyroid 08/04/24--had 7 gm adenoma removed--calcium returned to
normal
Left mainstem bronchus obstruction, recurrent aspiration -patient has increased secretions and potential for recurrent bronchus obstruction and related complication-- pulmonary toileting--aspiration risk
Leukocytosis/hypothermia--likely aspiration pneumonitis--finished 5 days of Unasyn
New onset GI bleed on 07/27--pt does not want workup, GI said would be high risk--follow HGB, s/p 3 units of pRBC total this admission--cont PPI--apprec GI--resolved
Recurrent pleural effusion--patient underwent right-sided thoracentesis of 1.1 L--And left-sided thoracentesis of 1450ml, 1750 ml, 750ml, 1600ml, 1150ml, 700ml, 800mls-- A Pleurx catheter was planned although insurance approval did not come
through-- will need weekly thoracentesis set up
hiccups--adding PRN thorazine--seems resolved
NSTEMI -patient was managed conservatively-- Echocardiogram showing ejection fraction of 50 to 55%.
Diastolic heart failure exacerbation -patient volume status being managed by hemodialysis, patient makes some urine--recurrent pleural effusions not controlled with HD, now pseudo-exudative
Hx CVA w L hemiparesis, dysarthria, dysphagia-- cont tube feeding
ESRD on MWF HD--apprec renal
anemia of chronic disease- transfused 3 total unit pRBCs during this admission
Severe calcific atherosclerotic plaque in the coronary arteries on CT Chest
Right chronically impacted humeral neck fracture -imaging finding on CT chest, needs to be verified with previous records
protein calorie malnutrition--cachectic, stage 2 pressure wound--on tube feeds--feel at least moderate if not severe
sacrum stage 2 pressure injury, now with DTI of heel as per nursing--cont local wound care---unclear to me if POA
Hyponatremia
Essential Hypertension
Hyperlipidemia
Carotid artery disease s/p R CEA
BPH
Depression
code status--back to limited DNI--wants chest compressions--patient very frustrated with the fact that his fluid has reaccumulated and needs another tap--seems frustrated by the entire medical condition--07/19/24 started conversation about Pleurx
catheter, weekly thoracentesis, 3 times per week dialysis, tube feedings, severe debilitation and needing rehab, upcoming surgery for parathyroidectomy and explained to patient that if he feels he cannot go on any further or does not want to keep
moving forward that hospice is a viable option. Also explained that there would be no need to make that decision immediately but that he should think about it and talk with his family. Only he can decide what he is willing to put up with and for
how long regarding his debilitation.
Had approximately 45-minute conversation by phone on July 20, 2024 with patient's daughter and patient's ex---explained conversation that I started with the patient Wednesday 07/19 regarding hospice and what he is willing to put up with, medical
conditions currently, upcoming surgery, general debilitation and the fact that he has been hospitalized here for approximately 1 month. They explained that he was at [facility] from February to April of this year, then went to rehab, and
now here. Explained that in my medical opinion, I do not believe that he will be here next year at this time and that he is hospice appropriate. They then questioned the utility of the parathyroid surgery scheduled for tomorrow. At this time, we
will postpone surgery and have notified Dr. Stroud. They are in full agreement with having a rai conversation with the patient but do not wish to do so until July 30 when they are available to be here bedside and speak in person. I did ask if they
were able to come in sooner than July 30 to which the reply was no.
Came to see patient on rounds on 07/21 and he was on the phone with his daughter Tawnya. I started the conversation with the patient that I had with Tawnya and her mom on Thursday 07/20. I explained that I do not think that the patient will be here next
year at this time. I also told him that I do not think that he is rehab-able and that he will likely not get home and he will be in a long-term long-term. Told the patient that I think meeting with hospice and having a rai discussion will be
another piece of the puzzle for him to make an informed decision about what he wants moving forward. I did explain that hospice is comfort focused. Patient was going to think about it and continue discussions with his family. They are still
anticipating coming in July 30 to have a discussion about options he may have.
07/22 asked patient again regarding what he thought about hospice, goals of care that we do spoke about. He stated that his daughter and are coming tomorrow , July 23, 2024. He told me that he feels by choosing hospice that that is
being 'selfish'. 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 He asked to speak to a customer care voice consultant. We did contact video game engineer's office at his request.
pt and family have now decided against hospice and that he wants to continue moving forward
07/30 had meeting with daughter, and ex---showed them the chest x-ray of his recurrent pleural effusion--again, stated that I do not believe he will be here next year at this time, that he will be dependent upon long-term and that he will never
go home--daughter replied, 'we are going to do what ever he wishes'
08/11--explained to patient that he has chosen to get better and move forward--therefore, he cannot refuse temps, lab draws, working with therapy etc....
disposition planning--refused by LTAC, refused by acute rehab-no Asept cath per insurance--SNF.... Case management reported that patient daughter does not want him to leave the hospital without having his surgery even if he is medically stable to do
so, they also have not provided case management the outpatient dialysis center that he was at prior to his being hospitalized at [facility]
I reviewed patient's PT and OT notes and he cannot even sit on the side of the bed--I do not believe that he is rehab able--I believe that he will be a long-term long-term resident, unfortunately
08/12/24 Daughter has refused multiple possible SNF options both with and without dialysis on site, having to pay for transportation to a hospital for weekly thoracentesis, etc as relayed to me by Case management--family meeting to be held 08/13/24
family meeting with daughter and son-in-law, and workers compensation consultant (Elba Shore and Oliva Shore) 08/13/24--- reviewed that despite being chronically ill that he is medically stable for discharge to the next level of care--daughter and son-in-law had angst
regarding which facility he would go to as the daughter needed to feel 'safe' when she visited him and that he would be taken care of properly. Explained that she would like onsite dialysis and those facilities generally seem to be less desirable
than facilities where he would need to leave the facility and go for dialysis at a dialysis center. She had adamantly opposed that idea in the past. In addition, he would need to leave the dialysis facility to get weekly thoracentesis, so leaving
to get dialysis may not be that much of a burden. Again, she refused. She also would like him closer to her so that she can visit and his grandchildren can visit. Based on all of the above information and conversations that were had, I have
agreed to keep the patient until Saturday, August 17, 2024 in order for her to view and visit the facility she may be interested in. I would not put the discharge order in today. If he remains medically stable for discharge, the discharge order will
go in Saturday, August 17, 2024. Patient's son-in-law then stated that they would like to have until next Monday, August 19, 2024 to review these facilities. I politely told him the answer would be no. Elba also indicated that if he is medically
stable when the discharge order is placed, he would need to take the first available bed. They were given information that they could appeal the discharge if they felt that strongly about not taking the first available bed. They were also given
information that they would be charged if the appeal ruled in our favor as opposed to theirs and the patient remained in the hospital.
time spent 60 minutes
Original Note:
Today's Communication/Plan
-
Patient is medically stable for discharge to SNF. . Family meeting today.
Assessment / Plan
Assessment / Plan
1. Acute hypoxic respiratory failure, ventilator dependent respiratory failure, s/p PEA/cardiac arrest (resolved)
-patient had episode of mucous plugging with respiratory arrest. Patient was bradycardic at that time and likely added to the problem.
-Patient require ventilator support and was able to be extubated
-Dyspnea has improved with x6 with thoracentesis.
-Remains at high risk of decompensation and further respiratory problems
-CXR (08/10): trace pleural fluid, mild atelectasis and interval improvement in mild interstitial edema
-Consider repeat CXR today pending attending review.
2. Hypercalcemia/parathyroid adenoma/secondary hyperparathyroidism
-patient has significant hypercalcemia and likely secondary to ESRD/secondary hyperparathyroidism and parathyroid adenoma found on imaging.
Parathyroid hormone close to 1000. Patient has been maximized on Cinacalcet and also has been provided calcitonin/bisphosphonates.
In light of refractory nature of hypercalcemia surgery has been consulted, patient is a candidate for minimally invasive parathyroidectomy once pulmonary status stabilizes
--underwent successful minimally invasive parathyroidectomy on 08/04. --PTH level has been dropping down --discussed with nephrology and recommended to discontinue further Cinacalcet for time being
--patient was having some bleeding at surgical site and was provided tranexamic acid --calcium levels within NML range
3. Recurrent pleural effusion
--patient underwent right-sided thoracentesis of 1.1 L--And left-sided thoracentesis of 1450ml, 1750 ml, 750ml, 1600ml, 1150ml, 700ml--
--A Pleurx catheter was planned although insurance approval did not come through
-- will need weekly thoracentesis set up, seems to recur in less than 1 week, there is question if patient will be a candidate for chemical pleurodesis although patient
--does not want to go through any painful procedure and has been postponed for now
--patient effusion is also getting pseudo exudative based on last pleural fluid analysis.
--Interventional radiology consulted and drained 800 cc of pleural fluid on 08/08 -fluid collection slowing down possibly. may require less frequent thoracentesis
--CXR (08/10): trace pleural effusions bilaterally
--Will need weekly thoracocenteses
4. Left mainstem bronchus obstruction, recurrent aspiration -patient have increased secretion and potential for recurrent bronchus obstruction and related complication-- pulmonary toileting--aspiration risk
5. Leukocytosis/hypothermia--resolved -- likely aspiration pneumonitis--finished 5 days of Unasyn
6. New onset GI bleed on 07/27-- resolved -- pt does not want workup, GI said would be high risk--follow HGB--cont PPI--apprec GI
7. hiccups--resolved.
8. NSTEMI -patient was managed conservatively and has finished few days of heparin drip therapy. Echocardiogram showing ejection fraction of 50 to 55%.
9. Diastolic heart failure exacerbation -patient volume status being managed by hemodialysis, patient makes some urine
10. Hx CVA w L hemiparesis, dysarthria, dysphagia-- cont tube feeding
11. ESRD on MWF HD--apprec renal; dialysis today
anemia of chronic disease- transfused 2 unit pRBCs. monitor periodically. Appropriate rise in Hb s/p 1 u prbc; Hb stable today
Severe calcific atherosclerotic plaque in the coronary arteries on CT Chest
Right chronically impacted humeral neck fracture -imaging finding on CT chest, needs to be verified with previous records
protein calorie malnutrition--cachectic, stage 2 pressure wound--on tube feeds--feel at least moderate if not severe
sacrum stage 2 pressure injury--cont local wound care---unclear to me if POA
Hyponatremia
Essential Hypertension
Hyperlipidemia
Carotid artery disease s/p R CEA
BPH
Depression
code status--DNI--wants chest compressions
Diet: Tube Feeds (Nepro w/ Carb Steady)
Patient is medically stable for discharge to SNF.
Anticipated Discharge: Today
Subjective/Interval History
-
Date of Service: August 13, 2024
Patient seen and examined while resting comfortably in bed. Brother is at bedside, just came down from [place] today. Patient extra conversive this a.m. with brother at bedside. No acute complaints. States he has mild episodes of on and off
shortness of breath and residual cough that usually resolves. Continues to saturate 98-100% throughout the day/night.
Objective Data
-
Labs:
Laboratory Results
08/13/24
07:36
WBC Pending
Hgb Pending
Hct Pending
Plt Count Pending
Sodium Pending
Potassium Pending
Chloride Pending
Carbon Dioxide Pending
BUN Pending
Creatinine Pending
Glucose Pending
Calcium Pending
Vital Signs:
Vital Signs
Temp Pulse Resp BP Pulse Ox
97.6 F 77 18 157/88 99
08/12/24 23:00 08/12/24 23:00 08/12/24 23:00 08/12/24 23:00 08/12/24 23:00
I&O
08/12/24 08/13/24 08/14/24
06:59 06:59 06:59
Intake Total 900 / 900
Output Total 400 / 400
Balance 500 / 500
Review of Systems
-
History Source: Patient
Constitutional: Reports No Symptoms
Respiratory: Reports No Symptoms
Abdomen/GI: Reports No Symptoms
Neuro: Reports No Symptoms
Physical Exam
-
General: No Apparent Distress, Comfortable and Conversant
HEENT: Normocephalic, Atraumatic and Moist Mucous Membranes
Respiratory: Clear to Auscultation and Decreased Breath Sounds (Left lung, improved from previous, however still mildly decreased closer to bases); Negative Wheezes, Rales or Rhonchi
Cardiac: Regular Rhythm and S1/S2
GI: Soft
Musculoskeletal: No Clubbing, No Cyanosis and No Edema
Skin: Warm and Dry
Neuro: Awake, Alert, Oriented and Nonfocal/Grossly Intact
Psych: Calm
Data Reviewed
-
Labs: Labs Reviewed by me
[2024-08-13] MEDS: WELLBUTRIN REGULAR RELEASE 150 MG TUBE ×2 (08:21→19:24)
[2024-08-13] MEDS: FOLVITE 1 MG TUBE (08:21)
[2024-08-13] MEDS: ROXICODONE 5 MG TUBE (08:21)
[2024-08-13] MEDS: VISBIOME 1 CAP TUBE (08:21)
[2024-08-13] MEDS: PROTONIX IV 40 MG IV ×2 (08:22→19:25)
[2024-08-13] MEDS: LOW STRENGTH ASPIRIN 81 MG TUBE (08:22)
[2024-08-13] MEDS: HEPARIN 5000 UNITS SC ×2 (08:22→19:25)
[2024-08-13] MEDS: NSS (PRESERVATIVE FREE) 10 ML IV ×2 (08:22→19:24)
[2024-08-13 08:24] LABS: Hematocrit 28.5 % (39.0-52.0); Hemoglobin 9.3 g/dL (13.0-18.0); Mean Corp Hgb Conc. 32.6 g/dL (33.0-37.0); Mean Corpuscular Hgb 29.8 pg (27.0-31.0); Mean Corpuscular Volume 91.3 fL (80.0-94.0); Mean Platelet Volume 8.7 fL (7.4-10.4); Platelet Count 282 10^3/uL (130-400); Red Blood Cell Count 3.12 10^6/uL (4.70-6.10); Red Cell Dist. Width 16.7 % (11.5-14.5); White Blood Cell Count 8.9 10^3/uL (4.8-10.8)
[2024-08-13 08:50] LABS: Blood Urea Nitrogen 45 mg/dl (9-20); Carbon Dioxide 30 mmol/L (22-30); Chloride 100 mmol/L (98-107); Estimated Creatinine Clearance 25 ml/min; Glucose 123 mg/dl (70-99); Potassium 3.7 mmol/L (3.5-5.1); Sodium 137 mmol/L (135-145); eGFR 28.49
--- NOTE | 2024-08-13 10:17 | W.PN.NEPH.PH ---
Today's Communication / Plan
-
Dialysis tomorrow
Assessment/Plan
-
Impression:
ESRD MWF
Hypoxia/left lung atelectasis versus pneumonia
Large left pleural effusion s/p thoracentesis 06/21
CHF
Anemia
Hypertension hx
Hyponatremia
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
Hyperphosphatemia
PEG
Non-ST elevation NH
History of stroke with subsequent left hemiparesis dysarthria and dysphagia
Tunneled right HD IJ catheter
Chronic impacted right proximal humerus fracture
hypercalcemia
Plan:
HD tomorrow, orders provide
off sensipar as serum calcium now normalized following parathyroidectomy surgery 08/04
weekly thoracentesis as needed, unless another option is possible
Awaiting placement
-
-
Date of Service: August 13, 2024
CC / HPI / ROS
-
Chief Complaint:
ESRD
History of Present Illness:
hemodynamically stable
Hemodialysis on Saturday schedule
s/p PTX left adenoma 08/04 with serum calcium now normal
bp stable
Review of Systems:
mild sob intermittently , has cough seem chronic
No fever
on supplemental O2
PEG feeds on
Labs
-
Labs:
WBC 8.9 10^3/uL (4.8-10.8) 08/13/24 08:12
RBC 3.12 10^6/uL (4.70-6.10) L 08/13/24 08:12
Hgb 9.3 g/dL (13.0-18.0) L 08/13/24 08:12
Hct 28.5 % (39.0-52.0) L 08/13/24 08:12
Plt Count 282 10^3/uL (130-400) 08/13/24 08:12
Sodium 137 mmol/L (135-145) 08/13/24 08:12
Potassium 3.7 mmol/L (3.5-5.1) 08/13/24 08:12
Chloride 100 mmol/L (98-107) 08/13/24 08:12
Carbon Dioxide 30 mmol/L (22-30) 08/13/24 08:12
BUN 45 mg/dl (9-20) H 08/13/24 08:12
Creatinine 2.4 mg/dL (0.7-1.3) H 08/13/24 08:12
eGFR 28.49 08/13/24 08:12
Glucose 123 mg/dl (70-99) H 08/13/24 08:12
Calcium 9.0 mg/dl (8.4-10.2) 08/13/24 08:12
Phosphorus 4.7 mg/dl (2.5-4.5) H 08/10/24 07:52
Hsn-X-Vyunkisrmru Pept > 65790 pg/ml 06/20/24 18:13
Albumin 3.6 g/dl (3.5-5.0) 08/12/24 12:34
Physical Exam
-
Vital Signs:
Vital Signs
Temp Pulse Resp BP Pulse Ox
97.8 F 87 16 143/82 100
08/13/24 07:10 08/13/24 07:10 08/13/24 07:10 08/13/24 07:10 08/13/24 07:10
Cardiovascular:: Regular rate and rhythm
Respiratory:: Bilateral: Coarse
Lung Excursion:: Normal
Abdomen:: Nontender and Soft
Extremity Edema:: None: Bilateral:
Bender Catheter: No
[2024-08-13 11:57] LABS: Glucose - Point of Care 101 mg/dl (70-99)
--- NOTE | 2024-08-13 12:00 | WOUNDNOTE ---
L 2ND TOE (DORSAL)
--- NOTE | 2024-08-13 12:57 | WOUNDNOTE ---
[facility] RN note: Patient is on a [employer] air bed. Patient's L posterior heel with red ecchymotic area, stage 1 appearing. Sacral/coccyx with small dry scab, newly healed vs almost healed stage 2 pressure injury vs MASD. Patient incontinent of loose
stool. Cynthia care given. Sacral shaped silicone border foam changed on sacral/coccyx. Calazime ointment applied to scrotal pinpoint scab and newly healed penis tip ulcer. Foam dressing changed on L heel. R heel with dry scabbed skin fissure, L dorsal
2nd toe with dry scabbed abrasion (not new). TruVue lite boots reapplied. Patient turned to R semi side lying position. Instructed patient importance of off loading sacrum with turning and off loading heels. Discussed with RODRIGO Ortega. Will follow as
needed.
--- NOTE | 2024-08-13 13:31 | CM ---
Patient seen at bedside today with physician, patient daughter and son in law on . Patient updated with family on status as medically stable and reviewed options for discharge. Patient and daughter declined [facility] based on information
from [facility] per patient daughter. CM provided list of SNF options that referrals had been sent to and patient daughter expressed interest in [facility], [facility], [facility] Updated Referrals sent to the above facilities
by CM colleague. Patient and daughter were given IMM form to review and per physician discharge order to be placed Saturday, pending patient continued status as stable per physician. Patient daughter and updated regarding [facility] appeal
process and outcome possibilities including patient charge. Patient daughter and son in law indicated that they were looking for the best option for patient and did not want patient daughter to be stressed about patient care. All in agreement that a
bed needed to be confirmed for patient to be transferred to next level of care immediately and daughter agreed to call to facilities that had expressed interest so that she could discuss costs for transfer to HD as well as any other costs for
patient care, including thoracentesis if needed. CM will continue to follow for discharge planning needs.
Plan; SNF
[2024-08-13 15:05] VITALS: BP 157/92
[2024-08-13 15:10] VITALS: BP 157/92; PULSE 90
[2024-08-13 15:57] VITALS: BP 157/92; PULSE 90
[2024-08-13 17:56] LABS: Glucose - Point of Care 108 mg/dl (70-99)
[2024-08-13] MEDS: CRESTOR 20 MG TUBE (18:16)
[2024-08-13] MEDS: MORPHINE SULFATE 0.5 MG IV (21:04)
[2024-08-13] MEDS: COZAAR 25 MG TUBE (21:28)
[2024-08-13] MEDS: MELATONIN 5 MG TUBE (22:41)
[2024-08-13 23:00] VITALS: BP 151/93
[2024-08-13 23:57] LABS: Glucose - Point of Care 105 mg/dl (70-99)
[2024-08-14 05:01] LABS: Glucose - Point of Care 97 mg/dl (70-99)
[2024-08-14 06:00] VITALS: BMI 18.0
[2024-08-14 07:20] VITALS: BP 171/84
[2024-08-14 08:16] LABS: Hematocrit 28.7 % (39.0-52.0); Hemoglobin 9.3 g/dL (13.0-18.0)
[2024-08-14 08:49] LABS: Chloride 100 mmol/L (98-107); Potassium 3.7 mmol/L (3.5-5.1); Sodium 138 mmol/L (135-145)
[2024-08-14] MEDS: RETACRIT 10000 UNITS IV (08:53)
[2024-08-14 08:58] LABS: Carbon Dioxide 29 mmol/L (22-30)
[2024-08-14] MEDS: NSS (PRESERVATIVE FREE) 10 ML IV ×2 (09:41→20:05)
[2024-08-14] MEDS: PROTONIX IV 40 MG IV ×2 (09:41→20:05)
[2024-08-14] MEDS: HEPARIN 5000 UNITS SC ×2 (09:41→20:05)
[2024-08-14 09:46] VITALS: BP 151/102
[2024-08-14] MEDS: HEPARIN 3800 UNITS INTRACATH (11:23)
--- NOTE | 2024-08-14 11:25 | W.PN.NEPH.HD ---
Assessment
-
pt seen during HD
vitals stable
CVC functions fine
[facility]
Progress Note - Hemodialysis
-
Date of Service: August 14, 2024
Duration: 30 minutes and 3 hours
Potassium Bath: 3
Calcium Bath: 2.5
Opti-Dialyzer: 160
Ultrafiltration: Other (1.5-2kg)
Blood Flow: 400
Dialysate Flow: 600
Heparin: no
EPO: [id number]
--- NOTE | 2024-08-14 11:37 | CM ---
Addendum entered by Maria Del Carmen Dee 08/14/24 16:24:
Spoke with Tamica at [facility] [phone], she has received all the clinical information and [facility] is reviewing for acceptance. patients HD days may need to be changed to , Tamica will let us know Saturday.
Addendum entered by Maria Del Carmen Dee 08/14/24 15:34:
TC from Daughter Tawnya, she spoke with Tamica from [facility].
Per Tawnya, Tamica from [facility] recommended [facility] and anticipated bed mid to end of next week.
TC to [facility] Re[facility] liaison for [facility] [phone] no bed available, potential bed later next week. Would consider transferring to outpatient center if able to go via , however patient would need ambulance transport. CM will fax clinicals to
Isabella at [phone], she will review and let us know when and if bed available.
Daughter is still interested in [facility] as 2nd choice. left for Tamica at [facility].
This information was provided by patients daughter:
Per Tawnya (daughter) she spoke with [facility] and ambulance transport will be covered for thoracentesis as long as medically necessary. MD would need to to fill out a medical necessity form with the time frame and why the transport is medically
necessary. Family would be responsible for copays approx [address] precert# [phone].
Addendum entered by Maria Del Carmen Dee 08/14/24 13:09:
TC to patients daughter, she is not sure she wants [facility]. She has reached out to [facility] and is awaiting a call back. CM explained to daughter [facility] accepted the [facility] and they can offer on-site HD. Also aware she will need to
pay for transportation for weekly thoracentesis if required. Requested daughter let CM know gustavo as patient will require an insurance authorization prior to transfer. Per daughter she will need to discuss with family and will likely tour [facility],
but will not be able to give an answer until Saturday. Daughter also aware the plan is for d/c orders to be placed Saturday if patient remains medically stable. MD updated.
Addendum entered by Maria Del Carmen Dee 08/14/24 12:00:
TC from Tamica at [facility]. They can offer a bed Saturday. Will forward HD packet/information to fax# [phone]. Patient will require insurance auth once [facility] accepts.
Original Note:
Spoke with Tamica from [facility]- she will review case again. There is possible HD chair available on Saturday but not sure if they can handle medical complexity- weekly thoracocentesis or will be able to accept.
TC with Manisha from [facility] ([facility] and [facility]). She has had multiple discussions with the daughter and explained, due to the medical complexity- weekly thoracentesis it is not feasible for the facility to accept. Costs of
ambulance transport back and forth to a medical facility for thoracentesis and cost of the procedure itself would be coming out of the alf pocket (or private pay by family). Even if the facility was looking at taking patient, the Daughter
would need to provide financials and bank statements to see if patient would quality for medicaid. If the patient did qualify for medicaid, the weekly thoracentesis and transportation costs still would not be covered. Manisha invited the daughter to
speak with Renetta from their business office who could go over the financial problems and concerns. Unfortunately at this time, the [facility] facilities are unable to accept.
[2024-08-14 11:41] LABS: Glucose - Point of Care 103 mg/dl (70-99)
[2024-08-14] MEDS: FOLVITE 1 MG TUBE (12:34)
[2024-08-14] MEDS: WELLBUTRIN REGULAR RELEASE 150 MG TUBE ×2 (12:34→20:05)
[2024-08-14] MEDS: LOW STRENGTH ASPIRIN 81 MG TUBE (12:34)
[2024-08-14] MEDS: VISBIOME 1 CAP TUBE (12:34)
--- NOTE | 2024-08-14 13:04 | W.PN.HOSP.TC ---
Today's Communication/Plan
-
.
Assessment / Plan
Assessment / Plan
1. Acute hypoxic respiratory failure, ventilator dependent respiratory failure, s/p PEA/cardiac arrest (resolved)
-patient had episode of mucous plugging with respiratory arrest. Patient was bradycardic at that time and likely added to the problem.
-Patient require ventilator support and was able to be extubated
-Dyspnea has improved with x6 with thoracentesis.
-Remains at high risk of decompensation and further respiratory problems
-CXR (08/10): trace pleural fluid, mild atelectasis and interval improvement in mild interstitial edema
2. Hypercalcemia/parathyroid adenoma/secondary hyperparathyroidism
-patient has significant hypercalcemia and likely secondary to ESRD/secondary hyperparathyroidism and parathyroid adenoma found on imaging.
Parathyroid hormone close to 1000. Patient has been maximized on Cinacalcet and also has been provided calcitonin/bisphosphonates.
In light of refractory nature of hypercalcemia surgery has been consulted, patient is a candidate for minimally invasive parathyroidectomy once pulmonary status stabilizes
--underwent successful minimally invasive parathyroidectomy on 08/04. --PTH level has been dropping down --discussed with nephrology and recommended to discontinue further Cinacalcet for time being
--patient was having some bleeding at surgical site and was provided tranexamic acid --calcium levels within NML range
3. Recurrent pleural effusion
--patient underwent right-sided thoracentesis of 1.1 L--And left-sided thoracentesis of 1450ml, 1750 ml, 750ml, 1600ml, 1150ml, 700ml--
--A Pleurx catheter was planned although insurance approval did not come through
-- will need weekly thoracentesis set up, seems to recur in less than 1 week, there is question if patient will be a candidate for chemical pleurodesis although patient
--does not want to go through any painful procedure and has been postponed for now
--patient effusion is also getting pseudo exudative based on last pleural fluid analysis.
--Interventional radiology consulted and drained 800 cc of pleural fluid on 08/08 -fluid collection slowing down possibly. may require less frequent thoracentesis
--CXR (08/10): trace pleural effusions bilaterally
--Will likely need intermittent thoracocentesis, though frequency seems to be decreasing
4. Left mainstem bronchus obstruction, recurrent aspiration -patient have increased secretion and potential for recurrent bronchus obstruction and related complication-- pulmonary toileting--aspiration risk
5. Leukocytosis/hypothermia--resolved -- likely aspiration pneumonitis--finished 5 days of Unasyn
6. New onset GI bleed on 07/27-- resolved -- pt does not want workup, GI said would be high risk--follow HGB--cont PPI--apprec GI
7. hiccups--resolved.
8. NSTEMI -patient was managed conservatively and has finished few days of heparin drip therapy. Echocardiogram showing ejection fraction of 50 to 55%.
9. Diastolic heart failure exacerbation -patient volume status being managed by hemodialysis, patient makes some urine
10. Hx CVA w L hemiparesis, dysarthria, dysphagia-- cont tube feeding
11. ESRD on MWF HD--apprec renal; dialysis today
anemia of chronic disease- monitor periodically. additional 1U 08/12; total of 3U over course of admission
Severe calcific atherosclerotic plaque in the coronary arteries on CT Chest
Right chronically impacted humeral neck fracture -imaging finding on CT chest, needs to be verified with previous records
protein calorie malnutrition--cachectic, stage 2 pressure wound--on tube feeds--feel at least moderate if not severe
sacrum stage 2 pressure injury--cont local wound care---unclear to me if POA
Hyponatremia
Essential Hypertension
Hyperlipidemia
Carotid artery disease s/p R CEA
BPH
Depression
code status--DNI--wants chest compressions
Diet: Tube Feeds (Nepro w/ Carb Steady)
Dispo planning: Hep B serology pending
Patient is medically stable for discharge to SNF.
Anticipated Discharge: Today
Subjective/Interval History
-
Date of Service: August 14, 2024
Patient seen and examined resting comfortably in bed, right after dialysis. Patient with no acute complaints this a.m.
Objective Data
-
Labs:
Laboratory Results
08/14/24
07:44
Hgb 9.3 L
Hct 28.7 L
Sodium 138
Potassium 3.7
Chloride 100
Carbon Dioxide 29
Vital Signs:
Vital Signs
Temp Pulse Resp BP Pulse Ox
97.6 F 81 16 151/102 98
08/14/24 07:20 08/14/24 09:46 08/14/24 07:20 08/14/24 09:46 08/14/24 07:20
I&O
08/13/24 08/14/24 08/15/24
06:59 06:59 06:59
Intake Total 900 / 900 1800 / 1800
Output Total 400 / 400
Balance 500 / 500 1800 / 1800
Review of Systems
-
History Source: Patient
Constitutional: Reports No Symptoms
Respiratory: Reports No Symptoms
Cardiac: Reports No Symptoms
Neuro: Reports No Symptoms
Physical Exam
-
General: No Apparent Distress, Comfortable and Cachectic
HEENT: Normocephalic and Atraumatic
Respiratory: Clear to Auscultation; Negative Wheezes, Rales or Rhonchi
Cardiac: Regular Rhythm and S1/S2
GI: Soft
Musculoskeletal: No Clubbing, No Cyanosis and No Edema
Skin: Warm
Neuro: Awake, Alert and Oriented
Psych: Calm
Data Reviewed
-
Labs: Labs Reviewed by me
[2024-08-14 13:32] LABS: Hepatitis B Surface Antigen Negative (Negative)
[2024-08-14 15:32] VITALS: BP 138/90
[2024-08-14 17:20] LABS: Glucose - Point of Care 101 mg/dl (70-99)
[2024-08-14] MEDS: CRESTOR 20 MG TUBE (17:26)
[2024-08-14 17:40] LABS: Hepatitis B Surface Antibody Indeterminate
[2024-08-14] MEDS: MORPHINE SULFATE 0.5 MG IV (19:56)
--- NOTE | 2024-08-14 21:04 | VATNOTE ---
VAT asked to change patient's HDC dressing as he was picking at it and peeled the tape off. Dressing not covering HDC upon arrival, patient reports he likes scratch the dressing. HDC intact and skin normal color around site however skin around the
left suture appears red with yellow crust. Site thoroughly cleaned, sterile dressing placed with bio patch. Primary RN at bedside. Will continue to monitor.
[2024-08-14] MEDS: MELATONIN 5 MG TUBE (21:51)
[2024-08-14] MEDS: XANAX 0.25 MG TUBE (21:51)
[2024-08-14 23:44] VITALS: BP 123/79
[2024-08-15 00:13] LABS: Glucose - Point of Care 94 mg/dl (70-99)
[2024-08-15 06:25] LABS: Glucose - Point of Care 87 mg/dl (70-99)
[2024-08-15 07:30] VITALS: BP 148/83
--- NOTE | 2024-08-15 09:12 | W.PN.HOSP.TC ---
Today's Communication/Plan
-
pt is medically stable and ready for d/c to next level SNF
Assessment / Plan
Assessment / Plan
pt is a 69 year old male
pt is medically stable and ready for d/c to next level SNF
Acute hypoxic respiratory failure, ventilator dependent respiratory failure, s/p PEA/cardiac arrest -patient had episode of mucous plugging with respiratory arrest. Patient was bradycardic at that time and likely added to the problem. Patient
require ventilator support and was able to be extubated--back on O2--Dyspnea has improved with 8 thoracentesis (7 left and 1 right). Remains at high risk of decompensation and further respiratory problems--
Hypercalcemia/parathyroid adenoma/primary hyperparathyroidism-- parathyroid adenoma found on imaging. Parathyroid hormone close to 1000. Patient has been maximized on Cinacalcet and also has been provided calcitonin/bisphosphonates. In light of
refractory nature of hypercalcemia surgery has been consulted, patient is a candidate for minimally invasive parathyroidectomy once pulmonary status stabilizes-- s/p surgery for parathyroid 08/04/24--had 7 gm adenoma removed--calcium returned to
normal
Left mainstem bronchus obstruction, recurrent aspiration -patient has increased secretions and potential for recurrent bronchus obstruction and related complication-- pulmonary toileting--aspiration risk
Leukocytosis/hypothermia--likely aspiration pneumonitis--finished 5 days of Unasyn
New onset GI bleed on 07/27--pt does not want workup, GI said would be high risk--follow HGB, s/p 3 units of pRBC total this admission--cont PPI--apprec GI--resolved
Recurrent pleural effusion--patient underwent right-sided thoracentesis of 1.1 L--And left-sided thoracentesis of 1450ml, 1750 ml, 750ml, 1600ml, 1150ml, 700ml, 800mls-- A Pleurx catheter was planned although insurance approval did not come
through-- will need weekly thoracentesis set up
hiccups--adding PRN thorazine--seems resolved
NSTEMI -patient was managed conservatively-- Echocardiogram showing ejection fraction of 50 to 55%.
Diastolic heart failure exacerbation -patient volume status being managed by hemodialysis, patient makes some urine--recurrent pleural effusions not controlled with HD, now pseudo-exudative
Hx CVA w L hemiparesis, dysarthria, dysphagia-- cont tube feeding
ESRD on MWF HD--apprec renal
anemia of chronic disease- transfused 3 total unit pRBCs during this admission
Severe calcific atherosclerotic plaque in the coronary arteries on CT Chest
Right chronically impacted humeral neck fracture -imaging finding on CT chest, needs to be verified with previous records
protein calorie malnutrition--cachectic, stage 2 pressure wound--on tube feeds--feel at least moderate if not severe
sacrum stage 2 pressure injury, now with DTI of heel as per nursing--cont local wound care---unclear to me if POA
Hyponatremia
Essential Hypertension
Hyperlipidemia
Carotid artery disease s/p R CEA
BPH
Depression
code status--back to limited DNI--wants chest compressions--
patient very frustrated with the fact that his fluid has reaccumulated and needs another tap--seems frustrated by the entire medical condition--07/19/24 started conversation about Pleurx catheter, weekly thoracentesis, 3 times per week dialysis, tube
feedings, severe debilitation and needing rehab, upcoming surgery for parathyroidectomy and explained to patient that if he feels he cannot go on any further or does not want to keep moving forward that hospice is a viable option. Also explained
that there would be no need to make that decision immediately but that he should think about it and talk with his family. Only he can decide what he is willing to put up with and for how long regarding his debilitation.
Had approximately 45-minute conversation by phone on July 20, 2024 with patient's daughter and patient's ex---explained conversation that I started with the patient Wednesday 07/19 regarding hospice and what he is willing to put up with, medical
conditions currently, upcoming surgery, general debilitation and the fact that he has been hospitalized here for approximately 1 month. They explained that he was at [facility] from February to April of this year, then went to rehab, and
now here. Explained that in my medical opinion, I do not believe that he will be here next year at this time and that he is hospice appropriate. They then questioned the utility of the parathyroid surgery scheduled for tomorrow. At this time, we
will postpone surgery and have notified Dr. Stroud. They are in full agreement with having a rai conversation with the patient but do not wish to do so until July 30 when they are available to be here bedside and speak in person. I did ask if they
were able to come in sooner than July 30 to which the reply was no.
Came to see patient on rounds on 07/21 and he was on the phone with his daughter Tawnya. I started the conversation with the patient that I had with Tawnya and her mom on Thursday 07/20. I explained that I do not think that the patient will be here next
year at this time. I also told him that I do not think that he is rehab-able and that he will likely not get home and he will be in a correction long-term. Told the patient that I think meeting with hospice and having a rai discussion will be
another piece of the puzzle for him to make an informed decision about what he wants moving forward. I did explain that hospice is comfort focused. Patient was going to think about it and continue discussions with his family. They are still
anticipating coming in July 30 to have a discussion about options he may have.
07/22 asked patient again regarding what he thought about hospice, goals of care that we do spoke about. He stated that his daughter and are coming tomorrow , July 23, 2024. He told me that he feels by choosing hospice that that is
being 'selfish'. 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 He asked to speak to a manager income tax. We did contact inspector hot forgings's office at his request.
pt and family have now decided against hospice and that he wants to continue moving forward
07/30 had meeting with daughter, and ex---showed them the chest x-ray of his recurrent pleural effusion--again, stated that I do not believe he will be here next year at this time, that he will be dependent upon correction and that he will never
go home--daughter replied, 'we are going to do what ever he wishes'
08/11--explained to patient that he has chosen to get better and move forward--therefore, he cannot refuse temps, lab draws, working with therapy etc....
disposition planning--refused by LTAC, refused by acute rehab-no Asept cath per insurance--SNF.... Case management reported that patient daughter does not want him to leave the hospital without having his surgery even if he is medically stable to do
so, they also have not provided case management the outpatient dialysis center that he was at prior to his being hospitalized at [facility]
I reviewed patient's PT and OT notes and he cannot even sit on the side of the bed--I do not believe that he is rehab able--I believe that he will be a long-term correction resident, unfortunately
08/12/24 Daughter has refused multiple possible SNF options both with and without dialysis on site, having to pay for transportation to a hospital for weekly thoracentesis, etc as relayed to me by Case management--family meeting to be held 08/13/24
family meeting with daughter and son-in-law, and social work assistant (Elba Shore and Oliva Shore) 08/13/24--- reviewed that despite being chronically ill that he is medically stable for discharge to the next level of care--daughter and son-in-law had angst
regarding which facility he would go to as the daughter needed to feel 'safe' when she visited him and that he would be taken care of properly. Explained that she would like onsite dialysis and those facilities generally seem to be less desirable
than facilities where he would need to leave the facility and go for dialysis at a dialysis center. She had adamantly opposed that idea in the past. In addition, he would need to leave the dialysis facility to get weekly thoracentesis, so leaving
to get dialysis may not be that much of a burden. Again, she refused. She also would like him closer to her so that she can visit and his grandchildren can visit. Based on all of the above information and conversations that were had, I have
agreed to keep the patient until Saturday, August 17, 2024 in order for her to view and visit the facility she may be interested in. I would not put the discharge order in today. If he remains medically stable for discharge, the discharge order will
go in Saturday, August 17, 2024. Patient's son-in-law then stated that they would like to have until next Monday, August 19, 2024 to review these facilities. I politely told him the answer would be no. Elba also indicated that if he is medically
stable when the discharge order is placed, he would need to take the first available bed. They were given information that they could appeal the discharge if they felt that strongly about not taking the first available bed. They were also given
information that they would be charged if the appeal ruled in our favor as opposed to theirs and the patient remained in the hospital.
Anticipated Discharge: Today
Subjective/Interval History
-
Date of Service: August 15, 2024
pt in brighter spirits
Objective Data
-
Vital Signs:
max temp for 24 hours
08/14/24
23:44
Temp 97.8 F
Vital Signs
Temp Pulse Resp BP Pulse Ox
98.5 F 75 18 148/83 99
08/15/24 07:30 08/15/24 07:30 08/15/24 07:30 08/15/24 07:30 08/15/24 07:30
I&O
08/14/24 08/15/24 08/16/24
06:59 06:59 06:59
Intake Total 1800 / 1800
Balance 1800 / 1800
Review of Systems
-
All other systems: Reviewed and negative
Physical Exam
-
General: Appears Chronically Ill and Cachectic
HEENT: Normocephalic and Atraumatic; Negative Oxygen
Respiratory: Decreased Breath Sounds (left base unchanged)
Cardiac: Regular Rhythm and S1/S2
GI: Soft, Nontender, Nondistended, Normal Bowel Sounds and Peg Tube
Genito-urinary: Costovertebral Angle Tend and No Costovertebral Tender
Musculoskeletal: No Clubbing, No Cyanosis and No Edema
Neuro: Awake and Alert
Psych: Calm
[2024-08-15] MEDS: FOLVITE 1 MG TUBE (09:17)
[2024-08-15] MEDS: WELLBUTRIN REGULAR RELEASE 150 MG TUBE ×2 (09:17→20:51)
[2024-08-15] MEDS: HEPARIN 5000 UNITS SC ×2 (09:18→20:51)
[2024-08-15] MEDS: NSS (PRESERVATIVE FREE) 10 ML IV ×2 (09:18→20:51)
[2024-08-15] MEDS: PROTONIX IV 40 MG IV ×2 (09:18→20:51)
[2024-08-15] MEDS: LOW STRENGTH ASPIRIN 81 MG TUBE (09:18)
[2024-08-15] MEDS: VISBIOME 1 CAP TUBE (09:20)
--- NOTE | 2024-08-15 10:42 | W.PN.NEPH.PH ---
Today's Communication / Plan
-
HD saturday
Assessment/Plan
-
Impression:
ESRD MWF
Hypoxia/left lung atelectasis versus pneumonia
Large left pleural effusion s/p thoracentesis 06/21
CHF
Anemia
Hypertension hx
Hyponatremia
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
Hyperphosphatemia
PEG
Non-ST elevation NV
History of stroke with subsequent left hemiparesis dysarthria and dysphagia
Tunneled right HD IJ catheter
Chronic impacted right proximal humerus fracture
hypercalcemia
Plan:
HD catheter anchoring suture site with mild erythema noted, no drainage currently
he seem to pick at the dressing and it need to be changed again
ok to cut sutures to clean the site as this is tunneled catheter and does not always need anchoring sutures
HD Saturday, noted possible TTS at [place]
off sensipar as serum calcium now normalized following parathyroidectomy surgery 08/04
weekly thoracentesis as needed, unless another option is possible
-
-
Date of Service: August 15, 2024
CC / HPI / ROS
-
Chief Complaint:
ESRD
History of Present Illness:
hemodynamically stable
Hemodialysis on Saturday schedule
s/p PTX left adenoma 08/04 with serum calcium now normal
bp stable
Review of Systems:
mild sob intermittently , has cough seem chronic
No fever
off supplemental O2
PEG feeds on
Labs
-
Labs:
WBC 8.9 10^3/uL (4.8-10.8) 08/13/24 08:12
RBC 3.12 10^6/uL (4.70-6.10) L 08/13/24 08:12
Hgb 9.3 g/dL (13.0-18.0) L 08/14/24 07:44
Hct 28.7 % (39.0-52.0) L 08/14/24 07:44
Plt Count 282 10^3/uL (130-400) 08/13/24 08:12
Sodium 138 mmol/L (135-145) 08/14/24 07:44
Potassium 3.7 mmol/L (3.5-5.1) 08/14/24 07:44
Chloride 100 mmol/L (98-107) 08/14/24 07:44
Carbon Dioxide 29 mmol/L (22-30) 08/14/24 07:44
BUN 45 mg/dl (9-20) H 08/13/24 08:12
Creatinine 2.4 mg/dL (0.7-1.3) H 08/13/24 08:12
eGFR 28.49 08/13/24 08:12
Glucose 123 mg/dl (70-99) H 08/13/24 08:12
Calcium 9.0 mg/dl (8.4-10.2) 08/13/24 08:12
Phosphorus 4.7 mg/dl (2.5-4.5) H 08/10/24 07:52
Fzm-[id number]-Dvkqgbwipoa Pept > 25619 pg/ml 06/20/24 18:13
Albumin 3.6 g/dl (3.5-5.0) 08/12/24 12:34
Physical Exam
-
Vital Signs:
Vital Signs
Temp Pulse Resp BP Pulse Ox
98.5 F 75 18 148/83 99
08/15/24 07:30 08/15/24 07:30 08/15/24 07:30 08/15/24 07:30 08/15/24 07:30
Cardiovascular:: Regular rate and rhythm
Respiratory:: Bilateral: Coarse
Lung Excursion:: Normal
Abdomen:: Nontender and Soft
Extremity Edema:: None: Bilateral:
Bender Catheter: No
Other Findings::
tunneled catheter site
mild redness at anchoring suture area, no drainage
--- NOTE | 2024-08-15 11:20 | VATNOTE ---
Called to check right hemodialysis dressing. Client had picked the dressing loose again. Strongly encouraged the client to not touch dressing and instructed about risk for infection in doing so. Site redressed. Sterile occlusive dressing applied
with biopatch after thoroughly cleansing area with chloraprep. Suture slightly pink at this time with no drainage noted. Primary care RN aware.
[2024-08-15 12:11] LABS: Glucose - Point of Care 106 mg/dl (70-99)
[2024-08-15 15:05] VITALS: BP 140/67
--- NOTE | 2024-08-15 15:21 | CM ---
Patient chart reviewed, CM called to weekend cell phone at [facility]; [phone]/ and [phone] to follow up on patient status. Pending HD acceptance per chart review. HD acceptance with [facility] pending, will try to call again. VM
left for admissions at [facility].
CM printed HepB results and will fax to [facility] as well. Per review with prior CM, daughter with questions about transportation to get thoracentesis CM to put medical necessity form on chart, and will call to Acute Care ramp and cargo supervisor to review
process for transfer via ambulance after discharge as patient daughter concerned about cost.
Patient will need auth for transfer, CM unable to start auth at this time, pending confirmation with [facility] re; acceptance for HD and bed availability. Per physician; patient for discharge pending medical stability, Saturday. CM will continue
to follow for discharge planning needs.
Plan; SNF pending bed availability
[2024-08-15] MEDS: CRESTOR 20 MG TUBE (18:03)
[2024-08-15] MEDS: COZAAR 25 MG TUBE (18:03)
[2024-08-15] MEDS: MIRALAX 17 GRAMS TUBE (18:04)
[2024-08-15 18:09] LABS: Glucose - Point of Care 107 mg/dl (70-99)
[2024-08-15] MEDS: XANAX 0.25 MG TUBE (20:50)
[2024-08-15] MEDS: ROXICODONE 5 MG TUBE (20:50)
[2024-08-15] MEDS: MELATONIN 5 MG TUBE (20:58)
[2024-08-15 23:10] VITALS: BP 142/81
[2024-08-16 00:15] LABS: Glucose - Point of Care 82 mg/dl (70-99)
[2024-08-16 04:59] LABS: % Basophils 1.3 % (0-2); % Eosinophils 15.7 % (0-6); % Immature Granulocytes 0.2 % (0-0.5); % Lymphocytes 15.5 % (20.5-51.1); % Monocytes 7.6 % (1.7-9.3); % Neutrophils 59.7 % (42.2-75.2); Absolute Basophils 0.2 10^3/uL (0-0.2); Absolute Eosinophils 1.9 10^3/uL (0-0.7); Absolute Lymphocytes 1.9 10^3/uL (1.2-3.4); Absolute Monocytes 0.9 10^3/uL (0.1-0.6); Absolute Neutrophils 7.2 10^3/uL (1.4-6.5); Hematocrit 32.6 % (39.0-52.0); Hemoglobin 10.6 g/dL (13.0-18.0); Mean Corp Hgb Conc. 32.5 g/dL (33.0-37.0); Mean Corpuscular Hgb 29.8 pg (27.0-31.0); Mean Corpuscular Volume 91.6 fL (80.0-94.0); Mean Platelet Volume 8.8 fL (7.4-10.4); Nucleated Red Blood Cells % 0 % (-); Platelet Count 310 10^3/uL (130-400); Red Blood Cell Count 3.56 10^6/uL (4.70-6.10); Red Cell Dist. Width 16.7 % (11.5-14.5)
[2024-08-16 06:00] VITALS: BMI 17.9
[2024-08-16 06:12] LABS: Glucose - Point of Care 86 mg/dl (70-99)
--- NOTE | 2024-08-16 08:31 | W.PN.HOSP.TC ---
Today's Communication/Plan
-
stable for d/c
Assessment / Plan
Assessment / Plan
pt is a 69 year old male
pt is medically stable and ready for d/c to next level SNF
no changes to note below
Acute hypoxic respiratory failure, ventilator dependent respiratory failure, s/p PEA/cardiac arrest -patient had episode of mucous plugging with respiratory arrest. Patient was bradycardic at that time and likely added to the problem. Patient
require ventilator support and was able to be extubated--back on O2--Dyspnea has improved with 8 thoracentesis (7 left and 1 right). Remains at high risk of decompensation and further respiratory problems--
Hypercalcemia/parathyroid adenoma/primary hyperparathyroidism-- parathyroid adenoma found on imaging. Parathyroid hormone close to 1000. Patient has been maximized on Cinacalcet and also has been provided calcitonin/bisphosphonates. In light of
refractory nature of hypercalcemia surgery has been consulted, patient is a candidate for minimally invasive parathyroidectomy once pulmonary status stabilizes-- s/p surgery for parathyroid 08/04/24--had 7 gm adenoma removed--calcium returned to
normal
Left mainstem bronchus obstruction, recurrent aspiration -patient has increased secretions and potential for recurrent bronchus obstruction and related complication-- pulmonary toileting--aspiration risk
Leukocytosis/hypothermia--likely aspiration pneumonitis--finished 5 days of Unasyn
New onset GI bleed on 07/27--pt does not want workup, GI said would be high risk--follow HGB, s/p 3 units of pRBC total this admission--cont PPI--apprec GI--resolved
Recurrent pleural effusion--patient underwent right-sided thoracentesis of 1.1 L--And left-sided thoracentesis of 1450ml, 1750 ml, 750ml, 1600ml, 1150ml, 700ml, 800mls-- A Pleurx catheter was planned although insurance approval did not come
through-- will need weekly thoracentesis set up
hiccups--adding PRN thorazine--seems resolved
NSTEMI -patient was managed conservatively-- Echocardiogram showing ejection fraction of 50 to 55%.
Diastolic heart failure exacerbation -patient volume status being managed by hemodialysis, patient makes some urine--recurrent pleural effusions not controlled with HD, now pseudo-exudative
Hx CVA w L hemiparesis, dysarthria, dysphagia-- cont tube feeding
ESRD on MWF HD--apprec renal
anemia of chronic disease- transfused 3 total unit pRBCs during this admission
Severe calcific atherosclerotic plaque in the coronary arteries on CT Chest
Right chronically impacted humeral neck fracture -imaging finding on CT chest, needs to be verified with previous records
protein calorie malnutrition--cachectic, stage 2 pressure wound--on tube feeds--feel at least moderate if not severe
sacrum stage 2 pressure injury, now with DTI of heel as per nursing--cont local wound care---unclear to me if POA
Hyponatremia
Essential Hypertension
Hyperlipidemia
Carotid artery disease s/p R CEA
BPH
Depression
code status--back to limited DNI--wants chest compressions--
patient very frustrated with the fact that his fluid has reaccumulated and needs another tap--seems frustrated by the entire medical condition--07/19/24 started conversation about Pleurx catheter, weekly thoracentesis, 3 times per week dialysis, tube
feedings, severe debilitation and needing rehab, upcoming surgery for parathyroidectomy and explained to patient that if he feels he cannot go on any further or does not want to keep moving forward that hospice is a viable option. Also explained
that there would be no need to make that decision immediately but that he should think about it and talk with his family. Only he can decide what he is willing to put up with and for how long regarding his debilitation.
Had approximately 45-minute conversation by phone on July 20, 2024 with patient's daughter and patient's ex---explained conversation that I started with the patient Wednesday 07/19 regarding hospice and what he is willing to put up with, medical
conditions currently, upcoming surgery, general debilitation and the fact that he has been hospitalized here for approximately 1 month. They explained that he was at [facility] from February to April of this year, then went to rehab, and
now here. Explained that in my medical opinion, I do not believe that he will be here next year at this time and that he is hospice appropriate. They then questioned the utility of the parathyroid surgery scheduled for tomorrow. At this time, we
will postpone surgery and have notified Dr. Stroud. They are in full agreement with having a rai conversation with the patient but do not wish to do so until July 30 when they are available to be here bedside and speak in person. I did ask if they
were able to come in sooner than July 30 to which the reply was no.
Came to see patient on rounds on 07/21 and he was on the phone with his daughter Tawnya. I started the conversation with the patient that I had with Tawnya and her mom on Thursday 07/20. I explained that I do not think that the patient will be here next
year at this time. I also told him that I do not think that he is rehab-able and that he will likely not get home and he will be in a shelter long-term. Told the patient that I think meeting with hospice and having a rai discussion will be
another piece of the puzzle for him to make an informed decision about what he wants moving forward. I did explain that hospice is comfort focused. Patient was going to think about it and continue discussions with his family. They are still
anticipating coming in July 30 to have a discussion about options he may have.
07/22 asked patient again regarding what he thought about hospice, goals of care that we do spoke about. He stated that his daughter and are coming tomorrow , July 23, 2024. He told me that he feels by choosing hospice that that is
being 'selfish'. He wants to be true to his [employer] teaching. He asked to speak to a guest service representative. We did contact duplicate maker's office at his request.
pt and family have now decided against hospice and that he wants to continue moving forward
07/30 had meeting with daughter, and ex---showed them the chest x-ray of his recurrent pleural effusion--again, stated that I do not believe he will be here next year at this time, that he will be dependent upon shelter and that he will never
go home--daughter replied, 'we are going to do what ever he wishes'
08/11--explained to patient that he has chosen to get better and move forward--therefore, he cannot refuse temps, lab draws, working with therapy etc....
disposition planning--refused by LTAC, refused by acute rehab-no Asept cath per insurance--SNF.... Case management reported that patient daughter does not want him to leave the hospital without having his surgery even if he is medically stable to do
so, they also have not provided case management the outpatient dialysis center that he was at prior to his being hospitalized at [facility]
I reviewed patient's PT and OT notes and he cannot even sit on the side of the bed--I do not believe that he is rehab able--I believe that he will be a long-term shelter resident, unfortunately
08/12/24 Daughter has refused multiple possible SNF options both with and without dialysis on site, having to pay for transportation to a hospital for weekly thoracentesis, etc as relayed to me by Case management--family meeting to be held 08/13/24
family meeting with daughter and son-in-law, and community ambassador (Elba Shore and Oliva Shore) 08/13/24--- reviewed that despite being chronically ill that he is medically stable for discharge to the next level of care--daughter and son-in-law had angst
regarding which facility he would go to as the daughter needed to feel 'safe' when she visited him and that he would be taken care of properly. Explained that she would like onsite dialysis and those facilities generally seem to be less desirable
than facilities where he would need to leave the facility and go for dialysis at a dialysis center. She had adamantly opposed that idea in the past. In addition, he would need to leave the dialysis facility to get weekly thoracentesis, so leaving
to get dialysis may not be that much of a burden. Again, she refused. She also would like him closer to her so that she can visit and his grandchildren can visit. Based on all of the above information and conversations that were had, I have
agreed to keep the patient until Saturday, August 17, 2024 in order for her to view and visit the facility she may be interested in. I would not put the discharge order in today. If he remains medically stable for discharge, the discharge order will
go in Saturday, August 17, 2024. Patient's son-in-law then stated that they would like to have until next Monday, August 19, 2024 to review these facilities. I politely told him the answer would be no. Elba also indicated that if he is medically
stable when the discharge order is placed, he would need to take the first available bed. They were given information that they could appeal the discharge if they felt that strongly about not taking the first available bed. They were also given
information that they would be charged if the appeal ruled in our favor as opposed to theirs and the patient remained in the hospital.
Anticipated Discharge: Today
Subjective/Interval History
-
Date of Service: August 16, 2024
pt sleeping--did not wake up
Objective Data
-
Labs:
Laboratory Results
08/16/24
04:25
WBC 12.0 H
Hgb 10.6 L
Hct 32.6 L
Plt Count 310
Vital Signs:
max temp for 24 hours
08/15/24
15:05
Temp 98.7 F
Vital Signs
Temp Pulse Resp BP Pulse Ox
98.2 F 74 18 142/81 98
08/15/24 23:10 08/15/24 23:10 08/15/24 23:10 08/15/24 23:10 08/15/24 23:10
Review of Systems
-
Unable to obtain full review of systems at this time due to: Other (pt sleeping--did not wake up)
Physical Exam
-
General: No Apparent Distress, Comfortable (sleeping) and Cachectic
HEENT: Normocephalic and Atraumatic; Negative Oxygen
Respiratory: Decreased Breath Sounds (left base)
Cardiac: Regular Rhythm and S1/S2
GI: Soft, Nontender, Nondistended, Normal Bowel Sounds and Peg Tube
Musculoskeletal: No Clubbing, No Cyanosis, No Edema and Other (muscle atrophy)
Neuro: Negative Awake (sleeping)
[2024-08-16] MEDS: HEPARIN 5000 UNITS SC ×2 (08:56→20:52)
[2024-08-16] MEDS: FOLVITE 1 MG TUBE (08:56)
[2024-08-16] MEDS: WELLBUTRIN REGULAR RELEASE 150 MG TUBE ×2 (08:56→20:53)
[2024-08-16] MEDS: VISBIOME 1 CAP TUBE (08:56)
[2024-08-16] MEDS: LOW STRENGTH ASPIRIN 81 MG TUBE (08:57)
[2024-08-16] MEDS: NSS (PRESERVATIVE FREE) 10 ML IV ×2 (08:57→20:53)
[2024-08-16] MEDS: PROTONIX IV 40 MG IV ×2 (08:57→20:52)
[2024-08-16 09:27] VITALS: BP 141/85
[2024-08-16] MEDS: ROXICODONE 5 MG TUBE ×2 (09:49→17:30)
[2024-08-16] MEDS: XANAX 0.25 MG TUBE ×2 (09:49→22:59)
[2024-08-16 12:01] LABS: Glucose - Point of Care 87 mg/dl (70-99)
--- NOTE | 2024-08-16 12:17 | W.PN.NEPH.PH ---
Today's Communication / Plan
-
HD tomorrow
monitor catheter site
Assessment/Plan
-
Impression:
ESRD MWF
Hypoxia/left lung atelectasis versus pneumonia
Large left pleural effusion s/p thoracentesis 06/21
CHF
Anemia
Hypertension hx
Hyponatremia
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
Hyperphosphatemia
PEG
Non-ST elevation [place]
History of stroke with subsequent left hemiparesis dysarthria and dysphagia
Tunneled right HD IJ catheter
Chronic impacted right proximal humerus fracture
hypercalcemia
Plan:
HD catheter anchoring suture site with mild erythema noted, no drainage -looks better today
HD Saturday, noted possible TTS at [place]
off sensipar as serum calcium now normalized following parathyroidectomy surgery 08/04
weekly thoracentesis as needed, unless another option is possible
-
-
Date of Service: August 16, 2024
CC / HPI / ROS
-
Chief Complaint:
ESRD
History of Present Illness:
hemodynamically stable
Hemodialysis on Saturday schedule
s/p PTX left adenoma 08/04 with serum calcium now normal
bp stable
Review of Systems:
mild sob intermittently , has cough seem chronic
No fever
off supplemental O2
PEG feeds on
Labs
-
Labs:
WBC 12.0 10^3/uL (4.8-10.8) H 08/16/24 04:25
RBC 3.56 10^6/uL (4.70-6.10) L 08/16/24 04:25
Hgb 10.6 g/dL (13.0-18.0) L 08/16/24 04:25
Hct 32.6 % (39.0-52.0) L 08/16/24 04:25
Plt Count 310 10^3/uL (130-400) 08/16/24 04:25
Sodium 138 mmol/L (135-145) 08/14/24 07:44
Potassium 3.7 mmol/L (3.5-5.1) 08/14/24 07:44
Chloride 100 mmol/L (98-107) 08/14/24 07:44
Carbon Dioxide 29 mmol/L (22-30) 08/14/24 07:44
BUN 45 mg/dl (9-20) H 08/13/24 08:12
Creatinine 2.4 mg/dL (0.7-1.3) H 08/13/24 08:12
eGFR 28.49 08/13/24 08:12
Glucose 123 mg/dl (70-99) H 08/13/24 08:12
Calcium 9.0 mg/dl (8.4-10.2) 08/13/24 08:12
Phosphorus 4.7 mg/dl (2.5-4.5) H 08/10/24 07:52
Bey-Z-Lmhjevfyvqk Pept > 21216 pg/ml 06/20/24 18:13
Albumin 3.6 g/dl (3.5-5.0) 08/12/24 12:34
Physical Exam
-
Vital Signs:
Vital Signs
Temp Pulse Resp BP Pulse Ox
97.4 F 71 18 141/85 98
08/16/24 10:13 08/16/24 09:27 08/16/24 09:27 08/16/24 09:27 08/16/24 09:27
Cardiovascular:: Regular rate and rhythm
Respiratory:: Bilateral: Coarse
Lung Excursion:: Normal
Abdomen:: Nontender and Soft
Extremity Edema:: None: Bilateral:
Bender Catheter: No
Other Findings::
tunneled catheter site
mild redness at anchoring suture area, no drainage
--- NOTE | 2024-08-16 14:02 | CM ---
Addendum entered by Elba Blankenship 08/16/24 14:22:
Updated daughter and she confirmed she is willing to accept [facility] and reviewed IMM process. CM also updated patient daughter regarding cost of DH if appeal was unsuccessful; 3000 + ancillary cost. CM reviewed patient length of stay at SNF's
previously in this episode of care approx 51 days at [facility] and [facility]. Therapy to see patient for assessment today.
Original Note:
Patient seen at bedside in [address] [place] [address]. Patient sleeping. CM spoke with Marion from [facility], she confirmed bed available tentatively but still awaiting confirmation of HD acceptance. CM requested NPI numbers. Patient last seen by therapy 08/13
will update therapy and request therapy so that when auth initiated therapy notes will be within required assessment. CM updated physician and will call patient daughter to update. CM will continue to follow for discharge planning needs.
Plan; SNF; pending confirmation of acceptance and auth will be needed.
[2024-08-16 15:00] VITALS: BP 133/80
[2024-08-16 15:15] VITALS: BP 138/79; PULSE 69; O2SAT 98
[2024-08-16 18:05] LABS: Glucose - Point of Care 95 mg/dl (70-99)
[2024-08-16] MEDS: COZAAR 25 MG TUBE (18:29)
[2024-08-16] MEDS: CRESTOR 20 MG TUBE (18:29)
[2024-08-16] MEDS: MELATONIN 5 MG TUBE (20:53)
[2024-08-16] MEDS: TYLENOL 650 MG TUBE (22:59)
[2024-08-16 23:10] VITALS: BP 118/80
[2024-08-16 23:47] LABS: Glucose - Point of Care 96 mg/dl (70-99)
[2024-08-17 05:51] LABS: Glucose - Point of Care 92 mg/dl (70-99)
[2024-08-17 06:00] VITALS: BMI 18.1
[2024-08-17 07:10] VITALS: BP 126/71
[2024-08-17] MEDS: HEPARIN 500 UNITS IV ×2 (07:35→08:35)
[2024-08-17] MEDS: FLEXBUMIN 25% FOR HEMODIALYSIS 12.5 GRAMS IV (08:03)
[2024-08-17 08:04] LABS: Hematocrit 29.3 % (39.0-52.0); Hemoglobin 9.7 g/dL (13.0-18.0); Mean Corp Hgb Conc. 33.1 g/dL (33.0-37.0); Mean Corpuscular Hgb 30.2 pg (27.0-31.0); Mean Corpuscular Volume 91.3 fL (80.0-94.0); Mean Platelet Volume 8.8 fL (7.4-10.4); Platelet Count 284 10^3/uL (130-400); Red Blood Cell Count 3.21 10^6/uL (4.70-6.10); Red Cell Dist. Width 16.2 % (11.5-14.5); White Blood Cell Count 11.9 10^3/uL (4.8-10.8)
[2024-08-17] MEDS: MANNITOL 25% 12.5 GRAMS IV (08:04)
[2024-08-17 08:34] LABS: Blood Urea Nitrogen 85 mg/dl (9-20); Calcium 8.7 mg/dl (8.4-10.2); Carbon Dioxide 27 mmol/L (22-30); Chloride 94 mmol/L (98-107); Estimated Creatinine Clearance 14 ml/min; Potassium 3.7 mmol/L (3.5-5.1); Sodium 133 mmol/L (135-145); eGFR 14.56
[2024-08-17] MEDS: ProAmatine 10 MG PO (09:19)
[2024-08-17 09:21] LABS: Glucose 97 mg/dl (70-99)
--- NOTE | 2024-08-17 10:35 | CM ---
Addendum entered by Elba Blankenship 08/17/24 15:28:
When auth received patient can transfer to [facility]. Please call report [phone] ext [phone]
Addendum entered by Elba Blankenship 08/17/24 15:20:
Confirmation of bed available at [facility]. Auth request submitted to [facility] [employer] and awaiting response fax;[phone]. Physician aware that patient can go as soon as auth completed. Plan for HD t,th,sat and chair
confirmed per Tamica. CM spoke with patient daughter and update provided. Physician will plan to call in am. CM will continue to follow for discharge planning needs.
Plan; transfer to [facility] pending auth
Original Note:
Patient seen at bedside on HD. Patient unable to be seen by OT this am due to HD, they will return as soon as possible, and are aware that assessment needed for auth.
CM spoke with Tamica at [facility] still awaiting confirmation of HD bed; for [place] and NPI for physician Dr. Melodie Jarvis [phone]. CM will continue to follow for discharge planning needs.
Plan; [facility] pending confirmation of bed/chair and auth.
[2024-08-17] MEDS: HEPARIN 3600 UNITS INTRACATH (11:22)
[2024-08-17] MEDS: WELLBUTRIN REGULAR RELEASE 150 MG TUBE ×2 (11:57→20:05)
[2024-08-17] MEDS: FOLVITE 1 MG TUBE (11:57)
[2024-08-17] MEDS: LOW STRENGTH ASPIRIN 81 MG TUBE (11:57)
[2024-08-17] MEDS: NSS (PRESERVATIVE FREE) 10 ML IV ×2 (11:57→20:05)
[2024-08-17] MEDS: VISBIOME 1 CAP TUBE (11:57)
[2024-08-17] MEDS: PROTONIX IV 40 MG IV ×2 (11:57→20:08)
[2024-08-17 11:58] LABS: Glucose - Point of Care 91 mg/dl (70-99)
[2024-08-17] MEDS: HEPARIN 5000 UNITS SC ×2 (11:58→20:05)
[2024-08-17] MEDS: MORPHINE SULFATE 0.5 MG IV ×3 (12:02→22:00)
--- NOTE | 2024-08-17 12:20 | W.PN.HOSP.TC ---
Addendum entered and electronically signed by Benedict Villarreal MD 08/17/24 15:16:
[facility] has dialysis chair time for Saturday
Informed nephrology that patient will have his next round of dialysis on and if he should get HD tomorrow before he leaves. Nephro recommended next HD on
Original Note:
Today's Communication/Plan
-
continue discharge planning
medically remains stable
Assessment / Plan
Assessment / Plan
Acute hypoxic respiratory failure, ventilator dependent respiratory failure, s/p PEA/cardiac arrest -patient had episode of mucous plugging with respiratory arrest. Patient was bradycardic at that time and likely added to the problem. Patient
require ventilator support and was able to be extubated--back on O2--Dyspnea has improved with 8 thoracentesis (7 left and 1 right). Remains at high risk of decompensation and further respiratory problems--
Hypercalcemia/parathyroid adenoma/primary hyperparathyroidism-- parathyroid adenoma found on imaging. Parathyroid hormone close to 1000. Patient has been maximized on Cinacalcet and also has been provided calcitonin/bisphosphonates. In light of
refractory nature of hypercalcemia surgery has been consulted, patient is a candidate for minimally invasive parathyroidectomy once pulmonary status stabilizes-- s/p surgery for parathyroid 08/04/24--had 7 gm adenoma removed--calcium returned to
normal
Left mainstem bronchus obstruction, recurrent aspiration -patient has increased secretions and potential for recurrent bronchus obstruction and related complication-- pulmonary toileting--aspiration risk
Leukocytosis/hypothermia--likely aspiration pneumonitis--finished 5 days of Unasyn
New onset GI bleed on 07/27--pt does not want workup, GI said would be high risk--follow HGB, s/p 3 units of pRBC total this admission--cont PPI--apprec GI--resolved
Recurrent pleural effusion--patient underwent right-sided thoracentesis of 1.1 L--And left-sided thoracentesis of 1450ml, 1750 ml, 750ml, 1600ml, 1150ml, 700ml, 800mls-- A Pleurx catheter was planned although insurance approval did not come through
hiccups-- resolved. PRN thorazine was provided.
NSTEMI -patient was managed conservatively-- Echocardiogram showing ejection fraction of 50 to 55%.
Diastolic heart failure exacerbation -patient volume status being managed by hemodialysis, patient makes some urine--recurrent pleural effusions not controlled with HD, now pseudo-exudative --will provide patient a prescription for as needed
x-ray/thoracentesis at discharge to have this done outpatient in IRAD department
Hx CVA w L hemiparesis, dysarthria, dysphagia-- cont tube feeding
ESRD on HD - currently on MWF schedule. apparently this may need to be adjusted to Saturday to accommodate [place] [facility] dialysis chair time
anemia of chronic disease- transfused 3 total unit pRBCs during this admission
Severe calcific atherosclerotic plaque in the coronary arteries on CT Chest
Right chronically impacted humeral neck fracture -imaging finding on CT chest, needs to be verified with previous records
protein calorie malnutrition--cachectic, stage 2 pressure wound--on tube feeds--feel at least moderate if not severe
sacrum stage 2 pressure injury, now with DTI of heel as per nursing--cont local wound care---unclear to me if POA
Hyponatremia
Essential Hypertension
Hyperlipidemia
Carotid artery disease s/p R CEA
BPH
Depression
code status--back to limited DNI--wants chest compressions
Dr Marques's discission with family :
07/20 Had approximately 45-minute conversation by phone on with patient's daughter and patient's ex---explained conversation that I started with the patient Wednesday 07/19 regarding hospice and what he is willing to put up with, medical conditions
currently, upcoming surgery, general debilitation and the fact that he has been hospitalized here for approximately 1 month. They explained that he was at [facility] from February to April of this year, then went to rehab, and now here.
Explained that in my medical opinion, I do not believe that he will be here next year at this time and that he is hospice appropriate. They then questioned the utility of the parathyroid surgery scheduled for tomorrow. At this time, we will
postpone surgery and have notified Dr. Stroud. They are in full agreement with having a rai conversation with the patient but do not wish to do so until July 30 when they are available to be here bedside and speak in person. I did ask if they were
able to come in sooner than July 30 to which the reply was no.
07/21 Patient was on the phone with his daughter Tawnya. I started the conversation with the patient that I had with Tawnya and her mom on Thursday 07/20. I explained that I do not think that the patient will be here next year at this time. I also told
him that I do not think that he is rehab-able and that he will likely not get home and he will be in a half-way long-term. Told the patient that I think meeting with hospice and having a rai discussion will be another piece of the puzzle for
him to make an informed decision about what he wants moving forward. I did explain that hospice is comfort focused. Patient was going to think about it and continue discussions with his family. They are still anticipating coming in July 30 to have
a discussion about options he may have.
07/22 asked patient again regarding what he thought about hospice, goals of care that we do spoke about. He stated that his daughter and are coming tomorrow , July 23, 2024. He told me that he feels by choosing hospice that that is
being 'selfish'. He wants to be true to his Taoist teaching. He asked to speak to a customs compliance manager. We did contact oil well engineer's office at his request. pt and family have now decided against hospice and that he wants to continue moving forward
07/30 had meeting with daughter, and ex---showed them the chest x-ray of his recurrent pleural effusion--again, stated that I do not believe he will be here next year at this time, that he will be dependent upon half-way and that he will never
go home--daughter replied, 'we are going to do what ever he wishes'
08/11--explained to patient that he has chosen to get better and move forward--therefore, he cannot refuse temps, lab draws, working with therapy etc....
disposition planning--refused by LTAC, refused by acute rehab-no Asept cath per insurance--SNF.... Case management reported that patient daughter does not want him to leave the hospital without having his surgery even if he is medically stable to do
so, they also have not provided case management the outpatient dialysis center that he was at prior to his being hospitalized at [facility]
I reviewed patient's PT and OT notes and he cannot even sit on the side of the bed--I do not believe that he is rehab able--I believe that he will be a long-term half-way resident, unfortunately
08/12 Daughter has refused multiple possible SNF options both with and without dialysis on site, having to pay for transportation to a hospital for weekly thoracentesis, etc as relayed to me by Case management--family meeting to be held 08/13/24
08/13 family meeting with daughter and son-in-law, and regional facilities specialist (Elba Shore and Oliva Shore) -- reviewed that despite being chronically ill that he is medically stable for discharge to the next level of care--daughter and son-in-law had angst
regarding which facility he would go to as the daughter needed to feel 'safe' when she visited him and that he would be taken care of properly. Explained that she would like onsite dialysis and those facilities generally seem to be less desirable
than facilities where he would need to leave the facility and go for dialysis at a dialysis center. She had adamantly opposed that idea in the past. In addition, he would need to leave the dialysis facility to get weekly thoracentesis, so leaving
to get dialysis may not be that much of a burden. Again, she refused. She also would like him closer to her so that she can visit and his grandchildren can visit. Based on all of the above information and conversations that were had, I have
agreed to keep the patient until Saturday, August 17, 2024 in order for her to view and visit the facility she may be interested in. I would not put the discharge order in today. If he remains medically stable for discharge, the discharge order will
go in Saturday, August 17, 2024. Patient's son-in-law then stated that they would like to have until next Monday, August 19, 2024 to review these facilities. I politely told him the answer would be no. Elba also indicated that if he is medically
stable when the discharge order is placed, he would need to take the first available bed. They were given information that they could appeal the discharge if they felt that strongly about not taking the first available bed. They were also given
information that they would be charged if the appeal ruled in our favor as opposed to theirs and the patient remained in the hospital.
Anticipated Discharge: Today
Subjective/Interval History
-
Date of Service: August 17, 2024
Resting comfortably in bed
No overt dyspnea/hypoxia
Patient is anxious with upcoming discharge and transition to new facility
Objective Data
-
Labs:
Laboratory Results
08/17/24
07:36
WBC 11.9 H
Hgb 9.7 L
Hct 29.3 L
Plt Count 284
Sodium 133 L
Potassium 3.7
Chloride 94 L
Carbon Dioxide 27
BUN 85 H
Creatinine 4.2 H*
Glucose 97
Calcium 8.7
Vital Signs:
Vital Signs
Temp Pulse Resp BP Pulse Ox
97.5 F 68 18 113/64 98
08/17/24 07:10 08/17/24 07:10 08/17/24 07:10 08/17/24 09:19 08/17/24 07:10
I&O
08/16/24 08/17/24 08/18/24
06:59 06:59 06:59
Intake Total 950 / 950 1850 / 1850
Output Total 0 / 0 0 / 0
Balance 950 / 950 0 / 1849
Review of Systems
-
Respiratory: Reports No Symptoms
Cardiac: Reports No Symptoms
Abdomen/GI: Reports No Symptoms
Physical Exam
-
General: No Apparent Distress, Comfortable (sleeping) and Cachectic
HEENT: Negative Oxygen
Respiratory: Decreased Breath Sounds (left base)
Cardiac: Regular Rhythm and S1/S2
GI: Soft, Nontender, Nondistended, Normal Bowel Sounds and Peg Tube
Musculoskeletal: Other (muscle atrophy)
Neuro: Awake (sleeping), Alert and Oriented
--- NOTE | 2024-08-17 12:39 | W.PN.NEPH.HD ---
Progress Note - Hemodialysis
-
Date of Service: August 17, 2024
Duration: 30 minutes and 3 hours
Potassium Bath: 3
Calcium Bath: 2.5
Opti-Dialyzer: 160
Ultrafiltration: Other (1.5-2kg)
Blood Flow: 400
Dialysate Flow: 600
Heparin: no
EPO: [id number]
[2024-08-17 15:20] VITALS: BP 136/75
[2024-08-17] MEDS: THORAZINE 10 MG TUBE (15:24)
[2024-08-17] MEDS: CRESTOR 20 MG TUBE (17:28)
[2024-08-17 17:58] LABS: Glucose - Point of Care 94 mg/dl (70-99)
[2024-08-17] MEDS: MELATONIN 5 MG TUBE (21:52)
[2024-08-17] MEDS: ZOFRAN 4 MG IV (22:00)
[2024-08-17 23:15] VITALS: BP 119/68
[2024-08-18 00:07] LABS: Glucose - Point of Care 96 mg/dl (70-99)
[2024-08-18] MEDS: XANAX 0.25 MG TUBE (04:53)
[2024-08-18 06:00] VITALS: BMI 17.6
[2024-08-18 06:04] LABS: Glucose - Point of Care 107 mg/dl (70-99)
[2024-08-18 07:05] VITALS: BP 129/81
--- NOTE | 2024-08-18 08:55 | W.PN.HOSP.TC ---
Addendum entered and electronically signed by Benedict Villarreal MD 08/18/24 09:14:
Called [facility] with no answer, VM left for callback to discuss any pre-discharge issues.
Original Note:
Today's Communication/Plan
-
d/c to [facility]
Assessment / Plan
Assessment / Plan
Acute hypoxic respiratory failure, ventilator dependent respiratory failure, s/p PEA/cardiac arrest -patient had episode of mucous plugging with respiratory arrest. Patient was bradycardic at that time and likely added to the problem. Patient
require ventilator support and was able to be extubated--back on O2--Dyspnea has improved with 8 thoracentesis (7 left and 1 right). Remains at high risk of decompensation and further respiratory problems--
Hypercalcemia/parathyroid adenoma/primary hyperparathyroidism-- parathyroid adenoma found on imaging. Parathyroid hormone close to 1000. Patient has been maximized on Cinacalcet and also has been provided calcitonin/bisphosphonates. In light of
refractory nature of hypercalcemia surgery has been consulted, patient is a candidate for minimally invasive parathyroidectomy once pulmonary status stabilizes-- s/p surgery for parathyroid 08/04/24--had 7 gm adenoma removed--calcium returned to
normal
Left mainstem bronchus obstruction, recurrent aspiration -patient has increased secretions and potential for recurrent bronchus obstruction and related complication-- pulmonary toileting--aspiration risk
ESRD on HD - currently on MWF schedule. Patient HD schedule will be changed to TTS, and next round of HD will be at [facility], patient had HD round yesterday and nephro recommends next round on .
Recurrent pleural effusion--patient underwent right-sided thoracentesis of 1.1 L--And left-sided thoracentesis of 1450ml, 1750 ml, 750ml, 1600ml, 1150ml, 700ml, 800mls-- A Pleurx catheter was planned although insurance approval did not come through
Patient will always have some residual effusion on future chest and not a good indicator for need of thoracentesis.
Patient should have CXR ONLY if effusion is symptomatic IF 1. Patient is dyspnic 2. Patient requiring incremental oxygen. 3. Concern of fluid being infected.
I have provided physical script for [facility] to use to plan OUTPATIENT thoracentesis PRN with our IRAD department.
Leukocytosis/hypothermia--likely aspiration pneumonitis--finished 5 days of Unasyn
New onset GI bleed on 07/27--pt does not want workup, GI said would be high risk--follow HGB, s/p 3 units of pRBC total this admission--cont PPI--apprec GI--resolved
hiccups-- resolved. PRN thorazine was provided.
NSTEMI -patient was managed conservatively-- Echocardiogram showing ejection fraction of 50 to 55%.
Diastolic heart failure exacerbation -patient volume status being managed by hemodialysis, patient makes some urine--recurrent pleural effusions not controlled with HD, now pseudo-exudative
Hx CVA w L hemiparesis, dysarthria, dysphagia-- cont tube feeding
anemia of chronic disease- transfused 3 total unit pRBCs during this admission
Severe calcific atherosclerotic plaque in the coronary arteries on CT Chest
Right chronically impacted humeral neck fracture -imaging finding on CT chest, needs to be verified with previous records
protein calorie malnutrition--cachectic, stage 2 pressure wound--on tube feeds--feel at least moderate if not severe
sacrum stage 2 pressure injury, now with DTI of heel as per nursing--cont local wound care---unclear to me if POA
Hyponatremia
Essential Hypertension
Hyperlipidemia
Carotid artery disease s/p R CEA
BPH
Depression
code status--back to limited DNI--wants chest compressions
Dr Marques's discission with family :
07/20 Had approximately 45-minute conversation by phone on with patient's daughter and patient's ex---explained conversation that I started with the patient Wednesday 07/19 regarding hospice and what he is willing to put up with, medical conditions
currently, upcoming surgery, general debilitation and the fact that he has been hospitalized here for approximately 1 month. They explained that he was at [facility] from February to April of this year, then went to rehab, and now here.
Explained that in my medical opinion, I do not believe that he will be here next year at this time and that he is hospice appropriate. They then questioned the utility of the parathyroid surgery scheduled for tomorrow. At this time, we will
postpone surgery and have notified Dr. Stroud. They are in full agreement with having a rai conversation with the patient but do not wish to do so until July 30 when they are available to be here bedside and speak in person. I did ask if they were
able to come in sooner than July 30 to which the reply was no.
07/21 Patient was on the phone with his daughter Tawnya. I started the conversation with the patient that I had with Tawnya and her mom on Thursday 07/20. I explained that I do not think that the patient will be here next year at this time. I also told
him that I do not think that he is rehab-able and that he will likely not get home and he will be in a longterm long-term. Told the patient that I think meeting with hospice and having a rai discussion will be another piece of the puzzle for
him to make an informed decision about what he wants moving forward. I did explain that hospice is comfort focused. Patient was going to think about it and continue discussions with his family. They are still anticipating coming in July 30 to have
a discussion about options he may have.
07/22 asked patient again regarding what he thought about hospice, goals of care that we do spoke about. He stated that his daughter and are coming tomorrow , July 23, 2024. He told me that he feels by choosing hospice that that is
being 'selfish'. He wants to be true to his [employer] teaching. He asked to speak to a ict business analyst. We did contact chief meteorologist's office at his request. pt and family have now decided against hospice and that he wants to continue moving forward
07/30 had meeting with daughter, and ex---showed them the chest x-ray of his recurrent pleural effusion--again, stated that I do not believe he will be here next year at this time, that he will be dependent upon longterm and that he will never
go home--daughter replied, 'we are going to do what ever he wishes'
08/11--explained to patient that he has chosen to get better and move forward--therefore, he cannot refuse temps, lab draws, working with therapy etc....
disposition planning--refused by LTAC, refused by acute rehab-no Asept cath per insurance--SNF.... Case management reported that patient daughter does not want him to leave the hospital without having his surgery even if he is medically stable to do
so, they also have not provided case management the outpatient dialysis center that he was at prior to his being hospitalized at [facility]
I reviewed patient's PT and OT notes and he cannot even sit on the side of the bed--I do not believe that he is rehab able--I believe that he will be a long-term longterm resident, unfortunately
08/12 Daughter has refused multiple possible SNF options both with and without dialysis on site, having to pay for transportation to a hospital for weekly thoracentesis, etc as relayed to me by Case management--family meeting to be held 08/13/24
08/13 family meeting with daughter and son-in-law, and spiral winding machine helper (Elba Shore and Oliva Shore) -- reviewed that despite being chronically ill that he is medically stable for discharge to the next level of care--daughter and son-in-law had angst
regarding which facility he would go to as the daughter needed to feel 'safe' when she visited him and that he would be taken care of properly. Explained that she would like onsite dialysis and those facilities generally seem to be less desirable
than facilities where he would need to leave the facility and go for dialysis at a dialysis center. She had adamantly opposed that idea in the past. In addition, he would need to leave the dialysis facility to get weekly thoracentesis, so leaving
to get dialysis may not be that much of a burden. Again, she refused. She also would like him closer to her so that she can visit and his grandchildren can visit. Based on all of the above information and conversations that were had, I have
agreed to keep the patient until Saturday, August 17, 2024 in order for her to view and visit the facility she may be interested in. I would not put the discharge order in today. If he remains medically stable for discharge, the discharge order will
go in Saturday, August 17, 2024. Patient's son-in-law then stated that they would like to have until next Monday, August 19, 2024 to review these facilities. I politely told him the answer would be no. Elba also indicated that if he is medically
stable when the discharge order is placed, he would need to take the first available bed. They were given information that they could appeal the discharge if they felt that strongly about not taking the first available bed. They were also given
information that they would be charged if the appeal ruled in our favor as opposed to theirs and the patient remained in the hospital.
More than 30 minutes spent in discharge including
Final examination of the patient
Summarizing hospital stay
Instructions for continuing care to all relevant caregivers
Preparation of discharge records, prescriptions, and referral forms
Total time spent (in minutes): 42 mins
Anticipated Discharge: Today
Subjective/Interval History
-
Date of Service: August 18, 2024
no complains overnight
Objective Data
-
Vital Signs:
Vital Signs
Temp Pulse Resp BP Pulse Ox
97.7 F 79 20 129/81 98
08/18/24 07:05 08/18/24 07:05 08/18/24 07:05 08/18/24 07:05 08/18/24 07:05
I&O
08/17/24 08/18/24 08/19/24
06:59 06:59 06:59
Intake Total 1849
Output Total 0 / 0
Balance 1849
Review of Systems
-
Respiratory: Reports No Symptoms
Cardiac: Reports No Symptoms
Abdomen/GI: Reports No Symptoms
Physical Exam
-
General: Comfortable (sleeping) and Cachectic
HEENT: Negative Oxygen
Respiratory: Clear to Auscultation; Negative Wheezes
Cardiac: Regular Rhythm and S1/S2
GI: Soft and Peg Tube
Musculoskeletal: Other (muscle atrophy)
Neuro: Awake (sleeping), Alert and Oriented
[2024-08-18] MEDS: LOW STRENGTH ASPIRIN 81 MG TUBE (09:02)
[2024-08-18] MEDS: FOLVITE 1 MG TUBE (09:02)
[2024-08-18] MEDS: VISBIOME 1 CAP TUBE (09:02)
[2024-08-18] MEDS: NSS (PRESERVATIVE FREE) 10 ML IV (09:03)
[2024-08-18] MEDS: HEPARIN 5000 UNITS SC (09:03)
[2024-08-18] MEDS: PROTONIX IV 40 MG IV (09:03)
[2024-08-18] MEDS: WELLBUTRIN REGULAR RELEASE 150 MG TUBE (09:07)
--- NOTE | 2024-08-18 09:50 | CM ---
Addendum entered by Jolene Spain 08/18/24 11:34:
1315 transport set for [facility] today -
daughter request Tamica from facility call her - Tamica stated she will call daughter Tawnya & phone number given to Tamica
Addendum entered by Jolene Spain 08/18/24 10:50:
IMM explained to patient & placed in chart
Original Note:
Received call from Tato from [facility] [employer] [phone] ext [phone]
Patient approved for [facility]
Start date 08/18/24
NRD 08/25/24
Auth approval #: [id number]
Fax updates to [phone]
Auth information given to Tamica dumont at [facility]
tt hospitalist/nephrology-ok for discharge today
PLAN: [facility]
Report #: [phone] ext [phone]
Fax #: [phone]
transportation forms on chart
[2024-08-18 11:00] VITALS: BP 130/77
--- NOTE | 2024-08-18 12:04 | W.DCSUMMARY ---
Discharge Summary
Discharge Data
Date of Admission: 06/20/24
Date of Discharge: 08/18/24
-
Pending Results: No
Hospital Course
Discharging Physician : Dr Benedict Villarreal
Disposition : [facility]
Primary care physician : Unknown
Principal Discharge diagnosis :
Ventilator dependent respiratory failure
Acute hypoxic respiratory failure
Cardiac arrest, brief pulseless electrical activity
Mucous plugging with left lung collapse
Aspiration pneumonia
Recurrent left-sided effusion
Hyperglycemia
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
Non-ST segment elevation myocardial infarction
Diastolic heart failure exacerbation
Gastrointestinal bleed
Chronic Discharge diagnosis :
End-stage renal disease on hemodialysis
Anemia of chronic renal disease
Chronically impacted right humeral neck fracture
Severe protein calorie malnutrition
Sacral stage II pressure injury
Hyponatremia
Hyperlipidemia
Carotid artery disease with history of right carotid endarterectomy
Benign prostatic hyperplasia
Depression
Chronic dysphagia post gastrostomy tube on tube feed
History of right-sided stroke
Hospital Course :
Patient is a 69-year-old male with no mentioned past medical history was sent to [facility] from retirement after patient was noted to having new onset of shortness of breath and hypoxia.
1. Acute hypoxic respiratory failure/ventilator dependent respiratory failure -in ER patient was noted to be hypoxic with initial chest x-ray showing diffuse haziness in both side of the lung with suspected effusions. A follow-up CT chest was done
which showed endobronchial obstruction of left mainstem bronchus with surrounding airspace consolidation and large left-sided pleural effusion and moderate to large right pleural effusion as well. Patient was maintained on empiric antibiotic and
underwent thoracentesis with some improvement in pulmonary status. Unfortunately patient continued to have repeated diffuse mucous plugging with requiring oxygenation. Patient was having excessive secretions which required mechanically to be
aspirated as well. Patient was provided all pulmonary toileting measures and despite that continued to have tenacious pulmonary course during the hospital stay. After initial 4 weeks of hospital stay patient respiratory status somewhat stabilized
and did not have any further aspiration reoccurrence.
2. Non-ST segment elevation myocardial infarction -at admission patient was noted to having elevated troponin level with troponin max of 10.7. Cardiology was involved in care and patient was maintained on antiplatelet therapy and heparin drip.
Echocardiogram was done which showed preserved ejection fraction without significant valvulopathy. Initially there was plan to have undergo left heart catheterization although in light of tenacious pulmonary status patient was managed medically
only.
3. PEA cardiac arrest/ventilator dependent respiratory failure -patient had significant bradycardia at admission and was requiring IV dopamine support. Cardiology was debating pacemaker placement initially although was deemed not a candidate later
on. No clear explanation for patient's persistent bradycardia although hypercalcemia may have played role. Posthospitalization patient likely had worsening hypoxia from possible mucous plugging triggering a brief PEA arrest and was intubated on
06/23. Patient had required 1 round of epi and 1 round of CPR before ROSC was achieved. Patient did not have any anoxic brain injury from the cardiac arrest. Patient was able to be taken off of ventilator after few days. Patient bradycardia also
improved after resolution of hypercalcemia
4. Refractory hypercalcemia, primary versus tertiary hyperparathyroidism, parathyroid adenoma -patient was having persistently elevated calcium in range of 1213. Patient was already on Cinacalcet dose of which was maximized. Despite being patient
renal failure patient was provided bisphosphonate injection. Patient already on dialysis and was getting calcium bath. Despite all this patient calcium remained elevated. PTH was checked and was found to be elevated in range of thousand plus. An
ultrasound of neck was done which showed a parathyroid adenoma. Surgery was involved in care for further evaluation for possible parathyroidectomy and initially patient was planned to have this done outpatient. Unfortunately hypercalcemia
persisted and with patient prolonged hospital stay patient underwent elective minimally invasive parathyroidectomy with removal of 7 g of adenomatous parathyroid gland on 08/04/24. Postprocedure patient PTH/calcium level has trended down. Patient
has been taken off of Cinacalcet therapy at this point.
5. Recurrent left-sided pleural effusion -as mentioned above patient predominantly had bilateral pleural effusion at admission although after initial drainage patient started to developing recurrent left-sided effusion. Patient ended up requiring
x7 thoracentesis in the course of 8 weeks of stay in the hospital. Fluid was initially transudative but was felt to turn into pseudo exudative. Pleurx and pleurodesis were considered although not optimal due to complication/insurance approval
issues. Patient was initially intended to have outpatient planned weekly thoracentesis although during last 2 weeks of hospital stay patient pulmonary status remained stable without any further medically bothersome effusion recollection. Plan is
for patient to be evaluated as needed if patient starts to having new onset of dyspnea or hypoxia in the retirement. Patient will require to have an outpatient thoracentesis done as needed basis.
6. Gastrointestinal bleed -patient had developed new GI bleed during this hospital stay although did not want any further workup. Patient required 2 to 3 unit of blood transfusion this admission. Patient was maintained on Protonix.
7. Diastolic heart failure exacerbation -patient does not make any urine and volume status was managed by hemodialysis during the hospital stay.
8. End-stage renal disease on hemodialysis -patient maintained on Saturday dialysis during the hospital stay. Patient is being discharged to [facility] where patient dialysis chair time has adjusted to Saturday
moving on.
Of note patient have poor prognosis and over course of 2 months of hospital stay hospice/palliative care was discussed multiple times by different specialist. Patient have expressed wish to continue with full treatment plan.
Patient has been discharged to [facility] facility.
Important imaging findings :
None
Procedure findings :
None
Discharge Plan
-
Patient Disposition: [facility]/SNF
Discharge Diagnosis/Procedures: L mainstem bronchus obstruction secondary to secretions
B/l pleural effusions likely secondary to underlying CHF and ESRD
Recurrent Left sided pleural effusion
Episode of hypoglycemia
NSTEMI
Acute on chronic HFpEF
Hypercalcemia secondary to parathyroid adenoma s/p parathyroidectomy 08/04 and hyperparathyroidism secondary to renal dysfunction
Condition: Fair
Diet: Tube feeding
Activity: As tolerated
Driving Restrictions: No driving
Bathing Restrictions: OK to Shower
Other Services: PT
Activity Restrictions/Additional Instructions:
Wound Care Instructions Peg tube care- Gently clean around Peg tube with soap and water. If needed, may apply thin layer of clear barrier ointment such as Calmoseptine or Desitin.
Penis tip ulcer-clean with saline or soap and water, zinc barrier ointment (i.e. Calazime or extra strength Desitin TID and prn incontinence. Tuck non woven gauze under penis daily prn protection and prn soilage.
Sacrum- Clean with normal saline or soap and water. Apply Santyl ointment prn necrotic tissue, apply silicone border foam. Change daily and prn loosened dressing/soilage.
Right heel- skin prep (allow to dry) and adhesive foam. Change q 3 days and PRN loosened dressing.
Air mattress
Pressure redistributing chair cushion (i.e. Air chair cushion).
Elevate heels off bed with pillow/s.
Left pleural effusion :
Please do Chest Xray 2 views if patient develops 1. Dyspnea or 2. Requiring incremental oxygen or 3. Develop new fever episodes.
Please call [facility] OR [facility] Interventional radiology department to arrange a thoracentesis if needed.
[facility] department Number : [phone] ext #[phone].
Instructions: Parathyroidectomy, Conventional (DC), Pleural effusion - Discharge instructions, *PCP/Other [employer] Heart Failure Instructions
Referrals:
UNKNOWN - PT DOES,NOT KNOW [Family Provider]
Prescriptions:
New
rosuvastatin 20 mg Tablet
20 mg feeding tube QPM 30 Days Qty: 30 0RF
losartan 25 mg Tablet
25 mg feeding tube SuTuThSa@1900 Qty: 30 0RF
folic acid 1 mg Tablet
1 mg feeding tube DAILY Qty: 30 0RF
midodrine 10 mg tablet
5 mg PO TID PRN (Reason: For SBP < 100) Qty: 14 0RF
oxycodone 5 mg tablet
5 mg feeding tube Q8H PRN (Reason: Mod sev pain) Qty: 14 0RF
Continued
acetaminophen [Tylenol] 325 mg Tablet
650 mg feeding tube Q6HPRN PRN (Reason: MILD PAIN)
albuterol sulfate 2.5 mg /3 mL (0.083 %) Solution For Nebulization
2.5 mg INHALATION R Q4HPRN PRN (Reason: SOB)
aspirin 81 mg Tablet,Delayed Release (Dr/Ec)
81 mg feeding tube DAILY
bupropion HCl 100 mg Tablet
150 mg PO BID
tamsulosin [Flomax] 0.4 mg Capsule
0.4 mg PO MOWEFR
bisacodyl [Dulcolax (bisacodyl)] 10 mg Suppository
10 mg DE DAILYPRN PRN (Reason: IF NO BM AFTR SUROLOSE)
folic acid 1 mg Tablet
2 mg feeding tube HS
Refresh Optive 0.5-0.9 % Drops
1 drp BOTH EYES Q2HPRN PRN (Reason: dry eyes )
melatonin 5 mg Tablet
5 mg feeding tube HS
sevelamer carbonate [Renvela] 0.8 gram Powder In Packet
0.8 g feeding tube AC
Discontinued
carvedilol [Coreg] 6.25 mg Tablet
6.25 mg feeding tube BID
hydralazine 25 mg Tablet
25 mg feeding tube QID
amlodipine [Norvasc] 10 mg Tablet
10 mg feeding tube DAILY
losartan 25 mg Tablet
25 mg feeding tube SuTuThSa@1900
bumetanide [Bumex] 1 mg Tablet
1 mg feeding tube MOWEFR
bumetanide [Bumex] 1 mg Tablet
4 mg feeding tube LORENZO@0800
rosuvastatin [Crestor] 5 mg Tablet
5 mg feeding tube HS
cinacalcet 60 mg Tablet
120 mg PO MOWE@1300
oseltamivir [Tamiflu] 30 mg Capsule
30 mg feeding tube MOWEFR
Rx Instructions:
FOR 5 DAYS UNTIL 07/01/24 VIA PEG TUBE
Pantoprazole Oral Packet 2mg/1ml
10 mg feeding tube DAILY
Discharge Orders:
Discharge Patient (As Directed); Ordered 08/18/24
Ordered By: Benedict Villarreal
Discharge Date and Time
Discharge Date/Time: 08/18/24 13:26
Print Language: SAMI
[2024-08-18 12:05] LABS: Glucose - Point of Care 106 mg/dl (70-99)
--- NOTE | 2024-08-18 12:11 | W.PN.NEPH.PH ---
Today's Communication / Plan
-
Dialysis
Assessment/Plan
-
Impression:
ESRD MWF
Hypoxia/left lung atelectasis versus pneumonia
Large left pleural effusion s/p thoracentesis 06/21
CHF
Anemia
Hypertension hx
Hyponatremia
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
Hyperphosphatemia
PEG
Non-ST elevation SD
History of stroke with subsequent left hemiparesis dysarthria and dysphagia
Tunneled right HD IJ catheter
Chronic impacted right proximal humerus fracture
hypercalcemia
Plan:
TTS at [place]
off sensipar as serum calcium now normalized following parathyroidectomy surgery 08/04
Next dialysis will be inpatient or outpatient pending discharge
-
-
Date of Service: August 18, 2024
CC / HPI / ROS
-
Chief Complaint:
ESRD
History of Present Illness:
hemodynamically stable
Hemodialysis on Saturday schedule
s/p PTX left adenoma 08/04 with serum calcium now normal
bp stable
Review of Systems:
mild sob intermittently , has cough seem chronic
No fever
off supplemental O2
PEG feeds on
Labs
-
Labs:
WBC 11.9 10^3/uL (4.8-10.8) H 08/17/24 07:36
RBC 3.21 10^6/uL (4.70-6.10) L 08/17/24 07:36
Hgb 9.7 g/dL (13.0-18.0) L 08/17/24 07:36
Hct 29.3 % (39.0-52.0) L 08/17/24 07:36
Plt Count 284 10^3/uL (130-400) 08/17/24 07:36
Sodium 133 mmol/L (135-145) L 08/17/24 07:36
Potassium 3.7 mmol/L (3.5-5.1) 08/17/24 07:36
Chloride 94 mmol/L (98-107) L 08/17/24 07:36
Carbon Dioxide 27 mmol/L (22-30) 08/17/24 07:36
BUN 85 mg/dl (9-20) H 08/17/24 07:36
Creatinine 4.2 mg/dL (0.7-1.3) H* 08/17/24 07:36
eGFR 14.56 08/17/24 07:36
Glucose 97 mg/dl (70-99) 08/17/24 07:36
Calcium 8.7 mg/dl (8.4-10.2) 08/17/24 07:36
Phosphorus 4.7 mg/dl (2.5-4.5) H 08/10/24 07:52
Ixl-O-Mngrchjswag Pept > 64247 pg/ml 06/20/24 18:13
Albumin 3.6 g/dl (3.5-5.0) 08/12/24 12:34
Physical Exam
-
Vital Signs:
Vital Signs
Temp Pulse Resp BP Pulse Ox
97.7 F 78 14 130/77 100
08/18/24 11:00 08/18/24 11:00 08/18/24 11:00 08/18/24 11:00 08/18/24 11:00
Cardiovascular:: Regular rate and rhythm
Respiratory:: Bilateral: Coarse
Lung Excursion:: Normal
Abdomen:: Nontender and Soft
Extremity Edema:: None: Bilateral:
Bender Catheter: No
Other Findings::
tunneled catheter site
mild redness at anchoring suture area, no drainage
== END 2024-08-18 13:26 | DRG 981 ==
LOC: 2 SOUTH 20:24
PROVIDERS: Anesthesiology; Hospitalist; Internal Medicine; Internal Medicine Critical Care Medicine; Internal Medicine Nephrology; Nurse Practitioner Family; Nurse Practitioner Primary Care; Physician Assistant; Radiology Diagnostic Radiology; Radiology Vascular & Interventional Radiology; Specialist; ADMITTING PHYSICIAN Internal Medicine; ATTENDING PHYSICIAN Hospitalist; CONSULT PHYSICIAN Internal Medicine Cardiovascular Disease; CONSULT PHYSICIAN Internal Medicine Gastroenterology; CONSULT PHYSICIAN Specialist; CONSULT PHYSICIAN Surgery; EMERGENCY PHYSICIAN Emergency Medicine; OTHER PHYSICIAN Physical Medicine & Rehabilitation
PROC: 0W9B3ZZ Drainage of Left Pleural Cavity, Percutaneous Approach (ICD-10-PCS; 2024-06-21)
PROC: 0W993ZZ Drainage of Right Pleural Cavity, Percutaneous Approach (ICD-10-PCS; 2024-06-22)
PROC: 5A1D70Z Performance of Urinary Filtration, Intermittent, Less than 6 Hours Per Day (ICD-10-PCS; 2024-06-22)
PROC: 0BH17EZ Insertion of Endotracheal Airway into Trachea, Via Natural or Artificial Opening (ICD-10-PCS; 2024-06-23)
PROC: 5A12012 Performance of Cardiac Output, Single, Manual (ICD-10-PCS; 2024-06-23)
PROC: 5A1945Z Respiratory Ventilation, 24-96 Consecutive Hours (ICD-10-PCS; 2024-06-23)
PROC: 30233N1 Transfusion of Nonautologous Red Blood Cells into Peripheral Vein, Percutaneous Approach (ICD-10-PCS; 2024-06-23)
PROC: 03HY32Z Insertion of Monitoring Device into Upper Artery, Percutaneous Approach (ICD-10-PCS; 2024-06-24)
PROC: 0GTP0ZZ Resection of Left Inferior Parathyroid Gland, Open Approach (ICD-10-PCS; 2024-08-04)
DX: J96.21 Acute and chronic respiratory failure with hypoxia (principal); E43 Unspecified severe protein-calorie malnutrition; I21.4 Non-ST elevation (NSTEMI) myocardial infarction; N18.6 End stage renal disease; I46.9 Cardiac arrest, cause unspecified; J69.0 Pneumonitis due to inhalation of food and vomit; I50.33 Acute on chronic diastolic (congestive) heart failure; J15.1 Pneumonia due to Pseudomonas; I13.2 Hypertensive heart and chronic kidney disease with heart failure and with stage 5 chronic kidney disease, or end stage renal disease; J91.8 Pleural effusion in other conditions classified elsewhere; T17.590A Other foreign object in bronchus causing asphyxiation, initial encounter; K92.1 Melena; Z68.1 Body mass index [BMI] 19.9 or less, adult; E87.1 Hypo-osmolality and hyponatremia; J98.19 Other pulmonary collapse; I69.354 Hemiplegia and hemiparesis following cerebral infarction affecting left non-dominant side; J98.11 Atelectasis; N25.81 Secondary hyperparathyroidism of renal origin; R64 Cachexia; G93.40 Encephalopathy, unspecified; W44.F9XA Other object of natural or organic material, entering into or through a natural orifice, initial encounter; D35.1 Benign neoplasm of parathyroid gland; E21.0 Primary hyperparathyroidism; E21.2 Other hyperparathyroidism; J98.09 Other diseases of bronchus, not elsewhere classified; R00.1 Bradycardia, unspecified; D63.1 Anemia in chronic kidney disease; R73.9 Hyperglycemia, unspecified; L89.152 Pressure ulcer of sacral region, stage 2; Z66 Do not resuscitate; I69.391 Dysphagia following cerebral infarction; E16.2 Hypoglycemia, unspecified; I25.10 Atherosclerotic heart disease of native coronary artery without angina pectoris; K21.9 Gastro-esophageal reflux disease without esophagitis; N40.0 Benign prostatic hyperplasia without lower urinary tract symptoms; I44.0 Atrioventricular block, first degree; E03.9 Hypothyroidism, unspecified; R68.0 Hypothermia, not associated with low environmental temperature; R06.6 Hiccough; E78.00 Pure hypercholesterolemia, unspecified; I95.9 Hypotension, unspecified; Z75.1 Person awaiting admission to adequate facility elsewhere; F32.A Depression, unspecified; Z93.1 Gastrostomy status; Z99.2 Dependence on renal dialysis; Z99.81 Dependence on supplemental oxygen; Z11.52 Encounter for screening for COVID-19; Z91.81 History of falling; Z79.82 Long term (current) use of aspirin
CPT/HCPCS: 88305; 88332; 32555; 36600; 71045; 71046; 71250; 71260; 74177; 76536; 76604; 80048; 80051; 80053; 80069; 82150; 82164; 82306; 82330; 82652; 82805; 82945; 82962; 83519; 83605; 83615; 83735; 83880; 83970; 83986; 84100; 84132; 84155; 84157; 84165; 84302; 84443; 84478; 84484; 85014; 85018; 85025; 85027; 85730; 86704; 86706; 86803; 86850; 86900; 86901; 86920; 87015; 87040; 87070; 87077; 87102; 87116; 87186; 87205; 87324; 87340; 87449; 87502; 87811; 88112; 88331; 88341; 88342; 89051; 93005; 93306; 94002; 94003; 94640; 94668; 96365; 96375; 96376; 97110; 97112; 97116; 97163; 97167; 97530; 97535; 99291; C1776; G0257; J0630; J2430; P9016; P9047; Q5106; Q9967

== ENCOUNTER 2024-09-10 22:48 | Inpatient (IN) | payer MEDICARE, SELFPAY ==
[2024-09-10 16:50] VITALS: BMI 17.5
[2024-09-10 16:51] VITALS: BP 137/85
[2024-09-10 18:34] LABS: Hematocrit 32.9 % (39.0-52.0); Hemoglobin 10.6 g/dL (13.0-18.0); Mean Corp Hgb Conc. 32.2 g/dL (33.0-37.0); Mean Corpuscular Volume 92.2 fL (80.0-94.0); Nucleated Red Blood Cells % 0 % (-); Platelet Count 237 10^3/uL (130-400); Red Cell Dist. Width 17.2 % (11.5-14.5)
[2024-09-10] MEDS: DILAUDID 0.5 MG IV ×2 (18:38→20:33)
[2024-09-10 18:47] LABS: ALT (SGPT) 16 U/L (0-50); AST (SGOT) 25 U/L (17-59); Albumin 4.2 g/dl (3.5-5.0); Alkaline Phosphatase 257 U/L (38-126); Blood Urea Nitrogen 19 mg/dl (9-20); Calcium 9.1 mg/dl (8.4-10.2); Carbon Dioxide 27 mmol/L (22-30); Chloride 100 mmol/L (98-107); Estimated Creatinine Clearance 23 ml/min; Glucose 60 mg/dl (70-99); Potassium 4.6 mmol/L (3.5-5.1); Sodium 137 mmol/L (135-145); Total Protein 7.8 g/dl (6.3-8.2); eGFR 28.49
--- NOTE | 2024-09-10 20:28 | ED.GENMED ---
History of Present Illness
General
Chief Complaint: Skin Problem
Source: patient
Exam Limitations: none
Time Seen by Provider: 09/10/24 17:11
History of Present Illness
History of Present Illness:
69-year-old male presents complaining of increased pain to the left heel. He was seen by wound care at his facility today was sent here for necrotic heel wound. He is not diabetic but he has chronic kidney disease end-stage on dialysis Saturday
Saturday. He had a session today. He denies fevers or vomiting. He recently did have a stroke. He was also recently in this hospital for ventilator dependent respiratory failure. No other complaints at this time
Phy Exam
Physical Exam
Physical Exam:
General: Well-appearing male no acute respiratory
HEENT: Normal cephalic atraumatic
Heart: Regular rate and rhythm no murmurs
Lungs: Clear no wheeze
Skin: Necrotic wound posterior lateral aspect left heel. This is painful. There is also areas of necrosis of the toes.
Vascular: There is a dopplerable pulse in the dorsal aspect of the left foot
Course
Orders/Labs/Results
Orders:
Orders
09/10/24 17:59
HYDROmorphone [Dilaudid] 0.5 mg IV NOW STA
CR Heel/os Calcis - Left 2 Vw* Urgent
Comment:
Reason For Exam: pain, please do portable
09/10/24 18:00
Blood Culture Q30M
APRIL Source: Blood/Venous
Specimen Description:
09/10/24 18:23
Complete Blood Count/With Diff Urgent
Comprehensive Metabolic Panel Urgent
Blood Culture Q30M
APRIL Source: Blood/Venous
Specimen Description:
09/10/24 20:26
HYDROmorphone [Dilaudid] 0.5 mg IV NOW STA
Abnormal Lab Results
09/10/24
18:23
WBC 12.0 H 10^3/uL
(4.8-10.8)
RBC 3.57 L 10^6/uL
(4.70-6.10)
Hgb 10.6 L g/dL
(13.0-18.0)
Hct 32.9 L %
(39.0-52.0)
MCHC 32.2 L g/dL
(33.0-37.0)
RDW 17.2 H %
(11.5-14.5)
Absolute Neuts (auto) 8.5 H 10^3/uL
(1.4-6.5)
Absolute Monos (auto) 0.7 H 10^3/uL
(0.1-0.6)
Absolute Eos (auto) 1.4 H 10^3/uL
(0-0.7)
Lymphocytes % 10.7 L %
(20.5-51.1)
Eosinophils % 11.9 H %
(0-6)
Creatinine 2.4 H mg/dL
(0.7-1.3)
Glucose 60 L mg/dl
(70-99)
Alkaline Phosphatase 257 H U/L
(38-126)
09/10/24 18:23
09/10/24 18:23
Vital Signs
Initial and Last Documented VS:
Initial Vital Signs
Temp Pulse Resp BP Pulse Ox
98.4 F 67 16 137/85 100
09/10/24 16:51 09/10/24 16:51 09/10/24 16:51 09/10/24 16:51 09/10/24 16:51
Last Documented Vital Signs
Temp Pulse Resp BP Pulse Ox
98.4 F 67 16 137/85 100
09/10/24 16:51 09/10/24 16:51 09/10/24 16:51 09/10/24 16:51 09/10/24 16:51
MDM/Problems Addressed
Differential Diagnosis Includes:
Necrotic wound left heel. Consider underlying infection or osteomyelitis. He does have a dopplerable pulse. He was sent in by the holistic specialist for admission. X-ray of the left heel performed
X-ray negative for underlying bony abnormality. Labs with mild leukocytosis. Concern for necrotic wound may need further work or debridement. Will keep in hospital. He has required several doses of pain medication
*Pulse Oximetry
SaO2: 100
Oxygen Mode of Delivery: Room air
Patient hypoxic: no
*Critical Care Note
Total Time (30-74mins, 75-104mins- exclusive of procedures): Not Applicable
ED Attending Note
-
Portions of this chart may have been created with voice recognition software.� Occasional wrong word or��sound alike� substitutions may have occurred due to the inherent limitations of voice recognition software.
Discharge Plan
Departure
Patient Disposition: Admit
Date of Disposition: 09/10/24
Time of Disposition: 20:35
Presentation/result/management discussed w/ accepting MD/DO: Hospitalist
Discharge Problem:
necrotic wound
Prescriptions:
No Action
albuterol sulfate 2.5 mg /3 mL (0.083 %) Solution For Nebulization
2.5 mg INHALATION R Q4HPRN PRN (Reason: SOB)
aspirin 81 mg Tablet,Delayed Release (Dr/Ec)
81 mg feeding tube DAILY
bupropion HCl 100 mg Tablet
150 mg PO BID
Rx Instructions:
via PEG-TUBE.
tamsulosin [Flomax] 0.4 mg Capsule
0.4 mg PO MOWEFR
Rx Instructions:
via PEG-TUBE.
bisacodyl [Dulcolax (bisacodyl)] 10 mg Suppository
10 mg NH DAILYPRN PRN (Reason: if no BM in 4 days)
Patient Comments:
09/10/2024, give on day 5.
melatonin 5 mg Tablet
5 mg feeding tube HS
sevelamer carbonate [Renvela] 0.8 gram Powder In Packet
0.8 g feeding tube AC
losartan 25 mg Tablet
25 mg feeding tube SuTuThSa@1900 Qty: 30 0RF
folic acid 1 mg Tablet
1 mg feeding tube DAILY Qty: 30 0RF
docusate sodium 50 mg/5 mL Liquid
100 mg feeding tube BID
sennosides [senna] 8.6 mg Tablet
17.2 mg feeding tube DAILY
ipratropium-albuterol 0.5 mg-3 mg(2.5 mg base)/3 mL Solution For Nebulization
3 ml INHALATION R TID
lidocaine 4 % Adhesive Patch,Medicated
1 patch TOPICAL BID
acetaminophen [Tylenol Extra Strength] 500 mg Tablet
1,000 mg feeding tube TID
metoclopramide HCl [Reglan] 5 mg Tablet
5 mg feeding tube TID
magnesium hydroxide [Milk of Magnesia] 400 mg/5 mL Suspension
30 ml feeding tube DAILYPRN PRN (Reason: if no BM in 3 days)
Ntjah-Nv-Ooz Enema 19-7 gram/118 mL Enema
118 ml NH DAILYPRN PRN (Reason: if no BM in 5 days)
Patient Comments:
09/10/2024, give on day 6.
ondansetron 4 mg Tablet,Disintegrating
4 mg feeding tube Q8HPRN PRN (Reason: nausea/vomiting)
lansoprazole 30 mg Tablet,Disintegrat, Delay Rel
30 mg feeding tube DAILY
Artificial Tears(pvalch-povid) 0.5-0.6 % Drops
1 drp BOTH EYES Q2HPRN PRN (Reason: dry eyes)
Banana Flakes
1 packet feeding tube DAILY
oxycodone 5 mg tablet
5 mg feeding tube Q8HPRN PRN (Reason: moderate to severe pain)
midodrine 10 mg tablet
10 mg feeding tube Q8HPRN PRN (Reason: For SBP < 100)
rosuvastatin 20 mg tablet
20 mg feeding tube DAILY
Referrals:
ISRAEL ROBERTS MD [Family Provider, Internal Medicine]
Interventions
Interventions:
*Risk Screen - Suicide Last Done: 09/10/24 16:51
*General Assessment Last Done: 09/10/24 16:51
*Neglect/Abuse Screening Last Done: 09/10/24 16:51
*ED- Fall Risk Assessment Last Done: 09/10/24 17:33
*ED COVID-19 Vaccine History Last Done: 09/10/24 17:33
ED-Skin Assessment Last Done: 09/10/24 17:39
Discharge Date and Time
Print Language: MONGOLIAN
--- NOTE | 2024-09-10 20:42 | HPS.HSE ---
Family Physician
-
Family Physician: ISRAEL ROBERTS MD
Chief Complaint
-
Left Heel Pain with Worsening Wound
History of Present Illness
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 Patient was seen by the wound care team at
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 Patient reports increasing pain in the left heel. He denies fevers, sweats or chills.
Medical History
Past Medical History
Past Medical History: Reports Other
Additional Past Medical History:
CVA with Residual Left Hemiparesis, and Dysphagia s/p PEG Tube
Carotid Artery Disease s/p Right CEA
ESRD on HD
Essential Hypertension
Hyperlipidemia
GERD / GI Bleed
BPH
Depression
Past Surgical History: Reports Other
Additional Past Surgical History:
Parathyroidectomy
Right Carotid Endarterectomy
Social History
Tobacco: Non-smoker
Living: Long Term
Family History
Family History: Not pertinent
Allergies / Home Medications
Allergies reflects when Allergies were last updated in [facility].
Home Medications with original date entered in [facility]
Allergy/Medication List:
Allergies
Allergy/AdvReac Type Severity Reaction Status Date / Time
No Known Allergies Allergy Unverified 09/10/24 17:01
Home Medications
albuterol sulfate 2.5 mg/3 mL (0.083 %) solution for nebulization 2.5 mg inhalation R Q4HPRN PRN SOB 06/20/24
aspirin 81 mg tablet,delayed release 81 mg feeding tube DAILY Blood Clot Prevention/Tx 06/20/24
bisacodyl 10 mg rectal suppository (Dulcolax (bisacodyl)) 10 mg MS DAILYPRN PRN if no BM in 4 days 06/20/24
bupropion HCl 100 mg tablet 150 mg PO BID VIA PEG-TUBE 06/20/24
melatonin 5 mg tablet 5 mg feeding tube HS Sleep 06/20/24
sevelamer carbonate 0.8 gram oral powder packet (Renvela) 0.8 g feeding tube AC Kidney Disease 06/20/24
tamsulosin 0.4 mg capsule (Flomax) 0.4 mg PO MOWEFR VIA PEG-TUBE 06/20/24
folic acid 1 mg tablet 1 mg feeding tube DAILY #30 tabs 08/17/24
losartan 25 mg tablet 25 mg feeding tube SuTuThSa@1900 #30 tabs 08/17/24
Banana Flakes 1 packet feeding tube DAILY 09/10/24
acetaminophen 500 mg tablet (Tylenol Extra Strength) 1,000 mg feeding tube TID 3000 mg 09/10/24
docusate sodium 50 mg/5 mL oral liquid 100 mg feeding tube BID 09/10/24
ipratropium 0.5 mg-albuterol 3 mg (2.5 mg base)/3 mL nebulization soln 3 ml inhalation R TID 09/10/24
lansoprazole 30 mg delayed release,disintegrating tablet 30 mg feeding tube DAILY 09/10/24
lidocaine 4 % topical patch 1 patch topical BID apply to lower back 09/10/24
magnesium hydroxide 400 mg/5 mL oral suspension (Milk of Magnesia) 30 ml feeding tube DAILYPRN PRN if no BM in 3 days 09/10/24
metoclopramide HCl 5 mg tablet (Reglan) 5 mg feeding tube TID 09/10/24
midodrine 10 mg tablet 10 mg feeding tube Q8HPRN PRN For SBP < 100 09/10/24
ondansetron 4 mg disintegrating tablet 4 mg feeding tube Q8HPRN PRN nausea/vomiting 09/10/24
oxycodone 5 mg tablet 5 mg feeding tube Q8HPRN PRN moderate to severe pain 09/10/24
polyvinyl alcohol-povidone 0.5 %-0.6 % eye drops (Artificial Tears (polyvinyl alcohol/povidone)) 1 drp BOTH EYES Q2HPRN PRN dry eyes 09/10/24
rosuvastatin 20 mg tablet 20 mg feeding tube DAILY High cholesterol 09/10/24
sennosides 8.6 mg tablet (senna) 17.2 mg feeding tube DAILY 09/10/24
sodium phosphates 19 gram-7 gram/118 mL enema (Kdiip-Ez-Bbk Enema) 118 ml MS DAILYPRN PRN if no BM in 5 days 09/10/24
Review of Systems
-
A 12 point ROS was completed and negative except as noted: Yes
Constitutional: Denies Fever
Respiratory: Denies Cough or Trouble Breathing
Cardiac: Denies Chest Pain or Palpitations
Physical Exam
Vital Signs
Vital Signs
Temp Pulse Resp BP Pulse Ox
98.4 F 67 16 137/85 100
09/10/24 16:51 09/10/24 16:51 09/10/24 16:51 09/10/24 16:51 09/10/24 20:31
Physical Exam
General: Comfortable and Conversant
HEENT: Anicteric and Moist mucous membranes
Respiratory: Clear and Non Labored Respirations
Cardiac: S1/S2 and Regular Rhythm
GI: Soft, Non Tender and Peg Tube
Rectal: Deferred by Provider
Musculoskeletal: No Clubbing, No Cyanosis and Other (Right dorsalis pedis pulse and posterior tibial pulse by Doppler; Left posterior tibial pulse by Doppler (ED notes indicate left dorsalis pedis pulse by doppler but I was unable to find doppler
pulse during my evaluation))
Skin: Warm, Dry and Other (Left toe wound progressed compared to prior imaging from July; Left heel wound with area or purple discoloration)
Neuro: Awake, Alert, Oriented and Other (Left Hemiparesis)
Psych: Calm
Laboratory Results
-
09/10/24 18:23
09/10/24 18:23
Laboratory Results
Total Bilirubin 0.9 mg/dl (0.2-1.3) 09/10/24 18:23
AST 25 U/L (17-59) 09/10/24 18:23
ALT 16 U/L (0-50) 09/10/24 18:23
Alkaline Phosphatase 257 U/L (38-126) H 09/10/24 18:23
Data Reviewed
-
Lab Data: Labs Reviewed by me
Impression/Plan
-
Worsening Left Foot Wounds
-Patient reports worsening pain raising concern that wounds are vascular in nature
-Consult Vascular Surgery
-Check BREANA
-Consult Wound Care
-Hold on antibiotics as wound do not appear actively infected
-Check ESR
CVA with Residual Left Hemiparesis, and Dysphagia s/p PEG Tube
Carotid Artery Disease s/p Right CEA
-Patient is able to transfer to wheelchair with ophthalmic assistant
-He remains NPO except ice chips with tube feedings via PEG
-Continue aspirin
ESRD on HD TuThSa
-Consult Nephrology
-Monitor Is&Os - Patient reports he still makes urine
-continue Renvela
Essential Hypertension
-Continue losartan
Hyperlipidemia
-Continue rosuvastatin
GERD / GI Bleed
-Continue lansoprazole
BPH
-Continue Flomax
Depression
-Continue bupropion
DVT proph: SC Heparin
Code Status: Full Code
--- NOTE | 2024-09-10 20:46 | W.PN.UPDATE ---
Update Note
Progress Note Update
Patient seen in conjunction with NIGHT SHIFT SUPERVISOR. I agree the findings on history and physical. I concur with the assessment and plan unless stated otherwise.
Briefly this is a 69-year-old with past medical history of end-stage renal disease on hemodialysis, CVA with left-sided paresis, who was recently hospitalized with a prolonged hospital course where he was found to have ventilator associated
pneumonia, recurrent pleural effusion, recurrent mucous plugging, aspiration status post PEG tube placement, protein calorie malnutrition, primary hyperparathyroidism status post minimally invasive parathyroidectomy, chronic left heel pressure ulcer
now brought in from care facility with with necrotic wound in the left lower extremity. He is not diabetic but he has chronic kidney disease end-stage on dialysis Saturday. He had a session today. He denies fevers or vomiting.
In the emergency department patient was afebrile, blood pressure was 137/85 with a pulse of 87 was satting 100% on room air.
X-ray of the foot shows no evidence of foreign body, fluid collection or osteomyelitis.
CBC was unremarkable with a white count of 12 similar to prior hemoglobin and platelets when stable. Electrolytes were unremarkable. BUN and creatinine were unremarkable for age ESRD. Glucose was 60. Alk phos was elevated at 225. Albumin has
normalized at 4.2. Calcium was 9.1.
Assessment and plan
Patient with chronic left lower extremity pressure ulcer which appears to have developed necrosis/infection from his heel ulcer. No evidence of osteomyelitis on x-ray. No evidence of fluid collection. He has no history of diabetes. He does have
ESRD but no known peripheral vascular disease. His pulses appear intact on doppler examination.
[2024-09-10 20:54] VITALS: BP 138/84
[2024-09-10 21:23] LABS: C-Reactive Protein 79.20 mg/L (0.0-10.00)
[2024-09-10 22:27] VITALS: BP 137/86
[2024-09-10 22:59] VITALS: BP 153/90; BMI 16.2
--- NOTE | 2024-09-10 23:10 | PTCARENOTE ---
Pt admitted to 328 from ED and pulled over to bed. AAOx3, flat affect, able to make needs known. Complains of 8/10 L heel pain. L heel nectrotic and scabbed, off loaded with pillow. static air overlay on bed. PRN dilaudid given. Pt offered to be
turned but refused at this time, will continue to encourage and educate.
[2024-09-10 23:26] VITALS: BMI 16.2
[2024-09-10] MEDS: MELATONIN 5 MG TUBE (23:47)
[2024-09-10] MEDS: DILAUDID 0.25 MG IV (23:47)
[2024-09-10] MEDS: HEPARIN 5000 UNITS SC (23:48)
[2024-09-10] MEDS: REGLAN 5 MG TUBE (23:56)
[2024-09-11 02:15] LABS: Glucose - Point of Care 52 mg/dl (70-99)
--- NOTE | 2024-09-11 02:25 | W.PN.UPDATE ---
Update Note
Progress Note Update
~2 am Patient repeat accucheck on arrival to unit result Accucheck 52. Ordered Dextrose 50% syringe, 12.5 grams IV Q15 minutes PRN per hypoglycemic protocol. Patient on tube feeds that are to start w/breakfast. Ordered Accucheck Q6H to monitor blood
glucose levels.
[2024-09-11] MEDS: DEXTROSE 50% SYRINGE 12.5 GRAMS IV ×3 (02:35→09:07)
[2024-09-11 03:00] LABS: Glucose - Point of Care 107 mg/dl (70-99)
[2024-09-11] MEDS: DILAUDID 0.25 MG IV ×4 (05:47→20:37)
[2024-09-11 05:54] LABS: Glucose - Point of Care 54 mg/dl (70-99)
[2024-09-11] MEDS: DUONEB 3 ML INH ×3 (06:10→17:40)
[2024-09-11 06:21] LABS: Glucose - Point of Care 112 mg/dl (70-99)
[2024-09-11 06:25] LABS: Hematocrit 27.8 % (39.0-52.0); Hemoglobin 8.9 g/dL (13.0-18.0); Mean Corp Hgb Conc. 32.0 g/dL (33.0-37.0); Mean Corpuscular Volume 93.6 fL (80.0-94.0); Platelet Count 215 10^3/uL (130-400); Red Cell Dist. Width 16.8 % (11.5-14.5)
[2024-09-11 06:33] VITALS: BMI 15.5
[2024-09-11 06:56] LABS: Blood Urea Nitrogen 25 mg/dl (9-20); Calcium 9.0 mg/dl (8.4-10.2); Carbon Dioxide 26 mmol/L (22-30); Chloride 101 mmol/L (98-107); Estimated Creatinine Clearance 17 ml/min; Glucose 125 mg/dl (70-99); HDL Cholesterol 54 mg/dl; LDL Cholesterol, Calculated 35 mg/dl; Potassium 4.3 mmol/L (3.5-5.1); Sodium 135 mmol/L (135-145); Very Low Density Lipoprotein 18 mg/dl (0-30); eGFR 22.71
--- NOTE | 2024-09-11 06:59 | W.PN.HOSP.TC ---
Today's Communication/Plan
-
see a/p
Assessment / Plan
Assessment / Plan
Physical Exam
General: Comfortable and Conversant
HEENT: Anicteric and Moist mucous membranes
Respiratory: Clear and Non Labored Respirations
Cardiac: S1/S2 and Regular Rhythm
GI: Soft, Non Tender and Peg Tube
Musculoskeletal: No Clubbing, No Cyanosis
Skin: Warm, Dry, Lt foot dressing dry intact
Neuro: Left Hemiparesis, AOx3 conversant coherent
Psych: Calm
Patient is a 69 y/o male past medical history of CVA with residual Lt hemiparesis and dysphagia s/p PEG Tube, ESRD, Hypertension, Hyperlipidemia and Hypothyroidism who presents with worsening left heel wound. Patient was seen by the wound care team
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 Patient reports increasing pain in the left heel. Denied fevers, sweats or chills.
Worsening Left Foot Wounds
-Patient reports worsening pain raising concern that wounds are vascular in nature
-Consult Vascular Surgery appreciated planned for Angioplasty tentatively Saturday
-BREANA appreciated Findings compatible with infrapopliteal disease.
-Consult Wound Care appreciated
-Hold on antibiotics as wound do not appear actively infected
-ESR
CVA with Residual Left Hemiparesis, and Dysphagia s/p PEG Tube
Carotid Artery Disease s/p Right CEA
-Patient is able to transfer to wheelchair with timber management assistant
-He remains NPO except ice chips with tube feedings via PEG
-Continue aspirin
ESRD on HD TuThSa
-Consult Nephrology appreciated
-Monitor Is&Os - Patient reports he still makes urine
-continue Renvela
Essential Hypertension
-Continue losartan
Hyperlipidemia
-Continue rosuvastatin
GERD / GI Bleed
-Continue lansoprazole
BPH
-Continue Flomax
Depression
-Continue bupropion
DVT proph: SC Heparin
Code Status: Full Code
Discussed with patient and patient's daughter Tawnya
I spent a total of 45 minutes with the patient or on the floor. More than 50% of this time involved counseling and coordination of care.
Anticipated Discharge: > 48 hours
Subjective/Interval History
-
Date of Service: September 11, 2024
Left heel pain persists. Patient otherwise appears relatively comfortable at this time. AOx3 conversant coherent.
Objective Data
-
Labs:
Laboratory Results
09/11/24
06:09
WBC 9.6
Hgb 8.9 L
Hct 27.8 L
Plt Count 215
Sodium 135
Potassium 4.3
Chloride 101
Carbon Dioxide 26
BUN 25 H
Creatinine 2.9 H
Glucose 125 H
Calcium 9.0
Vital Signs:
Vital Signs
Temp Pulse Resp BP Pulse Ox
97.8 F 95 16 153/90 93
09/10/24 22:59 09/11/24 06:10 09/11/24 06:10 09/10/24 22:59 09/11/24 06:10
[2024-09-11 08:05] VITALS: BP 113/76
[2024-09-11] MEDS: CRESTOR 20 MG TUBE (08:53)
[2024-09-11] MEDS: PREVACID 30 MG TUBE (08:53)
[2024-09-11] MEDS: HEPARIN 5000 UNITS SC ×3 (08:53→23:18)
[2024-09-11] MEDS: COLACE LIQUID 100 MG TUBE ×2 (08:53→20:37)
[2024-09-11] MEDS: LOW STRENGTH ASPIRIN 81 MG TUBE (08:53)
[2024-09-11] MEDS: REGLAN 5 MG TUBE ×3 (08:54→22:09)
[2024-09-11] MEDS: WELLBUTRIN REGULAR RELEASE 150 MG TUBE ×2 (08:55→20:37)
[2024-09-11] MEDS: SEVELAMER CARBONATE 0.8 GM TUBE ×2 (08:55→15:41)
[2024-09-11] MEDS: SENOKOT 17.2 MG TUBE (08:55)
[2024-09-11] MEDS: LIDOCAINE 4% PATCH 1 PATCH TOPICAL (08:58)
[2024-09-11] MEDS: FLOMAX 0.4 MG TUBE (09:00)
[2024-09-11] MEDS: ROXICODONE 5 MG TUBE ×2 (09:00→18:04)
[2024-09-11 09:03] LABS: Glucose - Point of Care 66 mg/dl (70-99)
[2024-09-11 09:45] LABS: Glucose - Point of Care 118 mg/dl (70-99)
--- NOTE | 2024-09-11 09:50 | WOUNDNOTE ---
L HEEL (LATERAL POSTERIOR)
--- NOTE | 2024-09-11 09:53 | WOUNDNOTE ---
[facility] RN note: Patient admitted with L heel necrotic ulcer, L toe ulcers. Patient admitted from SNF.
See H&P for complete history.
PMH: CVA with hemiparesis, dysphagia, PEG, HTN, R CEA, GI bleed, BPH.
Wound Location and type/assessment: Patient admitted with: L lateral posterior dry black eschar suspect r/t PAD, L dorsal great, 2nd, 3rd, 4th toe dry brown necrotic ulcers suspect r/t PAD. R heel blanchable red. Sacral dry scab, healing stage 2.
Coccyx small dry scabs, healing stage 2. +Palpable R pedal pulse. L heel pedal pulse heard faintly via portable Doppler. Vascular on consult. Arterial Doppler on order.
Appetite: NPO. Tube feeding.
Pressure redistribution devices in place: Static air overlay. Patient can turn self on L side in bed.
Plan: Silicone border foam changed on sacral/coccyx. Skin prep applied to L heel ulcer. Slipper sock reapplied. Foam dressing changed on R heel. TruVue lite boots applied. Air chair cushion under heels/boots. Suspect patient sometimes digs his heel
to move up in bed. Patient turned to L semi side lying position.
Will confirm orders with Dr. Collazo and discussed with RODRIGO Mora.
Care plan to be updated and will follow as needed.
Note to case management of equipment requested for discharge: Air mattress at SNF if not already in place.
Recommend follow up at wound care center upon discharge.
--- NOTE | 2024-09-11 09:59 | W.CON.NEPH ---
Consultation
-
Date/Time Consultation Requested: 09/11/2024 7:30 AM
Date/Time Consultation Performed: 09/11/2024 1000 AM
Requesting Provider: Dr. Collazo
Performing Provider: Dr. Sen
Reason for Consultation: End-stage renal disease
Medical History
-
Chief Complaint: End-stage renal disease
History of Present Illness:
69-year-old male with past medical history of carotid artery disease status post right CEA at [facility], end-stage renal disease (TTS dialysis at [facility]), hypertension (maintained on losartan amlodipine and hydralazine),
secondary hyperparathyroidism maintained on Cinacalcet, dyslipidemia, heart failure reduced ejection fraction EF reportedly 40 to 45%, and CVA who presented for shortness of breath over the past week. This has progressed till he has darted to have
conversational dyspnea. Thus, he is at a rehab center but they brought him in because of this.
In the emergency room he is bradycardic with heart rate around 40 and lab work has revealed an elevated troponin to [address] chest CT showing bilateral effusion with near complete collapse of left lung field. Patient has suspected non-ST
elevation IN as evidenced by a troponin elevation of 10.7. Nephrology was consulted for end-stage renal disease manage. 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
department for evaluation. Patient reports increasing pain in the left heel. He denies fevers, sweats or chills.
Past Medical History
Congestive heart failure GERD hypertension dyslipidemia hypothyroidism end-stage renal disease on Saturday PEG tube
Social History
Tobacco: Smoker
Alcohol: None
Living: Care Home
Family History
no ckd
Allergies / Home Medications
Allergy/AdvReac Type Severity Reaction Status Date / Time
No Known Allergies Allergy Unverified 09/10/24 17:01
�Medication �Instructions �Recorded �Confirmed �Type
albuterol sulfate 2.5 mg/3 mL 2.5 mg inhalation R Q4HPRN PRN SOB 06/20/24 09/10/24 History
(0.083 %) solution for nebulization
aspirin 81 mg tablet,delayed 81 mg feeding tube DAILY Blood 06/20/24 09/10/24 History
release Clot Prevention/Tx
bisacodyl 10 mg rectal suppository 10 mg LA DAILYPRN PRN if no BM in 06/20/24 09/10/24 History
(Dulcolax (bisacodyl)) 4 days
bupropion HCl 100 mg tablet 150 mg PO BID VIA PEG-TUBE 06/20/24 09/10/24 History
melatonin 5 mg tablet 5 mg feeding tube HS Sleep 06/20/24 09/10/24 History
sevelamer carbonate 0.8 gram oral 0.8 g feeding tube AC Kidney 06/20/24 09/10/24 History
powder packet (Renvela) Disease
tamsulosin 0.4 mg capsule (Flomax) 0.4 mg PO MOWEFR VIA PEG-TUBE 06/20/24 09/10/24 History
folic acid 1 mg tablet 1 mg feeding tube DAILY #30 tabs 08/17/24 09/10/24 Rx
losartan 25 mg tablet 25 mg feeding tube SuTuThSa@1900 08/17/24 09/10/24 Rx
#30 tabs
Banana Flakes 1 packet feeding tube DAILY 09/10/24 09/10/24 History
acetaminophen 500 mg tablet 1,000 mg feeding tube TID 3000 mg 09/10/24 09/10/24 History
(Tylenol Extra Strength)
docusate sodium 50 mg/5 mL oral 100 mg feeding tube BID 09/10/24 09/10/24 History
liquid
ipratropium 0.5 mg-albuterol 3 mg 3 ml inhalation R TID 09/10/24 09/10/24 History
(2.5 mg base)/3 mL nebulization
soln
lansoprazole 30 mg delayed 30 mg feeding tube DAILY 09/10/24 09/10/24 History
release,disintegrating tablet
lidocaine 4 % topical patch 1 patch topical BID apply to lower 09/10/24 09/10/24 History
back
magnesium hydroxide 400 mg/5 mL 30 ml feeding tube DAILYPRN PRN if 09/10/24 09/10/24 History
oral suspension (Milk of Magnesia) no BM in 3 days
metoclopramide HCl 5 mg tablet 5 mg feeding tube TID 09/10/24 09/10/24 History
(Reglan)
midodrine 10 mg tablet 10 mg feeding tube Q8HPRN PRN For 09/10/24 09/10/24 History
SBP < 100
ondansetron 4 mg disintegrating 4 mg feeding tube Q8HPRN PRN 09/10/24 09/10/24 History
tablet nausea/vomiting
oxycodone 5 mg tablet 5 mg feeding tube Q8HPRN PRN 09/10/24 09/10/24 History
moderate to severe pain
polyvinyl alcohol-povidone 0.5 1 drp BOTH EYES Q2HPRN PRN dry eyes 09/10/24 09/10/24 History
%-0.6 % eye drops (Artificial
Tears (polyvinyl alcohol/povidone))
rosuvastatin 20 mg tablet 20 mg feeding tube DAILY High 09/10/24 09/10/24 History
cholesterol
sennosides 8.6 mg tablet (senna) 17.2 mg feeding tube DAILY 09/10/24 09/10/24 History
sodium phosphates 19 gram-7 118 ml LA DAILYPRN PRN if no BM in 09/10/24 09/10/24 History
gram/118 mL enema ([id number] 5 days
Enema)
Review of Systems
-
All other systems: Negative unless noted
Abdomen/GI: Other (PEG)
Musculoskeletal: Edema and Other (Left foot wound)
Neurological: Other (Left hemiparesis)
Physical Exam
Vital Signs
Vital Signs
Temp Pulse Resp BP Pulse Ox
97.5 F 95 17 113/76 95
09/11/24 08:05 09/11/24 08:05 09/11/24 08:05 09/11/24 08:05 09/11/24 08:05
Lab Results
WBC 9.6 10^3/uL (4.8-10.8) 09/11/24 06:09
RBC 2.97 10^6/uL (4.70-6.10) L 09/11/24 06:09
Hgb 8.9 g/dL (13.0-18.0) L 09/11/24 06:09
Hct 27.8 % (39.0-52.0) L 09/11/24 06:09
Plt Count 215 10^3/uL (130-400) 09/11/24 06:09
Sodium 135 mmol/L (135-145) 09/11/24 06:09
Potassium 4.3 mmol/L (3.5-5.1) 09/11/24 06:09
Chloride 101 mmol/L (98-107) 09/11/24 06:09
Carbon Dioxide 26 mmol/L (22-30) 09/11/24 06:09
BUN 25 mg/dl (9-20) H 09/11/24 06:09
Creatinine 2.9 mg/dL (0.7-1.3) H 09/11/24 06:09
eGFR 22.71 09/11/24 06:09
Glucose 125 mg/dl (70-99) H 09/11/24 06:09
Calcium 9.0 mg/dl (8.4-10.2) 09/11/24 06:09
Albumin 4.2 g/dl (3.5-5.0) 09/10/24 18:23
Physical Exam
General: AOx3, Nontoxic , NAD, chronically ill-appearing cachectic
HEENT: PERRL, EOMI, Anicteric, Conjunctivae pale, Ear/Nose Intact, Hearing Normal, Oropharynx Clear/Moist, Dentition Intact, Facial Symmetry, Neck Supple, Neck: Trachea Midline, No JVD and No Thyromegaly, no Bruits
Respiratory: Coarse to auscultation , no breath sounds along left side lung field
Cardiac: S1/S2 and Regular Rate/Rhythm : jay
Breast: Deferred by me
Abdomen: Soft, Nontender, Nondistended, Normal Bowel Sounds and No Hepatosplenomegaly, PEG
Rectal: Deferred by Provider
Genito-urinary: No Costovertebral Tenderness
Extremities: No Clubbing, No Cyanosis and left heel wound
Skin: No Rash or open lesions
Neuro: Left-sided hemiparesis
Hematologic/Lymphatic: No Cervical Lymphadenopathy, No Submandibular Lymphadenopathy and No Supraclavicular Lymphadenopathy
Psych: Mood/afflect pleasant, Insight/judgement good and Appropriate
Vascular: plus 1 pedal and radial pulses
Vascular Access: CVC (Right upper chest)
Data Reviewed
-
Radiology: Report Reviewed by me (X-ray of left heel reviewed no evidence of fracture no evidence of osteomyelitis per report)
Labs: Labs Reviewed by me (BMP CBC)
Old Records: Reviewed (Reviewed previous nephrology consultation from date 06/21/24:)
Assessment/Plan
-
Impression:
ESRD MWF
Left Heel wound
Hypoxia/left lung atelectasis versus pneumonia
Hx of Large left pleural effusion s/p thoracentesis
CHF
Anemia
Hypertension hx
Hyperphosphatemia
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
Hyperphosphatemia
PEG
Hx of Non-ST elevation IN
History of stroke with subsequent left hemiparesis dysarthria and dysphagia
Tunneled right HD IJ catheter
Chronic impacted right proximal humerus fracture
hypercalcemia resolved after parathyroidectomy
Plan:
HD TTS at [facility]
off sensipar as serum calcium now normalized following parathyroidectomy surgery 08/04/24
Next dialysis will be tomorrow, orders provided
Midodrine on dialysis to support blood pressure
Continue phosphate binder therapy for hyperphosphatemia
PAPITO therapy to provided for anemia
--- NOTE | 2024-09-11 11:37 | CON.VAS ---
Consultation
Consultation Request
Date/Time Consultation Requested: 09/10/24 20:42
Date/Time Consultation Performed: 09/11/24, 11am
Requesting Provider: Nadia Kee
Performing Provider: Christos Bender
Reason for Consultation: worsening L foot wound
Medical History
-
Chief Complaint: worsening L foot wound
History of Present Illness:
Josh Barnes is a 69yo M with a hx of R CVA (s/p R CEA), ESRD on HD (S/T/), HTN, & HLD who p/w worsening pain & appearance of L foot wounds. Vascular consulted to eval for mgmt of wound healing.
Pt reports that wound appeared on L medial heel a few months ago. This co-occurred with the development of wounds on dorsum of L great & 2nd toes. Pt seen by wound care at his long-term care facility; worsening pain & wound appearance prompted
presentation to ED. Denies any prior instance of wounds or discoloration of L or R feet. Denies LE claudication w ambulation (ambulation somewhat limited by residual LE weakness following CVA). Non-smoker. Denies f/c. Takes aspirin 81mg, losartan
25mg, rosuvastatin 20mg at home.
On admission, R DP & PT pulses intact by doppler. L PT pulses + on doppler. L DP pulses appreciable on doppler by ED physician but not IM physician on admission. Xray of L foot demonstrated no abnormalities. Pt sent for E US study this afternoon:
L-sided BREANA 1.39 (PT), DP unreadable, digit 0.24. R-sided BREANA (PT) 0.53, DP 1.23, digit 0.40. L first digit waveform appears flat on readout.
Past Medical History
Past Medical History: CVA, HTN and Other (ESRD on HD)
Past Surgical History: Other (R CEA )
Social History
Tobacco: Non-Smoker
Allergies / Home Medications
Allergy/AdvReac Type Severity Reaction Status Date / Time
No Known Allergies Allergy Unverified 09/10/24 17:01
�Medication �Instructions �Recorded �Confirmed �Type
albuterol sulfate 2.5 mg/3 mL 2.5 mg inhalation R Q4HPRN PRN SOB 06/20/24 09/10/24 History
(0.083 %) solution for nebulization
aspirin 81 mg tablet,delayed 81 mg feeding tube DAILY Blood 06/20/24 09/10/24 History
release Clot Prevention/Tx
bisacodyl 10 mg rectal suppository 10 mg AL DAILYPRN PRN if no BM in 06/20/24 09/10/24 History
(Dulcolax (bisacodyl)) 4 days
bupropion HCl 100 mg tablet 150 mg PO BID VIA PEG-TUBE 06/20/24 09/10/24 History
melatonin 5 mg tablet 5 mg feeding tube HS Sleep 06/20/24 09/10/24 History
sevelamer carbonate 0.8 gram oral 0.8 g feeding tube AC Kidney 06/20/24 09/10/24 History
powder packet (Renvela) Disease
tamsulosin 0.4 mg capsule (Flomax) 0.4 mg PO MOWEFR VIA PEG-TUBE 06/20/24 09/10/24 History
folic acid 1 mg tablet 1 mg feeding tube DAILY #30 tabs 08/17/24 09/10/24 Rx
losartan 25 mg tablet 25 mg feeding tube SuTuThSa@1900 08/17/24 09/10/24 Rx
#30 tabs
Banana Flakes 1 packet feeding tube DAILY 09/10/24 09/10/24 History
acetaminophen 500 mg tablet 1,000 mg feeding tube TID 3000 mg 09/10/24 09/10/24 History
(Tylenol Extra Strength)
docusate sodium 50 mg/5 mL oral 100 mg feeding tube BID 09/10/24 09/10/24 History
liquid
ipratropium 0.5 mg-albuterol 3 mg 3 ml inhalation R TID 09/10/24 09/10/24 History
(2.5 mg base)/3 mL nebulization
soln
lansoprazole 30 mg delayed 30 mg feeding tube DAILY 09/10/24 09/10/24 History
release,disintegrating tablet
lidocaine 4 % topical patch 1 patch topical BID apply to lower 09/10/24 09/10/24 History
back
magnesium hydroxide 400 mg/5 mL 30 ml feeding tube DAILYPRN PRN if 09/10/24 09/10/24 History
oral suspension (Milk of Magnesia) no BM in 3 days
metoclopramide HCl 5 mg tablet 5 mg feeding tube TID 09/10/24 09/10/24 History
(Reglan)
midodrine 10 mg tablet 10 mg feeding tube Q8HPRN PRN For 09/10/24 09/10/24 History
SBP < 100
ondansetron 4 mg disintegrating 4 mg feeding tube Q8HPRN PRN 09/10/24 09/10/24 History
tablet nausea/vomiting
oxycodone 5 mg tablet 5 mg feeding tube Q8HPRN PRN 09/10/24 09/10/24 History
moderate to severe pain
polyvinyl alcohol-povidone 0.5 1 drp BOTH EYES Q2HPRN PRN dry eyes 09/10/24 09/10/24 History
%-0.6 % eye drops (Artificial
Tears (polyvinyl alcohol/povidone))
rosuvastatin 20 mg tablet 20 mg feeding tube DAILY High 09/10/24 09/10/24 History
cholesterol
sennosides 8.6 mg tablet (senna) 17.2 mg feeding tube DAILY 09/10/24 09/10/24 History
sodium phosphates 19 gram-7 118 ml AL DAILYPRN PRN if no BM in 09/10/24 09/10/24 History
gram/118 mL enema ([id number]-Dr-Mfj 5 days
Enema)
Review of Systems
-
History Source: Patient
Vascular: Reports Leg Pain / Claudication (denies)
Skin: Reports Other (wounds on L foot (toes & medial heel) with worsening pain )
Physical Exam
Vital Signs
Temp Pulse Resp BP Pulse Ox
97.5 F 95 17 113/76 95
09/11/24 08:05 09/11/24 08:05 09/11/24 08:05 09/11/24 08:05 09/11/24 08:05
Lab Results
09/11/24 06:09
09/11/24 06:09
Physical Exam
General: Other (on stretcher preparing for transit to US imaging)
HEENT: Normocephalic, Anicteric and Atraumatic
Respiratory: Non Labored Respirations
Musculoskeletal: No Edema
Skin: Other (L medial heel with black/deep red shallow wound, without drainage or surrounding erythema; L great & 2nd toes with violaceous shallow wounds on dorsum, no drainage)
Neuro: Awake, Alert and Oriented
Psych: Calm
Assessment / Plan
-
Patient is a 69yo M with a hx of R CVA (s/p R CEA), ESRD on HD (S/T/), HTN, & HLD who p/w worsening pain & appearance of L foot wounds. Vascular consulted to eval for mgmt of wound healing.
Assessment: Appearance of wounds on L foot c/w ischemic wounds 2/2 limited blood flow to extremity. No signs of venostatic changes to LEs on exam, again likely arterial>venous wound healing challenge. Also c/w pt hx of HTN, HLD, and arterial
atherosclerosis (hx of R CEA). US performed today demonstrates unreadable L dorsalis pedis BREANA and flat L great toe waveform. This is c/w medial location of wound on L heel and wounds on L great toe.
Plan:
- Plan for LLE angiogram w angioplasty with vascular, potentially Friday 09/15 - to coordinate with HD schedule given ESRD & need for contrast
- Continue medical mgmt of cardiovascular risk factors
Data Reviewed
-
Ultrasound: Image Personally Visualized and interpreted and Report Reviewed by me
Labs: Labs Reviewed by me
Critical Care Time (in minutes): 45
Total Time Spent with Patient (in minutes): 15
[2024-09-11 11:46] LABS: Glycohemoglobin (HgbA1c) 4.6 % (4.0-5.6)
[2024-09-11 11:50] LABS: Glucose - Point of Care 87 mg/dl (70-99)
[2024-09-11 12:29] VITALS: BMI 15.5
[2024-09-11 15:00] VITALS: BP 135/75
[2024-09-11] MEDS: SEVELAMER CARBONATE TUBE (15:35)
[2024-09-11 17:57] LABS: Glucose - Point of Care 90 mg/dl (70-99)
[2024-09-11] MEDS: REMOVE LIDOCAINE PATCH 1 PATCH REMOVE (20:40)
[2024-09-11] MEDS: MELATONIN 5 MG TUBE (22:09)
[2024-09-11 23:35] VITALS: BP 131/80
[2024-09-12] MEDS: DILAUDID 0.25 MG IV ×3 (01:46→23:52)
[2024-09-12] MEDS: ROXICODONE 5 MG TUBE ×2 (05:34→22:10)
[2024-09-12 06:00] VITALS: BMI 16.5
[2024-09-12] MEDS: DUONEB 3 ML INH ×3 (07:13→20:11)
[2024-09-12 08:32] VITALS: BP 143/85
--- NOTE | 2024-09-12 09:24 | W.PN.HOSP.TC ---
Today's Communication/Plan
-
see a/p
Assessment / Plan
Assessment / Plan
Physical Exam
General: Comfortable and Conversant
HEENT: Anicteric and Moist mucous membranes
Respiratory: Clear and Non Labored Respirations
Cardiac: S1/S2 and Regular Rhythm
GI: Soft, Non Tender and Peg Tube
Musculoskeletal: No Clubbing, No Cyanosis
Skin: Warm, Dry, Lt foot dressing dry intact
Neuro: Left Hemiparesis, AOx3 conversant coherent
Psych: Calm
69M past medical history of CVA with residual Lt hemiparesis and dysphagia s/p PEG Tube, ESRD, Hypertension, Hyperlipidemia and Hypothyroidism who presents with worsening left heel wound. 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 Patient reports increasing pain in the left heel. Denied fevers, sweats or chills.
Worsening Left Foot Wounds
-Patient reports worsening pain raising concern that wounds are vascular in nature
-Consult Vascular Surgery appreciated planned for Angioplasty tentatively Saturday
-BREANA appreciated Findings compatible with infrapopliteal disease.
-Consult Wound Care appreciated
-Hold on antibiotics as wound do not appear actively infected
-ESR
CVA with Residual Left Hemiparesis, and Dysphagia s/p PEG Tube
Carotid Artery Disease s/p Right CEA
-Patient is able to transfer to wheelchair with workforce development assistant
-He remains NPO except ice chips with tube feedings via PEG
-Continue aspirin
ESRD on HD TuThSa
-Consult Nephrology appreciated
-Monitor Is&Os - Patient reports he still makes urine
-continue Renvela
Essential Hypertension
-Continue losartan
Hyperlipidemia
-Continue rosuvastatin
GERD / GI Bleed
-Continue lansoprazole
BPH
-Continue Flomax
Depression
-Continue bupropion
DVT proph: SC Heparin
Code Status: Full Code
Discussed with patient and patient's daughter Tawnya
I spent a total of 45 minutes with the patient or on the floor. More than 50% of this time involved counseling and coordination of care.
Anticipated Discharge: > 48 hours
Subjective/Interval History
-
Date of Service: September 12, 2024
no acute distress, pain relatively well controlled at this time.
Objective Data
-
Labs:
Laboratory Results
09/12/24
07:00
Hgb Pending
Hct Pending
Sodium Pending
Potassium Pending
Chloride Pending
Carbon Dioxide Pending
Vital Signs:
Vital Signs
Temp Pulse Resp BP Pulse Ox
98.0 F 85 18 143/85 100
09/12/24 08:32 09/12/24 08:32 09/12/24 08:32 09/12/24 08:32 09/12/24 07:15
I&O
09/11/24 09/12/24 09/13/24
06:59 06:59 06:59
Intake Total 0 / 0
Output Total 0 / 0
Balance 0 / 0
[2024-09-12] MEDS: LIDOCAINE 4% PATCH 1 PATCH TOPICAL (09:47)
[2024-09-12] MEDS: SENOKOT 17.2 MG TUBE (09:48)
[2024-09-12] MEDS: COLACE LIQUID 100 MG TUBE ×2 (09:48→19:17)
[2024-09-12] MEDS: CRESTOR 20 MG TUBE (09:48)
[2024-09-12] MEDS: LOW STRENGTH ASPIRIN 81 MG TUBE (09:48)
[2024-09-12] MEDS: PREVACID 30 MG TUBE (09:48)
[2024-09-12] MEDS: HEPARIN 5000 UNITS SC ×3 (09:48→23:52)
[2024-09-12] MEDS: REGLAN 5 MG TUBE ×3 (09:51→22:09)
[2024-09-12] MEDS: WELLBUTRIN REGULAR RELEASE 150 MG TUBE ×2 (09:51→19:17)
[2024-09-12] MEDS: SEVELAMER CARBONATE 0.8 GM TUBE ×2 (09:52→16:50)
[2024-09-12 12:28] LABS: Glucose - Point of Care 141 mg/dl (70-99)
--- NOTE | 2024-09-12 12:29 | W.PN.NEPH.HD ---
Assessment
-
Patient seen on dialysis
Systolic blood pressure stable for current UF
Progress Note - Hemodialysis
-
Date of Service: September 12, 2024
Duration: 30 minutes and 3 hours
Potassium Bath: 3
Calcium Bath: 2.5
Opti-Dialyzer: 160
Ultrafiltration: Other (1 to 2 kg)
Blood Flow: 400
Dialysate Flow: 600
Heparin: None
EPO: 8000
[2024-09-12 12:37] LABS: Hematocrit 26.5 % (39.0-52.0); Hemoglobin 8.4 g/dL (13.0-18.0)
[2024-09-12] MEDS: SEVELAMER CARBONATE TUBE (12:51)
[2024-09-12 12:52] LABS: Carbon Dioxide 28 mmol/L (22-30); Chloride 98 mmol/L (98-107); Potassium 4.5 mmol/L (3.5-5.1); Sodium 132 mmol/L (135-145)
[2024-09-12 13:17] VITALS: BP 110/60
[2024-09-12] MEDS: RETACRIT 8000 UNITS IV (14:33)
[2024-09-12 16:06] VITALS: BP 127/79
--- NOTE | 2024-09-12 16:06 | CM ---
Patient brought to ER from [facility]. He was sent there from in July 2024. CM spoke to [facility] who said patient is still under short term rehab there and getting his HD on site. Her plan is for him to return to [facility] and she is
thinking he will convert to LTC there.
[2024-09-12] MEDS: HEPARIN 3200 UNITS INTRACATH (16:28)
[2024-09-12] MEDS: TYLENOL 650 MG TUBE (16:50)
[2024-09-12 18:08] LABS: Glucose - Point of Care 122 mg/dl (70-99)
[2024-09-12 18:16] VITALS: BP 112/62
[2024-09-12] MEDS: COZAAR TUBE (18:16)
[2024-09-12 19:19] LABS: Hepatitis B Surface Antigen Negative (Negative)
[2024-09-12] MEDS: REMOVE LIDOCAINE PATCH 1 PATCH REMOVE (19:19)
[2024-09-12] MEDS: MELATONIN 5 MG TUBE (22:09)
[2024-09-12] MEDS: GLYCERIN SUPPOSITORY ADULT 1 SUPP RECTAL (22:10)
[2024-09-12 23:00] VITALS: BP 133/75
[2024-09-13 01:15] LABS: Glucose - Point of Care 103 mg/dl (70-99)
[2024-09-13] MEDS: DILAUDID 0.25 MG IV ×3 (04:27→23:42)
[2024-09-13 04:53] VITALS: BMI 15.4
[2024-09-13 06:10] LABS: Glucose - Point of Care 95 mg/dl (70-99)
--- NOTE | 2024-09-13 07:24 | W.PN.HOSP.TC ---
Today's Communication/Plan
-
npo after midnight (hold tube feeds) for vascular procedure
pain control
milk and molasses enema
PT/OT
Assessment / Plan
Assessment / Plan
Physical Exam
General: Comfortable and Conversant
HEENT: Anicteric and Moist mucous membranes
Respiratory: Clear and Non Labored Respirations
Cardiac: S1/S2 and Regular Rhythm
GI: Soft, Non Tender and Peg Tube
Musculoskeletal: No Clubbing, No Cyanosis
Skin: Warm, Dry, Lt foot dressing dry intact
Neuro: Left Hemiparesis, AOx3 conversant coherent
Psych: Calm
69M past medical history of CVA with residual Lt hemiparesis and dysphagia s/p PEG Tube, ESRD, Hypertension, Hyperlipidemia and Hypothyroidism who presents with worsening left heel wound. 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 Patient reports increasing pain in the left heel. Denied fevers, sweats or chills.
Worsening Left Foot Wounds
-Patient reports worsening pain raising concern that wounds are vascular in nature
-Consult Vascular Surgery appreciated planned for Angioplasty tentatively Saturday Tomorrow
-BREANA appreciated Findings compatible with infrapopliteal disease.
-Consult Wound Care appreciated
-Hold on antibiotics as wound do not appear actively infected
-ESR
Constipation
cont home colace
suppository and fleet enema attempted without improvement
09/13 milk and molasses enema ordered
CVA with Residual Left Hemiparesis, and Dysphagia s/p PEG Tube
Carotid Artery Disease s/p Right CEA
-Patient is able to transfer to wheelchair with occupational therapy assistant
-He remains NPO except ice chips with tube feedings via PEG, hold tube feeds after midnight for Vascular procedure Mon as above
-Continue aspirin
ESRD on HD TuThSa
-Consult Nephrology appreciated
-Monitor Is&Os - Patient reports he still makes urine
-continue Renvela
Essential Hypertension
-Continue losartan
Hyperlipidemia
-Continue rosuvastatin
GERD / GI Bleed
-Continue lansoprazole
BPH
-Continue Flomax
Depression
-Continue bupropion
PT/OT SNF rehab
DVT proph: SC Heparin
Code Status: Full Code
I spent a total of 45 minutes with the patient or on the floor. More than 50% of this time involved counseling and coordination of care.
Anticipated Discharge: > 48 hours
Subjective/Interval History
-
Date of Service: September 13, 2024
No acute distress, pain relatively well controlled at this time with current pain regimen. Constipation persists, denies abd pain, nausea, vomiting.
Objective Data
-
Vital Signs:
Vital Signs
Temp Pulse Resp BP Pulse Ox
97.4 F 73 16 133/75 100
09/12/24 23:00 09/12/24 23:00 09/12/24 23:00 09/12/24 23:00 09/12/24 23:00
I&O
09/12/24 09/13/24 09/14/24
06:59 06:59 06:59
Intake Total 0 / 0
Output Total 0 / 0
Balance 0 / 0
[2024-09-13 07:41] VITALS: BP 130/67
[2024-09-13] MEDS: DUONEB 3 ML INH ×3 (08:06→20:11)
[2024-09-13] MEDS: REGLAN 5 MG TUBE ×3 (09:09→23:43)
[2024-09-13] MEDS: SENOKOT 17.2 MG TUBE (09:09)
[2024-09-13] MEDS: COLACE LIQUID 100 MG TUBE ×2 (09:09→20:39)
[2024-09-13] MEDS: WELLBUTRIN REGULAR RELEASE 150 MG TUBE ×2 (09:09→20:37)
[2024-09-13] MEDS: SEVELAMER CARBONATE 0.8 GM TUBE ×3 (09:10→15:52)
[2024-09-13] MEDS: PREVACID 30 MG TUBE (09:10)
[2024-09-13] MEDS: HEPARIN 5000 UNITS SC ×3 (09:10→23:42)
[2024-09-13] MEDS: LOW STRENGTH ASPIRIN 81 MG TUBE (09:10)
[2024-09-13] MEDS: CRESTOR 20 MG TUBE (09:10)
[2024-09-13] MEDS: LIDOCAINE 4% PATCH 1 PATCH TOPICAL (09:11)
[2024-09-13] MEDS: TYLENOL 650 MG TUBE (09:12)
[2024-09-13 09:27] VITALS: BP 146/91; PULSE 78; O2SAT 100
[2024-09-13] MEDS: ROXICODONE 5 MG TUBE ×2 (09:34→17:58)
[2024-09-13 09:55] VITALS: BP 146/91; PULSE 78; O2SAT 100
--- NOTE | 2024-09-13 11:51 | W.PN.NEPH.PH ---
Today's Communication / Plan
-
next HD saturday
For vascular angiogram tomorrow dialysis will not be required post
Assessment/Plan
-
Impression:
ESRD MWF
Left Heel wound
Hypoxia/left lung atelectasis versus pneumonia
Hx of Large left pleural effusion s/p thoracentesis
CHF
Anemia
Hypertension hx
Hyperphosphatemia
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
Hyperphosphatemia
PEG
Hx of Non-ST elevation [place]
History of stroke with subsequent left hemiparesis dysarthria and dysphagia
Tunneled right HD IJ catheter
Chronic impacted right proximal humerus fracture
hypercalcemia resolved after parathyroidectomy
Plan:
HD TTS at [place]
off sensipar as serum calcium now normalized following parathyroidectomy surgery 08/04/24
Next dialysis will be saturday,
Midodrine on dialysis to support blood pressure
Continue phosphate binder therapy for hyperphosphatemia
PAPITO therapy to provided for anemia
-
-
Date of Service: September 13, 2024
CC / HPI / ROS
-
Chief Complaint:
ESRD
History of Present Illness:
ESRD TTS
hemodynamically stable
Review of Systems:
no chest pain or sob
Labs
-
Labs:
WBC 9.6 10^3/uL (4.8-10.8) 09/11/24 06:09
RBC 2.97 10^6/uL (4.70-6.10) L 09/11/24 06:09
Hgb 8.4 g/dL (13.0-18.0) L 09/12/24 12:11
Hct 26.5 % (39.0-52.0) L 09/12/24 12:11
Plt Count 215 10^3/uL (130-400) 09/11/24 06:09
Sodium 132 mmol/L (135-145) L 09/12/24 12:11
Potassium 4.5 mmol/L (3.5-5.1) 09/12/24 12:11
Chloride 98 mmol/L (98-107) 09/12/24 12:11
Carbon Dioxide 28 mmol/L (22-30) 09/12/24 12:11
BUN 25 mg/dl (9-20) H 09/11/24 06:09
Creatinine 2.9 mg/dL (0.7-1.3) H 09/11/24 06:09
eGFR 22.71 09/11/24 06:09
Glucose 125 mg/dl (70-99) H 09/11/24 06:09
Calcium 9.0 mg/dl (8.4-10.2) 09/11/24 06:09
Albumin 4.2 g/dl (3.5-5.0) 09/10/24 18:23
Physical Exam
-
Vital Signs:
Vital Signs
Temp Pulse Resp BP Pulse Ox
98.6 F 65 15 130/67 96
09/13/24 07:41 09/13/24 08:09 09/13/24 08:09 09/13/24 07:41 09/13/24 08:09
Cardiovascular:: Regular rate and rhythm
Respiratory:: Bilateral: Coarse
Lung Excursion:: Normal
Abdomen:: Nontender and Soft
Extremity Edema:: None: Bilateral:
Bender Catheter: No
Other Findings::
tunneled catheter site
mild redness at anchoring suture area, no drainage
[2024-09-13 12:34] LABS: Glucose - Point of Care 126 mg/dl (70-99)
[2024-09-13] MEDS: FLEET MINERAL OIL ENEMA 133 ML RECTAL (13:40)
[2024-09-13 15:18] VITALS: BP 154/84
[2024-09-13] MEDS: COZAAR 25 MG TUBE (17:57)
[2024-09-13 17:58] LABS: Glucose - Point of Care 119 mg/dl (70-99)
[2024-09-13] MEDS: REMOVE LIDOCAINE PATCH 1 PATCH REMOVE (21:05)
[2024-09-13 23:05] VITALS: BP 131/80
[2024-09-13 23:31] LABS: Glucose - Point of Care 99 mg/dl (70-99)
[2024-09-13] MEDS: MELATONIN 5 MG TUBE (23:43)
[2024-09-14] VITALS (11 sets, daily range): BP systolic 111–149; BP diastolic 62–89; BMI 15.3
[2024-09-14] MEDS: ROXICODONE 5 MG TUBE ×2 (02:33→21:50)
[2024-09-14 05:29] LABS: Glucose - Point of Care 101 mg/dl (70-99)
[2024-09-14 06:16] LABS: Hematocrit 26.3 % (39.0-52.0); Hemoglobin 8.4 g/dL (13.0-18.0); Mean Corp Hgb Conc. 31.9 g/dL (33.0-37.0); Mean Corpuscular Volume 93.6 fL (80.0-94.0); Platelet Count 214 10^3/uL (130-400); Red Cell Dist. Width 16.9 % (11.5-14.5)
[2024-09-14 06:21] LABS: INR 1.01; PT 13.6 Sec (11.4-14.6)
[2024-09-14 06:35] LABS: Blood Urea Nitrogen 36 mg/dl (9-20); Calcium 9.3 mg/dl (8.4-10.2); Carbon Dioxide 32 mmol/L (22-30); Chloride 96 mmol/L (98-107); Estimated Creatinine Clearance 15 ml/min; Glucose 107 mg/dl (70-99); Potassium 4.5 mmol/L (3.5-5.1); Sodium 134 mmol/L (135-145); eGFR 20.18
[2024-09-14] MEDS: DILAUDID 0.25 MG IV ×2 (06:39→19:46)
[2024-09-14] MEDS: DUONEB 3 ML INH ×2 (07:29→19:16)
--- NOTE | 2024-09-14 09:12 | W.PN.HOSP.TC ---
Addendum entered and electronically signed by Kiana Collazo MD 09/15/24 09:38:
Lt heel wound Arterial (ischemic) ulcer/PVD
Original Note:
Today's Communication/Plan
-
post-op care as per vascular
CXR in AM
possible discharge back to [place] tomorrow after HD
Assessment / Plan
Assessment / Plan
Physical Exam
General: Comfortable and Conversant
HEENT: Anicteric and Moist mucous membranes
Respiratory: Clear and Non Labored Respirations
Cardiac: S1/S2 and Regular Rhythm
GI: Soft, Non Tender and Peg Tube
Musculoskeletal: No Clubbing, No Cyanosis
Skin: Warm, Dry, Lt foot dressing dry intact
Neuro: Left Hemiparesis, AOx3 conversant coherent
Psych: Calm
69M past medical history of CVA with residual Lt hemiparesis and dysphagia s/p PEG Tube, ESRD, Hypertension, Hyperlipidemia and Hypothyroidism who presents with worsening left heel wound. 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 Patient reports increasing pain in the left heel. Denied fevers, sweats or chills.
Worsening Left Foot Wounds
-Patient reports worsening pain raising concern that wounds are vascular in nature
-Consult Vascular Surgery appreciated Angioplasty stent placement LLE 09/14 ASA Plavix
-BREANA appreciated Findings compatible with infrapopliteal disease.
-Consult Wound Care appreciated
-Hold on antibiotics as wound does not appear actively infected
-ESR
Constipation
cont home colace
suppository and fleet enema attempted without improvement
09/13 milk and molasses enema ordered
CVA with Residual Left Hemiparesis, and Dysphagia s/p PEG Tube
Carotid Artery Disease s/p Right CEA
-Patient is able to transfer to wheelchair with assistant golf course superintendent
-He remains NPO except ice chips with tube feedings via PEG, hold tube feeds after midnight for Vascular procedure Mon as above
-Continue aspirin, plavix added following LLE stent placement as above
ESRD on HD TuThSa
-Consult Nephrology appreciated
-Monitor Is&Os - Patient reports he still makes urine
-continue Renvela
Essential Hypertension
-Continue losartan
Hyperlipidemia
-Continue rosuvastatin
GERD / GI Bleed
-Continue lansoprazole
BPH
-Continue Flomax
Depression
-Continue bupropion
PT/OT SNF rehab
DVT proph: SC Heparin
Code Status: Full Code
Discussed with patient and patient's daughter Tawnya
I spent a total of 45 minutes with the patient or on the floor. More than 50% of this time involved counseling and coordination of care.
Anticipated Discharge: Within 24 hours
Subjective/Interval History
-
Date of Service: September 14, 2024
Overall reports feeling well after LLE angiogram/angioplasty. Reports some sob though stable respiratory status on room air.
Objective Data
-
Labs:
Laboratory Results
09/14/24
05:51
WBC 10.3
Hgb 8.4 L
Hct 26.3 L
Plt Count 214
PT 13.6
INR 1.01
Sodium 134 L
Potassium 4.5
Chloride 96 L
Carbon Dioxide 32 H
BUN 36 H
Creatinine 3.2 H
Glucose 107 H
Calcium 9.3
Vital Signs:
Vital Signs
Temp Pulse Resp BP Pulse Ox
97.4 F 71 18 142/84 95
09/13/24 23:05 09/14/24 07:34 09/14/24 07:34 09/14/24 07:34 09/14/24 07:34
I&O
09/13/24 09/14/24 09/15/24
06:59 06:59 06:59
Intake Total 0 / 0
Balance 0 / 0
[2024-09-14] MEDS: COLACE LIQUID 100 MG TUBE ×2 (09:19→19:47)
[2024-09-14] MEDS: HEPARIN 5000 UNITS SC ×2 (09:20→17:19)
[2024-09-14] MEDS: WELLBUTRIN REGULAR RELEASE 150 MG TUBE ×2 (09:20→19:47)
[2024-09-14] MEDS: CRESTOR 20 MG TUBE (09:20)
[2024-09-14] MEDS: PREVACID 30 MG TUBE (09:21)
[2024-09-14] MEDS: LOW STRENGTH ASPIRIN 81 MG TUBE (09:21)
[2024-09-14] MEDS: LIDOCAINE 4% PATCH 1 PATCH TOPICAL (09:21)
[2024-09-14] MEDS: SENOKOT 17.2 MG TUBE (09:22)
[2024-09-14] MEDS: SEVELAMER CARBONATE TUBE ×3 (09:23→16:06)
[2024-09-14] MEDS: REGLAN TUBE ×2 (09:30→16:05)
[2024-09-14] MEDS: FLOMAX 0.4 MG TUBE (09:42)
[2024-09-14 11:49] LABS: Glucose - Point of Care 80 mg/dl (70-99)
--- NOTE | 2024-09-14 12:31 | W.SUR.PREOP ---
Pre-Operative Surgical Note
-
I have examined this patient prior to the performance of the scheduled procedure.
The patient's condition is unchanged from the time of the current History and
Physical and the patient is able to undergo the scheduled procedure.
--- NOTE | 2024-09-14 12:50 | W.PN.NEPH.PH ---
Today's Communication / Plan
-
Dialysis tomorrow
Assessment/Plan
-
Impression:
ESRD MWF
Left Heel wound
Hypoxia/left lung atelectasis versus pneumonia
Hx of Large left pleural effusion s/p thoracentesis
CHF
Anemia
Hypertension hx
Hyperphosphatemia
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
Hyperphosphatemia
PEG
Hx of Non-ST elevation [place]
History of stroke with subsequent left hemiparesis dysarthria and dysphagia
Tunneled right HD IJ catheter
Chronic impacted right proximal humerus fracture
hypercalcemia resolved after parathyroidectomy
Plan:
HD TTS at [place]
off sensipar as serum calcium now normalized following parathyroidectomy surgery 08/04/24
Midodrine on dialysis to support blood pressure
Continue phosphate binder therapy for hyperphosphatemia
PAPITO therapy to provided for anemia
Dialysis tomorrow
-
-
Date of Service: September 14, 2024
CC / HPI / ROS
-
Chief Complaint:
ESRD
History of Present Illness:
ESRD TTS
hemodynamically stable
Review of Systems:
no chest pain or sob
Labs
-
Labs:
WBC 10.3 10^3/uL (4.8-10.8) 09/14/24 05:51
RBC 2.81 10^6/uL (4.70-6.10) L 09/14/24 05:51
Hgb 8.4 g/dL (13.0-18.0) L 09/14/24 05:51
Hct 26.3 % (39.0-52.0) L 09/14/24 05:51
Plt Count 214 10^3/uL (130-400) 09/14/24 05:51
Sodium 134 mmol/L (135-145) L 09/14/24 05:51
Potassium 4.5 mmol/L (3.5-5.1) 09/14/24 05:51
Chloride 96 mmol/L (98-107) L 09/14/24 05:51
Carbon Dioxide 32 mmol/L (22-30) H 09/14/24 05:51
BUN 36 mg/dl (9-20) H 09/14/24 05:51
Creatinine 3.2 mg/dL (0.7-1.3) H 09/14/24 05:51
eGFR 20.18 09/14/24 05:51
Glucose 107 mg/dl (70-99) H 09/14/24 05:51
Calcium 9.3 mg/dl (8.4-10.2) 09/14/24 05:51
Albumin 4.2 g/dl (3.5-5.0) 09/10/24 18:23
Physical Exam
-
Vital Signs:
Vital Signs
Temp Pulse Resp BP Pulse Ox
97.5 F 71 18 142/84 95
09/14/24 10:30 09/14/24 07:34 09/14/24 07:34 09/14/24 07:34 09/14/24 09:00
Cardiovascular:: Regular rate and rhythm
Respiratory:: Bilateral: Coarse
Lung Excursion:: Normal
Abdomen:: Nontender and Soft
Extremity Edema:: None: Bilateral:
Bender Catheter: No
Other Findings::
tunneled catheter site
mild redness at anchoring suture area, no drainage
--- NOTE | 2024-09-14 13:18 | PN.CDI ---
CDI
- -
CDI:
Physician Documentation Request
Admit Date: 09/10/24 22:48
Dear Doctor Zay,
Please review the following and provide your response in the progress notes.
Clinical Indicators:
Pt admitted with infected left heel wound
Documented per WO care note 09/11, 'Patient admitted with: L lateral posterior dry black eschar suspect r/t PAD, L dorsal great, 2nd, 3rd, 4th toe dry brown necrotic ulcers suspect r/t PAD. R heel blanchable red. Sacral dry scab, healing stage 2.
Coccyx small dry scabs, healing stage 2. +Palpable R pedal pulse....Silicone border foam changed on sacral/coccyx. Skin prep applied to L heel ulcer. Slipper sock reapplied. Foam dressing changed on R heel. TruVue lite boots applied. Air chair
cushion under heels/boots. Suspect patient sometimes digs his heel to move up in bed...'
Physician documentation of the type and location of wounds is required for compliant documentation. Based on the above clinical findings and your assessment, please provide the following in your progress note:
1. Location of the ulcer/wound, including laterality( FOR EACH WOUND)
2. Type (etiology) of ulcer/wound:
- Arterial (ischemic) ulcer/PVD
- Pressure (decubitus) ulcer
- Non-pressure ulcer
- Other ( please specify)
Use of terms such as suspected, likely, concern for, or probable (associated with a specific diagnosis that is being evaluated, monitored, or treated as if it exists) are acceptable and can be coded in the inpatient setting, when documented at the
time of discharge.
Thank you,
Marva Bowling RN
CDI Specialist
[facility]
Please use your independent medical judgment in providing your response.
*Source: National Pressure Ulcer Advisory Panel (NPUAP)
[2024-09-14] MEDS: DUONEB INH (14:20)
--- NOTE | 2024-09-14 14:39 | W.SUR.POST ---
Surgical Immediate Post Op
Note
Pre Op Diagnosis: Critical limb ischemia
Post Op Diagnosis: Critical limb ischemia
Procedure Performed: LLE angiogram, intravascular lithotripsy of popliteal/PT artery with shockwave [place], 5x60 drug eluting stent placement ([place] PTX), balloon angioplasty of DP and peroneal vessels, with resulting two vessel runoff (DP and
Peroneal).
Primary Surgeon: Christos Bender III, MD
Secondary Surgeons: Vincent Hunt MD
Anesthesia: see anesthesia report
Estimated Blood Loss: 2 cc
Fluids: see anesthesia report
Drains/Shunts: none
Specimens/Cultures: none
Doppler/Duplex/Angio (Y/N): Y
Complications: none
Operative Findings: Occluded/stenotic popliteal artery with single vessel (PT) runoff. Intravascular lithotripsy with return of popliteal flow,
[2024-09-14 15:09] LABS: Glucose - Point of Care 81 mg/dl (70-99)
[2024-09-14] MEDS: PLAVIX 300 MG PO (15:39)
--- NOTE | 2024-09-14 16:27 | PTCARENOTE ---
Received pt from PACU via bed. Pt AAOX3. R groin dressing CDI. Pt denies pain/SOB. Call pérez within reach. Plan of care ongoing.
[2024-09-14 17:04] LABS: Glucose - Point of Care 79 mg/dl (70-99)
--- NOTE | 2024-09-14 20:15 | OR.RPT ---
Operative Report
Operative Report
Date of Operation: 09/14/2024
Pre Op Diagnosis:
1. 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
2. End-stage renal disease requiring hemodialysis
Post Op Diagnosis:
1. 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
2. End-stage renal disease requiring hemodialysis
Procedure:
1.) Intravascular lithotripsy to left popliteal artery occlusion (Shockwave Javelin)
2.) Intravascular lithotripsy to left posterior tibial artery (Shockwave Javelin)
3.) Balloon angioplasty and drug-eluting stent placement to left below the knee popliteal artery and tibioperoneal trunk (5 mm x 60 mm Zilver PTX)
4.) Balloon angioplasty of left posterior tibial artery (3.5 mm x 150 mm balloon)
5.) Balloon angioplasty of left peroneal artery (2.5 mm x 220 millimeter balloon)
6.) Diagnostic left lower extremity arteriogram
7.) Ultrasound-Guided percutaneous antegrade access to the left common femoral artery
Surgeon: Christos Bender III, MD
Marketing Analytics Manager: Vincent Hunt MD PGY-6
Anesthesia: Sedation with local
Fluoroscopy:
36.7 min
69 mGy
10.77 gy.cm2
Complications: None
Estimated Blood Loss: Less than 20 cc
History and Indications for Procedure: 69-year-old male with end-stage renal disease requiring hemodialysis. He has had a prior stroke. He developed a gangrenous ulcer on his left heel. We recommended an arteriogram and possible endovascular
intervention.
Procedure in Detail: Josh Duke was correctly identified and placed supine on the operating table. After adequate induction of anesthesia the bilateral groins were prepped and draped in the usual sterile fashion. A timeout was performed with the
nursing and anesthesia staff confirming the patient's identity as well as the nature and laterality of the procedure.
The left common femoral artery was identified under ultrasound guidance. The artery was patent. The superior and inferior aspects of the femoral head were identified with radiographic guidance and marked at the skin level. The proposed puncture site
was infiltrated with local anesthesia. Under ultrasound guidance we accessed the left common femoral artery at the SFA origin in an antegrade direction with a micropuncture needle and upsized to a 5 Fr sheath over a Appbistroson wire. A diagnostic left
lower extremity arteriogram was then performed which demonstrated the following:
Left LOWER EXTREMITY:
Superficial femoral artery: Patent. Heavily calcified.
Popliteal artery: Patent above the knee and behind the knee. Distal popliteal artery below the knee occluded
Anterior tibial artery: Occluded
Tibioperoneal trunk: Reconstituted. High-grade stenosis. Heavily calcified
Peroneal artery: Reconstituted. Diffuse high-grade stenosis. Heavily calcified
Posterior tibial artery: Reconstituted. Patent with areas of high-grade stenosis. Heavily calcified throughout
ENDOVASCULAR INTERVENTION: Systemic heparin was administered. Exchanged out for a 6 Fr sheath using a Glidewire and quick cross catheter we were able to cross through the popliteal artery occlusion. The wire and catheter were navigated through the
tibioperoneal trunk and into the posterior tibial artery. An arteriogram confirmed position in the true lumen. Exchanged out for a 0.014 wire which was positioned in the distal posterior tibial artery.
Due to the heavily calcified nature of the popliteal artery, tibioperoneal trunk and posterior tibial artery disease and in an effort to successfully cross the lesion, modify the calcium and achieve luminal gain with endovascular intervention I
elected to proceed with intravascular lithotripsy with a Shockwave Javelin catheter. The Javelin catheter was brought into position under radiographic guidance over the 0.014 wire. The Javelin catheter was advanced through the popliteal artery,
tibioperoneal trunk and posterior tibial artery while simultaneously delivering lithotripsy pulses. 120 pulses were delivered. Subsequent arteriogram demonstrated noticeable improvement with a now patent popliteal artery and tibioperoneal trunk.
I then treated the posterior tibial artery and tibioperoneal trunk with a 3.5 mm x 150 mm angioplasty balloon. This was positioned in the desired location under roadmap guidance, inflated to nominal pressure and held in place for 3-minute
inflation. Subsequent arteriogram demonstrated significant improvement in the tibioperoneal trunk and posterior tibial artery. There was significant residual stenosis in the TP trunk and the popliteal artery below the knee near the anterior tibial
artery takeoff. I then brought into position a 5 mm x 60 mm Zilver PTX stent. The stent was positioned in the tibioperoneal trunk and below-knee popliteal artery and deployed in the desired location. The stent was profiled with a 4 mm angioplasty
balloon. Subsequent arteriogram demonstrated significant improvement in the appearance of the below-knee popliteal artery and tibioperoneal trunk with no significant residual stenosis remaining. Brisk flow was identified through the posterior
tibial artery. I then selected the peroneal artery with a Quickcross catheter and Glidewire. I then exchanged out for a 0.014 wire and advanced this to the distal peroneal artery. The peroneal artery was treated with a 2.5 mm x 220 mm angioplasty
balloon. The entire length of artery was treated. The balloon was positioned in the desired location under roadmap guidance, inflated to nominal pressure and held in place for 3-minute inflation. 2 separate inflations were performed to treat the
entire length of the peroneal artery. Subsequent arteriogram demonstrated a significantly improved result but there was an area of focal high-grade stenosis remaining in the proximal artery. This was treated successfully with a 2.5 mm x 20 mm
noncompliant balloon at burst pressure.
COMPLETION ARTERIOGRAM: Significantly improved result. Patent popliteal artery and tibioperoneal trunk stent with no significant residual stenosis identified. Patent posterior tibial artery and peroneal artery. Posterior tibial artery continue
across the ankle to supply the foot. Pedal arch patent with retrograde flow through the dorsalis pedis artery identified.
Satisfied with this result we concluded the procedure. Protamine was administered. The sheath was pulled and direct manual pressure was held over the puncture site until hemostasis was achieved. A sterile dressing was applied.
The patient tolerated the procedure well and was taken to the recovery area in stable condition.
Attestation: I was present and responsible for the entire procedure.
Signed:
Christos Bender III, MD
Vascular Surgery
[facility]
[2024-09-14] MEDS: MELATONIN 5 MG TUBE (21:50)
[2024-09-14] MEDS: REGLAN 5 MG TUBE (21:50)
[2024-09-14] MEDS: REMOVE LIDOCAINE PATCH 1 PATCH REMOVE (21:52)
[2024-09-15] LABS: Glucose - Point of Care 139 mg/dl (70-99)
[2024-09-15] MEDS: DILAUDID 0.25 MG IV ×3 (00:05→09:49)
[2024-09-15] MEDS: HEPARIN 5000 UNITS SC ×2 (00:29→08:22)
--- NOTE | 2024-09-15 02:25 | DOWNTIME ---
There was a Interactive Fitness Client Crm Analyst Downtime on 09/15/2024 from 0100 to 09/15/2024 at 0220. Downtime documentation of patient's care, including medication administrations, has been reconciled in the electronic record per guidelines. Refer to the
patient's paper chart under the miscellaneous tab to see printed paper medication records and downtime forms.
[2024-09-15 03:23] VITALS: BP 127/77
[2024-09-15 05:56] LABS: Glucose - Point of Care 113 mg/dl (70-99)
[2024-09-15 06:10] VITALS: BMI 15.4
[2024-09-15] MEDS: DUONEB INH ×2 (07:45→13:25)
[2024-09-15 07:47] LABS: Glucose - Point of Care 116 mg/dl (70-99)
[2024-09-15 07:50] VITALS: BP 124/73
[2024-09-15] MEDS: SEVELAMER CARBONATE TUBE ×2 (08:19→11:59)
[2024-09-15] MEDS: LIDOCAINE 4% PATCH 1 PATCH TOPICAL (08:20)
[2024-09-15] MEDS: PREVACID 30 MG TUBE (08:21)
[2024-09-15] MEDS: PLAVIX 75 MG PO (08:21)
[2024-09-15] MEDS: REGLAN 5 MG TUBE (08:21)
[2024-09-15] MEDS: WELLBUTRIN REGULAR RELEASE 150 MG TUBE (08:21)
[2024-09-15] MEDS: LOW STRENGTH ASPIRIN 81 MG TUBE (08:22)
[2024-09-15] MEDS: COLACE LIQUID 100 MG TUBE (08:22)
[2024-09-15] MEDS: CRESTOR 20 MG TUBE (08:22)
[2024-09-15] MEDS: SENOKOT 17.2 MG TUBE (08:35)
[2024-09-15] MEDS: ROXICODONE 5 MG TUBE (08:35)
--- NOTE | 2024-09-15 09:39 | W.PN.HOSP.TC ---
Addendum entered and electronically signed by Kiana Collazo MD 09/15/24 20:49:
Mild Hyponatremia
Addendum entered and electronically signed by Kiana Collazo MD 09/15/24 14:41:
sacral/coccyx stage 2 healing pressure ulcer
Original Note:
Today's Communication/Plan
-
Discharge
Assessment / Plan
Assessment / Plan
Physical Exam
General: Comfortable and Conversant
HEENT: Anicteric and Moist mucous membranes
Respiratory: Clear and Non Labored Respirations
Cardiac: S1/S2 and Regular Rhythm
GI: Soft, Non Tender and Peg Tube
Musculoskeletal: No Clubbing, No Cyanosis
Skin: Warm, Dry, Lt foot dressing dry intact
Neuro: Left Hemiparesis, AOx3 conversant coherent
Psych: Calm
69M past medical history of CVA with residual Lt hemiparesis and dysphagia s/p PEG Tube, ESRD, Hypertension, Hyperlipidemia and Hypothyroidism who presents with worsening left heel wound. 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 Patient reports increasing pain in the left heel. Denied fevers, sweats or chills.
Worsening Left Foot Wounds
Lt heel wound Arterial (ischemic) ulcer/PVD
-Patient reports worsening pain raising concern that wounds are vascular in nature
-BREANA appreciated Findings compatible with infrapopliteal disease.
-Consult Wound Care appreciated
-Consult Vascular Surgery appreciated Angioplasty stent placement LLE 09/14 ASA Plavix
-ESR
CXR
no acute abn's, small left pleural effusion
Constipation
cont home colace
suppository and fleet enema attempted without improvement
09/13 milk and molasses enema ordered
CVA with Residual Left Hemiparesis, and Dysphagia s/p PEG Tube
Carotid Artery Disease s/p Right CEA
-Patient is able to transfer to wheelchair with pediatric medical assistant
-He remains NPO except ice chips with tube feedings via PEG
-Continue aspirin, plavix added following LLE stent placement as above
ESRD on HD TuThSa
-Consult Nephrology appreciated
-Monitor Is&Os - Patient reports he still makes urine
-continue Renvela
Essential Hypertension
-Continue losartan
Hyperlipidemia
-Continue rosuvastatin
GERD / GI Bleed
-Continue lansoprazole
BPH
-Continue Flomax
Depression
-Continue bupropion
PT/OT SNF rehab
DVT proph: SC Heparin
Code Status: Full Code
Medically stable for discharge back to [facility] with outpatient follow up recommendations
Discussed with patient and patient's daughter Tawnya
Total Time Preparing Discharge ___40____ minutes including examination of the patient, summary of the hospital stay, instructions for continuing care to all relevant caregivers; and preparation of discharge records, prescriptions, and referral
forms if necessary.
Anticipated Discharge: Today
Subjective/Interval History
-
Date of Service: September 15, 2024
Seen and examined at bedside in no acute distress resting comfortably in bed. Overall reports feeling well. Denies new acute issues at this time.
Objective Data
-
Labs:
Laboratory Results
09/15/24
06:00
WBC Pending
Hgb Pending
Hct Pending
Plt Count Pending
Sodium Pending
Potassium Pending
Chloride Pending
Carbon Dioxide Pending
BUN Pending
Creatinine Pending
Glucose Pending
Calcium Pending
Vital Signs:
Vital Signs
Temp Pulse Resp BP Pulse Ox
97.3 F 70 18 124/73 99
09/15/24 07:50 09/15/24 07:50 09/15/24 07:50 09/15/24 07:50 09/15/24 07:50
I&O
09/14/24 09/15/24 09/16/24
06:59 06:59 06:59
Intake Total 0 / 0 0 / 0
Balance 0 / 0 0 / 0
--- NOTE | 2024-09-15 10:59 | W.PN.VS ---
Today's Communication / Plan
-
See below.
Assessment/Plan
-
Assessment: 69-year-old male POD #1
1.) Intravascular lithotripsy to left popliteal artery occlusion (Shockwave Javelin)
2.) Intravascular lithotripsy to left posterior tibial artery (Shockwave Javelin)
3.) Balloon angioplasty and drug-eluting stent placement to left below the knee popliteal artery and tibioperoneal trunk (5 mm x 60 mm Zilver PTX)
4.) Balloon angioplasty of left posterior tibial artery (3.5 mm x 150 mm balloon)
5.) Balloon angioplasty of left peroneal artery (2.5 mm x 220 millimeter balloon)
6.) Diagnostic left lower extremity arteriogram
7.) Ultrasound-Guided percutaneous antegrade access to the left common femoral artery
Plan:
Can remove Tegaderm from left groin later this afternoon, can leave open to air once removed
Please continue Plavix 75 mg p.o. daily along with aspirin 81 mg p.o. daily
Follow-up ultrasound and appointment placed in discharge instructions
We will sign off please call with questions or concerns
Subjective Data
-
Date of Service: September 15, 2024
Patient seen and examined at bedside, offers no complaints. Denies left groin puncture site pain.
Objective Data
-
Vital Signs
Temp Pulse Resp BP Pulse Ox
97.3 F 70 18 124/73 99
09/15/24 07:50 09/15/24 07:50 09/15/24 07:50 09/15/24 07:50 09/15/24 07:50
Intake and Output
09/14/24 09/15/24 09/16/24
06:59 06:59 06:59
Intake Total 0 / 0 0 / 0
Balance 0 / 0 0 / 0
Intake:
Oral fluids 0 / 0 0 / 0
IV fluids (Total) 0 / 0 0 / 0
nss 0 / 0
IV piggybacks 0 / 0
Calcium 9.3 mg/dl (8.4-10.2) 09/14/24 05:51
Total Bilirubin 0.9 mg/dl (0.2-1.3) 09/10/24 18:23
AST 25 U/L (17-59) 09/10/24 18:23
ALT 16 U/L (0-50) 09/10/24 18:23
Alkaline Phosphatase 257 U/L (38-126) H 09/10/24 18:23
Total Protein 7.8 g/dl (6.3-8.2) 09/10/24 18:23
Albumin 4.2 g/dl (3.5-5.0) 09/10/24 18:23
Physical Exam
-
No apparent distress, resting in bed comfortably
No tachycardia
No dyspnea on room air
ABD flat, nontender, nondistended, PEG tube CDI
Left groin puncture site CDI, no evidence of hematoma, all surrounding compartments soft
[2024-09-15 11:54] LABS: Glucose - Point of Care 102 mg/dl (70-99)
[2024-09-15 12:53] LABS: Hematocrit 25.4 % (39.0-52.0); Hemoglobin 8.1 g/dL (13.0-18.0); Mean Corp Hgb Conc. 31.9 g/dL (33.0-37.0); Mean Corpuscular Volume 94.1 fL (80.0-94.0); Platelet Count 220 10^3/uL (130-400); Red Cell Dist. Width 17.5 % (11.5-14.5)
--- NOTE | 2024-09-15 13:38 | W.PN.NEPH.HD ---
Assessment
-
Tolerating dialysis
Progress Note - Hemodialysis
-
Date of Service: September 15, 2024
Duration: 30 minutes and 3 hours
Potassium Bath: 3
Calcium Bath: 2.5
Opti-Dialyzer: 160
Ultrafiltration: Other (1 to 2 kg)
Blood Flow: 400
Dialysate Flow: 600
Heparin: None
EPO: 8000
[2024-09-15 13:57] LABS: Blood Urea Nitrogen 60 mg/dl (9-20); Calcium 9.0 mg/dl (8.4-10.2); Carbon Dioxide 29 mmol/L (22-30); Chloride 94 mmol/L (98-107); Estimated Creatinine Clearance 12 ml/min; Glucose 83 mg/dl (70-99); Potassium 4.7 mmol/L (3.5-5.1); Sodium 130 mmol/L (135-145); eGFR 14.56
--- NOTE | 2024-09-15 14:10 | CM ---
Pt cleared for discharge to [facility]. Updated clinical sent via [facility]. Return to [facility] today via ambulance. Daughter notified of discharge. IMM reviewed via telephone and she provided verbal consent.
LESLIE spoke with Tamica at [facility] who will accept pt back today. Ambulance transport requested.
[facility] Report:[phone]
[facility]
--- NOTE | 2024-09-15 14:12 | W.DCSUMMARY ---
Discharge Summary
Discharge Data
Date of Admission: 09/10/24
Date of Discharge: 09/15/24
-
Pending Results: No
Discharge Plan
-
Patient Disposition: Skilled Nursing/SNF
Discharge Diagnosis/Procedures: Left heel wound Arterial (ischemic) ulcer/peripheral vascular disease
Status post Angioplasty Left Lower extremity with stent placement 09/14/24
small left pleural effusion
End Stage Renal Disease on Dialysis
History Stroke with Residual Left Hemiparesis and Dysphagia s/p PEG Tube
Condition: Fair
Diet: Tube feeding
Activity: As tolerated
Driving Restrictions: As prior to admission
Bathing Restrictions: OK to Shower
Others Tests: Your repeat arterial ultrasound is scheduled here at [facility] on 10/08/2024 at 9AM
Repeat Chest X-ray with primary care provider in 1 month of discharge follow up small pleural effusion.
Other Services: PT and OT
Activity Restrictions/Additional Instructions:
Wound Care Instructions
L heel eschar-swab with Betadine daily, cover with slipper sock or ABD pad and stockinet.
L toe dry necrotic ulcers-swab with Betadine daily.
R heel-protective foam dressing, change q 3 days and prn loosened dressing.
Sacral/coccyx-clean with saline, silicone border foam, change q 3 days and prn loosened dressing.
Healed penis tip (underside) ulcer-zinc barrier ointment (i.e. Calazime) bid.
Air mattress
turning schedule
Elevate heels off bed; Soft heel relief boots as tolerated (i.e. TruVue lite boots), air chair cushion under heels/boots.
Pressure redistributing chair cushion (i.e. Air chair cushion, Roho).
Follow up with vascular surgeon.
Follow up at wound care center call for an appointment.
Follow up with primary care provider in 1 week of discharge and keep your appointment with vascular specialist.
Plavix has been added to your medication regimen for recent stent placement left lower extremity.
Miralax daily has been prescribed for treatment prophylaxis constipation.
Oxycodone prescribed as needed for pain.
Please take medications as prescribed/recommended and follow up with primary care provider and/or other healthcare provider involved in your care for refills and/or further adjustment to your medication regimen as necessary.
Stand Alone Forms: Vascular Surg Discharge Instr
Referrals:
ISRAEL ROBERTS MD [Family Provider, Internal Medicine] - in one week
Laverne Rizzo CRNP [Specified Professional Personl, Vascular Surgery] - 10/15/24 1:00 pm
Prescriptions:
New
clopidogrel 75 mg Tablet
75 mg PO DAILY Qty: 90 0RF
polyethylene glycol 3350 17 gram Powder In Packet
17 g feeding tube DAILY Qty: 30 0RF
Rx Instructions:
hold if diarrhea
Continued
albuterol sulfate 2.5 mg /3 mL (0.083 %) Solution For Nebulization
2.5 mg INHALATION R Q4HPRN PRN (Reason: SOB)
aspirin 81 mg Tablet,Delayed Release (Dr/Ec)
81 mg feeding tube DAILY
bupropion HCl 100 mg Tablet
150 mg PO BID
Rx Instructions:
via PEG-TUBE.
tamsulosin [Flomax] 0.4 mg Capsule
0.4 mg PO MOWEFR
Rx Instructions:
via PEG-TUBE.
bisacodyl [Dulcolax (bisacodyl)] 10 mg Suppository
10 mg MD DAILYPRN PRN (Reason: if no BM in 4 days)
Patient Comments:
09/10/2024, give on day 5.
melatonin 5 mg Tablet
5 mg feeding tube HS
sevelamer carbonate [Renvela] 0.8 gram Powder In Packet
0.8 g feeding tube AC
losartan 25 mg Tablet
25 mg feeding tube SuTuThSa@1900 Qty: 30 0RF
folic acid 1 mg Tablet
1 mg feeding tube DAILY Qty: 30 0RF
docusate sodium 50 mg/5 mL Liquid
100 mg feeding tube BID
sennosides [senna] 8.6 mg Tablet
17.2 mg feeding tube DAILY
ipratropium-albuterol 0.5 mg-3 mg(2.5 mg base)/3 mL Solution For Nebulization
3 ml INHALATION R TID
lidocaine 4 % Adhesive Patch,Medicated
1 patch TOPICAL BID
acetaminophen [Tylenol Extra Strength] 500 mg Tablet
1,000 mg feeding tube TID
metoclopramide HCl [Reglan] 5 mg Tablet
5 mg feeding tube TID
magnesium hydroxide [Milk of Magnesia] 400 mg/5 mL Suspension
30 ml feeding tube DAILYPRN PRN (Reason: if no BM in 3 days)
Whdte-Iq-Plb Enema 19-7 gram/118 mL Enema
118 ml MD DAILYPRN PRN (Reason: if no BM in 5 days)
Patient Comments:
09/10/2024, give on day 6.
ondansetron 4 mg Tablet,Disintegrating
4 mg feeding tube Q8HPRN PRN (Reason: nausea/vomiting)
lansoprazole 30 mg Tablet,Disintegrat, Delay Rel
30 mg feeding tube DAILY
Artificial Tears(pvalch-povid) 0.5-0.6 % Drops
1 drp BOTH EYES Q2HPRN PRN (Reason: dry eyes)
Banana Flakes
1 packet feeding tube DAILY
midodrine 10 mg tablet
10 mg feeding tube Q8HPRN PRN (Reason: For SBP < 100)
rosuvastatin 20 mg tablet
20 mg feeding tube DAILY
Changed
oxycodone 5 mg tablet
5 mg feeding tube Q8HPRN PRN (Reason: moderate to severe pain) Qty: 9 0RF
Discharge Orders:
Discharge Patient (As Directed); Ordered 09/15/24
Ordered By: Kiana Collazo
Discharge Date and Time
Print Language: ALBANIAN
[2024-09-15] MEDS: RETACRIT 10000 UNITS IV (14:19)
--- NOTE | 2024-09-15 14:40 | PN.CDI ---
CDI
- -
CDI:
Physician Documentation Request
Admit Date: 09/10/24 22:48
Dear Doctor Zay,
Please review the following and provide your response in the progress notes.
Clinical Indicators:
Pt admitted with infected left heel wound /PVD with critical limb ischemia
Sodium labs are as below /Pt did get IVFs
09/12/24 09/14/24 09/15/24
12:11 05:51 12:34
Sodium 132 L 134 L 130 L
Based on the above, could you clarify in the progress notes, the appropriate diagnosis, if significant, that supports the above abnormalities and additional evaluation, monitoring and/or treatment rendered:
Hyponatremia
Abnormal lab value
Other ( please specify)
Use of terms such as suspected, likely, concern for, or probable (associated with a specific diagnosis that is being evaluated, monitored, or treated as if it exists) are acceptable and can be coded in the inpatient setting, when documented at the
time of discharge.
Thank you,
Marva Bowling RN
CDI Specialist
[facility] [employer]
Please use your independent medical judgment in providing your response.
[2024-09-15 15:00] VITALS: BP 142/82
== END 2024-09-15 17:52 | DRG 278 ==
LOC: 3 WEST ACU 22:48
PROVIDERS: Internal Medicine Nephrology; Nurse Practitioner; Physician Assistant; Physician Assistant Medical; ADMITTING PHYSICIAN Internal Medicine; ATTENDING PHYSICIAN Internal Medicine; EMERGENCY PHYSICIAN Student in an Organized Health Care Education/Training Program; FAMILY PHYSICIAN Internal Medicine; OTHER PHYSICIAN Specialist; OTHER PHYSICIAN Surgery Vascular Surgery
PROC: 5A1D70Z Performance of Urinary Filtration, Intermittent, Less than 6 Hours Per Day (ICD-10-PCS; 2024-09-12)
PROC: 047U3ZZ Dilation of Left Peroneal Artery, Percutaneous Approach (ICD-10-PCS; 2024-09-14)
PROC: 04FS3ZZ Fragmentation of Left Posterior Tibial Artery, Percutaneous Approach (ICD-10-PCS; 2024-09-14)
PROC: B41G1ZZ Fluoroscopy of Left Lower Extremity Arteries using Low Osmolar Contrast (ICD-10-PCS; 2024-09-14)
PROC: 047S3ZZ Dilation of Left Posterior Tibial Artery, Percutaneous Approach (ICD-10-PCS; 2024-09-14)
PROC: 047N34Z Dilation of Left Popliteal Artery with Drug-eluting Intraluminal Device, Percutaneous Approach (ICD-10-PCS; 2024-09-14)
PROC: 04FN3ZZ Fragmentation of Left Popliteal Artery, Percutaneous Approach (ICD-10-PCS; 2024-09-14)
DX: I70.262 Atherosclerosis of native arteries of extremities with gangrene, left leg (principal); N18.6 End stage renal disease; L97.429 Non-pressure chronic ulcer of left heel and midfoot with unspecified severity; I50.22 Chronic systolic (congestive) heart failure; N25.81 Secondary hyperparathyroidism of renal origin; I13.2 Hypertensive heart and chronic kidney disease with heart failure and with stage 5 chronic kidney disease, or end stage renal disease; I69.354 Hemiplegia and hemiparesis following cerebral infarction affecting left non-dominant side; E87.1 Hypo-osmolality and hyponatremia; E46 Unspecified protein-calorie malnutrition; Z68.1 Body mass index [BMI] 19.9 or less, adult; R64 Cachexia; Z99.2 Dependence on renal dialysis; I69.391 Dysphagia following cerebral infarction; E78.5 Hyperlipidemia, unspecified; R00.1 Bradycardia, unspecified; D63.1 Anemia in chronic kidney disease; E83.39 Other disorders of phosphorus metabolism; L89.152 Pressure ulcer of sacral region, stage 2; K59.00 Constipation, unspecified; F32.A Depression, unspecified; N40.0 Benign prostatic hyperplasia without lower urinary tract symptoms; R09.02 Hypoxemia; Z93.1 Gastrostomy status; I25.2 Old myocardial infarction
CPT/HCPCS: 71046; 73650; 75710; 80048; 80051; 80053; 80061; 82962; 83036; 85014; 85018; 85025; 85027; 85610; 85652; 86140; 86706; 87040; 87070; 87340; 93922; 93925; 94640; 96374; 96376; 97162; 97167; 99284; C1725; C1769; C1874; C1894; C9764; C9773; Q5106; Q9967

== ENCOUNTER → 2024-10-13 14:25 | Outpatient (REF) | payer MEDICARE, SELFPAY | LOC: DHVS 14:25 | PROVIDERS: ATTENDING PHYSICIAN Registered Nurse | DX: I73.9 Peripheral vascular disease, unspecified (principal) | CPT/HCPCS: 93922; 93925 ==

== ENCOUNTER 2024-11-03 15:26 | Emergency (ER) | payer MEDICARE, SELFPAY ==
[2024-11-03 15:28] VITALS: BP 156/95; BMI 18.0
[2024-11-03 16:00] VITALS: BP 152/94
[2024-11-03 17:00] VITALS: BP 158/92
[2024-11-03] MEDS: ROXICODONE ORAL SOLUTION 5 MG PO ×2 (17:52→19:40)
[2024-11-03 18:00] VITALS: BP 161/105
[2024-11-03 19:00] VITALS: BP 165/102
--- NOTE | 2024-11-03 19:33 | ED.GENMED ---
History of Present Illness
General
Chief Complaint: Catheter/Tube Problem
Source: patient
Exam Limitations: none
Time Seen by Provider: 11/03/24 16:38
History of Present Illness
History of Present Illness:
See MDM
Past History
Past History
ED Past Medical History: CVA
ED Past Surgical History: Other (PEG tube)
Social History
Tobacco: Non-smoker
Alcohol: None
Phy Exam
Physical Exam
Physical Exam:
See MDM
Course
Orders/Labs/Results
Orders:
Orders
11/03/24 16:53
Oxycodone [Roxicodone Oral Solution] 5 mg PO NOW STA
Tube Check [CR Cont Inj Eval Tube(by Rad)] Urgent
Comment:
Reason For Exam: PEG tube change
11/03/24 19:37
Oxycodone [Roxicodone Oral Solution] 5 mg PO NOW STA
Vital Signs
Initial and Last Documented VS:
Initial Vital Signs
Pulse Resp BP Pulse Ox
75 18 156/95 95
11/03/24 15:28 11/03/24 15:28 11/03/24 15:28 11/03/24 15:28
Last Documented Vital Signs
Temp Pulse Resp BP Pulse Ox
97.1 F 70 17 165/102 100
11/03/24 15:51 11/03/24 19:45 11/03/24 19:45 11/03/24 19:00 11/03/24 19:35
Procedures
Other
Indication for procedure:: PEG tube replacement
Procedure completed by: Greg Tillman DO
Consent form signed: No
Additional Procedure:
After verbal consent, his 16 [place] PEG tube was replaced with another 16 [place] PEG tube. Patient tolerated procedure well with no blood loss.
MDM/Problems Addressed
Differential Diagnosis Includes:
Note:
CHIEF COMPLAINT(S)
Dislodged Percutaneous Endoscopic Gastrostomy (PEG) tube.
HISTORY OF PRESENT ILLNESS
The patient presented with a dislodged PEG tube, which had been out for since 11AM. The original PEG tube was placed a couple of months ago following a stroke, presumably to assist with feeding due to swallowing difficulties. Since it fell out, the
tube site had begun to close, with some scabbing noted. The patient reported sensitivity around the area.
During this visit, local anesthesia was administered to alleviate discomfort, and the provider removed the scab. A new 16 [place] PEG tube with a 5-millimeter balloon was successfully inserted. The patient tolerated the procedure well despite some
discomfort. A study with a quick x-ray was planned to ensure proper placement of the tube.
The patient has commenced rehabilitation and reported improvement in swallowing. Prior to the tube placement, the patient was under anesthesia. There were discussions regarding long-term maintenance of the PEG tube.
PAST MEDICAL AND SURIGICAL HISTORY
The patient had a stroke.
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
The patient is undergoing rehabilitation for swallowing difficulties post-stroke.
REVIEW OF SYSTEMS
- Gastrointestinal: Dislodged PEG tube, difficulty with swallowing.
- Neurologic: History of stroke affecting swallowing.
PHYSICAL EXAM
General: Thin and frail
Skin: Warm, dry.
Head: Normocephalic, atraumatic
Neck: Appears supple, trachea midline.
Eyes, Ears, Nose, Mouth, and Throat: Oral mucosa moist.
Cardiovascular: No signs of cyanosis
Respiratory: Respirations are non-labored.
Abdomen: Non-distended. PEG site tube with scabbing
Musculoskeletal: No deformities
Neurological: No focal neurological deficit observed.
Psychiatric: Cooperative, appropriate mood and affect.
PLAN
- Perform x-ray to verify PEG tube placement.
- Administer oxycodone liquid for pain management after confirming tube placement with x-ray.
- Ensure arrangements for patient transportation following confirmation of x-ray results.
DIFFERENTIAL DIAGNOSIS
The Differential Diagnosis includes, in no particular order and is not limited to:
1. PEG tube displacement
2. PEG tube occlusion
3. Local infection at PEG site
4. Gastric leak
5. Peritonitis
6. Malnutrition
7. Aspiration pneumonia
8. Gastroesophageal reflux
9. Mechanical bowel obstruction
10. Tube site granulation tissue.
SUMMARY OF ENCOUNTER
The patient presented to the emergency department with a dislodged percutaneous endoscopic gastrostomy (PEG) tube, last noted out at 11 a.m. The tube site exhibited scabbing and was in the process of closing. After cleaning the area and removing the
scab, a replacement 16 [place] PEG tube was successfully inserted. The patient tolerated the procedure well. An x-ray was performed post-procedure to confirm proper placement of the PEG tube in the stomach.
DISPOSITION
Patient was discharged back to his facility.
ASSESSMENT
The patient had a dislodged PEG tube, which was successfully replaced and verified for proper placement via x-ray.
PLAN
An x-ray was performed to confirm the placement of the new PEG tube in the stomach. The tube was found to be correctly positioned.
INDEPENDENT REVIEW OF LABS AND INTERPRETATION OF TESTS
My independent interpretation of the x-ray shows the PEG tube correctly positioned in the stomach.
PROCEDURES
Replacement of 16 [place] PEG tube: The site was cleaned, scabbing was removed, and a new tube was inserted.
MEDICATION RECONCILIATION
No medications were administered during the visit nor prescribed upon discharge.
MEDICAL DECISION MAKING
-Complexity of Data Reviewed: Chronic conditions affecting care include a history of stroke. Differential Diagnosis includes PEG tube displacement, PEG tube occlusion, local infection at PEG site, gastric leak, peritonitis, malnutrition, aspiration
pneumonia, gastroesophageal reflux, mechanical bowel obstruction, and tube site granulation tissue.
-Data:
Category 1
My independent interpretation of the x-ray confirmed the PEG tube positioning in the stomach.
-Risk:
Consideration of Admission/Observation: Escalation of care including admission/observation was considered given the complexity and risk of the patients presenting complaint, exam findings, and/or their underlying comorbidities. However, ultimately I
feel the patient is safe for outpatient management with close follow-up. Reasoning: Work-up reassuring, does not reveal any acute life/organ-threatening processes, patients symptoms well controlled upon reevaluation, reexamination is reassuring,
vitals are stable, patient agreeable with discharge, reliable for follow-up.
DIAGNOSIS
Dislodged PEG tube - ICD-10: T85.623A
*Pulse Oximetry
SaO2: 100
Nasal Cannula flow liters per minute: 2
Oxygen Mode of Delivery: Room air
Patient hypoxic: no
*Critical Care Note
Total Time (30-74mins, 75-104mins- exclusive of procedures): Not Applicable
ED Attending Note
-
Portions of this chart may have been created with voice recognition software.� Occasional wrong word or��sound alike� substitutions may have occurred due to the inherent limitations of voice recognition software.
Discharge Plan
Departure
Patient Disposition: Home (Routine Discharge)
Date of Disposition: 11/03/24
Time of Disposition: 19:38
Patient with high blood pressure during this ER visit?: No
Discharge Problem:
PEG tube malfunction
Prescriptions:
No Action
albuterol sulfate 2.5 mg /3 mL (0.083 %) Solution For Nebulization
2.5 mg INHALATION R Q4HPRN PRN (Reason: SOB)
aspirin 81 mg Tablet,Delayed Release (Dr/Ec)
81 mg feeding tube DAILY
bupropion HCl 100 mg Tablet
150 mg PO BID
Rx Instructions:
via PEG-TUBE.
tamsulosin [Flomax] 0.4 mg Capsule
0.4 mg PO MOWEFR
Rx Instructions:
via PEG-TUBE.
bisacodyl [Dulcolax (bisacodyl)] 10 mg Suppository
10 mg AK DAILYPRN PRN (Reason: if no BM in 4 days)
Patient Comments:
09/10/2024, give on day 5.
melatonin 5 mg Tablet
5 mg feeding tube HS
sevelamer carbonate [Renvela] 0.8 gram Powder In Packet
0.8 g feeding tube AC
losartan 25 mg Tablet
25 mg feeding tube SuTuThSa@1900 Qty: 30 0RF
folic acid 1 mg Tablet
1 mg feeding tube DAILY Qty: 30 0RF
docusate sodium 50 mg/5 mL Liquid
100 mg feeding tube BID
sennosides [senna] 8.6 mg Tablet
17.2 mg feeding tube DAILY
ipratropium-albuterol 0.5 mg-3 mg(2.5 mg base)/3 mL Solution For Nebulization
3 ml INHALATION R TID
lidocaine 4 % Adhesive Patch,Medicated
1 patch TOPICAL BID
acetaminophen [Tylenol Extra Strength] 500 mg Tablet
1,000 mg feeding tube TID
metoclopramide HCl [Reglan] 5 mg Tablet
5 mg feeding tube TID
magnesium hydroxide [Milk of Magnesia] 400 mg/5 mL Suspension
30 ml feeding tube DAILYPRN PRN (Reason: if no BM in 3 days)
Ktbct-Cj-Rzn Enema 19-7 gram/118 mL Enema
118 ml AK DAILYPRN PRN (Reason: if no BM in 5 days)
Patient Comments:
09/10/2024, give on day 6.
ondansetron 4 mg Tablet,Disintegrating
4 mg feeding tube Q8HPRN PRN (Reason: nausea/vomiting)
lansoprazole 30 mg Tablet,Disintegrat, Delay Rel
30 mg feeding tube DAILY
Artificial Tears(pvalch-povid) 0.5-0.6 % Drops
1 drp BOTH EYES Q2HPRN PRN (Reason: dry eyes)
Banana Flakes
1 packet feeding tube DAILY
midodrine 10 mg tablet
10 mg feeding tube Q8HPRN PRN (Reason: For SBP < 100)
rosuvastatin 20 mg tablet
20 mg feeding tube DAILY
clopidogrel 75 mg Tablet
75 mg PO DAILY Qty: 90 0RF
polyethylene glycol 3350 17 gram Powder In Packet
17 g feeding tube DAILY Qty: 30 0RF
Rx Instructions:
hold if diarrhea
oxycodone 5 mg tablet
5 mg feeding tube Q8HPRN PRN (Reason: moderate to severe pain) Qty: 9 0RF
Referrals:
CASIEDOUS,AASIA [Other]
Activity Restrictions/Additional Instructions:
Please return for any worsening symptoms.
You may return at any time if you have further concerns.
Please follow up with your doctor at the first available appointment, preferably this week.
Thank you for choosing [facility].
Interventions
Interventions:
*Risk Screen - Suicide Last Done: 11/03/24 15:32
*General Assessment Last Done: 11/03/24 15:32
*Neglect/Abuse Screening Last Done: 11/03/24 15:32
*ED COVID-19 Vaccine History Last Done: 11/03/24 15:32
CE-Rqhbvx-Vztprduakz Assessment Last Done: 11/03/24 15:51
Discharge Date and Time
Print Language: NAMIBIAN
[2024-11-03 20:00] VITALS: BP 150/88
== END 2024-11-03 21:07 | disposition home or self-care (01) ==
LOC: EMR 15:26
PROVIDERS: EMERGENCY PHYSICIAN Student in an Organized Health Care Education/Training Program
DX: K94.23 Gastrostomy malfunction (principal); I69.391 Dysphagia following cerebral infarction
CPT/HCPCS: 43762; 99283; 49465